=== PATIENT | male | born 1945 | race Caucasian/White ===

== ENCOUNTER 2016-11-03 07:03 | Emergency (ER) | payer MEDICARE ==
--- NOTE | 2016-11-03 08:00 | RAD ---
Indication: Shortness of breath, pneumonia. 2 views of the chest including dual energy PA views are reviewed. Comparison is made with previous exam dated September 06, 2015. Prominent right adriano is again identified. Hyperinflated lung jules with chronic interstitial disease is noted. IMPRESSION: CHRONIC INTERSTITIAL DISEASE WITHOUT DEFINITE EVIDENCE OF PNEUMONIA.
[2016-11-03 08:34] VITALS: BP 178/80
--- NOTE | 2016-11-03 14:33 | UC ---
hardik Mckeon Timothy, scribed for Phoebe Posada MD on 11/03/16 at 0737 . Shortness of Breath HPI - HPI Summary HPI Summary: Omid Vargas is a 70 yo male presenting to [facility] with SOB since and a Hx of COPD. He states 10/31/16 he began having SOB and non-productive cough, which has been increasing. He finished a 7 day course of augmentin and prednisone 20 mg BID, last dose was yesterday. He states this time he felt his SOB was not resolved by ABx, and he feels out of breath with any movement. He states his Sx feel similar to pneumonia. he denies any fever. He states he did have a flu shot in June of 2016. His Hx also includes emphysema, asthma, prostatectomy, and former tobacco use. his PCP is Dr. Eagle, who treats him for COPD flare ups. - History of Current Complaint Stated Complaint: SOB COPD Time Seen by Provider: 11/03/16 07:33 Hx Obtained From: Patient Onset/Duration: Gradual Onset, Lasting Days, Still Present, Worse Since - now Timing: Constant Current Severity: Moderate Dyspnea At: Exertion Aggrevating Factors: Movement Alleviating Factors: Nothing Associated Signs & Symptoms: Positive: Cough (Nonproductive) - Risk Factors Pulmonary Embolism: Negative Cardiac: Elevated lipids Pseudomonas: Chronic Lung Disease Tuberculosis: Corticosteriod Use - Allergy/Home Medications Allergies/Adverse Reactions: Allergies Allergy/AdvReac Type Severity Reaction Status Date / Time Simvastatin Allergy See Comment Verified 11/03/16 07:13 Atorvastatin [From Lipitor] AdvReac Unknown Verified 11/03/16 07:13 Reaction Details Home Medications: Home Medications predniSONE TAB* [Deltasone TAB*] 1 tab 11/03/16 [History] PMH/Surg Hx/FS Hx/Imm Hx Endocrine History Of: Denies: Diabetes, Thyroid Disease Cardiovascular History Of: Reports: Hypertension Denies: Cardiac Disorders, Pacemaker/ICD Respiratory History Of: Reports: COPD, Asthma GI/ History Of: Denies: Ulcer - Surgical History Surgical History: Yes Surgery Procedure, Year, and Place: PROSTATECTOMY,Tonsilectomy - Family History Known Family History: Positive: Hypertension - Social History Lives: With Family Alcohol Use: None Substance Use Type: None Smoking Status (MU): Former Smoker Type: Cigarettes Amount Used/How Often: 30 +years When Did the Patient Quit Smoking/Using Tobacco: 2004 - Immunization History Most Recent Influenza Vaccination: Jun 2016 Most Recent Tetanus Shot: unable to determine Most Recent Pneumonia Vaccination: 2013 Review of Systems Constitutional: Negative Skin: Negative Eyes: Negative ENT: Negative Respiratory: Shortness Of Breath, Cough Cardiovascular: Negative Gastrointestinal: Negative Genitourinary: Negative Motor: Negative Neurovascular: Negative Musculoskeletal: Negative Neurological: Negative Psychological: Negative All Other Systems Reviewed And Are Negative: Yes Physical Exam Triage Information Reviewed: Yes Appearance: No Pain Distress, Well-Nourished, Ill-Appearing Vital Signs: Initial Vital Signs Temp 98.1 F 11/03/16 07:16 Pulse 90 11/03/16 07:16 Resp 20 11/03/16 07:16 Pulse Ox 91 11/03/16 07:16 Vital Signs Reviewed: Yes Eyes: Positive: Conjunctiva Clear ENT: Positive: Hearing grossly normal, TMs normal. Negative: Muffled/hoarse voice Neck: Positive: Supple, Nontender Respiratory: Positive: Chest non-tender, Lungs clear, No respiratory distress, Decreased breath sounds. Negative: Wheezing Cardiovascular: Positive: RRR, No Murmur, Pulses Normal, Brisk Capillary Refill Musculoskeletal: Positive: Strength Intact, ROM Intact Neurological: Positive: Alert, Muscle Tone Normal Psychological Exam: Normal Skin Exam: Normal Diagnostics - Radiology CXR Xray Interpretation: No Acute Changes - IMPRESSION: CHRONIC INTERSTITIAL DISEASE WITHOUT DEFINITE EVIDENCE OF PNEUMONIA. Radiology Interpretation Completed By: Radiologist Re-Evaluation - Re-Evaluation First Eval Re-Evaluation Time: 08:13 Change: Unchanged Comment: Pt is informed of CXR results. Shortness of Breath Dx - Course Course Of Treatment: Omid Vargas is a 70 yo male presenting to [facility] with SOB and worsening cough since 10/31/16. After negative CXR and clinical examination, he will be discharged home with COPD exacerbation and bronchitis a change in antibiotics and a 12 day prednisone taper, as well as appropriate instructions. - Differential Dx/Diagnosis Differential Diagnosis/HQI/PQRI: Bronchitis, COPD Exacerbation, Pneumonia Provider Diagnoses: copd exacerbation, bronchitis Discharge - Discharge Plan Condition: Stable Disposition: HOME Prescriptions: DOXYcycline CAP(*) [DOXYcycline 100MG CAP(*)] 100 mg PO BID #20 cap predniSONE TAB* [Deltasone TAB*] 40 mg PO DAILY #30 tab Patient Education Materials: COPD (Chronic Obstructive Pulmonary Disease) (ED) , Acute Bronchitis (ED) Referrals: Jelly Callahan MD [Primary Care Provider] - 2 Days Additional Instructions: Please follow up with your primary care physician regarding your visit to urgent care today. Return to urgent care or the emergency department with any new or recurring symptoms. The documentation as recorded by the hardik davis Timothy accurately reflects the service I personally performed and the decisions made by me, Phoebe Posada MD.
== END 2016-11-03 08:39 | disposition home or self-care (01) ==
LOC: UCEAST 07:03
DX: J44.1 Chronic obstructive pulmonary disease with (acute) exacerbation (principal); J20.9 Acute bronchitis, unspecified; J44.0 Chronic obstructive pulmonary disease with (acute) lower respiratory infection; Z88.8 Allergy status to other drugs, medicaments and biological substances; Z87.891 Personal history of nicotine dependence
CPT/HCPCS: 71020; 99212; G0463

== ENCOUNTER 2016-11-04 20:10 | Inpatient (IN) | payer MEDICARE ==
[2016-11-04] MEDS ORDERED: Albuterol 2.5 MG/3 ML NEB.SOL* (0.083%) INH ONE (20:40)
[2016-11-04] MEDS ORDERED: methylPREDNISolone SOD SUCC* 125 MG 2 ML VIAL IV ONE (20:44)
[2016-11-04] MEDS ORDERED: NS 0.9% 1000 ML* 1,000 ML IV SCH ×2 (20:45→23:15)
--- NOTE | 2016-11-04 21:15 | RAD ---
INDICATION: Shortness of breath COMPARISON: Similar chest x-ray dated November 03, 2016 as well as chest x-ray dated September 06, 2015 TECHNIQUE: Single AP portable view of the chest was obtained. FINDINGS: Image quality is compromised due to the relative inferiority of a portable chest x-ray. The heart and mediastinum exhibit normal size and contour. Again seen are faint bibasilar reticulonodular densities unchanged from the previous days chest x-ray. At the right lung base there are more focal linear and patchy densities. There is no evidence of a large pleural effusion. Visualized bones are normal for the patient's age. IMPRESSION: Chest x-ray findings are compatible with chronic interstitial lung disease with potential overlying infiltrate at the right lung base.
[2016-11-04 21:33] LABS: Albumin 3.8 g/dL (3.2-5.2); BUN/Creatinine Ratio 28.6 (8-20); C Reactive Protein 2.56 mg/L (< 5.00); Calcium 9.2 mg/dL (8.6-10.3); EGFR African American 97.5 (>60); EGFR Non-African American 75.8 (>60); Globulin 3.1 g/dL (2-4); Potassium 4.4 mmol/L (3.5-5.0); Total Bilirubin 0.7 mg/dL (0.2-1.0); Total Protein 6.9 g/dL (6.4-8.9)
[2016-11-04 21:39] LABS: Troponin I 0.16 ng/mL (<0.04)
[2016-11-04 21:41] LABS: Add Diff/Slide Review? Slide Review Added; Comments Flag Yes; Hematocrit 47 % (42-52); Hemoglobin 15.4 g/dl (14.0-18.0); Mean Corpuscular HGB Conc 33 g/dl (31-36); Mean Corpuscular Hemoglobin 30 pg (27-31); Mean Corpuscular Volume 93 fL (80-94); Mean Platelet Volume 8 um3 (7.4-10.4); Red Blood Count 5.08 10^6/ul (4.0-5.4); Red Cell Distribution Width 15 % (10.5-15); White Blood Count 17.2 10^3/ul (3.5-10.8)
[2016-11-04] MEDS ORDERED: Aspirin Low Dose CHEW TAB* 81 MG PO ONE (21:46)
[2016-11-04] MEDS ORDERED: Levofloxacin 750 MG IVPREMIX(* 750 MG/150 ML BAG IVPB ONE (21:52)
[2016-11-04] MEDS ORDERED: cefTRIAXone(*) 1 GM in NS 0.9% 50 ML* 50 ML IVPB ONE (21:52)
[2016-11-04] MEDS ORDERED: NS 0.9% 1000 ML* 1,000 ML IV ONE (21:53)
--- NOTE | 2016-11-04 21:54 | ED ---
Bjorn Mckeon Rebecca, scribed for Eran Ibarra MD on 11/04/16 at 2043 . Shortness of Breath - HPI Summary HPI Summary: Pt is a 70 y/o M who presents to ED c/o SOB. SOB began suddenly 3-4 days ago and has been constant and worsening since onset. SOB characterized as severe dyspnea at rest. Sx aggravated and alleviated by nothing. Additionally c/o chest congestion. Denies rhinorrhea and sore throat. PMHx COPD. - History of Current Complaint Chief Complaint: EDShortnessOfBreath Time Seen by Provider: 11/04/16 20:32 Hx Obtained From: Patient Onset/Duration: Sudden Onset, Lasting Days - 3-4 days, Still Present Timing: Constant Current Severity: Severe Dyspnea At: Rest Aggrevating Factors: Nothing Alleviating Factors: Nothing Associated Signs & Symptoms: Negative - Allergy/Home Medications Allergies/Adverse Reactions: Allergies Allergy/AdvReac Type Severity Reaction Status Date / Time Simvastatin Allergy See Comment Verified 11/03/16 07:13 Atorvastatin [From Lipitor] AdvReac Unknown Verified 11/03/16 07:13 Reaction Details PMH/Surg Hx/FS Hx/Imm Hx Endocrine/Hematology History: Denies: Hx Diabetes, Hx Thyroid Disease Cardiovascular History: Reports: Hx Hypertension Denies: Hx Pacemaker/ICD Respiratory History: Reports: Hx Asthma, Hx Chronic Obstructive Pulmonary Disease (COPD), Other Respiratory Problems/Disorders - COPD GI History: Denies: Hx Ulcer Sensory History: Reports: Hx Contacts or Glasses Denies: Hx Hearing Aid, Hx Hearing Problem Opthamlomology History: Reports: Hx Contacts or Glasses Psychiatric History: Denies: Hx Panic Disorder - Cancer History Cancer Type, 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 - Surgical History Surgery Procedure, Year, and Place: PROSTATECTOMY,Tonsilectomy Infectious Disease History: No Infectious Disease History: Denies: Hx Clostridium Difficile, Hx Hepatitis, Hx Human Immunodeficiency Virus (HIV), Hx of Known/Suspected MRSA, Hx Shingles, Hx Tuberculosis, Hx Known/ Suspected VRE, Hx Known/Suspected VRSA, History Other Infectious Disease, Traveled Outside the [place] in Last 30 Days - Family History Known Family History: Positive: Hypertension - Social History Alcohol Use: None Substance Use Type: Reports: None Hx Tobacco Use: No Smoking Status (MU): Former Smoker Type: Cigarettes Amount Used/How Often: 30 +years Review of Systems Negative: Sore Throat, Nasal Discharge Positive: Shortness Of Breath - dyspnea at rest, Other - Chest congestion All Other Systems Reviewed And Are Negative: Yes Physical Exam Triage Information Reviewed: Yes Vital Signs On Initial Exam: Initial Vitals Temp Pulse Resp BP Pulse Ox 98.6 F 111 18 130/77 92 11/04/16 20:23 11/04/16 20:23 11/04/16 20:23 11/04/16 20:23 11/04/16 20:23 Vital Signs Reviewed: Yes Appearance: Positive: No Pain Distress, Ill-Appearing - Severe respiratory distress Skin: Positive: Warm, Skin Color Reflects Adequate Perfusion, Dry Head/Face: Positive: Normal Head/Face Inspection Eyes: Positive: EOMI, KEVEN ENT: Positive: Normal ENT inspection Neck: Positive: Supple, Nontender Respiratory/Lung Sounds: Positive: Wheezes - Bilateral wheezes, Other - Poor air movement Cardiovascular: Positive: Tachycardia Abdomen Description: Positive: Nontender, Soft Bowel Sounds: Positive: Present Musculoskeletal: Positive: Normal, Strength/ROM Intact Neurological: Positive: Normal, Sensory/Motor Intact, Alert, Oriented to Person Place, Time Psychiatric: Positive: Affect/Mood Appropriate Diagnostics - Vital Signs Vital Signs Temp Pulse Resp BP Pulse Ox 11/04/16 20:23 98.6 F 111 18 130/77 92 - Laboratory Lab Results: Lab Results 11/04/16 11/04/16 11/04/16 Range/Units 21:00 21:00 21:00 WBC 17.2 H (3.5-10.8) 10^3/ul RBC 5.08 (4.0-5.4) 10^6/ul Hgb 15.4 (14.0-18.0) g/dl Hct 47 (42-52) % MCV 93 (80-94) fL MCH 30 (27-31) pg MCHC 33 (31-36) g/dl RDW 15 (10.5-15) % Plt Count 241 (150-450) 10^3/ul MPV 8 (7.4-10.4) um3 Neut % (Auto) 89.0 H (38-83) % Lymph % (Auto) 2.2 L (25-47) % [place] % (Auto) 8.7 (1-9) % Eos % (Auto) 0 (0-6) % Baso % (Auto) 0.1 (0-2) % Absolute Neuts (auto) 15.3 H (1.5-7.7) 10^3/ul Absolute Lymphs (auto) 0.4 L (1.0-4.8) 10^3/ul Absolute Monos (auto) 1.5 H (0-0.8) 10^3/ul Absolute Eos (auto) 0 (0-0.6) 10^3/ul Absolute Basos (auto) 0 (0-0.2) 10^3/ul Absolute Nucleated RBC 0 10^3/ul Nucleated RBC % 0 INR (Anticoag Therapy) 0.88 L (0.89-1.11) APTT 20.1 L (26.0-36.3) seconds Sodium 132 L (133-145) mmol/L Potassium 4.4 (3.5-5.0) mmol/L Chloride 97 L (101-111) mmol/L Carbon Dioxide 24 (22-32) mmol/L Anion Gap 11 (2-11) mmol/L BUN 28 H (6-24) mg/dL Creatinine 0.98 (0.67-1.17) mg/dL Est GFR ( Amer) 97.5 (>60) Est GFR (Non-Af Amer) 75.8 (>60) BUN/Creatinine Ratio 28.6 H (8-20) Glucose 186 H (70-100) mg/dL Lactic Acid (0.5-2.0) mmol/L Calcium 9.2 (8.6-10.3) mg/dL Total Bilirubin 0.70 (0.2-1.0) mg/dL AST 19 (13-39) U/L ALT 18 (7-52) U/L Alkaline Phosphatase 45 (34-104) U/L Total Creatine Kinase 80 (10-223) U/L CK-MB (CK-2) 9.2 H (0.6-6.3) ng/mL Troponin I 0.16 H* (<0.04) ng/mL C-Reactive Protein 2.56 (< 5.00) mg/L B-Natriuretic Peptide ( - 100) pg/mL Total Protein 6.9 (6.4-8.9) g/dL Albumin 3.8 (3.2-5.2) g/dL Globulin 3.1 (2-4) g/dL Albumin/Globulin Ratio 1.2 (1-3) Lipase 12 (11.0-82.0) U/L TSH Pending 11/04/16 11/04/16 Range/Units 21:00 21:00 WBC (3.5-10.8) 10^3/ul RBC (4.0-5.4) 10^6/ul Hgb (14.0-18.0) g/dl Hct (42-52) % MCV (80-94) fL MCH (27-31) pg MCHC (31-36) g/dl RDW (10.5-15) % Plt Count (150-450) 10^3/ul MPV (7.4-10.4) um3 Neut % (Auto) (38-83) % Lymph % (Auto) (25-47) % [place] % (Auto) (1-9) % Eos % (Auto) (0-6) % Baso % (Auto) (0-2) % Absolute Neuts (auto) (1.5-7.7) 10^3/ul Absolute Lymphs (auto) (1.0-4.8) 10^3/ul Absolute Monos (auto) (0-0.8) 10^3/ul Absolute Eos (auto) (0-0.6) 10^3/ul Absolute Basos (auto) (0-0.2) 10^3/ul Absolute Nucleated RBC 10^3/ul Nucleated RBC % INR (Anticoag Therapy) (0.89-1.11) APTT (26.0-36.3) seconds Sodium (133-145) mmol/L Potassium (3.5-5.0) mmol/L Chloride (101-111) mmol/L Carbon Dioxide (22-32) mmol/L Anion Gap (2-11) mmol/L BUN (6-24) mg/dL Creatinine (0.67-1.17) mg/dL Est GFR ( Amer) (>60) Est GFR (Non-Af Amer) (>60) BUN/Creatinine Ratio (8-20) Glucose (70-100) mg/dL Lactic Acid 4.4 H* (0.5-2.0) mmol/L Calcium (8.6-10.3) mg/dL Total Bilirubin (0.2-1.0) mg/dL AST (13-39) U/L ALT (7-52) U/L Alkaline Phosphatase (34-104) U/L Total Creatine Kinase (10-223) U/L CK-MB (CK-2) (0.6-6.3) ng/mL Troponin I (<0.04) ng/mL C-Reactive Protein (< 5.00) mg/L B-Natriuretic Peptide 99 ( - 100) pg/mL Total Protein (6.4-8.9) g/dL Albumin (3.2-5.2) g/dL Globulin (2-4) g/dL Albumin/Globulin Ratio (1-3) Lipase (11.0-82.0) U/L TSH Result Diagrams: 11/04/16 21:00 11/04/16 21:00 Lab Statement: Any lab studies that have been ordered have been reviewed, and results considered in the medical decision making process. - Radiology CXR Radiology Interpretation Completed By: Radiologist - Chest x-ray findings are compatible with chronic interstitial lung disease with potential overlying infiltrate at the right lung base. - EKG 2041 Cardiac Rate: Tachycardia - 128 bpm EKG Rhythm: Atrial Fibrillation - rapid ST Segment: Non-Specific - ST depression in V2-V6 Ectopy: None Re-Evaluation - Re-Evaluation First Eval Re-Evaluation Time: 20:53 Change: Improved Comment: Left pt's room to receive help, help went in and pt brought up a significant amount of phlegm. He is now more relaxed and decreased from severe to moderate respiratory distress. Second Eval Re-Evaluation Time: 21:53 Change: Improved Comment: Pt is feeling better. Course/Dx - Course Assessment/Plan: IMPROVED IN ED. ADMIT HOSPITALIST STABLE. - Diagnoses Provider Diagnoses: Pneumonia, COPD (chronic obstructive pulmonary disease), Troponin level elevated - Physician Notifications Discussed Care of Patient With: Dr. Smith, hospitalist, who accepts pt for admission. Time Discussed With Above Provider: 21:51 Discharge - Discharge Plan Condition: Stable Disposition: ADMITTED TO [facility] Referrals: Jelly Callahan MD [Primary Care Provider] - The documentation as recorded by the scribe, DiFabio,Lulú accurately reflects the service I personally performed and the decisions made by me, Eran Ibarra MD.
[2016-11-04 21:57] LABS: TSH (Thyroid Stimulating Horm) 0.77 mcIU/mL (0.34-5.60)
--- NOTE | 2016-11-04 22:20 | HP ---
H&P (Free Text) History and Physical: PCP: Isabell Garcia MD Pulmonology: Parker Villatoro/Michelle Date/Time of Evaluation: 11/04/20162214 CC: SOB, productive cough HPI: Mr Celis is a 70YO male HX COPD who reports having recurrent respiratory issues throughout the winter. 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 He presented to urgent care yesterday and was placed on doxycyline BID and his prednisone changed to 40mg daily which he said initially made him feel much better. However over the course of the day, his cough, SOB, & fatigue worsened prompting him to present for further evaluation. He denies F/C, N/V/D, chest pain, palpitations, abdominal pain, or other issues. His influenza & pneumonia vaccines are up to date. Evaluation reveals AFIB rate up to 130s with minimal ST depression V2-6, PMedHx COPD HTN HLD HX prostate CA s/p prostatectomy Allergies Simvastatin Allergy (Verified 11/03/16 07:13) See Comment "blood test came back, it wasn't compatible with me." Atorvastatin [From Lipitor] Adverse Reaction (Verified 11/03/16 07:13) Unknown Reaction Details states it elevates his LFT dramatically Ambulatory Orders Patient w/o medication list, will need reconciling in AM via Rx. PSurgHx tonsillectomy prostatectomy SocHx: former smoker, no alcohol or recreational drugs; lives with his ; full code status FamHx: Father passed in his 70s of a CVA. Mother passed in her sleep in her 60s. ROS: as above, otherwise reviewed and all were negative Constitutional: NAD, normally developed, well-nourished white male appearing older than his stated age vitals: Vital Signs Temp 37.0 C 11/04/16 20:23 Pulse 108 11/04/16 22:00 Resp 16 11/04/16 20:56 BP 126/80 11/04/16 22:00 Pulse Ox 95 11/04/16 22:00 Intake & Output 11/03/16 11/04/16 11/04/16 23:59 11:59 23:59 Weight 74.843 kg HEENM: atraumatic; sclera/conjunctiva: non-icteric/clear; hearing: clinically intact; oropharynx: clear, mucosa tacky Neck: soft tissue: non-tender; thyroid: normal Pulmonary: diminished B w/ tubular breath sounds in R base, poor aeration, mild accessory muscle use CV: TIR/IR, normal S1S2, no carotid bruit, no jugular venous distention, 2+ B DP /PT, no edema Abdominal: soft, non-distended, non-tender, no rebound/guarding/rigidity, normoactive bowel sounds, no hepatosplenomegaly or masses, no costovertebral angle tenderness Musculoskeletal: general: grossly intact; gait: calvin Integumental: normal appearance and texture of exposed skin Psychiatric orientation: AA&O to PPS affect: calm mood: cooperative eye contact: good content: reliable responses: timely insight: good Testing: Lab Results 11/04/16 11/04/16 11/04/16 Range/Units 21:00 21:00 21:00 WBC 17.2 H (3.5-10.8) 10^3/ul RBC 5.08 (4.0-5.4) 10^6/ul Hgb 15.4 (14.0-18.0) g/dl Hct 47 (42-52) % MCV 93 (80-94) fL MCH 30 (27-31) pg MCHC 33 (31-36) g/dl RDW 15 (10.5-15) % Plt Count 241 (150-450) 10^3/ul MPV 8 (7.4-10.4) um3 Neut % (Auto) 89.0 H (38-83) % Lymph % (Auto) 2.2 L (25-47) % [place] % (Auto) 8.7 (1-9) % Eos % (Auto) 0 (0-6) % Baso % (Auto) 0.1 (0-2) % Absolute Neuts (auto) 15.3 H (1.5-7.7) 10^3/ul Absolute Lymphs (auto) 0.4 L (1.0-4.8) 10^3/ul Absolute Monos (auto) 1.5 H (0-0.8) 10^3/ul Absolute Eos (auto) 0 (0-0.6) 10^3/ul Absolute Basos (auto) 0 (0-0.2) 10^3/ul Absolute Nucleated RBC 0 10^3/ul Nucleated RBC % 0 INR (Anticoag Therapy) 0.88 L (0.89-1.11) APTT 20.1 L (26.0-36.3) seconds Sodium 132 L (133-145) mmol/L Potassium 4.4 (3.5-5.0) mmol/L Chloride 97 L (101-111) mmol/L Carbon Dioxide 24 (22-32) mmol/L Anion Gap 11 (2-11) mmol/L BUN 28 H (6-24) mg/dL Creatinine 0.98 (0.67-1.17) mg/dL Est GFR ( Amer) 97.5 (>60) Est GFR (Non-Af Amer) 75.8 (>60) BUN/Creatinine Ratio 28.6 H (8-20) Glucose 186 H (70-100) mg/dL Lactic Acid (0.5-2.0) mmol/L Calcium 9.2 (8.6-10.3) mg/dL Total Bilirubin 0.70 (0.2-1.0) mg/dL AST 19 (13-39) U/L ALT 18 (7-52) U/L Alkaline Phosphatase 45 (34-104) U/L Total Creatine Kinase 80 (10-223) U/L CK-MB (CK-2) 9.2 H (0.6-6.3) ng/mL Troponin I 0.16 H* (<0.04) ng/mL C-Reactive Protein 2.56 (< 5.00) mg/L B-Natriuretic Peptide ( - 100) pg/mL Total Protein 6.9 (6.4-8.9) g/dL Albumin 3.8 (3.2-5.2) g/dL Globulin 3.1 (2-4) g/dL Albumin/Globulin Ratio 1.2 (1-3) Lipase 12 (11.0-82.0) U/L TSH 0.77 (0.34-5.60) mcIU/mL 11/04/16 11/04/16 Range/Units 21:00 21:00 WBC (3.5-10.8) 10^3/ul RBC (4.0-5.4) 10^6/ul Hgb (14.0-18.0) g/dl Hct (42-52) % MCV (80-94) fL MCH (27-31) pg MCHC (31-36) g/dl RDW (10.5-15) % Plt Count (150-450) 10^3/ul MPV (7.4-10.4) um3 Neut % (Auto) (38-83) % Lymph % (Auto) (25-47) % [place] % (Auto) (1-9) % Eos % (Auto) (0-6) % Baso % (Auto) (0-2) % Absolute Neuts (auto) (1.5-7.7) 10^3/ul Absolute Lymphs (auto) (1.0-4.8) 10^3/ul Absolute Monos (auto) (0-0.8) 10^3/ul Absolute Eos (auto) (0-0.6) 10^3/ul Absolute Basos (auto) (0-0.2) 10^3/ul Absolute Nucleated RBC 10^3/ul Nucleated RBC % INR (Anticoag Therapy) (0.89-1.11) APTT (26.0-36.3) seconds Sodium (133-145) mmol/L Potassium (3.5-5.0) mmol/L Chloride (101-111) mmol/L Carbon Dioxide (22-32) mmol/L Anion Gap (2-11) mmol/L BUN (6-24) mg/dL Creatinine (0.67-1.17) mg/dL Est GFR ( Amer) (>60) Est GFR (Non-Af Amer) (>60) BUN/Creatinine Ratio (8-20) Glucose (70-100) mg/dL Lactic Acid 4.4 H* (0.5-2.0) mmol/L Calcium (8.6-10.3) mg/dL Total Bilirubin (0.2-1.0) mg/dL AST (13-39) U/L ALT (7-52) U/L Alkaline Phosphatase (34-104) U/L Total Creatine Kinase (10-223) U/L CK-MB (CK-2) (0.6-6.3) ng/mL Troponin I (<0.04) ng/mL C-Reactive Protein (< 5.00) mg/L B-Natriuretic Peptide 99 ( - 100) pg/mL Total Protein (6.4-8.9) g/dL Albumin (3.2-5.2) g/dL Globulin (2-4) g/dL Albumin/Globulin Ratio (1-3) Lipase (11.0-82.0) U/L TSH (0.34-5.60) mcIU/mL ECG, personally reviewed: AFIB rate 128, minimal ST depression V2-6 CXR, personally reviewed: IMPRESSION: Chest x-ray findings are compatible with chronic interstitial lung disease with potential overlying infiltrate at the right lung base. Impression: 70M presenting with COPD exacerbation 2nd RLL CAP failed outpatient amoxicillin clavulanate DIAGNOSIS & PLAN Primary sepsis (tachycardia, tachypnea, leukocytosis) 2nd RLL CAP : IVFs : IV levofloxacin : supplemental oxygen : blood & sputum CXs : check rapid influenza : check S pneumo & Legionella urine antigens COPD exacerbation : albuterol nebs : mometasone/salmeterol : tiotropium : IV methylprednisolone : supplemental oxygen elevated troponin : suspect demand ischemia : telemetry : aspirin : metoprolol : trend : check ECHO in AM : consider cardiology consult in AM pending clinical course AFIB/RVR, new diagnosis : [id number] score 1 : at least partially compensatory for sepsis : plan on rate control to <120s : heparin GTT Secondary HTN : controlled : consider outpatient meds once reconciled HLD : continue medication once reconciled Admission Rational: inpatient for management of sepsis 2nd RLL CAP complicated by new onset AFIB/RVR DVTp: heparin GTT Code Status: full HCP:
[2016-11-04] MEDS ORDERED: Acetaminophen TAB* 325 MG PO PRN (23:11)
[2016-11-04] MEDS ORDERED: Albuterol 2.5 MG/3 ML NEB.SOL* (0.083%) INH PRN (23:11)
[2016-11-04] MEDS ORDERED: Melatonin (NF) 3 MG TAB PO PRN (23:12)
[2016-11-04] MEDS ORDERED: Ondansetron INJ* 2 MG/ML VIAL IV PRN (23:13)
[2016-11-04] MEDS ORDERED: Heparin DRIP 25,000 UNITS(*) 25,000 UNITS/500 ML BAG IVPB SCH (23:15)
[2016-11-05] MEDS: Albuterol 2.5 MG/3 ML NEB.SOL* (0.083%) INH SCH ×4 (01:20→19:49)
[2016-11-05] MEDS: Heparin VIAL(*) 5000 UNITS/ML VIAL (FIVE THOUSAND) IV SCH ×2 (01:39→06:09)
[2016-11-05] MEDS: Metoprolol Succinate XL TAB* 25 MG PO SCH ×2 (01:40→09:59)
--- NOTE | 2016-11-05 02:17 | PN ---
Progress Note - Progress Note Note: Troponin up to 1.4 from 0.16. Repeat ECG done, no change. Nursing reports no chest pain. Continue current management; aspirin, metoprolol, & heparin GTT. Will consult cardiology in AM & check ECHO.
[2016-11-05] MEDS: Omeprazole CAP* 20 MG PO SCH (05:23)
[2016-11-05 05:45] LABS: Hematocrit 42 % (42-52); Hemoglobin 13.8 g/dl (14.0-18.0); Mean Corpuscular HGB Conc 33 g/dl (31-36); Mean Corpuscular Hemoglobin 30 pg (27-31); Mean Corpuscular Volume 93 fL (80-94); Mean Platelet Volume 8 um3 (7.4-10.4); Red Blood Count 4.55 10^6/ul (4.0-5.4); Red Cell Distribution Width 14 % (10.5-15); White Blood Count 12.7 10^3/ul (3.5-10.8)
[2016-11-05 05:57] LABS: Add Diff/Slide Review? Slide Review Added; Comments Flag Yes
[2016-11-05 06:02] LABS: BUN/Creatinine Ratio 34.6 (8-20); Calcium 8.5 mg/dL (8.6-10.3); EGFR African American 121.5 (>60); EGFR Non-African American 94.5 (>60); Potassium 4.4 mmol/L (3.5-5.0)
[2016-11-05 06:20] LABS: Urine Bacteria Absent (Absent); Urine Bilirubin Negative (Negative); Urine Glucose Negative (Negative); Urine Nitrite Negative (Negative)
[2016-11-05] MEDS: Mometasone/Formoter 200/5 MDI INH SCH ×2 (07:47→19:49)
[2016-11-05] MEDS: Tiotropium CAP.INH* CAP.INH/18 MCG INH SCH (07:47)
[2016-11-05] MEDS ORDERED: Aspirin TAB* 325 MG PO SCH (09:00)
[2016-11-05] MEDS ORDERED: Spiriva Inhaler DEVICE* 1 EACH DEVICE INH ONE (09:00)
[2016-11-05] MEDS: methylPREDNISolone SOD SUCC* 40 MG/ML VIAL IV SCH ×2 (09:54→17:33)
[2016-11-05] MEDS: Docusate CAP* 100 MG PO SCH ×2 (09:58→21:51)
[2016-11-05] MEDS: guaiFENesin ER TAB 600 MG PO SCH ×2 (09:59→21:51)
--- NOTE | 2016-11-05 10:18 | PN ---
Subjective Date of Service: 11/05/16 Interval History: Patient seen this morning. Says he is feeling much better today. Breathing easier, less phlegm and cough. No fever or chills. No chest pain. Family History: Unchanged from Admission Social History: Unchanged from Admission Past Medical History: Unchanged from Admission Objective Active Medications: Acetaminophen (Tylenol Tab*) 650 mg PO Q6H PRN Albuterol (Ventolin 2.5 Mg/3 Ml Neb.Mariella*) 2.5 mg INH Q2H PRN Albuterol (Ventolin 2.5 Mg/3 Ml Neb.Mariella*) 2.5 mg INH [id number] AWAKE [facility] Aspirin (Aspirin Tab*) 325 mg PO DAILY SHAUNA Docusate Sodium (Colace Cap*) 200 mg PO BID SHAUNA Guaifenesin (Mucinex*) 1,200 mg PO BID SHAUNA Heparin Sodium (Porcine) (Heparin Vial(*)) 0 units IV .PER PROTOCOL SHAUNA Heparin Sodium/Dextrose (Heparin Drip 25,000 Units(*)) 25,000 units in 500 mls @ 0 mls/hr IVPB .(INITIAL RATE) SHAUNA; Per Protocol Levofloxacin/Dextrose (Levaquin 750 Mg Ivpremix(*)) 750 mg in 150 mls @ 100 mls /hr IVPB Q24H SHAUNA Sodium Chloride (Ns 0.9% 1000 Ml*) 1,000 mls @ 100 mls/hr IV PER RATE SHAUNA Melatonin (Melatonin (Nf)) 3 mg PO BEDTIME PRN; Protocol Methylprednisolone Sodium Succinate (Solu-Medrol*) 40 mg IV Q8H [facility] Metoprolol Succinate (Toprol Xl Tab*) 12.5 mg PO DAILY [facility] Mometasone Furoate/Formoterol Fumar (Dulera 200/5 Mdi*) 2 puff INH BID SHAUNA Omeprazole (Prilosec Cap*) 20 mg PO DAILY@0600 SHAUNA Ondansetron HCl (Zofran Inj*) 4 mg IV Q6H PRN Tiotropium [place] (Spiriva Cap.Inh*) 1 cap INH DAILY [facility] Vital Signs 11/04/16 11/04/16 11/05/16 23:08 23:30 00:00 Temperature Pulse Rate 110 112 111 Respiratory Rate Blood Pressure 119/68 134/76 (mmHg) O2 Sat by Pulse 94 97 97 Oximetry 11/05/16 11/05/1611/05/17 07:40 07:51 08:40 Temperature 98.2 F Pulse Rate 97 86 Respiratory 20 18 Rate Blood Pressure 138/81 132/78 (mmHg) O2 Sat by Pulse 100 97 99 Oximetry Oxygen Devices in Use Now: Nasal Cannula - 3L Appearance: Elderly, M, laying in bed in NAD Eyes: No Scleral Icterus Ears/Nose/Mouth/Throat: Mucous Membranes Moist Neck: NL Appearance and Movements; NL JVP Respiratory: Symmetrical Chest Expansion and Respiratory Effort, - - Bronchial BS, prolonged expiratory phase, no wheezing, fair air movement Cardiovascular: - - IRIR, no m/g/r, normal rate Abdominal: NL Sounds; No Tenderness; No Distention Lymphatic: No Cervical Adenopathy Extremities: No Edema Skin: No Rash or Ulcers Neurological: Alert and Oriented x 3 Result Diagrams: 11/05/16 05:01 11/05/16 05:01 Additional Lab and Data: Microbiology and Other Data: Microbiology 11/05/16 00:38 Influenza Types A,B Antigen (KALEB) - Final Nasal Specimen received for Influenza A/B Molecular testing Assess/Plan/Problems-Billing Assessment: COPD exacerbation, new AFib, NSTEMI in a 70 yo M with hx of HTN, HLD, COPD not on home O2 - Patient Problems (1) COPD exacerbation Current Visit: Yes Comment: Improving. Continue solumderol for today. Continue Spiriva, Dulera, nebs. Wean O2. Continue CTX/Azithro for possible CAP component. (2) Troponin level elevated Current Visit: Yes Comment: Seems likely demand-mediated. Trop at 2 this AM, continue to trend. Continue metoprolol, heparin gtt. Continue ASA. Cardiology consult placed. Echo done, pending read. (3) Atrial fibrillation Current Visit: Yes Comment: Continue heparin gtt, metoprolol. [id number] is 1- 2 (unclear if HTN history, currently reconciling medications). (4) HLD (hyperlipidemia) Current Visit: No Comment: Med rec pending (5) HTN (hypertension) Current Visit: No Status: Chronic Code(s): I10 - ESSENTIAL (PRIMARY) HYPERTENSION SNOMED Code(s): 97394691 Comment: Med rec pending. (6) DVT prophylaxis Current Visit: Yes Comment: Heparin
--- NOTE | 2016-11-05 14:05 | ECHO ---
Patient: MARY WARNER [facility] Rec#: [id number] : 1945 Date: 11/05/2016 Age: 70y Height: 170 cm / 66.9 in Weight: 74 kg / 163.1 lbs Sex: M BSA: 1.85 Room#: [facility] Admit Date#: 11/04/2016 Type: Inpatient Referring: Caio Smith MD Reading: Natalia Gonzalez MD Legal Secretary: Arturo Luis RDCS CC: Jelly Callahan MD Transthoracic Echocardiogram Indication: Elevated troponin BP: 125/74 HR: 101 Rhythm: A-Fib Findings History: COPD,HTN,HLD,former smoker Technical Comments: The study quality is fair. The study is technically limited due to patient body habitus. Left Ventricle: The left ventricular chamber size is normal. Global left ventricular wall motion and contractility are within normal limits. There is normal left ventricular systolic function. The estimated ejection fraction is 50-55%. The assessment of diastolic function is non-diagnostic. Left Atrium: The left atrium is slightly dilated. Right Ventricle: The right ventricular cavity size is normal. The right ventricular global systolic function is normal. Right Atrium: The right atrial cavity size is normal. Aortic Valve: The aortic valve is trileaflet. There is a trace of aortic regurgitation. There is no evidence of aortic stenosis. Mitral Valve: The mitral valve leaflets appear normal. There is a trace of mitral regurgitation. There is no evidence of mitral stenosis. Tricuspid Valve: The tricuspid valve appears normal in structure and function. There is no evidence of tricuspid valve regurgitation. Pulmonic Valve: The pulmonic valve structure is not well visualized. There is no evidence of pulmonic regurgitation. There is no pulmonic stenosis. Pericardium: There is no pericardial effusion. Aorta: There is no dilatation of the ascending aorta. The aortic arch is not well visualized. There is no dilation of the aortic root. Pulmonary Artery: The main pulmonary artery is not well visualized. Venous: The inferior vena cava is not visualized. Conclusions Global left ventricular wall motion and contractility are within normal limits. The estimated ejection fraction is 50-55%. The right ventricular global systolic function is normal. All valves show good function. There is trace aortic and mitral regurgitation. No prior echo to compare. Measurements Name Value Normal Range RVIDd (AP) 2D 2.5 cm (0.9 - 2.6) RVDdMajor (2D) 3 cm (2.2 - 4.4) RAd ISD 4CH 4.5 cm (3.4 - 4.9) RA (A4C)W 3.6 cm (2.9 - 4.6) IVSd (2D) 0.9 cm (0.6 - 1) LVPWd (2D) 0.9 cm (0.6 - 1) LVIDd (2D) 4.7 cm (3.6 - 5.4) LVIDs (2D) 3.5 cm - LV FS (2D) 26 % (25 - 45) Aortic Annulus 1.9 cm (1.4 - 2.6) Ao root diameter (2D) 3.3 cm (2.1 - 3.5) Ascending Ao 3.1 cm (2.1 - 3.4) LA dimension (AP) 2D 3 cm (2.3 - 3.8) LAd ISD 4CH 4.5 cm (2.9 - 5.3) LA ISD 4CH W 3.7 cm (2.5 - 4.5) Name Value Normal Range LA ESV SP 4CH (A/L) 60 ml - LA ESV SP 2CH (A/L) 62 ml - LA ESV BP (A/L) 65 ml - LA ESV BP (A/L) index 35.34 ml/m2 - LA ESV SP 4CH (MOD) 54 ml - LA ESV SP 2CH (MOD) 55 ml - Name Value Normal Range MV E-wave Vmax 0.94 m/sec - MV deceleration time 171 msec - MV A-wave Vmax 0.02 m/sec - MV E:A ratio 99.67 ratio - LV septal e' Vmax 11.75 m/sec - LV lateral e' Vmax 8.5 m/sec - LV E:e' septal ratio 0.08 ratio - LV E:e' lateral ratio 0.11 ratio - Name Value Normal Range LVOT diameter 2.3 cm - LVOT Vmax 0.6 m/sec - Name Value Normal Range PV Vmax 0.9 m/sec -
[2016-11-05] MEDS: Apixaban* 5 MG TAB PO SCH ×2 (17:33→21:51)
[2016-11-05] MEDS ORDERED: Apixaban* 5 MG TAB PO SCH (21:00)
[2016-11-05] MEDS: Azithromycin TAB* 250 MG PO SCH (21:51)
[2016-11-05] MEDS ORDERED: Levofloxacin 750 MG IVPREMIX(* 750 MG/150 ML BAG IVPB SCH (22:00)
[2016-11-05] MEDS ORDERED: cefTRIAXone VIAL(*) 1,000 MG in NS 0.9% 50 ML* 50 ML IVPB SCH (22:00)
--- NOTE | 2016-11-05 22:32 | CONS ---
CC: Hospitalist Service; Dr. Garcia; Dr. Eagle CARDIOLOGY CONSULTATION: DATE OF CONSULT: 11/05/16 PRIMARY CARE DOCTOR: Dr. Garcia. RIGHT OF WAY APPRAISER: Dr. Eagle. REASON FOR CONSULTATION: Elevated troponins. The patient's chief complaint is shortness of breath. HISTORY OF PRESENT ILLNESS: Mr. Celis is a 70-year-old gentleman who is a former smoker with a history of significant COPD, followed by Pulmonology. The patient and his who is present during the exam state that he has had cold- like symptoms for a month. He has been on and off high-dose steroids several times in the last month (prednisone 40 mg) and Augmentin. He was seen several days ago at [facility] because of resistance to the above measures and was started on a different antibiotic, they are unaware of the name. He presented to the emergency room because his breathing was just getting worse. In the emergency room, he was found to be in atrial fibrillation of uncertain duration with a rapid ventricular rate and was also felt to have a COPD exacerbation and admitted. He has been placed overnight on Zithromax inhalers and Solu-Medrol with significant interval improvement in how he is feeling. His concurs. The patient is unaware of any palpitations or racing of the heart. He denies any history of chest pain, pressure, or heaviness. He admitted that last night , he had some transient nausea, but he attributed that to spaghetti he had eaten. PAST MEDICAL HISTORY: The patient has a past medical history of COPD, frequent steroid use, hypertension, dyslipidemia, history of prostate cancer, status post prostatectomy. PAST SURGICAL HISTORY: Includes his prostatectomy and tonsillectomy. FAMILY HISTORY: His father in his 70s of a stroke. His mother in her sleep in the 60s. The patient denies any known history of underlying atherosclerotic disease or other heart issues. 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 He smoked in the past. He denies alcohol or recreational drug use. REVIEW OF SYSTEMS: As above. No recent travel. His appetite has been good. The patient denies any change in weight, any increase in abdominal girth, or lower extremity edema. He admits to orthopnea during this process and in fact several weeks ago bought a hospital bed that he could raise the back up. PHYSICAL EXAM: The patient is 5 feet 6 inches, weighs 166 pounds with a BMI of 27. Blood pressure 140/73. He is in AFib with rates of around 100 beats a minute. Temperature 98.1, oxygen saturations on 3 L nasal cannula at 98% to 99% . General Appearance: Somewhat overweight older gentleman, seated at 70 degrees, oxygen on, mildly tachypneic, but able to talk comfortably. Skin: Without appreciable cyanosis. He has multiple areas of ecchymosis in the exposed areas, particularly the arms consistent with his chronic prednisone use. HEENT: Pupils are equal and round. Mucous membranes moist. Neck without appreciable thyromegaly or lymphadenopathy. Palpable carotid pulses, free of bruits. Breath sounds very distant, but no wheezing. Some rare crackles in the bases. Coronary: S1, S2. Irregularly irregular and tachycardic. Abdomen: Overweight and suboptimal exam as I did not lay him flat , but no obvious hepatomegaly or pulsatile liver. Lower extremities showed trace edema and were warm. DIAGNOSTIC STUDIES/LAB DATA: The patient's 12-lead ECG on admission last night confirmed atrial fibrillation with a ventricular rate of 128 beats a minute, QRS axis of +15, normal interventricular conduction times, mild ST depression in the lateral leads, V5 and V6, and some motion artifact. EKG this morning confirms persistent atrial fibrillation, rate is now 84 beats a minute, and interval resolution of his lateral ST depression. When this EKG is compared with his most recent EKG in the [facility] system of 06/19/15, the atrial fibrillation replaces normal sinus rhythm. Echocardiogram done today shows normal left ventricular wall motion and systolic function with an ejection fraction of 50% to 55%, normal right ventricular function, and normal valvular function. Labs: White count 17.2 on admission, today 12.7; hemoglobin 13.8; hematocrit 42 ; platelets 210. Increased neutrophils. INR 0.88. PTT now 98.1. Sodium 133, potassium 4.4, chloride 102, bicarb 25, glucose 159, BUN 28, creatinine 0.81. Troponin #1 0.16, troponin #2 1.42, troponin #3 2.0, troponin #4 1.59. BNP of 99. Lactic acid 4.4 on admission and this morning 1.8. Urinalysis positive for red blood cells, no evidence of infection. Influenza A and B serologies are negative. Chest x-ray on admission shows chronic interstitial lung disease. Lipids, 12/13/15, showed total cholesterol 209, triglycerides 94, LDL cholesterol 106, and HDL cholesterol 84. SUMMARY: Mr. Celis is a 70-year-old gentleman with a month-long history of COPD exacerbation that progressed despite intermittent [id number] dose oral steroids and antibiotics. He was found to be in atrial fibrillation of unknown duration with a rapid ventricular rate, lateral ST depression and mild bump in troponins in addition to exam consistent with COPD exacerbation. The patient has responded well to a combination of inhalers, intravenous steroids, and rate control with metoprolol and does not appear to be wheezing with the addition of the beta-joya. He has mild elevation in troponins, mild ST depression that reversed with rate control and beta joya and normal ventricular function. In terms of the patient's atrial fibrillation, it is not surprising in the setting of decompensated respiratory status and longstanding COPD, I would recommend anticoagulation. He would likely do better on a NOAC with his chronic intermittent steroid use than Coumadin and I would continue the rate control with beta-joya as long as his lungs tolerate it. If they do not, Cardizem would be a good alternative. The elevated troponins could represent elevation from the atrial fibrillation itself which is commonly seen, but could also represent underlying atherosclerotic heart disease. I would recommend non-urgently getting an either exercise or chemical stress test, but his respiratory status will need to be stabilized first and we will need to medically manage him. I would not add an aspirin as I am worried about bleeding risk with his chronic steroid use. We could try to cardiovert the patient non-urgently using HUGO guidance, but I do not believe he would maintain sinus rhythm with his respiratory status as it is now and this should be deferred for a few days or until his respiratory status is at or close to his baseline. I guess atherosclerotic risks include possible family history with his mother dying in the sleep, recent hyperglycemia maybe prednisone related is concerning for early diabetes, his history of hypertension. His cholesterol panel looks good and past smoking history. Further recommendations will be made pending his response to the above management and clinical course. [id number]/[facility] #: [id number] [facility] MEDICAL CENTERMainor
[2016-11-06] MEDS: Albuterol 2.5 MG/3 ML NEB.SOL* (0.083%) INH SCH ×2 (01:00→07:34)
[2016-11-06] MEDS: methylPREDNISolone SOD SUCC* 40 MG/ML VIAL IV SCH ×2 (01:29→09:43)
[2016-11-06] MEDS: Omeprazole CAP* 20 MG PO SCH (05:20)
[2016-11-06 06:29] LABS: Hematocrit 42 % (42-52); Hemoglobin 14.1 g/dl (14.0-18.0); Mean Corpuscular HGB Conc 33 g/dl (31-36); Mean Corpuscular Hemoglobin 31 pg (27-31); Mean Corpuscular Volume 92 fL (80-94); Mean Platelet Volume 8 um3 (7.4-10.4); Red Blood Count 4.58 10^6/ul (4.0-5.4); Red Cell Distribution Width 14 % (10.5-15); White Blood Count 14.4 10^3/ul (3.5-10.8)
[2016-11-06 06:35] LABS: Add Diff/Slide Review? Slide Review Added; Comments Flag Yes
[2016-11-06] MEDS: Tiotropium CAP.INH* CAP.INH/18 MCG INH SCH (07:34)
[2016-11-06] MEDS: Mometasone/Formoter 200/5 MDI INH SCH (07:35)
[2016-11-06] MEDS ORDERED: Aspirin Low Dose CHEW TAB* 81 MG PO SCH (09:00)
[2016-11-06] MEDS ORDERED: amLODIPine TAB* 5 MG PO SCH (09:00)
[2016-11-06] MEDS: Metoprolol Succinate XL TAB* 25 MG PO SCH (09:44)
[2016-11-06] MEDS: Docusate CAP* 100 MG PO SCH (09:44)
[2016-11-06] MEDS: Azithromycin TAB* 250 MG PO SCH (09:44)
[2016-11-06] MEDS: Apixaban* 5 MG TAB PO SCH (09:44)
[2016-11-06] MEDS: guaiFENesin ER TAB 600 MG PO SCH (09:44)
[2016-11-06 10:11] VITALS: BP 142/63
--- NOTE | 2016-11-06 10:57 | DCNOTE ---
Patient seen this morning. Feeling well, denies SOB, wheezing, chest pain. Has been ambulating with no issues. On exam, IRIR, normal rate, no m/g/r, lungs CTA B/L, no LE edema Plan to discharge home with oral ABx and steroids. Will continue on beta- joya and Eliquis. Will need outpatient follow-up for cardiac stress test.
--- NOTE | 2016-11-07 03:11 | DS ---
DISCHARGE SUMMARY: DATE OF ADMISSION: 11/04/16 DATE OF DISCHARGE: 11/06/16 PRIMARY CARE PROVIDER: Jelly Garcia MD. PRINCIPAL DISCHARGE DIAGNOSES: 1. Chronic obstructive pulmonary disease exacerbation. 2. Community acquired pneumonia. 3. Non-ST segment elevation myocardial infarction. 4. Atrial fibrillation. SECONDARY DIAGNOSES: 1. Chronic obstructive pulmonary disease. 2. Hypertension. 3. Hyperlipidemia. STUDIES DONE DURING HOSPITALIZATION: Chest x-ray, impression: Chest x-ray findings compatible with chronic interstitial lung disease with potential overlying infiltrate at the right lung base. Transthoracic echocardiogram, conclusion: Left ventricular wall motion contractility within normal limits. The estimated ejection fraction is 50% to 55%. The right ventricular global systolic function is normal. All valves show good function. There is trace aortic and mitral regurgitation. No prior echo to compare. DISCHARGE MEDICATION REGIMEN: 1. Eliquis 5 mg by mouth 2 times daily. 2. Azithromycin 500 mg by mouth daily. 3. Cefpodoxime 200 mg by mouth every 12 hours. 4. Metoprolol succinate 12.5 mg by mouth daily. 5. Prednisone 60 mg daily, taper as instructed. 6. Amlodipine 10 mg by mouth daily. 7. Singulair 10 mg by mouth daily. 8. Spiriva 1 capsule inhaled daily. 9. Ibuprofen 2 tablets by mouth every 6 hours as needed for pain. 10. Symbicort 2 puffs inhaled 2 times daily. 11. Albuterol sulfate 2 puffs inhaled every 4 hours as needed for any shortness of breath or wheezing. HISTORY OF PRESENT ILLNESS AND HOSPITAL SUMMARY: Please see the full history and physical by Dr. Caio Smith for full details. Briefly, Mr. Celis is a 70- year-old male with a past medical history as above who has presented with increasing shortness of breath and respiratory symptoms over the past week or so. Despite outpatient antibiotics and prednisone, his symptoms persisted. In the hospital, he was found to be in atrial fibrillation, which is new for him with tachycardia and some mild ST depression in the lateral leads. The patient was started on rate controlling agent, anticoagulation, was also treated with IV antibiotics and IV steroids. Over the following day, he had significant improvement in his symptoms. The patient did have an elevated troponin of 0.16 on admission; however, this jumped significantly and peaked at 2. He had an echocardiogram done as above, which was relatively unremarkable. He was seen by Dr. Gonzalez of Cardiology who recommended to continue beta- blockade as he seemed to be tolerating this well. She also recommended oral anticoagulation due to his Afib. He was started on Eliquis. He should also have a stress test done as an outpatient once his respiratory symptoms have resolved. The patient was able to be weaned off oxygen and felt well on day of discharge. He will be sent home to complete antibiotic therapy and prolonged steroid taper. Follow up with his PCP as an outpatient and should be referred for cardiac stress test. TIME SPENT: Total time spent on this discharge, 45 minutes. This is a summary of the hospitalization. Please see the full medical record for further details. CC: Jelly Garcia MD* [id number]/[facility] #: [id number]
== END 2016-11-06 11:50 | disposition home or self-care (01) | DRG 190 ==
LOC: ED 20:10 → MEDTELE 23:07
PROVIDERS: ADMIT Hospitalist; ATTEND Hospitalist
DX: J44.0 Chronic obstructive pulmonary disease with (acute) lower respiratory infection (principal); J18.1 Lobar pneumonia, unspecified organism; I21.4 Non-ST elevation (NSTEMI) myocardial infarction; I48.91 Unspecified atrial fibrillation; I10 Essential (primary) hypertension; J45.909 Unspecified asthma, uncomplicated; I25.10 Atherosclerotic heart disease of native coronary artery without angina pectoris; E78.5 Hyperlipidemia, unspecified; J44.1 Chronic obstructive pulmonary disease with (acute) exacerbation; R79.89 Other specified abnormal findings of blood chemistry; I08.0 Rheumatic disorders of both mitral and aortic valves; Z88.8 Allergy status to other drugs, medicaments and biological substances; Z90.79 Acquired absence of other genital organ(s); Z82.49 Family history of ischemic heart disease and other diseases of the circulatory system; Z87.891 Personal history of nicotine dependence; Z85.46 Personal history of malignant neoplasm of prostate; Z82.3 Family history of stroke; Z79.01 Long term (current) use of anticoagulants
CPT/HCPCS: 36415; 71010; 80048; 80053; 81003; 81015; 82550; 82553; 83605; 83690; 83880; 84443; 84484; 85025; 85610; 85730; 86140; 87040; 87070; 87077; 87107; 87186; 87205; 87502; 87899; 93005; 93306; 94640; 94760; 96374; 96375; 99284; A9270-GY; J0696; J1644; J2920; J2930

== ENCOUNTER 2016-11-19 11:49 | Emergency (ER) | payer MEDICARE ==
--- NOTE | 2016-11-19 12:10 | ED ---
Shortness of Breath - HPI Summary HPI Summary: Patient is a 71 y/o male here c/o SOB and productive cough with yellow phlegm. She reports that at the end of October he was admitted to the hospital with the diagnosis of Pneumonia. He was discharge in Azithromycin and Cephalexin. He was feeling better until last Thursday when he started to have the above symptoms. He was started on Prednisone and Augmenting by his centerless grinder. He has been taking the medications for the last 7 days and his symptoms did not improving therefore he decide to come to to the ED for further w/u and management. He reports that he SOB only by walking short distances. Denies any CP, palpitations, nausea vomiting diarrhea or constipation. Denies any fever positive chills. - History of Current Complaint Time Seen by Provider: 11/19/16 11:59 Hx Obtained From: Patient Onset/Duration: Gradual Onset, Lasting Days Current Severity: Moderate Dyspnea At: Exertion Aggrevating Factors: Movement Alleviating Factors: Bronchodilators Associated Signs & Symptoms: Cough (Productive), Chills, Nasal Congestion - Risk Factors Pulmonary Embolism: Negative Cardiac: Negative Pseudomonas: Negative Tuberculosis: Negative - Allergy/Home Medications Allergies/Adverse Reactions: Allergies Allergy/AdvReac Type Severity Reaction Status Date / Time Simvastatin Allergy See Comment Verified 11/03/16 07:13 Atorvastatin [From Lipitor] AdvReac Unknown Verified 11/03/16 07:13 Reaction Details Home Medications: Home Medications Amoxicillin/Clavulanate TAB* [Augmentin TAB 875*] 1 tab PO BID 11/19/16 [ History Confirmed 11/19/16] predniSONE TAB* [Deltasone TAB*] 20 mg BID 11/19/16 [History Confirmed 11/19/16] PMH/Surg Hx/FS Hx/Imm Hx Endocrine/Hematology History: Denies: Hx Diabetes, Hx Thyroid Disease Cardiovascular History: Reports: Hx Hypertension Denies: Hx Pacemaker/ICD Respiratory History: Reports: Hx Asthma, Hx Chronic Obstructive Pulmonary Disease (COPD), Other Respiratory Problems/Disorders - COPD GI History: Denies: Hx Ulcer Sensory History: Reports: Hx Contacts or Glasses Denies: Hx Hearing Aid, Hx Hearing Problem Opthamlomology History: Reports: Hx Contacts or Glasses Psychiatric History: Denies: Hx Panic Disorder - Cancer History Cancer Type, 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 - Surgical History Surgery Procedure, Year, and Place: PROSTATECTOMY,Tonsilectomy Infectious Disease History: Denies: Hx Clostridium Difficile, Hx Hepatitis, Hx Human Immunodeficiency Virus (HIV), Hx of Known/Suspected MRSA, Hx Shingles, Hx Tuberculosis, Hx Known/ Suspected VRE, Hx Known/Suspected VRSA, History Other Infectious Disease - Family History Known Family History: Positive: Hypertension - Social History Alcohol Use: None Substance Use Type: Reports: None Hx Tobacco Use: No Smoking Status (MU): Former Smoker Type: Cigarettes Amount Used/How Often: 30 +years Review of Systems Positive: Chills, Fatigue Eyes: Negative ENT: Negative Cardiovascular: Negative Positive: Shortness Of Breath, Cough Gastrointestinal: Negative Genitourinary: Negative Musculoskeletal: Negative Skin: Negative Neurological: Negative Psychological: Normal All Other Systems Reviewed And Are Negative: Yes Physical Exam - Summary Physical Exam Summary: VITAL SIGNS: Reviewed. GENERAL: Patient is a well developed and nourished male with no acute distress. . He is able to speak in full sentences. HEAD AND FACE: Normocephalic and atraumatic. EYES: PERRLA, EOMI x 2, No injected conjunctiva. EARS: Hearing grossly intact. Ear canals and tympanic membranes WNL MOUTH: Dry oral mucosa. NECK: Supple, trachea is midline, no adenopathy, no JVD, no carotid bruit. CHEST: Symmetric, No intercostal or abdominal retraction, LUNGS: Decrease breath sounds, Coarse breath sounds bilateral. CVS: RRR,, S1 and S2 present, no murmurs or gallops appreciated. ABDOMEN: Soft, non-tender. No signs of distention. Positive BS. No rebound, no guarding, and no masses palpated. EXTREMITIES: FROM in all major joints, no edema, no cyanosis or clubbing. NEURO: Alert and oriented x 3. No acute neurological deficits. Speech is normal and follows commands. SKIN: Dry and warm Triage Information Reviewed: Yes Vital Signs Reviewed: Yes Diagnostics - Laboratory Lab Statement: Any lab studies that have been ordered have been reviewed, and results considered in the medical decision making process. - Radiology CXR Xray Interpretation: Positive (See Comments) - IMPRESSION: MILD CHRONIC LUNG FINDINGS WITH HYPERINFLATION. Radiology Interpretation Completed By: Radiologist Course/Dx - Course Assessment/Plan: Patient is a 71 y/o male here c/o SOB and productive cough with yellow phlegm. She reports that at the end of October he was admitted to the hospital with the diagnosis of Pneumonia. He was discharge in Azithromycin and Cephalexin. He was feeling better until last Thursday when he started to have the above symptoms. He was started on Prednisone and Augmenting by his centerless grinder. He has been taking the medications for the last 7 days and his symptoms did not improving therefore he decide to come to to the ED for further w/u and management. He reports that he SOB only by walking short distances. Denies any CP, palpitations, nausea vomiting diarrhea or constipation. Denies any fever positive chills. CXR IMPRESSION: MILD CHRONIC LUNG FINDINGS WITH HYPERINFLATION. There is no signs of Pneumonia. It seems that patient is having a COPD exacerbation. With minimal movement he becomes more tachypneic, hypoxic, and tachycardic. I believe PE should also be also ruled out. Patient reports that his will be taking patient to the hospital. He refuses ambulance transport. He signed AMA fo the ambulance transport. - Diagnoses Differential Diagnosis/HQI/PQRI: Positive: Asthma, Bronchitis, COPD Exacerbation , Pneumonia, Pulmonary Embolism, Pulmonary Edema Provider Diagnoses: COPD exacerbation Discharge - Discharge Plan Condition: Guarded Disposition: [facility] Patient Education Materials: COPD (Chronic Obstructive Pulmonary Disease) (ED) Referrals: Jelly Callahan MD [Primary Care Provider] -
--- NOTE | 2016-11-19 12:22 | RAD ---
INDICATION: Productive cough. Short of breath COMPARISON: August 26, 2017 TECHNIQUE: PA and lateral dual-energy views were obtained. FINDINGS: Bones/Soft Tissues: There are no acute bony findings. Cardiomediastinal: The cardiomediastinal silhouette is normal. Lungs: There are no infiltrates. There is mild chronic interstitial change right greater than left. The findings are stable. There is hyperinflation. Pleura: There are no pleural effusions. Other: None IMPRESSION: MILD CHRONIC LUNG FINDINGS WITH HYPERINFLATION.
[2016-11-19 12:29] VITALS: BP 158/82
== END 2016-11-19 12:45 | disposition short-term general hospital (02) ==
LOC: UCEAST 11:49
DX: J44.1 Chronic obstructive pulmonary disease with (acute) exacerbation (principal); Z88.8 Allergy status to other drugs, medicaments and biological substances; Z87.891 Personal history of nicotine dependence
CPT/HCPCS: 71020; 99212; G0463

== ENCOUNTER 2016-11-19 13:35 | Inpatient (IN) | payer MEDICARE ==
[2016-11-19] MEDS ORDERED: NS 0.9% 1000 ML* 1,000 ML IV ONE (14:04)
[2016-11-19] MEDS ORDERED: methylPREDNISolone SOD SUCC* 125 MG 2 ML VIAL IV ONE (14:07)
[2016-11-19] MEDS ORDERED: Albuterol/Ipratropium NEB.SOL* Albuterol 2.5 MG/Ipratropium 0.5 MG 3 ML INH ONE ×2 (14:07→16:20)
[2016-11-19 15:15] LABS: Add Diff/Slide Review? Slide Review Added; Comments Flag Yes; Hematocrit 44 % (42-52); Hemoglobin 14.9 g/dl (14.0-18.0); Mean Corpuscular HGB Conc 34 g/dl (31-36); Mean Corpuscular Hemoglobin 31 pg (27-31); Mean Corpuscular Volume 92 fL (80-94); Mean Platelet Volume 8 um3 (7.4-10.4); Red Cell Distribution Width 15 % (10.5-15); White Blood Count 22.2 10^3/ul (3.5-10.8)
[2016-11-19 15:28] LABS: Albumin 3.6 g/dL (3.2-5.2); BUN/Creatinine Ratio 27.6 (8-20); C Reactive Protein 81.59 mg/L (< 5.00); Calcium 9.1 mg/dL (8.6-10.3); EGFR African American 178.1 (>60); EGFR Non-African American 138.5 (>60); Potassium 3.6 mmol/L (3.5-5.0); Total Bilirubin 0.9 mg/dL (0.2-1.0); Total Protein 6.6 g/dL (6.4-8.9)
[2016-11-19 15:34] LABS: Troponin I 0.04 ng/mL (<0.04)
[2016-11-19] MEDS ORDERED: Levofloxacin 750 MG IVPREMIX(* 750 MG/150 ML BAG IVPB ONE (16:20)
[2016-11-19] MEDS ORDERED: Albuterol 2.5 MG/3 ML NEB.SOL* (0.083%) INH PRN (16:54)
[2016-11-19] MEDS ORDERED: Ondansetron INJ* 2 MG/ML VIAL IV PRN (16:54)
[2016-11-19] MEDS ORDERED: Acetaminophen TAB* 325 MG PO PRN (16:54)
[2016-11-19] MEDS ORDERED: Azithromycin IV(*) 500 MG in NS 0.9% 250 ML* 250 ML IVPB SCH (17:00)
[2016-11-19] MEDS ORDERED: Cefepime(*) 2 GM in NS 0.9% 50 ML* 50 ML IVPB SCH (17:00)
[2016-11-19] MEDS ORDERED: Iohexol 300* (CONTRAST) 10 ML SDV IV ONE (17:04)
[2016-11-19 17:33] LABS: Urine Bilirubin Negative (Negative); Urine Glucose Negative (Negative); Urine Nitrite Negative (Negative)
[2016-11-19] MEDS ORDERED: Vancomycin per Pharmacy* NOTE FOLLOW UP PRN (17:34)
[2016-11-19] MEDS: Albuterol/Ipratropium NEB.SOL* Albuterol 2.5 MG/Ipratropium 0.5 MG 3 ML INH SCH ×2 (17:49→20:24)
--- NOTE | 2016-11-19 17:54 | RAD ---
INDICATION: Recurrent pulmonary infections, history of COPD. COMPARISON: Comparison is made with a prior chest x-ray study from November 19, 2016. Correlation is also made with a prior CT of the chest from June 19, 2015. TECHNIQUE: A CT scan of the chest was performed with intravenous contrast following intravenous injection of 80 ml of Omnipaque 300 nonionic contrast. Contiguous axial sections were obtained from the lung apices through the lung bases. Images were reconstructed in the coronal and sagittal planes. FINDINGS: The lungs are hyperinflated with moderate emphysematous change which is most prominent in the upper lobes. There are patchy infiltrates present within the right middle lobe and both lower lobes most consistent with pneumonia. No pleural effusion is seen. No significant enlarged mediastinal or hilar lymph nodes are seen. The heart is within normal limits in size. No pericardial effusion is present. The thoracic aorta is normal in caliber and demonstrates homogeneous contrast opacification. There is mild to moderate calcific plaque present. The upper abdomen is visualized on this study. No acute findings are seen. There are [id number] chronic compression fractures of mid and lower dorsal vertebral bodies. IMPRESSION: 1. THERE ARE PATCHY INFILTRATES PRESENT WITHIN THE RIGHT MIDDLE AND BOTH LOWER LOBES MOST CONSISTENT WITH PNEUMONIA. 2. COPD. 3. CHRONIC COMPRESSION FRACTURES OF DORSAL VERTEBRAL BODIES.
[2016-11-19] MEDS ORDERED: Piperac/Tazob 3.375 gm in NS* 3.375 GM/100 ML BAG IVPB ONE (18:00)
[2016-11-19] MEDS ORDERED: Vancomycin(*) 1,250 MG in NS 0.9% 250 ML* 250 ML IVPB ONE (18:30)
[2016-11-19] MEDS: methylPREDNISolone SOD SUCC* 125 MG 2 ML VIAL IV SCH (18:42)
[2016-11-19] MEDS: Diltiazem TAB* 30 MG PO SCH (18:42)
[2016-11-19] MEDS: Mometasone/Formoter 200/5 MDI INH SCH (20:15)
[2016-11-19] MEDS: Apixaban* 5 MG TAB PO SCH (20:20)
--- NOTE | 2016-11-19 20:41 | ED ---
Silvia Mckeon Erika, scribed for Peewee Garenr MD on 11/19/16 at 1441 . Shortness of Breath - HPI Summary HPI Summary: Patient is a 71-year-old male presenting to the ED with a CC of SOB. Patient was admitted to [facility] for pneumonia on 11/04/2016, and was discharged on 11/06. Patient was given zithromax and cefpodoxime which he stopped taking a few days after discharge. Patient started to develop SOB on 11/15. Patient was prescribed augmentin and prednisone by his doctor, and improved temporarily. Yesterday, patient developed worse SOB again. Today, SOB has worsened - pt notes SOB with any movement. Pt states breathing is okay when still. He last took augmentin and prednisone at 03:00 today. He does note chills this morning, but no fever. Patient was sent to the ED from [facility] where he had a CXR, but was not given any medication. Pt was afebrile but tachycardic at [facility]. - History of Current Complaint Chief Complaint: EDShortnessOfBreath Hx Obtained From: Patient, Medical Records Onset/Duration: Gradual Onset, Lasting Days, Worse Since - today Timing: Constant Current Severity: Moderate Dyspnea At: Exertion Aggrevating Factors: Movement Associated Signs & Symptoms: Chills - Allergy/Home Medications Allergies/Adverse Reactions: Allergies Allergy/AdvReac Type Severity Reaction Status Date / Time Simvastatin Allergy See Comment Verified 11/03/16 07:13 Atorvastatin [From Lipitor] AdvReac Unknown Verified 11/03/16 07:13 Reaction Details PMH/Surg Hx/FS Hx/Imm Hx Endocrine/Hematology History: Denies: Hx Diabetes, Hx Thyroid Disease Cardiovascular History: Reports: Hx Hypertension Denies: Hx Pacemaker/ICD Respiratory History: Reports: Hx Asthma, Hx Chronic Obstructive Pulmonary Disease (COPD), Other Respiratory Problems/Disorders - COPD GI History: Denies: Hx Ulcer Sensory History: Reports: Hx Contacts or Glasses Denies: Hx Hearing Aid, Hx Hearing Problem Opthamlomology History: Reports: Hx Contacts or Glasses Psychiatric History: Denies: Hx Panic Disorder - Cancer History Cancer Type, 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 - Surgical History Surgery Procedure, Year, and Place: PROSTATECTOMY,Tonsilectomy Infectious Disease History: No Infectious Disease History: Denies: Hx Clostridium Difficile, Hx Hepatitis, Hx Human Immunodeficiency Virus (HIV), Hx of Known/Suspected MRSA, Hx Shingles, Hx Tuberculosis, Hx Known/ Suspected VRE, Hx Known/Suspected VRSA, History Other Infectious Disease, Traveled Outside the [place] in Last 30 Days - Family History Known Family History: Positive: Hypertension - Social History Alcohol Use: None Substance Use Type: Reports: None Hx Tobacco Use: No Smoking Status (MU): Former Smoker Type: Cigarettes Amount Used/How Often: 30 +years Review of Systems Positive: Chills. Negative: Fever Positive: Shortness Of Breath All Other Systems Reviewed And Are Negative: Yes Physical Exam Triage Information Reviewed: Yes Vital Signs On Initial Exam: Initial Vitals Temp Pulse Resp BP Pulse Ox 98.0 F 105 28 164/83 92 11/19/16 13:37 11/19/16 13:37 11/19/16 13:37 11/19/16 13:37 11/19/16 13:37 Vital Signs Reviewed: Yes Appearance: Positive: Well-Appearing, No Pain Distress, Well-Nourished Skin: Positive: Warm, Skin Color Reflects Adequate Perfusion, Dry Head/Face: Positive: Normal Head/Face Inspection Eyes: Positive: Normal ENT: Positive: Normal ENT inspection Neck: Positive: Supple, Nontender Respiratory/Lung Sounds: Positive: Clear to Auscultation, Decreased Breath Sounds - very decreased breath sounds in all lung jules Cardiovascular: Positive: Tachycardia Abdomen Description: Positive: Nontender, Soft Bowel Sounds: Positive: Present Musculoskeletal: Positive: Normal Neurological: Positive: Normal Psychiatric: Positive: Affect/Mood Appropriate Diagnostics - Vital Signs Vital Signs Temp Pulse Resp BP Pulse Ox 11/19/16 13:37 98.0 F 105 28 164/83 92 - Laboratory Lab Results: Lab Results 11/19/16 11/19/16 11/19/16 Range/Units 15:00 15:00 15:00 WBC 22.2 H (3.5-10.8) 10^3/ul RBC 4.80 (4.0-5.4) 10^6/ul Hgb 14.9 (14.0-18.0) g/dl Hct 44 (42-52) % MCV 92 (80-94) fL MCH 31 (27-31) pg MCHC 34 (31-36) g/dl RDW 15 (10.5-15) % Plt Count 201 (150-450) 10^3/ul MPV 8 (7.4-10.4) um3 Neut % (Auto) 88.9 H (38-83) % Lymph % (Auto) 3.6 L (25-47) % Warren % (Auto) 6.4 (1-9) % Eos % (Auto) 0 (0-6) % Baso % (Auto) 1.1 (0-2) % Absolute Neuts (auto) 19.7 H (1.5-7.7) 10^3/ul Absolute Lymphs (auto) 0.8 L (1.0-4.8) 10^3/ul Absolute Monos (auto) 1.4 H (0-0.8) 10^3/ul Absolute Eos (auto) 0 (0-0.6) 10^3/ul Absolute Basos (auto) 0.3 H (0-0.2) 10^3/ul Absolute Nucleated RBC 0 10^3/ul Nucleated RBC % 0 Sodium 135 (133-145) mmol/L Potassium 3.6 (3.5-5.0) mmol/L Chloride 100 L (101-111) mmol/L Carbon Dioxide 31 (22-32) mmol/L Anion Gap 4 (2-11) mmol/L BUN 16 (6-24) mg/dL Creatinine 0.58 L (0.67-1.17) mg/dL Est GFR ( Amer) 178.1 (>60) Est GFR (Non-Af Amer) 138.5 (>60) BUN/Creatinine Ratio 27.6 H (8-20) Glucose 144 H (70-100) mg/dL Lactic Acid 1.9 (0.5-2.0) mmol/L Calcium 9.1 (8.6-10.3) mg/dL Total Bilirubin 0.90 (0.2-1.0) mg/dL AST 13 (13-39) U/L ALT 27 (7-52) U/L Alkaline Phosphatase 41 (34-104) U/L Troponin I 0.04 H* (<0.04) ng/mL C-Reactive Protein 81.59 H (< 5.00) mg/L Total Protein 6.6 (6.4-8.9) g/dL Albumin 3.6 (3.2-5.2) g/dL Globulin 3.0 (2-4) g/dL Albumin/Globulin Ratio 1.2 (1-3) Result Diagrams: 11/19/16 15:00 11/19/16 15:00 Lab Statement: Any lab studies that have been ordered have been reviewed, and results considered in the medical decision making process. - EKG 14:06 Cardiac Rate: Tachycardia - at 105 bpm EKG Rhythm: Sinus Tachycardia Ectopy: PVCs, PACs Re-Evaluation - Re-Evaluation First Eval Re-Evaluation Time: 15:59 Comment: Will ambulate to the rest room and see if pt has increased SOB - pt was not able to walk to the rest room. He walked 3 steps and could not go further, O2 sat dropped to 85. Course/Dx - Course Course Of Treatment: Mr. Vargas presented after a recent bout of pneumonia with a COPD exacerbation. He was treated here in the ED but got very little improvement. - Diagnoses Provider Diagnoses: Pneumonia, COPD exacerbation - Physician Notifications Discussed Care of Patient With: Dr. Acosta (hospitalist) at 16:22 - agrees to admit - Critical Care Time Critical Care Time: 30-74 min Discharge - Discharge Plan Condition: Stable Disposition: ADMITTED TO [facility] The documentation as recorded by the Silvia davis Erika accurately reflects the service I personally performed and the decisions made by me, Peewee Garner MD.
--- NOTE | 2016-11-19 21:13 | HP ---
HISTORY AND PHYSICAL: DATE OF ADMISSION: 11/19/16 ADDENDUM: Mr. Omid Celis is a 71-year-old male with history of COPD who presents with COPD exacerbation. The patient is going to be admitted to the hospital. For further details of the patient's presentation and plan, please see history and physical dictated by Derek Garnica NP, on 11/19/16, with which I agree. [id number]/[facility] #: [id number] MTDD
--- NOTE | 2016-11-19 21:55 | HP ---
ATTENDING PHYSICIAN ADDENDUM NOW INCLUDED ON THIS REPORT HISTORY AND PHYSICAL: DATE OF ADMISSION: 11/19/16 PRIMARY CARE PROVIDER: Dr. Jelly Garcia. ATTENDING PHYSICIAN WHILE IN THE HOSPITAL: Dr. Kathy Acosta *(report dictated by Derek Garnica NP) CHIEF COMPLAINT: 1. Cough. 2. Shortness of breath. HISTORY OF PRESENT ILLNESS: Mr. Celis is a 71-year-old male patient who comes into the ER today with complaints of cough, shortness of breath that is getting progressively worse over the last couple of days. He said over the weekend, he noticed that he was coughing up stuff and he was feeling congested. He was not feeling well. He is feeling short of breath. He called his primary, started on Augmentin, also started on some prednisone. He said initially it worked for the first couple of days; however, on Thursday and Thursday , he got progressively more short of breath. He is having chills. He is not feeling well. He could barely get up and walk anywhere, minimal exertion made him short of breath, so he decided to come back again to the hospital today. He denied any chest pain, no nausea, no vomiting, no dysuria, no frequency. He says he has been having no diarrhea. He has been trying his nebulizers, they help for a little while but just things were not going the right way, so he decided to come into the ER. PAST MEDICAL HISTORY: Significant for: 1. COPD. 2. Hypertension. 3. Hyperlipidemia. 4. AFib. 5. Prostate cancer. PAST SURGICAL HISTORY: He has had: 1. Prostatectomy. 2. Tonsillectomy. MEDICATIONS: Home meds according to the patient they have not changed from discharge. They are: 1. Eliquis 5 mg p.o. twice a day. 2. He has stopped azithromycin 500 mg daily. 3. Metoprolol 12.5 mg daily. 4. Prednisone 60 mg taper. He is currently on 40 mg. 5. Amlodipine 10 mg daily. He did stop this medication. 6. Singulair 10 mg p.o. daily. 7. Spiriva 1 capsule inhaled daily. 8. Ibuprofen 2 tablets by mouth every 6 hours as needed for pain. 9. Symbicort 2 puffs inhaled twice a day. 10. Albuterol 2 puffs inhaled every 4 hours as needed for shortness of breath. ALLERGIES TO MEDICATIONS: Include SIMVASTATIN, LIPITOR. FAMILY HISTORY: Mother had a history of dying in her sleep. Father had a history of CVA. SOCIAL HISTORY: He is a former smoker. He does not drink alcohol. He lives with his . Surrogate decision maker is his . REVIEW OF SYSTEMS: There is no documented fever. He does admit to having chills. No significant weight change. There was no double vision. There is no ear discharge. No rhinorrhea. No sore throat. No thyroid enlargement. He denies having any chest pain. There is dyspnea on exertion. There is no shortness of breath at rest. No orthopnea, no nocturnal dyspnea. There is no abdominal pain. No nausea, no vomiting. No dysuria, no frequency. No loss of consciousness. No pruritus and no skin ulcerations. Review of 14 systems completed, all others were negative. PHYSICAL EXAMINATION VITAL SIGNS: Reveal blood pressure 161/82 with a pulse of 87, respirations 28, O2 sat 94%, temperature 99.1. His respiration now sitting after treatment in the ED is around 20. HEENT: Head: Atraumatic, normocephalic. Eyes: Sclerae are anicteric and not pale. Throat: Oral mucosa appears to be moist. No oropharyngeal erythema. NECK: Supple. LUNGS: Diminished in the bases. Crackles in the right base. No wheezes were heard, they were diminished. HEART: Sounds S1, S2. Regular rate and rhythm. No murmurs, rubs, or gallops. ABDOMEN: Soft, flat, nontender. Bowel sounds present. EXTREMITIES: Pulses were 2+ throughout. He is able to move all 4 extremities with 5/5 strength. NEUROLOGIC: The patient is awake, he is alert, and he is oriented x3. Tongue midline. Anodic Operator were equal. He had no gross focal deficits. SKIN: Intact. DIAGNOSTIC STUDIES/LAB DATA: Labs today revealed WBC of 22.2, RBC of 4.80, hemoglobin 14.9, hematocrit of 44, platelet count 201. Sodium is 135, potassium is 3.6, chloride 100, bicarb 21, BUN 16, creatinine 0.58, glucose 144 , lactate 1.9, calcium 9.1. Total bili 0.9, AST 13, ALT 27, alk phos 41. Troponin 0.04 which is down from 2 when he first came in. Albumin of 3.6. He had a chest x-ray obtained today which showed mild chronic lung findings with hyperinflation. I do see a slight infiltrate on the right base, but this appears to be improved from previous x-rays. He had an EKG obtained today as well which showed a sinus tachycardia with PVCs and PACs, flat T wave in V1, no ST elevations, T-wave inversions noted. Compared to the previous EKG appears to be similar. He had an echo when he was here just 2 weeks ago. It shows an EF of 55% to 50% . Old medical records were reviewed. ASSESSMENT AND PLAN: Mr. Vargas is a 71-year-old male patient coming into the ER today with complaints of cough, shortness of breath that has been getting worse over the last couple of days despite Augmentin and prednisone. He was evaluated in the ER. Hospitalist service was asked to admit. He will be admitted under inpatient status for: 1. Chronic obstructive pulmonary disease exacerbation secondary to probable pneumonia. At this point, he says that over the last 6 weeks, he has had recurrent infections despite antibiotic therapy. His last microbiology, he did grew out achromobacter, which is a fairly resistant bacteria, it is susceptible to Zosyn. So, I am going to go ahead and start him on Zosyn and vanco because he was just in the hospital and make sure we cover him for HAP. In addition to this, azithromycin. We will get a CT of the chest and I am also going to go ahead and get blood cultures, we will do a sputum culture, legionella and Strep pneumo antigens, and we will swab him for flu again. In addition to this, we will put him on nebs around the clock, steroids, and Dulera, and we will encourage aggressive pulmonary toileting and I again did consult Dr. Israel. 2. Hypertension. Continue meds as prescribed. 3. Hyperlipidemia. Continue meds as prescribed. 4. History of prostate cancer. Follow with primary. 5. Atrial fibrillation. Continue with Eliquis for the time being. 6. DVT prophylaxis. He will be on Eliquis. 7. Code status. Full code. 8. Fluids, electrolytes, nutrition. He can have a regular diet. TIME SPENT: On the admission was 60 minutes, greater than half the time was spent [id number] with the patient obtaining my history and physical, and the other half of the time was spent going over the plan of care with patient and implementing plan of care. I did discuss the plan of care with my attending, Dr. Acosta, she is in agreement. DEREK GARNICA NP DATE OF ADMISSION: 11/19/16 ADDENDUM: Mr. Omid Celis is a 71-year-old male with history of COPD who presents with COPD exacerbation. The patient is going to be admitted to the hospital. For further details of the patient's presentation and plan, please see history and physical dictated by Derek Garnica NP, on 11/19/16, with which I agree. KATHY ACOSTA MD CC: Dr. Jelly Garcai; Dr. Israel* [id number] #: [id number] #: [id number] MTDMainor
[2016-11-19] MEDS ORDERED: Heparin VIAL(*) 5000 UNITS/ML VIAL (FIVE THOUSAND) SUBCUT SCH (22:00)
[2016-11-19] MEDS: Azithromycin IV(*) 500 MG in NS 0.9% 250 ML* 250 ML IVPB SCH (22:11)
[2016-11-19] MEDS: Piperac/Tazob 3.375 gm in NS* 3.375 GM/100 ML BAG IVPB SCH (23:54)
[2016-11-20] MEDS: Diltiazem TAB* 30 MG PO SCH ×4 (00:05→17:43)
[2016-11-20] MEDS: Albuterol/Ipratropium NEB.SOL* Albuterol 2.5 MG/Ipratropium 0.5 MG 3 ML INH SCH ×6 (01:08→20:20)
[2016-11-20] MEDS: Vancomycin(*) 1,000 MG in NS 0.9% 250 ML* 250 ML IVPB SCH ×3 (02:17→18:32)
[2016-11-20] MEDS: methylPREDNISolone SOD SUCC* 125 MG 2 ML VIAL IV SCH (05:47)
[2016-11-20] MEDS: Piperac/Tazob 3.375 gm in NS* 3.375 GM/100 ML BAG IVPB SCH ×4 (05:53→21:53)
[2016-11-20 05:57] LABS: Add Diff/Slide Review? Slide Review Added; Comments Flag Yes; Hematocrit 42 % (42-52); Hemoglobin 13.9 g/dl (14.0-18.0); Mean Corpuscular HGB Conc 33 g/dl (31-36); Mean Corpuscular Hemoglobin 31 pg (27-31); Mean Corpuscular Volume 92 fL (80-94); Mean Platelet Volume 8 um3 (7.4-10.4); Red Blood Count 4.54 10^6/ul (4.0-5.4); Red Cell Distribution Width 14 % (10.5-15); White Blood Count 19.7 10^3/ul (3.5-10.8)
[2016-11-20 06:17] LABS: BUN/Creatinine Ratio 22.1 (8-20); Calcium 8.7 mg/dL (8.6-10.3); EGFR African American 148.3 (>60); EGFR Non-African American 115.3 (>60); Potassium 4.4 mmol/L (3.5-5.0)
[2016-11-20] MEDS: Mometasone/Formoter 200/5 MDI INH SCH ×2 (08:32→20:19)
[2016-11-20] MEDS: Montelukast Sodium TAB* 10 MG PO SCH (09:20)
[2016-11-20] MEDS: Metoprolol Succinate XL TAB* 25 MG PO SCH (09:20)
[2016-11-20] MEDS: Apixaban* 5 MG TAB PO SCH ×2 (09:21→21:52)
--- NOTE | 2016-11-20 13:58 | CONS ---
PULMONARY CONSULTATION REPORT: DATE OF CONSULTATION: 11/20/16 CONSULTATION REQUESTED BY: Derek Garnica NP. REASON FOR CONSULTATION: Evaluation of shortness of breath, recurrent pneumonia. HISTORY OF PRESENT ILLNESS: The patient is a 71-year-old pleasant male with history of COPD and history of recurrent bronchitis every winter. The patient started having recurrent episodes of cough and shortness of breath since July. He was treated with outpatient Augmentin. Symptoms would improve with antibiotic and prednisone and would trigger again after he is done with the course. Symptoms were progressively worsening over the past few days with significant shortness of breath, chills, low-grade fevers. The patient decided to come into the ED for further evaluation. The patient had sputum cultures recently, which grew Achromobacter resistant to multiple antibiotics. The patient was also noted to have elevated white counts. The patient was also noted to have mildly elevated troponins. Influenza A and B are negative. The patient had CT scan of the chest, which was personally reviewed by me. The patient noted to have patchy airspace opacities in the right middle lobe and lingular area. The patient also noted to have dense opacities in lower lobe. The patient also noted to have emphysematous changes more prominent in the upper lobes. No significant mediastinal or hilar adenopathy noted. The patient is currently being treated with vancomycin, Zosyn and with Zithromax for community-acquired pneumonia. The patient reports improvement in shortness of breath and cough. The patient is also receiving steroids and bronchodilators. PAST MEDICAL HISTORY: 1. COPD. 2. Hypertension. 3. Hyperlipidemia. 4. AFib. 5. Prostate cancer. PAST SURGICAL HISTORY: 1. Prostatectomy. 2. Tonsillectomy. MEDICATIONS: 1. Eliquis. 2. Azithromycin. 3. Metoprolol. 4. Prednisone. 5. Amlodipine. 6. Singulair. 7. Spiriva. 8. Ibuprofen. 9. Symbicort. 10. Albuterol. ALLERGIES: SIMVASTATIN, LIPITOR. FAMILY HISTORY: History of CVA in father. SOCIAL HISTORY: Former smoker, no alcohol or drug abuse. REVIEW OF SYSTEMS: All 14 systems reviewed and as per HPI. PHYSICAL EXAMINATION: The patient sitting up in chair, in no apparent distress. Vital Signs: Temperature 98.8, pulse 75, respiratory rate 18, O2 sat 96% to 93% on room air. HEENT: Pupils equal and reactive to light, mucous membranes moist. Lungs: Good air entry bilaterally. No wheeze. Cardiovascular : S1, S2 present. Regular. Abdomen: Soft, nontender, nondistended. Bowel sounds present. Extremities: Normal range of motion. Neurologic: Alert, awake , and oriented x3. No focal deficits. DIAGNOSTIC STUDIES/LAB DATA: CT of chest as described above in HPI. Laboratory workup: WBC count 19.7, hemoglobin 13.9, hematocrit 42, platelet count 180. INR 1.16. Sodium is 134, potassium 4.4, chloride 103, bicarb 25, BUN 15, creatinine 0.68, glucose 161. Troponins 0.04, no change. CRP 81. IMPRESSION AND RECOMMENDATIONS: 71-year-old male with history of chronic obstructive pulmonary disease, a history of recurrent bronchitis with recurrent cough and sputum production, failed outpatient antibiotics, was recently admitted with similar symptoms, was found to have Achromobacter on sputum culture resistant to multiple antibiotics, sensitive to Augmentin, which he has been receiving, also sensitive to Zosyn and Bactrim. The patient currently receiving Zosyn and vancomycin. Sputum cultures were repeated. Will discontinue vancomycin and azithromycin after 3-day overlap. The patient can be discharged home on Bactrim once symptoms improve. Continue with Solu-Medrol and bronchodilators. We can start Solu-Medrol taper as he has no significant wheeze today. The patient not needing oxygen currently. Will need repeat imaging study in about 3 months to evaluate for persistence of opacities. Bronchiolitis obliterans with organizing pneumonia/cryptogenic organizing pneumonia is also in differential given recurrent pneumonias. If he continues to have persistent opacities, might need bronchoscopy. [id number]/[facility] #: [id number] [facility]
--- NOTE | 2016-11-20 14:54 | PN ---
Subjective Date of Service: 11/20/16 Interval History: Feels better. Mod amount "clear" sputum. No new c/o. Objective Active Medications: Acetaminophen (Tylenol Tab*) 650 mg PO Q4H PRN PRN Reason: FEVER/PAIN Albuterol (Ventolin 2.5 Mg/3 Ml Neb.Mariella*) 2.5 mg INH Q2H PRN PRN Reason: SOB/WHEEZING Albuterol/Ipratropium (Duoneb (Albuterol 2.5 Mg/Ipratropium 0.5 Mg)) 1 neb INH Q4H [facility] Last Admin: 11/20/16 14:17 Dose: 1 neb Apixaban (Eliquis*) 5 mg PO BID [facility] Last Admin: 11/20/16 09:21 Dose: 5 mg Diltiazem HCl (Cardizem Tab*) 30 mg PO Q6HR [facility] Last Admin: 11/20/16 13:16 Dose: 30 mg Guaifenesin (Mucinex*) 600 mg PO BID [facility] Piperacillin Sod/Tazobactam Sod (Zosyn 3.375 Gm In Ns Premix*) 3.375 gm in 100 mls @ 200 mls/hr IVPB Q6H [facility] Last Admin: 11/20/16 09:20 Dose: 200 mls/hr Azithromycin 500 mg/ Sodium (Chloride) 250 mls @ 250 mls/hr IVPB 2030 [facility] Last Admin: 11/19/16 22:11 Dose: 250 mls/hr Vancomycin HCl 1,000 mg/ (Sodium Chloride) 250 mls @ 166.667 mls/hr IVPB Q8H [facility] Last Admin: 11/20/16 10:13 Dose: 166.667 mls/hr Methylprednisolone Sodium Succinate (Solu-Medrol*) 60 mg IV Q12H [facility] Last Admin: 11/20/16 05:47 Dose: 60 mg Metoprolol Succinate (Toprol Xl Tab*) 12.5 mg PO DAILY [facility] Last Admin: 11/20/16 09:20 Dose: 12.5 mg Mometasone Furoate/Formoterol Fumar (Dulera 200/5 Mdi*) 2 puff INH BID [facility] Last Admin: 11/20/16 08:32 Dose: 2 puff Montelukast Sodium (Singulair Tab*) 10 mg PO DAILY [facility] Last Admin: 11/20/16 09:20 Dose: 10 mg Ondansetron HCl (Zofran Inj*) 4 mg IV Q6H PRN PRN Reason: NAUSEA Pharmacy Consult (Vancomycin Per Pharmacy*) 1 note FOLLOW UP . PRN PRN Reason: PER PROTOCOL Pharmacy Profile Note (Vancomycin Trough Check) 1 note FOLLOW UP 1800 ONE Stop: 11/20/16 18:01 Vital Signs 11/19/16 11/19/16 11/19/16 17:00 17:05 17:09 Temperature Pulse Rate 113 99 Respiratory Rate Blood Pressure 163/79 (mmHg) O2 Sat by Pulse 88 93 Oximetry 11/19/16 11/19/16 11/19/16 17:25 17:41 18:33 Temperature 98.8 F 98.2 F 97.8 F Pulse Rate 97 97 106 Respiratory 24 22 24 Rate Blood Pressure 172/76 172/76 156/76 (mmHg) O2 Sat by Pulse 96 95 Oximetry 11/19/16 11/19/16 11/19/16 19:44 19:45 20:24 Temperature 97.7 F Pulse Rate 48 96 92 Respiratory 17 Rate Blood Pressure 155/66 (mmHg) O2 Sat by Pulse 95 96 Oximetry 11/19/16 11/19/16 11/19/16 20:30 20:43 22:28 Temperature Pulse Rate Respiratory 20 Rate Blood Pressure 129/102 (mmHg) O2 Sat by Pulse 96 Oximetry 11/19/16 11/19/16 11/19/16 22:45 23:00 23:04 Temperature Pulse Rate 74 Respiratory Rate Blood Pressure 141/100 134/92 (mmHg) O2 Sat by Pulse 95 Oximetry 11/19/16 11/19/16 11/20/16 23:30 23:58 00:02 Temperature 97.9 F Pulse Rate 67 Respiratory 18 Rate Blood Pressure 65/51 143/61 73/58 (mmHg) O2 Sat by Pulse 94 Oximetry 11/20/16 11/20/16 11/20/16 00:30 01:59 02:00 Temperature Pulse Rate 84 Respiratory Rate Blood Pressure 143/102 170/66 (mmHg) O2 Sat by Pulse 99 Oximetry 11/20/16 11/20/16 11/20/16 02:11 03:11 03:30 Temperature Pulse Rate Respiratory Rate Blood Pressure 174/84 143/71 145/74 (mmHg) O2 Sat by Pulse Oximetry 11/20/16 11/20/16 11/20/16 03:55 05:18 07:16 Temperature 97.7 F 98.8 F Pulse Rate 67 51 Respiratory 16 16 Rate Blood Pressure 148/66 119/71 147/64 (mmHg) O2 Sat by Pulse 95 96 Oximetry 11/20/16 11/20/16 11/20/16 07:18 08:38 11:49 Temperature 99.2 F Pulse Rate 71 69 Respiratory 18 16 16 Rate Blood Pressure 145/70 (mmHg) O2 Sat by Pulse 96 92 Oximetry 11/20/16 14:21 Temperature Pulse Rate 80 Respiratory 16 Rate Blood Pressure (mmHg) O2 Sat by Pulse Oximetry Oxygen Devices in Use Now: None Appearance: Alert, sititng on the edge of his bed. In good spirits. Looks comfortable. Eyes: No Scleral Icterus Ears/Nose/Mouth/Throat: Clear Oropharnyx, Mucous Membranes Moist Neck: NL Appearance and Movements; NL JVP, No Thyroid Enlargement, Masses Respiratory: Symmetrical Chest Expansion and Respiratory Effort, Clear to Auscultation, Clear to Percussion Cardiovascular: NL Sounds; No Murmurs; No JVD, RRR, No Edema, - Extremities: No Edema, No Clubbing, Cyanosis, - Skin: No Rash or Ulcers, No Nodules or Sclerosis, - Neurological: Alert and Oriented x 3, NL Sensation Result Diagrams: 11/20/16 05:32 11/20/16 05:32 Additional Lab and Data: Lab Results 11/19/16 11/19/16 11/19/16 Range/Units 15:00 15:00 15:00 WBC 22.2 H (3.5-10.8) 10^3/ul RBC 4.80 (4.0-5.4) 10^6/ul Hgb 14.9 (14.0-18.0) g/dl Hct 44 (42-52) % MCV 92 (80-94) fL MCH 31 (27-31) pg MCHC 34 (31-36) g/dl RDW 15 (10.5-15) % Plt Count 201 (150-450) 10^3/ul MPV 8 (7.4-10.4) um3 Neut % (Auto) 88.9 H (38-83) % Lymph % (Auto) 3.6 L (25-47) % [place] % (Auto) 6.4 (1-9) % Eos % (Auto) 0 (0-6) % Baso % (Auto) 1.1 (0-2) % Absolute Neuts (auto) 19.7 H (1.5-7.7) 10^3/ul Absolute Lymphs (auto) 0.8 L (1.0-4.8) 10^3/ul Absolute Monos (auto) 1.4 H (0-0.8) 10^3/ul Absolute Eos (auto) 0 (0-0.6) 10^3/ul Absolute Basos (auto) 0.3 H (0-0.2) 10^3/ul Absolute Nucleated RBC 0 10^3/ul Nucleated RBC % 0 Sodium 135 (133-145) mmol/L Potassium 3.6 (3.5-5.0) mmol/L Chloride 100 L (101-111) mmol/L Carbon Dioxide 31 (22-32) mmol/L Anion Gap 4 (2-11) mmol/L BUN 16 (6-24) mg/dL Creatinine 0.58 L (0.67-1.17) mg/dL Est GFR ( Amer) 178.1 (>60) Est GFR (Non-Af Amer) 138.5 (>60) BUN/Creatinine Ratio 27.6 H (8-20) Glucose 144 H (70-100) mg/dL Lactic Acid 1.9 (0.5-2.0) mmol/L Calcium 9.1 (8.6-10.3) mg/dL Total Bilirubin 0.90 (0.2-1.0) mg/dL AST 13 (13-39) U/L ALT 27 (7-52) U/L Alkaline Phosphatase 41 (34-104) U/L Troponin I 0.04 H* (<0.04) ng/mL C-Reactive Protein 81.59 H (< 5.00) mg/L Total Protein 6.6 (6.4-8.9) g/dL Albumin 3.6 (3.2-5.2) g/dL Globulin 3.0 (2-4) g/dL Albumin/Globulin Ratio 1.2 (1-3) Microbiology and Other Data: Microbiology 11/19/16 20:15 Gram Stain - Final Sputum Expectorated 11/19/16 17:09 Legionella Urinary Antigen - Final Urine Negative Legionella Streptococcus pneumoniae Ag Screen - Final Negative S. pneumo Antigen 11/19/16 17:23 Influenza Types A,B Antigen (KALEB) - Final Nasopharyngeal Specimen received for Influenza A/B Molecular testing Assess/Plan/Problems-Billing Assessment: - Patient Problems (1) Pneumonia Current Visit: Yes Status: Acute Code(s): J18.9 - PNEUMONIA, UNSPECIFIED ORGANISM SNOMED Code(s): 376135722 Comment: Will cover the achromobacter that grew on 11/04. Clinically much improved. Plan discharge 11/21 on TMP-SMX. (2) Atrial fibrillation Current Visit: No Status: Acute Code(s): I48.91 - UNSPECIFIED ATRIAL FIBRILLATION SNOMED Code(s): 71917680 Comment: Continue metoprolol, apixaban. (3) COPD exacerbation Current Visit: No Status: Acute Code(s): J44.1 - CHRONIC OBSTRUCTIVE PULMONARY DISEASE W (ACUTE) EXACERBATION SNOMED Code(s): 065895205 Comment: Prednisone taper. Continue CTX/Azithro for possible CAP component.
[2016-11-20] MEDS: guaiFENesin ER TAB 600 MG PO SCH ×2 (16:35→21:52)
[2016-11-20] MEDS ORDERED: Vancomycin Trough Check NOTE FOLLOW UP ONE (18:00)
[2016-11-20] MEDS: Azithromycin IV(*) 500 MG in NS 0.9% 250 ML* 250 ML IVPB SCH (20:23)
[2016-11-21] MEDS: Diltiazem TAB* 30 MG PO SCH ×2 (00:37→05:30)
[2016-11-21] MEDS: Vancomycin(*) 1,250 MG in NS 0.9% 250 ML* 250 ML IVPB SCH ×2 (00:37→10:19)
[2016-11-21] MEDS: Albuterol/Ipratropium NEB.SOL* Albuterol 2.5 MG/Ipratropium 0.5 MG 3 ML INH SCH ×4 (02:59→08:05)
[2016-11-21] MEDS: Piperac/Tazob 3.375 gm in NS* 3.375 GM/100 ML BAG IVPB SCH (03:42)
[2016-11-21] MEDS: Mometasone/Formoter 200/5 MDI INH SCH (08:01)
[2016-11-21] MEDS ORDERED: predniSONE TAB* 50 MG PO SCH (09:00)
[2016-11-21 09:02] VITALS: BP 138/64
[2016-11-21] MEDS ORDERED: predniSONE TAB* 20 MG PO SCH (10:09)
--- NOTE | 2016-11-21 10:11 | PN ---
Progress Note - Progress Note Note: Pulm consult f/u note 11/21/16. Pt seen and examined at bedside. Pt reports feeling better. Denies any issues. Flutter valve is helping Active Medications Generic Name Dose Route Start Last Admin Trade Name Freq PRN Reason Stop Dose Admin Acetaminophen 650 mg 11/19/16 16:54 Tylenol Tab* PO Q4H PRN FEVER/PAIN Albuterol 2.5 mg 11/19/16 16:54 Ventolin 2.5 Mg/3 Ml Neb.Mariella* INH Q2H PRN SOB/WHEEZING Albuterol/Ipratropium 1 neb 11/19/16 18:00 11/21/16 08:05 Duoneb (Albuterol 2.5 Mg/Ipratropium 0.5 Mg) INH 1 neb Q4H [facility] Administration Apixaban 5 mg 11/19/16 21:00 11/20/16 21:52 Eliquis* PO 5 mg BID [facility] Administration Diltiazem HCl 30 mg 11/19/16 18:00 11/21/16 05:30 Cardizem Tab* PO Not Given Q6HR [facility] Guaifenesin 600 mg 11/20/16 15:00 11/20/16 21:52 Mucinex* PO 600 mg BID [facility] Administration Piperacillin Sod/Tazobactam Sod 3.375 gm in 100 mls @ 200 mls/hr 11/19/16 22: 00 11/21/16 03:42 Zosyn 3.375 Gm In Ns Premix* IVPB 200 mls/hr Q6H [facility] Administration Azithromycin 500 mg/ Sodium 250 mls @ 250 mls/hr 11/19/16 20:30 11/20/16 20: 23 Chloride IVPB 250 mls/hr 2030 [facility] Administration Vancomycin HCl 1,250 mg/ 250 mls @ 166.667 mls/hr 11/21/16 00:00 11/21/16 00: 37 Sodium Chloride IVPB 166.667 mls/hr Q8H [facility] Administration Metoprolol Succinate 12.5 mg 11/20/16 09:00 11/20/16 09:20 Toprol Xl Tab* PO 12.5 mg DAILY [facility] Administration Mometasone Furoate/Formoterol Fumar 2 puff 11/19/16 21:00 11/21/16 08:01 Dulera 200/5 Mdi* INH 2 puff BID [facility] Administration Montelukast Sodium 10 mg 11/20/16 09:00 11/20/16 09:20 Singulair Tab* PO 10 mg DAILY [facility] Administration Ondansetron HCl 4 mg 11/19/16 16:54 Zofran Inj* IV Q6H PRN NAUSEA Pharmacy Consult 1 note 11/19/16 17:34 Vancomycin Per Pharmacy* FOLLOW UP . PRN PER PROTOCOL Pharmacy Profile Note 1 note 11/21/16 23:30 Vancomycin Trough Check FOLLOW UP 11/21/16 23:59 2330 SHAUNA Prednisone 50 mg 11/21/16 09:00 Deltasone Tab* PO DAILY [facility] Vital Signs Temp Pulse Resp BP Pulse Ox 98.1 F 79 15 138/64 97 11/21/16 07:36 11/21/16 08:50 11/21/16 08:50 11/21/16 07:36 11/21/16 08:50 Gen: Alert, sititng on the edge of his bed. In good spirits HEENT: No Scleral Icterus, Clear Oropharnyx, Mucous Membranes Moist Neck: NL Appearance and Movements; NL JVP, No Thyroid Enlargement, Masses Respiratory: Symmetrical Chest Expansion and Respiratory Effort, Clear to Auscultation, Clear to Percussion Cardiovascular: NL Sounds; No Murmurs; No JVD, RRR, No Edema Extremities: No Edema, No Clubbing, Cyanosis Skin: No Rash or Ulcers, No Nodules or Sclerosis Neurological: Alert and Oriented x 3, NL Sensation Laboratory Results - last 24 hr 11/20/16 17:39 Vancomycin Trough 11.5 I/R: Pt is 71 y o m with h/o COPD, bronchitis with recent PNA, failed out pt abx. Pt noted to have bibasilar PNA with resistant organism. Clinically improved For d/c today Recommend 2 weeks of Bactrim Will need rpt CT chest in 2 months If infiltrates persist will need bronch and biopsy Will f/u as out pt in clinic COPD stable with no exacerbation D/w Dr Asencio
[2016-11-21] MEDS: Apixaban* 5 MG TAB PO SCH (10:18)
[2016-11-21] MEDS: Metoprolol Succinate XL TAB* 25 MG PO SCH (10:18)
[2016-11-21] MEDS: guaiFENesin ER TAB 600 MG PO SCH (10:18)
[2016-11-21] MEDS: Montelukast Sodium TAB* 10 MG PO SCH (10:18)
--- NOTE | 2016-11-21 10:19 | DCNOTE ---
Subjective Date of Service: 11/21/16 Interval History: Feeling better. Still a small amt of sputum. No new c/o, anxious to go home. Objective Active Medications: Acetaminophen (Tylenol Tab*) 650 mg PO Q4H PRN PRN Reason: FEVER/PAIN Albuterol (Ventolin 2.5 Mg/3 Ml Neb.Mariella*) 2.5 mg INH Q2H PRN PRN Reason: SOB/WHEEZING Albuterol/Ipratropium (Duoneb (Albuterol 2.5 Mg/Ipratropium 0.5 Mg)) 1 neb INH Q4H [facility] Last Admin: 11/21/16 08:05 Dose: 1 neb Apixaban (Eliquis*) 5 mg PO BID [facility] Last Admin: 11/20/16 21:52 Dose: 5 mg Diltiazem HCl (Cardizem Tab*) 30 mg PO Q6HR [facility] Last Admin: 11/21/16 05:30 Dose: Not Given Guaifenesin (Mucinex*) 600 mg PO BID [facility] Last Admin: 11/20/16 21:52 Dose: 600 mg Piperacillin Sod/Tazobactam Sod (Zosyn 3.375 Gm In Ns Premix*) 3.375 gm in 100 mls @ 200 mls/hr IVPB Q6H [facility] Last Admin: 11/21/16 03:42 Dose: 200 mls/hr Azithromycin 500 mg/ Sodium (Chloride) 250 mls @ 250 mls/hr IVPB 2030 [facility] Last Admin: 11/20/16 20:23 Dose: 250 mls/hr Vancomycin HCl 1,250 mg/ (Sodium Chloride) 250 mls @ 166.667 mls/hr IVPB Q8H [facility] Last Admin: 11/21/16 00:37 Dose: 166.667 mls/hr Metoprolol Succinate (Toprol Xl Tab*) 12.5 mg PO DAILY [facility] Last Admin: 11/20/16 09:20 Dose: 12.5 mg Mometasone Furoate/Formoterol Fumar (Dulera 200/5 Mdi*) 2 puff INH BID [facility] Last Admin: 11/21/16 08:01 Dose: 2 puff Montelukast Sodium (Singulair Tab*) 10 mg PO DAILY [facility] Last Admin: 11/20/16 09:20 Dose: 10 mg Ondansetron HCl (Zofran Inj*) 4 mg IV Q6H PRN PRN Reason: NAUSEA Pharmacy Consult (Vancomycin Per Pharmacy*) 1 note FOLLOW UP . PRN PRN Reason: PER PROTOCOL Pharmacy Profile Note (Vancomycin Trough Check) 1 note FOLLOW UP 233 [facility] Stop: 11/21/16 23:59 Prednisone (Deltasone Tab*) 40 mg PO DAILY [facility] Trimethoprim/Sulfamethoxazole (Bactrim Ds 800/160 Tab*) 1 tab PO BID [facility] Vital Signs 11/20/16 11/20/16 11/20/16 11:49 14:21 15:31 Temperature 99.2 F 97.6 F Pulse Rate 69 80 90 Respiratory 16 16 Rate Blood Pressure 145/70 155/76 (mmHg) O2 Sat by Pulse 92 89 Oximetry 11/20/16 11/20/16 11/20/16 17:25 18:11 18:15 Temperature 99.0 F Pulse Rate 50 81 84 Respiratory 16 16 16 Rate Blood Pressure 150/56 (mmHg) O2 Sat by Pulse 93 94 94 Oximetry 11/20/16 11/20/16 11/20/16 20:00 20:16 20:22 Temperature 97.7 F Pulse Rate 87 19 Respiratory 19 18 92 Rate Blood Pressure 146/61 (mmHg) O2 Sat by Pulse 92 87 Oximetry 11/20/16 11/20/16 11/21/16 21:35 23:13 00:35 Temperature 99.7 F Pulse Rate 87 71 64 Respiratory 19 16 Rate Blood Pressure 116/39 148/60 (mmHg) O2 Sat by Pulse 92 93 92 Oximetry 11/21/16 11/21/16 11/21/16 02:59 03:16 03:32 Temperature 98.1 F Pulse Rate 63 39 Respiratory 20 18 Rate Blood Pressure 150/82 (mmHg) O2 Sat by Pulse 93 96 93 Oximetry 11/21/16 11/21/16 11/21/16 03:41 05:30 07:36 Temperature 98.1 F Pulse Rate 54 60 59 Respiratory 16 Rate Blood Pressure 138/64 (mmHg) O2 Sat by Pulse 96 Oximetry 11/21/16 11/21/16 08:07 08:50 Temperature Pulse Rate 79 79 Respiratory 15 15 Rate Blood Pressure (mmHg) O2 Sat by Pulse 97 97 Oximetry Oxygen Devices in Use Now: None Appearance: Alert, in a chair. In good spirits. Looks comfortable. Eyes: No Scleral Icterus Ears/Nose/Mouth/Throat: Clear Oropharnyx, Mucous Membranes Moist Neck: NL Appearance and Movements; NL JVP, No Thyroid Enlargement, Masses Respiratory: Symmetrical Chest Expansion and Respiratory Effort, Clear to Auscultation, Clear to Percussion Extremities: No Edema, No Clubbing, Cyanosis, - Skin: No Rash or Ulcers, No Nodules or Sclerosis, - Neurological: Alert and Oriented x 3, NL Sensation Result Diagrams: 11/20/16 05:32 11/20/16 05:32 Additional Lab and Data: Lab Results 11/19/16 11/19/16 11/19/16 Range/Units 15:00 15:00 15:00 WBC 22.2 H (3.5-10.8) 10^3/ul RBC 4.80 (4.0-5.4) 10^6/ul Hgb 14.9 (14.0-18.0) g/dl Hct 44 (42-52) % MCV 92 (80-94) fL MCH 31 (27-31) pg MCHC 34 (31-36) g/dl RDW 15 (10.5-15) % Plt Count 201 (150-450) 10^3/ul MPV 8 (7.4-10.4) um3 Neut % (Auto) 88.9 H (38-83) % Lymph % (Auto) 3.6 L (25-47) % [place] % (Auto) 6.4 (1-9) % Eos % (Auto) 0 (0-6) % Baso % (Auto) 1.1 (0-2) % Absolute Neuts (auto) 19.7 H (1.5-7.7) 10^3/ul Absolute Lymphs (auto) 0.8 L (1.0-4.8) 10^3/ul Absolute Monos (auto) 1.4 H (0-0.8) 10^3/ul Absolute Eos (auto) 0 (0-0.6) 10^3/ul Absolute Basos (auto) 0.3 H (0-0.2) 10^3/ul Absolute Nucleated RBC 0 10^3/ul Nucleated RBC % 0 Sodium 135 (133-145) mmol/L Potassium 3.6 (3.5-5.0) mmol/L Chloride 100 L (101-111) mmol/L Carbon Dioxide 31 (22-32) mmol/L Anion Gap 4 (2-11) mmol/L BUN 16 (6-24) mg/dL Creatinine 0.58 L (0.67-1.17) mg/dL Est GFR ( Amer) 178.1 (>60) Est GFR (Non-Af Amer) 138.5 (>60) BUN/Creatinine Ratio 27.6 H (8-20) Glucose 144 H (70-100) mg/dL Lactic Acid 1.9 (0.5-2.0) mmol/L Calcium 9.1 (8.6-10.3) mg/dL Total Bilirubin 0.90 (0.2-1.0) mg/dL AST 13 (13-39) U/L ALT 27 (7-52) U/L Alkaline Phosphatase 41 (34-104) U/L Troponin I 0.04 H* (<0.04) ng/mL C-Reactive Protein 81.59 H (< 5.00) mg/L Total Protein 6.6 (6.4-8.9) g/dL Albumin 3.6 (3.2-5.2) g/dL Globulin 3.0 (2-4) g/dL Albumin/Globulin Ratio 1.2 (1-3) Microbiology and Other Data: Microbiology 11/19/16 20:15 Gram Stain - Final Sputum Expectorated 11/19/16 17:09 Legionella Urinary Antigen - Final Urine Negative Legionella Streptococcus pneumoniae Ag Screen - Final Negative S. pneumo Antigen 11/19/16 17:23 Influenza Types A,B Antigen ([facility]) - Final Nasopharyngeal Specimen received for Influenza A/B Molecular testing Assess/Plan/Problems-Billing Assessment: - Patient Problems (1) Pneumonia Current Visit: Yes Status: Acute Code(s): J18.9 - PNEUMONIA, UNSPECIFIED ORGANISM SNOMED Code(s): 117588825 Comment: Will cover the achromobacter that grew on 11/04. Clinically much improved. Plan discharge 11/21 with 14 day courseTMP-SMX. Discussed with Dr. Israel. Fup Dr. Carrasco (2) Atrial fibrillation Current Visit: No Status: Acute Code(s): I48.91 - UNSPECIFIED ATRIAL FIBRILLATION SNOMED Code(s): 40989814 Comment: Continue metoprolol, apixaban. (3) COPD exacerbation Current Visit: No Status: Acute Code(s): J44.1 - CHRONIC OBSTRUCTIVE PULMONARY DISEASE W (ACUTE) EXACERBATION SNOMED Code(s): 438108113 Comment: Prednisone taper. Status and Disposition: Discharge now. Fup Jhonatan Mccarthy.
[2016-11-21] MEDS ORDERED: Sulfamethox/Trimethoprim DS 800/160* TAB PO SCH (11:00)
[2016-11-21] MEDS ORDERED: Vancomycin Trough Check NOTE FOLLOW UP SCH (23:30)
--- NOTE | 2016-11-22 00:27 | DS ---
CC: Dr. Garcia; Dr. Israel DISCHARGE SUMMARY: DATE OF ADMISSION: DATE OF DISCHARGE: 11/21/16 HOSPITAL COURSE: This 71-year-old man presented with cough and shortness of breath. He had been ta toi amoxicillin clavulanate at home for respiratory infection, but was not getting any better. He was started on some prednisone as an outpatient. After initial improvements, continue to decline. He was using nebulizers at home but without much help and came to the emergency room. The rest of t he history and physical detailed in the dictated admission note. CT scan of the chest showed pulmonary infiltrates. Sputum culture from 11/04/[address] species. The patient was treated with vancomycin, azithromycin and piperacillin, tazobactam. He did very well in the hospital. His prednisone was slowly tapered after getting some methylprednisolone in the em ergency room. FINAL DIAGNOSES: 1. Achromobacter pneumonia. 2. Atrial fibrillation. 3. Chronic obstructive pulmonary disease exacerbation. DISCHARGE MEDICATIONS: 1. Guaifenesin ER 600 mg b.i.d. 2. Sulfamethoxazole/trimethoprim double strength one b.i.d. for 14 days. 3. Budesonide formoterol 160-4.5 two puffs b.i.d. 4. Tiotropium capsule 1 daily. 5. Montelukast 10 mg daily. 6. Albuterol sulfate 2 puffs every 4 hours p.r.n. 7. Albuterol 2.5 mg by inhalation every 4 hours p.r.n. 8. Ibuprofen two tablets every 6 hours p.r.n. 9. Apixaban 5 mg b.i.d. 10. Metoprolol succinate 12.5 mg daily. 11. Prednisone 10 mg to taper from 4 to 0 over 4 days. [id number]/[facility] #: [id number]
== END 2016-11-21 12:00 | disposition home or self-care (01) | DRG 190 ==
LOC: ED 13:35 → MEDTELE 16:28
PROVIDERS: ADMIT Internal Medicine; ATTEND Internal Medicine
DX: J44.0 Chronic obstructive pulmonary disease with (acute) lower respiratory infection (principal); J18.9 Pneumonia, unspecified organism; J44.1 Chronic obstructive pulmonary disease with (acute) exacerbation; I48.91 Unspecified atrial fibrillation; I10 Essential (primary) hypertension; E78.5 Hyperlipidemia, unspecified; Z85.46 Personal history of malignant neoplasm of prostate; Z90.79 Acquired absence of other genital organ(s); Z79.01 Long term (current) use of anticoagulants; Z79.52 Long term (current) use of systemic steroids; Z87.891 Personal history of nicotine dependence
CPT/HCPCS: 36415; 71020; 71260; 80048; 80053; 80202; 81003; 83605; 84484; 85025; 85610; 86140; 87040; 87070; 87077; 87086; 87205; 87502; 87899; 93005; 94640; 94760; 99212; A9270-GY; G0463; J0456; J2543; J2930; J3370; J7512; Q9967

== ENCOUNTER 2016-11-28 12:05 | Inpatient (IN) | payer MEDICARE ==
[2016-11-28] MEDS ORDERED: NS 0.9% 1000 ML* 1,000 ML IV ONE (12:19)
--- NOTE | 2016-11-28 12:58 | RAD ---
Indication: Shortness of breath. 2 views of the chest including dual energy PA views demonstrate no mediastinal shift. Heart is of normal size and configuration. Lung jules are clear. IMPRESSION: No active cardiopulmonary disease is noted.
[2016-11-28 13:24] LABS: Add Diff/Slide Review? Slide Review Added; Comments Flag Yes; Hematocrit 45 % (42-52); Hemoglobin 14.9 g/dl (14.0-18.0); Mean Corpuscular HGB Conc 33 g/dl (31-36); Mean Corpuscular Hemoglobin 30 pg (27-31); Mean Corpuscular Volume 92 fL (80-94); Mean Platelet Volume 7 um3 (7.4-10.4); Red Blood Count 4.92 10^6/ul (4.0-5.4); Red Cell Distribution Width 15 % (10.5-15); White Blood Count 11.8 10^3/ul (3.5-10.8)
[2016-11-28 13:37] LABS: Albumin 3.6 g/dL (3.2-5.2); BUN/Creatinine Ratio 32.9 (8-20); Calcium 8.8 mg/dL (8.6-10.3); EGFR African American 119.5 (>60); EGFR Non-African American 92.9 (>60); Potassium 5.1 mmol/L (3.5-5.0); Total Bilirubin 0.6 mg/dL (0.2-1.0); Total Protein 6.6 g/dL (6.4-8.9)
[2016-11-28 13:38] LABS: Troponin I 0.03 ng/mL (<0.04)
[2016-11-28 13:58] LABS: C Reactive Protein 1.39 mg/L (< 5.00)
[2016-11-28] MEDS ORDERED: Albuterol/Ipratropium NEB.SOL* Albuterol 2.5 MG/Ipratropium 0.5 MG 3 ML INH ONE (14:09)
[2016-11-28] MEDS ORDERED: methylPREDNISolone 125 MG* 2 ML VIAL IV ONE (14:09)
[2016-11-28] MEDS ORDERED: Oseltamivir CAP* 75 MG PO ONE (14:11)
--- NOTE | 2016-11-28 14:11 | ED ---
Artemio Mckeon Anna, scribed for Marcelle Pearce MD on 11/28/16 at 1227 . Respiratory - HPI Summary HPI Summary: Patient is a y/o male coming to [facility] presenting with SOB that began three days ago. He was seen at the hospital at the end of October with PNA and went home with medication. He came back in 6 days after discharge with double PNA. He was treated here and discharged home one week ago. At home, he was doing very well until yesterday. Today, at his PCP, his O2 Sat was 88. He just started taking Eliquis, and since then he has had bilateral leg edema. His stomach is also bloated. Denies fever. He was on a course of Prednisone and decreasing his dosage. He resumed taking 40 mg Prednisone beginning three days ago. He is not on O2 at home. Hx A Fib, COPD. Denies Hx DM, PE, ME. - History of Current Complaint Chief Complaint: EDShortnessOfBreath Stated Complaint: LOW OXYGEN LEVEL-SENT BY [facility] Time Seen by Provider: 11/28/16 12:18 Hx Obtained From: Patient, Family/Cost Engineer - Accompanied by - Allergy/Home Medications Allergies/Adverse Reactions: Allergies Allergy/AdvReac Type Severity Reaction Status Date / Time Simvastatin Allergy See Comment Verified 11/28/16 12:07 Atorvastatin [From Lipitor] AdvReac Unknown Verified 11/28/16 12:07 Reaction Details Home Medications: Home Medications Albuterol 2.5MG/3ML (0.083%)* [Ventolin 2.5 MG/3 ML NEB.MILAGRO*] 2.5 mg INH Q4H PRN 11/28/16 [History Confirmed 11/28/16] Atorvastatin* [Lipitor*] 20 mg PO DAILY 11/28/16 [History Confirmed 11/28/16] amLODIPine TAB* [Norvasc TAB*] 10 mg PO DAILY 11/28/16 [History Confirmed ] PMH/Surg Hx/FS Hx/Imm Hx Endocrine/Hematology History: Denies: Hx Diabetes, Hx Thyroid Disease Cardiovascular History: Reports: Hx Hypertension, Other Cardiovascular Problems/ Disorders - Afib Denies: Hx Pacemaker/ICD Respiratory History: Reports: Hx Asthma, Hx Chronic Obstructive Pulmonary Disease (COPD), Hx Pneumonia, Other Respiratory Problems/Disorders - COPD GI History: Denies: Hx Ulcer Musculoskeletal History: Reports: Hx Orthopedic Injury - Right shoulder, & broken left foot (many years ago) Sensory History: Reports: Hx Contacts or Glasses Denies: Hx Hearing Aid, Hx Hearing Problem Opthamlomology History: Reports: Hx Contacts or Glasses Psychiatric History: Denies: Hx Panic Disorder - Cancer History Cancer Type, 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 - Surgical History Surgery Procedure, Year, and Place: PROSTATECTOMY,Tonsilectomy Infectious Disease History: No Infectious Disease History: Denies: Hx Clostridium Difficile, Hx Hepatitis, Hx Human Immunodeficiency Virus (HIV), Hx of Known/Suspected MRSA, Hx Shingles, Hx Tuberculosis, Hx Known/ Suspected VRE, Hx Known/Suspected VRSA, History Other Infectious Disease, Traveled Outside the [place] in Last 30 Days - Family History Known Family History: Positive: Hypertension - Social History Occupation: Retired Lives: With Family Alcohol Use: None Substance Use Type: Reports: None Hx Tobacco Use: No Smoking Status (MU): Former Smoker Type: Cigarettes Amount Used/How Often: 30 +years Review of Systems Negative: Fever Positive: Shortness Of Breath Positive: Other - abdominal bloating Positive: Edema - bilateral All Other Systems Reviewed And Are Negative: Yes Physical Exam Triage Information Reviewed: Yes Vital Signs On Initial Exam: Initial Vitals Temp Pulse Resp BP Pulse Ox 98.2 F 94 18 150/69 92 11/28/16 12:08 11/28/16 12:08 11/28/16 12:08 11/28/16 12:08 11/28/16 12:08 Vital Signs Reviewed: Yes Appearance: Positive: Well-Appearing, No Pain Distress Skin: Positive: Warm, Skin Color Reflects Adequate Perfusion, Dry Eyes: Positive: EOMI, KEVEN ENT: Positive: Pharynx normal, TMs normal Neck: Positive: Supple, Nontender Respiratory/Lung Sounds: Positive: Breath Sounds Present, Wheezes - Expiratory. Negative: Rales, Rhonchi Cardiovascular: Positive: RRR. Negative: Murmur, Rub, Other - gallop Abdomen Description: Positive: Nontender, Soft. Negative: Distended, Guarding, Other: - rebound Bowel Sounds: Positive: Present Musculoskeletal: Positive: Strength/ROM Intact, Edema Left, Edema Right Neurological: Positive: Normal, Sensory/Motor Intact, Alert, Oriented to Person Place, Time, CN Intact II-III Psychiatric: Positive: Affect/Mood Appropriate Diagnostics - Vital Signs Vital Signs Temp Pulse Resp BP Pulse Ox 11/28/16 12:08 98.2 F 94 18 150/69 92 - Laboratory Lab Results: Lab Results 11/28/16 11/28/16 11/28/16 Range/Units 12:25 12:34 12:34 WBC 11.8 H (3.5-10.8) 10^3/ul RBC 4.92 (4.0-5.4) 10^6/ul Hgb 14.9 (14.0-18.0) g/dl Hct 45 (42-52) % MCV 92 (80-94) fL MCH 30 (27-31) pg MCHC 33 (31-36) g/dl RDW 15 (10.5-15) % Plt Count 199 (150-450) 10^3/ul MPV 7 L (7.4-10.4) um3 Neut % (Auto) 91.3 H (38-83) % Lymph % (Auto) 1.7 L (25-47) % Rhea % (Auto) 6.6 (1-9) % Eos % (Auto) 0 (0-6) % Baso % (Auto) 0.4 (0-2) % Absolute Neuts (auto) 10.7 H (1.5-7.7) 10^3/ul Absolute Lymphs (auto) 0.2 L (1.0-4.8) 10^3/ul Absolute Monos (auto) 0.8 (0-0.8) 10^3/ul Absolute Eos (auto) 0 (0-0.6) 10^3/ul Absolute Basos (auto) 0 (0-0.2) 10^3/ul Absolute Nucleated RBC 0.01 10^3/ul Nucleated RBC % 0.1 D-Dimer, Quantitative (Less Than 230) ng/mL Sodium 128 L (133-145) mmol/L Potassium 5.1 H (3.5-5.0) mmol/L Chloride 96 L (101-111) mmol/L Carbon Dioxide 24 (22-32) mmol/L Anion Gap 8 (2-11) mmol/L BUN 27 H (6-24) mg/dL Creatinine 0.82 (0.67-1.17) mg/dL Est GFR ( Amer) 119.5 (>60) Est GFR (Non-Af Amer) 92.9 (>60) BUN/Creatinine Ratio 32.9 H (8-20) Glucose 108 H (70-100) mg/dL Lactic Acid (0.5-2.0) mmol/L Calcium 8.8 (8.6-10.3) mg/dL Total Bilirubin 0.60 (0.2-1.0) mg/dL AST 26 (13-39) U/L ALT 32 (7-52) U/L Alkaline Phosphatase 46 (34-104) U/L Troponin I 0.03 (<0.04) ng/mL C-Reactive Protein 1.39 (< 5.00) mg/L B-Natriuretic Peptide ( - 100) pg/mL Total Protein 6.6 (6.4-8.9) g/dL Albumin 3.6 (3.2-5.2) g/dL Globulin 3.0 (2-4) g/dL Albumin/Globulin Ratio 1.2 (1-3) Influenza A (Rapid) Positive H (Negative) Influenza B (Rapid) Negative (Negative) 11/28/16 11/28/16 11/28/16 Range/Units 12:34 12:34 12:34 WBC (3.5-10.8) 10^3/ul RBC (4.0-5.4) 10^6/ul Hgb (14.0-18.0) g/dl Hct (42-52) % MCV (80-94) fL MCH (27-31) pg MCHC (31-36) g/dl RDW (10.5-15) % Plt Count (150-450) 10^3/ul MPV (7.4-10.4) um3 Neut % (Auto) (38-83) % Lymph % (Auto) (25-47) % Rhea % (Auto) (1-9) % Eos % (Auto) (0-6) % Baso % (Auto) (0-2) % Absolute Neuts (auto) (1.5-7.7) 10^3/ul Absolute Lymphs (auto) (1.0-4.8) 10^3/ul Absolute Monos (auto) (0-0.8) 10^3/ul Absolute Eos (auto) (0-0.6) 10^3/ul Absolute Basos (auto) (0-0.2) 10^3/ul Absolute Nucleated RBC 10^3/ul Nucleated RBC % D-Dimer, Quantitative 254 H (Less Than 230) ng/mL Sodium (133-145) mmol/L Potassium (3.5-5.0) mmol/L Chloride (101-111) mmol/L Carbon Dioxide (22-32) mmol/L Anion Gap (2-11) mmol/L BUN (6-24) mg/dL Creatinine (0.67-1.17) mg/dL Est GFR ( Amer) (>60) Est GFR (Non-Af Amer) (>60) BUN/Creatinine Ratio (8-20) Glucose (70-100) mg/dL Lactic Acid 1.3 (0.5-2.0) mmol/L Calcium (8.6-10.3) mg/dL Total Bilirubin (0.2-1.0) mg/dL AST (13-39) U/L ALT (7-52) U/L Alkaline Phosphatase (34-104) U/L Troponin I (<0.04) ng/mL C-Reactive Protein (< 5.00) mg/L B-Natriuretic Peptide 81 ( - 100) pg/mL Total Protein (6.4-8.9) g/dL Albumin (3.2-5.2) g/dL Globulin (2-4) g/dL Albumin/Globulin Ratio (1-3) Influenza A (Rapid) (Negative) Influenza B (Rapid) (Negative) Result Diagrams: 11/28/16 12:34 11/28/16 12:34 Lab Statement: Any lab studies that have been ordered have been reviewed, and results considered in the medical decision making process. - Radiology CXR Xray Interpretation: No Acute Changes Radiology Interpretation Completed By: Radiologist - IMPRESSION: No active cardiopulmonary disease is noted. - EKG 1219 Cardiac Rate: NL - 96 bpm EKG Rhythm: Sinus Rhythm ST Segment: Normal Ectopy: None EKG Interpretation: Some PVCs Disposition - Course Course Of Treatment: 71 yo male with copd hx with admissions for pna 2x in the last month back with worsened sob starting on Thu. flu is positive giving tamiflu, duo neb, solumedrol and case run by Dr. Alvares for admission - Diagnoses Provider Diagnoses: Influenza A, COPD exacerbation - Physician Notifications Discussed Care Of Patient With: Dr. Alvares (hospitalist) at 1408. Agrees to accept patient for admission. Discharge - Discharge Plan Condition: Stable Disposition: ADMITTED TO [facility] Referrals: Jelly Callahan MD [Primary Care Provider] - The documentation as recorded by the Artemio davis Anna accurately reflects the service I personally performed and the decisions made by me, Marcelle Pearce MD.
[2016-11-28] MEDS ORDERED: Albuterol 2.5 MG/3 ML NEB.SOL* (0.083%) INH PRN (15:39)
[2016-11-28] MEDS ORDERED: Acetaminophen TAB* 325 MG PO PRN (15:39)
[2016-11-28] MEDS ORDERED: Ondansetron INJ* 2 MG/ML VIAL IV PRN (15:39)
[2016-11-28] MEDS ORDERED: NS 0.9% 1000 ML* 1,000 ML IV SCH (15:45)
[2016-11-28] MEDS: Albuterol/Ipratropium NEB.SOL* Albuterol 2.5 MG/Ipratropium 0.5 MG 3 ML INH SCH ×2 (16:18→19:45)
[2016-11-28] MEDS: Mometasone/Formoter 200/5 MDI INH SCH (19:59)
[2016-11-28] MEDS ORDERED: Sulfamethox/Trimethoprim DS 800/160* TAB PO SCH (21:00)
[2016-11-28] MEDS: Apixaban* 5 MG TAB PO SCH (21:10)
[2016-11-28] MEDS: Oseltamivir CAP* 75 MG PO SCH (21:10)
[2016-11-28] MEDS: guaiFENesin ER TAB 600 MG PO SCH (21:11)
[2016-11-28] MEDS ORDERED: Heparin VIAL(*) 5000 UNITS/ML VIAL (FIVE THOUSAND) SUBCUT SCH (22:00)
--- NOTE | 2016-11-28 22:07 | HP ---
HISTORY AND PHYSICAL: DATE OF ADMISSION: 11/28/16 PRIMARY CARE PROVIDER: Dr. Jelly Garcia. ATTENDING PHYSICIAN WHILE IN THE HOSPITAL: Dr. Lima Russell *(report dictated by Derek Garnica NP) CHIEF COMPLAINT: 1. Shortness of breath. 2. Cough. 3. Weakness. HISTORY OF PRESENT ILLNESS: Mr. Celis is a 71-year-old male patient, who has had recurrent episodes of COPD exacerbation. This is his third time in the hospital, most recent was in October. He comes in today. He recently was just here about 7 days ago, discharged. He was doing well initially, then over the last 2 to 3 days, he has got progressive worsening shortness of breath and cough, having chills over the last 24 hours and feeling much more weak. He went to his primary's office. It was noted that his O2 saturations on room air were 88%. He appeared to be short of breath and there was concern and he was told that he was not moving a lot of air. He says that he certainly felt short of breath and he had more and more cough and he was feeling really weak, so she referred him back to the ER. The patient was evaluated and ultimately found to be positive for flu. He denies having any recent change in medications since discharge. He says that he has not had any chest pain or any abdominal pain and he has not had any nausea, vomiting, or diarrhea. He was evaluated there and the hospitalist service was asked to evaluate for admission. PAST MEDICAL HISTORY: Significant for: 1. COPD. 2. Hypertension. 3. Hyperlipidemia. 4. Atrial fibrillation. 5. Prostate cancer. PAST SURGICAL HISTORY: He has had: 1. Prostatectomy. 2. Tonsillectomy. MEDICATIONS: Home meds according to the patient include: 1. Mucinex 600 mg p.o. b.i.d. 2. Norvasc 10 mg daily. 3. Spiriva 1 capsule inhaled daily. 4. Bactrim 1 tablet p.o. b.i.d. for 7 more days. 5. Singulair 10 mg daily. 6. Metoprolol XL 12.5 mg daily. 7. Ibuprofen 400 mg every 6 hours as needed. 8. Symbicort 2 puffs inhaled b.i.d. 9. Lipitor 20 mg a day. 10. Apixaban 5 mg p.o. b.i.d. 11. Ventolin 2 puffs inhaled every 4 hours as needed. 12. Ventolin neb 2.5 mg inhaled every 4 hours needed. ALLERGIES TO MEDICATIONS: Include SIMVASTATIN and ATORVASTATIN. FAMILY HISTORY: His mother had a history of passing away in her sleep. Father had a history of CVA. SOCIAL HISTORY: He is a former smoker, does not drink alcohol. Lives with his . Surrogate decision maker is his . REVIEW OF SYSTEMS: There are no documented fevers. He did admit to having chills. There is no significant weight change. He denied having any double vision. There is no ear discharge. There is no rhinorrhea. No sore throat. No thyroid enlargement. Denies having any chest pain. There is no orthopnea, no nocturnal dyspnea. There is dyspnea on exertion. There was a cough. There is no abdominal pain. No nausea, no vomiting. No dysuria, no frequency. No loss of consciousness. No pruritus and no skin ulcerations. Review of 14 systems completed, all others negative. PHYSICAL EXAMINATION GENERAL: At this time, Mr. Celis is a 71-year-old male patient. He is sitting in the hospital bed. He does not appear to be in any acute distress. VITAL SIGNS: Reveal blood pressure 164/80, pulse 98, respirations 18, O2 sat 93 %. HEENT: Head is atraumatic, normocephalic. Eyes: EOMs are intact. Sclerae anicteric and not pale. Throat: Oral mucosa appears to be dry. No oropharyngeal erythema. NECK: Supple. LUNGS: Clear to auscultation bilaterally. He had no wheezes, rales, or rhonchi heard today. He is moving better air. HEART: Heart sounds S1 and S2. Irregularly irregular rate. No murmurs, rubs, or gallops. EXTREMITIES: Pulses were 2+ throughout. He is able to move all 4 extremities with 5/5 strength. No peripheral edema. NEUROLOGIC: He is awake, alert, and oriented x3. Tongue midline. Graduating Machine Operator equal. No gross focal deficits. SKIN: Grossly intact. DIAGNOSTIC STUDIES/LAB DATA: Revealed WBC of 11.8, RBC of 4.92, hemoglobin 14.9, hematocrit of 45, platelet count 199. The D-dimer was 254. Sodium 128, potassium 5.1, bicarb 24, BUN 27, creatinine 0.82, glucose of 108, lactate 1.3, calcium 8.8. Total bili 0.6, AST 26, . Troponin 0.03. Albumin 3.6. Serology was positive for flu A. He had a chest x-ray obtained today, which when I read I did not appreciate any acute infiltrates. Radiology read it as no acute cardiopulmonary disease noted. EKG showed atrial fibrillation with a rate of 97. No ST elevations or T-wave inversions. Old medical records were reviewed. ASSESSMENT AND PLAN: Mr. Celis is a 71-year-old male patient, coming into the ER today with complaints of worsening cough, chills, and weakness. On evaluation, he was noted to be flu positive, he will be admitted under observation status for: 1. Chronic obstructive pulmonary disease exacerbation with positive flu at this point. He is not really wheezing that much, but I will continue his prednisone 40 mg a day that he is taking currently. I will continue Dulera and nebs around the clock for the time being. We will start him on Tamiflu, he is due to finish his Bactrim from his last hospitalization. He is on this for another 7 days. We will continue this and continue to follow and continue with pulmonary toileting. 2. History of hypertension. Continue meds as prescribed. 3. Hyponatremia. This is probably related to a component of dehydration. I noticed BUN is also hydrated and repeat his labs later today. He did receive fluids in the ED. 4. Hyperlipidemia. Continue current medical regimen. 5. Atrial fibrillation. Continue apixaban. He is rate controlled. 6. Prostate cancer. Follow with his primary. 7. DVT prophylaxis. He is on Eliquis. 8. Code status. Full code. 9. Fluids, electrolytes, and nutrition. He can have a regular diet. TIME SPENT: On the admission 60 minutes, greater than half the time was spent face- to-face with the patient obtaining my history and physical, other half the time was spent going over the plan of care with the patient and implementing the plan of care. I did discuss the plan of care with my attending, Dr. Russell, who is in agreement. DEREK GARNICA NP CC: Dr. Jlely Garcia* [id number]/[facility] #: [id number] NIKKY
[2016-11-29] MEDS: Albuterol/Ipratropium NEB.SOL* Albuterol 2.5 MG/Ipratropium 0.5 MG 3 ML INH SCH ×4 (00:06→11:10)
[2016-11-29 06:42] LABS: Hematocrit 42 % (42-52); Hemoglobin 13.9 g/dl (14.0-18.0); Mean Corpuscular HGB Conc 33 g/dl (31-36); Mean Corpuscular Hemoglobin 31 pg (27-31); Mean Corpuscular Volume 92 fL (80-94); Mean Platelet Volume 8 um3 (7.4-10.4); Red Blood Count 4.55 10^6/ul (4.0-5.4); Red Cell Distribution Width 15 % (10.5-15); White Blood Count 10.9 10^3/ul (3.5-10.8)
[2016-11-29 07:01] LABS: Add Diff/Slide Review? Slide Review Added; Comments Flag Yes
[2016-11-29 07:03] LABS: BUN/Creatinine Ratio 33.3 (8-20); Calcium 8.4 mg/dL (8.6-10.3); EGFR African American 161.9 (>60); EGFR Non-African American 125.9 (>60); Potassium 4.6 mmol/L (3.5-5.0)
[2016-11-29] MEDS: Mometasone/Formoter 200/5 MDI INH SCH (07:17)
[2016-11-29 07:57] VITALS: BP 110/95
[2016-11-29] MEDS: Apixaban* 5 MG TAB PO SCH (08:24)
[2016-11-29] MEDS: guaiFENesin ER TAB 600 MG PO SCH (08:25)
[2016-11-29] MEDS: Oseltamivir CAP* 75 MG PO SCH (08:25)
[2016-11-29] MEDS ORDERED: predniSONE TAB* 20 MG PO SCH (09:00)
[2016-11-29] MEDS ORDERED: amLODIPine TAB* 5 MG PO SCH (09:00)
[2016-11-29] MEDS ORDERED: Metoprolol Succinate XL TAB* 25 MG PO SCH (09:00)
[2016-11-29] MEDS ORDERED: Montelukast Sodium TAB* 10 MG PO SCH (09:00)
[2016-11-29] MEDS ORDERED: Atorvastatin* 20 MG TAB PO SCH (09:00)
--- NOTE | 2016-11-29 23:10 | DS ---
DISCHARGE SUMMARY: DATE OF ADMISSION: 11/28/16 DATE OF DISCHARGE: 11/29/16 PRIMARY CARE PROVIDER: Jelly Garcia MD HARPSICHORD MAKER: Raquel Israel MD PRIMARY DIAGNOSIS: Hypoxic respiratory failure. SECONDARY DIAGNOSES: 1. Influenza A. 2. Chronic obstructive pulmonary disease. 3. Recent diagnosis of bacterial pneumonia with positive sputum culture for rothia and achromobacter. 4. Hypertension. 5. Hyperlipidemia. 6. Atrial fibrillation. 7. Oral thrush. MEDICATIONS ON DISCHARGE: Include: 1. Amlodipine 10 mg daily. 2. Lipitor 20 mg daily. 3. Metoprolol XL 12.5 mg daily. 4. Eliquis 5 mg twice daily. 5. Advil 400 mg every 6 hours as needed for pain. 6. Albuterol 2 puffs inhaled every 4 hours as needed for shortness of breath. 7. Albuterol nebulizer every 4 hours as needed for shortness of breath. 8. Spiriva 1 cap inhaled daily. 9. Bactrim DS 1 tab twice daily for 7 additional days. 10. Singulair 10 mg daily. 11. Symbicort 160/4.5 mcg 2 puffs twice daily. 12. Guaifenesin 600 mg twice daily. 13. Prednisone 50 mg daily for 5 additional days. 14. Nystatin 1000 [employer] Unit swish and spit 1 bottle. HISTORY OF PRESENT ILLNESS AND HOSPITAL COURSE: A 71-year-old man who has several months of atypical lung disease including pneumonia with sputum culture for achromobacter, on 11/04/16, was treated with broad-spectrum and the patient discharged on prolonged course of Bactrim, returned in November with recurrent pneumonia, and discharged and returned again with shortness of breath, found positive influenza A and hypoxic respiratory failure, admitted to the hospitalist service. Of note, the patient did not have any fevers preceding hospital stay or during the hospital stay nor did he have any myalgias or cough. When seen by this author, he continued to be free of fever, cough, and myalgias. The patient did test positive for influenza and will not be discharged with Tamiflu as he is outside the window for treatment as well as asymptomatic at this point. He will be continued on the Bactrim, which he was previously discharged on when he was diagnosed with Achromobacter pneumonia. Of note, the same sputum culture that was diagnosed with achromobacter also had mold in it. The patient failed to improve or has recurrent symptoms. Can consider CAT scan again and/or therapy for mold. The patient should be seen by Dr. Israel in clinic as well as primary care provider. This was discussed at length with the patient and his . He was able to ambulate around the unit. He was on room air on the day of discharge. He felt well enough to return home. He will be discharged with 5-day course of steroids. If he fails outpatient again, additional consideration to chronic suppressive steroids can be made. AT FOLLOWUP: Please: 1. Evaluate respiratory status. Please consider aforementioned recommendations as above. 2. No other specific labs or vitals that need followup. Reasons to return to the hospital including but not limited to recurrent or worsening symptoms, shortness of breath, chest pain, lightheadedness, loss of consciousness, cough, fevers, chills, night sweats, or inability to obtain or tolerate his medications discussed with the patient and his . They acknowledged understanding. TIME SPENT: Greater than 40 minutes was spent on discharge of this patient with greater than half the time spent [id number] with the patient. CC: Dr. Garcia; Dr. Israel * [id number]/[facility] #: [id number] [facility]
== END 2016-11-29 15:00 | disposition home or self-care (01) | DRG 193 ==
LOC: ED 12:05 → MED 14:09
PROVIDERS: ADMIT Internal Medicine; ATTEND Internal Medicine
DX: J10.1 Influenza due to other identified influenza virus with other respiratory manifestations (principal); J96.91 Respiratory failure, unspecified with hypoxia; B37.0 Candidal stomatitis; I48.91 Unspecified atrial fibrillation; E87.1 Hypo-osmolality and hyponatremia; J44.1 Chronic obstructive pulmonary disease with (acute) exacerbation; E86.0 Dehydration; I10 Essential (primary) hypertension; E78.5 Hyperlipidemia, unspecified; Z87.01 Personal history of pneumonia (recurrent); Z88.8 Allergy status to other drugs, medicaments and biological substances; Z90.79 Acquired absence of other genital organ(s); Z82.49 Family history of ischemic heart disease and other diseases of the circulatory system; Z87.891 Personal history of nicotine dependence; Z85.46 Personal history of malignant neoplasm of prostate; Z82.3 Family history of stroke; Z79.01 Long term (current) use of anticoagulants; Z79.51 Long term (current) use of inhaled steroids
CPT/HCPCS: 36415; 71020; 80048; 80053; 83605; 83880; 84484; 85025; 85379; 85610; 86140; 87040; 87502; 87899; 93005; 94640; 94760; A9270-GY; J2930; J7512

== ENCOUNTER 2016-12-04 07:37 | Inpatient (IN) | payer MEDICARE ==
[2016-12-04 08:50] LABS: Hematocrit 45 % (42-52); Mean Corpuscular HGB Conc 33 g/dl (31-36); Mean Corpuscular Hemoglobin 30 pg (27-31); Mean Corpuscular Volume 91 fL (80-94); Mean Platelet Volume 8 um3 (7.4-10.4); Red Blood Count 4.91 10^6/ul (4.0-5.4); Red Cell Distribution Width 14 % (10.5-15); White Blood Count 19.5 10^3/ul (3.5-10.8)
--- NOTE | 2016-12-04 08:51 | RAD ---
Indication: Cough. COPD. Cardiac disease with atrial fibrillation. Comparison: November 28, 2016 chest radiograph and November 19, 2016 CT. Technique: Upright AP 0815 hours. Report: Elevated lung volumes and both mild coarsening and rarefaction of the interstitial markings. New alveolar consolidation at the LEFT lung base compared with the November 28, 2016 exam without volume loss most consistent with pneumonia. Negative for pleural effusions. Negative for pneumothorax. The heart, pulmonary vasculature, and mediastinal contours are unremarkable. IMPRESSION: New LEFT basilar infiltrate most consistent with pneumonia.
[2016-12-04 08:55] LABS: Add Diff/Slide Review? Slide Review Added; Comments Flag Yes
[2016-12-04 09:04] LABS: Albumin 3.4 g/dL (3.2-5.2); BUN/Creatinine Ratio 43.9 (8-20); Calcium 9.2 mg/dL (8.6-10.3); EGFR African American 153.5 (>60); EGFR Non-African American 119.3 (>60); Globulin 2.9 g/dL (2-4); Potassium 4.3 mmol/L (3.5-5.0); Total Bilirubin 0.8 mg/dL (0.2-1.0); Total Protein 6.3 g/dL (6.4-8.9)
[2016-12-04 09:17] LABS: Troponin I 0.04 ng/mL (<0.04)
[2016-12-04] MEDS ORDERED: Ciprofloxacin 400MG IVPREMIX(* 400 MG/200 ML BAG IVPB ONE (09:31)
[2016-12-04] MEDS ORDERED: Azithromycin IV(*) 500 MG in NS 0.9% 250 ML* 250 ML IVPB SCH (10:00)
[2016-12-04] MEDS: Albuterol 2.5 MG/3 ML NEB.SOL* (0.083%) INH PRN (10:24)
[2016-12-04] MEDS ORDERED: Albuterol 2.5 MG/3 ML NEB.SOL* (0.083%) INH PRN (11:28)
[2016-12-04] MEDS ORDERED: Acetaminophen TAB* 325 MG PO PRN (11:31)
[2016-12-04] MEDS ORDERED: NS 0.9% 1000 ML* 1,000 ML IV SCH (11:45)
[2016-12-04] MEDS: Nystatin SUSPENSION* 100000 UNITS/ML 5 ML UDC PO SCH ×3 (12:54→21:45)
[2016-12-04] MEDS: Levofloxacin 750 MG IVPREMIX(* 750 MG/150 ML BAG IVPB SCH (12:55)
--- NOTE | 2016-12-04 16:47 | HP ---
HISTORY AND PHYSICAL: DATE OF ADMISSION: 12/04/16 TIME OF EVALUATION: 11 a.m. CHIEF COMPLAINT: Shortness of breath. HISTORY OF PRESENT ILLNESS: Mr. Celis is a 71-year-old male with a past medical history of COPD, hypertension, hyperlipidemia, atrial fibrillation, prostate CA who presents to the emergency room with complaints of shortness of breath. This is his fourth admission since October with COPD and pneumonia. He was initially admitted on 11/04/16 to 11/06/16, with the impression of COPD exacerbation secondary to community acquired pneumonia. On that same admission he was also diagnosed with non-STEMI and atrial fibrillation. He was discharged home on cefpodoxime and azithromycin and a prednisone taper. He went to [facility] on 11/19/16 and from there he was sent to the emergency room and admitted again under the impression of Achromobacter pneumonia and COPD exacerbation. He was discharged home on Bactrim to complete 14 days of treatment. He was once again admitted on 11/28/16 to 11/29/16, with the impression of hypoxemic respiratory failure secondary to influenza A and COPD exacerbation. He was continued on the Bactrim DS and he was not treated with Tamiflu as it was felt he was outside the window for treatment and had already sustained symptomatic improvement at that point. The patient states that he was feeling a little bit better when he went home, but a couple of days later he started to have the same symptoms of progressive shortness of breath and productive cough that continue to escalate despite him using his inhalers at home and this prompted his visit to the emergency room today. He also complains of bilateral lower extremity edema that started on his prior admission. PAST MEDICAL HISTORY: 1. COPD. 2. Hypertension. 3. Hyperlipidemia. 4. Atrial fibrillation. 5. Prostate cancer status post prostatectomy. 6. Multiple recent admissions for COPD exacerbation, pneumonia and influenza A. MEDICATIONS: 1. Albuterol 2.5 mg nebulized q.4 h. p.r.n. shortness of breath and wheezing. 2. Albuterol HFA 2 puffs inhaled q.4 h. p.r.n. shortness of breath and wheezing. 3. Amlodipine 10 mg p.o. daily. 4. Eliquis 5 mg p.o. b.i.d. 5. Atorvastatin 20 mg p.o. daily. 6. Symbicort 160/4.5 mcg 2 puffs inhaled b.i.d. 7. Guaifenesin ER 600 mg p.o. b.i.d. 8. Ibuprofen 400 mg p.o. q. 6 hours p.r.n. pain. 9. Metoprolol succinate 12.5 mg p.o. daily. 10. Montelukast 10 mg p.o. daily. 11. Nystatin suspension 100,000 units p.o. 4 times a day. 12. Prednisone 50 mg p.o. daily. 13. Bactrim DS 1 tablet p.o. b.i.d. 14. Spiriva 1 capsule inhaled daily. ALLERGIES: With SIMVASTATIN, the patient had changes in the blood test and he had elevation of LFTs with atorvastatin, although he is able to take it. FAMILY HISTORY: Father had history of CVA. SOCIAL HISTORY: He is a former smoker and no history of alcohol use. He lives with his , who is also his surrogate decision maker, Ms. Foley MorganBreana, phone number is [phone]. REVIEW OF SYSTEMS: A 14-point review of systems was performed and all the pertinent negative and positive findings are in the HPI. PHYSICAL EXAMINATION GENERAL: The patient is a pleasant gentleman, sitting up in the ED stretcher, in no acute distress. VITAL SIGNS: Temperature 97.5, heart rate is 104, respiratory rate 16. Oxygen saturation is 95% on 2 L nasal cannula. Blood pressure is 120/79. HEENT: Pupils are equal. Moist mucous membranes. CHEST: Breath sounds bilaterally with scattered rhonchi and wheeze. CVS: Normal S1 and S2. Regular rate and rhythm. ABDOMEN: Soft, nontender, nondistended. Bowel sounds present. EXTREMITIES: There is bilateral moderate pitting edema. NEURO: He is alert and oriented x3. Able to move all 4 extremities. LABORATORY AND IMAGING DATA: The patient had a CBC that showed WBC of 19.5, hemoglobin 15, hematocrit 45, and platelets of 241 with 88% neutrophils. Chemistry showed a sodium of 126, potassium 4.3, chloride 94, bicarb 25, BUN of 29, creatinine of 0.6, glucose of 90, lactic acid of 0.8, calcium 9.2. LFTs are normal. Troponin is 0.04. Chest x-ray showed a new left base infiltrate most consistent with pneumonia. EKG done on 12/04/16 at 11:35 a.m. showed sinus tachycardia at 104 beats per minute with no new ST-T changes when compared to his prior EKG from 11/28/16. ASSESSMENT AND PLAN: Mr. Celis is a 71-year-old male with a past medical history of chronic obstructive pulmonary disease, hypertension, hyperlipidemia, atrial fibrillation, prostate cancer, multiple recent admissions for chronic obstructive pulmonary disease exacerbation pneumonia, influenza A who presented to the emergency room with complaints of shortness of breath, cough, found to have a new left lower lobe infiltrate compatible with pneumonia. 1. Sepsis is present on admission. The patient meets sepsis criteria with tachycardia, tachypnea and leukocytosis. The source is pneumonia. 2. Chronic obstructive pulmonary disease exacerbation secondary to pneumonia. The patient will be continued on steroids, bronchodilators and I am going to start him on levofloxacin at this time as he was treated with cephalosporin, azithromycin and Bactrim with temporary improvement, but recurrence of symptoms. Blood cultures were already sent. Sputum culture is ordered. Legionella and pneumococcal antigens as well as influenza rapid tests were also ordered. The patient is showing signs of fluid overload at this point with lower extremity edema and he has a normal lactic acid, so I am not going to start IV fluids at this time. 3. Left lower lobe pneumonia. We will continue levofloxacin as described above. I am going to request an ID and pulmonology evaluation as this is his fourth admission since the end of October. On prior admissions, his sputum had grown Achromobacter and Rothia mucilaginosa. I am going to ask ID if they recommend any other different antibiotics and Pulmonology if they think a bronchoscopy is indicated at this time. 4. Hyponatremia. The patient seems to be fluid overloaded. I suspect that he probably has diastolic congestive heart failure. Transthoracic echocardiogram done on 11/05/16 showed an ejection fraction of 50% to 55% with normal wall motion. I am going to monitor him for now, but by tomorrow we may be able to start diuretics. 5. Atrial fibrillation. The patient is in sinus rhythm at this time. I am going to continue metoprolol and Eliquis. 6. DVT prophylaxis. The patient has a score of 3 on the DVT Prophylaxis Risk Assessment Guide. He is already anticoagulated with Eliquis. 7. Code status is full. TIME SPENT: Approximately 50 minutes were spent with the patient interview, medical records review, physical examination to complete this admission, more than half of this time was spent [id number] with the patient in coordination of care. CC: Jelly Garcia MD; Dr. Israel; Dr. Means * [id number]/[facility] #: [id number] MTDD
[2016-12-04] MEDS ORDERED: methylPREDNISolone SOD SUCC* 125 MG 2 ML VIAL IV ONE (18:08)
[2016-12-04] MEDS ORDERED: Oseltamivir CAP* 75 MG PO SCH (18:15)
[2016-12-04] MEDS: Oseltamivir CAP* 75 MG PO SCH (18:32)
[2016-12-04] MEDS: Albuterol HFA INHALER* 8 gm MDI INH PRN (20:09)
[2016-12-04] MEDS: Mometasone/Formoter 200/5 MDI INH SCH (20:10)
--- NOTE | 2016-12-04 21:30 | CONS ---
PULMONARY CONSULTATION: DATE OF CONSULT: 12/04/16 CONSULTATION REQUESTED BY: Dr. Lima Russell. REASON FOR CONSULT: Evaluation of recurrent pneumonia. HISTORY OF PRESENT ILLNESS: The patient is a 71-year-old male with history of COPD, hypertension, hyperlipidemia, atrial fibrillation, prostate CA who presented to the emergency room for evaluation of worsening shortness of breath. The patient was recently hospitalized and was treated for COPD exacerbation and pneumonia. The patient was feeling better until for the past couple of days when he started having worsening shortness of breath and productive cough despite using inhalers at home. The patient denies fevers or chills. The patient was recently treated with broad- spectrum antibiotics. He has been admitted 3 times since November 04. The patient has a history of COPD with recurrent bronchitis every winter. The patient usually requires antibiotics in the winter time. The patient was treated with Augmentin as an outpatient prior to his initial admission in October 2016. The patient was noted to have Achromobacter in the sputum. The patient's susceptibility shows resistant to multiple antibiotics other than Bactrim, Augmentin and Zosyn. The patient denies weight loss or loss of appetite. He had chest x-ray performed on the admission which shows new airspace opacity in left base. The patient also noted to have elevated white count and was admitted for management of pneumonia and COPD exacerbation. PAST MEDICAL HISTORY: 1. COPD. 2. Hypertension. 3. Hyperlipidemia. 4. Atrial fibrillation. 5. Prostate cancer, status post prostatectomy. 6. Recent pneumonia and influenza A. MEDICATIONS: 1. Albuterol. 2. Amlodipine. 3. Eliquis. 4. Atorvastatin. 5. Symbicort. 6. Guaifenesin. 7. Ibuprofen. 8. Metoprolol. 9. Montelukast. 10. Nystatin. 11. Prednisone. 12. Bactrim. 13. Spiriva. ALLERGIES: SIMVASTATIN. FAMILY HISTORY: CVA. SOCIAL HISTORY: Former smoker with significant smoking history. No alcohol or drug abuse. REVIEW OF SYSTEMS: A 14-point review of systems as per HPI. PHYSICAL EXAM: The patient in bed, in no apparent distress. Vital Signs: Temperature 97.2, pulse 107 beats per minute, respiratory rate 20 per minute, O2 sat 95% on 2 L, blood pressure 142/70. HEENT: Pupils equal, reactive to light. Mucous membranes moist. Chest: Good air entry bilaterally, scattered rhonchi and wheeze. Cardiovascular: S1, S2 present. Regular. Abdomen: Soft , nontender, nondistended. Bowel sounds present. Extremities: Edema present. Neuro: Alert, awake, oriented x3. No focal deficits. DIAGNOSTIC STUDIES/LAB DATA: WBC count of 19.5, hemoglobin of 15, hematocrit 45 with left shift. Sodium 126, potassium 4.3, chloride 94, bicarb 25, BUN 29, creatinine 0.66, troponins elevated at 0.05, lactic acid 0.8. Influenza A positive, 11/28/16 and 12/04/16. Sputum cultures from 11/19/16 showed Rothia mucilaginosa normal lisa. Sputum cultures from 11/04/16 showed Achromobacter species resistant to all antibiotics except for amoxicillin clavulanic acid, piperacillin tazobactam, meropenem and Bactrim. Chest x-ray on admission was personally reviewed by me. The patient with evidence of left basilar infiltrate and evidence of patchy air space opacity with air bronchogram on right consistent with resolving pneumonia. CT scan of the chest from 11/19/16 was reviewed again, which showed evidence of bibasilar airspace opacities and patchy airspace opacities in the middle lobe, evidence of hyperinflation, emphysema, no significant mediastinal or hilar adenopathy. IMPRESSION AND RECOMMENDATIONS: 71-year-old male with history of chronic obstructive pulmonary disease, history of recurrent bronchitis, atrial fibrillation, history of prostate cancer with multiple recent admissions for chronic obstructive pulmonary disease exacerbation, pneumonia, influenza with positive influenza swab again and worsening shortness of breath. Unclear etiology of recurrent pneumonia - viral PNA versus secondary bacterial pneumonia from recent flu. Fungal PNA also possibility given h/o steroid usage on multiple occasions No obvious endobronchial defect on CT chest. Bronchiolitis obliterans organizing pneumonia or cryptogenic organizing pneumonia is possibility. Possibility of immune deficiency state to be considered. The patient currently started on Levaquin. Would recommend ID consultation. Patient does have wheeze on auscultation , will initiate on steroids Will check for immunoglobulin deficiency state once off steroids. Will plan for bronchoscopy and bronchoalveolar lavage and transbronchial biopsy from left lower lobe given recurrent pneumonia once patient is stable clinically. Continue with bronchodilators. Continue with O2 supplementation. The patient with elevated troponins without any EKG changes. Thank you for allowing me to participate in the care of your patient. Will follow up with you. [id number]/[facility] #: [id number] NIKKY
[2016-12-04] MEDS: guaiFENesin ER TAB 600 MG PO SCH (21:44)
[2016-12-04] MEDS: Apixaban* 5 MG TAB PO SCH (21:44)
[2016-12-05 05:35] LABS: Hematocrit 40 % (42-52); Hemoglobin 13.4 g/dl (14.0-18.0); Mean Corpuscular HGB Conc 34 g/dl (31-36); Mean Corpuscular Hemoglobin 31 pg (27-31); Mean Corpuscular Volume 91 fL (80-94); Mean Platelet Volume 8 um3 (7.4-10.4); Red Blood Count 4.39 10^6/ul (4.0-5.4); Red Cell Distribution Width 15 % (10.5-15); White Blood Count 18.8 10^3/ul (3.5-10.8)
[2016-12-05 05:38] LABS: Add Diff/Slide Review? Slide Review Added; Comments Flag Yes
[2016-12-05 05:46] LABS: BUN/Creatinine Ratio 35.2 (8-20); Calcium 8.8 mg/dL (8.6-10.3); EGFR African American 193.4 (>60); EGFR Non-African American 150.4 (>60); Potassium 4.2 mmol/L (3.5-5.0)
--- NOTE | 2016-12-05 07:34 | ED ---
Nithin Mckeon Salem, scribed for Nithin Slater MD on 12/04/16 at 0855 . Influenza-Like Illness - HPI Summary HPI Summary: Patient is a 71 y/o male who presents to the ED with influenza-like sx. He reports a productive cough, as well as weakness and edema in the lower extremities, but denies fever or CP. Pt was discharged from the hospital 5 days ago and was in the ED 6 days ago. He is not on oxygen at home and he sleeps straight up in his bed. PMHx significant for COPD. - History of Current Complaint Chief Complaint: EDFluSymptoms Time Seen by Provider: 12/04/16 08:17 Hx Obtained From: Patient Onset/Duration: Gradual Onset, Lasting Days, Still Present Severity: Moderate Associated Signs & Symptoms: Cough - Productive. Weakness and edema in the lower extremities. - Allergy/Home Medications Allergies/Adverse Reactions: Allergies Allergy/AdvReac Type Severity Reaction Status Date / Time Simvastatin Allergy See Comment Verified 12/04/16 07:48 Atorvastatin [From Lipitor] AdvReac Unknown Verified 12/04/16 07:48 Reaction Details PMH/Surg Hx/FS Hx/Imm Hx Endocrine/Hematology History: Denies: Hx Diabetes, Hx Thyroid Disease Cardiovascular History: Reports: Hx Hypertension, Other Cardiovascular Problems/ Disorders - Afib Denies: Hx Pacemaker/ICD Respiratory History: Reports: Hx Asthma, Hx Chronic Obstructive Pulmonary Disease (COPD), Hx Pneumonia, Other Respiratory Problems/Disorders - COPD GI History: Denies: Hx Ulcer Musculoskeletal History: Reports: Hx Orthopedic Injury - Right shoulder, & broken left foot (many years ago) Sensory History: Reports: Hx Contacts or Glasses Denies: Hx Hearing Aid, Hx Hearing Problem Opthamlomology History: Reports: Hx Contacts or Glasses Psychiatric History: Denies: Hx Panic Disorder - Cancer History Cancer Type, 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 - Surgical History Surgery Procedure, Year, and Place: PROSTATECTOMY,Tonsilectomy Infectious Disease History: No Infectious Disease History: Denies: Hx Clostridium Difficile, Hx Hepatitis, Hx Human Immunodeficiency Virus (HIV), Hx of Known/Suspected MRSA, Hx Shingles, Hx Tuberculosis, Hx Known/ Suspected VRE, Hx Known/Suspected VRSA, History Other Infectious Disease, Traveled Outside the [place] in Last 30 Days - Family History Known Family History: Positive: Hypertension - Social History Alcohol Use: None Hx Substance Use: No Substance Use Type: Reports: None Hx Tobacco Use: No Smoking Status (MU): Former Smoker Type: Cigarettes Amount Used/How Often: 30 +years Review of Systems Negative: Fever, Chills Negative: Erythema Negative: Sore Throat Negative: Chest Pain Positive: Cough. Negative: Shortness Of Breath Negative: Abdominal Pain, Vomiting, Nausea Negative: dysuria, hematuria Positive: Edema - in lower extremities. , Other - Weakness in lower extremities. . Negative: Myalgia Negative: Rash Neurological: Other - No dizziness. All Other Systems Reviewed And Are Negative: Yes Physical Exam - Summary Physical Exam Summary: Constitutional: Well-developed, Well-nourished, Alert. (-) Distressed Skin: Warm, Dry HENT: Normocephalic; Atraumatic Eyes: Conjunctiva normal Neck: Musculoskeletal ROM normal neck. (-) JVD, (-) Stridor, (-) Tracheal deviation Cardio: Rhythm regular, rate normal, Heart sounds normal; Intact distal pulses; The pedal pulses are 2+ and symmetric. Radial pulses are 2+ and symmetric. (-) Murmur Pulmonary/Chest wall: Rhonchi in right lower field. Abd: Soft, (-) Tenderness, (-) Distension, (-) Guarding, (-) Rebound Musculoskeletal: (-) Edema Lymph: (-) Cervical adenopathy Neuro: Alert, Oriented x3 Psych: Mood and affect Normal Triage Information Reviewed: Yes Vital Signs On Initial Exam: Initial Vitals Temp Pulse Resp BP Pulse Ox 98.8 F 106 24 158/90 94 12/04/16 07:43 12/04/16 07:43 12/04/16 07:43 12/04/16 07:43 12/04/16 07:43 Vital Signs Reviewed: Yes - [place] Coma Scale Coma Scale Total: 15 Diagnostics - Vital Signs Vital Signs Temp Pulse Resp BP Pulse Ox 12/04/16 07:43 98.8 F 106 24 158/90 94 - Laboratory Result Diagrams: 12/04/16 08:25 12/04/16 08:25 Lab Statement: Any lab studies that have been ordered have been reviewed, and results considered in the medical decision making process. - Radiology CXR Radiology Interpretation Completed By: Radiologist - IMPRESSION: New LEFT basilar infiltrate most consistent with pneumonia. Flu Symptom Course/Dx - Course Course Of Treatment: Pt c/o flu-like sx. CXR most consistent with PNA. he was given Ciprofloxacin, Ceftriaxone, Albuterol, and Azithromycin in the ED. - Diagnoses Provider Diagnoses: Hypoxemia, Healthcare-associated pneumonia, Influenza pneumonia Critical Care Time: 30-74 min - 35 minutes. Discharge - Discharge Plan Condition: Stable Disposition: ADMITTED TO [facility] documentation as recorded by the Nithin davis Salem accurately reflects the service I personally performed and the decisions made by Bryon orellana Jerry, MD.
[2016-12-05] MEDS: Oseltamivir CAP* 75 MG PO SCH ×2 (07:40→20:35)
[2016-12-05] MEDS: Apixaban* 5 MG TAB PO SCH ×2 (07:40→20:35)
[2016-12-05] MEDS: Montelukast Sodium TAB* 10 MG PO SCH (07:41)
[2016-12-05] MEDS: Atorvastatin* 20 MG TAB PO SCH (07:41)
[2016-12-05] MEDS: amLODIPine TAB* 5 MG PO SCH (07:41)
[2016-12-05] MEDS: Metoprolol Succinate XL TAB* 25 MG PO SCH (07:42)
[2016-12-05] MEDS: guaiFENesin ER TAB 600 MG PO SCH ×2 (07:42→20:35)
[2016-12-05] MEDS: Nystatin SUSPENSION* 100000 UNITS/ML 5 ML UDC PO SCH ×4 (07:42→20:35)
[2016-12-05] MEDS ORDERED: methylPREDNISolone SOD SUCC* 40 MG/ML VIAL IV SCH (09:00)
[2016-12-05] MEDS ORDERED: Spiriva Inhaler DEVICE* 1 EACH DEVICE INH ONE (09:00)
--- NOTE | 2016-12-05 10:13 | PN ---
Subjective Date of Service: 12/05/16 Interval History: Mod amount light sputum, no change. Less SOB today. Feels better since IV methylprednisolone yesterday. Walked in the [place] yesterday with O2 tank. Objective Active Medications: Acetaminophen (Tylenol Tab*) 650 mg PO Q6H PRN PRN Reason: pain/fever Albuterol (Ventolin 2.5 Mg/3 Ml Neb.Mariella*) 2.5 mg INH Q4H PRN PRN Reason: SOB/WHEEZING Last Admin: 12/04/16 10:24 Dose: 2.5 mg Albuterol (Ventolin 2.5 Mg/3 Ml Neb.Mariella*) 2.5 mg INH Q4H PRN PRN Reason: WHEEZING Albuterol (Ventolin Hfa Inhaler*) 2 puff INH Q4H PRN PRN Reason: SHORTNESS OF BREATH Last Admin: 12/04/16 20:09 Dose: 2 puff Amlodipine Besylate (Norvasc Tab*) 10 mg PO DAILY [facility] Last Admin: 12/05/16 07:41 Dose: 10 mg Apixaban (Eliquis*) 5 mg PO BID [facility] Last Admin: 12/05/16 07:40 Dose: 5 mg Atorvastatin Calcium (Lipitor*) 20 mg PO DAILY [facility] Last Admin: 12/05/16 07:41 Dose: 20 mg Guaifenesin (Mucinex*) 600 mg PO BID [facility] Last Admin: 12/05/16 07:42 Dose: 600 mg Levofloxacin/Dextrose (Levaquin 750 Mg Ivpremix(*)) 750 mg in 150 mls @ 100 mls /hr IVPB Q24H [facility] Last Admin: 12/04/16 12:55 Dose: 100 mls/hr Metoprolol Succinate (Toprol Xl Tab*) 12.5 mg PO DAILY [facility] Last Admin: 12/05/16 07:42 Dose: 12.5 mg Mometasone Furoate/Formoterol Fumar (Dulera 200/5 Mdi*) 2 puff INH BID [facility] PRN Reason: Protocol Last Admin: 12/04/16 20:10 Dose: 2 puff Montelukast Sodium (Singulair Tab*) 10 mg PO DAILY [facility] Last Admin: 12/05/16 07:41 Dose: 10 mg Nystatin (Nystatin Suspension*) 100,000 units PO QID [facility] Last Admin: 12/05/16 07:42 Dose: 100,000 units Oseltamivir Phosphate (Tamiflu Cap*) 75 mg PO BID [facility] Stop: 12/09/16 09:01 Last Admin: 12/05/16 07:40 Dose: 75 mg Prednisone (Deltasone Tab*) 20 mg PO BID [facility] Tiotropium [place] (Spiriva Cap.Inh*) 1 cap INH DAILY [facility] Vital Signs 12/04/16 12/04/16 12/04/16 10:27 10:29 10:30 Temperature 99.0 F Pulse Rate 103 103 103 Respiratory 18 18 17 Rate Blood Pressure 131/85 146/93 (mmHg) O2 Sat by Pulse 92 95 Oximetry 12/04/16 12/04/16 12/04/16 10:32 11:00 11:30 Temperature 97.5 F Pulse Rate 104 104 104 Respiratory 20 16 20 Rate Blood Pressure 141/78 120/79 137/80 (mmHg) O2 Sat by Pulse 92 95 93 Oximetry 12/04/16 12/04/16 12/04/16 15:59 19:10 20:00 Temperature 97.2 F 98.0 F Pulse Rate 107 106 96 Respiratory 20 19 20 Rate Blood Pressure 142/70 151/77 (mmHg) O2 Sat by Pulse 95 94 98 Oximetry 12/05/16 12/05/16 12/05/16 00:19 04:13 06:57 Temperature 98.2 F 97.3 F Pulse Rate 90 83 Respiratory 16 20 20 Rate Blood Pressure 142/74 135/78 (mmHg) O2 Sat by Pulse 96 97 Oximetry 12/05/16 07:48 Temperature 97.8 F Pulse Rate 93 Respiratory 16 Rate Blood Pressure 146/79 (mmHg) O2 Sat by Pulse 97 Oximetry Oxygen Devices in Use Now: None Appearance: Alert, in a chair. In good spirits. Looks comfortable. Eyes: No Scleral Icterus Ears/Nose/Mouth/Throat: Clear Oropharnyx, Mucous Membranes Moist Neck: NL Appearance and Movements; NL JVP, No Thyroid Enlargement, Masses Respiratory: Symmetrical Chest Expansion and Respiratory Effort, Clear to Auscultation, Clear to Percussion Cardiovascular: NL Sounds; No Murmurs; No JVD, RRR, No Edema, - Extremities: No Edema, No Clubbing, Cyanosis, - Skin: No Rash or Ulcers, No Nodules or Sclerosis, - Neurological: Alert and Oriented x 3, NL Sensation Result Diagrams: 12/05/16 05:14 12/05/16 05:14 Microbiology and Other Data: Microbiology 12/04/16 16:15 Legionella Urinary Antigen - Final Urine Negative Legionella Streptococcus pneumoniae Ag Screen - Final Negative S. pneumo Antigen 12/04/16 14:33 Influenza Types A,B Antigen (KALEB) - Final Nasal Specimen received for Influenza A/B Molecular testing Assess/Plan/Problems-Billing Assessment: - Patient Problems (1) COPD exacerbation Current Visit: No Status: Acute Code(s): J44.1 - CHRONIC OBSTRUCTIVE PULMONARY DISEASE W (ACUTE) EXACERBATION SNOMED Code(s): 988162141 Comment: Prednisone taper. (2) Pneumonia Current Visit: No Status: Acute Code(s): J18.9 - PNEUMONIA, UNSPECIFIED ORGANISM SNOMED Code(s): 369621847 Comment: Completed the planned 14 day course of TMP-SMX. Continue IV levofloxacin. (3) Atrial fibrillation Current Visit: No Status: Acute Code(s): I48.91 - UNSPECIFIED ATRIAL FIBRILLATION SNOMED Code(s): 47157215 Comment: Continue metoprolol, apixaban. (4) COPD (chronic obstructive pulmonary disease) Current Visit: No Status: Chronic Code(s): J44.9 - CHRONIC OBSTRUCTIVE PULMONARY DISEASE, UNSPECIFIED SNOMED Code(s): 53805070 Comment: Continue montelukast, albuterol. Seems to repsonds to steroids well. Start prennisone 20 mg bid 12/05/16, plan budesonide in home neb on discharge. (5) HLD (hyperlipidemia) Current Visit: No Status: Chronic Code(s): E78.5 - HYPERLIPIDEMIA, UNSPECIFIED SNOMED Code(s): 61664952 Comment: Med rec pending (6) HTN (hypertension) Current Visit: No Status: Chronic Code(s): I10 - ESSENTIAL (PRIMARY) HYPERTENSION SNOMED Code(s): 02300488 Comment: Conitnue atorvastatin.
[2016-12-05] MEDS: Tiotropium CAP.INH* CAP.INH/18 MCG INH SCH (10:26)
[2016-12-05] MEDS: Albuterol HFA INHALER* 8 gm MDI INH PRN (10:28)
[2016-12-05] MEDS: Mometasone/Formoter 200/5 MDI INH SCH ×2 (10:28→19:43)
[2016-12-05] MEDS: Levofloxacin 750 MG IVPREMIX(* 750 MG/150 ML BAG IVPB SCH (11:18)
[2016-12-05] MEDS: Albuterol 2.5 MG/3 ML NEB.SOL* (0.083%) INH PRN ×2 (15:41→19:43)
--- NOTE | 2016-12-05 16:17 | PN ---
Progress Note - Progress Note Note: Pt seen and examined at bedside. Pt sitting up in chair. [place] lot better after steroids. Had ambulated this am and became SOB. Active Medications Generic Name Dose Route Start Last Admin Trade Name Freq PRN Reason Stop Dose Admin Acetaminophen 650 mg 12/04/16 11:31 Tylenol Tab* PO Q6H PRN pain/fever Albuterol 2.5 mg 12/04/16 09:45 12/05/16 15:41 Ventolin 2.5 Mg/3 Ml Neb.Mariella* INH 2.5 mg Q4H PRN Administration SOB/WHEEZING Albuterol 2.5 mg 12/04/16 11:28 Ventolin 2.5 Mg/3 Ml Neb.Mariella* INH Q4H PRN WHEEZING Albuterol 2 puff 12/04/16 11:28 12/05/16 10:28 Ventolin Hfa Inhaler* INH 2 puff Q4H PRN Administration SHORTNESS OF BREATH Amlodipine Besylate 10 mg 12/05/16 09:00 12/05/16 07:41 Norvasc Tab* PO 10 mg DAILY SHAUNA Administration Apixaban 5 mg 12/04/16 21:00 12/05/16 07:40 Eliquis* PO 5 mg BID SHAUNA Administration Atorvastatin Calcium 20 mg 12/05/16 09:00 12/05/16 07:41 Lipitor* PO 20 mg DAILY SHAUNA Administration Guaifenesin 600 mg 12/04/16 21:00 12/05/16 07:42 Mucinex* PO 600 mg BID SHAUNA Administration Levofloxacin/Dextrose 750 mg in 150 mls @ 100 mls/hr 12/04/16 12:00 12/05/16 11:18 Levaquin 750 Mg Ivpremix(*) IVPB 100 mls/hr Q24H SHAUNA Administration Metoprolol Succinate 12.5 mg 12/05/16 09:00 12/05/16 07:42 Toprol Xl Tab* PO 12.5 mg DAILY SHAUNA Administration Mometasone Furoate/Formoterol Fumar 2 puff 12/04/16 21:00 12/05/16 10:28 Dulera 200/5 Mdi* INH 2 puff BID SHAUNA Administration Protocol Montelukast Sodium 10 mg 12/05/16 09:00 12/05/16 07:41 Singulair Tab* PO 10 mg DAILY SHAUNA Administration Nystatin 100,000 units 12/04/16 13:00 12/05/16 11:56 Nystatin Suspension* PO 100,000 units QID SHAUNA Administration Oseltamivir Phosphate 75 mg 12/04/16 18:15 12/05/16 07:40 Tamiflu Cap* PO 12/09/16 09:01 75 mg BID SHAUNA Administration Prednisone 20 mg 12/05/16 21:00 Deltasone Tab* PO BID SHAUNA Tiotropium [place] 1 cap 12/05/16 09:00 12/05/16 10:26 Spiriva Cap.Inh* INH Not Given DAILY SHAUNA Vital Signs Temp Pulse Resp BP Pulse Ox 98.5 F 90 22 133/70 97 12/05/16 15:20 12/05/16 15:42 12/05/16 15:20 12/05/16 15:20 12/05/16 15:42 Gen: Pt in NAD HEENT: No Scleral Icterus, Clear Oropharnyx, Mucous Membranes Moist Neck: NL Appearance and Movements; NL JVP, No Thyroid Enlargement, Masses Respiratory: Symmetrical Chest Expansion and Respiratory Effort, Clear to Auscultation, Clear to Percussion Cardiovascular: NL Sounds; No Murmurs; No JVD, RRR, No Edema Extremities: No Edema, No Clubbing, Cyanosis Skin: No Rash or Ulcers, No Nodules or Sclerosis Neurological: Alert and Oriented x 3, NL Sensation Laboratory Results - last 24 hr 12/04/16 12/05/16 12/05/16 13:56 05:14 05:14 WBC 18.8 H RBC 4.39 Hgb 13.4 L Hct 40 L MCV 91 MCH 31 MCHC 34 RDW 15 Plt Count 216 MPV 8 Neut % (Auto) 93.5 H Lymph % (Auto) 1.3 L [place] % (Auto) 5.0 Eos % (Auto) 0.1 Baso % (Auto) 0.1 Absolute Neuts (auto) 17.6 H Absolute Lymphs (auto) 0.2 L Absolute Monos (auto) 0.9 H Absolute Eos (auto) 0 Absolute Basos (auto) 0 Absolute Nucleated RBC 0.01 Nucleated RBC % 0 Sodium 126 L Potassium 4.2 Chloride 96 L Carbon Dioxide 26 Anion Gap 4 BUN 19 Creatinine 0.54 L Est GFR ( Amer) 193.4 Est GFR (Non-Af Amer) 150.4 BUN/Creatinine Ratio 35.2 H Glucose 161 H Calcium 8.8 Influenza A (Rapid) Positive H Influenza B (Rapid) Negative 12/05/16 05:14 Microbiology and Other Data: Microbiology 12/04/16 16:15 Legionella Urinary Antigen - Final Urine Negative Legionella Streptococcus pneumoniae Ag Screen - Final Negative S. pneumo Antigen 12/04/16 14:33 Influenza Types A,B Antigen (KALEB) - Final Nasal Specimen received for Influenza A/B Molecular testing I/R: 71 y o m with h/o emphysema, recurrent bronchitis, recent admission for PNA , Influenza with worsening SOB and new opacity in LLL Sputum cx only grew mold Improved with steroids and Levaquin SOB improved until he ambulated today c/w bronchodilators, O2 Reassess O2 needs prior to d/c Will schedule for bronch next week as he is still wheezing c/w steroids D/w Dr Asencio
[2016-12-05] MEDS: predniSONE TAB* 20 MG PO SCH (20:35)
[2016-12-06] MEDS: Albuterol 2.5 MG/3 ML NEB.SOL* (0.083%) INH PRN ×4 (06:06→20:29)
[2016-12-06] MEDS: predniSONE TAB* 20 MG PO SCH ×2 (07:48→20:48)
[2016-12-06] MEDS: Metoprolol Succinate XL TAB* 25 MG PO SCH (07:48)
[2016-12-06] MEDS: amLODIPine TAB* 5 MG PO SCH (07:48)
[2016-12-06] MEDS: Atorvastatin* 20 MG TAB PO SCH (07:48)
[2016-12-06] MEDS: Montelukast Sodium TAB* 10 MG PO SCH (07:49)
[2016-12-06] MEDS: guaiFENesin ER TAB 600 MG PO SCH ×2 (07:49→20:46)
[2016-12-06] MEDS: Nystatin SUSPENSION* 100000 UNITS/ML 5 ML UDC PO SCH ×4 (07:49→20:48)
[2016-12-06] MEDS: Oseltamivir CAP* 75 MG PO SCH ×2 (07:49→20:47)
[2016-12-06] MEDS: Apixaban* 5 MG TAB PO SCH ×2 (07:52→20:46)
[2016-12-06] MEDS: Mometasone/Formoter 200/5 MDI INH SCH ×2 (09:32→20:29)
[2016-12-06] MEDS: Tiotropium CAP.INH* CAP.INH/18 MCG INH SCH (09:33)
--- NOTE | 2016-12-06 09:43 | DCNOTE ---
Subjective Date of Service: 12/06/16 Interval History: Still has mod amt light yellow sputum, no change. No change GALVEZ, walks short distances in the [place] No new c/o. Objective Active Medications: Acetaminophen (Tylenol Tab*) 650 mg PO Q6H PRN PRN Reason: pain/fever Albuterol (Ventolin 2.5 Mg/3 Ml Neb.Mariella*) 2.5 mg INH Q4H PRN PRN Reason: SOB/WHEEZING Last Admin: 12/06/16 09:32 Dose: 2.5 mg Albuterol (Ventolin 2.5 Mg/3 Ml Neb.Mariella*) 2.5 mg INH Q4H PRN PRN Reason: WHEEZING Albuterol (Ventolin Hfa Inhaler*) 2 puff INH Q4H PRN PRN Reason: SHORTNESS OF BREATH Last Admin: 12/05/16 10:28 Dose: 2 puff Amlodipine Besylate (Norvasc Tab*) 10 mg PO DAILY [facility] Last Admin: 12/06/16 07:48 Dose: 10 mg Apixaban (Eliquis*) 5 mg PO BID [facility] Last Admin: 12/06/16 07:52 Dose: 5 mg Atorvastatin Calcium (Lipitor*) 20 mg PO DAILY [facility] Last Admin: 12/06/16 07:48 Dose: 20 mg Guaifenesin (Mucinex*) 600 mg PO BID [facility] Last Admin: 12/06/16 07:49 Dose: 600 mg Levofloxacin/Dextrose (Levaquin 750 Mg Ivpremix(*)) 750 mg in 150 mls @ 100 mls /hr IVPB Q24H [facility] Last Admin: 12/05/16 11:18 Dose: 100 mls/hr Metoprolol Succinate (Toprol Xl Tab*) 12.5 mg PO DAILY [facility] Last Admin: 12/06/16 07:48 Dose: 12.5 mg Mometasone Furoate/Formoterol Fumar (Dulera 200/5 Mdi*) 2 puff INH BID [facility] PRN Reason: Protocol Last Admin: 12/06/16 09:32 Dose: 2 puff Montelukast Sodium (Singulair Tab*) 10 mg PO DAILY [facility] Last Admin: 12/06/16 07:49 Dose: 10 mg Nystatin (Nystatin Suspension*) 100,000 units PO QID [facility] Last Admin: 12/06/16 07:49 Dose: 100,000 units Oseltamivir Phosphate (Tamiflu Cap*) 75 mg PO BID [facility] Stop: 12/09/16 09:01 Last Admin: 12/06/16 07:49 Dose: 75 mg Prednisone (Deltasone Tab*) 20 mg PO BID [facility] Last Admin: 12/06/16 07:48 Dose: 20 mg Tiotropium [place] (Spiriva Cap.Inh*) 1 cap INH DAILY [facility] Last Admin: 12/06/16 09:33 Dose: 1 cap Vital Signs 12/05/16 12/05/16 12/05/16 10:29 10:31 10:32 Temperature Pulse Rate 93 95 99 Respiratory 16 18 20 Rate Blood Pressure (mmHg) O2 Sat by Pulse 97 96 96 Oximetry 12/05/16 12/05/16 12/05/16 11:43 12:01 15:20 Temperature 97.6 F 98.5 F Pulse Rate 95 95 Respiratory 18 18 22 Rate Blood Pressure 128/59 133/70 (mmHg) O2 Sat by Pulse 89 98 Oximetry 12/05/16 12/05/16 12/05/16 15:42 19:43 20:00 Temperature Pulse Rate 90 94 Respiratory 19 Rate Blood Pressure (mmHg) O2 Sat by Pulse 97 96 Oximetry 12/05/16 12/06/16 12/06/16 23:56 06:06 06:34 Temperature 98.6 F Pulse Rate 83 78 Respiratory 16 18 Rate Blood Pressure 143/69 (mmHg) O2 Sat by Pulse 86 96 Oximetry 12/06/16 09:35 Temperature Pulse Rate 82 Respiratory 16 Rate Blood Pressure (mmHg) O2 Sat by Pulse 94 Oximetry Oxygen Devices in Use Now: None Appearance: Alert, in a chair. In good spirits. Looks comfortable. No cough during my visit. Eyes: No Scleral Icterus Neck: NL Appearance and Movements; NL JVP, No Thyroid Enlargement, Masses Respiratory: Symmetrical Chest Expansion and Respiratory Effort, Clear to Auscultation, Clear to Percussion Extremities: No Edema, No Clubbing, Cyanosis, - Skin: No Rash or Ulcers, No Nodules or Sclerosis, - Neurological: Alert and Oriented x 3, NL Sensation, - - Sl hesitant gait. Result Diagrams: 12/05/16 05:14 12/05/16 05:14 Microbiology and Other Data: Microbiology 12/04/16 16:15 Legionella Urinary Antigen - Final Urine Negative Legionella Streptococcus pneumoniae Ag Screen - Final Negative S. pneumo Antigen 12/04/16 14:33 Influenza Types A,B Antigen (KALEB) - Final Nasal Specimen received for Influenza A/B Molecular testing Assess/Plan/Problems-Billing Assessment: - Patient Problems (1) COPD exacerbation Current Visit: No Status: Acute Code(s): J44.1 - CHRONIC OBSTRUCTIVE PULMONARY DISEASE W (ACUTE) EXACERBATION SNOMED Code(s): 067736531 Comment: Continue prednisone at 20 mg bid at least until bronchoscopy. (2) Pneumonia Current Visit: No Status: Acute Code(s): J18.9 - PNEUMONIA, UNSPECIFIED ORGANISM SNOMED Code(s): 269467616 Comment: Completed the planned 14 day course of TMP-SMX. Continue IV levofloxacin through 12/07, then 500 mg po daily x 4 days. (3) Atrial fibrillation Current Visit: No Status: Acute Code(s): I48.91 - UNSPECIFIED ATRIAL FIBRILLATION SNOMED Code(s): 81380294 Comment: Continue metoprolol, apixaban. (4) COPD (chronic obstructive pulmonary disease) Current Visit: No Status: Chronic Code(s): J44.9 - CHRONIC OBSTRUCTIVE PULMONARY DISEASE, UNSPECIFIED SNOMED Code(s): 01803604 Comment: Continue montelukast, albuterol. Seems to repsonds to steroids well. Start prennisone 20 mg bid 12/05/16, plan budesonide in home neb on discharge. (5) HLD (hyperlipidemia) Current Visit: No Status: Chronic Code(s): E78.5 - HYPERLIPIDEMIA, UNSPECIFIED SNOMED Code(s): 20183026 Comment: Continue atorvastatin. (6) HTN (hypertension) Current Visit: No Status: Chronic Code(s): I10 - ESSENTIAL (PRIMARY) HYPERTENSION SNOMED Code(s): 96450061 Comment: Conitnue atorvastatin. (7) Hyponatremia Current Visit: No Status: Acute Code(s): E87.1 - HYPO-OSMOLALITY AND HYPONATREMIA SNOMED Code(s): 66307667 Comment: Stable. Recorded oral intake is low. Fup with Dr. Garcia. (8) Hypoxia Current Visit: Yes Status: Acute Code(s): R09.02 - HYPOXEMIA SNOMED Code(s ): 916693742 Comment: O2 sat by me with walking 88%. O2 sat by staff during night 88%. Home O2 arranged. Status and Disposition: Plan discharge 12/07/16. Fup Jhonatan Mccarthy
--- NOTE | 2016-12-06 09:48 | PN ---
Progress Note - Progress Note Note: Time spent on discharge 50 minutes.
[2016-12-06] MEDS: Levofloxacin 750 MG IVPREMIX(* 750 MG/150 ML BAG IVPB SCH (10:59)
--- NOTE | 2016-12-07 03:06 | DS ---
CC: Dr. Garcia; Dr. Israel DISCHARGE SUMMARY: DATE OF ADMISSION: DATE OF DISCHARGE: 12/07/16 HOSPITAL COURSE: This 71-year-old man presented with shortness of breath, has a history of COPD and pneumonia. He was treated for Achromobacter pneumonia with 14 days of trimethoprim and sulfamethoxazole, which he completed. He was diagnosed with influenza A and initially was not treated as he was felt that to be outside of the window. Later, he had persistent positive influenza A testing likely due to presence of inert virus; but in any event because of his complicated pulmonary situation, he was given a course of oseltamivir which he will finish on the evening of 12/06/16. The patient was treated on this admission with levofloxacin. Dr. Israel saw him in consultation and is planning on outpatient bronchoscopy. He had little wheezing when his prednisone was tapered. He seemed to respond quite well to a moderate dose of prednisone in terms of resolution of his wheezing. He is clinically stable. On 12/06/16 with walking in the [place], his O2 sat on room air fell to 88%. It was noted during the night, his O2 sat was 88% without oxygen. Also, he will have home oxygen arranged as well. FINAL DIAGNOSES: 1. Chronic obstructive pulmonary disease exacerbation. 2. Pneumonia. 3. Atrial fibrillation. 4. Hyperlipidemia. 5. Hypertension. 6. Hyponatremia. DISCHARGE MEDICATIONS: 1. Prednisone 20 mg b.i.d. 2. Levofloxacin 500 mg daily for 4 days. 3. Budesonide formoterol 2 puffs b.i.d. 4. Tiotropium 1 daily. 5. Montelukast 10 mg daily. 6. Albuterol inhaler 2 puffs every 4 hours p.r.n. 7. Apixaban 5 mg b.i.d. 8. Metoprolol succinate 12.5 mg daily. 9. Guaifenesin ER 600 mg b.i.d. 10. Albuterol 2.5 mg by inhalation every 4 hours p.r.n. 11. Amlodipine 10 daily. 12. Atorvastatin 20 mg daily. 13. Ibuprofen 400 mg every 6 hours p.r.n. [id number]/[facility] #: [id number] [facility]
--- NOTE | 2016-12-07 03:06 | DS ---
DISCHARGE SUMMARY: DATE OF ADMISSION: DATE OF DISCHARGE: ADDENDUM: DISCHARGE MEDICATIONS: Nystatin oral suspension 100,000 units q.i.d. [id number]/[facility] #: [id number] [facility]
[2016-12-07 07:40] VITALS: BP 140/75
[2016-12-07] MEDS: Metoprolol Succinate XL TAB* 25 MG PO SCH (07:40)
[2016-12-07] MEDS: Montelukast Sodium TAB* 10 MG PO SCH (07:40)
[2016-12-07] MEDS: amLODIPine TAB* 5 MG PO SCH (07:40)
[2016-12-07] MEDS: predniSONE TAB* 20 MG PO SCH (07:40)
[2016-12-07] MEDS: guaiFENesin ER TAB 600 MG PO SCH (07:40)
[2016-12-07] MEDS: Apixaban* 5 MG TAB PO SCH (07:40)
[2016-12-07] MEDS: Atorvastatin* 20 MG TAB PO SCH (07:40)
[2016-12-07] MEDS: Oseltamivir CAP* 75 MG PO SCH (07:40)
[2016-12-07] MEDS: Nystatin SUSPENSION* 100000 UNITS/ML 5 ML UDC PO SCH (07:41)
[2016-12-07] MEDS: Levofloxacin 750 MG IVPREMIX(* 750 MG/150 ML BAG IVPB SCH (07:43)
== END 2016-12-07 09:40 | disposition home or self-care (01) | DRG 871 ==
LOC: ED 07:37 → MEDTELE 09:43 → OBSVTOIN 12-05 10:05
PROVIDERS: ADMIT Internal Medicine; ATTEND Internal Medicine
DX: A41.9 Sepsis, unspecified organism (principal); J15.6 Pneumonia due to other Gram-negative bacteria; I50.30 Unspecified diastolic (congestive) heart failure; C61 Malignant neoplasm of prostate; E87.1 Hypo-osmolality and hyponatremia; I48.91 Unspecified atrial fibrillation; J44.1 Chronic obstructive pulmonary disease with (acute) exacerbation; E78.5 Hyperlipidemia, unspecified; I10 Essential (primary) hypertension; Z79.01 Long term (current) use of anticoagulants; Z79.1 Long term (current) use of non-steroidal anti-inflammatories (NSAID); Z79.52 Long term (current) use of systemic steroids; Z79.899 Other long term (current) drug therapy; Z88.8 Allergy status to other drugs, medicaments and biological substances; Z82.3 Family history of stroke; Z87.891 Personal history of nicotine dependence
CPT/HCPCS: 36415; 71010; 80048; 80053; 83605; 84484; 85025; 87040; 87070; 87107; 87205; 87502; 87899; 93005; 94640; 94760; A9270-GY; G0378; J0456; J0696; J0744; J2920; J2930; J7512

== ENCOUNTER 2016-12-09 20:35 | Inpatient (IN) | payer MEDICARE ==
[2016-12-09 21:56] LABS: Hematocrit 25 % (42-52); Hemoglobin 8.3 g/dl (14.0-18.0); Mean Corpuscular HGB Conc 33 g/dl (31-36); Mean Corpuscular Hemoglobin 31 pg (27-31); Mean Corpuscular Volume 92 fL (80-94); Mean Platelet Volume 8 um3 (7.4-10.4); Red Blood Count 2.71 10^6/ul (4.0-5.4); Red Cell Distribution Width 14 % (10.5-15); White Blood Count 26.2 10^3/ul (3.5-10.8)
[2016-12-09 21:57] LABS: Add Diff/Slide Review? Slide Review Added; Comments Flag Yes
[2016-12-09 22:16] LABS: Albumin 2.7 g/dL (3.2-5.2); BUN/Creatinine Ratio 64.8 (8-20); Calcium 8.5 mg/dL (8.6-10.3); EGFR African American 73.4 (>60); EGFR Non-African American 57.1 (>60); Globulin 2.6 g/dL (2-4); Potassium 4.9 mmol/L (3.5-5.0); Total Bilirubin 0.4 mg/dL (0.2-1.0); Total Protein 5.3 g/dL (6.4-8.9); Troponin I 0.06 ng/mL (<0.04)
--- NOTE | 2016-12-09 22:27 | RAD ---
INDICATION: Shortness of breath. COMPARISON: Most recent comparison chest x-rays dated December 04, 2016 TECHNIQUE: PA and lateral views of the chest were obtained. FINDINGS: The heart and mediastinum are normal in size and contour. Similar the previous chest x-ray there is infiltrate at the lateral aspect of the left lung base localized to the left upper lobe on the lateral chest x-ray. This area of infiltrate appears larger when compared to the previous chest x-ray. Elsewhere the lungs are adequately aerated. There is no evidence of large pleural effusion. Visualized bones are normal for the patient's age. There is no radiographic evidence of free air beneath the diaphragm IMPRESSION: THERE IS BEEN APPARENT INTERVAL INCREASE IN THE SIZE OF THE LEFT UPPER LOBE PNEUMONIA RELATIVE TO THE DECEMBER 04, 2016 CHEST X-RAY.
[2016-12-09 22:31] LABS: Immature Granulocytes 8 % (0-9); Metamyelocytes % 3 % (0-2); Myelocytes % 4 % (0-1); Neutrophil % 82 % (38-83)
[2016-12-09 22:32] LABS: Toxic Granulation 2+
[2016-12-10] MEDS ORDERED: Albuterol HFA INHALER* 8 gm MDI INH PRN (00:25)
[2016-12-10] MEDS ORDERED: Albuterol 2.5 MG/3 ML NEB.SOL* (0.083%) INH PRN (00:25)
[2016-12-10] MEDS ORDERED: Furosemide IV* 10 MG/ML VIAL (40 MG) IV SLOW PU ONE ×2 (00:30→00:49)
[2016-12-10] MEDS ORDERED: Vancomycin per Pharmacy* NOTE FOLLOW UP PRN (00:53)
[2016-12-10] MEDS ORDERED: Diltiazem IV VIAL* 125 MG in D5W 100 ML BAG* 100 ML IV SCH (01:00)
[2016-12-10] MEDS ORDERED: Vancomycin(*) 1,000 MG in NS 0.9% 250 ML* 250 ML IVPB ONE (01:00)
--- NOTE | 2016-12-10 05:00 | HP ---
HISTORY AND PHYSICAL: DATE OF ADMISSION: 12/10/16 PRIMARY CARE PHYSICIAN: Dr. Jelly Garcia. CHIEF COMPLAINT: Shortness of breath. HISTORY OF PRESENT ILLNESS: The patient is a 71-year-old gentleman recently discharged from [facility] for pneumonia who presents today with increasing shortness of breath. He said yesterday when he got home, he felt great, had a good day, and no complaints. He denied anything unusual in his diet. He took his medications as directed. However today, he woke up feeling quite exhausted and fatigued. Even the slightest motion would make him short of breath. He had felt he had chest congestion. He had a cough that he thought he wanted to bring something up and nothing would come up. He denies any recent weight gain. His stomach does get bigger on the prednisone, however. He is normally quite active, but not lately. He does not usually use oxygen at home and did not yesterday, but needed it today. He denies any increased wheezing. His legs feel weak the last month or so. In the ER, the patient was evaluated. His chest x-ray showed a possible increase in the size of the pneumonia, but he was also in rapid atrial fibrillation. PAST MEDICAL HISTORY: Noted for recent admission for left upper lobe pneumonia , COPD, hypertension, hyperlipidemia, atrial fibrillation, prostate cancer, status post prostatectomy, multiple admissions for COPD exacerbation, pneumonia , and also recent influenza A. CURRENT MEDICATIONS: 1. Albuterol inhaler 2 puffs every 4 hours as needed. 2. Albuterol nebulizer 2.5 mg every 4 hours as needed. 3. Levaquin 500 mg daily. He is supposed to take that for 4 more days. 4. Ibuprofen 400 mg every 6 hours as needed. 5. Symbicort 160/4.5 two puffs twice daily. 6. Lipitor 20 mg daily. 7. Eliquis 5 mg twice daily. 8. Amlodipine 10 mg daily. 9. Spiriva 1 inhalation daily. 10. Nystatin suspension 100,000 units 4 times a day. 11. Singulair 10 mg daily. 12. Metoprolol succinate 12.5 mg daily. 13. Prednisone 20 mg twice daily. 14. Guaifenesin ER 600 mg twice daily. ALLERGIES: He has allergy/adverse reaction to SIMVASTATIN in which he had elevated LFTs. FAMILY HISTORY: Notable for father, who had a CVA. SOCIAL HISTORY: Ex-tobacco. No history of alcohol use or recreational drug use. He lives with his , Lynnette Celis, who is also his healthcare proxy. Her phone number is [phone]. REVIEW OF SYSTEMS: A 14-point review of systems was completed with the patient. All pertinent positives and negatives are in the history of present illness, otherwise it is negative. PHYSICAL EXAMINATION GENERAL: He is a very pleasant gentleman, lying in bed, not tachypneic, but says he gets so if he sits up. VITAL SIGNS: Temperature 97.9 degrees, heart rate 113 beats per minute, respiratory rate 28 breaths per minute, pulse ox 98%, blood pressure 128/77. HEENT: Normocephalic, atraumatic. Pupils equal, round, and reactive to light. Moist Mucous membranes. NECK: Supple. No JVD, bruits, palpable thyroid, or lymphadenopathy. CHEST: Diminished breath sounds, but clear to auscultation. CARDIOVASCULAR: S1, S2 appreciated. Increased rate, irregularly irregular rhythm. ABDOMEN: Positive bowel sounds in all 4 quadrants. Soft, nontender, nondistended. EXTREMITIES: No cyanosis or clubbing. He has got bilateral edema. NEURO: Alert and oriented x3. Moves all extremities. SKIN: No distinct rashes or abnormalities. DIAGNOSTIC STUDIES/LAB DATA: His INR is 1.55, white count 76.2, which is up from his one when he was discharged, hemoglobin 8.3, hematocrit 25, platelet count 221. Sodium 131, potassium 4.9, chloride 96, CO2 27, BUN 81, creatinine 1.25, lactic acid is 3.6, troponin 0.06, BNP is 104. Chest x-ray was interpreted by Radiology as there has been interval increase in the size of the left upper lobe pneumonia relative to 12/04/16 chest x-ray. EKG shows sinus tachycardia at a rate of 113 beats per minute. ASSESSMENT AND PLAN: 1. Shortness of breath. It is confusing to me exactly what is causing this. It should be noted his anemia is new found and this may be contributing to it. He has no complaints of a GI bleed, but he is on Eliquis and certainly it is on the differential. Only 5 days ago, his hemoglobin was 17.4. I will recheck it , but I will transfuse him with his symptoms. He also looks like he is in sinus tach versus rapid atrial fibrillation. I will place him on a Cardizem drip for now until we can get his rate under control, which also may help. He may also have pneumonia and I will continue his Levaquin. I will add a dose of vancomycin because he was just in the hospital and watch him closely. I will check a sputum for C and S, urine for Legionella and pneumococcal antigen. Dr. Israel was supposed to see him as an outpatient. I think calling her tomorrow and getting a Pulmonary consult would be beneficial. 2. Atrial fibrillation, see above. We will place on Cardizem drip. Continue Eliquis. 3. COPD. Continue prednisone. He is on a taper. I Solu-Medrol, he is not wheezing. 4. Hypertension, adequate control. Continue current regimen. 5. DVT prophylaxis, on Eliquis. 6. FEN. Regular diet. 7. The patient is a full code. TIME SPENT: Over 75 minutes were spent on this H and P; more than 40 minutes of which was spent in direct [id number] contact with the patient in evaluation , physical exam, counseling, and coordination of care. CC: Dr. Jelly Garcia; Dr. Israel, urology nurse* [id number]/[facility] #: [id number] NIKKY
[2016-12-10] MEDS: Mometasone/Formoter 200/5 MDI INH SCH ×2 (08:02→20:01)
[2016-12-10] MEDS: Tiotropium CAP.INH* CAP.INH/18 MCG INH SCH (08:02)
[2016-12-10] MEDS ORDERED: Spiriva Inhaler DEVICE* 1 EACH DEVICE INH ONE (09:00)
[2016-12-10] MEDS ORDERED: Apixaban* 5 MG TAB PO SCH (09:00)
[2016-12-10] MEDS ORDERED: Vancomycin(*) 1,000 MG in NS 0.9% 250 ML* 250 ML IVPB SCH (10:00)
[2016-12-10] MEDS: Levofloxacin TAB* 500 MG PO SCH (10:01)
[2016-12-10] MEDS: predniSONE TAB* 20 MG PO SCH ×2 (10:02→20:44)
[2016-12-10] MEDS: Nystatin SUSPENSION* 100000 UNITS/ML 5 ML UDC PO SCH ×4 (10:02→20:44)
[2016-12-10] MEDS: amLODIPine TAB* 5 MG PO SCH (10:02)
[2016-12-10] MEDS: Atorvastatin* 20 MG TAB PO SCH (10:02)
[2016-12-10] MEDS: guaiFENesin ER TAB 600 MG PO SCH ×2 (10:03→20:44)
[2016-12-10 10:55] LABS: EGFR Non-African American 66.9 (>60)
--- NOTE | 2016-12-10 11:11 | PN ---
Subjective Date of Service: 12/10/16 Interval History: Patient seen this morning, present. Says he is maybe feeling slightly improved from yesterday but minimally. SOB with any movement in bed. Was able to stand to urinate this morning but that was draining. Denies cough, fever, chills. Endorses black stools yesterday, unsure if they were present prior to that. Patient and are very frustrated with his recurrent admissions. Family History: Unchanged from Admission Social History: Unchanged from Admission Past Medical History: Unchanged from Admission Objective Active Medications: Albuterol (Ventolin 2.5 Mg/3 Ml Neb.Mariella*) 2.5 mg INH Q4H PRN Albuterol (Ventolin Hfa Inhaler*) 2 puff INH Q4H PRN Amlodipine Besylate (Norvasc Tab*) 10 mg PO DAILY [facility] Atorvastatin Calcium (Lipitor*) 20 mg PO DAILY [facility] Guaifenesin (Mucinex*) 600 mg PO BID [facility] Vancomycin HCl 1,000 mg/ (Sodium Chloride) 250 mls @ 166.667 mls/hr IVPB Q8H [facility] Levofloxacin (Levaquin Tab*) 500 mg PO DAILY [facility] Mometasone Furoate/Formoterol Fumar (Dulera 200/5 Mdi*) 2 puff INH BID [facility] Nystatin (Nystatin Suspension*) 100,000 units PO QID [facility] Pharmacy Consult (Vancomycin Per Pharmacy*) 1 note FOLLOW UP . PRN Pharmacy Profile Note (Vancomycin Trough Check) 1 note FOLLOW UP 0930 ONE Prednisone (Deltasone Tab*) 20 mg PO BID [facility] Tiotropium [place] (Spiriva Cap.Inh*) 1 cap INH DAILY [facility] Vital Signs 12/10/16 12/10/16 12/10/16 02:00 04:16 04:38 Temperature 98.3 F 98.1 F 97.8 F Pulse Rate 117 110 114 Respiratory 22 24 20 Rate Blood Pressure 128/51 140/70 125/64 (mmHg) O2 Sat by Pulse 100 100 100 Oximetry 12/10/16 12/10/16 12/10/16 05:00 07:27 08:10 Temperature 98.2 F 97.5 F Pulse Rate 110 107 107 Respiratory 20 22 17 Rate Blood Pressure 140/62 149/73 (mmHg) O2 Sat by Pulse 98 95 95 Oximetry 12/10/16 08:14 Temperature Pulse Rate 107 Respiratory 17 Rate Blood Pressure (mmHg) O2 Sat by Pulse 95 Oximetry Oxygen Devices in Use Now: Nasal Cannula Appearance: Elderly, M, laying in bed in mild respiratory distress Eyes: No Scleral Icterus Ears/Nose/Mouth/Throat: - - Dry MM Neck: NL Appearance and Movements; NL JVP Respiratory: Symmetrical Chest Expansion and Respiratory Effort, - - Prolonged expiratory phase, moderate air movement, no wheezing Cardiovascular: - - Mild tachycardia, no m/g/r Abdominal: NL Sounds; No Tenderness; No Distention Lymphatic: No Cervical Adenopathy Extremities: - - B/L LE edema Skin: No Rash or Ulcers Neurological: Alert and Oriented x 3 Result Diagrams: 12/09/16 21:50 12/10/16 09:48 Microbiology and Other Data: Microbiology 12/10/16 03:50 Legionella Urinary Antigen - Final Urine Negative Legionella Streptococcus pneumoniae Ag Screen - Final Negative S. pneumo Antigen Assess/Plan/Problems-Billing Assessment: SOB in a 71 yo M with hx of COPD, recent PNA and influenza, AFib on xarelto, prostate cancer, - Patient Problems (1) SOB (shortness of breath) Current Visit: Yes Comment: Multifactorial although I'm concerned about patient's anemia. He has had a significant drop since last admission and is on Xarelto which we will hold. Will check stool guaiac. Will ask for GI evaluation. Received 1u PRBC, repeat blood work pending. PPI BID. (2) Pneumonia Current Visit: No Comment: For now will continue Vanc/Levaquin. Have asked Pulm and ID to evaluate the patient for further recommendations. Again, unclear how much anemia is contributing to current presentation. Wean oxygen as able. Recheck lactate. (3) COPD (chronic obstructive pulmonary disease) Current Visit: No Comment: Continue dulera, spiriva, montelukast, albuterol, prednisone 20 mg bid. Wean O2 as able. (4) Atrial fibrillation Current Visit: No Comment: Seems to be in sinus tachycardia at present. Continue metoprolol. Holding Xarelto. Trend troponins, may have some mild demand mediated ischemia from anemia. (5) DVT prophylaxis Current Visit: No Comment: SCDs
[2016-12-10] MEDS ORDERED: Pantoprazole IV* 40 MG ONE (12:06)
[2016-12-10] MEDS: PANTOPRAZOLE IVPB SCH (12:16)
[2016-12-10] MEDS: Montelukast Sodium TAB* 10 MG PO SCH (12:16)
[2016-12-10] MEDS: Metoprolol Succinate XL TAB* 25 MG PO SCH (12:16)
[2016-12-10] MEDS: NS 0.9% IVPB SCH (12:16)
[2016-12-10 13:09] LABS: Hematocrit 24 % (42-52); Hemoglobin 8.1 g/dl (14.0-18.0); Mean Corpuscular HGB Conc 33 g/dl (31-36); Mean Corpuscular Hemoglobin 30 pg (27-31); Mean Corpuscular Volume 90 fL (80-94); Mean Platelet Volume 8 um3 (7.4-10.4); Red Blood Count 2.72 10^6/ul (4.0-5.4); Red Cell Distribution Width 15 % (10.5-15); White Blood Count 26.7 10^3/ul (3.5-10.8)
[2016-12-10 13:10] LABS: Comments Flag Yes
[2016-12-10 13:11] LABS: Add Diff/Slide Review? Slide Review Added
[2016-12-10 13:52] LABS: Immature Granulocytes 9 % (0-9); Metamyelocytes % 3 % (0-2); Myelocytes % 1 % (0-1); Neutrophil % 82 % (38-83)
[2016-12-10 13:54] LABS: Hypochromasia 1+
--- NOTE | 2016-12-10 15:29 | RAD ---
Indication: Pneumonia. CT of the chest was performed without IV contrast. Coronal and sagittal reconstructed images were obtained. Inferior thyroid lobes are unremarkable. There is no mediastinal or hilar adenopathy noted. The heart demonstrates no pericardial effusion. The trachea and major bronchi appear patent. Lung jules demonstrate mild emphysematous changes. Airspace disease is noted in the lingula with cavitary lesion. No fluid is noted. Findings are consistent with pneumonia. I cannot totally exclude central necrosis however. Right lung field is clear. IMPRESSION: Airspace disease in the lingula with suggestion of some cavitary process. This is consistent with pneumonia. The possibility of central necrosis should BE considered. Follow-up exam is suggested.
[2016-12-10] MEDS: Vancomycin(*) 1,250 MG in NS 0.9% 250 ML* 250 ML IVPB SCH (19:51)
--- NOTE | 2016-12-10 22:55 | CONS ---
PULMONARY CONSULTATION REPORT: DATE OF CONSULT: 12/10/16 REASON FOR CONSULT: Evaluation of the shortness of breath. CONSULTATION REQUESTED BY: Burak Wilson MD HISTORY OF PRESENT ILLNESS: The patient is a 71-year-old pleasant gentleman, known to me from recent inpatient visit. The patient was recently discharged from [facility] when he was admitted for evaluation of worsening shortness of breath and was treated for recurrent pneumonia, even new left lower lobe opacity. The patient was discharged on prednisone and Levaquin. The patient had 3 other hospitalizations since late October until now. The patient has been doing well until 1 day ago when he started having acute worsening of shortness of breath. The patient had significant dyspnea with minimal exertion. The patient also reported chest tightness. The patient denies significant cough or productive sputum. The patient also reported having dark stools. The patient has history of emphysema and is on oxygen at home. He has not been compliant with his oxygen as prescribed. The patient also reported generalized weakness. The patient was seen and examined at the bedside by me. The patient received 1 unit of transfusion this morning and reports slight improvement in his breathing. He has been noted to be tachycardic and with history of atrial fibrillation, was started on Cardizem drip. The patient was also noted to have elevated white count. The patient had chest x-ray on this admission, which was personally reviewed by me - the patient noted to have increasing right lower lung opacity compared to his prior chest x-ray. The patient also noted to have elevated white count and significant drop in his hemoglobin. The patient also noted to have slightly elevated lactic acid levels and also elevated troponins. GI consultation was obtained and there is a plan for upper endoscopy tomorrow. PAST MEDICAL HISTORY: 1. Left upper lobe pneumonia on recent admission. 2. Chronic obstructive pulmonary disease, on home O2. 3. Hyperlipidemia. 4. Atrial fibrillation, on Eliquis. 5. Prostate cancer history. 6. Multiple admission for COPD exacerbation and pneumonias. 7. History of recurrent bronchitis. 8. History of recent influenza. MEDICATIONS: 1. Albuterol inhaler 2 puffs q.4 hours. 2. Levaquin 500 mg. 3. Ibuprofen 400 mg q.6 hours. 4. Symbicort 160/4.5 mcg. 5. Lipitor 20 mg daily. 6. Eliquis 5 mg twice daily. 7. Amlodipine 10 mg daily. 8. Spiriva 1 inhalation daily. 9. Nystatin suspension. 10. Singulair 10 mg daily. 11. Metoprolol succinate 12.5 mg daily. 12. Prednisone 20 mg twice daily. 13. Guaifenesin extended release 600 mg twice daily. ALLERGIES: ALLERGIC REACTION TO SIMVASTATIN. FAMILY HISTORY: CVA in father. SOCIAL HISTORY: Ex-smoker, no history of alcohol or drug abuse. He lives at home with his . REVIEW OF SYSTEMS: All 14 systems were reviewed and as per HPI. PHYSICAL EXAM: General: The patient is sitting up in bed, in no apparent distress, a little bit tachycardic and mildly tachypneic. Vital Signs: Temperature 98.4, pulse 106 beats per minute, respiratory rate 22 per minute, O2 sat 99% on 2 L, and blood pressure 141/67. HEENT: Pupils equal and reactive to light. Mucous membranes are pale. Neck: Supple. No palpable supraclavicular adenopathy. Chest: Good air entry bilaterally. No wheeze or rhonchi. Cardiovascular: S1, S2 present. Irregular. Abdomen: Soft, nontender , and nondistended. Bowel sounds present. Extremities: No cyanosis or clubbing. Neurologic: Alert, awake, and oriented x3. No focal deficits. Skin : No rash or bruises. DIAGNOSTIC STUDIES/LAB DATA: WBC count is 26.7, hemoglobin of 8.1 after 1 unit of transfusion, hematocrit of 24, and platelet count 195. D-dimer less than 200. INR of 1.5. Sodium 131, potassium 4.9, chloride 96, bicarb 27, BUN of 81 , creatinine 1.25, glucose 251, and lactic acid 3.6. Troponin elevated to 0.06. BNP of 104. Chest x-ray as described above in HPI. IMPRESSION AND RECOMMENDATIONS: The patient is a 71-year-old male with history of emphysema, O2 dependence, history of recurrent bronchitis, multiple admissions recently for chronic obstructive pulmonary disease exacerbation, and pneumonia, admitted with worsening shortness of breath, likely secondary to upper GI bleed. The patient's acute shortness of breath with new anemia, likely acute blood loss anemia given history of black stools and shortness of breath is likely secondary to acute blood loss anemia. The patient is scheduled for upper endoscopy tomorrow. The patient received 1 unit of PRBC transfusion. Close monitoring of hemoglobin. Left lower lobe pneumonia with probable slight progression. Unclear whether it could be aspiration pneumonia or any acute bleeding into the lungs. The patient is currently on Levaquin and vancomycin. I would agree with the coverage. Recommend ID consultation. The patient was supposed to have bronchoscopy as outpatient; however, he has been admitted recurrently. Will obtain CT scan to evaluate the left lower lobe opacity whether it is atelectasis or actually pneumonia. Continue with O2 supplementation. Elevated troponins is likely secondary stress ischemia. The patient not in acute chronic obstructive pulmonary disease exacerbation at this time. Continue with bronchodilator and inhalers as prescribed. Thank you for allowing me to participate in care of your patient. Discussed with Dr. Wilson. [id number]/CPS #: [id number] NIKKY
[2016-12-11] MEDS: PANTOPRAZOLE IVPB SCH ×3 (00:12→11:36)
[2016-12-11] MEDS: NS 0.9% IVPB SCH ×3 (00:12→11:36)
[2016-12-11] MEDS ORDERED: Pantoprazole IV* 40 MG ONE (00:14)
--- NOTE | 2016-12-11 01:15 | CONS ---
CONSULTATION NOTE: DATE OF CONSULT: 12/10/16 REASON FOR THE CONSULTATION: Anemia, black stools. NARRATIVE: Mr. Celis is a 71-year-old gentleman with a history of COPD who was recently discharged from the hospital for pneumonia complicated by atrial fibrillation. He was placed on Eliquis. He did well for about 24 hours after discharge, but on the day after felt very fatigued, he also noticed frequent black stools and more shortness of breath. He re-presented to the emergency room where he was thought to have a new pneumonia, but was also found to be anemic with a hemoglobin of 8.3. This is in comparison to his hemoglobin of 13.4 at the day of discharge. Again, he did report black stools. He has no prior history of GI bleeding. His Eliquis has been held. He has been given a unit of packed red blood cells. PAST MEDICAL HISTORY: Does include: 1. COPD. 2. Recurrent pneumonia. 3. New onset atrial fibrillation. 4. He has a history of prostate cancer, status post prostatectomy. OUTPATIENT MEDICATIONS: 1. Albuterol inhaler. 2. Levaquin. 3. Lipitor. 4. Eliquis. 5. Amlodipine. 6. Singulair. 7. Metoprolol. 8. Prednisone. He denies any use of NSAIDs. REVIEW OF SYSTEMS: He does describe having a colonoscopy that was normal 3 years ago. He denies any bright red blood per rectum, heartburn, nausea, hematemesis, or abdominal pain. PHYSICAL EXAM: He is an elderly gentleman lying in bed, on oxygen, but appearing comfortable and not tachypneic. Temperature is 98.2. Blood pressure is 140/64. Heart rate is 101 and irregular. He does not appear pale. His lungs reveal relatively clear breath sounds. Cardiac exam reveals an irregular rhythm, but no murmur. His abdomen is soft without tenderness. Bowel sounds are hypoactive, but present. DIAGNOSTIC STUDIES/LAB DATA: Data again includes a hemoglobin of 8.1, MCV of 90 , INR of 1.55. BUN is 88. Creatinine of 1.09. IMPRESSION: A 71-year-old gentleman with recent admission for pneumonia and chronic obstructive pulmonary disease exacerbation, on prednisone. Also found to have atrial fibrillation and placed on Eliquis, now presenting with worsening shortness of breath and the findings of black stools and anemia. He is certainly on gastric irritants such as Eliquis and prednisone. Upper GI source for bleeding seems quite likely. This was discussed with the patient. He is now on IV Protonix. He is getting transfused. We will plan on performing an upper endoscopy tomorrow. His Eliquis is being held at this point as well. CC: Dr. Garcia* [id number]/CPS #: [id number] MTDD
[2016-12-11] MEDS: Vancomycin(*) 1,250 MG in NS 0.9% 250 ML* 250 ML IVPB SCH ×2 (03:38→11:21)
[2016-12-11] MEDS: Mometasone/Formoter 200/5 MDI INH SCH ×2 (08:03→21:28)
[2016-12-11] MEDS: Tiotropium CAP.INH* CAP.INH/18 MCG INH SCH (08:03)
[2016-12-11] MEDS ORDERED: Vancomycin Trough Check NOTE FOLLOW UP ONE (09:30)
[2016-12-11] MEDS: predniSONE TAB* 20 MG PO SCH ×2 (09:55→20:10)
[2016-12-11] MEDS: Metoprolol Succinate XL TAB* 25 MG PO SCH (09:56)
[2016-12-11] MEDS: guaiFENesin ER TAB 600 MG PO SCH ×2 (09:56→20:10)
[2016-12-11] MEDS: Levofloxacin TAB* 500 MG PO SCH (09:56)
[2016-12-11] MEDS: Montelukast Sodium TAB* 10 MG PO SCH (09:56)
[2016-12-11] MEDS: Atorvastatin* 20 MG TAB PO SCH (09:56)
[2016-12-11] MEDS: amLODIPine TAB* 5 MG PO SCH (09:57)
[2016-12-11] MEDS: Nystatin SUSPENSION* 100000 UNITS/ML 5 ML UDC PO SCH ×4 (09:57→20:10)
[2016-12-11 09:58] LABS: Hematocrit 26 % (42-52); Hemoglobin 8.3 g/dl (14.0-18.0); Mean Corpuscular HGB Conc 33 g/dl (31-36); Mean Corpuscular Hemoglobin 29 pg (27-31); Mean Corpuscular Volume 89 fL (80-94); Mean Platelet Volume 8 um3 (7.4-10.4); Red Blood Count 2.86 10^6/ul (4.0-5.4); Red Cell Distribution Width 14 % (10.5-15); White Blood Count 26.2 10^3/ul (3.5-10.8)
[2016-12-11 10:01] LABS: Add Diff/Slide Review? Slide Review Added; Comments Flag Yes
[2016-12-11 10:23] LABS: BUN/Creatinine Ratio 69.1 (8-20); Calcium 7.6 mg/dL (8.6-10.3); EGFR African American 189.4 (>60); EGFR Non-African American 147.3 (>60); Potassium 3.9 mmol/L (3.5-5.0); Vancomycin Trough 20.3 mcg/mL
[2016-12-11 11:19] LABS: Immature Granulocytes 1 % (0-9); Neutrophil % 94 % (38-83); RBC Morphology Normal (Normal)
--- NOTE | 2016-12-11 11:28 | PN ---
Subjective Date of Service: 12/11/16 Interval History: Patient seen this morning. Says he is feeling better. Breathing easier, productive cough beginning last night. No fever or chills. Feels his energy has improved. No BM yet. Family History: Unchanged from Admission Social History: Unchanged from Admission Past Medical History: Unchanged from Admission Objective Active Medications: Albuterol (Ventolin 2.5 Mg/3 Ml Neb.Mariella*) 2.5 mg INH Q4H PRN Albuterol (Ventolin Hfa Inhaler*) 2 puff INH Q4H PRN Amlodipine Besylate (Norvasc Tab*) 10 mg PO DAILY [facility] Atorvastatin Calcium (Lipitor*) 20 mg PO DAILY [facility] Guaifenesin (Mucinex*) 600 mg PO BID [facility] Pantoprazole Sodium 40 mg/ (Sodium Chloride) 250 mls @ 25 mls/hr IVPB 0000, 1200 SHAUNA Vancomycin HCl 1,000 mg/ (Sodium Chloride) 250 mls @ 166.667 mls/hr IVPB Q8H [facility] Levofloxacin (Levaquin Tab*) 500 mg PO DAILY [facility] Metoprolol Succinate (Toprol Xl Tab*) 12.5 mg PO DAILY [facility] Mometasone Furoate/Formoterol Fumar (Dulera 200/5 Mdi*) 2 puff INH BID [facility] Montelukast Sodium (Singulair Tab*) 10 mg PO DAILY [facility] Nystatin (Nystatin Suspension*) 100,000 units PO QID [facility] Pharmacy Consult (Vancomycin Per Pharmacy*) 1 note FOLLOW UP . PRN Pharmacy Profile Note (Vancomycin Trough Check) 1 note FOLLOW UP ONCE ONE Prednisone (Deltasone Tab*) 20 mg PO BID [facility] Tiotropium [place] (Spiriva Cap.Inh*) 1 cap INH DAILY [facility] Vital Signs 12/10/16 12/10/16 12/10/16 15:29 16:13 18:50 Temperature 98.2 F 97.9 F Pulse Rate 101 94 Respiratory 24 24 Rate Blood Pressure 140/64 120/71 142/66 (mmHg) O2 Sat by Pulse 100 98 Oximetry 12/10/16 12/10/16 12/11/16 20:15 23:32 00:00 Temperature 98.1 F 98.1 F Pulse Rate 93 81 Respiratory 22 16 Rate Blood Pressure 141/65 110/54 (mmHg) O2 Sat by Pulse 96 96 96 Oximetry 0412/11/16 12/11/16 03:23 07:51 08:00 Temperature 98.3 F 97.9 F Pulse Rate 85 87 Respiratory 20 16 18 Rate Blood Pressure 126/65 140/67 (mmHg) O2 Sat by Pulse 96 94 94 Oximetry Oxygen Devices in Use Now: Nasal Cannula - 1L Appearance: Elderly, M, sitting in bed in NAD Eyes: No Scleral Icterus Ears/Nose/Mouth/Throat: - - Dry MM Neck: NL Appearance and Movements; NL JVP Respiratory: Symmetrical Chest Expansion and Respiratory Effort, - - Slightly diminished but clear, no wheezing appreciated Cardiovascular: NL Sounds; No Murmurs; No JVD, RRR Abdominal: NL Sounds; No Tenderness; No Distention Lymphatic: No Cervical Adenopathy Extremities: - - B/L LE pitting edema to mid-gardiner Skin: No Rash or Ulcers Neurological: Alert and Oriented x 3 Result Diagrams: 12/11/16 09:44 12/11/16 09:44 Assess/Plan/Problems-Billing Assessment: SOB in a 71 yo M with hx of COPD, recent PNA and influenza, AFib on xarelto, prostate cancer, - Patient Problems (1) SOB (shortness of breath) Current Visit: Yes Comment: Multifactorial although may be mostly driven by anemia likely 2/2 GIB. Appreciate GI assistance. Continue PPI BID. EGD today. Holding Eliquis. Received 2 units of PRBC. Hb stable, no clear evidence of further bleeding, tachycardia resolved. Continue to monitor H/H, transfuse as needed. (2) Pneumonia Current Visit: No Comment: Appreciate ID and Pulm consults. CT shows cavitary process, possibly nectoric. Continue Vanc/Levaquin for now. Will speak with Pulm further regarding bronch vs percutaneous biopsy. Wean oxygen as able. Lactic acidosis resolved. (3) COPD (chronic obstructive pulmonary disease) Current Visit: No Comment: Continue dulera, spiriva, montelukast, albuterol, prednisone 20 mg bid. Wean O2 as able. (4) Atrial fibrillation Current Visit: No Comment: Paroxysmal. Continue metoprolol. Holding Eliquis. Troponins stable. (5) DVT prophylaxis Current Visit: No Comment: SCDs
--- NOTE | 2016-12-11 12:11 | CONS ---
DATE OF CONSULT: 12/11/2016. REQUESTING PHYSICIAN: Dr. Wilson. CONSULTING SERVICE: Infectious Disease. REASON FOR CONSULTATION: Cavitary pneumonia. IMPRESSION: 1. Frequent recent admissions with presumed bacterial pneumonia, then with influenza and now with dyspnea, found to be due to an upper GI bleed. The chest CT, however, did also show a cavitary lingular lesion with some surrounding amount of infiltrate. However, the differential diagnosis does include bacterial organisms like nocardia or actinomyces, microbacterial particulate and nontuberculous microbacterial are a little more likely given the location. I think tuberculosis unlikely, fungal infections including aspergillus, which he grew in his sputum in the past, however that can be airway colonization in COPD, other fungal including histoplasma, cryptococcus. Pneumocystis is unlikely. 2. COPD with a recent supplemental oxygen requirement on high dose cortical steroids over the last few weeks which may have predisposed to development of this likely atypical infection. 3. Recent influenza. 4. Atrial fibrillation. RECOMMENDATIONS: 1. Agree with broad spectrum antibiotics. I discussed the case with Dr. Israel who is going to arrange a CT guided biopsy and will include fungal and __ mycobacterial cultures. Will hold on broadening his therapy until we have a specimen and hopefully increase the yield of that procedure. 2. Cryptococcal antigen from the serum and urine histoplasma antigen. HISTORY OF PRESENT ILLNESS: This 71-year-old man with COPD and a number of recent admissions for various pneumonias and influenza, most recently was here on December 04 and discharged on Levaquin and high does of Prednisone and was feeling well. The microbiologic studies at that time were negative except for mold in the sputum which was also isolated from the sputum end of October. That was speciated as aspergillus fumigatus. He was feeling well at home until he started to notice shortness of breath with any movement and occasional cough. He came back to the hospital and found his hemoglobin had decreased from 13 to 8 and he noticed black tarry stools for a day or so. His anticoagulation has stopped. He is on proton pump inhibitor and is going to have an EGD. He has a blood transfusion and his dyspnea is much improved, so that now he can get up to the urinal without getting short of breath. He does have an ongoing cough which is occasionally productive. A sputum sample is sent and is pending. He has been continued on Levaquin and Prednisone and Vancomycin was added as well. CT scan of the chest was done as above and compared to the scan on November 19, that lesion is new. The previous infiltrates in the bilateral lower lobes and right middle lobe are resolved. He does endorse coughing when he eats or drinks, but that is pretty rare and does not remember any recent episodes of that. He has not been involved in any construction projects or had any construction done in his home, and no travel in the last few weeks. PAST MEDICAL HISTORY: 1. COPD. 2. Atrial fibrillation, recently diagnosed. 3. Hyperlipidemia. 4. Prostate cancer, status post prostatectomy. 5. Hypertension. 6. Recent influenza. MEDICATIONS: 1. Albuterol inhaler. 2. Lipitor. 3. Lasix. 4. Levaquin 500 mg by mouth daily. 5. Singulair. 6. Nystatin. 7. Pantoprazole. 8. Spiriva inhaler. 9. Vancomycin 1250 mg every 8 hours. 10. Amlodipine. ALLERGIES: SIMVASTATIN CAUSED TRANSAMINITIS. FAMILY HISTORY: No tuberculosis, no recurrent infections. 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 No travel, no sick contacts, a pet cat at home. He was in the [place], had lived in [place] and [place]. No known TB contacts. REVIEW OF SYSTEMS: A full review of systems was negative except as noted above. PHYSICAL EXAM: General: He is awake and not distressed. Vital Signs: Temperature 36.6, heart rate 80, respiratory rate 14, blood pressure 140/67, O2 sat 95% on one liter. HEENT: There is no conjunctival hemorrhage. Oropharynx without lesions. Neck: Supple without nuchal rigidity. Lymph Nodes: There is no cervical, supraclavicular, inguinal, axillary or epitrochlear lymphadenopathy. Heart: Regular rate and rhythm without murmurs, rubs or gallops. Lungs: Diminished breath sounds throughout without wheezes or rales. Abdomen: Soft, nontender, nondistended. Skin: There is no rash or splinter hemorrhages. Musculoskeletal: There is no spine tenderness to palpation or joint synovitis. Neurologic: Alert and oriented times three, follows all commands and moves all extremities. LABORATORY DATA: White blood cell count 26,000, hemoglobin 8, platelets 152; creatinine 0.5, troponin 0.06. Please see impression and recommendations outlined above, which I have discussed with Dr. Wilson and Dr. Israel. Thank you for asking me to see Lanre MoraBreana in consultation. [id number]/[facility] #: [id number] NIKKY
[2016-12-11] MEDS ORDERED: Meperidine SYRINGE* 50 MG/ML ONE (16:03)
[2016-12-11] MEDS ORDERED: Midazolam* 1 MG/ML 10 ML VIAL (10 MG) ONE (16:03)
[2016-12-11] MEDS: Vancomycin(*) 1,000 MG in NS 0.9% 250 ML* 250 ML IVPB SCH (18:10)
[2016-12-12] MEDS: Vancomycin(*) 1,000 MG in NS 0.9% 250 ML* 250 ML IVPB SCH ×3 (00:15→17:54)
[2016-12-12] MEDS: PANTOPRAZOLE IVPB SCH ×2 (02:31→14:19)
[2016-12-12] MEDS: NS 0.9% IVPB SCH ×3 (02:31→20:11)
[2016-12-12 05:36] LABS: Add Diff/Slide Review? Slide Review Added; Comments Flag Yes; Hematocrit 24 % (42-52); Mean Corpuscular HGB Conc 33 g/dl (31-36); Mean Corpuscular Hemoglobin 30 pg (27-31); Mean Corpuscular Volume 91 fL (80-94); Mean Platelet Volume 7 um3 (7.4-10.4); Red Blood Count 2.65 10^6/ul (4.0-5.4); Red Cell Distribution Width 14 % (10.5-15); White Blood Count 23.4 10^3/ul (3.5-10.8)
[2016-12-12 06:31] LABS: BUN/Creatinine Ratio 63.4 (8-20); Calcium 7.6 mg/dL (8.6-10.3); EGFR African American 265.8 (>60); EGFR Non-African American 206.7 (>60); Potassium 4.2 mmol/L (3.5-5.0)
[2016-12-12] MEDS: Mometasone/Formoter 200/5 MDI INH SCH ×2 (08:11→21:36)
[2016-12-12] MEDS: Tiotropium CAP.INH* CAP.INH/18 MCG INH SCH (08:11)
[2016-12-12] MEDS: predniSONE TAB* 20 MG PO SCH ×2 (09:24→20:14)
[2016-12-12] MEDS: Nystatin SUSPENSION* 100000 UNITS/ML 5 ML UDC PO SCH ×4 (09:24→20:15)
[2016-12-12] MEDS: amLODIPine TAB* 5 MG PO SCH (09:24)
[2016-12-12] MEDS: Montelukast Sodium TAB* 10 MG PO SCH (09:25)
[2016-12-12] MEDS: Metoprolol Succinate XL TAB* 25 MG PO SCH (09:25)
[2016-12-12] MEDS: Levofloxacin TAB* 500 MG PO SCH (09:25)
[2016-12-12] MEDS: Atorvastatin* 20 MG TAB PO SCH (09:25)
[2016-12-12] MEDS: guaiFENesin ER TAB 600 MG PO SCH ×2 (09:25→20:14)
--- NOTE | 2016-12-12 10:29 | PRO ---
DATE: 12/11/16 REFERRING PHYSICIANS: Jelly Garcia; Renato Means; Jasiel Ortega PROCEDURE: Upper gastrointestinal endoscopy and gastric biopsy of CLOtsj. INDICATION: This 71-year-old man with long-standing COPD, taking prednisone courses repeatedly and increasingly, was recently diagnosed with atrial fibrillation. He was placed on anticoagulation. Hemoglobin baseline had been 13, and on admission 36 hours ago was down into the 8s. He had seen some black stool. He has a cavitary lesion in the lungs, scheduled for biopsy tomorrow. 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 Today in the hospital, he has been stable with no dyspepsia or vomiting and no bowel movements in the last 36 hours, and hemoglobin has remained steady in the low 8s on serial determinations. ENDOSCOPIST: Keven Julio MEDICATIONS: Midazolam 5; meperidine 25 in increments with excellent tolerance and no recall EGD: Larynx - symmetric, limited views. Esophagus - easily entered, and the mucosa is normal in the upper, mid, and lower esophagus with the EG junction showing superficial exudate around the margin of the squamocolumnar junction. They do not track up the esophagus in a typical peptic configuration, raising the question of a caustic injury. There is no stricture or chronic Nair's change. Stomach - generally normal mucosa in the cardia and fundus. In the body, there was a little bit of erythema. In the proximal antrum/greater curvature aspect, there is a slightly oval 7 x 9 mm deep punched-out ulcer with some deep purple points in the base. There is no protruding vessel and no clot or blood. The rest of the antrum appears normal. The pylorus appears normal. Duodenum - the proximal bulb appears normal, but in the distal bulb roof portion around 11 o'clock, there is a deep ulcer about 1 x 1.5 cm. It has some reddish hue to the base, but similarly no actual protruding vessel and there is no bleeding or clot. The scope then passed into the second portion and third portion, and there were no abnormalities there. During withdrawal, CLOtest taken from gastric body acknowledging that he has had many days of antibiotic treatment recently. IMPRESSION: 1. Duodenal ulcer - on a PPI drip. Addendum: Clotest negative 2. Gastric ulcer - Helicobacter assessment will need to be gotten a couple more times to fully assess its role. 3. Focal distal esophagitis - probably on the basis of medication hanging up there secondary to recumbency and incomplete swallows. He will need to be scoped again unless multiple competing morbidities make this less of a priority. [id number]/[facility] #: [id number] MTDD
[2016-12-12] MEDS ORDERED: Furosemide IV* 10 MG/ML VIAL (40 MG) IV ONE (10:33)
--- NOTE | 2016-12-12 10:40 | PN ---
Subjective Date of Service: 12/12/16 Interval History: Patient seen this morning. Says he had some sputum production overnight that was blood tinged, seems to be clearing. No fever or chills. Still with LE edema , feels very weak. Understands results of EGD, culture results and delay on procedure. Family History: Unchanged from Admission Social History: Unchanged from Admission Past Medical History: Unchanged from Admission Objective Active Medications: Albuterol (Ventolin 2.5 Mg/3 Ml Neb.Mariella*) 2.5 mg INH Q4H PRN Albuterol (Ventolin Hfa Inhaler*) 2 puff INH Q4H PRN Amlodipine Besylate (Norvasc Tab*) 10 mg PO DAILY [facility] Atorvastatin Calcium (Lipitor*) 20 mg PO DAILY [facility] Guaifenesin (Mucinex*) 600 mg PO BID [facility] Pantoprazole Sodium 40 mg/ (Sodium Chloride) 250 mls @ 25 mls/hr IVPB 0000, 1200 SHAUNA Vancomycin HCl 1,000 mg/ (Sodium Chloride) 250 mls @ 166.667 mls/hr IVPB Q8H [facility] Levofloxacin (Levaquin Tab*) 500 mg PO DAILY [facility] Metoprolol Succinate (Toprol Xl Tab*) 12.5 mg PO DAILY [facility] Mometasone Furoate/Formoterol Fumar (Dulera 200/5 Mdi*) 2 puff INH BID [facility] Montelukast Sodium (Singulair Tab*) 10 mg PO DAILY [facility] Nystatin (Nystatin Suspension*) 500,000 units PO QID [facility] Pharmacy Consult (Vancomycin Per Pharmacy*) 1 note FOLLOW UP . PRN Pharmacy Profile Note (Vancomycin Trough Check) 1 note FOLLOW UP ONCE ONE Prednisone (Deltasone Tab*) 20 mg PO BID [facility] Tiotropium [place] (Spiriva Cap.Inh*) 1 cap INH DAILY [facility] Vital Signs 12/11/16 12/11/16 12/11/16 11:31 14:09 16:00 Temperature 98.0 F 97.5 F Pulse Rate 87 88 Respiratory 18 Rate Blood Pressure 153/67 146/66 (mmHg) O2 Sat by Pulse 97 96 92 Oximetry 12/11/16 12/11/16 12/11/16 17:20 17:40 19:39 Temperature 97.2 F 97.6 F Pulse Rate 85 84 Respiratory 20 20 Rate Blood Pressure 128/64 135/60 (mmHg) O2 Sat by Pulse 92 92 Oximetry 12/11/16 12/11/16 12/11/16 19:40 19:55 21:30 Temperature 98.1 F Pulse Rate 97 Respiratory 20 22 Rate Blood Pressure 136/78 (mmHg) O2 Sat by Pulse 95 92 Oximetry 12/11/16 12/12/16 12/12/16 21:33 00:00 00:29 Temperature 97.7 F Pulse Rate 100 81 Respiratory 18 20 Rate Blood Pressure 137/64 (mmHg) O2 Sat by Pulse 92 92 95 Oximetry 12/12/16 12/12/16 12/12/16 03:45 07:28 07:43 Temperature 97.4 F 97.3 F Pulse Rate 82 80 Respiratory 20 20 16 Rate Blood Pressure 130/53 140/61 (mmHg) O2 Sat by Pulse 91 98 Oximetry 12/12/16 08:13 Temperature Pulse Rate 80 Respiratory 14 Rate Blood Pressure (mmHg) O2 Sat by Pulse 98 Oximetry Oxygen Devices in Use Now: Nasal Cannula - 1L Appearance: Elderly, M, sitting in chair in NAD Eyes: No Scleral Icterus Ears/Nose/Mouth/Throat: Mucous Membranes Moist Neck: NL Appearance and Movements; NL JVP Respiratory: Symmetrical Chest Expansion and Respiratory Effort, Clear to Auscultation Cardiovascular: NL Sounds; No Murmurs; No JVD, RRR Abdominal: NL Sounds; No Tenderness; No Distention Lymphatic: No Cervical Adenopathy Extremities: - - B/L LE pitting edema to below knees Skin: No Rash or Ulcers Neurological: Alert and Oriented x 3 Result Diagrams: 12/12/16 05:26 12/12/16 05:26 Assess/Plan/Problems-Billing Assessment: SOB in a 71 yo M with hx of COPD, recent PNA and influenza, AFib on xarelto, prostate cancer, - Patient Problems (1) SOB (shortness of breath) Current Visit: Yes Comment: Multifactorial although may be mostly driven by anemia likely 2/2 GIB. Appreciate GI assistance. Continue PPI BID. EGD shows duodenal bulb ulcer, CLOtest negative but may have been impacted by ongoing antibiosis. Will need repeat EGD as outpatient. Holding Eliquis. Received 2 units of PRBC total. Hb stable, no clear evidence of further bleeding. Continue to monitor H/H, transfuse as needed. (2) Pneumonia Current Visit: No Comment: Appreciate ID and Pulm consults. Spoke with IR today, will need to wait until 12/15 for percunatenous biopsy as patient has not had enough time for Eliquis to clear out of the system. CT shows cavitary process, possibly necrotic. 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 Continue Vanc/Levaquin for now pending further ID input although may be able to stop. ?Start antifungal therapy vs wait until biopsy is done as patient is stable. Wean oxygen as able. (3) COPD (chronic obstructive pulmonary disease) Current Visit: No Comment: Continue dulera, spiriva, montelukast, albuterol, prednisone 20 mg bid, will consider weaning futher over the next days. Wean O2 as able. (4) Atrial fibrillation Current Visit: No Comment: Paroxysmal. Continue metoprolol. Holding Eliquis. Troponins stable. IV Lasix x 1 for fluid overload. (5) DVT prophylaxis Current Visit: No Comment: SCDs Status and Disposition: Awaiting biopsy. Will need PT.
--- NOTE | 2016-12-12 15:02 | PN ---
Progress Note - Progress Note SOAP: Subjective: DOS: 12/13/15 CC: cough HPI: 71 year old man with multiple recent admission for influenza, pneumonia, COPD exacerbation now with weakness and sob with any movement, found to have GI bleed. EGD showed duodenal ulcer. Cavitary left lung lesion seen on chest CT. Ongoing cough which is productive. Objective: [] Vital Signs Temp 36.2 C 12/12/16 11:51 Pulse 101 12/12/16 13:30 Resp 16 12/12/16 11:51 BP 152/68 12/12/16 11:51 Pulse Ox 96 12/12/16 13:30 Intake & Output 12/11/16 12/12/16 12/12/16 18:59 06:59 18:59 Intake Total 1498 50 831 Output Total 400 400 Balance 1098 50 431 Intake: IV Fluids 128 711 ABX - VANCOMYCIN 270 Protonix 128 441 Oral 1370 50 120 Output: Urine 400 400 Other: # Bowel Movements 0 0 # Voids 0 2 Gen:Awake, no distress Neuro:Ox3 HEENT:PERRL, MMM Neck:Supple Heart:RRR no murmur Lungs:CTA BL Abd:+BS NTND soft Skin: no rash MSK: no spine tenderness Laboratory Results - last 24 hr 12/11/16 12/12/16 12/12/16 09:44 05:26 05:26 WBC 23.4 H RBC 2.65 L Hgb 8.0 L Hct 24 L MCV 91 MCH 30 MCHC 33 RDW 14 Plt Count 147 L MPV 7 L Neut % (Auto) 89.5 H Lymph % (Auto) 2.9 L [place] % (Auto) 6.1 Eos % (Auto) 0 Baso % (Auto) 1.5 Absolute Neuts (auto) 21.0 H Absolute Lymphs (auto) 0.7 L Absolute Monos (auto) 1.4 H Absolute Eos (auto) 0 Absolute Basos (auto) 0.3 H Absolute Nucleated RBC 0.79 Nucleated RBC % 3.4 INR (Anticoag Therapy) APTT Sodium 134 Potassium 4.2 Chloride 105 Carbon Dioxide 25 Anion Gap 4 BUN 26 H Creatinine 0.41 L Est GFR ( Amer) 265.8 Est GFR (Non-Af Amer) 206.7 BUN/Creatinine Ratio 63.4 H Glucose 149 H Calcium 7.6 L Cryptococcus Ag Negative Microbiology 12/10/16 23:03 Gram Stain - Final Sputum Expectorated Sputum Culture - Final MOLD Normal [place] 12/11/16 17:16 CLOtest - Final Gastric Antrum 12/10/16 04:08 Aerobic Blood Culture - Preliminary Blood Venous No Growth Day 2 Anaerobic Blood Culture - Preliminary No Growth Day 2 Blood Culture - Final 12/10/16 03:00 Aerobic Blood Culture - Preliminary Blood Venous No Growth Day 2 Anaerobic Blood Culture - Preliminary No Growth Day 2 Blood Culture - Final Assessment: 1. 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 COPD on increased corticosteroids last few weeks 3. atrial fibrillation Plan: 1. continue vancomycin goal tr 15-20. IR lung biopsy rescheduled for Thursday. Would prefer not to wait that long to start antifungal treatment if it is Aspergillosis which is high on the differential. May decrease culture yield but better to keep this from progressing while awaiting sample. Will start vori 6 mg/kg IV x2 then 4 mg/kg IV. Discussed with Dr Wilson
--- NOTE | 2016-12-12 15:10 | PN ---
Progress Note - Progress Note Note: Pulm consult f/u note 12/12/16. Pt seen and examined at bedside. Pt reports feeling better today. Had streaks of blood this am when he coughed. Denies dark stools. Active Medications Generic Name Dose Route Start Last Admin Trade Name Freq PRN Reason Stop Dose Admin Albuterol 2.5 mg 12/10/16 00:25 Ventolin 2.5 Mg/3 Ml Neb.Mariella* INH Q4H PRN WHEEZING Albuterol 2 puff 12/10/16 00:25 Ventolin Hfa Inhaler* INH Q4H PRN SHORTNESS OF BREATH Amlodipine Besylate 10 mg 12/10/16 09:00 12/12/16 09:24 Norvasc Tab* PO 10 mg DAILY SHAUNA Administration Atorvastatin Calcium 20 mg 12/10/16 09:00 12/12/16 09:25 Lipitor* PO 20 mg DAILY SHAUNA Administration Guaifenesin 600 mg 12/10/16 09:00 12/12/16 09:25 Mucinex* PO 600 mg BID SHAUNA Administration Vancomycin HCl 1,000 mg/ 250 mls @ 166.667 mls/hr 12/11/16 16:00 12/12/16 09: 25 Sodium Chloride IVPB 166.667 mls/hr Q8H SHAUNA Administration Metoprolol Succinate 12.5 mg 12/10/16 12:00 12/12/16 09:25 Toprol Xl Tab* PO 12.5 mg DAILY SHAUNA Administration Mometasone Furoate/Formoterol Fumar 2 puff 12/10/16 09:00 12/12/16 08:11 Dulera 200/5 Mdi* INH 2 puff BID SHAUNA Administration Protocol Montelukast Sodium 10 mg 12/10/16 12:00 12/12/16 09:25 Singulair Tab* PO 10 mg DAILY SHAUNA Administration Nystatin 500,000 units 12/11/16 15:34 12/12/16 12:30 Nystatin Suspension* PO 500,000 units QID SHAUNA Administration Pantoprazole Sodium 40 mg 12/12/16 15:00 Protonix Iv* IV Q12H [facility] Pharmacy Consult 1 note 12/10/16 00:53 Vancomycin Per Pharmacy* FOLLOW UP . PRN PER PROTOCOL Pharmacy Profile Note 1 note 12/12/16 15:30 Vancomycin Trough Check FOLLOW UP 12/12/16 15:31 ONCE ONE Prednisone 20 mg 12/10/16 09:00 12/12/16 09:24 Deltasone Tab* PO 20 mg BID SHAUNA Administration Tiotropium [place] 1 cap 12/10/16 09:00 12/12/16 08:11 Spiriva Cap.Inh* INH 1 cap DAILY SHAUNA Administration Vital Signs Temp Pulse Resp BP Pulse Ox 97.2 F 101 16 152/68 96 12/12/16 11:51 12/12/16 13:30 12/12/16 11:51 12/12/16 11:51 12/12/16 13:30 Gen: Pt in NAD HEENT: No Scleral Icterus, Mucous Membranes Moist Neck: NL Appearance and Movements; NL JVP Respiratory: Symmetrical Chest Expansion and Respiratory Effort, Clear to Auscultation Cardiovascular: NL Sounds; No Murmurs; No JVD, RRR Abdominal: NL Sounds; No Tenderness; No Distention Lymphatic: No Cervical Adenopathy Extremities: B/L LE pitting edema to below knees Skin: No Rash or Ulcers Neurological: Alert and Oriented x 3 Laboratory Results - last 24 hr 12/11/16 12/12/16 12/12/16 09:44 05:26 05:26 WBC 23.4 H RBC 2.65 L Hgb 8.0 L Hct 24 L MCV 91 MCH 30 MCHC 33 RDW 14 Plt Count 147 L MPV 7 L Neut % (Auto) 89.5 H Lymph % (Auto) 2.9 L [place] % (Auto) 6.1 Eos % (Auto) 0 Baso % (Auto) 1.5 Absolute Neuts (auto) 21.0 H Absolute Lymphs (auto) 0.7 L Absolute Monos (auto) 1.4 H Absolute Eos (auto) 0 Absolute Basos (auto) 0.3 H Absolute Nucleated RBC 0.79 Nucleated RBC % 3.4 INR (Anticoag Therapy) APTT Sodium 134 Potassium 4.2 Chloride 105 Carbon Dioxide 25 Anion Gap 4 BUN 26 H Creatinine 0.41 L Est GFR ( Amer) 265.8 Est GFR (Non-Af Amer) 206.7 BUN/Creatinine Ratio 63.4 H Glucose 149 H Calcium 7.6 L Cryptococcus Ag Negative 12/12/16 05:26 WBC RBC Hgb Hct MCV MCH MCHC RDW Plt Count MPV Neut % (Auto) Lymph % (Auto) [place] % (Auto) Eos % (Auto) Baso % (Auto) Absolute Neuts (auto) Absolute Lymphs (auto) Absolute Monos (auto) Absolute Eos (auto) Absolute Basos (auto) Absolute Nucleated RBC Nucleated RBC % INR (Anticoag Therapy) 0.97 APTT 20.4 L Sodium Potassium Chloride Carbon Dioxide Anion Gap BUN Creatinine Est GFR ( Amer) Est GFR (Non-Af Amer) BUN/Creatinine Ratio Glucose Calcium Cryptococcus Ag I/R: Pt is 71 yo M with hx of COPD, recent PNA and influenza, AFib on xarelto, prostate cancer, a/w SOB secondary acute blood loss anemia from duodenal ulcer On PPI BID. EGD showed duodenal bulb ulcer, CLOtest negative but may have been impacted by ongoing antibiosis. Shoshanais on hold Received 2 units of PRBC , H&h stable CT chest suggestive of lung mass with central necrosis, radiologically consistent with aspergilloma, t awaiting IR guided biopsy for fungal cx' Sputum cx from 12/04 showed Aspergillus fumigatus, rpt sputum cx from current admission also growing mold. Was on Vanc/Levaquin, abx d/koki. Antifungal therapy as per ID. Wean oxygen as tolerated Continue dulera, spiriva, montelukast, albuterol, prednisone 20 mg bid, Continue weaning fast as pt with no wheezing
[2016-12-12] MEDS ORDERED: Vancomycin Trough Check NOTE FOLLOW UP ONE (15:30)
[2016-12-12] MEDS: Pantoprazole IV* 40 MG IV SCH (16:40)
[2016-12-12] MEDS ORDERED: Voriconazole(*) 200 MG VIAL IV SCH (19:00)
[2016-12-12] MEDS: VORICONAZOLE IVPB SCH (20:11)
[2016-12-12 21:24] LABS: Magnesium 2.2 mg/dL (1.9-2.7)
--- NOTE | 2016-12-12 23:21 | ED ---
Nithin Mckeon Salem, scribed for Jaguar Lindsay MD on 12/09/16 at 2125 . Shortness of Breath - HPI Summary HPI Summary: Patient is a 71 y/o male who presents to the ED per EMS with SOB since a few days. Per EMS, pt has been in the hospital 5 times in the last month for respiratory related complaints. Pt reports dyspnea and weakness, but EMS reports that pt was not experiencing respiratory sx when they arrived. Per EMS, his pulse was at 104 before they arrived and 88 after. They deny conducting any respiratory tx. He is on O2 at home. PMHx significant for COPD. - History of Current Complaint Time Seen by Provider: 12/09/16 20:53 Hx Obtained From: Patient, Family/Transfer Controller, EMS Onset/Duration: Gradual Onset, Lasting Days Timing: Constant Current Severity: Moderate Aggrevating Factors: Nothing Alleviating Factors: Nothing Associated Signs & Symptoms: Negative - Allergy/Home Medications Allergies/Adverse Reactions: Allergies Allergy/AdvReac Type Severity Reaction Status Date / Time Simvastatin Allergy See Comment Verified 12/04/16 07:48 PMH/Surg Hx/FS Hx/Imm Hx Endocrine/Hematology History: Denies: Hx Diabetes, Hx Thyroid Disease Cardiovascular History: Reports: Hx Hypercholesterolemia, Hx Hypertension, Other Cardiovascular Problems/Disorders - Afib Denies: Hx Pacemaker/ICD Respiratory History: Reports: Hx Asthma, Hx Chronic Obstructive Pulmonary Disease (COPD), Hx Pneumonia, Other Respiratory Problems/Disorders - COPD GI History: Denies: Hx Ulcer Musculoskeletal History: Reports: Hx Orthopedic Injury - Right shoulder, & broken left foot (many years ago) Sensory History: Reports: Hx Contacts or Glasses Denies: Hx Hearing Aid, Hx Hearing Problem Opthamlomology History: Reports: Hx Contacts or Glasses Psychiatric History: Denies: Hx Panic Disorder - Cancer History Cancer Type, 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 - Surgical History Surgery Procedure, Year, and Place: PROSTATECTOMY,Tonsilectomy Infectious Disease History: No Infectious Disease History: Denies: Hx Clostridium Difficile, Hx Hepatitis, Hx Human Immunodeficiency Virus (HIV), Hx of Known/Suspected MRSA, Hx Shingles, Hx Tuberculosis, Hx Known/ Suspected VRE, Hx Known/Suspected VRSA, History Other Infectious Disease, Traveled Outside the [place] in Last 30 Days - Family History Known Family History: Positive: Hypertension, Other - CVA - father. - Social History Alcohol Use: None Hx Substance Use: No Substance Use Type: Reports: None Hx Tobacco Use: No Smoking Status (MU): Former Smoker Type: Cigarettes Amount Used/How Often: 30 +years Review of Systems Negative: Fever Positive: Shortness Of Breath Positive: Weakness All Other Systems Reviewed And Are Negative: Yes Physical Exam Vital Signs On Initial Exam: Initial Vitals Pulse Resp BP Pulse Ox 114 23 128/77 98 12/09/16 21:10 12/09/16 21:10 12/09/16 21:10 12/09/16 21:10 - Alan Coma Scale Coma Scale Total: 15 Diagnostics - Vital Signs Vital Signs Temp Pulse Resp BP Pulse Ox 12/09/16 21:17 97.9 F 113 28 128/77 98 12/09/16 21:10 114 23 128/77 98 - Laboratory Lab Results: Lab Results 12/09/16 12/09/16 12/09/16 Range/Units 21:50 21:50 21:50 WBC 26.2 H (3.5-10.8) 10^3/ul RBC 2.71 L (4.0-5.4) 10^6/ul Hgb 8.3 L (14.0-18.0) g/dl Hct 25 L (42-52) % MCV 92 (80-94) fL MCH 31 (27-31) pg MCHC 33 (31-36) g/dl RDW 14 (10.5-15) % Plt Count 221 (150-450) 10^3/ul MPV 8 (7.4-10.4) um3 Immature Gran % (Auto) 8 (0-9) % Neut % (Auto) 87.2 H (38-83) % Lymph % (Auto) 3.2 L (25-47) % [place] % (Auto) 9.3 H (1-9) % Eos % (Auto) 0 (0-6) % Baso % (Auto) 0.3 (0-2) % Absolute Neuts (auto) 22.8 H (1.5-7.7) 10^3/ul Absolute Lymphs (auto) 0.8 L (1.0-4.8) 10^3/ul Absolute Monos (auto) 2.4 H (0-0.8) 10^3/ul Absolute Eos (auto) 0 (0-0.6) 10^3/ul Absolute Basos (auto) 0.1 (0-0.2) 10^3/ul Absolute Nucleated RBC 0.11 10^3/ul Neutrophils % 82 (38-83) % Band Neutrophils % 1 (0-8) % Lymphocytes % 3 L (25-47) % Monocytes % 7 (0-13) % Metamyelocytes % 3 H (0-2) % Myelocytes % 4 H (0-1) % Nucleated RBC % 0.4 Nucleated RBCs/100 WBC 1 H (0-0) Toxic Granulation 2+ Normal RBC Morphology Not Reportable INR (Anticoag Therapy) 1.55 H (0.89-1.11) D-Dimer, Quantitative < 200 (Less Than 230) ng/mL Sodium 131 L (133-145) mmol/L Potassium 4.9 (3.5-5.0) mmol/L Chloride 96 L (101-111) mmol/L Carbon Dioxide 27 (22-32) mmol/L Anion Gap 8 (2-11) mmol/L BUN 81 H (6-24) mg/dL Creatinine 1.25 H (0.67-1.17) mg/dL Est GFR ( Amer) 73.4 (>60) Est GFR (Non-Af Amer) 57.1 (>60) BUN/Creatinine Ratio 64.8 H (8-20) Glucose 251 H (70-100) mg/dL Lactic Acid (0.5-2.0) mmol/L Calcium 8.5 L (8.6-10.3) mg/dL Total Bilirubin 0.40 (0.2-1.0) mg/dL AST 17 (13-39) U/L ALT 28 (7-52) U/L Alkaline Phosphatase 29 L (34-104) U/L Troponin I 0.06 H* (<0.04) ng/mL B-Natriuretic Peptide ( - 100) pg/mL Total Protein 5.3 L (6.4-8.9) g/dL Albumin 2.7 L (3.2-5.2) g/dL Globulin 2.6 (2-4) g/dL Albumin/Globulin Ratio 1.0 (1-3) Blood Type Antibody Screen Crossmatch 04/04/17 04/04/17 04/04/17 Range/Units 21:50 21:50 21:54 WBC (3.5-10.8) 10^3/ul RBC (4.0-5.4) 10^6/ul Hgb (14.0-18.0) g/dl Hct (42-52) % MCV (80-94) fL MCH (27-31) pg MCHC (31-36) g/dl RDW (10.5-15) % Plt Count (150-450) 10^3/ul MPV (7.4-10.4) um3 Immature Gran % (Auto) (0-9) % Neut % (Auto) (38-83) % Lymph % (Auto) (25-47) % [place] % (Auto) (1-9) % Eos % (Auto) (0-6) % Baso % (Auto) (0-2) % Absolute Neuts (auto) (1.5-7.7) 10^3/ul Absolute Lymphs (auto) (1.0-4.8) 10^3/ul Absolute Monos (auto) (0-0.8) 10^3/ul Absolute Eos (auto) (0-0.6) 10^3/ul Absolute Basos (auto) (0-0.2) 10^3/ul Absolute Nucleated RBC 10^3/ul Neutrophils % (38-83) % Band Neutrophils % (0-8) % Lymphocytes % (25-47) % Monocytes % (0-13) % Metamyelocytes % (0-2) % Myelocytes % (0-1) % Nucleated RBC % Nucleated RBCs/100 WBC (0-0) Toxic Granulation Normal RBC Morphology INR (Anticoag Therapy) (0.89-1.11) D-Dimer, Quantitative (Less Than 230) ng/mL Sodium (133-145) mmol/L Potassium (3.5-5.0) mmol/L Chloride (101-111) mmol/L Carbon Dioxide (22-32) mmol/L Anion Gap (2-11) mmol/L BUN (6-24) mg/dL Creatinine (0.67-1.17) mg/dL Est GFR ( Amer) (>60) Est GFR (Non-Af Amer) (>60) BUN/Creatinine Ratio (8-20) Glucose (70-100) mg/dL Lactic Acid 3.6 H* (0.5-2.0) mmol/L Calcium (8.6-10.3) mg/dL Total Bilirubin (0.2-1.0) mg/dL AST (13-39) U/L ALT (7-52) U/L Alkaline Phosphatase (34-104) U/L Troponin I (<0.04) ng/mL B-Natriuretic Peptide 104 H ( - 100) pg/mL Total Protein (6.4-8.9) g/dL Albumin (3.2-5.2) g/dL Globulin (2-4) g/dL Albumin/Globulin Ratio (1-3) Blood Type A Positive Antibody Screen Negative Crossmatch See Detail 12/10/16 Range/Units 09:48 WBC (3.5-10.8) 10^3/ul RBC (4.0-5.4) 10^6/ul Hgb (14.0-18.0) g/dl Hct (42-52) % MCV (80-94) fL MCH (27-31) pg MCHC (31-36) g/dl RDW (10.5-15) % Plt Count (150-450) 10^3/ul MPV (7.4-10.4) um3 Immature Gran % (Auto) (0-9) % Neut % (Auto) (38-83) % Lymph % (Auto) (25-47) % [place] % (Auto) (1-9) % Eos % (Auto) (0-6) % Baso % (Auto) (0-2) % Absolute Neuts (auto) (1.5-7.7) 10^3/ul Absolute Lymphs (auto) (1.0-4.8) 10^3/ul Absolute Monos (auto) (0-0.8) 10^3/ul Absolute Eos (auto) (0-0.6) 10^3/ul Absolute Basos (auto) (0-0.2) 10^3/ul Absolute Nucleated RBC 10^3/ul Neutrophils % (38-83) % Band Neutrophils % (0-8) % Lymphocytes % (25-47) % Monocytes % (0-13) % Metamyelocytes % (0-2) % Myelocytes % (0-1) % Nucleated RBC % Nucleated RBCs/100 WBC (0-0) Toxic Granulation Normal RBC Morphology INR (Anticoag Therapy) (0.89-1.11) D-Dimer, Quantitative (Less Than 230) ng/mL Sodium (133-145) mmol/L Potassium (3.5-5.0) mmol/L Chloride (101-111) mmol/L Carbon Dioxide (22-32) mmol/L Anion Gap (2-11) mmol/L BUN 88 H (6-24) mg/dL Creatinine 1.09 (0.67-1.17) mg/dL Est GFR ( Amer) 86.0 (>60) Est GFR (Non-Af Amer) 66.9 (>60) BUN/Creatinine Ratio (8-20) Glucose (70-100) mg/dL Lactic Acid (0.5-2.0) mmol/L Calcium (8.6-10.3) mg/dL Total Bilirubin (0.2-1.0) mg/dL AST (13-39) U/L ALT (7-52) U/L Alkaline Phosphatase (34-104) U/L Troponin I (<0.04) ng/mL B-Natriuretic Peptide ( - 100) pg/mL Total Protein (6.4-8.9) g/dL Albumin (3.2-5.2) g/dL Globulin (2-4) g/dL Albumin/Globulin Ratio (1-3) Blood Type Antibody Screen Crossmatch Result Diagrams: 12/12/16 05:26 12/12/16 05:26 Lab Statement: Any lab studies that have been ordered have been reviewed, and results considered in the medical decision making process. - Radiology CXR Radiology Interpretation Completed By: Radiologist - IMPRESSION: THERE IS BEEN APPARENT INTERVAL INCREASE IN THE SIZE OF THE LEFT UPPER LOBE PNEUMONIA RELATIVE TO THE DECEMBER 04, 2016 CHEST X-RAY. - EKG 2125 EKG Rhythm: Sinus Tachycardia - @ 113 bpm. Course/Dx - Course Course Of Treatment: 71 y/o male presents per EMS with SOB for the last few days. He reports weakness. EKG reveals sinus tachycardia @ 113 bpm. CXR reveals , per radiology: There is been apparent interval increase in the size of the left upper lobe pneumonia relative to the december 04, 2016 chest x-ray. Lactic acid 3.6. Discussed pt's case with Dr. Collado. He will admit pt. - Diagnoses Provider Diagnoses: COPD (chronic obstructive pulmonary disease) - Physician Notifications Discussed Care of Patient With: Dr. Collado (hospitalist) @ 2150. Will admit. Discharge - Discharge Plan Condition: Stable Disposition: ADMITTED TO [facility] [place] The documentation as recorded by the Nithin davis Salem accurately reflects the service I personally performed and the decisions made by me, Jaguar Lindsay MD.
[2016-12-13] MEDS: Vancomycin(*) 1,000 MG in NS 0.9% 250 ML* 250 ML IVPB SCH ×4 (00:04→23:39)
[2016-12-13] MEDS: Pantoprazole IV* 40 MG IV SCH (03:08)
[2016-12-13 05:54] LABS: Add Diff/Slide Review? Slide Review Added; Comments Flag Yes; Hematocrit 24 % (42-52); Hemoglobin 8.2 g/dl (14.0-18.0); Mean Corpuscular HGB Conc 34 g/dl (31-36); Mean Corpuscular Hemoglobin 30 pg (27-31); Mean Corpuscular Volume 90 fL (80-94); Mean Platelet Volume 8 um3 (7.4-10.4); Red Cell Distribution Width 14 % (10.5-15); White Blood Count 20.6 10^3/ul (3.5-10.8)
[2016-12-13 06:02] LABS: Albumin 2.5 g/dL (3.2-5.2); BUN/Creatinine Ratio 46.8 (8-20); C Reactive Protein 105.4 mg/L (< 5.00); Calcium 7.7 mg/dL (8.6-10.3); EGFR African American 227.1 (>60); EGFR Non-African American 176.6 (>60); Globulin 2.4 g/dL (2-4); Potassium 4.1 mmol/L (3.5-5.0); Total Bilirubin 0.4 mg/dL (0.2-1.0); Total Protein 4.9 g/dL (6.4-8.9)
[2016-12-13 06:48] LABS: Immature Granulocytes 4 % (0-9); Metamyelocytes % 2 % (0-2); Myelocytes % 2 % (0-1); Neutrophil % 88 % (38-83)
[2016-12-13 06:49] LABS: Hypochromasia 1+; Polychromasia 1+
[2016-12-13] MEDS ORDERED: NS 0.9% 250 ML* 250 ML ONE ×3 (09:17→15:22)
[2016-12-13] MEDS: predniSONE TAB* 20 MG PO SCH (09:27)
[2016-12-13] MEDS: guaiFENesin ER TAB 600 MG PO SCH ×2 (09:27→20:52)
[2016-12-13] MEDS: Montelukast Sodium TAB* 10 MG PO SCH (09:27)
[2016-12-13] MEDS: Nystatin SUSPENSION* 100000 UNITS/ML 5 ML UDC PO SCH ×4 (09:27→20:47)
[2016-12-13] MEDS: amLODIPine TAB* 5 MG PO SCH (09:27)
[2016-12-13] MEDS: Metoprolol Succinate XL TAB* 25 MG PO SCH (09:28)
[2016-12-13] MEDS: Tiotropium CAP.INH* CAP.INH/18 MCG INH SCH (09:28)
[2016-12-13] MEDS: Mometasone/Formoter 200/5 MDI INH SCH ×2 (09:29→19:59)
[2016-12-13] MEDS ORDERED: Furosemide IV* 10 MG/ML 10 ML VIAL (100 MG) IV ONE (09:54)
--- NOTE | 2016-12-13 09:55 | PN ---
Subjective Date of Service: 12/13/16 Interval History: Patient seen this morning. Says he continues to feel better. Still with cough productive of brown sputum, no further blood tinge. Ambulated with PT yesterday , fatigued easily. Says he urinated a bit, still with some LE edema. Hesistant to wean down prednisone, agreeable for tomorrow. Family History: Unchanged from Admission Social History: Unchanged from Admission Past Medical History: Unchanged from Admission Objective Active Medications: Albuterol (Ventolin 2.5 Mg/3 Ml Neb.Mariella*) 2.5 mg INH Q4H PRN Albuterol (Ventolin Hfa Inhaler*) 2 puff INH Q4H PRN Amlodipine Besylate (Norvasc Tab*) 10 mg PO DAILY [facility] Guaifenesin (Mucinex*) 600 mg PO BID [facility] Vancomycin HCl 1,000 mg/ (Sodium Chloride) 250 mls @ 166.667 mls/hr IVPB Q8H [facility] Voriconazole 500 mg/ Sodium (Chloride) 300 mls @ 150 mls/hr IVPB Q12H [facility] Voriconazole 300 mg/ Sodium (Chloride) 130 mls @ 65 mls/hr IVPB Q12H [facility] Metoprolol Succinate (Toprol Xl Tab*) 12.5 mg PO DAILY [facility] Mometasone Furoate/Formoterol Fumar (Dulera 200/5 Mdi*) 2 puff INH BID [facility] Montelukast Sodium (Singulair Tab*) 10 mg PO DAILY [facility] Nystatin (Nystatin Suspension*) 500,000 units PO QID [facility] Omeprazole (Prilosec Cap*) 20 mg PO BID [facility] Pharmacy Consult (Vancomycin Per Pharmacy*) 1 note FOLLOW UP . PRN Pharmacy Profile Note (Vancomycin Trough Check) 1 note FOLLOW UP 0730 ONE Prednisone (Deltasone Tab*) 20 mg PO DAILY [facility] Tiotropium [place] (Spiriva Cap.Inh*) 1 cap INH DAILY [facility] Vital Signs 12/12/16 12/12/16 12/12/16 11:51 11:55 13:30 Temperature 97.2 F Pulse Rate 117 101 Respiratory 16 Rate Blood Pressure 152/68 (mmHg) O2 Sat by Pulse 83 95 96 Oximetry 12/12/16 12/12/16 12/12/16 15:27 16:00 19:25 Temperature 97.7 F 98.0 F Pulse Rate 97 93 Respiratory 17 19 Rate Blood Pressure 151/67 148/61 (mmHg) O2 Sat by Pulse 96 95 97 Oximetry 12/12/16 12/12/16 12/12/16 20:00 21:38 23:46 Temperature 97.6 F Pulse Rate 90 87 Respiratory 20 18 20 Rate Blood Pressure 139/58 (mmHg) O2 Sat by Pulse 95 94 Oximetry 12/13/16 12/13/16 12/13/16 00:00 03:45 07:50 Temperature 97.2 F 97.7 F Pulse Rate 80 85 Respiratory 16 16 Rate Blood Pressure 145/61 139/64 (mmHg) O2 Sat by Pulse 94 97 90 Oximetry Oxygen Devices in Use Now: Nasal Cannula - 2L Appearance: Elderly, M, laying in bed in NAD Eyes: No Scleral Icterus Ears/Nose/Mouth/Throat: Mucous Membranes Moist Neck: NL Appearance and Movements; NL JVP Respiratory: Symmetrical Chest Expansion and Respiratory Effort, Clear to Auscultation Cardiovascular: NL Sounds; No Murmurs; No JVD, RRR Abdominal: NL Sounds; No Tenderness; No Distention Lymphatic: No Cervical Adenopathy Extremities: - - B/L LE pitting edema to below knees Skin: No Rash or Ulcers Neurological: Alert and Oriented x 3 Result Diagrams: 12/13/16 05:36 12/13/16 05:36 Additional Lab and Data: Lab Results 12/09/16 12/09/16 12/09/16 Range/Units 21:50 21:50 21:50 WBC 26.2 H (3.5-10.8) 10^3/ul RBC 2.71 L (4.0-5.4) 10^6/ul Hgb 8.3 L (14.0-18.0) g/dl Hct 25 L (42-52) % MCV 92 (80-94) fL MCH 31 (27-31) pg MCHC 33 (31-36) g/dl RDW 14 (10.5-15) % Plt Count 221 (150-450) 10^3/ul MPV 8 (7.4-10.4) um3 Immature Gran % (Auto) 8 (0-9) % Neut % (Auto) 87.2 H (38-83) % Lymph % (Auto) 3.2 L (25-47) % [place] % (Auto) 9.3 H (1-9) % Eos % (Auto) 0 (0-6) % Baso % (Auto) 0.3 (0-2) % Absolute Neuts (auto) 22.8 H (1.5-7.7) 10^3/ul Absolute Lymphs (auto) 0.8 L (1.0-4.8) 10^3/ul Absolute Monos (auto) 2.4 H (0-0.8) 10^3/ul Absolute Eos (auto) 0 (0-0.6) 10^3/ul Absolute Basos (auto) 0.1 (0-0.2) 10^3/ul Absolute Nucleated RBC 0.11 10^3/ul Neutrophils % 82 (38-83) % Band Neutrophils % 1 (0-8) % Lymphocytes % 3 L (25-47) % Monocytes % 7 (0-13) % Metamyelocytes % 3 H (0-2) % Myelocytes % 4 H (0-1) % Nucleated RBC % 0.4 Nucleated RBCs/100 WBC 1 H (0-0) Toxic Granulation 2+ Normal RBC Morphology Not Reportable INR (Anticoag Therapy) 1.55 H (0.89-1.11) D-Dimer, Quantitative < 200 (Less Than 230) ng/mL Sodium 131 L (133-145) mmol/L Potassium 4.9 (3.5-5.0) mmol/L Chloride 96 L (101-111) mmol/L Carbon Dioxide 27 (22-32) mmol/L Anion Gap 8 (2-11) mmol/L BUN 81 H (6-24) mg/dL Creatinine 1.25 H (0.67-1.17) mg/dL Est GFR ( Amer) 73.4 (>60) Est GFR (Non-Af Amer) 57.1 (>60) BUN/Creatinine Ratio 64.8 H (8-20) Glucose 251 H (70-100) mg/dL Lactic Acid (0.5-2.0) mmol/L Calcium 8.5 L (8.6-10.3) mg/dL Total Bilirubin 0.40 (0.2-1.0) mg/dL AST 17 (13-39) U/L ALT 28 (7-52) U/L Alkaline Phosphatase 29 L (34-104) U/L Troponin I 0.06 H* (<0.04) ng/mL B-Natriuretic Peptide ( - 100) pg/mL Total Protein 5.3 L (6.4-8.9) g/dL Albumin 2.7 L (3.2-5.2) g/dL Globulin 2.6 (2-4) g/dL Albumin/Globulin Ratio 1.0 (1-3) Blood Type Antibody Screen Crossmatch 12/09/16 12/09/16 12/09/16 Range/Units 21:50 21:50 21:54 WBC (3.5-10.8) 10^3/ul RBC (4.0-5.4) 10^6/ul Hgb (14.0-18.0) g/dl Hct (42-52) % MCV (80-94) fL MCH (27-31) pg MCHC (31-36) g/dl RDW (10.5-15) % Plt Count (150-450) 10^3/ul MPV (7.4-10.4) um3 Immature Gran % (Auto) (0-9) % Neut % (Auto) (38-83) % Lymph % (Auto) (25-47) % [place] % (Auto) (1-9) % Eos % (Auto) (0-6) % Baso % (Auto) (0-2) % Absolute Neuts (auto) (1.5-7.7) 10^3/ul Absolute Lymphs (auto) (1.0-4.8) 10^3/ul Absolute Monos (auto) (0-0.8) 10^3/ul Absolute Eos (auto) (0-0.6) 10^3/ul Absolute Basos (auto) (0-0.2) 10^3/ul Absolute Nucleated RBC 10^3/ul Neutrophils % (38-83) % Band Neutrophils % (0-8) % Lymphocytes % (25-47) % Monocytes % (0-13) % Metamyelocytes % (0-2) % Myelocytes % (0-1) % Nucleated RBC % Nucleated RBCs/100 WBC (0-0) Toxic Granulation Normal RBC Morphology INR (Anticoag Therapy) (0.89-1.11) D-Dimer, Quantitative (Less Than 230) ng/mL Sodium (133-145) mmol/L Potassium (3.5-5.0) mmol/L Chloride (101-111) mmol/L Carbon Dioxide (22-32) mmol/L Anion Gap (2-11) mmol/L BUN (6-24) mg/dL Creatinine (0.67-1.17) mg/dL Est GFR ( Amer) (>60) Est GFR (Non-Af Amer) (>60) BUN/Creatinine Ratio (8-20) Glucose (70-100) mg/dL Lactic Acid 3.6 H* (0.5-2.0) mmol/L Calcium (8.6-10.3) mg/dL Total Bilirubin (0.2-1.0) mg/dL AST (13-39) U/L ALT (7-52) U/L Alkaline Phosphatase (34-104) U/L Troponin I (<0.04) ng/mL B-Natriuretic Peptide 104 H ( - 100) pg/mL Total Protein (6.4-8.9) g/dL Albumin (3.2-5.2) g/dL Globulin (2-4) g/dL Albumin/Globulin Ratio (1-3) Blood Type A Positive Antibody Screen Negative Crossmatch See Detail 12/10/16 Range/Units 09:48 WBC (3.5-10.8) 10^3/ul RBC (4.0-5.4) 10^6/ul Hgb (14.0-18.0) g/dl Hct (42-52) % MCV (80-94) fL MCH (27-31) pg MCHC (31-36) g/dl RDW (10.5-15) % Plt Count (150-450) 10^3/ul MPV (7.4-10.4) um3 Immature Gran % (Auto) (0-9) % Neut % (Auto) (38-83) % Lymph % (Auto) (25-47) % [place] % (Auto) (1-9) % Eos % (Auto) (0-6) % Baso % (Auto) (0-2) % Absolute Neuts (auto) (1.5-7.7) 10^3/ul Absolute Lymphs (auto) (1.0-4.8) 10^3/ul Absolute Monos (auto) (0-0.8) 10^3/ul Absolute Eos (auto) (0-0.6) 10^3/ul Absolute Basos (auto) (0-0.2) 10^3/ul Absolute Nucleated RBC 10^3/ul Neutrophils % (38-83) % Band Neutrophils % (0-8) % Lymphocytes % (25-47) % Monocytes % (0-13) % Metamyelocytes % (0-2) % Myelocytes % (0-1) % Nucleated RBC % Nucleated RBCs/100 WBC (0-0) Toxic Granulation Normal RBC Morphology INR (Anticoag Therapy) (0.89-1.11) D-Dimer, Quantitative (Less Than 230) ng/mL Sodium (133-145) mmol/L Potassium (3.5-5.0) mmol/L Chloride (101-111) mmol/L Carbon Dioxide (22-32) mmol/L Anion Gap (2-11) mmol/L BUN 88 H (6-24) mg/dL Creatinine 1.09 (0.67-1.17) mg/dL Est GFR ( Amer) 86.0 (>60) Est GFR (Non-Af Amer) 66.9 (>60) BUN/Creatinine Ratio (8-20) Glucose (70-100) mg/dL Lactic Acid (0.5-2.0) mmol/L Calcium (8.6-10.3) mg/dL Total Bilirubin (0.2-1.0) mg/dL AST (13-39) U/L ALT (7-52) U/L Alkaline Phosphatase (34-104) U/L Troponin I (<0.04) ng/mL B-Natriuretic Peptide ( - 100) pg/mL Total Protein (6.4-8.9) g/dL Albumin (3.2-5.2) g/dL Globulin (2-4) g/dL Albumin/Globulin Ratio (1-3) Blood Type Antibody Screen Crossmatch Microbiology and Other Data: Microbiology 12/10/16 03:50 Legionella Urinary Antigen - Final Urine Negative Legionella Streptococcus pneumoniae Ag Screen - Final Negative S. pneumo Antigen Assess/Plan/Problems-Billing Assessment: SOB in a 71 yo M with hx of COPD, recent PNA and influenza, AFib on xarelto, prostate cancer, - Patient Problems (1) Pneumonia Current Visit: No Comment: Appreciate ID and Pulm consults. 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 Continue Vancomycin. Voriconazole started by ID on 12/12. Awaiting percunatenous biopsy as patient has not had enough time for Eliquis to clear out of the system, to be done on 12/15. CT shows cavitary process, possibly necrotic. Spoke with Micro who states Mold results sent to [place] from came back as Aspergillus fumigatus, also sputum cx from this admission has similar appearance. Wean oxygen as able. (2) SOB (shortness of breath) Current Visit: Yes Comment: Multifactorial although may be mostly driven by anemia likely 2/2 GIB. Appreciate GI assistance. Continue PPI BID, will switch to oral today. EGD shows duodenal bulb ulcer, CLOtest negative but may have been impacted by ongoing antibiosis. Will need repeat EGD as outpatient. Holding Eliquis. Received 2 units of PRBC total. Hb stable, no clear evidence of further bleeding. Continue to monitor H/H, transfuse as needed. (3) COPD (chronic obstructive pulmonary disease) Current Visit: No Comment: Continue dulera, spiriva, montelukast, albuterol, prednisone 20 mg bid, wean to 20 mg daily beginning on 12/14. Wean O2 as able. (4) Atrial fibrillation Current Visit: No Comment: Paroxysmal. Continue metoprolol. Holding Eliquis. Troponins stable. Repeat Lasix 40 mg IV again today for LE edema. (5) DVT prophylaxis Current Visit: No Comment: SCDs Status and Disposition: Awaiting biopsy.
[2016-12-13] MEDS: VORICONAZOLE IVPB SCH ×2 (11:15→20:11)
[2016-12-13] MEDS: NS 0.9% IVPB SCH ×2 (11:15→20:11)
[2016-12-13] MEDS: Omeprazole CAP* 20 MG PO SCH ×2 (12:15→20:46)
[2016-12-13] MEDS ORDERED: Voriconazole(*) 200 MG VIAL IV SCH (19:00)
[2016-12-13] MEDS ORDERED: predniSONE TAB* 20 MG PO ONE (21:00)
[2016-12-14] MEDS ORDERED: Vancomycin Trough Check NOTE FOLLOW UP ONE (07:30)
[2016-12-14] MEDS: Metoprolol Succinate XL TAB* 25 MG PO SCH (08:07)
[2016-12-14] MEDS: guaiFENesin ER TAB 600 MG PO SCH ×2 (08:07→21:30)
[2016-12-14] MEDS: NS 0.9% IVPB SCH ×2 (08:07→21:27)
[2016-12-14] MEDS: predniSONE TAB* 20 MG PO SCH (08:07)
[2016-12-14] MEDS: VORICONAZOLE IVPB SCH ×2 (08:07→21:27)
[2016-12-14] MEDS: amLODIPine TAB* 5 MG PO SCH (08:07)
[2016-12-14] MEDS: Omeprazole CAP* 20 MG PO SCH ×2 (08:07→21:29)
[2016-12-14] MEDS: Nystatin SUSPENSION* 100000 UNITS/ML 5 ML UDC PO SCH ×4 (08:07→21:28)
[2016-12-14] MEDS: Montelukast Sodium TAB* 10 MG PO SCH (08:07)
[2016-12-14 08:26] LABS: EGFR Non-African American 190.5 (>60)
[2016-12-14 08:43] LABS: Vancomycin Trough 16.1 mcg/mL
[2016-12-14] MEDS: Mometasone/Formoter 200/5 MDI INH SCH ×2 (08:50→20:35)
[2016-12-14] MEDS ORDERED: Tiotropium CAP.INH* CAP.INH/18 MCG ONE (08:53)
[2016-12-14] MEDS: Tiotropium CAP.INH* CAP.INH/18 MCG INH SCH (08:53)
[2016-12-14] MEDS: Vancomycin(*) 1,000 MG in NS 0.9% 250 ML* 250 ML IVPB SCH ×2 (09:08→16:26)
[2016-12-14] MEDS ORDERED: Furosemide IV* 10 MG/ML 10 ML VIAL (100 MG) IV ONE (11:57)
--- NOTE | 2016-12-14 15:20 | PN ---
Subjective Date of Service: 12/14/16 Interval History: Feels much better. Less cough. c/o b/l LE's edema and marked edema of hands with "seeping fluid from left arm" Had blurry vision during Voriconasole infusion(transient resolving within minutes) Family History: Unchanged from Admission Social History: Unchanged from Admission Past Medical History: Unchanged from Admission Objective Active Medications: Albuterol (Ventolin 2.5 Mg/3 Ml Neb.Mariella*) 2.5 mg INH Q4H PRN PRN Reason: WHEEZING Albuterol (Ventolin Hfa Inhaler*) 2 puff INH Q4H PRN PRN Reason: SHORTNESS OF BREATH Last Admin: 12/13/16 20:00 Dose: 2 puff Amlodipine Besylate (Norvasc Tab*) 10 mg PO DAILY [facility] Last Admin: 12/14/16 08:07 Dose: 10 mg Guaifenesin (Mucinex*) 600 mg PO BID [facility] Last Admin: 12/14/16 08:07 Dose: 600 mg Vancomycin HCl 1,000 mg/ (Sodium Chloride) 250 mls @ 166.667 mls/hr IVPB Q8H [facility] Last Admin: 12/14/16 09:08 Dose: 166.667 mls/hr Voriconazole 300 mg/ Sodium (Chloride) 130 mls @ 65 mls/hr IVPB Q12H [facility] Last Admin: 12/14/16 08:07 Dose: 65 mls/hr Metoprolol Succinate (Toprol Xl Tab*) 12.5 mg PO DAILY [facility] Last Admin: 12/14/16 08:07 Dose: 12.5 mg Mometasone Furoate/Formoterol Fumar (Dulera 200/5 Mdi*) 2 puff INH BID [facility] PRN Reason: Protocol Last Admin: 12/14/16 08:50 Dose: 2 puff Montelukast Sodium (Singulair Tab*) 10 mg PO DAILY [facility] Last Admin: 12/14/16 08:07 Dose: 10 mg Nystatin (Nystatin Suspension*) 500,000 units PO QID [facility] Last Admin: 12/14/16 12:44 Dose: 500,000 units Omeprazole (Prilosec Cap*) 20 mg PO BID [facility] Last Admin: 12/14/16 08:07 Dose: 20 mg Pharmacy Consult (Vancomycin Per Pharmacy*) 1 note FOLLOW UP . PRN PRN Reason: PER PROTOCOL Pharmacy Profile Note (Vancomycin Trough Check) 1 note FOLLOW UP 0730 ONE Stop: 12/17/16 07:31 Prednisone (Deltasone Tab*) 20 mg PO DAILY [facility] Last Admin: 12/14/16 08:07 Dose: 20 mg Tiotropium [place] (Spiriva Cap.Inh*) 1 cap INH DAILY [facility] Last Admin: 12/14/16 08:53 Dose: 1 cap Vital Signs 12/13/16 12/13/16 12/13/16 15:26 16:00 16:36 Temperature 97.2 F Pulse Rate 88 Respiratory 18 Rate Blood Pressure 145/67 (mmHg) O2 Sat by Pulse 97 97 97 Oximetry 12/13/16 12/13/16 12/13/16 19:24 20:01 20:05 Temperature 98 F Pulse Rate 90 86 Respiratory 18 18 18 Rate Blood Pressure 152/60 (mmHg) O2 Sat by Pulse 95 97 Oximetry 12/14/16 12/14/16 12/14/16 01:10 03:46 07:59 Temperature 97.5 F 97.6 F 98.2 F Pulse Rate 86 78 79 Respiratory 20 20 16 Rate Blood Pressure 147/54 148/56 126/62 (mmHg) O2 Sat by Pulse 91 91 94 Oximetry 12/14/16 12/14/16 12/14/16 08:00 08:45 12:21 Temperature 97.7 F Pulse Rate 88 Respiratory 18 16 Rate Blood Pressure 130/73 (mmHg) O2 Sat by Pulse 94 95 Oximetry 12/14/16 14:29 Temperature Pulse Rate 79 Respiratory 16 Rate Blood Pressure (mmHg) O2 Sat by Pulse 94 Oximetry Oxygen Devices in Use Now: Nasal Cannula - 2L Appearance: 71 yo M in nAd, aAOx3 Eyes: No Scleral Icterus, PERRLA Ears/Nose/Mouth/Throat: NL Teeth, Lips, Gums, Mucous Membranes Moist Neck: NL Appearance and Movements; NL JVP, Trachea Midline Respiratory: Symmetrical Chest Expansion and Respiratory Effort, Clear to Auscultation Cardiovascular: NL Sounds; No Murmurs; No JVD Abdominal: NL Sounds; No Tenderness; No Distention, No Hepatosplenomegaly Extremities: No Clubbing, Cyanosis, - - generalized edema +2 in b/l LE's. anasarca in both arms. Skin: No Rash or Ulcers, No Nodules or Sclerosis Neurological: Alert and Oriented x 3, NL Muscle Strength and Tone Result Diagrams: 12/13/16 05:36 12/14/16 07:44 Additional Lab and Data: Lab Results 12/09/16 12/09/16 12/09/16 Range/Units 21:50 21:50 21:50 WBC 26.2 H (3.5-10.8) 10^3/ul RBC 2.71 L (4.0-5.4) 10^6/ul Hgb 8.3 L (14.0-18.0) g/dl Hct 25 L (42-52) % MCV 92 (80-94) fL MCH 31 (27-31) pg MCHC 33 (31-36) g/dl RDW 14 (10.5-15) % Plt Count 221 (150-450) 10^3/ul MPV 8 (7.4-10.4) um3 Immature Gran % (Auto) 8 (0-9) % Neut % (Auto) 87.2 H (38-83) % Lymph % (Auto) 3.2 L (25-47) % [place] % (Auto) 9.3 H (1-9) % Eos % (Auto) 0 (0-6) % Baso % (Auto) 0.3 (0-2) % Absolute Neuts (auto) 22.8 H (1.5-7.7) 10^3/ul Absolute Lymphs (auto) 0.8 L (1.0-4.8) 10^3/ul Absolute Monos (auto) 2.4 H (0-0.8) 10^3/ul Absolute Eos (auto) 0 (0-0.6) 10^3/ul Absolute Basos (auto) 0.1 (0-0.2) 10^3/ul Absolute Nucleated RBC 0.11 10^3/ul Neutrophils % 82 (38-83) % Band Neutrophils % 1 (0-8) % Lymphocytes % 3 L (25-47) % Monocytes % 7 (0-13) % Metamyelocytes % 3 H (0-2) % Myelocytes % 4 H (0-1) % Nucleated RBC % 0.4 Nucleated RBCs/100 WBC 1 H (0-0) Toxic Granulation 2+ Normal RBC Morphology Not Reportable INR (Anticoag Therapy) 1.55 H (0.89-1.11) D-Dimer, Quantitative < 200 (Less Than 230) ng/mL Sodium 131 L (133-145) mmol/L Potassium 4.9 (3.5-5.0) mmol/L Chloride 96 L (101-111) mmol/L Carbon Dioxide 27 (22-32) mmol/L Anion Gap 8 (2-11) mmol/L BUN 81 H (6-24) mg/dL Creatinine 1.25 H (0.67-1.17) mg/dL Est GFR ( Amer) 73.4 (>60) Est GFR (Non-Af Amer) 57.1 (>60) BUN/Creatinine Ratio 64.8 H (8-20) Glucose 251 H (70-100) mg/dL Lactic Acid (0.5-2.0) mmol/L Calcium 8.5 L (8.6-10.3) mg/dL Total Bilirubin 0.40 (0.2-1.0) mg/dL AST 17 (13-39) U/L ALT 28 (7-52) U/L Alkaline Phosphatase 29 L (34-104) U/L Troponin I 0.06 H* (<0.04) ng/mL B-Natriuretic Peptide ( - 100) pg/mL Total Protein 5.3 L (6.4-8.9) g/dL Albumin 2.7 L (3.2-5.2) g/dL Globulin 2.6 (2-4) g/dL Albumin/Globulin Ratio 1.0 (1-3) Blood Type Antibody Screen Crossmatch 12/09/16 12/09/16 12/09/16 Range/Units 21:50 21:50 21:54 WBC (3.5-10.8) 10^3/ul RBC (4.0-5.4) 10^6/ul Hgb (14.0-18.0) g/dl Hct (42-52) % MCV (80-94) fL MCH (27-31) pg MCHC (31-36) g/dl RDW (10.5-15) % Plt Count (150-450) 10^3/ul MPV (7.4-10.4) um3 Immature Gran % (Auto) (0-9) % Neut % (Auto) (38-83) % Lymph % (Auto) (25-47) % [place] % (Auto) (1-9) % Eos % (Auto) (0-6) % Baso % (Auto) (0-2) % Absolute Neuts (auto) (1.5-7.7) 10^3/ul Absolute Lymphs (auto) (1.0-4.8) 10^3/ul Absolute Monos (auto) (0-0.8) 10^3/ul Absolute Eos (auto) (0-0.6) 10^3/ul Absolute Basos (auto) (0-0.2) 10^3/ul Absolute Nucleated RBC 10^3/ul Neutrophils % (38-83) % Band Neutrophils % (0-8) % Lymphocytes % (25-47) % Monocytes % (0-13) % Metamyelocytes % (0-2) % Myelocytes % (0-1) % Nucleated RBC % Nucleated RBCs/100 WBC (0-0) Toxic Granulation Normal RBC Morphology INR (Anticoag Therapy) (0.89-1.11) D-Dimer, Quantitative (Less Than 230) ng/mL Sodium (133-145) mmol/L Potassium (3.5-5.0) mmol/L Chloride (101-111) mmol/L Carbon Dioxide (22-32) mmol/L Anion Gap (2-11) mmol/L BUN (6-24) mg/dL Creatinine (0.67-1.17) mg/dL Est GFR ( Amer) (>60) Est GFR (Non-Af Amer) (>60) BUN/Creatinine Ratio (8-20) Glucose (70-100) mg/dL Lactic Acid 3.6 H* (0.5-2.0) mmol/L Calcium (8.6-10.3) mg/dL Total Bilirubin (0.2-1.0) mg/dL AST (13-39) U/L ALT (7-52) U/L Alkaline Phosphatase (34-104) U/L Troponin I (<0.04) ng/mL B-Natriuretic Peptide 104 H ( - 100) pg/mL Total Protein (6.4-8.9) g/dL Albumin (3.2-5.2) g/dL Globulin (2-4) g/dL Albumin/Globulin Ratio (1-3) Blood Type A Positive Antibody Screen Negative Crossmatch See Detail 12/10/16 Range/Units 09:48 WBC (3.5-10.8) 10^3/ul RBC (4.0-5.4) 10^6/ul Hgb (14.0-18.0) g/dl Hct (42-52) % MCV (80-94) fL MCH (27-31) pg MCHC (31-36) g/dl RDW (10.5-15) % Plt Count (150-450) 10^3/ul MPV (7.4-10.4) um3 Immature Gran % (Auto) (0-9) % Neut % (Auto) (38-83) % Lymph % (Auto) (25-47) % [place] % (Auto) (1-9) % Eos % (Auto) (0-6) % Baso % (Auto) (0-2) % Absolute Neuts (auto) (1.5-7.7) 10^3/ul Absolute Lymphs (auto) (1.0-4.8) 10^3/ul Absolute Monos (auto) (0-0.8) 10^3/ul Absolute Eos (auto) (0-0.6) 10^3/ul Absolute Basos (auto) (0-0.2) 10^3/ul Absolute Nucleated RBC 10^3/ul Neutrophils % (38-83) % Band Neutrophils % (0-8) % Lymphocytes % (25-47) % Monocytes % (0-13) % Metamyelocytes % (0-2) % Myelocytes % (0-1) % Nucleated RBC % Nucleated RBCs/100 WBC (0-0) Toxic Granulation Normal RBC Morphology INR (Anticoag Therapy) (0.89-1.11) D-Dimer, Quantitative (Less Than 230) ng/mL Sodium (133-145) mmol/L Potassium (3.5-5.0) mmol/L Chloride (101-111) mmol/L Carbon Dioxide (22-32) mmol/L Anion Gap (2-11) mmol/L BUN 88 H (6-24) mg/dL Creatinine 1.09 (0.67-1.17) mg/dL Est GFR ( Amer) 86.0 (>60) Est GFR (Non-Af Amer) 66.9 (>60) BUN/Creatinine Ratio (8-20) Glucose (70-100) mg/dL Lactic Acid (0.5-2.0) mmol/L Calcium (8.6-10.3) mg/dL Total Bilirubin (0.2-1.0) mg/dL AST (13-39) U/L ALT (7-52) U/L Alkaline Phosphatase (34-104) U/L Troponin I (<0.04) ng/mL B-Natriuretic Peptide ( - 100) pg/mL Total Protein (6.4-8.9) g/dL Albumin (3.2-5.2) g/dL Globulin (2-4) g/dL Albumin/Globulin Ratio (1-3) Blood Type Antibody Screen Crossmatch Microbiology and Other Data: Microbiology 12/10/16 03:50 Legionella Urinary Antigen - Final Urine Negative Legionella Streptococcus pneumoniae Ag Screen - Final Negative S. pneumo Antigen Assess/Plan/Problems-Billing Assessment: SOB in a 71 yo M with hx of COPD, recent PNA and influenza, AFib on xarelto, prostate cancer, - Patient Problems (1) Pneumonia Comment: Appreciate ID and Pulm consults. 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 Continue Vancomycin. Voriconazole started by ID on 12/12( pt had cc/ o transient blurry vision which resolved within minutes of initiation of infusion-edeucated that it is a common- up to 19% side effect). Awaiting percunatenous biopsy as patient has not had enough time for Eliquis to clear out of the system, to be done on 12/15. CT shows cavitary process, possibly necrotic. Spoke with Micro who states Mold results sent to [place] from 12/04 came back as Aspergillus fumigatus, also sputum cx from this admission has similar appearance. Wean oxygen as able. (2) SOB (shortness of breath) Comment: Multifactorial although may be mostly driven by anemia likely 2/2 GIB. (3) GI bleed Comment: Appreciate GI assistance. EGD on 12/11/16 showed duodenal uulcer. Continue PPI BID, will switch to oral today. CLOtest negative but may have been impacted by ongoing antibiotics. Will need repeat EGD as outpatient. Holding Eliquis. Received 2 units of PRBC total. Hb stable, no clear evidence of further bleeding. Continue to monitor H/H, transfuse as needed. (4) COPD (chronic obstructive pulmonary disease) Comment: Continue dulera, spiriva, montelukast, albuterol, prednisone 20 mg bid , wean to 20 mg daily beginning on 12/14. Wean O2 as able. (5) Atrial fibrillation Comment: Paroxysmal. Continue metoprolol. Holding Eliquis. Troponins stable. Repeat Lasix 40 mg IV again today for LE edema and anasarca (6) DVT prophylaxis Comment: SCDs-anticoagulation contraindicated in light of GI bleed. Status and Disposition: Awaiting biopsy.
[2016-12-15] MEDS: Vancomycin(*) 1,000 MG in NS 0.9% 250 ML* 250 ML IVPB SCH ×4 (00:15→23:57)
[2016-12-15 06:19] LABS: Hematocrit 24 % (42-52); Hemoglobin 8.1 g/dl (14.0-18.0); Mean Corpuscular HGB Conc 33 g/dl (31-36); Mean Corpuscular Hemoglobin 30 pg (27-31); Mean Corpuscular Volume 91 fL (80-94); Mean Platelet Volume 8 um3 (7.4-10.4); Red Blood Count 2.67 10^6/ul (4.0-5.4); Red Cell Distribution Width 14 % (10.5-15); White Blood Count 16.4 10^3/ul (3.5-10.8)
[2016-12-15 06:25] LABS: Add Diff/Slide Review? Slide Review Added; Comments Flag Yes
[2016-12-15 06:42] LABS: BUN/Creatinine Ratio 31.4 (8-20); Calcium 7.5 mg/dL (8.6-10.3); EGFR African American 206.6 (>60); EGFR Non-African American 160.7 (>60); Potassium 3.1 mmol/L (3.5-5.0)
[2016-12-15 06:45] LABS: Immature Granulocytes 3 % (0-9); Metamyelocytes % 1 % (0-2); Myelocytes % 2 % (0-1); Neutrophil % 78 % (38-83)
[2016-12-15 06:46] LABS: Basophilic Stippling 1+; Macrocytosis 1+; Microcytosis 1+; Polychromasia 1+; Tear Drop Cells 1+; Toxic Granulation 2+
[2016-12-15] MEDS ORDERED: Potassium Chlor TAB* 20 MEQ TAB.ER PO ONE (07:37)
[2016-12-15] MEDS: NS 0.9% IVPB SCH ×2 (08:43→20:26)
[2016-12-15] MEDS: VORICONAZOLE IVPB SCH ×2 (08:43→20:26)
[2016-12-15] MEDS: Metoprolol Succinate XL TAB* 25 MG PO SCH (08:45)
[2016-12-15] MEDS: Omeprazole CAP* 20 MG PO SCH ×2 (08:46→20:53)
[2016-12-15] MEDS: amLODIPine TAB* 5 MG PO SCH (08:46)
[2016-12-15] MEDS: Nystatin SUSPENSION* 100000 UNITS/ML 5 ML UDC PO SCH ×4 (08:47→20:55)
[2016-12-15] MEDS: Montelukast Sodium TAB* 10 MG PO SCH (08:47)
[2016-12-15] MEDS: guaiFENesin ER TAB 600 MG PO SCH ×2 (08:47→20:55)
[2016-12-15] MEDS ORDERED: amLODIPine TAB* 5 MG ONE (08:52)
[2016-12-15] MEDS: Mometasone/Formoter 200/5 MDI INH SCH ×2 (11:09→21:33)
[2016-12-15] MEDS: Tiotropium CAP.INH* CAP.INH/18 MCG INH SCH (11:09)
--- NOTE | 2016-12-15 12:06 | PN ---
Subjective Date of Service: 12/15/16 Interval History: pt feels well. Generalized edema is improving. Pt c/o "COPD" at night and requests his steroids to be ordered at [facility]. Counseled pt that he most likely has fluid overload symptoms and not COPD. Nevertheless, pt insists on continuation of steroids at night. Informed pt on the need to taper down steroids due to recent GI bleed. In fact pt still has black BM's and a stool sample from last night was still reported heme +. Family History: Unchanged from Admission Social History: Unchanged from Admission Past Medical History: Unchanged from Admission Objective Active Medications: Albuterol (Ventolin 2.5 Mg/3 Ml Neb.Mariella*) 2.5 mg INH Q4H PRN PRN Reason: WHEEZING Albuterol (Ventolin Hfa Inhaler*) 2 puff INH Q4H PRN PRN Reason: SHORTNESS OF BREATH Last Admin: 12/13/16 20:00 Dose: 2 puff Amlodipine Besylate (Norvasc Tab*) 10 mg PO DAILY [facility] Last Admin: 12/15/16 08:46 Dose: 10 mg Guaifenesin (Mucinex*) 600 mg PO BID [facility] Last Admin: 12/15/16 08:47 Dose: 600 mg Vancomycin HCl 1,000 mg/ (Sodium Chloride) 250 mls @ 166.667 mls/hr IVPB Q8H [facility] Last Admin: 12/15/16 08:43 Dose: 166.667 mls/hr Voriconazole 300 mg/ Sodium (Chloride) 130 mls @ 65 mls/hr IVPB Q12H [facility] Last Admin: 12/15/16 08:43 Dose: 65 mls/hr Metoprolol Succinate (Toprol Xl Tab*) 12.5 mg PO DAILY [facility] Last Admin: 12/15/16 08:45 Dose: 12.5 mg Mometasone Furoate/Formoterol Fumar (Dulera 200/5 Mdi*) 2 puff INH BID [facility] PRN Reason: Protocol Last Admin: 12/15/16 11:09 Dose: 2 puff Montelukast Sodium (Singulair Tab*) 10 mg PO DAILY [facility] Last Admin: 12/15/16 08:47 Dose: 10 mg Nystatin (Nystatin Suspension*) 500,000 units PO QID [facility] Last Admin: 12/15/16 08:47 Dose: 500,000 units Omeprazole (Prilosec Cap*) 20 mg PO BID [facility] Last Admin: 12/15/16 08:46 Dose: 20 mg Pharmacy Consult (Vancomycin Per Pharmacy*) 1 note FOLLOW UP . PRN PRN Reason: PER PROTOCOL Pharmacy Profile Note (Vancomycin Trough Check) 1 note FOLLOW UP 729 ONE Stop: 12/17/16 07:31 Prednisone (Deltasone Tab*) 20 mg PO 2100 [facility] Tiotropium [place] (Spiriva Cap.Inh*) 1 cap INH DAILY [facility] Last Admin: 12/15/16 11:09 Dose: 1 cap Vital Signs 12/14/16 12/14/16 12/14/16 12:21 14:29 15:36 Temperature 97.7 F 98.1 F Pulse Rate 88 79 95 Respiratory 16 16 16 Rate Blood Pressure 130/73 122/44 (mmHg) O2 Sat by Pulse 95 94 96 Oximetry 12/14/16 12/14/16 12/14/16 15:41 19:38 20:00 Temperature 98.1 F 99.0 F Pulse Rate 95 107 Respiratory 16 20 18 Rate Blood Pressure 122/44 146/55 (mmHg) O2 Sat by Pulse 95 96 Oximetry 12/14/16 12/14/16 12/15/16 20:37 23:17 00:00 Temperature 98.0 F Pulse Rate 90 83 Respiratory 18 16 Rate Blood Pressure 139/60 (mmHg) O2 Sat by Pulse 95 97 96 Oximetry 12/15/16 12/15/16 12/15/16 03:48 08:00 08:14 Temperature 98.0 F 98.5 F Pulse Rate 85 88 Respiratory 20 16 16 Rate Blood Pressure 135/62 129/58 (mmHg) O2 Sat by Pulse 95 94 94 Oximetry 12/15/16 11:34 Temperature 97.6 F Pulse Rate 86 Respiratory 18 Rate Blood Pressure 110/63 (mmHg) O2 Sat by Pulse 98 Oximetry Oxygen Devices in Use Now: Nasal Cannula - 2L Appearance: 71 yo F in nAd, aAOx3 Eyes: No Scleral Icterus, PERRLA Ears/Nose/Mouth/Throat: NL Teeth, Lips, Gums, Mucous Membranes Moist Neck: NL Appearance and Movements; NL JVP, Trachea Midline Respiratory: Symmetrical Chest Expansion and Respiratory Effort Cardiovascular: NL Sounds; No Murmurs; No JVD, RRR Abdominal: NL Sounds; No Tenderness; No Distention Lymphatic: No Cervical Adenopathy Extremities: No Clubbing, Cyanosis, - - +2 pitting pedal edema and anasarca in b /l UE. UE's edema improving Neurological: Alert and Oriented x 3, NL Muscle Strength and Tone Result Diagrams: 12/16/16 05:15 12/16/16 05:15 Additional Lab and Data: Lab Results 12/09/16 12/09/16 12/09/16 Range/Units 21:50 21:50 21:50 WBC 26.2 H (3.5-10.8) 10^3/ul RBC 2.71 L (4.0-5.4) 10^6/ul Hgb 8.3 L (14.0-18.0) g/dl Hct 25 L (42-52) % MCV 92 (80-94) fL MCH 31 (27-31) pg MCHC 33 (31-36) g/dl RDW 14 (10.5-15) % Plt Count 221 (150-450) 10^3/ul MPV 8 (7.4-10.4) um3 Immature Gran % (Auto) 8 (0-9) % Neut % (Auto) 87.2 H (38-83) % Lymph % (Auto) 3.2 L (25-47) % [place] % (Auto) 9.3 H (1-9) % Eos % (Auto) 0 (0-6) % Baso % (Auto) 0.3 (0-2) % Absolute Neuts (auto) 22.8 H (1.5-7.7) 10^3/ul Absolute Lymphs (auto) 0.8 L (1.0-4.8) 10^3/ul Absolute Monos (auto) 2.4 H (0-0.8) 10^3/ul Absolute Eos (auto) 0 (0-0.6) 10^3/ul Absolute Basos (auto) 0.1 (0-0.2) 10^3/ul Absolute Nucleated RBC 0.11 10^3/ul Neutrophils % 82 (38-83) % Band Neutrophils % 1 (0-8) % Lymphocytes % 3 L (25-47) % Monocytes % 7 (0-13) % Metamyelocytes % 3 H (0-2) % Myelocytes % 4 H (0-1) % Nucleated RBC % 0.4 Nucleated RBCs/100 WBC 1 H (0-0) Toxic Granulation 2+ Normal RBC Morphology Not Reportable INR (Anticoag Therapy) 1.55 H (0.89-1.11) D-Dimer, Quantitative < 200 (Less Than 230) ng/mL Sodium 131 L (133-145) mmol/L Potassium 4.9 (3.5-5.0) mmol/L Chloride 96 L (101-111) mmol/L Carbon Dioxide 27 (22-32) mmol/L Anion Gap 8 (2-11) mmol/L BUN 81 H (6-24) mg/dL Creatinine 1.25 H (0.67-1.17) mg/dL Est GFR ( Amer) 73.4 (>60) Est GFR (Non-Af Amer) 57.1 (>60) BUN/Creatinine Ratio 64.8 H (8-20) Glucose 251 H (70-100) mg/dL Lactic Acid (0.5-2.0) mmol/L Calcium 8.5 L (8.6-10.3) mg/dL Total Bilirubin 0.40 (0.2-1.0) mg/dL AST 17 (13-39) U/L ALT 28 (7-52) U/L Alkaline Phosphatase 29 L (34-104) U/L Troponin I 0.06 H* (<0.04) ng/mL B-Natriuretic Peptide ( - 100) pg/mL Total Protein 5.3 L (6.4-8.9) g/dL Albumin 2.7 L (3.2-5.2) g/dL Globulin 2.6 (2-4) g/dL Albumin/Globulin Ratio 1.0 (1-3) Blood Type Antibody Screen Crossmatch 12/09/16 12/09/16 12/09/16 Range/Units 21:50 21:50 21:54 WBC (3.5-10.8) 10^3/ul RBC (4.0-5.4) 10^6/ul Hgb (14.0-18.0) g/dl Hct (42-52) % MCV (80-94) fL MCH (27-31) pg MCHC (31-36) g/dl RDW (10.5-15) % Plt Count (150-450) 10^3/ul MPV (7.4-10.4) um3 Immature Gran % (Auto) (0-9) % Neut % (Auto) (38-83) % Lymph % (Auto) (25-47) % Kinney % (Auto) (1-9) % Eos % (Auto) (0-6) % Baso % (Auto) (0-2) % Absolute Neuts (auto) (1.5-7.7) 10^3/ul Absolute Lymphs (auto) (1.0-4.8) 10^3/ul Absolute Monos (auto) (0-0.8) 10^3/ul Absolute Eos (auto) (0-0.6) 10^3/ul Absolute Basos (auto) (0-0.2) 10^3/ul Absolute Nucleated RBC 10^3/ul Neutrophils % (38-83) % Band Neutrophils % (0-8) % Lymphocytes % (25-47) % Monocytes % (0-13) % Metamyelocytes % (0-2) % Myelocytes % (0-1) % Nucleated RBC % Nucleated RBCs/100 WBC (0-0) Toxic Granulation Normal RBC Morphology INR (Anticoag Therapy) (0.89-1.11) D-Dimer, Quantitative (Less Than 230) ng/mL Sodium (133-145) mmol/L Potassium (3.5-5.0) mmol/L Chloride (101-111) mmol/L Carbon Dioxide (22-32) mmol/L Anion Gap (2-11) mmol/L BUN (6-24) mg/dL Creatinine (0.67-1.17) mg/dL Est GFR ( Amer) (>60) Est GFR (Non-Af Amer) (>60) BUN/Creatinine Ratio (8-20) Glucose (70-100) mg/dL Lactic Acid 3.6 H* (0.5-2.0) mmol/L Calcium (8.6-10.3) mg/dL Total Bilirubin (0.2-1.0) mg/dL AST (13-39) U/L ALT (7-52) U/L Alkaline Phosphatase (34-104) U/L Troponin I (<0.04) ng/mL B-Natriuretic Peptide 104 H ( - 100) pg/mL Total Protein (6.4-8.9) g/dL Albumin (3.2-5.2) g/dL Globulin (2-4) g/dL Albumin/Globulin Ratio (1-3) Blood Type A Positive Antibody Screen Negative Crossmatch See Detail 12/10/16 Range/Units 09:48 WBC (3.5-10.8) 10^3/ul RBC (4.0-5.4) 10^6/ul Hgb (14.0-18.0) g/dl Hct (42-52) % MCV (80-94) fL MCH (27-31) pg MCHC (31-36) g/dl RDW (10.5-15) % Plt Count (150-450) 10^3/ul MPV (7.4-10.4) um3 Immature Gran % (Auto) (0-9) % Neut % (Auto) (38-83) % Lymph % (Auto) (25-47) % [place] % (Auto) (1-9) % Eos % (Auto) (0-6) % Baso % (Auto) (0-2) % Absolute Neuts (auto) (1.5-7.7) 10^3/ul Absolute Lymphs (auto) (1.0-4.8) 10^3/ul Absolute Monos (auto) (0-0.8) 10^3/ul Absolute Eos (auto) (0-0.6) 10^3/ul Absolute Basos (auto) (0-0.2) 10^3/ul Absolute Nucleated RBC 10^3/ul Neutrophils % (38-83) % Band Neutrophils % (0-8) % Lymphocytes % (25-47) % Monocytes % (0-13) % Metamyelocytes % (0-2) % Myelocytes % (0-1) % Nucleated RBC % Nucleated RBCs/100 WBC (0-0) Toxic Granulation Normal RBC Morphology INR (Anticoag Therapy) (0.89-1.11) D-Dimer, Quantitative (Less Than 230) ng/mL Sodium (133-145) mmol/L Potassium (3.5-5.0) mmol/L Chloride (101-111) mmol/L Carbon Dioxide (22-32) mmol/L Anion Gap (2-11) mmol/L BUN 88 H (6-24) mg/dL Creatinine 1.09 (0.67-1.17) mg/dL Est GFR ( Amer) 86.0 (>60) Est GFR (Non-Af Amer) 66.9 (>60) BUN/Creatinine Ratio (8-20) Glucose (70-100) mg/dL Lactic Acid (0.5-2.0) mmol/L Calcium (8.6-10.3) mg/dL Total Bilirubin (0.2-1.0) mg/dL AST (13-39) U/L ALT (7-52) U/L Alkaline Phosphatase (34-104) U/L Troponin I (<0.04) ng/mL B-Natriuretic Peptide ( - 100) pg/mL Total Protein (6.4-8.9) g/dL Albumin (3.2-5.2) g/dL Globulin (2-4) g/dL Albumin/Globulin Ratio (1-3) Blood Type Antibody Screen Crossmatch Microbiology and Other Data: Microbiology 12/10/16 03:50 Legionella Urinary Antigen - Final Urine Negative Legionella Streptococcus pneumoniae Ag Screen - Final Negative S. pneumo Antigen Assess/Plan/Problems-Billing Assessment: SOB in a 71 yo M with hx of COPD, recent PNA and influenza, AFib on xarelto, prostate cancer, - Patient Problems (1) Pneumonia Comment: Appreciate ID and Pulm consults. 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 Continue Vancomycin. Voriconazole started by ID on 12/12( pt had c/ o transient blurry vision which resolved within minutes of initiation of infusion-edeucated that it is a common- up to 19% side effect). Awaiting percunatenous biopsy to be done today. CT shows cavitary process, possibly necrotic. Mold results sent to [place] from came back as Aspergillus fumigatus, also sputum cx from this admission has similar appearance. Wean oxygen as able. (2) SOB (shortness of breath) Comment: Multifactorial although may be mostly driven by anemia likely 2/2 GIB and anasarca (3) GI bleed Comment: Appreciate GI assistance. EGD on 12/11/16 showed duodenal uulcer. Continue PPI BID. CLOtest negative but may have been impacted by ongoing antibiotics. Will need repeat EGD as outpatient. Holding Eliquis. Received 2 units of PRBC total. Continue to monitor H/H, transfuse as needed. (4) COPD (chronic obstructive pulmonary disease) Comment: Continue dulera, spiriva, montelukast, albuterol, prednisone 20 mg bid , weaned to 20 mg daily beginning on 12/14, today wean down to 10 mg daily. (5) Atrial fibrillation Comment: Paroxysmal. Continue metoprolol. Holding Eliquis. Troponins stable. (6) DVT prophylaxis Comment: SCDs-anticoagulation contraindicated in light of GI bleed. (7) Anasarca Comment: Repeat Lasix 60 mg IV again today now and 40 mg in PM for LE edema and anasarca. will check UA,, but suspect low albumin and anasarca is due to poor nutritional status and IVF tx. will check prealbumin Status and Disposition: Awaiting biopsy.
[2016-12-15] MEDS: Furosemide IV* 10 MG/ML 10 ML VIAL (100 MG) IV ONE ×2 (12:27→14:53)
[2016-12-15] MEDS: Potassium Chlor TAB* 20 MEQ TAB.ER PO SCH (14:53)
--- NOTE | 2016-12-15 15:15 | RAD ---
Indication: Cavitary lesion in the lingula. Using usual aseptic technique and lidocaine as a local anesthetic a 22-gauge needle was placed within the infiltrate in the lingula under CT localization. 3 passes were made with 22-gauge biopsy needle. Specimen was sent for cultures and sensitivities. Postbiopsy scan shows no pneumothorax. IMPRESSION: Successful fine-needle aspiration of infiltrate and cavitary mass in the lingula.
[2016-12-15 17:11] LABS: Urine Bilirubin Negative (Negative); Urine Glucose Negative (Negative); Urine Nitrite Negative (Negative)
[2016-12-15] MEDS ORDERED: Furosemide IV* 10 MG/ML VIAL (40 MG) IV ONE (19:00)
[2016-12-15] MEDS ORDERED: predniSONE TAB* 20 MG PO SCH ×2 (21:00)
[2016-12-16 05:53] LABS: Hematocrit 25 % (42-52); Hemoglobin 8.3 g/dl (14.0-18.0); Mean Corpuscular HGB Conc 33 g/dl (31-36); Mean Corpuscular Hemoglobin 30 pg (27-31); Mean Corpuscular Volume 91 fL (80-94); Mean Platelet Volume 8 um3 (7.4-10.4); Red Blood Count 2.76 10^6/ul (4.0-5.4); Red Cell Distribution Width 15 % (10.5-15); White Blood Count 15.3 10^3/ul (3.5-10.8)
[2016-12-16 06:09] LABS: BUN/Creatinine Ratio 26.9 (8-20); Calcium 7.5 mg/dL (8.6-10.3); EGFR African American 202.1 (>60); EGFR Non-African American 157.1 (>60); Potassium 3.9 mmol/L (3.5-5.0)
[2016-12-16] MEDS: Mometasone/Formoter 200/5 MDI INH SCH ×2 (07:41→22:20)
[2016-12-16] MEDS: Tiotropium CAP.INH* CAP.INH/18 MCG INH SCH (07:41)
[2016-12-16] MEDS: Vancomycin(*) 1,000 MG in NS 0.9% 250 ML* 250 ML IVPB SCH ×3 (07:45→23:56)
[2016-12-16] MEDS: Montelukast Sodium TAB* 10 MG PO SCH (08:38)
[2016-12-16] MEDS: Omeprazole CAP* 20 MG PO SCH ×2 (08:38→20:29)
[2016-12-16] MEDS: Potassium Chlor TAB* 20 MEQ TAB.ER PO SCH (08:38)
[2016-12-16] MEDS: guaiFENesin ER TAB 600 MG PO SCH ×2 (08:39→20:29)
[2016-12-16] MEDS: Nystatin SUSPENSION* 100000 UNITS/ML 5 ML UDC PO SCH ×4 (08:40→20:30)
[2016-12-16] MEDS: Metoprolol Succinate XL TAB* 25 MG PO SCH (08:43)
[2016-12-16] MEDS: amLODIPine TAB* 5 MG PO SCH (08:43)
[2016-12-16] MEDS: VORICONAZOLE IVPB SCH ×2 (09:47→20:16)
[2016-12-16] MEDS: NS 0.9% IVPB SCH ×2 (09:47→20:16)
[2016-12-16] MEDS ORDERED: Furosemide IV* 10 MG/ML 10 ML VIAL (100 MG) IV ONE (10:49)
--- NOTE | 2016-12-16 14:43 | PN ---
Progress Note - Progress Note SOAP: Subjective: DOS: 12/17/15 CC: cough HPI: 71 year old man with multiple recent admission for influenza, pneumonia, COPD exacerbation now with weakness and sob with any movement, found to have GI bleed. EGD showed duodenal ulcer. Cavitary left lung lesion seen on chest CT, had biopsy 12/15, tolerated it well. Cough is resolved, no chest pain. Objective: [] Vital Signs Temp 36.7 C 12/16/16 11:11 Pulse 86 12/16/16 11:11 Resp 14 12/16/16 07:43 BP 125/59 12/16/16 11:11 Pulse Ox 96 12/16/16 11:11 Intake & Output 12/15/16 12/16/16 12/16/16 18:59 06:59 18:59 Intake Total 513 078 9207 Output Total 1025 1700 700 Balance -385 -1060 320 Weight 169 lb 9.6 oz Intake: IV Fluids 390 260 ABX - VANCOMYCIN 250 260 Vfend 140 IVPB 250 380 ABX - VANCOMYCIN 250 250 Vfend 130 Oral 0 0 1020 Output: Urine 1025 1700 700 Other: # Bowel Movements 0 Gen:Awake, no distress Neuro:Ox3 HEENT:PERRL, MMM Neck:Supple Heart:RRR no murmur Lungs:CTA BL Abd:+BS NTND soft Skin: no rash MSK: no spine tenderness Assessment: 1. cavitary lung mass due to infection diff dx Fungal ie (Aspergillus which is in his sputum x3), Crytpo, Histo; bacterial ie NTM, Staph are less likely 2. cough due #1, improved since voriconazole added 3. COPD on increased corticosteroids last few weeks 4. atrial fibrillation 5. 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 continue vancomycin goal tr 15-20 and voriconazole until 12/17, given improvement since it was added will plan on voriconazole 200 mg po BID while awaiting biopsy results. Steroid taper per hospitalist.
[2016-12-16] MEDS: Furosemide IV* 10 MG/ML VIAL (40 MG) IV SCH (16:32)
--- NOTE | 2016-12-16 17:37 | PN ---
Progress Note - Progress Note Note: Pulm consult f/u note 12/16/16. Pt seen and examined at bedside. Pt reports feeling better today. SOB is improved, still has LE swelling Active Medications Generic Name Dose Route Start Last Admin Trade Name Freq PRN Reason Stop Dose Admin Albuterol 2.5 mg 12/10/16 00:25 Ventolin 2.5 Mg/3 Ml Neb.Mariella* INH Q4H PRN WHEEZING Albuterol 2 puff 12/10/16 00:25 12/13/16 20:00 Ventolin Hfa Inhaler* INH 2 puff Q4H PRN Administration SHORTNESS OF BREATH Amlodipine Besylate 10 mg 12/10/16 09:00 12/16/16 08:43 Norvasc Tab* PO 10 mg DAILY [facility] Administration Furosemide 40 mg 12/16/16 17:00 12/16/16 16:32 Lasix Iv* IV 40 mg 0800,1700 [facility] Administration Guaifenesin 600 mg 12/10/16 09:00 12/16/16 08:39 Mucinex* PO 600 mg BID [facility] Administration Vancomycin HCl 1,000 mg/ 250 mls @ 166.667 mls/hr 12/11/16 16:00 12/16/16 16: 27 Sodium Chloride IVPB 166.667 mls/hr Q8H [facility] Administration Voriconazole 300 mg/ Sodium 130 mls @ 65 mls/hr 12/13/16 20:00 12/16/16 09:47 Chloride IVPB 65 mls/hr Q12H [facility] Administration Metoprolol Succinate 12.5 mg 12/10/16 12:00 12/16/16 08:43 Toprol Xl Tab* PO 12.5 mg DAILY [facility] Administration Mometasone Furoate/Formoterol Fumar 2 puff 12/10/16 09:00 12/16/16 07:41 Dulera 200/5 Mdi* INH 2 puff BID [facility] Administration Protocol Montelukast Sodium 10 mg 12/10/16 12:00 12/16/16 08:38 Singulair Tab* PO 10 mg DAILY [facility] Administration Nystatin 500,000 units 12/11/16 15:34 12/16/16 16:32 Nystatin Suspension* PO 500,000 units QID [facility] Administration Omeprazole 20 mg 12/13/16 10:00 12/16/16 08:38 Prilosec Cap* PO 20 mg BID [facility] Administration Pharmacy Consult 1 note 12/10/16 00:53 Vancomycin Per Pharmacy* FOLLOW UP . PRN PER PROTOCOL Pharmacy Profile Note 1 note 12/17/16 07:30 Vancomycin Trough Check FOLLOW UP 12/17/16 07:31 0730 ONE Potassium Chloride 20 meq 12/15/16 12:00 12/16/16 08:38 Klor Con Er Tab* PO 20 meq DAILY [facility] Administration Tiotropium [place] 1 cap 12/10/16 09:00 12/16/16 07:41 Spiriva Cap.Inh* INH 1 cap DAILY [facility] Administration Vital Signs Temp Pulse Resp BP Pulse Ox 98.1 F 86 14 125/59 96 12/16/16 11:11 12/16/16 11:11 12/16/16 07:43 12/16/16 11:11 12/16/16 17:16 Gen: Pt in NAD HEENT: No Scleral Icterus, Mucous Membranes Moist Neck: NL Appearance and Movements; NL JVP Respiratory: Symmetrical Chest Expansion and Respiratory Effort, Clear to Auscultation Cardiovascular: NL Sounds; No Murmurs; No JVD, RRR Abdominal: NL Sounds; No Tenderness; No Distention Lymphatic: No Cervical Adenopathy Extremities: B/L LE pitting edema to below knees Skin: No Rash or Ulcers Neurological: Alert and Oriented x 3 Laboratory Results - last 24 hr 12/16/16 12/16/16 05:15 05:15 WBC 15.3 H RBC 2.76 L Hgb 8.3 L Hct 25 L MCV 91 MCH 30 MCHC 33 RDW 15 Plt Count 177 MPV 8 Sodium 135 Potassium 3.9 Chloride 95 L Carbon Dioxide 34 H Anion Gap 6 BUN 14 Creatinine 0.52 L Est GFR ( Amer) 202.1 Est GFR (Non-Af Amer) 157.1 BUN/Creatinine Ratio 26.9 H Glucose 108 H Calcium 7.5 L Prealbumin 9 L I/R: Pt is 71 yo M with hx of COPD, recent PNA and influenza, AFib on xarelto, prostate cancer, a/w SOB secondary acute blood loss anemia from duodenal ulcer On PPI BID. EGD showed duodenal bulb ulcer, CLOtest negative but may have been impacted by ongoing antibiosis. 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 Is on Vanc, Antifungal therapy as per ID. Wean oxygen as tolerated Continue dulera, spiriva, montelukast, albuterol, taper prednisone and may be d /c in 2-3 days On diuretics for LE swelling
[2016-12-17 06:09] LABS: EGFR African American 206.6 (>60); EGFR Non-African American 160.7 (>60); Vancomycin Trough 22.7 mcg/mL
[2016-12-17] MEDS ORDERED: Vancomycin Trough Check NOTE FOLLOW UP ONE (07:30)
[2016-12-17] MEDS: Mometasone/Formoter 200/5 MDI INH SCH ×2 (08:21→20:49)
[2016-12-17] MEDS: Tiotropium CAP.INH* CAP.INH/18 MCG INH SCH (08:21)
[2016-12-17] MEDS: VORICONAZOLE IVPB SCH (08:32)
[2016-12-17] MEDS: NS 0.9% IVPB SCH (08:32)
[2016-12-17] MEDS: Furosemide IV* 10 MG/ML VIAL (40 MG) IV SCH ×2 (08:40→17:44)
[2016-12-17] MEDS: Potassium Chlor TAB* 20 MEQ TAB.ER PO SCH (08:40)
[2016-12-17] MEDS: Montelukast Sodium TAB* 10 MG PO SCH (08:40)
[2016-12-17] MEDS: guaiFENesin ER TAB 600 MG PO SCH ×2 (08:40→20:07)
[2016-12-17] MEDS: Nystatin SUSPENSION* 100000 UNITS/ML 5 ML UDC PO SCH ×4 (08:41→20:07)
[2016-12-17] MEDS: amLODIPine TAB* 5 MG PO SCH (08:41)
[2016-12-17] MEDS: Metoprolol Succinate XL TAB* 25 MG PO SCH (08:41)
[2016-12-17] MEDS: Vancomycin(*) 1,000 MG in NS 0.9% 250 ML* 250 ML IVPB SCH (08:54)
[2016-12-17] MEDS: Omeprazole CAP* 20 MG PO SCH ×2 (08:55→20:07)
[2016-12-17] MEDS ORDERED: Vancomycin(*) 1,000 MG in NS 0.9% 250 ML* 250 ML IVPB SCH (11:00)
--- NOTE | 2016-12-17 11:32 | PN ---
Progress Note - Progress Note SOAP: Subjective: DOS: 12/18/15 CC: cough HPI: 71 year old man with multiple recent admission for influenza, pneumonia, COPD exacerbation now with weakness and sob with any movement, found to have GI bleed. EGD showed duodenal ulcer. Cavitary left lung lesion seen on chest CT, had biopsy 12/15, tolerated it well. Feels well. Objective: [] Vital Signs Temp 36.3 C 12/17/16 07:29 Pulse 86 12/17/16 08:22 Resp 14 12/17/16 08:22 BP 118/45 12/17/16 07:29 Pulse Ox 98 12/17/16 08:22 Intake & Output 12/16/16 12/17/16 12/17/16 18:59 06:59 18:59 Intake Total 1575 120 230 Output Total 700 1675 250 Balance 875 -1555 -20 Weight 169 lb 9.6 oz Intake: IVPB 555 ABX - VANCOMYCIN 420 Voriconazole 135 Oral 1020 120 230 Output: Urine 700 1675 250 Other: Estimated Void Large # Bowel Movements 0 # Voids 3 Gen:Awake, no distress Neuro:Ox3 HEENT:PERRL, MMM Neck:Supple Heart:RRR no murmur Lungs:CTA BL Abd:+BS NTND soft Skin: no rash MSK: no spine tenderness Laboratory Results - last 24 hr 12/17/16 05:20 BUN 12 Creatinine 0.51 L Est GFR ( Amer) 206.6 Est GFR (Non-Af Amer) 160.7 Vancomycin Trough 22.7 Assessment: 1. cavitary lung mass due to infection diff dx Fungal ie (Aspergillus which is in his sputum x3), Crytpo, Histo; bacterial ie NTM, Staph are less likely 2. cough due #1, improved since voriconazole added 3. COPD on increased corticosteroids last few weeks 4. atrial fibrillation 5. 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 DC vancomycin, change voriconazole to 200 mg po Q12hrs. Steroid taper per hospitalist. Discussed with Dr Raya
--- NOTE | 2016-12-17 12:08 | PN ---
Subjective Date of Service: 12/17/16 Interval History: . feels ok in room - he is interested in going home, but feels he needs one more day Family History: Unchanged from Admission Social History: Unchanged from Admission Past Medical History: Unchanged from Admission Objective Active Medications: Albuterol (Ventolin 2.5 Mg/3 Ml Neb.Mariella*) 2.5 mg INH Q4H PRN PRN Reason: WHEEZING Albuterol (Ventolin Hfa Inhaler*) 2 puff INH Q4H PRN PRN Reason: SHORTNESS OF BREATH Last Admin: 12/13/16 20:00 Dose: 2 puff Amlodipine Besylate (Norvasc Tab*) 10 mg PO DAILY [facility] Last Admin: 12/17/16 08:41 Dose: 10 mg Furosemide (Lasix Iv*) 40 mg IV 0800,1700 [facility] Last Admin: 12/17/16 08:40 Dose: 40 mg Guaifenesin (Mucinex*) 600 mg PO BID [facility] Last Admin: 12/17/16 08:40 Dose: 600 mg Heparin Sodium (Porcine) (Heparin Flush Picc/Ml/Cvc(*)) 1 - 3 ml FLUSH 0600, 1800 [facility] PRN Reason: Protocol Last Admin: 12/17/16 05:20 Dose: 2 ml Vancomycin HCl 1,000 mg/ (Sodium Chloride) 250 mls @ 166.667 mls/hr IVPB 1100, 2300 [facility] Metoprolol Succinate (Toprol Xl Tab*) 12.5 mg PO DAILY [facility] Last Admin: 12/17/16 08:41 Dose: 12.5 mg Mometasone Furoate/Formoterol Fumar (Dulera 200/5 Mdi*) 2 puff INH BID [facility] PRN Reason: Protocol Last Admin: 12/17/16 08:21 Dose: 2 puff Montelukast Sodium (Singulair Tab*) 10 mg PO DAILY [facility] Last Admin: 12/17/16 08:40 Dose: 10 mg Nystatin (Nystatin Suspension*) 500,000 units PO QID [facility] Last Admin: 12/17/16 08:41 Dose: 500,000 units Omeprazole (Prilosec Cap*) 20 mg PO BID [facility] Last Admin: 12/17/16 08:55 Dose: 20 mg Pharmacy Consult (Vancomycin Per Pharmacy*) 1 note FOLLOW UP . PRN PRN Reason: PER PROTOCOL Potassium Chloride (Klor Con Er Tab*) 20 meq PO DAILY [facility] Last Admin: 12/17/16 08:40 Dose: 20 meq Tiotropium [place] (Spiriva Cap.Inh*) 1 cap INH DAILY [facility] Last Admin: 12/17/16 08:21 Dose: 1 cap Voriconazole (Vfend (Nf)) 200 mg PO Q12HR [facility] PRN Reason: Protocol Vital Signs 12/16/16 12/16/16 12/16/16 15:42 16:00 17:16 Temperature 97.6 F Pulse Rate 95 Respiratory Rate Blood Pressure 113/54 (mmHg) O2 Sat by Pulse 99 96 96 Oximetry 12/16/16 12/16/16 12/17/16 20:00 23:45 07:29 Temperature 98.4 F 97.3 F Pulse Rate 83 88 Respiratory 15 17 18 Rate Blood Pressure 122/48 118/45 (mmHg) O2 Sat by Pulse 95 99 Oximetry 12/17/16 08:22 Temperature Pulse Rate 86 Respiratory 14 Rate Blood Pressure (mmHg) O2 Sat by Pulse 98 Oximetry Oxygen Devices in Use Now: Nasal Cannula - 2L Result Diagrams: 12/16/16 05:15 12/17/16 05:20 Additional Lab and Data: Lab Results 12/09/16 12/09/16 12/09/16 Range/Units 21:50 21:50 21:50 WBC 26.2 H (3.5-10.8) 10^3/ul RBC 2.71 L (4.0-5.4) 10^6/ul Hgb 8.3 L (14.0-18.0) g/dl Hct 25 L (42-52) % MCV 92 (80-94) fL MCH 31 (27-31) pg MCHC 33 (31-36) g/dl RDW 14 (10.5-15) % Plt Count 221 (150-450) 10^3/ul MPV 8 (7.4-10.4) um3 Immature Gran % (Auto) 8 (0-9) % Neut % (Auto) 87.2 H (38-83) % Lymph % (Auto) 3.2 L (25-47) % [place] % (Auto) 9.3 H (1-9) % Eos % (Auto) 0 (0-6) % Baso % (Auto) 0.3 (0-2) % Absolute Neuts (auto) 22.8 H (1.5-7.7) 10^3/ul Absolute Lymphs (auto) 0.8 L (1.0-4.8) 10^3/ul Absolute Monos (auto) 2.4 H (0-0.8) 10^3/ul Absolute Eos (auto) 0 (0-0.6) 10^3/ul Absolute Basos (auto) 0.1 (0-0.2) 10^3/ul Absolute Nucleated RBC 0.11 10^3/ul Neutrophils % 82 (38-83) % Band Neutrophils % 1 (0-8) % Lymphocytes % 3 L (25-47) % Monocytes % 7 (0-13) % Metamyelocytes % 3 H (0-2) % Myelocytes % 4 H (0-1) % Nucleated RBC % 0.4 Nucleated RBCs/100 WBC 1 H (0-0) Toxic Granulation 2+ Normal RBC Morphology Not Reportable INR (Anticoag Therapy) 1.55 H (0.89-1.11) D-Dimer, Quantitative < 200 (Less Than 230) ng/mL Sodium 131 L (133-145) mmol/L Potassium 4.9 (3.5-5.0) mmol/L Chloride 96 L (101-111) mmol/L Carbon Dioxide 27 (22-32) mmol/L Anion Gap 8 (2-11) mmol/L BUN 81 H (6-24) mg/dL Creatinine 1.25 H (0.67-1.17) mg/dL Est GFR ( Amer) 73.4 (>60) Est GFR (Non-Af Amer) 57.1 (>60) BUN/Creatinine Ratio 64.8 H (8-20) Glucose 251 H (70-100) mg/dL Lactic Acid (0.5-2.0) mmol/L Calcium 8.5 L (8.6-10.3) mg/dL Total Bilirubin 0.40 (0.2-1.0) mg/dL AST 17 (13-39) U/L ALT 28 (7-52) U/L Alkaline Phosphatase 29 L (34-104) U/L Troponin I 0.06 H* (<0.04) ng/mL B-Natriuretic Peptide ( - 100) pg/mL Total Protein 5.3 L (6.4-8.9) g/dL Albumin 2.7 L (3.2-5.2) g/dL Globulin 2.6 (2-4) g/dL Albumin/Globulin Ratio 1.0 (1-3) Blood Type Antibody Screen Crossmatch 12/09/16 12/09/16 12/09/16 Range/Units 21:50 21:50 21:54 WBC (3.5-10.8) 10^3/ul RBC (4.0-5.4) 10^6/ul Hgb (14.0-18.0) g/dl Hct (42-52) % MCV (80-94) fL MCH (27-31) pg MCHC (31-36) g/dl RDW (10.5-15) % Plt Count (150-450) 10^3/ul MPV (7.4-10.4) um3 Immature Gran % (Auto) (0-9) % Neut % (Auto) (38-83) % Lymph % (Auto) (25-47) % [place] % (Auto) (1-9) % Eos % (Auto) (0-6) % Baso % (Auto) (0-2) % Absolute Neuts (auto) (1.5-7.7) 10^3/ul Absolute Lymphs (auto) (1.0-4.8) 10^3/ul Absolute Monos (auto) (0-0.8) 10^3/ul Absolute Eos (auto) (0-0.6) 10^3/ul Absolute Basos (auto) (0-0.2) 10^3/ul Absolute Nucleated RBC 10^3/ul Neutrophils % (38-83) % Band Neutrophils % (0-8) % Lymphocytes % (25-47) % Monocytes % (0-13) % Metamyelocytes % (0-2) % Myelocytes % (0-1) % Nucleated RBC % Nucleated RBCs/100 WBC (0-0) Toxic Granulation Normal RBC Morphology INR (Anticoag Therapy) (0.89-1.11) D-Dimer, Quantitative (Less Than 230) ng/mL Sodium (133-145) mmol/L Potassium (3.5-5.0) mmol/L Chloride (101-111) mmol/L Carbon Dioxide (22-32) mmol/L Anion Gap (2-11) mmol/L BUN (6-24) mg/dL Creatinine (0.67-1.17) mg/dL Est GFR ( Amer) (>60) Est GFR (Non-Af Amer) (>60) BUN/Creatinine Ratio (8-20) Glucose (70-100) mg/dL Lactic Acid 3.6 H* (0.5-2.0) mmol/L Calcium (8.6-10.3) mg/dL Total Bilirubin (0.2-1.0) mg/dL AST (13-39) U/L ALT (7-52) U/L Alkaline Phosphatase (34-104) U/L Troponin I (<0.04) ng/mL B-Natriuretic Peptide 104 H ( - 100) pg/mL Total Protein (6.4-8.9) g/dL Albumin (3.2-5.2) g/dL Globulin (2-4) g/dL Albumin/Globulin Ratio (1-3) Blood Type A Positive Antibody Screen Negative Crossmatch See Detail 12/10/16 Range/Units 09:48 WBC (3.5-10.8) 10^3/ul RBC (4.0-5.4) 10^6/ul Hgb (14.0-18.0) g/dl Hct (42-52) % MCV (80-94) fL MCH (27-31) pg MCHC (31-36) g/dl RDW (10.5-15) % Plt Count (150-450) 10^3/ul MPV (7.4-10.4) um3 Immature Gran % (Auto) (0-9) % Neut % (Auto) (38-83) % Lymph % (Auto) (25-47) % [place] % (Auto) (1-9) % Eos % (Auto) (0-6) % Baso % (Auto) (0-2) % Absolute Neuts (auto) (1.5-7.7) 10^3/ul Absolute Lymphs (auto) (1.0-4.8) 10^3/ul Absolute Monos (auto) (0-0.8) 10^3/ul Absolute Eos (auto) (0-0.6) 10^3/ul Absolute Basos (auto) (0-0.2) 10^3/ul Absolute Nucleated RBC 10^3/ul Neutrophils % (38-83) % Band Neutrophils % (0-8) % Lymphocytes % (25-47) % Monocytes % (0-13) % Metamyelocytes % (0-2) % Myelocytes % (0-1) % Nucleated RBC % Nucleated RBCs/100 WBC (0-0) Toxic Granulation Normal RBC Morphology INR (Anticoag Therapy) (0.89-1.11) D-Dimer, Quantitative (Less Than 230) ng/mL Sodium (133-145) mmol/L Potassium (3.5-5.0) mmol/L Chloride (101-111) mmol/L Carbon Dioxide (22-32) mmol/L Anion Gap (2-11) mmol/L BUN 88 H (6-24) mg/dL Creatinine 1.09 (0.67-1.17) mg/dL Est GFR ( Amer) 86.0 (>60) Est GFR (Non-Af Amer) 66.9 (>60) BUN/Creatinine Ratio (8-20) Glucose (70-100) mg/dL Lactic Acid (0.5-2.0) mmol/L Calcium (8.6-10.3) mg/dL Total Bilirubin (0.2-1.0) mg/dL AST (13-39) U/L ALT (7-52) U/L Alkaline Phosphatase (34-104) U/L Troponin I (<0.04) ng/mL B-Natriuretic Peptide ( - 100) pg/mL Total Protein (6.4-8.9) g/dL Albumin (3.2-5.2) g/dL Globulin (2-4) g/dL Albumin/Globulin Ratio (1-3) Blood Type Antibody Screen Crossmatch Microbiology and Other Data: Microbiology 12/10/16 03:50 Legionella Urinary Antigen - Final Urine Negative Legionella Streptococcus pneumoniae Ag Screen - Final Negative S. pneumo Antigen Assess/Plan/Problems-Billing Assessment: SOB in a 71 yo M with hx of COPD, recent PNA and influenza, AFib on xarelto, prostate cancer, 71 year old man with multiple recent admission for influenza, pneumonia, COPD exacerbation now with weakness and sob with any movement, found to have GI bleed. EGD showed duodenal ulcer. Cavitary left lung lesion seen on chest CT, had biopsy 12/15, tolerated it well. Feels well. - Patient Problems (1) Pneumonia Current Visit: No Status: Acute Priority: High Code(s): J18.9 - PNEUMONIA , UNSPECIFIED ORGANISM Comment: Appreciate ID and Pulm consults. 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 Continue Vancomycin. Voriconazole started by ID on 12/12 (pt had c/o transient blurry vision which resolved within minutes of initiation of infusion-edeucated that it is a common - up to 19% side effect). CT guided left lung biopsy done on 12/15/16-cx pending CT shows cavitary process, possibly necrotic. 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 Wean oxygen as able. (2) SOB (shortness of breath) Current Visit: Yes Status: Acute Priority: High Code(s): R06.02 - SHORTNESS OF BREATH Comment: Multifactorial although may be mostly driven by anemia likely 2/2 GIB and anasarca (3) GI bleed Current Visit: Yes Status: Acute Priority: High Code(s): K92.2 - GASTROINTESTINAL HEMORRHAGE, UNSPECIFIED Comment: Appreciate GI assistance. EGD on 12/11/16 showed duodenal uulcer. Continue PPI BID. CLOtest negative but may have been impacted by ongoing antibiotics. Will need repeat EGD as outpatient. Holding Eliquis. Received 2 units of PRBC total. Continue to monitor H/H, transfuse as needed. (4) COPD exacerbation Current Visit: No Status: Acute Priority: High Code(s): J44.1 - CHRONIC OBSTRUCTIVE PULMONARY DISEASE W (ACUTE) EXACERBATION Comment: prednisone weaned off (5) Atrial fibrillation Current Visit: No Status: Acute Code(s): I48.91 - UNSPECIFIED ATRIAL FIBRILLATION SNOMED Code(s): 94298868 Comment: Paroxysmal. Continue metoprolol. Holding Eliquis. Troponins stable. (6) DVT prophylaxis Current Visit: No Status: Acute Priority: Medium Code(s): LMB4059 - Comment: - SCDs - Anticoagulation contraindicated in light of GI bleed. (7) Anasarca Current Visit: No Status: Acute Priority: High Code(s): R60.1 - GENERALIZED EDEMA Comment: Due to IVF tx and malnutrition. No evidence of proteinuria Will cont IV Lasix BID. Suspect pt requires more diuretic tx. Status and Disposition: Awaiting biopsy results.
--- NOTE | 2016-12-17 17:52 | PN ---
Progress Note - Progress Note Note: Pulm consult f/u note 12/17/16. Pt seen and examined at bedside. Pt reports feeling better today. SOB is improved Active Medications Generic Name Dose Route Start Last Admin Trade Name Freq PRN Reason Stop Dose Admin Albuterol 2.5 mg 12/10/16 00:25 Ventolin 2.5 Mg/3 Ml Neb.Mariella* INH Q4H PRN WHEEZING Albuterol 2 puff 12/10/16 00:25 12/13/16 20:00 Ventolin Hfa Inhaler* INH 2 puff Q4H PRN Administration SHORTNESS OF BREATH Amlodipine Besylate 10 mg 12/10/16 09:00 12/17/16 08:41 Norvasc Tab* PO 10 mg DAILY [facility] Administration Furosemide 40 mg 12/16/16 17:00 12/17/16 17:44 Lasix Iv* IV 40 mg 0800,1700 [facility] Administration Guaifenesin 600 mg 12/10/16 09:00 12/17/16 08:40 Mucinex* PO 600 mg BID [facility] Administration Heparin Sodium (Porcine) 1 - 3 ml 12/16/16 20:00 12/17/16 17:45 Heparin Flush Picc/Ml/Cvc(*) FLUSH 2 ml 0600,1800 [facility] Administration Protocol Metoprolol Succinate 12.5 mg 12/10/16 12:00 12/17/16 08:41 Toprol Xl Tab* PO 12.5 mg DAILY [facility] Administration Mometasone Furoate/Formoterol Fumar 2 puff 12/10/16 09:00 12/17/16 08:21 Dulera 200/5 Mdi* INH 2 puff BID [facility] Administration Protocol Montelukast Sodium 10 mg 12/10/16 12:00 12/17/16 08:40 Singulair Tab* PO 10 mg DAILY [facility] Administration Nystatin 500,000 units 12/11/16 15:34 12/17/16 17:45 Nystatin Suspension* PO 500,000 units QID [facility] Administration Omeprazole 20 mg 12/13/16 10:00 12/17/16 08:55 Prilosec Cap* PO 20 mg BID [facility] Administration Potassium Chloride 20 meq 12/15/16 12:00 12/17/16 08:40 Klor Con Er Tab* PO 20 meq DAILY [facility] Administration Tiotropium [place] 1 cap 12/10/16 09:00 12/17/16 08:21 Spiriva Cap.Inh* INH 1 cap DAILY [facility] Administration Voriconazole 200 mg 12/17/16 21:00 Vfend (Nf) PO Q12HR [facility] Protocol Vital Signs Temp Pulse Resp BP Pulse Ox 97.9 F 88 14 109/53 95 12/17/16 15:49 12/17/16 15:49 12/17/16 08:22 12/17/16 15:49 12/17/16 16:00 Gen: Pt in NAD HEENT: No Scleral Icterus, Mucous Membranes Moist Neck: NL Appearance and Movements; NL JVP Respiratory: Symmetrical Chest Expansion and Respiratory Effort, Clear to Auscultation Cardiovascular: NL Sounds; No Murmurs; No JVD, RRR Abdominal: NL Sounds; No Tenderness; No Distention Lymphatic: No Cervical Adenopathy Extremities: B/L LE pitting edema to below knees Skin: No Rash or Ulcers Neurological: Alert and Oriented x 3 Laboratory Results - last 24 hr 12/17/16 05:20 BUN 12 Creatinine 0.51 L Est GFR ( Amer) 206.6 Est GFR (Non-Af Amer) 160.7 Vancomycin Trough 22.7 I/R: Pt is 71 yo M with hx of COPD, recent PNA and influenza, AFib on xarelto, prostate cancer, a/w SOB secondary acute blood loss anemia from duodenal ulcer On PPI BID. EGD showed duodenal bulb ulcer, CLOtest negative but may have been impacted by ongoing antibiosis. 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 Is on Antifungal therapy as per ID. Wean oxygen as tolerated Continue dulera, spiriva, montelukast, albuterol, taper prednisone and may be d /c in 2-3 days On diuretics for LE swelling
[2016-12-17] MEDS: VORICONAZOLE 50 MG PO SCH (20:07)
[2016-12-18 08:00] VITALS: BP 105/52
[2016-12-18] MEDS: Furosemide IV* 10 MG/ML VIAL (40 MG) IV SCH (08:22)
[2016-12-18] MEDS: Metoprolol Succinate XL TAB* 25 MG PO SCH ×2 (08:22→08:30)
[2016-12-18] MEDS: Nystatin SUSPENSION* 100000 UNITS/ML 5 ML UDC PO SCH (08:22)
[2016-12-18] MEDS: Potassium Chlor TAB* 20 MEQ TAB.ER PO SCH (08:23)
[2016-12-18] MEDS: VORICONAZOLE 50 MG PO SCH (08:23)
[2016-12-18] MEDS: guaiFENesin ER TAB 600 MG PO SCH (08:23)
[2016-12-18] MEDS: Omeprazole CAP* 20 MG PO SCH (08:23)
[2016-12-18] MEDS: amLODIPine TAB* 5 MG PO SCH (08:23)
[2016-12-18] MEDS: Montelukast Sodium TAB* 10 MG PO SCH (08:23)
[2016-12-18] MEDS: Mometasone/Formoter 200/5 MDI INH SCH (09:07)
[2016-12-18] MEDS: Tiotropium CAP.INH* CAP.INH/18 MCG INH SCH (09:07)
[2016-12-18 09:32] LABS: Hematocrit 25 % (42-52); Hemoglobin 8.3 g/dl (14.0-18.0); Mean Corpuscular HGB Conc 34 g/dl (31-36); Mean Corpuscular Hemoglobin 31 pg (27-31); Mean Corpuscular Volume 92 fL (80-94); Mean Platelet Volume 8 um3 (7.4-10.4); Red Blood Count 2.68 10^6/ul (4.0-5.4); Red Cell Distribution Width 15 % (10.5-15); White Blood Count 9.9 10^3/ul (3.5-10.8)
[2016-12-18 09:33] LABS: Add Diff/Slide Review? Slide Review Added; Comments Flag Yes
[2016-12-18 09:47] LABS: Albumin 2.6 g/dL (3.2-5.2); BUN/Creatinine Ratio 25.5 (8-20); Calcium 7.8 mg/dL (8.6-10.3); EGFR African American 206.6 (>60); EGFR Non-African American 160.7 (>60); Globulin 2.8 g/dL (2-4); Potassium 3.7 mmol/L (3.5-5.0); Total Bilirubin 0.6 mg/dL (0.2-1.0); Total Protein 5.4 g/dL (6.4-8.9)
[2016-12-18 10:04] LABS: Eosinophils % 1 % (0-6); Hypochromasia 1+; Immature Granulocytes 2 % (0-9); Neutrophil % 83 % (38-83); Polychromasia 1+
--- NOTE | 2016-12-18 14:18 | PN ---
Hospitalist Progress Note . HOSPITALIST DISCHARGE NOTE: See dc instructions and summary by me. Patient stable for dc dc instructions reviewed with the patient at the bedside. DC patient home today.
== END 2016-12-18 14:50 | disposition home health service (06) | DRG 377 ==
LOC: ED 20:35 → MEDTELE 12-10 01:34 → OBSVTOIN 12-10 11:15 → MED 12-15 20:30
PROVIDERS: ADMIT Internal Medicine; ATTEND Internal Medicine
PROC: 30233N1 Transfusion of Nonautologous Red Blood Cells into Peripheral Vein, Percutaneous Approach (ICD-10-PCS; principal; 2016-12-10)
PROC: 0DB68ZX Excision of Stomach, Via Natural or Artificial Opening Endoscopic, Diagnostic (ICD-10-PCS; 2016-12-11)
PROC: 02HV33Z Insertion of Infusion Device into Superior Vena Cava, Percutaneous Approach (ICD-10-PCS; 2016-12-15)
PROC: 0B9L3ZX Drainage of Left Lung, Percutaneous Approach, Diagnostic (ICD-10-PCS; 2016-12-15)
DX: K25.4 Chronic or unspecified gastric ulcer with hemorrhage (principal); J18.9 Pneumonia, unspecified organism; B44.9 Aspergillosis, unspecified; E46 Unspecified protein-calorie malnutrition; I48.91 Unspecified atrial fibrillation; J44.0 Chronic obstructive pulmonary disease with (acute) lower respiratory infection; D62 Acute posthemorrhagic anemia; J44.1 Chronic obstructive pulmonary disease with (acute) exacerbation; K26.4 Chronic or unspecified duodenal ulcer with hemorrhage; Z88.8 Allergy status to other drugs, medicaments and biological substances; E78.00 Pure hypercholesterolemia, unspecified; I10 Essential (primary) hypertension; Z85.46 Personal history of malignant neoplasm of prostate; Z82.49 Family history of ischemic heart disease and other diseases of the circulatory system; Z82.3 Family history of stroke; Z87.891 Personal history of nicotine dependence; K25.9 Gastric ulcer, unspecified as acute or chronic, without hemorrhage or perforation; R91.1 Solitary pulmonary nodule; R60.1 Generalized edema; T50.995A Adverse effect of other drugs, medicaments and biological substances, initial encounter; Z68.25 Body mass index [BMI] 25.0-25.9, adult
CPT/HCPCS: 36415; 71020; 71250; 77012; 80048; 80053; 80202; 81003; 82270; 82565; 82607; 83605; 83735; 83880; 84134; 84484; 84520; 85025; 85027; 85379; 85610; 85730; 86140; 86850; 86900; 86901; 86922; 87040; 87070; 87077; 87102; 87116; 87205; 87206; 87385; 87899; 88172; 88173; 93005; 94640; 94760; A9270-GY; J1940; J2250; J3370; J3465; J7512; P9040

== ENCOUNTER 2017-03-01 08:19 | Inpatient (IN) | payer MEDICARE ==
[2017-03-01] MEDS ORDERED: Aspirin Low Dose CHEW TAB* 81 MG PO ONE (08:48)
[2017-03-01 09:03] LABS: Hematocrit 34 % (42-52); Mean Corpuscular HGB Conc 33 g/dl (31-36); Mean Corpuscular Hemoglobin 29 pg (27-31); Mean Corpuscular Volume 87 fL (80-94); Mean Platelet Volume 8 um3 (7.4-10.4); Red Blood Count 3.87 10^6/ul (4.0-5.4); Red Cell Distribution Width 17 % (10.5-15); White Blood Count 9.8 10^3/ul (3.5-10.8)
[2017-03-01 09:08] LABS: Add Diff/Slide Review? Slide Review Added; Comments Flag Yes
--- NOTE | 2017-03-01 09:26 | RAD ---
INDICATION: Chest pain. COMPARISON: Comparison is made with a prior study from December 09, 2016. Correlation is also made with a prior chest CT from February 17, 2017. TECHNIQUE: A portable view of the chest was obtained. FINDINGS: Cardiac and mediastinal contours appear to be within normal limits. The lungs are hyperinflated. There are patchy infiltrates at both lung bases with slight improvement on the left side. The right basilar infiltrate appears new. No pleural effusion is seen. IMPRESSION: 1. NEW SMALL RIGHT BASILAR INFILTRATE. 2. LEFT BASILAR INFILTRATE IMPROVED.
[2017-03-01 09:57] LABS: BUN/Creatinine Ratio 31.2 (8-20); Calcium 9.2 mg/dL (8.6-10.3); EGFR African American 128.4 (>60); EGFR Non-African American 99.9 (>60); Magnesium 1.8 mg/dL (1.9-2.7); Potassium 4.2 mmol/L (3.5-5.0); Total Bilirubin 0.3 mg/dL (0.2-1.0); Total Protein 6.8 g/dL (6.4-8.9)
[2017-03-01 10:00] LABS: Troponin I 0.02 ng/mL (<0.04)
[2017-03-01] MEDS ORDERED: Iohexol 350* (CONTRAST) 500 ML MDV IV ONE (10:47)
[2017-03-01 11:15] LABS: Albumin 3.6 g/dL (3.2-5.2); Globulin 3.2 g/dL (2-4)
--- NOTE | 2017-03-01 11:25 | RAD ---
INDICATION: Shortness of breath. COMPARISON: Comparison is made with prior chest x-ray study from December 10, 2016 and February 17, 2017. TECHNIQUE: A CT angiogram of the chest was performed with intravenous following intravenous injection of 67 ml of Omnipaque 350 nonionic contrast. Contiguous axial sections were obtained from the lung apices through the lung bases. Images were reconstructed in the coronal and sagittal planes. FINDINGS: There is relatively homogeneous opacification of the pulmonary arteries. No intraluminal filling defect or pulmonary embolism is seen. The heart is within normal limits in size. No pericardial effusion is present. The aorta is normal in caliber and demonstrates homogeneous contrast opacification without evidence for dissection. There is mild to moderate calcific plaque present. No significant enlarged mediastinal or hilar lymph nodes are seen. There is a new right lower lobe infiltrate with air bronchograms and a trace right pleural effusion. There is no change in the previously noted left upper lobe infiltrate. Again note is made of 2 small pulmonary nodules in the left upper lobe measuring 4 and 6 mm each which are unchanged. There are compression fractures of upper and lower dorsal vertebral bodies which are unchanged. IMPRESSION: 1. NO EVIDENCE FOR PULMONARY EMBOLISM. 2. NEW RIGHT LOWER LOBE INFILTRATE MOST CONSISTENT WITH PNEUMONIA. 3. LEFT UPPER LOBE INFILTRATE, UNCHANGED. 4. SMALL PULMONARY NODULES IN THE LEFT UPPER LOBE NOTED ON THE PRIOR STUDY RECOMMEND A FOLLOW-UP NONCONTRAST CT OF THE CHEST IN 4 MONTHS TIME. 5. MULTIPLE DORSAL VERTEBRAL BODY COMPRESSION FRACTURES, UNCHANGED.
[2017-03-01] MEDS ORDERED: methylPREDNISolone 125 MG* 2 ML VIAL IV ONE (12:14)
[2017-03-01] MEDS ORDERED: Albuterol/Ipratropium NEB.SOL* Albuterol 2.5 MG/Ipratropium 0.5 MG 3 ML INH ONE (12:14)
--- NOTE | 2017-03-01 12:15 | ED ---
Joe Mckeon Alok, scribed for Peewee Garner MD on 03/01/17 at 0837 . Shortness of Breath - HPI Summary HPI Summary: 71M presents to the ED with SOB and dyspnea for the last week. Pt states his SOB worsens with exertion. Pt also notes back pain for the last week, initially a frontal pain which has transitioned to the upper back. Pt describes the pain as sharp and states it worsens with movement. Pt has been taking Tylenol to manage pain which has been successful until yesterday. Pt also notes productive cough. Pt has been taking Metoprolol since 3 months ago, recently increasing his dosage 1.5 weeks ago and then reducing it again 5 days ago. Pt states he has taken his Metroprolol today. Pt had a cardiac catheterization 5 days ago. PMHx includes COPD. - History of Current Complaint Chief Complaint: EDShortnessOfBreath Time Seen by Provider: 03/01/17 08:31 Hx Obtained From: Patient Onset/Duration: Gradual Onset, Lasting Days, Still Present Timing: Constant Current Severity: Moderate Dyspnea At: Exertion Aggrevating Factors: Movement, Deep Breaths Alleviating Factors: OTC Meds - Tylenol Associated Signs & Symptoms: Cough (Productive) - Allergy/Home Medications Allergies/Adverse Reactions: Allergies Allergy/AdvReac Type Severity Reaction Status Date / Time Adhesive Tape [Plastic Tape] Allergy Intermediate Bleeding Verified 02/24/17 12: 23 Simvastatin Allergy See Comment Verified 02/20/17 15:49 Atorvastatin [From Lipitor] AdvReac Intermediate See Comment Verified 02/20/17 15:49 PMH/Surg Hx/FS Hx/Imm Hx Endocrine/Hematology History: Denies: Hx Diabetes, Hx Thyroid Disease Cardiovascular History: Reports: Hx Hypercholesterolemia, Hx Hypertension, Other Cardiovascular Problems/Disorders - Afib Denies: Hx Pacemaker/ICD Respiratory History: Reports: Hx Asthma, Hx Chronic Obstructive Pulmonary Disease (COPD), Hx Pneumonia, Other Respiratory Problems/Disorders - COPD GI History: Denies: Hx Ulcer History: Denies: Hx Dialysis Musculoskeletal History: Reports: Hx Orthopedic Injury - Right shoulder, & broken left foot (many years ago) Denies: Hx Back Problems Sensory History: Reports: Hx Contacts or Glasses Denies: Hx Hearing Aid, Hx Hearing Problem Opthamlomology History: Reports: Hx Contacts or Glasses Neurological History: Denies: Hx Dementia, Hx Seizures Psychiatric History: Denies: Hx Panic Disorder - Cancer History Cancer Type, 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 - Surgical History Surgery Procedure, Year, and Place: PROSTATECTOMY,Tonsilectomy Infectious Disease History: Denies: Hx Clostridium Difficile, Hx Hepatitis, Hx Human Immunodeficiency Virus (HIV), Hx of Known/Suspected MRSA, Hx Shingles, Hx Tuberculosis, Hx Known/ Suspected VRE, Hx Known/Suspected VRSA, History Other Infectious Disease, Traveled Outside the [place] in Last 30 Days - Family History Known Family History: Positive: Hypertension - Social History Occupation: Retired Lives: With Family Alcohol Use: None Hx Substance Use: No Substance Use Type: Reports: None Hx Tobacco Use: No Smoking Status (MU): Former Smoker Type: Cigarettes Amount Used/How Often: 30 +years Review of Systems Negative: Fever Positive: Shortness Of Breath, Other - dyspnea Positive: Other - Back Pain All Other Systems Reviewed And Are Negative: Yes Physical Exam Triage Information Reviewed: Yes Vital Signs On Initial Exam: Initial Vitals Temp Pulse Resp BP Pulse Ox 98.3 F 73 17 130/100 88 03/01/17 08:21 03/01/17 08:21 03/01/17 08:21 03/01/17 08:21 03/01/17 08:21 Vital Signs Reviewed: Yes Appearance: Positive: Well-Appearing, No Pain Distress Skin: Positive: Warm, Skin Color Reflects Adequate Perfusion, Dry Head/Face: Positive: Normal Head/Face Inspection Eyes: Positive: Normal ENT: Positive: Normal ENT inspection Neck: Positive: Supple, Nontender Respiratory/Lung Sounds: Positive: Other - Diminished breath sounds Cardiovascular: Positive: RRR Abdomen Description: Positive: Nontender, Soft Bowel Sounds: Positive: Present Musculoskeletal: Positive: Normal Neurological: Positive: Normal Psychiatric: Positive: Normal, Affect/Mood Appropriate Diagnostics - Vital Signs Vital Signs Temp Pulse Resp BP Pulse Ox 03/01/17 08:21 98.3 F 73 17 130/100 88 - Laboratory Lab Results: Lab Results 03/01/17 03/01/17 03/01/17 Range/Units 08:48 08:48 08:48 WBC 9.8 (3.5-10.8) 10^3/ul RBC 3.87 L (4.0-5.4) 10^6/ul Hgb 11.0 L (14.0-18.0) g/dl Hct 34 L (42-52) % MCV 87 (80-94) fL MCH 29 (27-31) pg MCHC 33 (31-36) g/dl RDW 17 H (10.5-15) % Plt Count 425 (150-450) 10^3/ul MPV 8 (7.4-10.4) um3 Neut % (Auto) 70.3 (38-83) % Lymph % (Auto) 12.9 L (25-47) % [place] % (Auto) 12.7 H (1-9) % Eos % (Auto) 2.9 (0-6) % Baso % (Auto) 1.2 (0-2) % Absolute Neuts (auto) 6.9 (1.5-7.7) 10^3/ul Absolute Lymphs (auto) 1.3 (1.0-4.8) 10^3/ul Absolute Monos (auto) 1.2 H (0-0.8) 10^3/ul Absolute Eos (auto) 0.3 (0-0.6) 10^3/ul Absolute Basos (auto) 0.1 (0-0.2) 10^3/ul Absolute Nucleated RBC 0 10^3/ul Nucleated RBC % 0 INR (Anticoag Therapy) 0.89 (0.89-1.11) Sodium 133 (133-145) mmol/L Potassium 4.2 (3.5-5.0) mmol/L Chloride 103 (101-111) mmol/L Carbon Dioxide 26 (22-32) mmol/L Anion Gap 4 (2-11) mmol/L BUN 24 (6-24) mg/dL Creatinine 0.77 (0.67-1.17) mg/dL Est GFR ( Amer) 128.4 (>60) Est GFR (Non-Af Amer) 99.9 (>60) BUN/Creatinine Ratio 31.2 H (8-20) Glucose 101 H (70-100) mg/dL Lactic Acid (0.5-2.0) mmol/L Calcium 9.2 (8.6-10.3) mg/dL Magnesium 1.8 L (1.9-2.7) mg/dL Total Bilirubin 0.30 (0.2-1.0) mg/dL AST 22 (13-39) U/L ALT 19 (7-52) U/L Alkaline Phosphatase 99 (34-104) U/L Troponin I 0.02 (<0.04) ng/mL Total Protein 6.8 (6.4-8.9) g/dL Albumin 3.6 (3.2-5.2) g/dL Globulin 3.2 (2-4) g/dL Albumin/Globulin Ratio 1.1 (1-3) 03/01/17 Range/Units 08:48 WBC (3.5-10.8) 10^3/ul RBC (4.0-5.4) 10^6/ul Hgb (14.0-18.0) g/dl Hct (42-52) % MCV (80-94) fL MCH (27-31) pg MCHC (31-36) g/dl RDW (10.5-15) % Plt Count (150-450) 10^3/ul MPV (7.4-10.4) um3 Neut % (Auto) (38-83) % Lymph % (Auto) (25-47) % [place] % (Auto) (1-9) % Eos % (Auto) (0-6) % Baso % (Auto) (0-2) % Absolute Neuts (auto) (1.5-7.7) 10^3/ul Absolute Lymphs (auto) (1.0-4.8) 10^3/ul Absolute Monos (auto) (0-0.8) 10^3/ul Absolute Eos (auto) (0-0.6) 10^3/ul Absolute Basos (auto) (0-0.2) 10^3/ul Absolute Nucleated RBC 10^3/ul Nucleated RBC % INR (Anticoag Therapy) (0.89-1.11) Sodium (133-145) mmol/L Potassium (3.5-5.0) mmol/L Chloride (101-111) mmol/L Carbon Dioxide (22-32) mmol/L Anion Gap (2-11) mmol/L BUN (6-24) mg/dL Creatinine (0.67-1.17) mg/dL Est GFR ( Amer) (>60) Est GFR (Non-Af Amer) (>60) BUN/Creatinine Ratio (8-20) Glucose (70-100) mg/dL Lactic Acid 0.7 (0.5-2.0) mmol/L Calcium (8.6-10.3) mg/dL Magnesium (1.9-2.7) mg/dL Total Bilirubin (0.2-1.0) mg/dL AST (13-39) U/L ALT (7-52) U/L Alkaline Phosphatase (34-104) U/L Troponin I (<0.04) ng/mL Total Protein (6.4-8.9) g/dL Albumin (3.2-5.2) g/dL Globulin (2-4) g/dL Albumin/Globulin Ratio (1-3) Result Diagrams: 03/01/17 08:48 03/01/17 08:48 Lab Statement: Any lab studies that have been ordered have been reviewed, and results considered in the medical decision making process. - Radiology CXR Xray Interpretation: Positive (See Comments) - IMPRESSION: 1. NEW SMALL RIGHT BASILAR INFILTRATE. 2. LEFT BASILAR INFILTRATE IMPROVED. Radiology Interpretation Completed By: Radiologist - CT Chest/Thorax CTA CT Interpretation: Positive (See Comments) - IMPRESSION: 1. NO EVIDENCE FOR PULMONARY EMBOLISM. 2. NEW RIGHT LOWER LOBE INFILTRATE MOST CONSISTENT WITH PNEUMONIA. 3. LEFT UPPER LOBE INFILTRATE, UNCHANGED. 4. SMALL PULMONARY NODULES IN THE LEFT UPPER LOBE NOTED ON THE PRIOR STUDY RECOMMEND A FOLLOW-UP NONCONTRAST CT OF THE CHEST IN 4 MONTHS TIME. 5. MULTIPLE DORSAL VERTEBRAL BODY COMPRESSION FRACTURES, UNCHANGED. CT Interpretation Completed By: Radiologist - EKG 0908 Cardiac Rate: NL - 68 bpm EKG Rhythm: Sinus Rhythm Ectopy: PVCs Course/Dx - Course Course Of Treatment: Mr. Vargas presented with a C/O back pain for a few days which started in his chest. It was exacerbated with breathing and exertion. He minimized SOB but was clearly SOB on arrival. He saw last and is supposed to start home O2 but has not yet. I didn't hear anywheezes but his lung sounds were reduced. He uses nebs at home. - Diagnoses Provider Diagnoses: COPD exacerbation - Physician Notifications Discussed Care of Patient With: Lima Alvares - Will admit pt pending chest CTA Time Discussed With Above Provider: 10:44 Discharge - Discharge Plan Condition: Stable Disposition: ADMITTED TO [facility] Referrals: Jelly Callahan MD [Primary Care Provider] - The documentation as recorded by the Joe davis Alok accurately reflects the service I personally performed and the decisions made by , Peewee Garner MD.
[2017-03-01] MEDS ORDERED: Magnesium Sulfate 2 GM IV* 2 GM/50 ML BAG IVPB ONE (12:54)
[2017-03-01] MEDS ORDERED: Albuterol HFA INHALER* 8 gm MDI INH PRN (13:06)
[2017-03-01] MEDS: Heparin VIAL(*) 5000 UNITS/ML VIAL (FIVE THOUSAND) SUBCUT SCH ×2 (13:42→21:22)
[2017-03-01] MEDS ORDERED: Spiriva Inhaler DEVICE* 1 EACH DEVICE INH ONE (14:00)
[2017-03-01] MEDS ORDERED: Zosyn per Pharmacy* NOTE FOLLOW UP SCH (14:00)
[2017-03-01] MEDS ORDERED: Acetaminophen TAB* 325 MG PO PRN (14:23)
[2017-03-01] MEDS: Azithromycin IV(*) 500 MG in NS 0.9% 250 ML* 250 ML IVPB SCH (15:50)
--- NOTE | 2017-03-01 16:50 | HP ---
CC: Jelly Garcia MD * HISTORY AND PHYSICAL: DATE OF ADMISSION: 03/01/17 PRIMARY CARE PROVIDER: Jelly Garcia MD ATTENDING PHYSICIAN: Lima Russell MD* (dictated by Carol Brennan NP). CHIEF COMPLAINT: Shortness of breath. HISTORY OF PRESENT ILLNESS: Mr. Celis is a 71-year-old male with past medical history significant for COPD, paroxysmal atrial fibrillation, coronary artery disease, ischemic cardiomyopathy and right lung fungal infection who is followed by Dr. Israel and Dr. Means for treatment as an outpatient. The patient states that he has some shortness of breath at baseline with dyspnea, but over the last week this has gotten worse, especially with exertion. The patient also developed some back discomfort approximately a week ago that he describes as a sharpness. It is worse with movement. He had been taking Tylenol which was helping with the discomfort. The patient found that the pain is better with lying and worse with standing. The patient has also noticed an increase in his chronic cough and he has been producing a clear sputum over the last few days. The patient was just seen by Dr. Israel on , 02/26/17, for a followup and it was felt at that time he was soon going to need home oxygen, but he had not been set up with oxygen yet. The patient denies any fever , chills, nausea, vomiting, diarrhea, abdominal pain, diaphoresis or urinary symptoms. The patient underwent a cardiac catheterization with Dr. Steel 5 days ago on 02/24/17 to evaluate his LV dysfunction and due to an abnormal stress test. The cardiac catheterization showed an occluded right coronary artery with extensive collateral circulation, normal LV size and systolic function. Mild hypokinesis at the base of the inferior wall. The patient did not require any stent placement. Due to the patient's continued symptoms, he decided to present to the emergency room for further evaluation of his symptoms. While in the emergency room, the patient had chest x-ray showing a new small right basilar infiltrate and a left basilar infiltrate that was improved. He then underwent a chest thoracic CTA showing no evidence for pulmonary embolus. A new right lower lobe infiltrate most consistent with pneumonia, a left upper lobe infiltrate that is unchanged. Small pulmonary nodules in the left upper lobe were noted on the prior study. The patient has multiple dorsal vertebral body compression fractures that are unchanged. The patient received IV Solu- Medrol and aspirin while in the emergency room and the hospitalists were asked to evaluate the patient for admission. PAST MEDICAL HISTORY: 1. Chronic obstructive pulmonary disease. 2. Hyperlipidemia. 3. Hypertension. 4. Paroxysmal atrial fibrillation. 5. Coronary artery disease. 6. Ischemic cardiomyopathy. 7. Prostate cancer. 8. History of GI bleed in December 2016 caused by a duodenal ulcer. 9. Invasive pulmonary aspergillosis. PAST SURGICAL HISTORY: 1. Status post prostatectomy in 2002. 2. Status post tonsillectomy. ALLERGIES: 1. SIMVASTATIN. 2. LIPITOR (the patient is able to take atorvastatin). 3. ADHESIVE TAPE. FAMILY HISTORY: The patient's mother passed from a myocardial infarction. His father passed from a cerebrovascular accident. The patient denies any family history of diabetes mellitus. The patient's brother had a history of prostate cancer. SOCIAL HISTORY: The patient is a former smoker, he smoked 1ppd, quitting in approximately 1997. The patient denies alcohol or recreational drug use. 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 He lives with his , Nicole Celis, who will be his surrogate decision maker in the event he is unable to make decisions for himself. REVIEW OF SYSTEMS: I performed a 14-point review of systems. All the pertinent positives and negatives are mentioned in the history of present illness. The remaining review of systems are negative. PHYSICAL EXAMINATION GENERAL APPEARANCE: The patient is alert, pleasant, appears to be in no acute distress. VITAL SIGNS: Temperature 98.2, heart rate 68, respiratory rate 18, O2 sat 96%, blood pressure 114/58. HEENT: Normocephalic, atraumatic. Pupils are equal and reactive to light. Extraocular movements are intact. RESPIRATORY: There is no accessory muscle use. The lungs are clear to auscultation, but diminished and there are fine crackles heard in the right lower lobe posteriorly. CARDIOVASCULAR: Regular rate and rhythm. S1 and S2 present. There is no murmurs, rubs, or gallops heard. ABDOMEN: Soft, nontender, and nondistended. There are bowel sounds present x4. EXTREMITIES: There is no lower extremity edema. DP and PT pulses are 2+ and symmetric. MUSCULOSKELETAL: There is no clubbing or cyanosis noted. The patient exhibits good strength in all extremities. NEUROLOGIC: The patient is alert and oriented x4. Cranial nerves II through XII are grossly intact. PSYCHOLOGICAL: The patient is calm and cooperative. SKIN: There is no rashes or abnormalities seen. DIAGNOSTIC STUDIES/LABORATORY DATA: Sodium 133, potassium 4.2, chloride 103, CO2 of 26, BUN 24, creatinine 0.77, and glucose 101. Magnesium 1.8. Troponin 0.02. White blood cell count 9.8, hemoglobin 11.0, hematocrit 34, and platelet count 425,000. EKG shows sinus rhythm with a rate of 68 and PVC. This EKG is similar to previous EKG from 12/09/16, at which time though the patient was in a sinus tachycardia. 1. Chest x-ray from today. Radiologist impression: New small right basilar infiltrate. Left basilar infiltrate improved. 2. Chest CTA from today. Radiologist impression: No evidence of pulmonary embolus. New right lower lobe infiltrate most consistent with pneumonia. Left upper lobe infiltrate, unchanged. Small pulmonary nodules in the left upper lobe as noted on the prior study. Recommend a followup noncontrast CT of the chest in 4 months' time. Multiple dorsal vertebral body compression fractures, unchanged. IMPRESSION: Mr. Celis is a 71-year-old male with past medical history significant for chronic obstructive pulmonary disease, hypertension, hyperlipidemia, paroxysmal atrial fibrillation, coronary artery disease, ischemic cardiomyopathy, and aspergillus lung infection who presents to the emergency room with complaints of shortness of breath. He will be admitted on observation for chronic obstructive pulmonary disease exacerbation and pneumonia. ASSESSMENT/PLAN: 1. Shortness of breath. I suspect this is secondary to chronic obstructive pulmonary disease exacerbation and a right lower lobe pneumonia. The patient has been hospitalized in the last 90 days and had also completed a course of Levaquin in the last month. There is some concern for possible atypical pneumonia, so we will place the patient on Zosyn and azithromycin to cover for the atypical bacteria. We will ask Dr. Israel and Dr. Means to consult on the patient while he is here as they have both been following with him outpatient for his aspergillus infection of the left lung. The patient will receive supplemental oxygen as needed. He will likely need to be discharged to home with oxygen. The patient is currently afebrile and has no leukocytosis. The patient will have Mucinex twice daily in addition to standing albuterol inhalers. We will continue him on his home Symbicort and Spiriva. 2. Chest pain. The patient's initial troponin is 0.02. Followup troponin is 0.01. We will monitor the patient on telemetry. I suspect his chest pain is musculoskeletal due to his coughing. He recently had a cardiac catheterization without significant findings. 3. Thrush. The patient has thrush in his mouth. He is started on nystatin swish and swallow twice daily yesterday. We will continue that to complete his course for 9 more days. 4. Invasive pulmonary aspergillus. The patient will be continued on voriconazole that he has been on as an outpatient. 5. Hypertension. The patient will be continued on his home lisinopril and amlodipine. 6. Coronary artery disease. The patient will be continued on his home metoprolol, statin and aspirin. 7. Paroxysmal atrial fibrillation. The patient will be continued on his beta joya. He is not currently anticoagulated. I suspect this is related to a recent GI bleed. 8. Ischemic cardiomyopathy. Continue home Lisinopril. 9. Fluids, electrolytes, and nutrition. The patient will be on a heart healthy diet. 10. Code status. Full code. 11. DVT prophylaxis. The patient will be on subcu heparin. 12. Disposition. Observation. TIME SPENT: The time for this admission was 60 minutes, 35 minutes was spent with the patient and discussing medications, past medical history and the events leading up to their arrival today and performing physical examination. The case has been reviewed with the attending, Dr. Russell, who agrees with the plan of care. Reviewed by MANAN NICHOLAS 03/04/17 1352 [id number]/[facility] #: [id number] NIKKY
[2017-03-01] MEDS: Atorvastatin* 20 MG TAB PO SCH (17:27)
[2017-03-01] MEDS: Omeprazole CAP* 20 MG PO SCH (17:27)
[2017-03-01] MEDS: Albuterol 2.5 MG/3 ML NEB.SOL* (0.083%) INH SCH (20:02)
[2017-03-01] MEDS: Mometasone/Formoter 200/5 MDI INH SCH (20:05)
[2017-03-01] MEDS: ZOSYN 3.375 GM Q8H per EXTENDED INFUSION IVPB SCH ×2 (20:22)
[2017-03-01] MEDS ORDERED: VORICONAZOLE 200 MG PO SCH (21:00)
[2017-03-01] MEDS: Furosemide TAB* 20 MG PO SCH (21:21)
[2017-03-01] MEDS: Metoprolol Succinate XL TAB* 25 MG PO SCH (21:21)
[2017-03-01] MEDS: Nystatin SUSPENSION* 100000 UNITS/ML 5 ML UDC SWISH SWAL SCH (21:21)
[2017-03-01] MEDS: guaiFENesin ER TAB 600 MG PO SCH (21:21)
[2017-03-02] MEDS: Albuterol 2.5 MG/3 ML NEB.SOL* (0.083%) INH SCH ×4 (01:13→20:24)
[2017-03-02] MEDS: ZOSYN 3.375 GM Q8H per EXTENDED INFUSION IVPB SCH ×6 (03:23→18:22)
[2017-03-02] MEDS: Heparin VIAL(*) 5000 UNITS/ML VIAL (FIVE THOUSAND) SUBCUT SCH ×3 (06:01→20:47)
[2017-03-02 06:02] LABS: Hematocrit 35 % (42-52); Hemoglobin 11.5 g/dl (14.0-18.0); Mean Corpuscular HGB Conc 33 g/dl (31-36); Mean Corpuscular Hemoglobin 30 pg (27-31); Mean Corpuscular Volume 89 fL (80-94); Mean Platelet Volume 8 um3 (7.4-10.4); Red Blood Count 3.91 10^6/ul (4.0-5.4); Red Cell Distribution Width 16 % (10.5-15); White Blood Count 5.1 10^3/ul (3.5-10.8)
[2017-03-02 06:03] LABS: Add Diff/Slide Review? Slide Review Added; Comments Flag Yes
[2017-03-02 06:28] LABS: Potassium 4.2 mmol/L (3.5-5.0)
[2017-03-02] MEDS: Mometasone/Formoter 200/5 MDI INH SCH ×2 (07:35→20:25)
[2017-03-02] MEDS: Tiotropium CAP.INH* CAP.INH/18 MCG INH SCH (07:35)
[2017-03-02] MEDS: Omeprazole CAP* 20 MG PO SCH ×2 (07:48→15:17)
[2017-03-02 08:50] LABS: BUN/Creatinine Ratio 26.8 (8-20); EGFR African American 119.5 (>60); EGFR Non-African American 92.9 (>60)
--- NOTE | 2017-03-02 08:52 | PN ---
Subjective Date of Service: 03/02/17 Interval History: Mr. Evans states that he is feeling much better than on arrival yesterday. His SOB is much improved. He denies chest pain, nausea, or abdominal pain. Objective Active Medications: Acetaminophen (Tylenol Tab*) 650 mg PO Q4H PRN Albuterol (Ventolin 2.5 Mg/3 Ml Neb.Mariella*) 2.5 mg INH [id number] AWAKE [facility] Albuterol (Ventolin Hfa Inhaler*) 2 puff INH QID PRN Amlodipine Besylate (Norvasc Tab*) 10 mg PO DAILY SHAUNA Aspirin (Aspirin Ec Low Dose*) 81 mg PO DAILY SHAUNA Atorvastatin Calcium (Lipitor*) 20 mg PO QPM SHAUNA Furosemide (Lasix Tab*) 20 mg PO BID SHAUNA Guaifenesin (Mucinex*) 600 mg PO BID SHAUNA Heparin Sodium (Porcine) (Heparin Vial(*)) 5,000 units SUBCUT Q8HR SHAUNA Azithromycin 500 mg/ Sodium (Chloride) 250 mls @ 250 mls/hr IVPB Q24H [facility]AU[facility] Piperacillin Sod/Tazobactam (Sod 3.375 gm/ Sodium Chloride) 100 mls @ 25 mls/ hr IVPB Q8H SHAUNA Lisinopril (Prinivil Tab*) 10 mg PO DAILY SHAUNA Metoprolol Succinate (Toprol Xl Tab*) 25 mg PO BID SHAUNA Mometasone Furoate/Formoterol Fumar (Dulera 200/5 Mdi*) 2 puff INH BID SHAUNA Montelukast Sodium (Singulair Tab*) 10 mg PO DAILY [facility] Pto Voriconazole 200 Mg. Tablet* Non Formulary Med* 1 dose PO Q12HR SHAUNA Nystatin (Nystatin Suspension*) 500,000 units SWISH SWAL BID SHAUNA Omeprazole (Prilosec Cap*) 20 mg PO 0730,1630 [facility] Pharmacy Consult (Zosyn Per Pharmacy*) 1 note FOLLOW UP .ZOSYN PER PHARMACY [facility] Potassium Chloride (Klor Con Er Tab*) 20 meq PO DAILY SHAUNA Prednisone (Deltasone Tab*) 50 mg PO DAILY SHAUNA Tiotropium [place] (Spiriva Cap.Inh*) 1 cap INH DAILY [facility] Vital Signs 03/01/17 03/01/17 03/01/17 12:00 12:13 15:22 Temperature 97.2 F 97.6 F Pulse Rate 67 70 64 Respiratory 18 20 20 Rate Blood Pressure 128/58 111/57 (mmHg) O2 Sat by Pulse 96 93 97 Oximetry 03/01/17 03/01/17 03/01/17 17:27 19:15 20:00 Temperature Pulse Rate 67 Respiratory 20 16 Rate Blood Pressure 113/51 (mmHg) O2 Sat by Pulse 97 99 Oximetry 03/01/17 03/01/17 03/02/17 20:05 23:23 00:00 Temperature 97.8 F Pulse Rate 76 74 Respiratory 16 16 Rate Blood Pressure 127/58 (mmHg) O2 Sat by Pulse 99 94 99 Oximetry 03/02/17 03/02/17 03/02/17 03:24 04:05 07:22 Temperature 98.3 F 97.4 F Pulse Rate 70 67 69 Respiratory 16 16 16 Rate Blood Pressure 137/57 121/57 (mmHg) O2 Sat by Pulse 97 92 98 Oximetry 03/02/17 03/02/17 07:37 07:51 Temperature Pulse Rate 74 Respiratory 18 Rate Blood Pressure (mmHg) O2 Sat by Pulse 98 98 Oximetry Oxygen Devices in Use Now: None Appearance: Male sitting up in chair in NAD Eyes: No Scleral Icterus Ears/Nose/Mouth/Throat: Mucous Membranes Moist Neck: Trachea Midline Respiratory: Symmetrical Chest Expansion and Respiratory Effort, Clear to Auscultation Cardiovascular: NL Sounds; No Murmurs; No JVD, No Edema Abdominal: NL Sounds; No Tenderness; No Distention Lymphatic: No Cervical Adenopathy Extremities: No Edema Skin: No Rash or Ulcers Neurological: Alert and Oriented x 3, NL Muscle Strength and Tone Nutrition: Taking PO's Result Diagrams: 03/02/17 05:27 03/02/17 05:27 Additional Lab and Data: Lab Results 03/01/17 03/01/17 03/01/17 Range/Units 08:48 08:48 08:48 WBC 9.8 (3.5-10.8) 10^3/ul RBC 3.87 L (4.0-5.4) 10^6/ul Hgb 11.0 L (14.0-18.0) g/dl Hct 34 L (42-52) % MCV 87 (80-94) fL MCH 29 (27-31) pg MCHC 33 (31-36) g/dl RDW 17 H (10.5-15) % Plt Count 425 (150-450) 10^3/ul MPV 8 (7.4-10.4) um3 Neut % (Auto) 70.3 (38-83) % Lymph % (Auto) 12.9 L (25-47) % [place] % (Auto) 12.7 H (1-9) % Eos % (Auto) 2.9 (0-6) % Baso % (Auto) 1.2 (0-2) % Absolute Neuts (auto) 6.9 (1.5-7.7) 10^3/ul Absolute Lymphs (auto) 1.3 (1.0-4.8) 10^3/ul Absolute Monos (auto) 1.2 H (0-0.8) 10^3/ul Absolute Eos (auto) 0.3 (0-0.6) 10^3/ul Absolute Basos (auto) 0.1 (0-0.2) 10^3/ul Absolute Nucleated RBC 0 10^3/ul Nucleated RBC % 0 INR (Anticoag Therapy) 0.89 (0.89-1.11) Sodium 133 (133-145) mmol/L Potassium 4.2 (3.5-5.0) mmol/L Chloride 103 (101-111) mmol/L Carbon Dioxide 26 (22-32) mmol/L Anion Gap 4 (2-11) mmol/L BUN 24 (6-24) mg/dL Creatinine 0.77 (0.67-1.17) mg/dL Est GFR ( Amer) 128.4 (>60) Est GFR (Non-Af Amer) 99.9 (>60) BUN/Creatinine Ratio 31.2 H (8-20) Glucose 101 H (70-100) mg/dL Lactic Acid (0.5-2.0) mmol/L Calcium 9.2 (8.6-10.3) mg/dL Magnesium 1.8 L (1.9-2.7) mg/dL Total Bilirubin 0.30 (0.2-1.0) mg/dL AST 22 (13-39) U/L ALT 19 (7-52) U/L Alkaline Phosphatase 99 (34-104) U/L Troponin I 0.02 (<0.04) ng/mL Total Protein 6.8 (6.4-8.9) g/dL Albumin 3.6 (3.2-5.2) g/dL Globulin 3.2 (2-4) g/dL Albumin/Globulin Ratio 1.1 (1-3) 03/01/17 Range/Units 08:48 WBC (3.5-10.8) 10^3/ul RBC (4.0-5.4) 10^6/ul Hgb (14.0-18.0) g/dl Hct (42-52) % MCV (80-94) fL MCH (27-31) pg MCHC (31-36) g/dl RDW (10.5-15) % Plt Count (150-450) 10^3/ul MPV (7.4-10.4) um3 Neut % (Auto) (38-83) % Lymph % (Auto) (25-47) % [place] % (Auto) (1-9) % Eos % (Auto) (0-6) % Baso % (Auto) (0-2) % Absolute Neuts (auto) (1.5-7.7) 10^3/ul Absolute Lymphs (auto) (1.0-4.8) 10^3/ul Absolute Monos (auto) (0-0.8) 10^3/ul Absolute Eos (auto) (0-0.6) 10^3/ul Absolute Basos (auto) (0-0.2) 10^3/ul Absolute Nucleated RBC 10^3/ul Nucleated RBC % INR (Anticoag Therapy) (0.89-1.11) Sodium (133-145) mmol/L Potassium (3.5-5.0) mmol/L Chloride (101-111) mmol/L Carbon Dioxide (22-32) mmol/L Anion Gap (2-11) mmol/L BUN (6-24) mg/dL Creatinine (0.67-1.17) mg/dL Est GFR ( Amer) (>60) Est GFR (Non-Af Amer) (>60) BUN/Creatinine Ratio (8-20) Glucose (70-100) mg/dL Lactic Acid 0.7 (0.5-2.0) mmol/L Calcium (8.6-10.3) mg/dL Magnesium (1.9-2.7) mg/dL Total Bilirubin (0.2-1.0) mg/dL AST (13-39) U/L ALT (7-52) U/L Alkaline Phosphatase (34-104) U/L Troponin I (<0.04) ng/mL Total Protein (6.4-8.9) g/dL Albumin (3.2-5.2) g/dL Globulin (2-4) g/dL Albumin/Globulin Ratio (1-3) Diagnostic Imaging: CTA chest: New right lower lobe infiltrate. Unchanged left upper lobe infiltrate. Several small pulmonary nodules, recommend follow up in 4 months. Assess/Plan/Problems-Billing Assessment: Mr. Evans is a 71 yo male with a PMH of COPD, fungal pneumonia followed by Dr. Means and Dr. Israel, CAD, ischemic cardiomyopathy, GI bleed from duodenal ulcer 12/2016, and afib who was admitted on 03/01/17 with SOB with suspected new RLL pneumonia and COPD. - Patient Problems (1) Pneumonia Comment: - Much improved since admission. Currently requires 2L NC which he is planned to use at home, but he has not started yet. Pt afebrile without leukocytosis. - CTA chest shows right lower lobe pneumonia. - Appreciate ID consult. Continue zosyn and azithromycin for now. - Voriconazole started by ID on 12/12 for aspergillus pneumonia. (2) COPD exacerbation Comment: - Much improved since admission. Currently requires 2L NC. - Continue dulera, prednisone, duonebs, O2. (3) Atrial fibrillation Comment: - Paroxysmal. - Continue metoprolol. Not anticoagulated outpatient with history of GI bleed from duodenal ulcer. (4) HLD (hyperlipidemia) Comment: - Total cholesterol 209. - Continue atorvastatin. (5) HTN (hypertension) Comment: - BP well controlled. - Continue furosemide, lisinopril, metoprolol, and amlodipine. (6) DVT prophylaxis Comment: - Hep Sq. Status and Disposition: Inpatient with expected LOS > 2 days. Anticipate discharge to home when medically stable.
[2017-03-02] MEDS ORDERED: VORICONAZOLE 200 MG PO SCH (09:00)
[2017-03-02] MEDS: Furosemide TAB* 20 MG PO SCH ×2 (09:25→19:50)
[2017-03-02] MEDS: Montelukast Sodium TAB* 10 MG PO SCH (09:25)
[2017-03-02] MEDS: Metoprolol Succinate XL TAB* 25 MG PO SCH ×2 (09:26→19:50)
[2017-03-02] MEDS: Aspirin EC Low Dose* 81 MG TAB.EC PO SCH (09:26)
[2017-03-02] MEDS: amLODIPine TAB* 5 MG PO SCH (09:26)
[2017-03-02] MEDS: Lisinopril TAB* 10 MG PO SCH (09:27)
[2017-03-02] MEDS: guaiFENesin ER TAB 600 MG PO SCH ×2 (09:28→19:50)
[2017-03-02] MEDS: Nystatin SUSPENSION* 100000 UNITS/ML 5 ML UDC SWISH SWAL SCH ×2 (09:28→19:51)
[2017-03-02] MEDS: predniSONE TAB* 50 MG PO SCH (09:28)
[2017-03-02] MEDS: Potassium Chlor TAB* 20 MEQ TAB.ER PO SCH (09:28)
[2017-03-02] MEDS: VORICONAZOLE 200 MG PO SCH ×2 (09:38→19:51)
--- NOTE | 2017-03-02 12:40 | CONS ---
CONSULTATION REPORT: DATE OF CONSULT: 03/02/17 REQUESTING PROVIDER: Jaja Dawkins NP CONSULTING SERVICE: Infectious Disease. REASON FOR CONSULTATION: Pneumonia. IMPRESSION: 1. Progressive cough, dyspnea, chest pain, and new right lower lobe infiltrate consistent with pneumonia, community acquired including the usual organisms, bacterial, atypical, viral; improving on current therapy. 2. Chronic obstructive pulmonary disease exacerbation. 3. 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 4. Recurrent pneumonia due to chronic obstructive pulmonary disease and corticosteroid use, question other immunodeficiency. 5. Acute hypoxemic respiratory failure present on admission. RECOMMENDATION: 1. Continue Zosyn and azithromycin, we will recheck him tomorrow. If he continues to improve, may be I will change him to oral antibiotics, corticosteroids per the primary service. 2. We will add an SPEP and immunoglobulin levels. 3. Continue voriconazole, local [employer]. HISTORY OF PRESENT ILLNESS: This is a 71-year-old man with COPD, on voriconazole for invasive pulmonary aspergillosis, admitted with 2 to 3 days of worsening anterior and right-sided chest pain, was not worse with exertion, was worse with a deep breath. He also noticed worsening dyspnea on exertion which is new and worsening sputum production, no blood coming up. He had recently had a cardiac catheterization. His groin site has been bothering him. Because of worsening symptoms, he came to the ER yesterday, his white count was 9, he has been afebrile. His oxygen saturation was 88% on room air. He was started on supplemental oxygen. His oxygen saturation today is 98% on 2 L. His chest pain is resolved. He is eating okay. His breathing is better when he is up and walked around. He has not coughed anything up today. He has continued to take voriconazole, tolerating it well. PAST MEDICAL HISTORY: 1. COPD. 2. Invasive pulmonary aspergillosis. 3. Hyperlipidemia. 4. Hypertension. 5. Atrial fibrillation. 6. Coronary artery disease. 7. Prostate cancer. 8. Ischemic cardiomyopathy. 9. GI bleed, 2006 due to duodenal ulcer. 10. Status post prostatectomy. 11. Status post tonsillectomy. MEDICATIONS: 1. Tylenol. 2. Aspirin. 3. Lipitor. 4. Lasix. 5. Heparin subcutaneous injection. 6. Lisinopril. 7. Metoprolol. 8. Singulair. 9. Inhaled mometasone. 10. Omeprazole. 11. Zosyn 3.375 g IV every 8 hours by extended infusion. 12. Spiriva. 13. Voriconazole 200 mg by mouth twice daily. 14. Azithromycin 500 mg IV daily. 15. Amlodipine. 16. Prednisone 50 mg daily. ALLERGIES: SIMVASTATIN, LIPITOR, and ADHESIVE TAPE. FAMILY HISTORY: No tuberculosis or infections. SOCIAL HISTORY: Lives in [place]. 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 Past smoker. PHYSICAL EXAM: Vital Signs: Temperature 36, heart rate 70, respiratory rate 18 , blood pressure 120/57, and O2 sat 98% on 2 L. General: He is awake, not in distress. Neurologic: He is oriented x3, follows all commands. HEENT: There is no conjunctival hemorrhage. Oropharynx without lesions. Neck: Neck is supple without nuchal rigidity. Lymph Nodes: There is no cervical, supraclavicular, axillary, or epitrochlear lymphadenopathy. Heart: Regular rate and rhythm without murmurs, rubs, or gallops. Lungs: There are distant breath sounds throughout with no wheezes, rales, or rhonchi. Abdomen: Soft, nontender, and nondistended. Skin: There is no rash or splinter hemorrhages. Musculoskeletal: No spinal tenderness to palpation. No joint synovitis. DIAGNOSTIC STUDIES/LAB DATA: White blood cell count 5, hemoglobin 11, platelets 443. Creatinine is 0.2. Troponin 0.01. Please see impression and recommendations outlined above. Thank you for asking me to see Mr. Celis in consultation. [id number]/[facility] #: [id number] [facility]ENTERMainor
[2017-03-02] MEDS: Azithromycin IV(*) 500 MG in NS 0.9% 250 ML* 250 ML IVPB SCH (15:52)
[2017-03-02] MEDS: Atorvastatin* 20 MG TAB PO SCH (18:21)
[2017-03-03] MEDS: Albuterol 2.5 MG/3 ML NEB.SOL* (0.083%) INH SCH ×3 (01:05→14:05)
[2017-03-03] MEDS: ZOSYN 3.375 GM Q8H per EXTENDED INFUSION IVPB SCH ×4 (02:51→11:08)
[2017-03-03] MEDS: Heparin VIAL(*) 5000 UNITS/ML VIAL (FIVE THOUSAND) SUBCUT SCH ×2 (04:53→13:08)
[2017-03-03] MEDS: Omeprazole CAP* 20 MG PO SCH ×2 (07:14→16:57)
[2017-03-03] MEDS: Tiotropium CAP.INH* CAP.INH/18 MCG INH SCH (07:50)
[2017-03-03] MEDS: Mometasone/Formoter 200/5 MDI INH SCH (07:50)
[2017-03-03] MEDS: guaiFENesin ER TAB 600 MG PO SCH (08:29)
[2017-03-03] MEDS: Montelukast Sodium TAB* 10 MG PO SCH (08:29)
[2017-03-03] MEDS: predniSONE TAB* 50 MG PO SCH (08:29)
[2017-03-03] MEDS: Furosemide TAB* 20 MG PO SCH (08:29)
[2017-03-03] MEDS: amLODIPine TAB* 5 MG PO SCH (08:29)
[2017-03-03] MEDS: Aspirin EC Low Dose* 81 MG TAB.EC PO SCH (08:29)
[2017-03-03] MEDS: Metoprolol Succinate XL TAB* 25 MG PO SCH (08:29)
[2017-03-03] MEDS: Potassium Chlor TAB* 20 MEQ TAB.ER PO SCH (08:30)
[2017-03-03] MEDS: Nystatin SUSPENSION* 100000 UNITS/ML 5 ML UDC SWISH SWAL SCH (08:30)
[2017-03-03] MEDS: Lisinopril TAB* 10 MG PO SCH (08:30)
[2017-03-03] MEDS: VORICONAZOLE 200 MG PO SCH (08:31)
[2017-03-03 16:02] VITALS: BP 112/49
[2017-03-03] MEDS: Azithromycin IV(*) 500 MG in NS 0.9% 250 ML* 250 ML IVPB SCH (16:14)
[2017-03-03] MEDS: Atorvastatin* 20 MG TAB PO SCH (16:57)
[2017-03-03 17:38] LABS: Albumin 2.7 g/dL (3.4-4.7); Gamma Globulin 0.7 g/dL (0.6-1.6); Total Protein(PEP) 6.3 g/dL (6.3 - 7.9)
--- NOTE | 2017-03-04 15:29 | DS ---
CC: Dr. Garcia * [facility] MEDICINE DISCHARGE SUMMARY: DATE OF ADMISSION: 03/01/17 DATE OF DISCHARGE: 03/03/17 PRIMARY CARE PHYSICIAN: Dr. Garcia. ATTENDING PHYSICIAN: Luis Asencio MD *(dictation provided by Jaja Dawkins NP ). PRIMARY DIAGNOSES: 1. Chronic obstructive pulmonary disease exacerbation. 2. Community-acquired pneumonia. SECONDARY DIAGNOSES: 1. Chronic obstructive pulmonary disease. 2. Invasive pulmonary aspergillosis. 3. Hyperlipidemia. 4. Hypertension. 5. Paroxysmal atrial fibrillation. 6. Coronary artery disease. 7. Ischemic cardiomyopathy. 8. Prostate cancer. 9. History of GI bleed in December 2006 caused by duodenal ulcer. PAST SURGICAL HISTORY: 1. Status post prostatectomy in 2002. 2. Status post tonsillectomy. MEDICATIONS: At the time of discharge are: 1. Augmentin 875 mg p.o. b.i.d. x10 days. 2. Prednisone 10 mg via short taper. There are no other medication changes. 3. He will continue on his Combivent inhaler p.r.n. 4. Albuterol nebulizer p.r.n. 5. Albuterol metered dose inhaler p.r.n. 6. Aspirin 81 mg p.o. daily. 7. Atorvastatin 20 mg p.o. q.p.m. 8. Symbicort 160/4.5 two puffs inhaled p.o. b.i.d. 9. Furosemide 20 mg p.o. b.i.d. 10. Lisinopril 10 mg p.o. daily. 11. Metoprolol succinate 25 mg p.o. b.i.d. 12. Montelukast 10 mg p.o. daily. 13. Nystatin swish and swallow b.i.d. 14. Omeprazole 20 mg p.o. b.i.d. 15. Potassium chloride 20 mEq p.o. daily. 16. Tiotropium 1 cap inhaled daily. 17. Voriconazole 200 mg p.o. q.12 hours. 18. Amlodipine 10 mg p.o. daily. 19. Guaifenesin ER 600 mg p.o. b.i.d. HOSPITAL COURSE: Mr. Celis is a 71-year-old male with past medical history of invasive aspergillosis pneumonia currently on treatment under the direction of Dr. Means as well as chronic COPD who presented to the hospital on with concern for shortness of breath. Please see the dictated H and P from Carol Domingo NP, for complete details. In brief, the patient reported worsening dyspnea over the past week, especially with exertion as well as cough. In the emergency room, he had a chest x-ray which showed concern for a new small left basilar infiltrate that was improved. He also had a CTA of the chest, which was read as follows; "no evidence for pulmonary embolism. New right lower lobe infiltrate most consistent with pneumonia. Left upper lobe infiltrate unchanged. Small pulmonary nodules in the left upper lobe as noted on the prior study. Recommend a followup noncontrast CT of the chest in 4 months ' time. Multiple dorsal vertebral body compression fractures, unchanged." The patient had a normal white blood cell count. He was afebrile. Mr. Celis was admitted to the hospital. He was treated with Zosyn and azithromycin for the pneumonia and was also started on prednisone. By the following day, the patient was feeling much better. He was seen in consultation by Dr. Means from Infectious Diseases who suspected that the patient's primary issue was likely a COPD exacerbation since he responded so well and was back to baseline so quickly. He did recommend that the patient be discharged to home on Augmentin to complete a 10-day course and that he follow up closely with his primary care physician, Dr. Garcia and with himself. Mr. Celis is doing well. He is on room air and sometimes is on 2 L nasal cannula and he will be having that delivered to his home as well. This predates the hospitalization and had been arranged by Dr. Israel immediately prior to his admission on 03/01/17. DISPOSITION: Home. DIET: Regular. ACTIVITY: As tolerated. FOLLOW-UP PLANS: 1. Please follow up with Dr. Garcia per routine after this hospitalization. 2. Please follow up with Dr. Means in the next 1 to 2 weeks to ensure good resolution of dyspnea and for continued treatment of aspergillus. TIME SPENT: Approximately 60 minutes were spent in the discharge of this patient, more than half that time was spent with him at the bedside reviewing the events leading up this hospitalization, performing the physical examination and reviewing the plan of care. JAJA DAWKINS, ENGINE BUILDER [id number]/[facility] #: [id number] [facility]ERYMainor
== END 2017-03-03 17:40 | disposition home or self-care (01) | DRG 190 ==
LOC: ED 08:19 → MEDTELE 11:54 → OBSVTOIN 03-02 09:30
PROVIDERS: ADMIT Internal Medicine; ATTEND Internal Medicine
DX: J44.1 Chronic obstructive pulmonary disease with (acute) exacerbation (principal); J18.8 Other pneumonia, unspecified organism; B44.0 Invasive pulmonary aspergillosis; I48.0 Paroxysmal atrial fibrillation; B37.0 Candidal stomatitis; I11.9 Hypertensive heart disease without heart failure; I25.5 Ischemic cardiomyopathy; I25.10 Atherosclerotic heart disease of native coronary artery without angina pectoris; E78.5 Hyperlipidemia, unspecified; Z85.46 Personal history of malignant neoplasm of prostate; Z88.8 Allergy status to other drugs, medicaments and biological substances; Z91.048 Other nonmedicinal substance allergy status; Z82.49 Family history of ischemic heart disease and other diseases of the circulatory system; Z82.3 Family history of stroke; Z80.42 Family history of malignant neoplasm of prostate; Z87.891 Personal history of nicotine dependence; Z79.82 Long term (current) use of aspirin; Z79.1 Long term (current) use of non-steroidal anti-inflammatories (NSAID); Z79.52 Long term (current) use of systemic steroids; Z79.899 Other long term (current) drug therapy
CPT/HCPCS: 36415; 71010; 71275; 80048; 80053; 83605; 83735; 84155; 84165; 84484; 85025; 85610; 93005; 94640; 94760; A9270-GY; G0378; J0456; J1644; J2543; J2930; J7512; Q9967

== ENCOUNTER 2017-03-31 15:23 | Inpatient (IN) | payer MEDICARE ==
[2017-03-31] MEDS ORDERED: Albuterol/Ipratropium NEB.SOL* Albuterol 2.5 MG/Ipratropium 0.5 MG 3 ML INH ONE (15:57)
[2017-03-31] MEDS: NS 0.9% 1000 ML* 1,000 ML IV SCH ×2 (16:20→22:04)
[2017-03-31 16:29] LABS: Hematocrit 38 % (42-52); Hemoglobin 12.2 g/dl (14.0-18.0); Mean Corpuscular HGB Conc 32 g/dl (31-36); Mean Corpuscular Hemoglobin 29 pg (27-31); Mean Corpuscular Volume 89 fL (80-94); Mean Platelet Volume 7 um3 (7.4-10.4); Red Blood Count 4.24 10^6/ul (4.0-5.4); Red Cell Distribution Width 19 % (10.5-15); White Blood Count 10.2 10^3/ul (3.5-10.8)
[2017-03-31 16:42] LABS: Troponin I 0.02 ng/mL (<0.04)
[2017-03-31 16:50] LABS: ALT 17 U/L (7-52); AST 15 U/L (13-39); Albumin 3.7 g/dL (3.2-5.2); Alkaline Phosphatase 111 U/L (34-104); Anion Gap 7 mmol/L (2-11); BUN/Creatinine Ratio 39.4 (8-20); Blood Urea Nitrogen 39 mg/dL (6-24); C Reactive Protein 46.36 mg/L (< 5.00); CO2 Carbon Dioxide 27 mmol/L (22-32); Chloride 99 mmol/L (101-111); Creatine Kinase 30 U/L (10-223); EGFR African American 96.1 (>60); EGFR Non-African American 74.7 (>60); Globulin 3.3 g/dL (2-4); Glucose 133 mg/dL (70-100); Lipase < 10 U/L (11.0-82.0); Magnesium 2.4 mg/dL (1.9-2.7); Potassium 5.3 mmol/L (3.5-5.0); Sodium 133 mmol/L (133-145)
[2017-03-31] MEDS ORDERED: Iohexol 350* (CONTRAST) 500 ML MDV IV ONE (17:03)
--- NOTE | 2017-03-31 17:03 | ED ---
Idris Mckeon Benjamin, scribed for Eran Ibarra MD on 03/31/17 at 1606 . Lower Extremity - HPI Summary HPI Summary: 71yo male c/o SOB and leg weakness. Pt was dxed with fungal infection 3 months ago which pt was put on antifungal meds. Pt then started having SOB, back pain, and back spasms for 2 weeks and reports bilateral leg weakness with foot drop and SOB for a few days now. Pt was also put on pain meds and muscle relaxer for his back pain but didnt help. Pt also reports tightness in chest and has hx of chronic cough, COPD, and afib. Pt fell on Thursday due to this leg weakness. Pt was recently put on 2L oxygen at home. Denies any trauma. 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 Of Injury: Unknown Onset of Pain: Days Severity Initially: Moderate Severity Currently: Moderate Pain Intensity: 9 Pain Scale Used: 0-10 Numeric Timing: Constant Character Of Pain: Spasmodic Associated Signs And Symptoms: Positive: Weakness - leg Aggravating Factor(s): Ambulation - Allergies/Home Medications Allergies/Adverse Reactions: Allergies Allergy/AdvReac Type Severity Reaction Status Date / Time Adhesive Tape [Plastic Tape] Allergy Intermediate Bleeding Verified 03/31/17 16: 39 Simvastatin Allergy See Comment Verified 03/31/17 16:39 Home Medications: Home Medications Budesonide/Formote 160/4.5(NF) [Symbicort 160/4.5 (NF)] 2 puff INH BID 03/31/17 [History Confirmed 03/31/17] Cyclobenzaprine TAB* [Flexeril 10 MG TAB*] 10 mg PO TID PRN 03/31/17 [History Confirmed 03/31/17] Furosemide TAB* [Lasix TAB*] 20 mg PO BID 03/31/17 [History Confirmed 03/31/17] Levalbuterol 1.25MG/0.5ML NEB* [Xopenex 1.25 MG/0.5 ML NEB.MILAGRO*] 1.25 mg INH QID PRN 03/31/17 [History Confirmed 03/31/17] Lisinopril TAB* [Prinivil TAB*] 10 mg PO DAILY 03/31/17 [History Confirmed 03/31] Montelukast Sodium TAB* [Singulair TAB*] 10 mg PO DAILY 03/31/17 [History Confirmed 03/31/17] Voriconazole (NF) [Vfend (NF)] 200 mg PO BID 03/31/17 [History Confirmed ] PMH/Surg Hx/FS Hx/Imm Hx Endocrine/Hematology History: Denies: Hx Diabetes, Hx Thyroid Disease Cardiovascular History: Reports: Hx Hypercholesterolemia, Hx Hypertension, Other Cardiovascular Problems/Disorders - Afib Denies: Hx Pacemaker/ICD Respiratory History: Reports: Hx Asthma, Hx Chronic Obstructive Pulmonary Disease (COPD), Hx Pneumonia, Other Respiratory Problems/Disorders - COPD GI History: Denies: Hx Ulcer History: Denies: Hx Dialysis Musculoskeletal History: Reports: Hx Orthopedic Injury - Right shoulder, & broken left foot (many years ago) Denies: Hx Back Problems Sensory History: Reports: Hx Contacts or Glasses Denies: Hx Hearing Aid, Hx Hearing Problem Opthamlomology History: Reports: Hx Contacts or Glasses Neurological History: Denies: Hx Dementia, Hx Seizures Psychiatric History: Denies: Hx Panic Disorder - Cancer History Cancer Type, 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 - Surgical History Surgery Procedure, Year, and Place: PROSTATECTOMY,Tonsilectomy Infectious Disease History: No Infectious Disease History: Denies: Hx Clostridium Difficile, Hx Hepatitis, Hx Human Immunodeficiency Virus (HIV), Hx of Known/Suspected MRSA, Hx Shingles, Hx Tuberculosis, Hx Known/ Suspected VRE, Hx Known/Suspected VRSA, History Other Infectious Disease, Traveled Outside the [place] in Last 30 Days - Family History Known Family History: Positive: Cardiac Disease, Hypertension, Respiratory Disease - COPD - Social History Lives: With Family Alcohol Use: None Hx Substance Use: No Substance Use Type: Reports: None Hx Tobacco Use: No Smoking Status (MU): Former Smoker Type: Cigarettes Amount Used/How Often: 30 +years Review of Systems Constitutional: Negative Eyes: Negative ENT: Negative Cardiovascular: Negative Positive: Shortness Of Breath, Cough - chronic Gastrointestinal: Negative Genitourinary: Negative Positive: Myalgia - back pain Skin: Negative Positive: Weakness - legs Psychological: Normal All Other Systems Reviewed And Are Negative: Yes Physical Exam Triage Information Reviewed: Yes Vital Signs On Initial Exam: Initial Vitals Temp Pulse Resp BP Pulse Ox 98.7 F 94 24 139/66 88 03/31/17 15:24 03/31/17 15:24 03/31/17 15:24 03/31/17 15:24 03/31/17 15:24 Vital Signs Reviewed: Yes Appearance: Positive: Well-Appearing, No Pain Distress, Well-Nourished Skin: Positive: Warm, Skin Color Reflects Adequate Perfusion, Dry Head/Face: Positive: Normal Head/Face Inspection Eyes: Positive: EOMI, KEVEN ENT: Positive: Normal ENT inspection Neck: Positive: Supple, Nontender Respiratory/Lung Sounds: Positive: Clear to Auscultation, Breath Sounds Present , Other - loose cough Cardiovascular: Positive: RRR Abdomen Description: Positive: Nontender, Soft Bowel Sounds: Positive: Present Musculoskeletal: Negative: Strength/ROM Intact - Decreased strength in bilateral dorsiflexions and have foot drops. Right weaker than Left., Edema Left , Edema Right Neurological: Positive: Normal, Sensory/Motor Intact, Alert, Oriented to Person Place, Time Psychiatric: Positive: Affect/Mood Appropriate - Alan Coma Scale Coma Scale Total: 15 Diagnostics - Vital Signs Vital Signs Temp Pulse Resp BP Pulse Ox 03/31/17 15:54 98.7 F 84 22 153/67 96 03/31/17 15:24 98.7 F 94 24 139/66 88 - Laboratory Lab Results: Lab Results 03/31/17 03/31/17 03/31/17 Range/Units 16:15 16:15 16:15 WBC 10.2 (3.5-10.8) 10^3/ul RBC 4.24 (4.0-5.4) 10^6/ul Hgb 12.2 L (14.0-18.0) g/dl Hct 38 L (42-52) % MCV 89 (80-94) fL MCH 29 (27-31) pg MCHC 32 (31-36) g/dl RDW 19 H (10.5-15) % Plt Count 446 (150-450) 10^3/ul MPV 7 L (7.4-10.4) um3 Neut % (Auto) 90.6 H (38-83) % Lymph % (Auto) 2.3 L (25-47) % [place] % (Auto) 7.1 (1-9) % Eos % (Auto) 0 (0-6) % Baso % (Auto) 0 (0-2) % Absolute Neuts (auto) 9.2 H (1.5-7.7) 10^3/ul Absolute Lymphs (auto) 0.2 L (1.0-4.8) 10^3/ul Absolute Monos (auto) 0.7 (0-0.8) 10^3/ul Absolute Eos (auto) 0 (0-0.6) 10^3/ul Absolute Basos (auto) 0 (0-0.2) 10^3/ul Absolute Nucleated RBC 0.01 10^3/ul Nucleated RBC % 0.1 INR (Anticoag Therapy) 0.82 L (0.89-1.11) APTT 26.1 (26.0-36.3) seconds D-Dimer, Quantitative 690 H (Less Than 230) ng/mL Sodium 133 (133-145) mmol/L Potassium 5.3 H (3.5-5.0) mmol/L Chloride 99 L (101-111) mmol/L Carbon Dioxide 27 (22-32) mmol/L Anion Gap 7 (2-11) mmol/L BUN 39 H (6-24) mg/dL Creatinine 0.99 (0.67-1.17) mg/dL Est GFR ( Amer) 96.1 (>60) Est GFR (Non-Af Amer) 74.7 (>60) BUN/Creatinine Ratio 39.4 H (8-20) Glucose 133 H (70-100) mg/dL Lactic Acid (0.5-2.0) mmol/L Calcium 9.0 (8.6-10.3) mg/dL Magnesium 2.4 (1.9-2.7) mg/dL Total Bilirubin 0.30 (0.2-1.0) mg/dL AST 15 (13-39) U/L ALT 17 (7-52) U/L Alkaline Phosphatase 111 H (34-104) U/L Total Creatine Kinase 30 (10-223) U/L CK-MB (CK-2) 3.6 (0.6-6.3) ng/mL Troponin I 0.02 (<0.04) ng/mL C-Reactive Protein 46.36 H (< 5.00) mg/L B-Natriuretic Peptide ( - 100) pg/mL Total Protein 7.0 (6.4-8.9) g/dL Albumin 3.7 (3.2-5.2) g/dL Globulin 3.3 (2-4) g/dL Albumin/Globulin Ratio 1.1 (1-3) Lipase < 10 L (11.0-82.0) U/L TSH Pending 03/31/17 03/31/17 Range/Units 16:15 16:15 WBC (3.5-10.8) 10^3/ul RBC (4.0-5.4) 10^6/ul Hgb (14.0-18.0) g/dl Hct (42-52) % MCV (80-94) fL MCH (27-31) pg MCHC (31-36) g/dl RDW (10.5-15) % Plt Count (150-450) 10^3/ul MPV (7.4-10.4) um3 Neut % (Auto) (38-83) % Lymph % (Auto) (25-47) % [place] % (Auto) (1-9) % Eos % (Auto) (0-6) % Baso % (Auto) (0-2) % Absolute Neuts (auto) (1.5-7.7) 10^3/ul Absolute Lymphs (auto) (1.0-4.8) 10^3/ul Absolute Monos (auto) (0-0.8) 10^3/ul Absolute Eos (auto) (0-0.6) 10^3/ul Absolute Basos (auto) (0-0.2) 10^3/ul Absolute Nucleated RBC 10^3/ul Nucleated RBC % INR (Anticoag Therapy) (0.89-1.11) APTT (26.0-36.3) seconds D-Dimer, Quantitative (Less Than 230) ng/mL Sodium (133-145) mmol/L Potassium (3.5-5.0) mmol/L Chloride (101-111) mmol/L Carbon Dioxide (22-32) mmol/L Anion Gap (2-11) mmol/L BUN (6-24) mg/dL Creatinine (0.67-1.17) mg/dL Est GFR ( Amer) (>60) Est GFR (Non-Af Amer) (>60) BUN/Creatinine Ratio (8-20) Glucose (70-100) mg/dL Lactic Acid 1.4 (0.5-2.0) mmol/L Calcium (8.6-10.3) mg/dL Magnesium (1.9-2.7) mg/dL Total Bilirubin (0.2-1.0) mg/dL AST (13-39) U/L ALT (7-52) U/L Alkaline Phosphatase (34-104) U/L Total Creatine Kinase (10-223) U/L CK-MB (CK-2) (0.6-6.3) ng/mL Troponin I (<0.04) ng/mL C-Reactive Protein (< 5.00) mg/L B-Natriuretic Peptide 77 ( - 100) pg/mL Total Protein (6.4-8.9) g/dL Albumin (3.2-5.2) g/dL Globulin (2-4) g/dL Albumin/Globulin Ratio (1-3) Lipase (11.0-82.0) U/L TSH Result Diagrams: 03/31/17 16:15 03/31/17 16:15 Lab Statement: Any lab studies that have been ordered have been reviewed, and results considered in the medical decision making process. - EKG 1635. Cardiac Rate: NL - bpm EKG Rhythm: Sinus Rhythm ST Segment: Normal Ectopy: None Lower Extremity Course/Dx - Course Course Of Treatment: Discussed with Dr. Wilson (Hospitalist) @5672. NO CRITICAL CARE TIME. ADMIT HOSPITALIST STABLE. - Diagnoses Provider Diagnoses: Dyspnea, Weakness, Foot drop Discharge - Discharge Plan Condition: Stable Disposition: ADMITTED TO [facility] Referrals: Jelly Callahan MD [Primary Care Provider] - The documentation as recorded by the Idris davis Benjamin accurately reflects the service I personally performed and the decisions made by me, Eran Ibarra MD.
[2017-03-31 17:42] LABS: TSH (Thyroid Stimulating Horm) 0.37 mcIU/mL (0.34-5.60)
--- NOTE | 2017-03-31 18:00 | RAD ---
INDICATION: Shortness of breath. Positive d-dimer. On oxygen at home. COMPARISON: March 01, 2017 CT pulmonary angiogram. TECHNIQUE: Multidetector CT images were obtained from the lung apices to the upper abdomen with 67 mL Omnipaque 350 IV contrast. Pulmonary angiogram protocol. Multiplanar reformation including with maximum intensity projection. REPORT: Rarefaction of interstitial markings throughout consistent with emphysema. Subsegmental airspace consolidation at the inferior lingula improved compared with the March 01, 2017 exam. No new pulmonary consolidation or suspicious pulmonary lesions evident. Mild RIGHT basilar dependent atelectasis. Negative for pleural effusions or pneumothorax. Negative for thoracic lymphadenopathy, cardiomegaly, pericardial effusion. Normal diameter thoracic aorta. Negative for aortic dissection. Motion artifact mildly degrades the CT pulmonary angiogram. Filling defect noted within the apical posterior segmental and subsegmental pulmonary artery branches branches of the LEFT upper lobe new compared with the prior exam. Reference images 72-77 of 248. No additional pulmonary emboli visualized. Unremarkable Limited images through the upper abdomen. Multiple compression fractures of the thoracic and visualized proximal lumbar spine with progression at T4 and new anterior column superior endplate compression fractures at L1 and L2 moderate and mild in severity respectively. Up to 4 mm dorsal bulging of the middle column at L1 without significant resulting central canal stenosis. No paravertebral hematoma evident. RIGHT posterior sixth, seventh, and eighth grossly nondisplaced rib fractures appear acute. LEFT fifth and sixth nondisplaced rib fractures appear acute. No suspicious focal osseous lesions evident. IMPRESSION: 1. Small burden of acute pulmonary embolism at the LEFT upper lobe. 2. Advanced emphysema. 3. Negative for thoracic lymphadenopathy. 4. Multiple compression fractures of the thoracic and visualized proximal lumbar spine with progression at T4 and new anterior column superior endplate compression fractures at L1 and L2 moderate and mild in severity respectively. Up to 4 mm dorsal bulging of the middle column at L1 without significant resulting central canal stenosis. No paravertebral hematoma evident. 5. Multiple bilateral rib fractures without significant displacement or pneumothorax. Results discussed with Dr. Llanos 03/31/2017 5:51 PM EDT
[2017-03-31] MEDS ORDERED: Acetaminophen TAB* 325 MG PO PRN (18:18)
[2017-03-31] MEDS ORDERED: Ondansetron INJ* 2 MG/ML VIAL IV PRN (18:18)
[2017-03-31] MEDS ORDERED: Albuterol/Ipratropium NEB.SOL* Albuterol 2.5 MG/Ipratropium 0.5 MG 3 ML INH PRN (18:24)
[2017-03-31] MEDS ORDERED: Heparin DRIP 25,000 UNITS(*) 25,000 UNITS/500 ML BAG IVPB SCH (18:30)
[2017-03-31] MEDS ORDERED: traMADol TAB* 50 MG PO ONE (18:34)
[2017-03-31] MEDS ORDERED: Cyclobenzaprine TAB* 10 MG PO ONE (18:34)
[2017-03-31] MEDS ORDERED: Heparin VIAL(*) 5000 UNITS/ML VIAL (FIVE THOUSAND) IV SCH (19:00)
--- NOTE | 2017-03-31 19:42 | RAD ---
Indication: New bilateral foot drop with RIGHT greater than LEFT weakness. Low back pain. Compression fractures on chest CT of the same date. Comparison: Chest CT of the same date and October 05, 2009 lumbar sacral spine radiographs. Technique: [employer] 1.5 Maria Isabel [id number] with GEM suite. Noncontrast MRI lumbar sacral spine. Report: Unremarkable conus medullaris and cauda equina. There is bone marrow edema at L1 flanking the superior endplate corresponding with acute or subacute compression fracture. More subtle acute or subacute compression fracture at the superior endplate of L2. Mild dorsal bulging of the middle column at L1 without significant resulting central canal stenosis. Mild chronic T12 compression fracture with minimal dorsal bulging of the middle column at the superior endplate without resulting significant central canal stenosis. No paravertebral hematoma evident. Negative for spondylolysis at any level. Negative for significant spondylolisthesis. T12-L1: Negative for significant central canal or foraminal stenosis. L1-L2: Mild degenerative spondylosis. Negative for acquired spinal stenosis. L2-L3: Mild dorsal disc bulge and facet joint osteoarthritis without significant resulting spinal stenosis. L3-L4: Mild dorsal disc bulge and facet joint osteoarthritis without significant resulting spinal stenosis. L4-L5: Advanced disc space narrowing. Mild dorsal disc bulge and facet joint osteoarthritis results in mild acquired central canal stenosis and mild RIGHT lateral recess stenosis. Mild resulting RIGHT foraminal stenosis. L5-S1: Moderately severe disc space narrowing. Mild dorsal disc bulge and facet joint osteoarthritis. Negative for significant central canal or lateral recess stenosis. Resulting mild to moderate RIGHT and mild LEFT foraminal stenosis. IMPRESSION: 1. Acute or subacute L1 and L2 vertebral body fractures involving the superior endplate. At L1 there is mild associated dorsal bulging of the middle column without significant resulting central canal stenosis. 2. Multilevel degenerative spondylosis and facet joint osteoarthritis with resulting predominant mild acquired central canal, lateral recess, and foraminal stenosis as described level by level in the body of the report.
[2017-03-31 20:01] LABS: Urine Bilirubin Negative (Negative); Urine Glucose Negative (Negative); Urine Nitrite Negative (Negative)
[2017-03-31] MEDS: Mometasone/Formoter 200/5 MDI INH SCH (20:59)
[2017-03-31] MEDS ORDERED: Budesonide/Formote 160/4.5(NF) MDI INH SCH (21:00)
[2017-03-31] MEDS ORDERED: VORICONAZOLE 50 MG PO SCH (21:00)
--- NOTE | 2017-03-31 21:04 | ED ---
Linda, Jas Steinberg, scribed for Eran Ibarra MD on 03/31/17 at 2048 . Progress - Progress Note Progress Note: Addendum for Dr. Ibarra's charts CTA Chest IMPRESSION: 1. Small burden of acute pulmonary embolism at the LEFT upper lobe. 2. Advanced emphysema. 3. Negative for thoracic lymphadenopathy. 4. Multiple compression fractures of the thoracic and visualized proximal lumbar spine with progression at T4 and new anterior column superior endplate compression fractures at L1 and L2 moderate and mild in severity respectively. Up to 4 mm dorsal bulging of the middle column at L1 without significant resulting central canal stenosis. No paravertebral hematoma evident. 5. Multiple bilateral rib fractures without significant displacement or pneumothorax. L spine MRI IMPRESSION: 1. Acute or subacute L1 and L2 vertebral body fractures involving the superior endplate. At L1 there is mild associated dorsal bulging of the middle column without significant resulting central canal stenosis. 2. Multilevel degenerative spondylosis and facet joint osteoarthritis with resulting predominant mild acquired central canal, lateral recess, and foraminal stenosis as described level by level in the body of the report. Course/Dx - Course Course Of Treatment: Discussed with Dr. Wilson (Hospitalist) @0122. NO CRITICAL CARE TIME. ADMIT HOSPITALIST STABLE. - Diagnoses Provider Diagnoses: Dyspnea, Weakness, Foot drop The documentation as recorded by the Idris davis Benjamin accurately reflects the service I personally performed and the decisions made by me, Eran Ibarra MD.
[2017-03-31] MEDS: guaiFENesin ER TAB 600 MG PO SCH (21:06)
[2017-03-31 21:47] LABS: BUN/Creatinine Ratio 43.2 (8-20); Calcium 8.3 mg/dL (8.6-10.3); EGFR African American 134.5 (>60); EGFR Non-African American 104.6 (>60); Potassium 4.6 mmol/L (3.5-5.0)
[2017-03-31] MEDS: VORICONAZOLE 200 MG PO SCH (22:06)
--- NOTE | 2017-03-31 23:21 | HP ---
CC: Dr. Garcia; Dr. Gonzalez; Dr. Israel; Dr. Means * ADMISSION HISTORY AND PHYSICAL: DATE OF ADMISSION: 03/31/17 PRIMARY CARE PROVIDER: Dr. Garcia. INFECTIOUS DISEASE SPECIALIST: Dr. Means. FOREIGN BROADCAST SPECIALIST: Dr. Israel. FEATHER SAWYER: Dr. Gonzalez. ADMITTING PROVIDER: [facility]. SUPERVISING PHYSICIAN: Luis Asencio MD * (dictated by SANTHOSH [facility].) CHIEF COMPLAINT: Shortness of breath, back pain and lower extremity weakness. 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 The patient was last hospitalized approximately 4weeks ago with complaints of shortness of breath and treated for COPD exacerbation. The patient states that surrounding that admission and for several days afterwards, he was having a significant amount of coughing and has had migratory chest pain and back pain. One day one area of his chest will provide discomfort, the next day it will be somewhere different. The pain is generally constant and worse with ambulation and deep inspiration. He was seen by his primary care provider with these complaints who prescribed Flexeril and tramadol for him. The patient states that this was mostly effective, but then last night his back pain became significantly worse and he was unable to get much sleep as a result of this. He had scheduled an appointment with his primary care provider for this afternoon to address his back pain, but then when he got up to go to the appointment he felt as if his legs were not working appropriately and came to the emergency department instead. Starting this afternoon, the patient complains of bilateral leg weakness, manifesting itself as what he is calling "foot drop." He states that he feels like his feet are just kind of floppy. He has not fallen or tripped, but had to be quite careful with how he is walking to avoid doing so. He feels that these symptoms are slightly worse on the right side rather than the left and has a numbness sensation in the first and second toes of both feet. He has had no history of similar symptoms. The patient reports that the majority of his back pain at this time is kind of lower thoracic and mostly concentrated on the right side. He denies any bowel or bladder incontinence or acute urinary retention. The patient states that he has not had any other acute illness since his last hospitalization and denies fever, chills or night sweats. He denies any abdominal pain, nausea, vomiting or diarrhea, but states that he has been quite fatigued. In regards to his dyspnea, he states that he was feeling better following his last discharge, but over the last several days, his dyspnea has become worse. He is relatively asymptomatic at rest, but with any exertion he feels extremely winded. He has been using 2 L of supplemental oxygen since his last admission 4 weeks ago. PAST MEDICAL HISTORY: 1. COPD with chronic respiratory failure, currently on 2 L via nasal cannula continuously. 2. Invasive pulmonary aspergillosis, on long-term voriconazole treatment, followed by Dr. Israel and Dr. Means. 3. Coronary artery disease. 4. Hypertension. 5. Hyperlipidemia. 6. Paroxysmal atrial fibrillation whose anticoagulation was discontinued for history of GI bleed in December. 7. Remote history of prostate cancer, status post prostatectomy. PAST SURGICAL HISTORY: 1. Tonsillectomy. 2. Prostatectomy. HOME MEDICATIONS: 1. Nebulized albuterol inhaled 4 times daily as needed for shortness of breath. 2. Albuterol inhaler 2 puffs inhaled 4 times daily as needed for shortness of breath. 3. Combivent inhaler 2 puffs inhaled 4 times daily as needed for shortness of breath. 4. Aspirin 81 mg p.o. daily. 5. Atorvastatin 20 mg p.o. daily. 6. Symbicort 2 puffs inhaled twice daily. 7. Flexeril 10 mg p.o. t.i.d. as needed for pain. 8. Tramadol 50 mg p.o. t.i.d. as needed for pain. 9. Lasix 20 mg p.o. b.i.d. 10. Xopenex 1.25 mg inhaled 4 times daily as needed for shortness of breath. 11. Lisinopril 10 mg p.o. daily. 12. Singulair 10 mg p.o. daily. 13. Omeprazole 20 mg p.o. twice daily. 14. Potassium chloride 20 mEq p.o. daily. 15. Spiriva 1 capsule inhaled daily. 16. Voriconazole 200 mg p.o. twice daily. 17. Amlodipine 10 mg p.o. daily. 18. Mucinex 600 mg p.o. twice daily. SOCIAL HISTORY: The patient has a [id number] smoking history, but quit nearly 20 years ago. Denies any regular alcohol consumption and lives at home with his . REVIEW OF SYSTEMS: As noted above in the HPI. All other systems reviewed and considered negative. PHYSICAL EXAMINATION GENERAL: This is a very pleasant 71-year-old gentleman who is accompanied by his who does not appear to be in any acute distress. VITAL SIGNS: Initial vitals, temperature 98.7 degrees Fahrenheit, pulse 94 beats per minute, respiratory rate 24, oxygen saturation 88% on room air, blood pressure 139/66 mmHg. HEENT: Head is normocephalic, atraumatic. Mucous membranes are mildly dry. NECK: Supple and free of lymphadenopathy. RESPIRATORY: Lungs are clear to auscultation. Slightly reduced breath sounds appreciated diffusely with no rhonchi or wheezing, but a few crackles present in the left lung base. CARDIOVASCULAR: Heart has a regular rate and rhythm without murmurs, rubs, or gallops. ABDOMEN: Soft and nontender to palpation. BACK: No obvious deformity and some tenderness to palpation in the lower thoracic and upper lumbar spine along the right paraspinal musculature. EXTREMITIES: The patient has trace to 1+ lower extremity edema at the ankles bilaterally, which he states is usual for him. NEURO: The patient has limited dorsiflexion bilaterally and specifically unable to dorsiflex the first toe on either foot against resistance, but is able to do so against gravity. Sensation is intact. DTRs are intact as well. Gait was not specifically assessed. LABORATORY EVALUATION: CBC shows white blood cell count of 10,200, hemoglobin of 12.2 g/dL, platelet count of 446,000. INR of 0.8, PTT of 26, D-dimer significantly elevated at 690. Comprehensive metabolic panel shows a sodium of 133 mmol/L, potassium of 5.3 mmol/L. Serum bicarb of 27, BUN 39, creatinine 0.99, random glucose of 133 mg/dL. Lactic acid normal at 1.4. Transaminases and total bilirubin within normal limits. Troponin negative at 0.02. CRP elevated at 46. TSH normal at 0.37. BNP normal at 77. IMAGING: EKG shows a normal sinus rhythm. CTA of the chest shows a small burden of acute pulmonary embolism in the left upper lobe as well as advanced emphysema. He has multiple compression fractures of the thoracic and proximal lumbar spine with progression at T4, new anterior column superior endplate compression fractures at L1 and L2 moderate and mild in severity respectively and up to 4 mm of dorsal bulging of the middle column at L1 without significant resulting central canal stenosis and no paravertebral hematoma present. He has multiple bilateral rib fractures without significant displacement or evidence of pneumothorax. ASSESSMENT AND PLAN: This is a pleasant 71-year-old gentleman with complicated medical history including invasive pulmonary aspergillosis, on long-term voriconazole treatment as well as chronic obstructive pulmonary disease, hypertension, hyperlipidemia, paroxysmal atrial fibrillation with recent GI bleed as well as coronary artery disease and past prostate malignancy who presents with complaints of shortness of breath, back pain and lower extremity weakness. 1. Pulmonary embolus - the patient has a small clot appreciated in the left upper lung field. The patient is likely more symptomatic than what would be expected by the clot burden due to the severity of his underlying chronic obstructive pulmonary disease. He does require anticoagulation for treatment, but this is of course of concern given his recent GI bleed. He did undergo repeat endoscopy with Dr. Wahl just a month ago, which showed that his prior ulcerations were well healed and it is not specifically reported that if needed , anticoagulation could be resumed. Because of his higher than usual risk of bleeding we will start him on a heparin drip that can easily be stopped to reverse, then monitor for sites of bleeding before initiating an alternate oral anticoagulant. 2. Multiple compression and rib fractures - this would certainly explain his back and chest pain that he has been experiencing likely secondary to his cough with suspected osteoporosis. The patient will need further followup with his primary care provider and may benefit from a bone scan to evaluate severity of osteoporosis. 3. Lower extremity weakness. The patient appears to have rather focal weakness manifesting itself as dorsiflexion along the level of L4-5. Symptoms are symmetric and bilateral without additional symptoms of cauda equina. An MRI of the lumbar spine has been ordered and is currently pending at this time. 4. Hyperkalemia - the patient received a liter fluids in the emergency department. We will plan to repeat a basic metabolic panel in a couple of hours. In the meantime, we will hold his potassium supplement and lisinopril. 5. Chronic obstructive pulmonary disease - with chronic respiratory failure - we will continue his usual 2 L of supplemental oxygen. No evidence of associated exacerbation. We will continue with usual inhaled medications. 6. Invasive pulmonary aspergillosis - this does not appear to be complicating his acute presentation. We will plan to continue his voriconazole. 7. Paroxysmal atrial fibrillation - the patient's anticoagulation had been interrupted for GI bleed, but he will be re-anticoagulated given his new pulmonary embolus. We will obtain Doppler of the lower extremities to evaluate for deep venous thrombosis. May have a primary pulmonary embolus due to the associated trauma that he has had in his chest from the excessive coughing, but this seems to be less likely. 8. Hypertension. 9. Hyperlipidemia. 10. Coronary artery disease. 11. DVT prophylaxis. The patient will be started on a heparin drip. 12. Code status: The patient is a full code. 13. Healthcare proxy is his . DISPOSITION: The patient is being admitted under inpatient status whose anticipated length of stay to be greater than 2 midnights. SANTHOSH [facility]TH [id number]/[facility] #: [id number] NIKKY
[2017-04-01] MEDS: oxyCODONE/Acetamin 5/325 MG* TAB PO PRN ×3 (01:25→19:20)
[2017-04-01 04:39] LABS: BUN/Creatinine Ratio 37.7 (8-20); Calcium 8.2 mg/dL (8.6-10.3); EGFR African American 128.4 (>60); EGFR Non-African American 99.9 (>60); Potassium 4.3 mmol/L (3.5-5.0)
[2017-04-01] MEDS: NS 0.9% 1000 ML* 1,000 ML IV SCH (05:36)
[2017-04-01] MEDS: traMADol TAB* 50 MG PO PRN (05:40)
[2017-04-01] MEDS: Cyclobenzaprine TAB* 10 MG PO PRN (05:40)
[2017-04-01 06:38] LABS: Hematocrit 33 % (42-52); Hemoglobin 10.4 g/dl (14.0-18.0); Mean Corpuscular HGB Conc 32 g/dl (31-36); Mean Corpuscular Hemoglobin 29 pg (27-31); Mean Corpuscular Volume 90 fL (80-94); Mean Platelet Volume 7 um3 (7.4-10.4); Red Blood Count 3.62 10^6/ul (4.0-5.4); Red Cell Distribution Width 19 % (10.5-15); White Blood Count 9.7 10^3/ul (3.5-10.8)
[2017-04-01] MEDS: guaiFENesin ER TAB 600 MG PO SCH ×2 (08:01→20:47)
[2017-04-01] MEDS: Omeprazole CAP* 20 MG PO SCH ×2 (08:01→16:23)
[2017-04-01] MEDS: amLODIPine TAB* 5 MG PO SCH (08:01)
[2017-04-01] MEDS: Furosemide TAB* 20 MG PO SCH ×2 (08:01→20:47)
[2017-04-01] MEDS: Aspirin EC Low Dose* 81 MG TAB.EC PO SCH (08:01)
[2017-04-01] MEDS: VORICONAZOLE 200 MG PO SCH ×2 (08:02→20:46)
[2017-04-01] MEDS: Montelukast Sodium TAB* 10 MG PO SCH (08:02)
[2017-04-01] MEDS ORDERED: Spiriva Inhaler DEVICE* 1 EACH DEVICE ONE (09:00)
[2017-04-01] MEDS: Mometasone/Formoter 200/5 MDI INH SCH ×2 (09:11→20:22)
[2017-04-01] MEDS: Tiotropium CAP.INH* CAP.INH/18 MCG INH SCH (09:11)
[2017-04-01] MEDS ORDERED: guaiFENesin ER TAB 600 MG PO ONE (10:12)
--- NOTE | 2017-04-01 10:26 | PN ---
Subjective Date of Service: 04/01/17 Interval History: No subj change since admission. More SOB than 1 week ago. Non-productive harsh cough. No BM. Objective Active Medications: Acetaminophen (Tylenol Tab*) 650 mg PO Q4H PRN PRN Reason: FEVER/PAIN Albuterol/Ipratropium (Duoneb (Albuterol 2.5 Mg/Ipratropium 0.5 Mg)) 1 neb INH Q4H PRN PRN Reason: SOB/WHEEZING Amlodipine Besylate (Norvasc Tab*) 10 mg PO DAILY [facility] Last Admin: 04/01/17 08:01 Dose: 10 mg Aspirin (Aspirin Ec Low Dose*) 81 mg PO DAILY [facility] Last Admin: 04/01/17 08:01 Dose: 81 mg Atorvastatin Calcium (Lipitor*) 20 mg PO QPM [facility] Cyclobenzaprine HCl (Flexeril Tab*) 10 mg PO TID PRN PRN Reason: PAIN Last Admin: 04/01/17 05:40 Dose: 10 mg Furosemide (Lasix Tab*) 20 mg PO BID [facility] Last Admin: 04/01/17 08:01 Dose: 20 mg Guaifenesin (Mucinex*) 1,200 mg PO BID [facility] Heparin Sodium (Porcine) (Heparin Vial(*)) 0 units IV .PER PROTOCOL [facility] PRN Reason: Protocol Last Admin: 03/31/17 20:16 Dose: 5,550 units Mometasone Furoate/Formoterol Fumar (Dulera 200/5 Mdi*) 2 puff INH BID [facility] PRN Reason: Protocol Last Admin: 04/01/17 09:11 Dose: 2 puff Montelukast Sodium (Singulair Tab*) 10 mg PO DAILY [facility] Last Admin: 04/01/17 08:02 Dose: 10 mg Omeprazole (Prilosec Cap*) 20 mg PO BID@0730,1630 [facility] Last Admin: 04/01/17 08:01 Dose: 20 mg Ondansetron HCl (Zofran Inj*) 4 mg IV Q4H PRN PRN Reason: NAUSEA/VOMITING Oxycodone/Acetaminophen (Percocet 5/325 Tab*) 1 tab PO Q4H PRN PRN Reason: Pain Last Admin: 04/01/17 01:25 Dose: 1 tab Rivaroxaban (Xarelto(*)) 15 mg PO BID [facility] Tiotropium [place] (Spiriva Cap.Inh*) 1 cap INH DAILY [facility] Last Admin: 04/01/17 09:11 Dose: 1 cap Tramadol HCl (Ultram*) 50 mg PO Q8H PRN PRN Reason: PAIN Last Admin: 04/01/17 05:40 Dose: 50 mg Voriconazole (Voriconazole Tab (Nf)) 200 mg PO BID [facility] PRN Reason: Protocol Last Admin: 04/01/17 08:02 Dose: 200 mg Vital Signs 03/31/17 03/31/17 03/31/17 18:30 19:28 19:30 Temperature 99.5 F Pulse Rate 89 95 91 Respiratory 16 16 Rate Blood Pressure 149/71 145/70 (mmHg) O2 Sat by Pulse 95 94 95 Oximetry 03/31/17 03/31/17 03/31/17 19:32 20:00 20:01 Temperature Pulse Rate 94 Respiratory 18 16 Rate Blood Pressure 145/70 151/78 (mmHg) O2 Sat by Pulse 95 Oximetry 03/31/17 03/31/17 03/31/17 20:02 20:30 20:50 Temperature 98.3 F Pulse Rate 91 96 Respiratory 16 16 22 Rate Blood Pressure 141/72 151/70 (mmHg) O2 Sat by Pulse 95 93 Oximetry 03/31/17 03/31/17 03/31/17 21:01 21:04 22:01 Temperature 98.3 F 99.1 F Pulse Rate 96 91 Respiratory 22 16 20 Rate Blood Pressure 151/70 141/72 (mmHg) O2 Sat by Pulse 93 Oximetry 03/31/17 04/01/17 04/01/17 22:02 01:25 02:26 Temperature Pulse Rate 82 Respiratory 20 19 20 Rate Blood Pressure (mmHg) O2 Sat by Pulse 92 Oximetry 04/01/17 04/01/17 04/01/17 03:25 03:33 05:40 Temperature 98.0 F Pulse Rate 78 Respiratory 15 20 19 Rate Blood Pressure 136/57 (mmHg) O2 Sat by Pulse 92 Oximetry 04/01/17 04/01/17 04/01/17 07:25 07:40 08:00 Temperature 97.6 F Pulse Rate 78 Respiratory 18 20 18 Rate Blood Pressure 134/59 (mmHg) O2 Sat by Pulse 91 Oximetry 04/01/17 09:15 Temperature Pulse Rate 71 Respiratory 14 Rate Blood Pressure (mmHg) O2 Sat by Pulse 93 Oximetry Oxygen Devices in Use Now: Nasal Cannula Appearance: Alert, in a chair. In fair spirits. Looks comfortable but occ harsh cough. Eyes: No Scleral Icterus Ears/Nose/Mouth/Throat: Clear Oropharnyx, Mucous Membranes Moist Neck: NL Appearance and Movements; NL JVP, No Thyroid Enlargement, Masses Respiratory: Symmetrical Chest Expansion and Respiratory Effort, Clear to Auscultation, Clear to Percussion Cardiovascular: NL Sounds; No Murmurs; No JVD, RRR, No Edema, - Extremities: No Edema, No Clubbing, Cyanosis, - Skin: No Rash or Ulcers, No Nodules or Sclerosis, - Neurological: Alert and Oriented x 3, NL Sensation Result Diagrams: 04/02/17 05:32 04/01/17 04:12 Additional Lab and Data: Lab Results 03/31/17 03/31/17 03/31/17 Range/Units 16:15 16:15 16:15 WBC 10.2 (3.5-10.8) 10^3/ul RBC 4.24 (4.0-5.4) 10^6/ul Hgb 12.2 L (14.0-18.0) g/dl Hct 38 L (42-52) % MCV 89 (80-94) fL MCH 29 (27-31) pg MCHC 32 (31-36) g/dl RDW 19 H (10.5-15) % Plt Count 446 (150-450) 10^3/ul MPV 7 L (7.4-10.4) um3 Neut % (Auto) 90.6 H (38-83) % Lymph % (Auto) 2.3 L (25-47) % [place] % (Auto) 7.1 (1-9) % Eos % (Auto) 0 (0-6) % Baso % (Auto) 0 (0-2) % Absolute Neuts (auto) 9.2 H (1.5-7.7) 10^3/ul Absolute Lymphs (auto) 0.2 L (1.0-4.8) 10^3/ul Absolute Monos (auto) 0.7 (0-0.8) 10^3/ul Absolute Eos (auto) 0 (0-0.6) 10^3/ul Absolute Basos (auto) 0 (0-0.2) 10^3/ul Absolute Nucleated RBC 0.01 10^3/ul Nucleated RBC % 0.1 INR (Anticoag Therapy) 0.82 L (0.89-1.11) APTT 26.1 (26.0-36.3) seconds D-Dimer, Quantitative 690 H (Less Than 230) ng/mL Sodium 133 (133-145) mmol/L Potassium 5.3 H (3.5-5.0) mmol/L Chloride 99 L (101-111) mmol/L Carbon Dioxide 27 (22-32) mmol/L Anion Gap 7 (2-11) mmol/L BUN 39 H (6-24) mg/dL Creatinine 0.99 (0.67-1.17) mg/dL Est GFR ( Amer) 96.1 (>60) Est GFR (Non-Af Amer) 74.7 (>60) BUN/Creatinine Ratio 39.4 H (8-20) Glucose 133 H (70-100) mg/dL Lactic Acid (0.5-2.0) mmol/L Calcium 9.0 (8.6-10.3) mg/dL Magnesium 2.4 (1.9-2.7) mg/dL Total Bilirubin 0.30 (0.2-1.0) mg/dL AST 15 (13-39) U/L ALT 17 (7-52) U/L Alkaline Phosphatase 111 H (34-104) U/L Total Creatine Kinase 30 (10-223) U/L CK-MB (CK-2) 3.6 (0.6-6.3) ng/mL Troponin I 0.02 (<0.04) ng/mL C-Reactive Protein 46.36 H (< 5.00) mg/L B-Natriuretic Peptide ( - 100) pg/mL Total Protein 7.0 (6.4-8.9) g/dL Albumin 3.7 (3.2-5.2) g/dL Globulin 3.3 (2-4) g/dL Albumin/Globulin Ratio 1.1 (1-3) Lipase < 10 L (11.0-82.0) U/L TSH Pending 03/31/17 03/31/17 Range/Units 16:15 16:15 WBC (3.5-10.8) 10^3/ul RBC (4.0-5.4) 10^6/ul Hgb (14.0-18.0) g/dl Hct (42-52) % MCV (80-94) fL MCH (27-31) pg MCHC (31-36) g/dl RDW (10.5-15) % Plt Count (150-450) 10^3/ul MPV (7.4-10.4) um3 Neut % (Auto) (38-83) % Lymph % (Auto) (25-47) % [place] % (Auto) (1-9) % Eos % (Auto) (0-6) % Baso % (Auto) (0-2) % Absolute Neuts (auto) (1.5-7.7) 10^3/ul Absolute Lymphs (auto) (1.0-4.8) 10^3/ul Absolute Monos (auto) (0-0.8) 10^3/ul Absolute Eos (auto) (0-0.6) 10^3/ul Absolute Basos (auto) (0-0.2) 10^3/ul Absolute Nucleated RBC 10^3/ul Nucleated RBC % INR (Anticoag Therapy) (0.89-1.11) APTT (26.0-36.3) seconds D-Dimer, Quantitative (Less Than 230) ng/mL Sodium (133-145) mmol/L Potassium (3.5-5.0) mmol/L Chloride (101-111) mmol/L Carbon Dioxide (22-32) mmol/L Anion Gap (2-11) mmol/L BUN (6-24) mg/dL Creatinine (0.67-1.17) mg/dL Est GFR ( Amer) (>60) Est GFR (Non-Af Amer) (>60) BUN/Creatinine Ratio (8-20) Glucose (70-100) mg/dL Lactic Acid 1.4 (0.5-2.0) mmol/L Calcium (8.6-10.3) mg/dL Magnesium (1.9-2.7) mg/dL Total Bilirubin (0.2-1.0) mg/dL AST (13-39) U/L ALT (7-52) U/L Alkaline Phosphatase (34-104) U/L Total Creatine Kinase (10-223) U/L CK-MB (CK-2) (0.6-6.3) ng/mL Troponin I (<0.04) ng/mL C-Reactive Protein (< 5.00) mg/L B-Natriuretic Peptide 77 ( - 100) pg/mL Total Protein (6.4-8.9) g/dL Albumin (3.2-5.2) g/dL Globulin (2-4) g/dL Albumin/Globulin Ratio (1-3) Lipase (11.0-82.0) U/L TSH Assess/Plan/Problems-Billing Assessment: - Patient Problems (1) Pulmonary embolism Current Visit: Yes Status: Acute Code(s): I26.99 - OTHER PULMONARY EMBOLISM WITHOUT ACUTE COR PULMONALE SNOMED Code(s): 04740142 Comment: Change to rivaoxaban. Anticoagulation discussed with Dr. Gonzalez. Consider d/c 04/02 if H&H stable. (2) Atrial fibrillation Current Visit: No Status: Acute Code(s): I48.91 - UNSPECIFIED ATRIAL FIBRILLATION SNOMED Code(s): 55610502 Comment: Discussed with Dr. Gonzalez. Could stay on rivaroxaban indefinitely as his anticoagulant for AF. (3) Aspergillosis Current Visit: Yes Status: Acute Code(s): B44.9 - ASPERGILLOSIS, UNSPECIFIED SNOMED Code(s): 62515144 Comment: Continue voriconazole. Fup Dr. Means. (4) Peptic ulcer disease Current Visit: Yes Status: Acute Code(s): K27.9 - PEPTIC ULC, SITE UNSP, UNSP AC OR CHR, W/O HEMOR OR PERF SNOMED Code(s): 91687204 Comment: Healed gastric ulcers. Continue omeprazole. CBC 5 PM 04/01, 6 AM . (5) COPD (chronic obstructive pulmonary disease) Current Visit: No Status: Chronic Code(s): J44.9 - CHRONIC OBSTRUCTIVE PULMONARY DISEASE, UNSPECIFIED SNOMED Code(s): 95823518 Comment: Continue bronchodilators, spiriva, montelukast. Increase guifenesin [place] to 1200 mg bid. (6) Foot drop, bilateral Current Visit: Yes Status: Acute Code(s): M21.371 - FOOT DROP, RIGHT FOOT; M21.372 - FOOT DROP, LEFT FOOT SNOMED Code(s): 3612444 Comment: Pt c/o BL foot drop, hard to walk. PT laura. Consult to Dr. Lam.
[2017-04-01] MEDS: Rivaroxaban TAB(*) 15 MG PO SCH ×2 (11:13→20:47)
[2017-04-01] MEDS ORDERED: Ergocalciferol CAP* 50000 UNIT PO ONE (16:58)
[2017-04-01 17:38] LABS: Hematocrit 38 % (42-52); Mean Corpuscular HGB Conc 32 g/dl (31-36); Mean Corpuscular Hemoglobin 29 pg (27-31); Mean Corpuscular Volume 90 fL (80-94); Mean Platelet Volume 7 um3 (7.4-10.4); Red Blood Count 4.18 10^6/ul (4.0-5.4); Red Cell Distribution Width 19 % (10.5-15); White Blood Count 9.8 10^3/ul (3.5-10.8)
[2017-04-01 17:39] LABS: Add Diff/Slide Review? Slide Review Added; Comments Flag Yes
[2017-04-01] MEDS ORDERED: Atorvastatin* 20 MG TAB PO SCH (18:00)
--- NOTE | 2017-04-01 20:40 | CONS ---
CC: Dr. Means; Dr. Israel; Dr. Garcia* CONSULTATION REPORT: DATE OF CONSULT: 04/01/17 REFERRING PROVIDER: Dr. Asencio. LOCATION: He is an inpatient in room 419. CHIEF COMPLAINT: Foot drops. HISTORY OF PRESENT ILLNESS: Omid Celis is a 71-year-old gentleman who was admitted yesterday with back pain, chest pain, and bilateral foot drops. He has been in and out of the hospital for months for recurrences of COPD, pulmonary aspergillosis, and GI bleeding which was in December 2016. He was going to physical therapy and a couple of weeks was doing pretty well, able to go up stairs by himself. However, he developed worsening back and chest pain and increased coughing and shortness of breath over last week or so and stopped physical therapy. The back pain got bad enough yesterday that he presented to the emergency room. He had a number of evaluations including a CT of the chest , which showed evidence of pulmonary emboli in the left upper lobe and multiple compression fractures of thoracic and lumbar vertebrae. There were also multiple bilateral rib fractures. He had one fall earlier this week. He does not feel that he injured himself and feels that the rib fractures are from repetitive coughing. He had an MRI of the lumbar spine today, which reveals the fractures as well as some lateral recess stenosis at several levels, but no significant central canal stenosis of any particular level. Two days ago, he noted in the afternoon that his feet were slapping. His who accompanies him this evening says it was audible. He felt it was worse in the right, but present in the left as well, and noticed at the same time. He does not think it was present first thing in the morning, but he is not entirely sure. He has been very inactive, particularly in the last week, and spends most of his time seated. He does not have any pain in his legs. He does have some numbness in his toes, which is new and is better today than it was yesterday. He also feels that his ankle dorsiflexor weakness has improved since yesterday. He does not feel there is any new weakness or numbness in his arms or hands. He has thoracic back pain, but no neck pain. He says his bladder works fine. PAST MEDICAL HISTORY: Notable for prostate cancer, treated years ago with prostatectomy. My understanding is that there is no evidence of recurrent disease. He has coronary artery disease, COPD, hypertension, hyperlipidemia, atrial fibrillation for which was he anticoagulated until the GI bleed, pulmonary aspergillosis. MEDICATIONS: At the time of admission consist of: 1. Multiple inhalers. 2. Aspirin 81 mg p.o. q. day. 3. Atorvastatin 20 mg p.o. q. day. 4. Singulair 10 mg p.o. q. day. 5. Lasix 20 mg p.o. b.i.d. 6. Tramadol 50 mg p.o. t.i.d. 7. Flexeril 10 mg p.o. t.i.d. 8. Lisinopril 10 mg p.o. q. day. 9. Voriconazole 200 mg p.o. b.i.d. 10. Amlodipine 10 mg p.o. q. day. REVIEW OF SYSTEMS: Negative for change in vision, headaches, difficulty with speech or swallowing. He does not have any pain in his legs other than a little bit of aching in his thighs. He does not have any pain in his arms, but he does in the shoulder and ribs. He has been coughing a lot. He has been very inactive. He sleeps well. He sleeps in the bed, not a chair. He does not take calcium or vitamin D at home. There is no family history of neuromuscular disorders. PHYSICAL EXAM: He is well hydrated and reasonably well nourished. His chronic oxygen therapy is running by nasal cannula. Most recent temperature 97.2 orally , blood pressure 122/50, heart rate in the 80s and regular, respiratory rate is 19, oxygen saturation is 95% on 2 L nasal cannula. Lungs reveal diffuse wheezes. Heart has distant heart tones with irregular rhythm and no murmurs. Carotid pulses are hard to feel, but I do not hear any bruits either. Oral mucosa is moist without exudates. There is no pain to palpation around the knees. There are no retro popliteal masses. There is 2+ pitting ankle edema bilaterally. Neurologically, pupils, fundi, and eye movements are unremarkable. There is no ptosis. Visual jules are full to confrontation. Facial musculature is strong. Palate and tongue appear normal and there is no dysarthria. He has a little bit of head tremor. He is a little hard of hearing. Facial sensation to light touch is intact. Motor exam reveals pain and restriction of motion about the right shoulder and some rib pain with upper extremity strength testing. He has, however, pretty good strength at biceps, triceps, wrist extensors and flexors, and finger extensors. In the lower extremities, he has barely grade 4 to 4- hip flexor weakness symmetrically. He has good quadriceps and hamstring strength. He has good plantar flexion strength. He has trace ankle dorsiflexion weakness bilaterally. He has intact inversion bilaterally and weak eversion bilaterally. Reflexes are intact and symmetric at biceps, brachioradialis, and knees. Ankle reflexes are absent. Plantar responses are mute bilaterally. Sensory exam is notable for diminished pin discrimination on the medial aspect of the feet bilaterally. There is vibratory loss in the feet, but is not completely absent. Sensation in the hands is normal. He has a fine sustention tremor in the hands. There is no myoclonus. He is alert and oriented and a good historian with intact memory and fluent language. He has good attention, concentration, and adequate fund of knowledge. LABORATORY DATA: Notable for chemistries today with a BUN of 29, glucose 114. Calcium is a little bit low at 8.2, but albumin is normal at 3.7. Vitamin D level is quite low at 12.6. Protein electrophoresis from last month did not reveal a monoclonal protein. CRP is elevated yesterday at 46. TSH little normal yesterday at 0.37. 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 He does not have evidence of lumbar stenosis in spite of his compression fractures, but he could have bilateral lateral recess stenosis. He has been sitting a lot at home in a chair and when I went over the differential diagnosis he thinks it is probably because he has been sitting so much. We will arrange for nerve conduction studies tomorrow. If he has bilateral peroneal neuropathies across the knees, then I think it will probably get better with time and care to avoid compression. If it looks to be a radiculopathy, he may need a lumbar spine MRI with contrast to make sure he does not have any evidence of carcinomatosis or other meningeal compressive disease. 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 Certainly, he needs vitamin D repleted with his multiple fractures and low vitamin D level. I would also add some other lab studies for other causes of neuropathy including a Lyme screen and a repeat protein electrophoresis and vitamin B12 level. [id number]/[facility] #: [id number] [facility] SYSTEMMainor
[2017-04-02] MEDS: oxyCODONE/Acetamin 5/325 MG* TAB PO PRN ×2 (03:52→09:50)
[2017-04-02 05:40] LABS: Hematocrit 37 % (42-52); Hemoglobin 11.6 g/dl (14.0-18.0); Mean Corpuscular HGB Conc 32 g/dl (31-36); Mean Corpuscular Hemoglobin 29 pg (27-31); Mean Corpuscular Volume 90 fL (80-94); Mean Platelet Volume 7 um3 (7.4-10.4); Red Blood Count 4.05 10^6/ul (4.0-5.4); Red Cell Distribution Width 19 % (10.5-15); White Blood Count 9.7 10^3/ul (3.5-10.8)
[2017-04-02 05:46] LABS: Add Diff/Slide Review? Slide Review Added; Comments Flag Yes
[2017-04-02] MEDS: traMADol TAB* 50 MG PO PRN (06:02)
[2017-04-02] MEDS: Mometasone/Formoter 200/5 MDI INH SCH (07:40)
[2017-04-02] MEDS: Tiotropium CAP.INH* CAP.INH/18 MCG INH SCH (07:41)
[2017-04-02] MEDS: VORICONAZOLE 200 MG PO SCH (09:39)
[2017-04-02] MEDS: Aspirin EC Low Dose* 81 MG TAB.EC PO SCH (09:40)
[2017-04-02] MEDS: Omeprazole CAP* 20 MG PO SCH (09:40)
[2017-04-02] MEDS: amLODIPine TAB* 5 MG PO SCH (09:41)
[2017-04-02] MEDS: Rivaroxaban TAB(*) 15 MG PO SCH (09:41)
[2017-04-02] MEDS: Montelukast Sodium TAB* 10 MG PO SCH (09:41)
[2017-04-02] MEDS: Furosemide TAB* 20 MG PO SCH (09:41)
[2017-04-02] MEDS: guaiFENesin ER TAB 600 MG PO SCH (09:42)
[2017-04-02] MEDS: Cyclobenzaprine TAB* 10 MG PO PRN (09:51)
--- NOTE | 2017-04-02 10:26 | PN ---
Progress Note - Progress Note Date of Service: 04/02/17 Note: Time spent on discharge 50 minutes.
[2017-04-02 11:37] VITALS: BP 102/46
--- NOTE | 2017-04-02 15:39 | CONS ---
NEUROLOGY FOLLOWUP NOTE: DATE OF FOLLOWUP: 04/02/17 HOSPITALIST: Dr. Asencio. LOCATION: He is an inpatient in room 419. CHIEF COMPLAINT: Foot drops. INTERVAL HISTORY: Since yesterday, Mr. Celis notes a significant improvement in the ability to dorsiflex both feet. He does not have any numbness in his feet at this time. Plan is for him to be discharged today. He had nerve conduction studies earlier today notable for bilateral peroneal neuropathies. Amplitudes were diminished and conduction velocities were markedly slowed from popliteal fossa to below the fibular neck. Tibial amplitudes were a little bit decreased but conduction velocities were normal and sural sensory responses were a bit small, but otherwise normal in spite of his edema. MEDICATIONS: Reviewed and he remains on: 1. Omeprazole 20 mg p.o. b.i.d. 2. Percocet 5/325 one q.4 hours as needed for pain. 3. Xarelto. 4. Tramadol 50 mg p.o. q.8 hours as needed for pain. 5. Voriconazole 200 mg p.o. b.i.d. 6. Atorvastatin 20 mg p.o. q. day. 7. Furosemide 20 mg p.o. b.i.d. 8. Norvasc 10 mg p.o. q. day. PHYSICAL EXAM: He is afebrile, blood pressure most recently 102/46, heart rate 78 and regular. He has mild bilateral hip flexor weakness. He now has antigravity ankle dorsiflexor weakness bilaterally. He is in good spirits and alert and oriented. Memory is intact and language is fluent. LABORATORY DATA: New laboratory data includes a hemoglobin A1c elevated at 6.5% . Vitamin B12 level was normal at 277. IMPRESSION AND PLAN: Impression is that of bilateral peroneal neuropathies at the knee probably from compression. He is improving by the day. He also has proximal weakness probably from either steroid myopathy or osteomalacic myopathy. He got a dose of vitamin D 50,000 units yesterday. I explained the results of his nerve conduction studies and advised him as to how to avoid compression of the peroneal nerves at the knees. As long as it continues to improve, I do not think he needs further neurological workup. [id number]/[facility] #: [id number] [facility]
--- NOTE | 2017-04-03 02:16 | DS ---
CC: Dr. Garcia; Dr. Gonzalez; Dr. Means * DISCHARGE SUMMARY: DATE OF ADMISSION: 03/31/17 DATE OF DISCHARGE: 04/02/17 HISTORY OF PRESENT ILLNESS: This 71-year-old man presented with shortness of breath, back pain, and lower extremity weakness. He specifically complained of foot-drop. CTA of the chest showed low volume pulmonary embolus in the left upper lobe and advanced emphysema. There are multiple compression fractures of the thoracic and lumbar spine with progression at T4 and new endplate compression fractures at L1 and L2. There were multiple bilateral rib fractures without significant displacement or pneumothorax. The patient was started initially on heparin. We wanted to make sure his hemoglobin and hematocrit were stable with his history of prior GI bleeding. They were stable and there was no evidence of bleeding. He was changed to rivaroxaban and should go on rivaroxaban indefinitely as he would need it for his atrial fibrillation. Dr. Lam saw him in consultation because of his foot-drop. He had an MRI of the lumbar spine. Dr. Lam's impression was he had bilateral L5 radiculopathies or bilateral perineal neuropathies at the knees. Nerve conduction studies were done on the day of discharge, the results are pending at this time. His vitamin D level was 12.6, I am starting him on vitamin D 1000 units daily. B12 level was 277. Serum electrophoresis and Lyme serology are both pending at this time as are the nerve conduction studies. The patient did complain of back pain. I am giving him 20 oxycodone, acetaminophen for pain control. FINAL DIAGNOSES: 1. Pulmonary embolism. 2. Atrial fibrillation. 3. Aspergillosis. 4. Peptic ulcer disease. 5. Chronic obstructive pulmonary disease. 6. Bilateral foot-drops. 7. Vitamin D deficiency. DISCHARGE MEDICATIONS: 1. Rivaroxaban 15 mg b.i.d. for 20 days, then start rivaroxaban 20 mg daily. 2. Oxycodone/acetaminophen 5/325 one every 4 hours p.r.n. 3. Tiotropium 1 capsule daily. 4. Albuterol inhaler 2 puffs q.i.d. p.r.n. 5. Guaifenesin ER 1200 mg b.i.d. 6. Albuterol 2.5/3 ml by neb q.i.d. p.r.n. 7. Amlodipine 10 mg daily. 8. Omeprazole 20 mg b.i.d. 9. Atorvastatin 20 mg h.s. 10. Potassium chloride 20 mEq daily. 11. Albuterol ipratropium inhaler 2 puffs q.i.d. p.r.n. 12. Aspirin 81 mg daily. 13. Furosemide 20 mg b.i.d. 14. Montelukast 10 mg daily. 15. Budesonide/formoterol 160/4.5 two puffs b.i.d. 16. Levalbuterol 1.25/0.5 mL q.i.d. p.r.n. 17. Cyclobenzaprine 10 mg t.i.d. p.r.n. 18. Voriconazole 200 mg b.i.d. [id number]/[facility] #: [id number] [facility]
[2017-04-03 14:00] LABS: Albumin 2.7 g/dL (3.4-4.7); Gamma Globulin 0.5 g/dL (0.6-1.6); Total Protein(PEP) 6.1 g/dL (6.3 - 7.9)
== END 2017-04-02 14:05 | disposition home health service (06) | DRG 176 ==
LOC: ED 15:23 → MED 18:18
PROVIDERS: ADMIT Internal Medicine; ATTEND Internal Medicine
DX: I26.99 Other pulmonary embolism without acute cor pulmonale (principal); B44.1 Other pulmonary aspergillosis; J96.10 Chronic respiratory failure, unspecified whether with hypoxia or hypercapnia; G62.9 Polyneuropathy, unspecified; E87.5 Hyperkalemia; I48.0 Paroxysmal atrial fibrillation; M48.55XA Collapsed vertebra, not elsewhere classified, thoracolumbar region, initial encounter for fracture; I10 Essential (primary) hypertension; K27.9 Peptic ulcer, site unspecified, unspecified as acute or chronic, without hemorrhage or perforation; E55.9 Vitamin D deficiency, unspecified; J44.9 Chronic obstructive pulmonary disease, unspecified; E78.5 Hyperlipidemia, unspecified; E78.00 Pure hypercholesterolemia, unspecified; R40.2412 Glasgow coma scale score 13-15, at arrival to emergency department; M21.372 Foot drop, left foot; M21.371 Foot drop, right foot; I25.10 Atherosclerotic heart disease of native coronary artery without angina pectoris; R25.1 Tremor, unspecified; M54.16 Radiculopathy, lumbar region; Z79.01 Long term (current) use of anticoagulants; Z88.8 Allergy status to other drugs, medicaments and biological substances; Z90.79 Acquired absence of other genital organ(s); Z82.5 Family history of asthma and other chronic lower respiratory diseases; Z82.49 Family history of ischemic heart disease and other diseases of the circulatory system; Z87.891 Personal history of nicotine dependence; Z85.46 Personal history of malignant neoplasm of prostate; Z79.82 Long term (current) use of aspirin
CPT/HCPCS: 36415; 71275; 72148; 80048; 80053; 81003; 82306; 82550; 82553; 82607; 83036; 83605; 83690; 83735; 83880; 84155; 84165; 84443; 84484; 85025; 85379; 85610; 85730; 86140; 86618; 87040; 93005; 94640; 94760; 95909; A9270-GY; J1644; Q9967

== ENCOUNTER 2017-04-07 06:43 | Inpatient (IN) | payer MEDICARE ==
[2017-04-07] MEDS ORDERED: Albuterol/Ipratropium NEB.SOL* Albuterol 2.5 MG/Ipratropium 0.5 MG 3 ML INH ONE (06:53)
[2017-04-07] MEDS ORDERED: methylPREDNISolone 125 MG* 2 ML VIAL IV ONE (06:53)
[2017-04-07] MEDS ORDERED: Furosemide IV* 10 MG/ML 10 ML VIAL (100 MG) IV ONE (06:53)
[2017-04-07 07:19] LABS: Hematocrit 33 % (42-52); Hemoglobin 10.6 g/dl (14.0-18.0); Mean Corpuscular HGB Conc 32 g/dl (31-36); Mean Corpuscular Hemoglobin 28 pg (27-31); Mean Corpuscular Volume 88 fL (80-94); Mean Platelet Volume 8 um3 (7.4-10.4); Red Blood Count 3.78 10^6/ul (4.0-5.4); Red Cell Distribution Width 19 % (10.5-15); White Blood Count 13.6 10^3/ul (3.5-10.8)
[2017-04-07 07:24] LABS: Comments Flag Yes
[2017-04-07 07:25] LABS: Add Diff/Slide Review? Slide Review Added
[2017-04-07 07:32] LABS: Albumin 3.2 g/dL (3.2-5.2); BUN/Creatinine Ratio 32.4 (8-20); Calcium 9.4 mg/dL (8.6-10.3); EGFR African American 134.5 (>60); EGFR Non-African American 104.6 (>60); Globulin 3.6 g/dL (2-4); Total Bilirubin 0.4 mg/dL (0.2-1.0); Total Protein 6.8 g/dL (6.4-8.9)
[2017-04-07 07:35] LABS: EPAP 6; FIO2 50; IPAP 12; Resp Rate 12
[2017-04-07] MEDS ORDERED: cefTRIAXone(*) 1 GM in NS 0.9% 50 ML* 50 ML IVPB ONE (07:40)
[2017-04-07] MEDS ORDERED: Azithromycin IV(*) 500 MG in NS 0.9% 250 ML* 250 ML IVPB ONE (07:41)
[2017-04-07 07:42] LABS: PCO2 Arterial 43 mmHg (35-45)
[2017-04-07 07:45] LABS: Troponin I 0.04 ng/mL (<0.04)
[2017-04-07 07:46] LABS: Potassium 6.1 mmol/L (3.5-5.0)
--- NOTE | 2017-04-07 08:06 | RAD ---
INDICATION: Shortness of breath and cough COMPARISON: Most recent comparison chest x-rays dated March 01, 2017 TECHNIQUE: Single AP portable view of the chest was obtained. FINDINGS: Image quality is compromised due to the relative inferiority of a portable chest x-ray. The heart and mediastinum exhibit normal size and contour. There is interval appearance of patchy infiltrate overlying the bilateral lower lungs, worse when compared to the previous chest x-ray. Visualized bones are normal for the patient's age. IMPRESSION: Interval worsening of patchy density at the bilateral lower lungs which could represent pneumonia in the correct clinical setting.
[2017-04-07] MEDS ORDERED: Vancomycin per Pharmacy* NOTE FOLLOW UP PRN (08:58)
[2017-04-07] MEDS ORDERED: Cyclobenzaprine TAB* 10 MG PO PRN (08:59)
[2017-04-07] MEDS ORDERED: Rivaroxaban TAB(*) 15 MG PO SCH (09:00)
[2017-04-07] MEDS ORDERED: Vancomycin(*) 1,000 MG in NS 0.9% 250 ML* 250 ML IVPB ONE (09:30)
[2017-04-07] MEDS: Tiotropium CAP.INH* CAP.INH/18 MCG INH SCH (11:41)
[2017-04-07] MEDS: Mometasone/Formoter 200/5 MDI INH SCH ×2 (11:41→22:24)
[2017-04-07] MEDS: Cefepime(*) 1 GM in NS 0.9% 50 ML* 50 ML IVPB SCH ×2 (11:53→21:10)
[2017-04-07] MEDS: Montelukast Sodium TAB* 10 MG PO SCH (11:54)
[2017-04-07] MEDS: Aspirin EC Low Dose* 81 MG TAB.EC PO SCH (11:54)
[2017-04-07] MEDS: Cholecalciferol TAB* 1000 UNITS PO SCH (11:54)
[2017-04-07] MEDS: amLODIPine TAB* 5 MG PO SCH (11:54)
[2017-04-07] MEDS: Omeprazole CAP* 20 MG PO SCH ×2 (11:54→20:49)
[2017-04-07] MEDS: guaiFENesin ER TAB 600 MG PO SCH ×2 (11:55→20:49)
--- NOTE | 2017-04-07 12:01 | ED ---
Christine Mckeon Thomas, scribed for Austin Lockhart MD on 04/07/17 at 0724 . Shortness of Breath - HPI Summary HPI Summary: 71M presents to the ED BIB with SOB since 530 this morning. Pt states that his SOB began while getting up this morning and is aggravated by upright position and alleviated by supine position. Pt notes wheezing. Pt denies CP, fever, chills, or cough. Pt denies direct trauma. 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 Pt is a former smoker. Pt is on 4L home O2. Pt takes Lasix BID and Eliquis. - History of Current Complaint Hx Obtained From: Patient Onset/Duration: Sudden Onset - 05:30, Still Present Dyspnea At: Rest Associated Signs & Symptoms: Wheezing - Allergy/Home Medications Allergies/Adverse Reactions: Allergies Allergy/AdvReac Type Severity Reaction Status Date / Time Adhesive Tape [Plastic Tape] Allergy Intermediate Bleeding Verified 03/31/17 16: 39 Simvastatin Allergy See Comment Verified 03/31/17 16:39 PMH/Surg Hx/FS Hx/Imm Hx Previously Healthy: No Endocrine/Hematology History: Reports: Hx Anemia Denies: Hx Diabetes, Hx Thyroid Disease Cardiovascular History: Reports: Hx Cardiomegaly, Hx Hypercholesterolemia, Hx Hypertension, Other Cardiovascular Problems/Disorders - Afib Denies: Hx Pacemaker/ICD Respiratory History: Reports: Hx Asthma, Hx Chronic Obstructive Pulmonary Disease (COPD), Hx Pneumonia, Other Respiratory Problems/Disorders - COPD GI History: Reports: Hx Gastrointestinal Bleed - December 2016 Denies: Hx Ulcer History: Denies: Hx Dialysis Musculoskeletal History: Reports: Hx Orthopedic Injury - broken left ankle ( many years ago), Other Musculoskeletal History - rotator cuff surgery Denies: Hx Back Problems Sensory History: Reports: Hx Cataracts, Hx Contacts or Glasses Denies: Hx Hearing Aid, Hx Hearing Problem Opthamlomology History: Reports: Hx Cataracts, Hx Contacts or Glasses Neurological History: Denies: Hx Dementia, Hx Seizures Psychiatric History: Denies: Hx Panic Disorder - Cancer History Cancer Type, 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 - Surgical History Surgery Procedure, Year, and Place: PROSTATECTOMY,Tonsilectomy; CARDIAC CATH- 2016- NO STENTS PLACED Infectious Disease History: Denies: Hx Clostridium Difficile, Hx Hepatitis, Hx Human Immunodeficiency Virus (HIV), Hx of Known/Suspected MRSA, Hx Shingles, Hx Tuberculosis, Hx Known/ Suspected VRE, Hx Known/Suspected VRSA, History Other Infectious Disease, Traveled Outside the [place] in Last 30 Days - Family History Known Family History: Positive: Cardiac Disease, Hypertension, Respiratory Disease - COPD - Social History Alcohol Use: None Hx Substance Use: No Substance Use Type: Reports: None Hx Tobacco Use: No Smoking Status (MU): Former Smoker Type: Cigarettes Amount Used/How Often: 30 +years Review of Systems Constitutional: Negative Negative: Fever, Chills Eyes: Negative ENT: Negative Cardiovascular: Negative Negative: Chest Pain Positive: Shortness Of Breath - onest 05:30 this AM, aggravated by upright position and alleviated by supine position. . Negative: Cough Gastrointestinal: Negative Genitourinary: Negative Musculoskeletal: Negative Skin: Negative Neurological: Negative Psychological: Normal All Other Systems Reviewed And Are Negative: Yes Physical Exam - Summary Physical Exam Summary: The patient is well-nourished in moderate respiratory distress. The skin is warm and diaphoretic with pallor. HEENT: The head is normocephalic and atraumatic. The pupils are equal and reactive. The conjunctivae are clear and without drainage. Nares are patent and without drainage. Mouth reveals moist mucous membranes and the throat is without erythema and exudate. The external ears are intact. The tympanic membranes are intact. Neck is supple with full range of motion and non-tender. There are no carotid bruits. There is no neck vein distension. Respiratory: Chest is non-tender. Lungs are clear to auscultation and breath sounds are symmetrical and equal. There are rhonchi and wheezing in the lung bases bilaterally. There are rales bilaterally throughout the lung jules. Cardiovascular: Heart is irregular with distant heart sounds. There is no murmur or rub auscultated. There is no peripheral edema and pulses are symmetrical and equal. Abdomen: The abdomen is soft and non-tender. There are normal bowel sounds heard in all four quadrants and there is no organomegaly palpated. Musculoskeletal: There is no back pain noted. Extremities are non-tender with full range of motion. There is a 3 second capillary refill. There is a pitting edema of the lower extremities with no calf tenderness elicited. Neurological: Patient is alert and oriented to person, place and time. The patient has symmetrical motor strength in all four extremities. Cranial nerves are grossly intact. Deep tendon reflexes are symmetrical and equal in all four extremities. Psychiatric: The patient has an appropriate affect and does not exhibit any anxiety or depression. Triage Information Reviewed: Yes Vital Signs On Initial Exam: Initial Vitals Temp Pulse Resp BP Pulse Ox 99.3 F 94 22 121/64 95 04/07/17 06:58 04/07/17 06:58 04/07/17 06:58 04/07/17 06:58 04/07/17 06:58 Vital Signs Reviewed: Yes Diagnostics - Vital Signs Temp 99.3; Pulse 94; Resp 22; BP 121/64; Pulse Ox 95 - Laboratory Lab Results: Lab Results 04/07/17 04/07/17 04/07/17 Range/Units 07:07 07:07 07:07 WBC 13.6 H (3.5-10.8) 10^3/ul RBC 3.78 L (4.0-5.4) 10^6/ul Hgb 10.6 L (14.0-18.0) g/dl Hct 33 L (42-52) % MCV 88 (80-94) fL MCH 28 (27-31) pg MCHC 32 (31-36) g/dl RDW 19 H (10.5-15) % Plt Count 530 H D (150-450) 10^3/ul MPV 8 (7.4-10.4) um3 Neut % (Auto) 76.8 (38-83) % Lymph % (Auto) 6.8 L (25-47) % [place] % (Auto) 15.3 H (1-9) % Eos % (Auto) 1.0 (0-6) % Baso % (Auto) 0.1 (0-2) % Absolute Neuts (auto) 10.5 H (1.5-7.7) 10^3/ul Absolute Lymphs (auto) 0.9 L (1.0-4.8) 10^3/ul Absolute Monos (auto) 2.1 H (0-0.8) 10^3/ul Absolute Eos (auto) 0.1 (0-0.6) 10^3/ul Absolute Basos (auto) 0 (0-0.2) 10^3/ul Absolute Nucleated RBC 0.01 10^3/ul Nucleated RBC % 0 INR (Anticoag Therapy) (0.89-1.11) APTT (26.0-36.3) seconds Patient Temperature ABG pH (7.35-7.45) ABG pCO2 (35-45) mmHg ABG pO2 (80-100) mmHg ABG HCO3 (19-31) mmol/L ABG O2 Saturation (95-98) % ABG Base Excess (-2.0-2.0) Respiration Rate O2 Delivery Device Ventilator Type Vent Mode FiO2 Inspiratory Time PEEP Pressure Support Pressure Control EPAP IPAP BiPAP Sodium 124 L (133-145) mmol/L Potassium 6.1 H* (3.5-5.0) mmol/L Chloride 89 L (101-111) mmol/L Carbon Dioxide 26 (22-32) mmol/L Anion Gap 9 (2-11) mmol/L BUN 24 (6-24) mg/dL Creatinine 0.74 (0.67-1.17) mg/dL Est GFR ( Amer) 134.5 (>60) Est GFR (Non-Af Amer) 104.6 (>60) BUN/Creatinine Ratio 32.4 H (8-20) Glucose 92 (70-100) mg/dL Lactic Acid 1.2 (0.5-2.0) mmol/L Calcium 9.4 (8.6-10.3) mg/dL Total Bilirubin 0.40 (0.2-1.0) mg/dL AST 33 (13-39) U/L ALT 24 (7-52) U/L Alkaline Phosphatase 118 H (34-104) U/L Troponin I 0.04 H* (<0.04) ng/mL B-Natriuretic Peptide ( - 100) pg/mL Total Protein 6.8 (6.4-8.9) g/dL Albumin 3.2 (3.2-5.2) g/dL Globulin 3.6 (2-4) g/dL Albumin/Globulin Ratio 0.9 L (1-3) 04/07/17 04/07/17 04/07/17 Range/Units 07:07 07:07 07:30 WBC (3.5-10.8) 10^3/ul RBC (4.0-5.4) 10^6/ul Hgb (14.0-18.0) g/dl Hct (42-52) % MCV (80-94) fL MCH (27-31) pg MCHC (31-36) g/dl RDW (10.5-15) % Plt Count (150-450) 10^3/ul MPV (7.4-10.4) um3 Neut % (Auto) (38-83) % Lymph % (Auto) (25-47) % [place] % (Auto) (1-9) % Eos % (Auto) (0-6) % Baso % (Auto) (0-2) % Absolute Neuts (auto) (1.5-7.7) 10^3/ul Absolute Lymphs (auto) (1.0-4.8) 10^3/ul Absolute Monos (auto) (0-0.8) 10^3/ul Absolute Eos (auto) (0-0.6) 10^3/ul Absolute Basos (auto) (0-0.2) 10^3/ul Absolute Nucleated RBC 10^3/ul Nucleated RBC % INR (Anticoag Therapy) 1.44 H (0.89-1.11) APTT 33.5 (26.0-36.3) seconds Patient Temperature Not Reportable ABG pH 7.41 (7.35-7.45) ABG pCO2 43 (35-45) mmHg ABG pO2 79 L (80-100) mmHg ABG HCO3 26.6 (19-31) mmol/L ABG O2 Saturation 94.2 L (95-98) % ABG Base Excess 2.3 H (-2.0-2.0) Respiration Rate 12 O2 Delivery Device bipap Ventilator Type Not Reportable Vent Mode s/t FiO2 50 Inspiratory Time 1.0 PEEP Not Reportable Pressure Support Not Reportable Pressure Control Not Reportable EPAP 6 IPAP 12 BiPAP Not Reportable Sodium (133-145) mmol/L Potassium (3.5-5.0) mmol/L Chloride (101-111) mmol/L Carbon Dioxide (22-32) mmol/L Anion Gap (2-11) mmol/L BUN (6-24) mg/dL Creatinine (0.67-1.17) mg/dL Est GFR ( Amer) (>60) Est GFR (Non-Af Amer) (>60) BUN/Creatinine Ratio (8-20) Glucose (70-100) mg/dL Lactic Acid (0.5-2.0) mmol/L Calcium (8.6-10.3) mg/dL Total Bilirubin (0.2-1.0) mg/dL AST (13-39) U/L ALT (7-52) U/L Alkaline Phosphatase (34-104) U/L Troponin I (<0.04) ng/mL B-Natriuretic Peptide 128 H ( - 100) pg/mL Total Protein (6.4-8.9) g/dL Albumin (3.2-5.2) g/dL Globulin (2-4) g/dL Albumin/Globulin Ratio (1-3) Result Diagrams: 04/07/17 07:07 04/07/17 07:07 Lab Statement: Any lab studies that have been ordered have been reviewed, and results considered in the medical decision making process. - Radiology CXR Xray Interpretation: Positive (See Comments) - Interval worsening of patchy density at the bilateral lower lungs which could represent pneumonia in the correct clinical setting. Radiology Interpretation Completed By: Radiologist Course/Dx - Course Assessment/Plan: 71M presents to the ED BIB with SOB since 530 this morning. Pt states that his SOB began while getting up this morning and is aggravated by upright position and alleviated by supine position. Pt notes wheezing. Pt denies CP, fever, chills, or cough. Pt denies direct trauma. PMHx includes Afib , CHF, COPD, h/o [place], chronic lower extremity edema, and fungal infection in his lung on the L side. Pt is a former smoker. Pt is on 4L home O2. Pt takes Lasix BID and Eliquis. CXR reveals Interval worsening of patchy density at the bilateral lower lungs which could represent pneumonia in the correct clinical setting. Bloodwork reveals WBC 13.6, RBC 3.78, Hgb 10.6, Hct 33, RDW 19, Plt count 530, Lymph % 6.8, [place] % 15.3, Absolute neuts 10.5, absolute lymphs 0.9, absolute monos 2.1, INR 1.44, ABG pO2 79, ABG O2 Sat 94.2, ABG base excess 2.3, Sodium 124, Potassium 6.1, Chloride 89, BUN/Creatinine 32.4, AlkPhos 118, Troponin 0.04, BNP 128, Albumin/Globulin 0.9. In the ED course the patient was given albuterol, Lasiz, rocephin, solu-medrol, and Zithromax. Dr. Webb, hospitalist, was consulted to discuss patient care. [place] [facility] Pt is agreeable with this plan. pt was not administered IV fluid because the patient presented with increased edema. - Diagnoses Differential Diagnosis/HQI/PQRI: Positive: CHF, COPD Exacerbation, [place], Pneumonia Provider Diagnoses: acute dyspnea, Pneumonia, CHF (congestive heart failure) - Physician Notifications Discussed Care of Patient With: Briana Webb Time Discussed With Above Provider: 08:18 Instructed by Provider To: Other - Discussed patient care. Came to see the patient. - Critical Care Time Critical Care Time: 30-74 min - 30 minutes Discharge - Discharge Plan Condition: Fair Disposition: ADMITTED TO [facility] The documentation as recorded by the Christine davis Thomas accurately reflects the service I personally performed and the decisions made by , Austin Lockhart MD.
[2017-04-07] MEDS: Enoxaparin(*) 80 MG/0.8 ML SYR SUBCUT SCH (15:30)
[2017-04-07] MEDS: oxyCODONE/Acetamin 5/325 MG* TAB PO PRN (16:34)
[2017-04-07] MEDS: Warfarin TAB(*) 5 MG PO SCH ×2 (17:29→18:12)
[2017-04-07] MEDS: Atorvastatin* 20 MG TAB PO SCH ×2 (17:29→17:47)
[2017-04-07 17:46] LABS: Potassium 5.2 mmol/L (3.5-5.0)
[2017-04-07 17:49] LABS: Troponin I 0.03 ng/mL (<0.04)
[2017-04-07 20:50] LABS: Urine Bilirubin Negative (Negative); Urine Glucose Negative (Negative); Urine Nitrite Negative (Negative)
[2017-04-07] MEDS: VORICONAZOLE 50 MG PO SCH (20:50)
[2017-04-07] MEDS: Vancomycin(*) 1,000 MG in NS 0.9% 250 ML* 250 ML IVPB SCH (22:31)
--- NOTE | 2017-04-07 23:24 | CONS ---
CONSULTATION REPORT: DATE OF CONSULTATION: 04/07/17 REQUESTING PHYSICIAN: Dr. Webb. CONSULTING SERVICE: Infectious Disease. REASON FOR CONSULTATION: Pneumonia. IMPRESSION: 1. Acute on chronic respiratory failure, hypoxemia, present on admission. 2. Right lower lung field pneumonia, suspect bacterial in the setting of recent rib fractures and splinting. He denies aspiration symptoms, but that is also a possibility. 3. 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 4. Recent diagnosis of pulmonary embolus, on Xarelto. 5. Chronic obstructive pulmonary disease, requiring supplemental oxygen at home. RECOMMENDATIONS: 1. Continue broad-spectrum antibiotics as you have done. 2. We will get a sputum and blood cultures to find the organism. He is improving, so we will not plan to alter his regimen at this point. 3. Given the interaction between voriconazole and his oral anticoagulant, I would recommend changing to Coumadin, so that his therapy could be monitored and understand actual anticoagulation while on voriconazole. HISTORY OF PRESENT ILLNESS: This is a 71-year-old male with severe COPD, admitted with progressive cough and dyspnea at rest. He was feeling well until end of last week. He developed severe cough, right-sided chest pain. CT was done on that showed acute pulmonary embolism in the left upper lobe, advanced emphysema, compression fractures, bilateral rib fractures. He was started on oral anticoagulant. He returns now with progressive cough and dyspnea. He has had no fevers, chills, or sweats. His appetite has been nonexistent. His energy has been very low. He has been sleeping 20 hours of the day. He is dyspneic at rest. He was on BiPAP overnight. After arriving here, a chest x-ray was done this morning that showed bilateral lower lung patchy density. He has been afebrile. He is tachypneic. He is off BiPAP now, on high-flow nasal cannula. His white count was 13,000 this morning. PAST MEDICAL HISTORY: 1. Severe COPD, requiring supplemental oxygen at home. 2. Invasive pulmonary aspergillosis. 3. Coronary artery disease. 4. Hypertension. 5. Hyperlipidemia. 6. Paroxysmal atrial fibrillation. 7. History of prostate cancer, status post prostatectomy. 8. GI bleed, December 2016. 9. Status post tonsillectomy. MEDICATIONS: 1. Aspirin. 2. Lipitor. 3. Cholecalciferol. 4. Flexeril. 5. Enoxaparin. 6. Cefepime 1 g every 12 hours. 7. Omeprazole. 8. Spiriva. 9. Vancomycin 1 g every 8 hours. 10. Voriconazole 200 mg by mouth twice daily. 11. Warfarin 5 mg a day. 12. Amlodipine. 13. Vicodin. ALLERGIES: No known drug allergies. FAMILY HISTORY: No recurrent infections or tuberculosis. SOCIAL HISTORY: Lives in [place]. 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 Lives with his . No sick contacts. REVIEW OF SYSTEMS: All negative except as noted above. PHYSICAL EXAM: Vital Signs: Temperature 37, heart rate 90, respiratory rate 20 , blood pressure 122/84. General: He is awake, not in distress. He does appear dyspneic. Neurologic: He is oriented x3, follows all commands. HEENT: There is no conjunctival hemorrhage. Oropharynx without lesions. Neck: Neck is supple without nuchal rigidity. Lymph Nodes: There is no inguinal, axillary, or epitrochlear lymphadenopathy. Heart: Regular and tachycardic without murmurs. Lungs: There are right greater than left lower lung field rhonchi and at the right base. There is prolonged expiratory phase. There is no wheeze or rales. Abdomen: Soft, nontender, and nondistended. Skin: There is no rash or splinter hemorrhages. Musculoskeletal: There is no spine tenderness to palpation. No joint synovitis. DIAGNOSTIC STUDIES/LAB DATA: Creatinine is 0.7. Troponin 0.04. White blood cell count 13, hemoglobin 10, platelets 530,000. Please see impression and recommendations outlined above, which I have discussed with Dr. Webb. Thank you for asking me to see Mr. Celis in consultation. [id number]/[facility] #: [id number] [facility] CENTERMainor
--- NOTE | 2017-04-08 01:47 | HP ---
CC: Dr. Garcia; Dr. Means; Dr. Israel; Dr. Salgado; Dr. Gonzalez * HISTORY AND PHYSICAL: DATE OF ADMISSION: 04/07/17 PRIMARY CARE PROVIDER: Dr. Garcia. INFECTIOUS DISEASE SPECIALIST: Dr. Means. PULMONOLOGISTS: Dr. Israel and Dr. Salgado. FILLER SIFTER HELPER: Dr. Gonzalez. CHIEF COMPLAINT: Shortness of breath. HISTORY OF PRESENT ILLNESS: Mr. Celis is a 71-year-old male who was recently hospitalized from 03/31/17 through 04/02/17 where he was diagnosed with a small burden of acute pulmonary emboli at the left upper lobe. Advanced emphysema was also noted at that time. The patient also has a history of invasive aspergillosis and has been treated under Dr. Means's care for this with voriconazole. The patient states that following his hospitalization, his breathing never really improved. He continued to have gurgling respirations. The patient's states that in general, he uses 3.5 L of oxygen continuously ; however, over the couple of days, she increased this to 4 L and had a difficult time maintaining his saturations at even 88%. The patient denies any significant cough or sputum production. He denies any fevers or chills. Because of the persistent shortness of breath, hypoxia, and gurgling respirations, the patient presented to the emergency room for evaluation. PAST MEDICAL HISTORY: 1. COPD with chronic respiratory failure, on 3.5 L of O2 continuously. 2. Invasive pulmonary aspergillosis. 3. Coronary artery disease. 4. Hypertension. 5. Hyperlipidemia. 6. Paroxysmal atrial fibrillation. 7. Remote history of prostate cancer, status post prostatectomy. PAST SURGICAL HISTORY: 1. Tonsillectomy. 2. Prostatectomy. ALLERGIES: SIMVASTATIN and ADHESIVE TAPE. MEDICATIONS: 1. Xarelto 15 mg p.o. b.i.d. 2. Potassium chloride 20 mEq p.o. daily. 3. Omeprazole 20 mg p.o. b.i.d. 4. Singulair 10 mg p.o. daily. 5. Xopenex 1 neb inhaled 4 times a day p.r.n. shortness of breath. 6. Lasix 20 mg p.o. b.i.d. 7. Flexeril 10 mg p.o. t.i.d. p.r.n. pain. 8. Vitamin D 1000 units p.o. daily. 9. Symbicort 160/4.5 two puffs inhaled twice daily. 10. Lipitor 20 mg p.o. q.h.s. 11. Aspirin 81 mg p.o. daily. 12. Combivent 2 puffs inhaled 4 times a day p.r.n. shortness of breath. 13. Albuterol 2 puffs inhaled 4 times a day p.r.n. shortness of breath. 14. Albuterol 1 neb inhaled 4 times a day p.r.n. shortness of breath. 15. Percocet 5/325 one tab p.o. q.4 hours p.r.n. pain. 16. Guaifenesin ER 1200 mg p.o. b.i.d. 17. Amlodipine 10 mg p.o. daily. 18. Voriconazole 200 mg p.o. b.i.d. 19. Spiriva 1 puff inhaled daily. FAMILY HISTORY: The patient's mother from [place]. The patient's father from a CVA. There is no family history of diabetes. SOCIAL HISTORY: The patient is a former smoker. He smoked 1 pack per day, quitting in 1997. The patient denies any alcohol use. 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 He lives with his , Brenda Celis , who is his healthcare proxy. REVIEW OF SYSTEMS: A full 11-system review of systems is obtained. Pertinent positives and negatives are as per HPI and otherwise negative. PHYSICAL EXAMINATION VITAL SIGNS: Blood pressure 114/85, pulse 85, respirations 17, temperature 99.3 , O2 sat 95% on 50% via BiPAP. HEENT: Pupils are equal. They are round. Extraocular muscles are intact. Oropharynx is clear. It is difficult to inspect through the BiPAP mass. There is no submandibular, cervical, or supraclavicular adenopathy. Thyroid is not enlarged. No thyroid nodules are noted. PULMONARY: Breath sounds are diminished in all lung jules. There are few bibasilar crackles. CARDIAC: Normal S1, S2. Regular rate and rhythm. I do not appreciate any murmurs. There is trace 1+ pitting edema in the bilateral ankles. ABDOMEN: Bowel sounds are present. Abdomen is soft, nontender, nondistended. MUSCULOSKELETAL: There is no cyanosis or clubbing of the digits. There is full active range of motion of all 4 extremities. SKIN: Warm and dry. There are no rashes. NEURO: Cranial nerves II through XII are grossly intact. Sensation is intact to light touch throughout. Strength is 5/5 and symmetric in both upper and lower extremities bilaterally. PSYCH: The patient is alert. He is oriented x3. Affect appears appropriate. DIAGNOSTIC STUDIES/LAB DATA: WBC 13.6, hemoglobin 10.6, hematocrit 33, platelets 530. INR 1.44. ABG, 7.41, pCO2 43, pO2 79 on FiO2 of 50%. Sodium 124, potassium 6.1, chloride 89, CO2 26, BUN 24, creatinine 0.74, glucose 92, lactic acid 1.2, calcium 9.4, bilirubin 0.4, AST 33, ALT 24, alk phos 118, troponin 0.04, BNP 128, albumin 3.2. EKG reveals normal sinus rhythm with no acute ST-T wave abnormalities. Chest x-ray, interval worsening of patchy density at the bibasilar lower lungs, which could represent pneumonia in the current clinical setting. ASSESSMENT AND PLAN: Mr. Celis is a 71-year-old male with complicated pulmonary history including chronic obstructive pulmonary disease with chronic hypoxic respiratory failure requiring 3.5 L of O2 continuously at home, invasive aspergillosis, and recent diagnosis of left-sided pulmonary embolism, who presents to the emergency room with complaints of progressive shortness of breath, hypoxia, and gurgling respirations. 1. Acute hypoxic respiratory failure. The patient is much improved after being started on BiPAP. The work of breathing is much better as is his oxygen saturation. The etiology of the patient's respiratory failure is not completely clear, though we will go ahead and treat him for both possible congestive heart failure exacerbation as well as possible bibasilar pneumonia. At this point, the patient will be started on vancomycin and cefepime for healthcare-associated pneumonia. ID consultation will be requested given his history of invasive pulmonary aspergillosis and possible pneumonia. The patient will be admitted to the intensive care unit and continued on BiPAP. 2. Multiple compression fractures and rib fractures. This is felt to be related to cough with suspected osteoporosis from long-term prednisone use. 3. Hyperkalemia. The patient will have a repeat BMP this afternoon. His potassium supplementation will be held. He received Lasix in the emergency room. 4. Chronic obstructive pulmonary disease. There are no signs of exacerbation at this time as there is no wheezing and his breath sounds do not sound tight. He will be continued on his usual home inhaled medications. 5. Invasive pulmonary aspergillosis. The patient will be continued on his usual dose of voriconazole. 6. Left-sided pulmonary embolism. The patient was started on Xarelto for treatment of his pulmonary embolism; however, this interacts with voriconazole and is not recommended that these 2 medications be given together. The patient will be started on Lovenox and bridged to Coumadin. 7. Hypertension. The patient's blood pressure is under good control. He will be maintained on his usual home medication regimen. 8. Hyperlipidemia. Continue Lipitor. 9. DVT prophylaxis. According to the Adult Thrombosis Prophylaxis Risk Factor Assessment Guide, the patient has a total risk factor score of 6 making him the highest risk. Lovenox will be utilized as a DVT prophylaxis. 10. Code status is full. Again, the patient indicates that his would be his healthcare proxy. TIME SPENT: 65 minutes were spent admitting this patient. [id number]/[facility] #: [id number] NIKKY
[2017-04-08] MEDS: Enoxaparin(*) 80 MG/0.8 ML SYR SUBCUT SCH ×2 (03:49→15:24)
[2017-04-08] MEDS: Vancomycin(*) 1,000 MG in NS 0.9% 250 ML* 250 ML IVPB SCH ×3 (06:24→23:02)
[2017-04-08] MEDS: oxyCODONE/Acetamin 5/325 MG* TAB PO PRN ×2 (07:26→15:23)
[2017-04-08] MEDS: Cefepime(*) 1 GM in NS 0.9% 50 ML* 50 ML IVPB SCH ×2 (07:58→20:59)
[2017-04-08] MEDS: Montelukast Sodium TAB* 10 MG PO SCH (08:24)
[2017-04-08] MEDS: VORICONAZOLE 50 MG PO SCH ×2 (08:24→20:55)
[2017-04-08] MEDS: Aspirin EC Low Dose* 81 MG TAB.EC PO SCH (08:24)
[2017-04-08] MEDS: Omeprazole CAP* 20 MG PO SCH ×2 (08:24→20:58)
[2017-04-08] MEDS: Cholecalciferol TAB* 1000 UNITS PO SCH (08:25)
[2017-04-08] MEDS: guaiFENesin ER TAB 600 MG PO SCH ×2 (08:25→20:59)
[2017-04-08] MEDS: amLODIPine TAB* 5 MG PO SCH (08:25)
[2017-04-08] MEDS: Tiotropium CAP.INH* CAP.INH/18 MCG INH SCH (09:09)
[2017-04-08] MEDS: Mometasone/Formoter 200/5 MDI INH SCH ×2 (09:09→19:49)
--- NOTE | 2017-04-08 09:56 | ECHO ---
Patient: MARY WARNER [facility] Rec#: [id number] : 1945 Date: 04/08/2017 Age: 71y Height: 167.64 cm / 66.0 in Weight: 69.85 kg / 153.9 lbs Sex: M BSA: 1.79 Room#: [facility] Admit Date#: 04/07/2017 Type: Inpatient Referring: Briana Webb DO Reading: Natalia Gonzalez MD Second Rigger: Carol NiceRC CC: Jelly Callahan MD Transthoracic Echocardiogram Indication: Shortness of breath BP: 127/54 HR: 98 Rhythm: NSR with PVCs Findings History: A-fib, CHF, HTN, HLD, COPD, former smoker, invasive pulmonary aspergillosis, 3.5 L home O2, cardiac cath 02/21 without intervention, recent pulmonary emboli. Technical Comments: The study quality is fair. The study is technically limited due to poor parasternal windows. The study is technically limited due to the patient's history of COPD. Completed at 0840. Left Ventricle: The left ventricular chamber size is normal. Mild concentric left ventricular hypertrophy is observed. The left ventricle appears hyperdynamic. The estimated ejection fraction is 60-65%. There is septal flattening of the interventricular septum consistent with right ventricular volume or pressure overload. Abnormal left ventricular diastolic function is observed. There is an E to A reversal in the mitral valve flow pattern suggestive of diastolic dysfunction. Left Atrium: The left atrial chamber size is normal. Right Ventricle: The right ventricle wall thickness is mildly increased. The right ventricle is moderately dilated. The right ventricular global systolic function is low normal. Right Atrium: The right atrium is mildly dilated. Aortic Valve: The aortic valve is trileaflet. The aortic valve leaflets are mildly thickened. There is evidence of aortic sclerosis without stenosis. There is a trace of aortic regurgitation. There is no evidence of aortic stenosis. Mitral Valve: The mitral valve leaflets are mildly thickened. There is a trace of mitral regurgitation. There is no evidence of mitral stenosis. Tricuspid Valve: The tricuspid valve leaflets are normal. There is trace tricuspid regurgitation. The right ventricular systolic pressure is estimated at 13 mmHg. There is evidence that pulmonary hypertension may be underestimated. There is no tricuspid stenosis. Pulmonic Valve: The pulmonic valve structure is not well visualized. There is a trace pulmonic regurgitation. There is no pulmonic stenosis. Pericardium: There is no significant pericardial effusion. A pericardial fat pad is visualized. Aorta: There is no dilatation of the ascending aorta. The aortic arch is not well visualized. There is mild dilatation of the aortic root. Pulmonary Artery: The main pulmonary artery is not well visualized. Venous: The inferior vena cava appears normal in size. There is a greater than 50% respiratory change in the inferior vena cava dimension. Conclusions The study quality is fair, images c/w COPD. Mild concentric left ventricular hypertrophy is observed. The left ventricle appears hyperdynamic. LV chamber diameter appears small, but measurement is normal. The visually estimated ejection fraction is 60-65%. There is septal flattening of the interventricular septum consistent with right ventricular volume or pressure overload. Abnormal left ventricular diastolic function is observed. The right ventricle wall thickness is mildly increased. The right ventricle is moderately dilated and systolic function is low normal. There is evidence of aortic sclerosis. There is a trace of aortic regurgitation. There is a trace of mitral regurgitation. There is trace tricuspid regurgitation. PA pressure may be underestimated. Compared with prior echo of 11/05/16, LV function not significantly changed, RV findings new, valve function is stable. Measurements Name Value Normal Range RVIDd (AP) 2D 4.2 cm (0.9 - 2.6) RVDdMajor (2D) 5.5 cm (2.2 - 4.4) RVAW (2D) 0.8 cm (0.2 - 0.5) RAd ISD 4CH 5 cm (3.4 - 4.9) RA (A4C)W 5.2 cm (2.9 - 4.6) IVSd (2D) 1.1 cm (0.6 - 1) LVPWd (2D) 1.1 cm (0.6 - 1) LVIDd (2D) 4.2 cm (3.6 - 5.4) LVIDs (2D) 3.4 cm - LV FS (2D) 19 % (25 - 45) Aortic Annulus 2.4 cm (1.4 - 2.6) Ao root diameter (2D) 3.7 cm (2.1 - 3.5) Ascending Ao 3.1 cm (2.1 - 3.4) LA dimension (AP) 2D 3.6 cm (2.3 - 3.8) LAd ISD 4CH 4.7 cm (2.9 - 5.3) LA ISD 4CH W 4.3 cm (2.5 - 4.5) Name Value Normal Range LA ESV SP 4CH (A/L) 51 ml - LA ESV SP 2CH (A/L) 54 ml - LA ESV BP (A/L) 57 ml - LA ESV BP (A/L) index 31.57 ml/m2 - LA ESV SP 4CH (MOD) 49 ml - LA ESV SP 2CH (MOD) 52 ml - Name Value Normal Range MV E-wave Vmax 0.74 m/sec - MV deceleration time 148.8 msec - MV A-wave Vmax 1 m/sec - MV E:A ratio 0.74 ratio - LV septal e' Vmax 0.1 m/sec - LV lateral e' Vmax 0.17 m/sec - LV E:e' septal ratio 7.4 ratio - LV E:e' lateral ratio 4.35 ratio - Name Value Normal Range AV Vmax 1.8 m/sec - AV VTI 28.4 cm - AV peak gradient 12.96 mmHg - AV mean gradient 7.17 mmHg - LVOT diameter 2 cm - LVOT Vmax 1.3 m/sec - LVOT VTI 23.68 cm - LVOT peak gradient 6.46 mmHg - LVOT mean gradient 2.86 mmHg - SOURAV (continuity Vmax) 2.2 cm2 - SOURAV (continuity VTI) 2.6 cm2 - Name Value Normal Range TR Vmax 1.6 m/sec - TR peak gradient 10 mmHg - RAP 3 mmHg - RVSP 13 mmHg - IVC diameter 1.4 cm - Name Value Normal Range PV Vmax 0.96 m/sec - PV peak gradient 3.69 mmHg -
[2017-04-08] MEDS ORDERED: Spiriva Inhaler DEVICE* 1 EACH DEVICE INH ONE (10:00)
[2017-04-08 10:49] LABS: Hematocrit 31 % (42-52); Hemoglobin 10.1 g/dl (14.0-18.0); Mean Corpuscular HGB Conc 33 g/dl (31-36); Mean Corpuscular Hemoglobin 29 pg (27-31); Mean Corpuscular Volume 87 fL (80-94); Mean Platelet Volume 7 um3 (7.4-10.4); Red Blood Count 3.53 10^6/ul (4.0-5.4); Red Cell Distribution Width 19 % (10.5-15); White Blood Count 10.6 10^3/ul (3.5-10.8)
[2017-04-08 10:50] LABS: Add Diff/Slide Review? Slide Review Added; Comments Flag Yes
[2017-04-08 11:25] LABS: BUN/Creatinine Ratio 39.3 (8-20); Calcium 8.4 mg/dL (8.6-10.3); EGFR African American 116.2 (>60); EGFR Non-African American 90.3 (>60); Potassium 5.5 mmol/L (3.5-5.0)
[2017-04-08] MEDS ORDERED: Sodium Polystyrene ORAL.SOL* 15 GM/60 ML BTL PO ONE (13:35)
[2017-04-08] MEDS ORDERED: Vancomycin Trough Check NOTE FOLLOW UP ONE (14:00)
--- NOTE | 2017-04-08 15:08 | PN ---
Subjective Date of Service: 04/08/17 Interval History: Pt is feeling better today. He started to cough up some brownish sputum. He is using the flutter valve with good response. His SOB is improved. He wants to get up and walk today. Objective Active Medications: Amlodipine Besylate (Norvasc Tab*) 10 mg PO DAILY COUNTS INCLUDE 234 BEDS AT THE [facility] Last Admin: 04/08/17 08:25 Dose: 10 mg Aspirin (Aspirin Ec Low Dose*) 81 mg PO DAILY COUNTS INCLUDE 234 BEDS AT THE [facility] Last Admin: 04/08/17 08:24 Dose: 81 mg Atorvastatin Calcium (Lipitor*) 20 mg PO QPM COUNTS INCLUDE 234 BEDS AT THE [facility] Last Admin: 04/07/17 17:47 Dose: 20 mg Cholecalciferol (Vitamin D Tab*) 1,000 units PO DAILY COUNTS INCLUDE 234 BEDS AT THE [facility] Last Admin: 04/08/17 08:25 Dose: 1,000 units Cyclobenzaprine HCl (Flexeril Tab*) 10 mg PO TID PRN PRN Reason: PAIN Enoxaparin Sodium (Lovenox(*)) 70 mg SUBCUT Q12H COUNTS INCLUDE 234 BEDS AT THE [facility] Last Admin: 04/08/17 03:49 Dose: 70 mg Guaifenesin (Mucinex*) 1,200 mg PO BID COUNTS INCLUDE 234 BEDS AT THE [facility] Last Admin: 04/08/17 08:25 Dose: 1,200 mg Cefepime HCl 1 gm/ Sodium (Chloride) 50 mls @ 100 mls/hr IVPB Q12H COUNTS INCLUDE 234 BEDS AT THE [facility] Last Admin: 04/08/17 07:58 Dose: 100 mls/hr Vancomycin HCl 1,000 mg/ (Sodium Chloride) 250 mls @ 166.667 mls/hr IVPB Q8H COUNTS INCLUDE 234 BEDS AT THE [facility] Last Admin: 04/08/17 13:18 Dose: 166.667 mls/hr Mometasone Furoate/Formoterol Fumar (Dulera 200/5 Mdi*) 2 puff INH BID COUNTS INCLUDE 234 BEDS AT THE [facility] PRN Reason: Protocol Last Admin: 04/08/17 09:09 Dose: 2 puff Montelukast Sodium (Singulair Tab*) 10 mg PO DAILY COUNTS INCLUDE 234 BEDS AT THE [facility] Last Admin: 04/08/17 08:24 Dose: 10 mg Omeprazole (Prilosec Cap*) 20 mg PO BID COUNTS INCLUDE 234 BEDS AT THE [facility] Last Admin: 04/08/17 08:24 Dose: 20 mg Oxycodone/Acetaminophen (Percocet 5/325 Tab*) 1 tab PO Q4H PRN PRN Reason: Pain Last Admin: 04/08/17 07:26 Dose: 1 tab Pharmacy Consult (Vancomycin Per Pharmacy*) 1 note FOLLOW UP . PRN PRN Reason: PER PROTOCOL Pharmacy Profile Note (Coumadin Daily Reminder*) 0 note FOLLOW UP 1700 COUNTS INCLUDE 234 BEDS AT THE [facility] Last Admin: 04/07/17 17:32 Dose: 1 note Pharmacy Profile Note (Vancomycin Trough Check) 1 note FOLLOW UP ONCE ONE Stop: 04/10/17 05:31 Tiotropium [place] (Spiriva Cap.Inh*) 1 cap INH DAILY COUNTS INCLUDE 234 BEDS AT THE [facility] Last Admin: 04/08/17 09:09 Dose: 1 cap Voriconazole (Vfend (Nf)) 200 mg PO BID COUNTS INCLUDE 234 BEDS AT THE [facility] PRN Reason: Protocol Last Admin: 04/08/17 08:24 Dose: 200 mg Warfarin Sodium (Coumadin Tab(*)) 5 mg PO DAILY@1700 COUNTS INCLUDE 234 BEDS AT THE [facility] PRN Reason: Protocol Last Admin: 04/07/17 18:12 Dose: 5 mg Vital Signs 04/07/17 04/07/17 04/07/17 16:00 16:34 17:00 Temperature Pulse Rate 97 95 Respiratory 19 18 19 Rate Blood Pressure 140/58 (mmHg) O2 Sat by Pulse 94 96 Oximetry 04/07/17 04/07/17 04/07/17 17:10 17:27 17:51 Temperature 99.9 F Pulse Rate 92 Respiratory 19 18 Rate Blood Pressure 131/59 (mmHg) O2 Sat by Pulse 95 Oximetry 04/07/17 04/07/17 04/07/17 18:00 19:00 20:00 Temperature 100.0 F Pulse Rate 98 90 94 Respiratory 21 17 17 Rate Blood Pressure 147/88 148/131 129/75 (mmHg) O2 Sat by Pulse 92 95 94 Oximetry 04/07/17 04/07/17 04/07/17 21:00 22:00 23:00 Temperature 100.3 F 100 F 99.9 F Pulse Rate 86 86 96 Respiratory 15 16 20 Rate Blood Pressure 136/62 133/91 128/51 (mmHg) O2 Sat by Pulse 94 92 91 Oximetry 04/08/17 04/08/17 04/08/17 00:00 00:01 00:09 Temperature 100.2 F Pulse Rate 78 80 79 Respiratory 13 13 12 Rate Blood Pressure 129/63 (mmHg) O2 Sat by Pulse 97 98 92 Oximetry 04/08/17 04/08/17 04/08/17 01:00 02:00 02:01 Temperature 99.9 F 99.5 F Pulse Rate 74 90 82 Respiratory 10 16 15 Rate Blood Pressure 100/51 132/55 (mmHg) O2 Sat by Pulse 90 93 93 Oximetry 04/08/17 04/08/17 04/08/17 03:00 03:52 03:56 Temperature 99.8 F 98.6 F Pulse Rate 80 Respiratory 11 19 Rate Blood Pressure 120/50 (mmHg) O2 Sat by Pulse 96 Oximetry 04/08/17 04/08/17 04/08/17 04:00 05:00 06:00 Temperature 98.8 F 99.2 F Pulse Rate 82 77 Respiratory 14 9 17 Rate Blood Pressure 131/71 108/58 127/54 (mmHg) O2 Sat by Pulse 95 95 Oximetry 04/08/17 04/08/17 04/08/17 07:00 07:26 07:58 Temperature 99.1 F Pulse Rate 92 Respiratory 20 21 Rate Blood Pressure 106/60 (mmHg) O2 Sat by Pulse 95 Oximetry 04/08/17 04/08/17 04/08/17 08:00 08:55 09:00 Temperature Pulse Rate 93 102 Respiratory 18 20 20 Rate Blood Pressure 130/63 (mmHg) O2 Sat by Pulse 94 88 Oximetry 04/08/17 04/08/17 04/08/17 09:01 09:08 09:10 Temperature Pulse Rate 104 108 Respiratory 21 21 18 Rate Blood Pressure 113/59 (mmHg) O2 Sat by Pulse 91 92 Oximetry 04/08/17 04/08/17 04/08/17 10:00 10:01 11:00 Temperature Pulse Rate 87 97 Respiratory 16 16 17 Rate Blood Pressure 109/60 (mmHg) O2 Sat by Pulse 92 90 Oximetry 04/08/17 04/08/17 04/08/17 11:44 11:52 12:00 Temperature Pulse Rate 92 95 Respiratory 17 17 19 Rate Blood Pressure 90/71 (mmHg) O2 Sat by Pulse 91 89 Oximetry 04/08/17 04/08/17 04/08/17 12:04 13:00 13:20 Temperature 98.7 F Pulse Rate 99 Respiratory 19 20 Rate Blood Pressure 112/90 (mmHg) O2 Sat by Pulse 87 Oximetry 04/08/17 04/08/17 14:00 14:12 Temperature Pulse Rate Respiratory 23 20 Rate Blood Pressure 117/68 (mmHg) O2 Sat by Pulse Oximetry Oxygen Devices in Use Now: Nasal Cannula - 4L-92% Appearance: Elderly male sitting up in a chair, NAD Eyes: No Scleral Icterus Ears/Nose/Mouth/Throat: Mucous Membranes Moist Respiratory: Symmetrical Chest Expansion and Respiratory Effort, Clear to Auscultation - crackles L lower lobe Cardiovascular: NL Sounds; No Murmurs; No JVD, RRR, No Edema Abdominal: NL Sounds; No Tenderness; No Distention Extremities: No Clubbing, Cyanosis Skin: No Rash or Ulcers, No Nodules or Sclerosis Neurological: Alert and Oriented x 3 Result Diagrams: 04/08/17 10:35 04/08/17 10:35 Additional Lab and Data: Lab Results 04/07/17 04/07/17 04/07/17 Range/Units 07:07 07:07 07:07 WBC 13.6 H (3.5-10.8) 10^3/ul RBC 3.78 L (4.0-5.4) 10^6/ul Hgb 10.6 L (14.0-18.0) g/dl Hct 33 L (42-52) % MCV 88 (80-94) fL MCH 28 (27-31) pg MCHC 32 (31-36) g/dl RDW 19 H (10.5-15) % Plt Count 530 H D (150-450) 10^3/ul MPV 8 (7.4-10.4) um3 Neut % (Auto) 76.8 (38-83) % Lymph % (Auto) 6.8 L (25-47) % Campbell % (Auto) 15.3 H (1-9) % Eos % (Auto) 1.0 (0-6) % Baso % (Auto) 0.1 (0-2) % Absolute Neuts (auto) 10.5 H (1.5-7.7) 10^3/ul Absolute Lymphs (auto) 0.9 L (1.0-4.8) 10^3/ul Absolute Monos (auto) 2.1 H (0-0.8) 10^3/ul Absolute Eos (auto) 0.1 (0-0.6) 10^3/ul Absolute Basos (auto) 0 (0-0.2) 10^3/ul Absolute Nucleated RBC 0.01 10^3/ul Nucleated RBC % 0 INR (Anticoag Therapy) (0.89-1.11) APTT (26.0-36.3) seconds Patient Temperature ABG pH (7.35-7.45) ABG pCO2 (35-45) mmHg ABG pO2 (80-100) mmHg ABG HCO3 (19-31) mmol/L ABG O2 Saturation (95-98) % ABG Base Excess (-2.0-2.0) Respiration Rate O2 Delivery Device Ventilator Type Vent Mode FiO2 Inspiratory Time PEEP Pressure Support Pressure Control EPAP IPAP BiPAP Sodium 124 L (133-145) mmol/L Potassium 6.1 H* (3.5-5.0) mmol/L Chloride 89 L (101-111) mmol/L Carbon Dioxide 26 (22-32) mmol/L Anion Gap 9 (2-11) mmol/L BUN 24 (6-24) mg/dL Creatinine 0.74 (0.67-1.17) mg/dL Est GFR ( Amer) 134.5 (>60) Est GFR (Non-Af Amer) 104.6 (>60) BUN/Creatinine Ratio 32.4 H (8-20) Glucose 92 (70-100) mg/dL Lactic Acid 1.2 (0.5-2.0) mmol/L Calcium 9.4 (8.6-10.3) mg/dL Total Bilirubin 0.40 (0.2-1.0) mg/dL AST 33 (13-39) U/L ALT 24 (7-52) U/L Alkaline Phosphatase 118 H (34-104) U/L Troponin I 0.04 H* (<0.04) ng/mL B-Natriuretic Peptide ( - 100) pg/mL Total Protein 6.8 (6.4-8.9) g/dL Albumin 3.2 (3.2-5.2) g/dL Globulin 3.6 (2-4) g/dL Albumin/Globulin Ratio 0.9 L (1-3) 04/07/17 04/07/17 04/07/17 Range/Units 07:07 07:07 07:30 WBC (3.5-10.8) 10^3/ul RBC (4.0-5.4) 10^6/ul Hgb (14.0-18.0) g/dl Hct (42-52) % MCV (80-94) fL MCH (27-31) pg MCHC (31-36) g/dl RDW (10.5-15) % Plt Count (150-450) 10^3/ul MPV (7.4-10.4) um3 Neut % (Auto) (38-83) % Lymph % (Auto) (25-47) % Campbell % (Auto) (1-9) % Eos % (Auto) (0-6) % Baso % (Auto) (0-2) % Absolute Neuts (auto) (1.5-7.7) 10^3/ul Absolute Lymphs (auto) (1.0-4.8) 10^3/ul Absolute Monos (auto) (0-0.8) 10^3/ul Absolute Eos (auto) (0-0.6) 10^3/ul Absolute Basos (auto) (0-0.2) 10^3/ul Absolute Nucleated RBC 10^3/ul Nucleated RBC % INR (Anticoag Therapy) 1.44 H (0.89-1.11) APTT 33.5 (26.0-36.3) seconds Patient Temperature Not Reportable ABG pH 7.41 (7.35-7.45) ABG pCO2 43 (35-45) mmHg ABG pO2 79 L (80-100) mmHg ABG HCO3 26.6 (19-31) mmol/L ABG O2 Saturation 94.2 L (95-98) % ABG Base Excess 2.3 H (-2.0-2.0) Respiration Rate 12 O2 Delivery Device bipap Ventilator Type Not Reportable Vent Mode s/t FiO2 50 Inspiratory Time 1.0 PEEP Not Reportable Pressure Support Not Reportable Pressure Control Not Reportable EPAP 6 IPAP 12 BiPAP Not Reportable Sodium (133-145) mmol/L Potassium (3.5-5.0) mmol/L Chloride (101-111) mmol/L Carbon Dioxide (22-32) mmol/L Anion Gap (2-11) mmol/L BUN (6-24) mg/dL Creatinine (0.67-1.17) mg/dL Est GFR ( Amer) (>60) Est GFR (Non-Af Amer) (>60) BUN/Creatinine Ratio (8-20) Glucose (70-100) mg/dL Lactic Acid (0.5-2.0) mmol/L Calcium (8.6-10.3) mg/dL Total Bilirubin (0.2-1.0) mg/dL AST (13-39) U/L ALT (7-52) U/L Alkaline Phosphatase (34-104) U/L Troponin I (<0.04) ng/mL B-Natriuretic Peptide 128 H ( - 100) pg/mL Total Protein (6.4-8.9) g/dL Albumin (3.2-5.2) g/dL Globulin (2-4) g/dL Albumin/Globulin Ratio (1-3) Microbiology and Other Data: Microbiology 04/07/17 15:34 Gram Stain - Final Sputum Expectorated Sputum Culture - Preliminary Staphylococcus Aureus Assess/Plan/Problems-Billing Mr Celis is a 71 yo M with a h/o chronic hypoxic respiratory failure secondary to COPD on O2, 3.5L continuously, invasive pulmonary aspergillosis, recent dx for PE and CAD who presented to the ER with c/o progressive SOB, gurgling respirations and hypoxia. - Patient Problems (1) SOB (shortness of breath) Current Visit: Yes Status: Acute Code(s): R06.02 - SHORTNESS OF BREATH SNOMED Code(s): 594791047 Comment: Likely multifactorial secondary to baseline COPD, invasive pulmonary aspergillosis, newly diagnosed PE and now pna. SOB improved today after utilizing BiPAP yesterday. Will continue to follow his level of SOB. (2) Pneumonia Current Visit: Yes Status: Acute Code(s): J18.9 - PNEUMONIA, UNSPECIFIED ORGANISM SNOMED Code(s): 351628759 Comment: Continue vanco and cefepime for now. WBC improved today. He is coughing up brown sputum. His sputum grew S aureus-? colonization. (3) Hypoxia Current Visit: Yes Status: Acute Code(s): R09.02 - HYPOXEMIA SNOMED Code(s ): 205021446 Comment: Continue supplemental O2-the patient had acute on chronic hypoxic respiratory failure on admission-now resolved. (4) Hyponatremia Current Visit: Yes Status: Acute Code(s): E87.1 - HYPO-OSMOLALITY AND HYPONATREMIA SNOMED Code(s): 98863270 Comment: Na improved today. Will continue to follow. (5) Pulmonary embolism Current Visit: Yes Status: Acute Code(s): I26.99 - OTHER PULMONARY EMBOLISM WITHOUT ACUTE COR PULMONALE SNOMED Code(s): 52440151 Comment: Change to coumadin as xarelto and voriconazole interact and it is not recommended that they be administered together. Follow INR. (6) Troponin level elevated Current Visit: Yes Status: Acute Code(s): R74.8 - ABNORMAL LEVELS OF OTHER SERUM ENZYMES SNOMED Code(s): 123156160 Comment: Likely demand ischemia. Troponin has normalized after improvment in his respiratory distress. (7) Aspergillosis Current Visit: Yes Status: Acute Code(s): B44.9 - ASPERGILLOSIS, UNSPECIFIED SNOMED Code(s): 38022600 Comment: Continue voriconazole. Follow up with Dr. Means. (8) COPD (chronic obstructive pulmonary disease) Current Visit: Yes Status: Chronic Code(s): J44.9 - CHRONIC OBSTRUCTIVE PULMONARY DISEASE, UNSPECIFIED SNOMED Code(s): 93597977 Comment: No signs of exacerbation. Continue home inhaler regimen. (9) HTN (hypertension) Current Visit: Yes Status: Chronic Code(s): I10 - ESSENTIAL (PRIMARY) HYPERTENSION SNOMED Code(s): 17371913 Comment: BP is well controlled on amlodipine. Continue to monitor. (10) Atrial fibrillation Current Visit: Yes Status: Acute Code(s): I48.91 - UNSPECIFIED ATRIAL FIBRILLATION SNOMED Code(s): 28573271 Comment: In sinus at this time. Continue to monitor. (11) HLD (hyperlipidemia) Current Visit: Yes Status: Chronic Code(s): E78.5 - HYPERLIPIDEMIA, UNSPECIFIED SNOMED Code(s): 12582103 Comment: Continue lipitor. (12) DVT prophylaxis Current Visit: Yes Status: Acute Code(s): HZC9295 - SNOMED Code(s): 250337254 Comment: Lovenox bridging to coumadin (13) Full code status Current Visit: Yes Status: Acute Code(s): Z78.9 - OTHER SPECIFIED HEALTH STATUS SNOMED Code(s): 507225445
[2017-04-08] MEDS: Warfarin TAB(*) 5 MG PO SCH (17:56)
[2017-04-08] MEDS: Atorvastatin* 20 MG TAB PO SCH (17:56)
[2017-04-09] MEDS: oxyCODONE/Acetamin 5/325 MG* TAB PO PRN ×4 (00:02→21:35)
[2017-04-09] MEDS: Enoxaparin(*) 80 MG/0.8 ML SYR SUBCUT SCH ×2 (03:51→16:45)
[2017-04-09] MEDS: Vancomycin(*) 1,000 MG in NS 0.9% 250 ML* 250 ML IVPB SCH ×3 (06:08→21:34)
[2017-04-09 06:45] LABS: BUN/Creatinine Ratio 55.9 (8-20); Calcium 8.4 mg/dL (8.6-10.3); EGFR African American 148.3 (>60); EGFR Non-African American 115.3 (>60)
[2017-04-09 07:09] LABS: Hematocrit 32 % (42-52); Hemoglobin 10.3 g/dl (14.0-18.0); Mean Corpuscular HGB Conc 32 g/dl (31-36); Mean Corpuscular Hemoglobin 28 pg (27-31); Mean Corpuscular Volume 88 fL (80-94); Red Blood Count 3.65 10^6/ul (4.0-5.4); Red Cell Distribution Width 20 % (10.5-15)
[2017-04-09 07:14] LABS: Add Diff/Slide Review? Manual Diff Added; Comments Flag Yes
[2017-04-09 07:33] LABS: Immature Granulocytes 4 % (0-9); Metamyelocytes % 1 % (0-2); Myelocytes % 2 % (0-1); Neutrophil % 77 % (38-83)
[2017-04-09 07:35] LABS: Burr Cells 1+
[2017-04-09 07:39] LABS: White Blood Count 14.3 10^3/ul (3.5-10.8)
[2017-04-09 07:44] LABS: Mean Platelet Volume 8 um3 (7.4-10.4)
[2017-04-09] MEDS: Mometasone/Formoter 200/5 MDI INH SCH ×2 (07:49→19:43)
[2017-04-09] MEDS: Tiotropium CAP.INH* CAP.INH/18 MCG INH SCH (07:50)
--- NOTE | 2017-04-09 08:06 | PN ---
Subjective Date of Service: 04/09/17 Interval History: Pt is feeling about the same today as yesterday. He states it hurts to take a deep breath and cough but he has not had percocet since 2100 last evening. He states he is bringing up "a lot" of sputum. He has not had a BM since being admitted. He says he feels very weak and had a difficult time going from bed to chair. Objective Active Medications: Amlodipine Besylate (Norvasc Tab*) 10 mg PO DAILY [facility] Last Admin: 04/08/17 08:25 Dose: 10 mg Aspirin (Aspirin Ec Low Dose*) 81 mg PO DAILY [facility] Last Admin: 04/08/17 08:24 Dose: 81 mg Atorvastatin Calcium (Lipitor*) 20 mg PO QPM [facility] Last Admin: 04/08/17 17:56 Dose: 20 mg Cholecalciferol (Vitamin D Tab*) 1,000 units PO DAILY [facility] Last Admin: 04/08/17 08:25 Dose: 1,000 units Cyclobenzaprine HCl (Flexeril Tab*) 10 mg PO TID PRN PRN Reason: PAIN Enoxaparin Sodium (Lovenox(*)) 70 mg SUBCUT Q12H [facility] Last Admin: 04/09/17 03:51 Dose: 70 mg Furosemide (Lasix Tab*) 20 mg PO BID [facility] Guaifenesin (Mucinex*) 1,200 mg PO BID [facility] Last Admin: 04/08/17 20:59 Dose: 1,200 mg Cefepime HCl 1 gm/ Sodium (Chloride) 50 mls @ 100 mls/hr IVPB Q12H [facility] Last Admin: 04/08/17 20:59 Dose: 100 mls/hr Vancomycin HCl 1,000 mg/ (Sodium Chloride) 250 mls @ 166.667 mls/hr IVPB Q8H [facility] Last Admin: 04/09/17 06:08 Dose: 166.667 mls/hr Mometasone Furoate/Formoterol Fumar (Dulera 200/5 Mdi*) 2 puff INH BID [facility] PRN Reason: Protocol Last Admin: 04/09/17 07:49 Dose: 2 puff Montelukast Sodium (Singulair Tab*) 10 mg PO DAILY [facility] Last Admin: 04/08/17 08:24 Dose: 10 mg Omeprazole (Prilosec Cap*) 20 mg PO BID [facility] Last Admin: 04/08/17 20:58 Dose: 20 mg Oxycodone/Acetaminophen (Percocet 5/325 Tab*) 1 tab PO Q4H PRN PRN Reason: Pain Last Admin: 04/09/17 00:02 Dose: 1 tab Pharmacy Consult (Vancomycin Per Pharmacy*) 1 note FOLLOW UP . PRN PRN Reason: PER PROTOCOL Pharmacy Profile Note (Coumadin Daily Reminder*) 0 note FOLLOW UP 1700 [facility] Last Admin: 04/08/17 17:56 Dose: 5 note Pharmacy Profile Note (Vancomycin Trough Check) 1 note FOLLOW UP ONCE ONE Stop: 04/10/17 05:31 Tiotropium [place] (Spiriva Cap.Inh*) 1 cap INH DAILY [facility] Last Admin: 04/09/17 07:50 Dose: 1 cap Voriconazole (Vfend (Nf)) 200 mg PO BID [facility] PRN Reason: Protocol Last Admin: 04/08/17 20:55 Dose: 200 mg Warfarin Sodium (Coumadin Tab(*)) 5 mg PO DAILY@1700 [facility] PRN Reason: Protocol Last Admin: 04/08/17 17:56 Dose: 5 mg Vital Signs 04/08/17 04/08/17 04/08/17 08:55 09:00 09:01 Temperature Pulse Rate 102 104 Respiratory 20 20 21 Rate Blood Pressure 113/59 (mmHg) O2 Sat by Pulse 88 91 Oximetry 04/08/17 04/08/17 04/08/17 09:08 09:10 10:00 Temperature Pulse Rate 108 87 Respiratory 21 18 16 Rate Blood Pressure 109/60 (mmHg) O2 Sat by Pulse 92 92 Oximetry 04/08/17 04/08/17 04/08/17 10:01 11:00 11:44 Temperature Pulse Rate 97 92 Respiratory 16 17 17 Rate Blood Pressure 90/71 (mmHg) O2 Sat by Pulse 90 91 Oximetry 04/08/17 04/08/17 04/08/17 11:52 12:00 12:04 Temperature 98.7 F Pulse Rate 95 Respiratory 17 19 Rate Blood Pressure (mmHg) O2 Sat by Pulse 89 Oximetry 04/08/17 04/08/17 04/08/17 13:00 13:20 14:00 Temperature Pulse Rate 99 Respiratory 19 20 23 Rate Blood Pressure 112/90 117/68 (mmHg) O2 Sat by Pulse 87 Oximetry 04/08/17 04/08/17 04/08/17 14:12 15:00 15:23 Temperature Pulse Rate 91 Respiratory 20 18 22 Rate Blood Pressure 115/58 (mmHg) O2 Sat by Pulse 92 Oximetry 04/08/17 04/08/17 04/08/17 15:28 16:00 17:00 Temperature Pulse Rate 91 87 Respiratory 22 17 19 Rate Blood Pressure 112/47 108/55 (mmHg) O2 Sat by Pulse 92 91 Oximetry 04/08/17 04/08/17 04/08/17 18:00 18:11 19:00 Temperature Pulse Rate 94 91 Respiratory 19 19 21 Rate Blood Pressure 127/67 138/67 (mmHg) O2 Sat by Pulse 88 86 Oximetry 04/08/17 04/08/17 04/08/17 19:48 19:50 20:00 Temperature 99.4 F 99.4 F Pulse Rate 87 95 Respiratory 16 18 Rate Blood Pressure 117/58 117/58 (mmHg) O2 Sat by Pulse 93 90 Oximetry 04/08/17 04/08/17 04/08/17 21:00 22:00 23:00 Temperature Pulse Rate 89 79 74 Respiratory 24 19 11 Rate Blood Pressure 127/57 118/55 108/51 (mmHg) O2 Sat by Pulse 89 97 95 Oximetry 04/08/17 04/09/17 04/09/17 23:59 00:00 00:02 Temperature 97.9 F Pulse Rate 90 91 Respiratory 18 22 19 Rate Blood Pressure 140/54 (mmHg) O2 Sat by Pulse 89 88 Oximetry 04/09/17 04/09/17 04/09/17 00:50 00:55 01:00 Temperature Pulse Rate 74 75 Respiratory 15 19 12 Rate Blood Pressure 140/54 117/55 (mmHg) O2 Sat by Pulse 92 90 Oximetry 04/09/17 04/09/17 04/09/17 02:00 03:00 04:00 Temperature Pulse Rate 69 74 83 Respiratory 16 14 17 Rate Blood Pressure 117/57 127/57 130/60 (mmHg) O2 Sat by Pulse 93 93 84 Oximetry 04/09/17 04/09/17 04/09/17 04:22 05:00 06:00 Temperature 97.4 F Pulse Rate 78 90 Respiratory 14 15 Rate Blood Pressure 126/69 132/68 (mmHg) O2 Sat by Pulse 86 91 Oximetry 04/09/17 04/09/17 07:00 07:52 Temperature Pulse Rate 89 94 Respiratory 18 18 Rate Blood Pressure 129/72 (mmHg) O2 Sat by Pulse 91 90 Oximetry Oxygen Devices in Use Now: Nasal Cannula - 4L-88-91% Appearance: Elderly male sitting in a chair, NAD Eyes: No Scleral Icterus Ears/Nose/Mouth/Throat: Mucous Membranes Moist Respiratory: Symmetrical Chest Expansion and Respiratory Effort, - - B/L basilar crackles Cardiovascular: NL Sounds; No Murmurs; No JVD, RRR, No Edema Abdominal: NL Sounds; No Tenderness; No Distention Extremities: No Clubbing, Cyanosis Skin: No Rash or Ulcers, No Nodules or Sclerosis Neurological: Alert and Oriented x 3 Result Diagrams: 04/09/17 06:20 04/09/17 06:20 Additional Lab and Data: Lab Results 04/07/17 04/07/17 04/07/17 Range/Units 07:07 07:07 07:07 WBC 13.6 H (3.5-10.8) 10^3/ul RBC 3.78 L (4.0-5.4) 10^6/ul Hgb 10.6 L (14.0-18.0) g/dl Hct 33 L (42-52) % MCV 88 (80-94) fL MCH 28 (27-31) pg MCHC 32 (31-36) g/dl RDW 19 H (10.5-15) % Plt Count 530 H D (150-450) 10^3/ul MPV 8 (7.4-10.4) um3 Neut % (Auto) 76.8 (38-83) % Lymph % (Auto) 6.8 L (25-47) % [place] % (Auto) 15.3 H (1-9) % Eos % (Auto) 1.0 (0-6) % Baso % (Auto) 0.1 (0-2) % Absolute Neuts (auto) 10.5 H (1.5-7.7) 10^3/ul Absolute Lymphs (auto) 0.9 L (1.0-4.8) 10^3/ul Absolute Monos (auto) 2.1 H (0-0.8) 10^3/ul Absolute Eos (auto) 0.1 (0-0.6) 10^3/ul Absolute Basos (auto) 0 (0-0.2) 10^3/ul Absolute Nucleated RBC 0.01 10^3/ul Nucleated RBC % 0 INR (Anticoag Therapy) (0.89-1.11) APTT (26.0-36.3) seconds Patient Temperature ABG pH (7.35-7.45) ABG pCO2 (35-45) mmHg ABG pO2 (80-100) mmHg ABG HCO3 (19-31) mmol/L ABG O2 Saturation (95-98) % ABG Base Excess (-2.0-2.0) Respiration Rate O2 Delivery Device Ventilator Type Vent Mode FiO2 Inspiratory Time PEEP Pressure Support Pressure Control EPAP IPAP BiPAP Sodium 124 L (133-145) mmol/L Potassium 6.1 H* (3.5-5.0) mmol/L Chloride 89 L (101-111) mmol/L Carbon Dioxide 26 (22-32) mmol/L Anion Gap 9 (2-11) mmol/L BUN 24 (6-24) mg/dL Creatinine 0.74 (0.67-1.17) mg/dL Est GFR ( Amer) 134.5 (>60) Est GFR (Non-Af Amer) 104.6 (>60) BUN/Creatinine Ratio 32.4 H (8-20) Glucose 92 (70-100) mg/dL Lactic Acid 1.2 (0.5-2.0) mmol/L Calcium 9.4 (8.6-10.3) mg/dL Total Bilirubin 0.40 (0.2-1.0) mg/dL AST 33 (13-39) U/L ALT 24 (7-52) U/L Alkaline Phosphatase 118 H (34-104) U/L Troponin I 0.04 H* (<0.04) ng/mL B-Natriuretic Peptide ( - 100) pg/mL Total Protein 6.8 (6.4-8.9) g/dL Albumin 3.2 (3.2-5.2) g/dL Globulin 3.6 (2-4) g/dL Albumin/Globulin Ratio 0.9 L (1-3) 04/07/17 04/07/17 04/07/17 Range/Units 07:07 07:07 07:30 WBC (3.5-10.8) 10^3/ul RBC (4.0-5.4) 10^6/ul Hgb (14.0-18.0) g/dl Hct (42-52) % MCV (80-94) fL MCH (27-31) pg MCHC (31-36) g/dl RDW (10.5-15) % Plt Count (150-450) 10^3/ul MPV (7.4-10.4) um3 Neut % (Auto) (38-83) % Lymph % (Auto) (25-47) % [place] % (Auto) (1-9) % Eos % (Auto) (0-6) % Baso % (Auto) (0-2) % Absolute Neuts (auto) (1.5-7.7) 10^3/ul Absolute Lymphs (auto) (1.0-4.8) 10^3/ul Absolute Monos (auto) (0-0.8) 10^3/ul Absolute Eos (auto) (0-0.6) 10^3/ul Absolute Basos (auto) (0-0.2) 10^3/ul Absolute Nucleated RBC 10^3/ul Nucleated RBC % INR (Anticoag Therapy) 1.44 H (0.89-1.11) APTT 33.5 (26.0-36.3) seconds Patient Temperature Not Reportable ABG pH 7.41 (7.35-7.45) ABG pCO2 43 (35-45) mmHg ABG pO2 79 L (80-100) mmHg ABG HCO3 26.6 (19-31) mmol/L ABG O2 Saturation 94.2 L (95-98) % ABG Base Excess 2.3 H (-2.0-2.0) Respiration Rate 12 O2 Delivery Device bipap Ventilator Type Not Reportable Vent Mode s/t FiO2 50 Inspiratory Time 1.0 PEEP Not Reportable Pressure Support Not Reportable Pressure Control Not Reportable EPAP 6 IPAP 12 BiPAP Not Reportable Sodium (133-145) mmol/L Potassium (3.5-5.0) mmol/L Chloride (101-111) mmol/L Carbon Dioxide (22-32) mmol/L Anion Gap (2-11) mmol/L BUN (6-24) mg/dL Creatinine (0.67-1.17) mg/dL Est GFR ( Amer) (>60) Est GFR (Non-Af Amer) (>60) BUN/Creatinine Ratio (8-20) Glucose (70-100) mg/dL Lactic Acid (0.5-2.0) mmol/L Calcium (8.6-10.3) mg/dL Total Bilirubin (0.2-1.0) mg/dL AST (13-39) U/L ALT (7-52) U/L Alkaline Phosphatase (34-104) U/L Troponin I (<0.04) ng/mL B-Natriuretic Peptide 128 H ( - 100) pg/mL Total Protein (6.4-8.9) g/dL Albumin (3.2-5.2) g/dL Globulin (2-4) g/dL Albumin/Globulin Ratio (1-3) Microbiology and Other Data: Microbiology 04/07/17 15:34 Gram Stain - Final Sputum Expectorated Sputum Culture - Preliminary Staphylococcus Aureus Assess/Plan/Problems-Billing Mr Celis is a 71 yo M with a h/o chronic hypoxic respiratory failure secondary to COPD on O2, 3.5L continuously, invasive pulmonary aspergillosis, recent dx for PE and CAD who presented to the ER with c/o progressive SOB, gurgling respirations and hypoxia. - Patient Problems (1) SOB (shortness of breath) Current Visit: Yes Status: Acute Code(s): R06.02 - SHORTNESS OF BREATH SNOMED Code(s): 914705635 Comment: Likely multifactorial secondary to baseline COPD, invasive pulmonary aspergillosis, newly diagnosed PE and now pna. SOB about the same today. Continue flutter valve/pulmonary toilet, treating pna and treating pain. (2) Pneumonia Current Visit: Yes Status: Acute Code(s): J18.9 - PNEUMONIA, UNSPECIFIED ORGANISM SNOMED Code(s): 303923607 Comment: Sputum culture grew S aureus. WIll discuss with Dr. Means. For now will conitnue on vanco and cefepime. The patient is stable to transfer to the floor this AM. (3) Hypoxia Current Visit: Yes Status: Acute Code(s): R09.02 - HYPOXEMIA SNOMED Code(s ): 381830844 Comment: Continue supplemental O2-he is appearing to need 4L O2 to maintain saturations in the upper 80's to low 90's. (4) Hyponatremia Current Visit: Yes Status: Acute Code(s): E87.1 - HYPO-OSMOLALITY AND HYPONATREMIA SNOMED Code(s): 84378507 Comment: Na continues to improve. Will continue to follow. (5) Pulmonary embolism Current Visit: Yes Status: Acute Code(s): I26.99 - OTHER PULMONARY EMBOLISM WITHOUT ACUTE COR PULMONALE SNOMED Code(s): 00095202 Comment: Continue coumadin. INR pending. (6) Troponin level elevated Current Visit: Yes Status: Acute Code(s): R74.8 - ABNORMAL LEVELS OF OTHER SERUM ENZYMES SNOMED Code(s): 923366640 Comment: Likely demand ischemia. Troponin has normalized after improvment in his respiratory distress. (7) Aspergillosis Current Visit: Yes Status: Acute Code(s): B44.9 - ASPERGILLOSIS, UNSPECIFIED SNOMED Code(s): 97425316 Comment: Continue voriconazole. Follow up with Dr. Means. (8) COPD (chronic obstructive pulmonary disease) Current Visit: Yes Status: Chronic Code(s): J44.9 - CHRONIC OBSTRUCTIVE PULMONARY DISEASE, UNSPECIFIED SNOMED Code(s): 48295101 Comment: No signs of exacerbation. Continue home inhaler regimen. (9) HTN (hypertension) Current Visit: Yes Status: Chronic Code(s): I10 - ESSENTIAL (PRIMARY) HYPERTENSION SNOMED Code(s): 19295241 Comment: BP is well controlled on amlodipine. Continue to monitor. (10) Atrial fibrillation Current Visit: Yes Status: Acute Code(s): I48.91 - UNSPECIFIED ATRIAL FIBRILLATION SNOMED Code(s): 76214531 Comment: In sinus at this time. Continue to monitor. (11) HLD (hyperlipidemia) Current Visit: Yes Status: Chronic Code(s): E78.5 - HYPERLIPIDEMIA, UNSPECIFIED SNOMED Code(s): 46993875 Comment: Continue lipitor. (12) DVT prophylaxis Current Visit: Yes Status: Acute Code(s): DIJ0844 - SNOMED Code(s): 233614820 Comment: Lovenox bridging to coumadin (13) Full code status Current Visit: Yes Status: Acute Code(s): Z78.9 - OTHER SPECIFIED HEALTH STATUS SNOMED Code(s): 193016354
[2017-04-09] MEDS: Furosemide TAB* 20 MG PO SCH ×2 (08:39→21:36)
[2017-04-09] MEDS: Cholecalciferol TAB* 1000 UNITS PO SCH (08:39)
[2017-04-09] MEDS: Omeprazole CAP* 20 MG PO SCH ×2 (08:39→21:35)
[2017-04-09] MEDS: amLODIPine TAB* 5 MG PO SCH (08:39)
[2017-04-09] MEDS: Aspirin EC Low Dose* 81 MG TAB.EC PO SCH (08:39)
[2017-04-09] MEDS: Montelukast Sodium TAB* 10 MG PO SCH (08:40)
[2017-04-09] MEDS: guaiFENesin ER TAB 600 MG PO SCH ×2 (08:40→21:35)
[2017-04-09] MEDS: VORICONAZOLE 50 MG PO SCH ×2 (08:41→21:47)
[2017-04-09] MEDS: Cefepime(*) 1 GM in NS 0.9% 50 ML* 50 ML IVPB SCH (09:35)
--- NOTE | 2017-04-09 11:33 | PN ---
Progress Note - Progress Note Date of Service: 04/09/17 SOAP: Subjective: CC: pneumonia HPI: 71 year old man with severe COPD now with cough and hypoxia. Improving dyspnea, cough, and O2 Sats. On NC now. No fever, rash, or diarrhea. Objective: [] Vital Signs Temp 37.5 C 04/09/17 11:26 Pulse 100 04/09/17 10:00 Resp 18 04/09/17 10:00 BP 119/53 04/09/17 10:00 Pulse Ox 87 04/09/17 10:00 Intake & Output 04/08/17 04/09/17 04/09/17 18:59 06:59 18:59 Intake Total 1527 957 250 Output Total 600 1075 Balance 927 -118 250 Weight 155 lb 13.869 oz Intake: IV Fluids 527 857 NS (0.9%) 527 857 Oral 1000 100 250 Output: Urine 600 1075 Gen:awake, no distress HEENT:PERRL MMM Neck:Supple Heart:RRR no murmur Lungs: decr BS BL, expir rhonchi throughout Abd:+BS NTND soft Skin: No rash Laboratory Results - last 24 hr 04/08/17 04/08/17 04/09/17 10:35 10:35 06:20 WBC RBC Hgb Hct MCV MCH MCHC RDW Plt Count MPV Immature Gran % (Auto) Absolute Neuts (auto) Absolute Lymphs (auto) Absolute Monos (auto) Absolute Eos (auto) Absolute Basos (auto) Absolute Nucleated RBC Neutrophils % Band Neutrophils % Lymphocytes % Monocytes % Metamyelocytes % Myelocytes % Normal RBC Morphology Clifford Cells Elliptocytes INR (Anticoag Therapy) Sodium 130 L Potassium 5.0 Chloride 98 L Carbon Dioxide 24 Anion Gap 8 BUN 38 H Creatinine 0.68 Est GFR ( Amer) 148.3 Est GFR (Non-Af Amer) 115.3 BUN/Creatinine Ratio 55.9 H Glucose 111 H Calcium 8.4 L Vancomycin Trough Cancelled 22.7 04/09/17 04/09/17 06:20 08:36 WBC 14.3 H RBC 3.65 L Hgb 10.3 L Hct 32 L MCV 88 MCH 28 MCHC 32 RDW 20 H Plt Count 423 MPV 8 Immature Gran % (Auto) 4 Absolute Neuts (auto) 11.6 H Absolute Lymphs (auto) 1.1 Absolute Monos (auto) 1.6 H Absolute Eos (auto) Not Reportable Absolute Basos (auto) Not Reportable Absolute Nucleated RBC Not Reportable Neutrophils % 77 Band Neutrophils % 1 Lymphocytes % 8 L Monocytes % 11 Metamyelocytes % 1 Myelocytes % 2 H Normal RBC Morphology Not Reportable Clifford Cells 1+ Elliptocytes 1+ INR (Anticoag Therapy) 1.44 H Sodium Potassium Chloride Carbon Dioxide Anion Gap BUN Creatinine Est GFR ( Amer) Est GFR (Non-Af Amer) BUN/Creatinine Ratio Glucose Calcium Vancomycin Trough Microbiology 04/07/17 15:34 Gram Stain - Final Sputum Expectorated Sputum Culture - Preliminary Staphylococcus Aureus 04/07/17 07:35 Aerobic Blood Culture - Preliminary Blood Venous No Growth Day 2 Anaerobic Blood Culture - Preliminary No Growth Day 2 Blood Culture - Final 04/07/17 07:30 Aerobic Blood Culture - Preliminary Blood Venous No Growth Day 2 Anaerobic Blood Culture - Preliminary No Growth Day 2 Blood Culture - Final Assessment: 1. Staph aureus pneumonia 2. acute on chronic hypoxemic respiratory failure 3. severe COPD 4. pulmonary embolus 5. Invasive pulmonary aspergillosis Plan: 1. change cefepime to ceftriaxone and vanco while awaiting susceptibilities 2. 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
[2017-04-09] MEDS: Docusate CAP* 100 MG PO PRN (16:44)
[2017-04-09] MEDS: Atorvastatin* 20 MG TAB PO SCH (16:44)
[2017-04-09] MEDS: Warfarin TAB(*) 5 MG PO SCH (16:44)
[2017-04-09] MEDS: cefTRIAXone VIAL(*) 1,000 MG in NS 0.9% 50 ML* 50 ML IVPB SCH (16:45)
[2017-04-09] MEDS ORDERED: NS 0.9% 250 ML* 250 ML ONE (21:21)
[2017-04-10] MEDS: oxyCODONE/Acetamin 5/325 MG* TAB PO PRN ×3 (03:01→20:57)
[2017-04-10] MEDS ORDERED: Vancomycin Trough Check NOTE FOLLOW UP ONE (05:30)
[2017-04-10] MEDS: Tiotropium CAP.INH* CAP.INH/18 MCG INH SCH (08:01)
[2017-04-10] MEDS: Mometasone/Formoter 200/5 MDI INH SCH ×2 (08:02→19:15)
[2017-04-10] MEDS: amLODIPine TAB* 5 MG PO SCH (08:32)
[2017-04-10] MEDS: Montelukast Sodium TAB* 10 MG PO SCH (08:33)
[2017-04-10] MEDS: VORICONAZOLE 50 MG PO SCH ×2 (08:33→20:57)
[2017-04-10] MEDS: guaiFENesin ER TAB 600 MG PO SCH (08:33)
[2017-04-10] MEDS: Cholecalciferol TAB* 1000 UNITS PO SCH (08:33)
[2017-04-10] MEDS: Furosemide TAB* 20 MG PO SCH ×2 (08:33→20:57)
[2017-04-10] MEDS: Aspirin EC Low Dose* 81 MG TAB.EC PO SCH (08:33)
[2017-04-10] MEDS: Omeprazole CAP* 20 MG PO SCH ×2 (08:33→20:57)
[2017-04-10 08:36] LABS: Hematocrit 31 % (42-52); Hemoglobin 10.1 g/dl (14.0-18.0); Mean Corpuscular HGB Conc 32 g/dl (31-36); Mean Corpuscular Hemoglobin 28 pg (27-31); Mean Corpuscular Volume 87 fL (80-94); Mean Platelet Volume 7 um3 (7.4-10.4); Red Blood Count 3.58 10^6/ul (4.0-5.4); Red Cell Distribution Width 19 % (10.5-15); White Blood Count 13.2 10^3/ul (3.5-10.8)
[2017-04-10 08:46] LABS: BUN/Creatinine Ratio 41.8 (8-20); Calcium 8.7 mg/dL (8.6-10.3); EGFR African American 150.8 (>60); EGFR Non-African American 117.3 (>60); Potassium 4.4 mmol/L (3.5-5.0)
[2017-04-10 08:52] LABS: Comments Flag Yes
[2017-04-10 08:53] LABS: Add Diff/Slide Review? Slide Review Added
[2017-04-10] MEDS ORDERED: Enoxaparin(*) 80 MG/0.8 ML SYR SUBCUT SCH (09:00)
[2017-04-10] MEDS: Vancomycin(*) 1,000 MG in NS 0.9% 250 ML* 250 ML IVPB SCH (09:28)
[2017-04-10 09:42] LABS: Eosinophils % 1 % (0-6); Immature Granulocytes 10 % (0-9); Metamyelocytes % 4 % (0-2); Myelocytes % 5 % (0-1); Neutrophil % 68 % (38-83)
[2017-04-10 09:44] LABS: Add Path Review? YES
--- NOTE | 2017-04-10 12:32 | PN ---
Subjective Date of Service: 04/10/17 Interval History: Pt is feeling well today. He states however he did not sleep well last night. He states he was up all night coughing. Objective Active Medications: Amlodipine Besylate (Norvasc Tab*) 10 mg PO DAILY [facility] Last Admin: 04/10/17 08:32 Dose: 10 mg Aspirin (Aspirin Ec Low Dose*) 81 mg PO DAILY [facility] Last Admin: 04/10/17 08:33 Dose: 81 mg Atorvastatin Calcium (Lipitor*) 20 mg PO QPM [facility] Last Admin: 04/09/17 16:44 Dose: 20 mg Cholecalciferol (Vitamin D Tab*) 1,000 units PO DAILY [facility] Last Admin: 04/10/17 08:33 Dose: 1,000 units Cyclobenzaprine HCl (Flexeril Tab*) 10 mg PO TID PRN PRN Reason: PAIN Docusate Sodium (Colace Cap*) 100 mg PO BID PRN PRN Reason: CONSTIPATION Last Admin: 04/09/17 16:44 Dose: 100 mg Furosemide (Lasix Tab*) 20 mg PO BID [facility] Last Admin: 04/10/17 08:33 Dose: 20 mg Guaifenesin (Mucinex*) 1,200 mg PO BID [facility] Last Admin: 04/10/17 08:33 Dose: 1,200 mg Ceftriaxone Sodium 1,000 mg/ (Sodium Chloride) 50 mls @ 200 mls/hr IVPB Q24H [facility] Last Admin: 04/09/17 16:45 Dose: 200 mls/hr Magnesium Hydroxide (Milk Of Magnesia Liq*) 30 ml PO Q6H PRN PRN Reason: CONSTIPATION Mometasone Furoate/Formoterol Fumar (Dulera 200/5 Mdi*) 2 puff INH BID [facility] PRN Reason: Protocol Last Admin: 04/10/17 08:02 Dose: 2 puff Montelukast Sodium (Singulair Tab*) 10 mg PO DAILY [facility] Last Admin: 04/10/17 08:33 Dose: 10 mg Omeprazole (Prilosec Cap*) 20 mg PO BID [facility] Last Admin: 04/10/17 08:33 Dose: 20 mg Oxycodone/Acetaminophen (Percocet 5/325 Tab*) 1 tab PO Q4H PRN PRN Reason: Pain Last Admin: 04/10/17 12:14 Dose: 1 tab Pharmacy Profile Note (Coumadin Daily Reminder*) 0 note FOLLOW UP 1700 [facility] Last Admin: 04/09/17 16:52 Dose: 5 note Polyethylene Glycol/Electrolytes (Miralax*) 17 gm PO DAILY PRN PRN Reason: CONSTIPATION Senna (Senokot Tab*) 1 tab PO BEDTIME PRN PRN Reason: CONSTIPATION Tiotropium [place] (Spiriva Cap.Inh*) 1 cap INH DAILY [facility] Last Admin: 04/10/17 08:01 Dose: 1 cap Voriconazole (Vfend (Nf)) 200 mg PO BID [facility] PRN Reason: Protocol Last Admin: 04/10/17 08:33 Dose: 200 mg Vital Signs 04/09/17 04/09/17 04/09/17 14:00 14:30 14:50 Temperature Pulse Rate Respiratory 20 20 Rate Blood Pressure (mmHg) O2 Sat by Pulse 89 Oximetry 04/09/17 04/09/17 04/09/17 15:44 16:48 19:30 Temperature 97.1 F Pulse Rate 76 Respiratory 20 16 21 Rate Blood Pressure 112/49 (mmHg) O2 Sat by Pulse 91 Oximetry 04/09/17 04/09/17 04/09/17 19:45 19:47 21:35 Temperature 98.2 F Pulse Rate 88 89 Respiratory 24 18 22 Rate Blood Pressure 123/76 (mmHg) O2 Sat by Pulse 91 91 Oximetry 04/09/17 04/09/17 04/09/17 21:40 23:14 23:35 Temperature 97.4 F Pulse Rate 93 Respiratory 21 15 20 Rate Blood Pressure 131/50 (mmHg) O2 Sat by Pulse 89 Oximetry 04/10/17 04/10/17 04/10/17 01:35 03:01 03:35 Temperature 98.1 F Pulse Rate 85 Respiratory 21 18 17 Rate Blood Pressure 129/51 (mmHg) O2 Sat by Pulse 93 Oximetry 04/10/17 04/10/17 04/10/17 05:01 07:36 08:03 Temperature 97.5 F Pulse Rate 82 75 Respiratory 22 23 16 Rate Blood Pressure 122/49 (mmHg) O2 Sat by Pulse 93 92 Oximetry 04/10/17 04/10/17 04/10/17 08:48 11:15 12:14 Temperature 97.4 F Pulse Rate 92 Respiratory 18 21 22 Rate Blood Pressure 118/45 (mmHg) O2 Sat by Pulse 93 Oximetry Oxygen Devices in Use Now: Nasal Cannula - 8L-92% Appearance: Elderly male sleeping sitting up in bed, NAD Eyes: No Scleral Icterus Ears/Nose/Mouth/Throat: Mucous Membranes Moist Respiratory: Symmetrical Chest Expansion and Respiratory Effort, - - diminished breath sounds in both lungs and bibasilar crackles Abdominal: NL Sounds; No Tenderness; No Distention Extremities: No Clubbing, Cyanosis Skin: No Rash or Ulcers, No Nodules or Sclerosis, - - + bruising noted on pts arms Neurological: Alert and Oriented x 3 Result Diagrams: 04/10/17 08:18 04/10/17 08:18 Additional Lab and Data: Lab Results 04/07/17 04/07/17 04/07/17 Range/Units 07:07 07:07 07:07 WBC 13.6 H (3.5-10.8) 10^3/ul RBC 3.78 L (4.0-5.4) 10^6/ul Hgb 10.6 L (14.0-18.0) g/dl Hct 33 L (42-52) % MCV 88 (80-94) fL MCH 28 (27-31) pg MCHC 32 (31-36) g/dl RDW 19 H (10.5-15) % Plt Count 530 H D (150-450) 10^3/ul MPV 8 (7.4-10.4) um3 Neut % (Auto) 76.8 (38-83) % Lymph % (Auto) 6.8 L (25-47) % [place] % (Auto) 15.3 H (1-9) % Eos % (Auto) 1.0 (0-6) % Baso % (Auto) 0.1 (0-2) % Absolute Neuts (auto) 10.5 H (1.5-7.7) 10^3/ul Absolute Lymphs (auto) 0.9 L (1.0-4.8) 10^3/ul Absolute Monos (auto) 2.1 H (0-0.8) 10^3/ul Absolute Eos (auto) 0.1 (0-0.6) 10^3/ul Absolute Basos (auto) 0 (0-0.2) 10^3/ul Absolute Nucleated RBC 0.01 10^3/ul Nucleated RBC % 0 INR (Anticoag Therapy) (0.89-1.11) APTT (26.0-36.3) seconds Patient Temperature ABG pH (7.35-7.45) ABG pCO2 (35-45) mmHg ABG pO2 (80-100) mmHg ABG HCO3 (19-31) mmol/L ABG O2 Saturation (95-98) % ABG Base Excess (-2.0-2.0) Respiration Rate O2 Delivery Device Ventilator Type Vent Mode FiO2 Inspiratory Time PEEP Pressure Support Pressure Control EPAP IPAP BiPAP Sodium 124 L (133-145) mmol/L Potassium 6.1 H* (3.5-5.0) mmol/L Chloride 89 L (101-111) mmol/L Carbon Dioxide 26 (22-32) mmol/L Anion Gap 9 (2-11) mmol/L BUN 24 (6-24) mg/dL Creatinine 0.74 (0.67-1.17) mg/dL Est GFR ( Amer) 134.5 (>60) Est GFR (Non-Af Amer) 104.6 (>60) BUN/Creatinine Ratio 32.4 H (8-20) Glucose 92 (70-100) mg/dL Lactic Acid 1.2 (0.5-2.0) mmol/L Calcium 9.4 (8.6-10.3) mg/dL Total Bilirubin 0.40 (0.2-1.0) mg/dL AST 33 (13-39) U/L ALT 24 (7-52) U/L Alkaline Phosphatase 118 H (34-104) U/L Troponin I 0.04 H* (<0.04) ng/mL B-Natriuretic Peptide ( - 100) pg/mL Total Protein 6.8 (6.4-8.9) g/dL Albumin 3.2 (3.2-5.2) g/dL Globulin 3.6 (2-4) g/dL Albumin/Globulin Ratio 0.9 L (1-3) 04/07/17 04/07/17 04/07/17 Range/Units 07:07 07:07 07:30 WBC (3.5-10.8) 10^3/ul RBC (4.0-5.4) 10^6/ul Hgb (14.0-18.0) g/dl Hct (42-52) % MCV (80-94) fL MCH (27-31) pg MCHC (31-36) g/dl RDW (10.5-15) % Plt Count (150-450) 10^3/ul MPV (7.4-10.4) um3 Neut % (Auto) (38-83) % Lymph % (Auto) (25-47) % [place] % (Auto) (1-9) % Eos % (Auto) (0-6) % Baso % (Auto) (0-2) % Absolute Neuts (auto) (1.5-7.7) 10^3/ul Absolute Lymphs (auto) (1.0-4.8) 10^3/ul Absolute Monos (auto) (0-0.8) 10^3/ul Absolute Eos (auto) (0-0.6) 10^3/ul Absolute Basos (auto) (0-0.2) 10^3/ul Absolute Nucleated RBC 10^3/ul Nucleated RBC % INR (Anticoag Therapy) 1.44 H (0.89-1.11) APTT 33.5 (26.0-36.3) seconds Patient Temperature Not Reportable ABG pH 7.41 (7.35-7.45) ABG pCO2 43 (35-45) mmHg ABG pO2 79 L (80-100) mmHg ABG HCO3 26.6 (19-31) mmol/L ABG O2 Saturation 94.2 L (95-98) % ABG Base Excess 2.3 H (-2.0-2.0) Respiration Rate 12 O2 Delivery Device bipap Ventilator Type Not Reportable Vent Mode s/t FiO2 50 Inspiratory Time 1.0 PEEP Not Reportable Pressure Support Not Reportable Pressure Control Not Reportable EPAP 6 IPAP 12 BiPAP Not Reportable Sodium (133-145) mmol/L Potassium (3.5-5.0) mmol/L Chloride (101-111) mmol/L Carbon Dioxide (22-32) mmol/L Anion Gap (2-11) mmol/L BUN (6-24) mg/dL Creatinine (0.67-1.17) mg/dL Est GFR ( Amer) (>60) Est GFR (Non-Af Amer) (>60) BUN/Creatinine Ratio (8-20) Glucose (70-100) mg/dL Lactic Acid (0.5-2.0) mmol/L Calcium (8.6-10.3) mg/dL Total Bilirubin (0.2-1.0) mg/dL AST (13-39) U/L ALT (7-52) U/L Alkaline Phosphatase (34-104) U/L Troponin I (<0.04) ng/mL B-Natriuretic Peptide 128 H ( - 100) pg/mL Total Protein (6.4-8.9) g/dL Albumin (3.2-5.2) g/dL Globulin (2-4) g/dL Albumin/Globulin Ratio (1-3) Microbiology and Other Data: Microbiology 04/07/17 15:34 Gram Stain - Final Sputum Expectorated Sputum Culture - Preliminary Staphylococcus Aureus Assess/Plan/Problems-Billing Mr Celis is a 71 yo M with a h/o chronic hypoxic respiratory failure secondary to COPD on O2, 3.5L continuously, invasive pulmonary aspergillosis, recent dx for PE and CAD who presented to the ER with c/o progressive SOB, gurgling respirations and hypoxia. - Patient Problems (1) SOB (shortness of breath) Current Visit: Yes Status: Acute Code(s): R06.02 - SHORTNESS OF BREATH SNOMED Code(s): 969373658 Comment: Likely multifactorial secondary to baseline COPD, invasive pulmonary aspergillosis, newly diagnosed PE and now pna. SOB improved some. He is coughing up a significant amount of sputum. Dr. Israel will see the patient today. (2) Pneumonia Current Visit: Yes Status: Acute Code(s): J18.9 - PNEUMONIA, UNSPECIFIED ORGANISM SNOMED Code(s): 865787874 Comment: Sputum has now grown s aureus and stenotrophomonas multophilia. Continue ceftriaxone per Dr. Aparicio recommendations. (3) Hypoxia Current Visit: Yes Status: Acute Code(s): R09.02 - HYPOXEMIA SNOMED Code(s ): 692851099 Comment: The patient has had acute on chronic hypoxic respiratory failure. The patient's O2 requirements have varied quite a bit. He is currently on 8L. Will conitnue to try to wean down. (4) Hyponatremia Current Visit: Yes Status: Acute Code(s): E87.1 - HYPO-OSMOLALITY AND HYPONATREMIA SNOMED Code(s): 32149278 Comment: Resolved. Follow intermittently. (5) Pulmonary embolism Current Visit: Yes Status: Acute Code(s): I26.99 - OTHER PULMONARY EMBOLISM WITHOUT ACUTE COR PULMONALE SNOMED Code(s): 30624261 Comment: INR is therapeutic today but took a very large jump. Hold coumadin tonight and recheck tomorrow. (6) Troponin level elevated Current Visit: Yes Status: Acute Code(s): R74.8 - ABNORMAL LEVELS OF OTHER SERUM ENZYMES SNOMED Code(s): 937362625 Comment: Likely demand ischemia. No further work up at this time. (7) Aspergillosis Current Visit: Yes Status: Acute Code(s): B44.9 - ASPERGILLOSIS, UNSPECIFIED SNOMED Code(s): 59204795 Comment: Continue voriconazole. Follow up with Dr. Means as outpatient. (8) COPD (chronic obstructive pulmonary disease) Current Visit: Yes Status: Chronic Code(s): J44.9 - CHRONIC OBSTRUCTIVE PULMONARY DISEASE, UNSPECIFIED SNOMED Code(s): 57111318 Comment: No signs of exacerbation. Continue home inhaler regimen. (9) HTN (hypertension) Current Visit: Yes Status: Chronic Code(s): I10 - ESSENTIAL (PRIMARY) HYPERTENSION SNOMED Code(s): 34113800 Comment: BP is well controlled on amlodipine. Continue to monitor. (10) Atrial fibrillation Current Visit: Yes Status: Acute Code(s): I48.91 - UNSPECIFIED ATRIAL FIBRILLATION SNOMED Code(s): 94307708 Comment: In sinus at this time. Continue to monitor. (11) HLD (hyperlipidemia) Current Visit: Yes Status: Chronic Code(s): E78.5 - HYPERLIPIDEMIA, UNSPECIFIED SNOMED Code(s): 72211497 Comment: Continue lipitor. (12) DVT prophylaxis Current Visit: Yes Status: Acute Code(s): UJG4436 - SNOMED Code(s): 744189894 Comment: Therapeutic INR. (13) Full code status Current Visit: Yes Status: Acute Code(s): Z78.9 - OTHER SPECIFIED HEALTH STATUS SNOMED Code(s): 865664879
--- NOTE | 2017-04-10 13:21 | CONSULT ---
Consult Consult: Pulm consult note 04/10/17 Consultation requested by: Dr Webb Reason for consultation: SOB, Hypoxia CC: Worsening SOB HPI:71-year-old male with history of COPD, chronic bronchitis, GERD, hypertension, CAD, recently admitted to [facility] [place] for recurrent bronchitis, pneumonia and was treated with multiple courses of prednisone and antibiotics, hospital stay was complicated with acute GI bleed , underwent upper endoscopy which revealed peptic ulcer disease. Pt was also noted to have cavitary nodule on CT chest, positive sputum cx for mold, bx suggestive of inflammation and was started on antifungal for pulmonary aspergillosis. He was readmitted end of last month for SOB, CTA showed BUFFY PE, started on anticoagulation. Pt wa readmitted yesterday for evaluation of worsening SOB. Pt reported that he never felt better with his breathing upon d/c. He was not candidate for inpt rehab and out pt PT and home care was arranged. He is being admitted and treated for acute CHF exacerbation and Staph PNA. He was monitored in [facility] yesterday given significant SOB and hypoxia and was treated with BiPAP S/T. He is currently needing O2 at 8L/min. Pt was seen and examined at bedside. Pt reports feeling slightly better this am. He was able to do PT. Denies fevers or chills. Has signficant LE swelling that improved with Lasix. Patient denies headaches, neck stiffness, night sweats, chills, abdominal pain , diarrhea. CT scan of the chest during recent hospitalization showed resolution of cavitary nodule and air space opacities. Active Medications Generic Name Dose Route Start Last Admin Trade Name Freq PRN Reason Stop Dose Admin Amlodipine Besylate 10 mg 04/07/17 09:00 04/10/17 08:32 Norvasc Tab* PO 10 mg DAILY [facility] Administration Aspirin 81 mg 04/07/17 09:00 04/10/17 08:33 Aspirin Ec Low Dose* PO 81 mg DAILY [facility] Administration Atorvastatin Calcium 20 mg 04/07/17 18:00 04/09/17 16:44 Lipitor* PO 20 mg QPM [facility] Administration Cholecalciferol 1,000 units 04/07/17 09:00 04/10/17 08:33 Vitamin D Tab* PO 1,000 units DAILY [facility] Administration Cyclobenzaprine HCl 10 mg 04/07/17 08:59 Flexeril Tab* PO TID PRN PAIN Docusate Sodium 100 mg 08/03/17 15:35 04/09/17 16:44 Colace Cap* PO 100 mg BID PRN Administration CONSTIPATION Furosemide 20 mg 04/09/17 09:00 04/10/17 08:33 Lasix Tab* PO 20 mg BID [facility] Administration Guaifenesin 10 ml 04/10/17 12:32 Robitussin* PO Q4H PRN COUGH Ceftriaxone Sodium 1,000 mg/ 50 mls @ 200 mls/hr 04/09/17 15:00 04/09/17 16: 45 Sodium Chloride IVPB 200 mls/hr Q24H [facility] Administration Magnesium Hydroxide 30 ml 04/09/17 15:35 Milk Of Magnesia Liq* PO Q6H PRN CONSTIPATION Mometasone Furoate/Formoterol Fumar 2 puff 04/07/17 09:00 04/10/17 08:02 Dulera 200/5 Mdi* INH 2 puff BID [facility] Administration Protocol Montelukast Sodium 10 mg 04/07/17 09:00 04/10/17 08:33 Singulair Tab* PO 10 mg DAILY [facility] Administration Omeprazole 20 mg 04/07/17 09:00 04/10/17 08:33 Prilosec Cap* PO 20 mg BID [facility] Administration Oxycodone/Acetaminophen 1 tab 04/07/17 08:59 04/10/17 12:14 Percocet 5/325 Tab* PO 1 tab Q4H PRN Administration Pain Polyethylene Glycol/Electrolytes 17 gm 04/09/17 15:35 Miralax* PO DAILY PRN CONSTIPATION Senna 1 tab 04/09/17 15:35 Senokot Tab* PO BEDTIME PRN CONSTIPATION Tiotropium [place] 1 cap 04/07/17 09:00 04/10/17 08:01 Spiriva Cap.Inh* INH 1 cap DAILY [facility] Administration Voriconazole 200 mg 04/07/17 21:00 04/10/17 08:33 Vfend (Nf) PO 200 mg BID [facility] Administration Protocol All: Lipitor ROS: All 14 systems reviewed and as per HPI PMH: Chronic Obstructive Pulmonary on home O2 Hypertension Hypercholesterolemia Atrial Fibrillation - paroxysmal. Coronary Artery Disease (CAD) - (2016) Based on stress test 2017 Cardiomyopathy - (2016) GI Bleed - (12/12/2016) , duodenal ulcer Multiple recent admissions for COPD exacerbation Aspergillus PNA Surgical Hx: Prostatectomy - (2002) FHx: Father- Stroke. due to Stroke. Mother: due to MD. Social Hx: , lives at home with , Patient is a former smoker - Quit ~ 1997 Smoked a pack or more a day. No ETOH or drug abuse Vital Signs Temp Pulse Resp BP Pulse Ox 97.4 F 92 22 118/45 93 04/10/17 11:15 04/10/17 11:15 04/10/17 12:14 04/10/17 11:15 04/10/17 11:15 Gen: Pt sitting in chair in NAD HEENT: PERRLA, No accessory muscle usage Lungs: Diminished a/e, No wheeze CVS; S1, S2+, tachycardia Abd: Soft, BS+ Skin: Multiple bruises present Neuro: No focal defecits Ext: Normal ROM, no fractures, no cyanosis Laboratory Results - last 24 hr 04/10/17 04/10/17 04/10/17 08:18 08:18 08:18 WBC 13.2 H RBC 3.58 L Hgb 10.1 L Hct 31 L MCV 87 MCH 28 MCHC 32 RDW 19 H Plt Count 510 H D MPV 7 L Immature Gran % (Auto) 10 H Neut % (Auto) 76.6 Lymph % (Auto) 7.3 L [place] % (Auto) 14.6 H Eos % (Auto) 1.2 Baso % (Auto) 0.3 Absolute Neuts (auto) 10.1 H Absolute Lymphs (auto) 1.0 Absolute Monos (auto) 1.9 H Absolute Eos (auto) 0.2 Absolute Basos (auto) 0 Absolute Nucleated RBC 0 Neutrophils % 68 Band Neutrophils % 1 Lymphocytes % 7 L Monocytes % 14 H Eosinophils % 1 Metamyelocytes % 4 H Myelocytes % 5 H Nucleated RBC % 0 Normal RBC Morphology Not Reportable INR (Anticoag Therapy) Sodium 134 Potassium 4.4 Chloride 98 L Carbon Dioxide 31 Anion Gap 5 BUN 28 H Creatinine 0.67 Est GFR ( Amer) 150.8 Est GFR (Non-Af Amer) 117.3 BUN/Creatinine Ratio 41.8 H Glucose 88 Calcium 8.7 Vancomycin Trough 25.4 04/10/17 08:18 WBC RBC Hgb Hct MCV MCH MCHC RDW Plt Count MPV Immature Gran % (Auto) Neut % (Auto) Lymph % (Auto) [place] % (Auto) Eos % (Auto) Baso % (Auto) Absolute Neuts (auto) Absolute Lymphs (auto) Absolute Monos (auto) Absolute Eos (auto) Absolute Basos (auto) Absolute Nucleated RBC Neutrophils % Band Neutrophils % Lymphocytes % Monocytes % Eosinophils % Metamyelocytes % Myelocytes % Nucleated RBC % Normal RBC Morphology INR (Anticoag Therapy) 2.74 H Sodium Potassium Chloride Carbon Dioxide Anion Gap BUN Creatinine Est GFR ( Amer) Est GFR (Non-Af Amer) BUN/Creatinine Ratio Glucose Calcium Vancomycin Trough CXR: Patchy air space opacities at bases b/l with interval worsening- atlectasis or PNA ECHO: Interval worsening of RV function with increased wall thickness and pressure overload, diastolic dysfunction and normal EF I/R: 71 y o m with severe emphysema, Apergillus PNA, hypoxia, anemia, GI bleed with worsening SOB, hypoxia, clinical picture consistent with cor pulmonale secondary to chronic hypoxia and rt heart strain. Pt with low reserve to begin with with acute worsening secondary to PNA and recent PE Pt likely with Staph PNA Abx as per ID Pt reponded well to Voriconazole for fungal PNA with resolution of cavitary lesion C/w O2 supplemetation He doesnot qualify per current medicare criteria inspite of severe COPD and recurrent hospitalizations as he doesnot have signficant hypercapnia C/w diuretics c/w bronchodilators and nebs D/w Dr Webb
[2017-04-10] MEDS: cefTRIAXone VIAL(*) 1,000 MG in NS 0.9% 50 ML* 50 ML IVPB SCH (15:35)
[2017-04-10] MEDS: Atorvastatin* 20 MG TAB PO SCH (17:20)
[2017-04-10] MEDS: Albuterol/Ipratropium NEB.SOL* Albuterol 2.5 MG/Ipratropium 0.5 MG 3 ML INH SCH (19:15)
[2017-04-10] MEDS: guaiFENesin LIQ* 100 MG/5 ML UDC PO PRN (21:12)
[2017-04-10] MEDS: Docusate CAP* 100 MG PO PRN (21:12)
[2017-04-11] MEDS: Albuterol/Ipratropium NEB.SOL* Albuterol 2.5 MG/Ipratropium 0.5 MG 3 ML INH SCH ×4 (00:52→19:45)
[2017-04-11] MEDS: guaiFENesin LIQ* 100 MG/5 ML UDC PO PRN ×2 (03:54→08:06)
[2017-04-11] MEDS: Mometasone/Formoter 200/5 MDI INH SCH ×2 (07:23→19:48)
[2017-04-11] MEDS: Tiotropium CAP.INH* CAP.INH/18 MCG INH SCH (07:23)
[2017-04-11 07:56] LABS: Hematocrit 31 % (42-52); Mean Corpuscular HGB Conc 32 g/dl (31-36); Mean Corpuscular Hemoglobin 28 pg (27-31); Mean Corpuscular Volume 87 fL (80-94); Mean Platelet Volume 7 um3 (7.4-10.4); Red Blood Count 3.59 10^6/ul (4.0-5.4); Red Cell Distribution Width 20 % (10.5-15); White Blood Count 13.9 10^3/ul (3.5-10.8)
[2017-04-11] MEDS: amLODIPine TAB* 5 MG PO SCH (08:04)
[2017-04-11] MEDS: Cholecalciferol TAB* 1000 UNITS PO SCH (08:04)
[2017-04-11] MEDS: Furosemide TAB* 20 MG PO SCH ×2 (08:04→19:50)
[2017-04-11] MEDS: VORICONAZOLE 50 MG PO SCH ×2 (08:05→19:53)
[2017-04-11] MEDS: Omeprazole CAP* 20 MG PO SCH ×2 (08:05→19:50)
[2017-04-11] MEDS: Docusate CAP* 100 MG PO PRN (08:05)
[2017-04-11] MEDS: Aspirin EC Low Dose* 81 MG TAB.EC PO SCH (08:05)
[2017-04-11] MEDS: Montelukast Sodium TAB* 10 MG PO SCH (08:05)
[2017-04-11 08:10] LABS: BUN/Creatinine Ratio 41.1 (8-20); Calcium 8.8 mg/dL (8.6-10.3); EGFR African American 185.5 (>60); EGFR Non-African American 144.2 (>60); Potassium 4.3 mmol/L (3.5-5.0)
--- NOTE | 2017-04-11 12:22 | PN ---
Subjective Date of Service: 04/11/17 Interval History: Mr. Vargas states that he was feeling reasonably well until about an hour ago when his O2 saturation suddenly dropped. It responded well to brief increase in O2 to 10L but is now back down to 8L NC. He reports continued productive cough. He denies chest pain. He is tolerating oral intake well and denies nausea or abdominal pain. Objective Active Medications: Albuterol/Ipratropium (Duoneb (Albuterol 2.5 Mg/Ipratropium 0.5 Mg)) 1 neb INH [id number] AWAKE SHAUNA Amlodipine Besylate (Norvasc Tab*) 10 mg PO DAILY SHAUNA Aspirin (Aspirin Ec Low Dose*) 81 mg PO DAILY SHAUNA Atorvastatin Calcium (Lipitor*) 20 mg PO QPM SHAUNA Cholecalciferol (Vitamin D Tab*) 1,000 units PO DAILY SHAUNA Cyclobenzaprine HCl (Flexeril Tab*) 10 mg PO TID PRN Docusate Sodium (Colace Cap*) 100 mg PO BID PRN Furosemide (Lasix Tab*) 20 mg PO BID SHAUNA Guaifenesin (Robitussin*) 10 ml PO Q4H PRN Ceftriaxone Sodium 1,000 mg/ (Sodium Chloride) 50 mls @ 200 mls/hr IVPB Q24H SHAUNA Magnesium Hydroxide (Milk Of Magnesia Liq*) 30 ml PO Q6H PRN Mometasone Furoate/Formoterol Fumar (Dulera 200/5 Mdi*) 2 puff INH BID SHAUNA Montelukast Sodium (Singulair Tab*) 10 mg PO DAILY SHAUNA Omeprazole (Prilosec Cap*) 20 mg PO BID SHAUNA Oxycodone/Acetaminophen (Percocet 5/325 Tab*) 1 tab PO Q4H PRN Polyethylene Glycol/Electrolytes (Miralax*) 17 gm PO DAILY PRN Senna (Senokot Tab*) 1 tab PO BEDTIME PRN Sodium Chloride (Sodium Chloride 0.65% Nasal Drops*) 1 drop BOTH NARES Q4H PRN Tiotropium [place] (Spiriva Cap.Inh*) 1 cap INH DAILY SHAUNA Voriconazole (Vfend (Nf)) 200 mg PO BID [facility] Vital Signs 04/10/17 04/10/17 04/10/17 14:14 15:30 19:21 Temperature 97.7 F Pulse Rate 80 90 Respiratory 20 20 18 Rate Blood Pressure 112/42 (mmHg) O2 Sat by Pulse 90 88 Oximetry 04/10/17 04/10/17 04/10/17 19:41 20:00 20:57 Temperature 97.9 F Pulse Rate 95 Respiratory 20 18 22 Rate Blood Pressure 112/60 (mmHg) O2 Sat by Pulse 91 Oximetry 04/10/17 04/10/17 04/11/17 22:57 23:21 01:45 Temperature 98.0 F Pulse Rate 97 Respiratory 18 20 Rate Blood Pressure 139/57 (mmHg) O2 Sat by Pulse 90 88 Oximetry 04/11/17 04/11/17 04/11/17 03:29 07:23 07:31 Temperature 98.1 F 98.0 F Pulse Rate 86 94 92 Respiratory 20 89 18 Rate Blood Pressure 117/53 130/55 (mmHg) O2 Sat by Pulse 92 16 92 Oximetry 04/11/17 04/11/17 04/11/17 08:00 08:05 10:00 Temperature Pulse Rate Respiratory 22 18 18 Rate Blood Pressure (mmHg) O2 Sat by Pulse Oximetry Oxygen Devices in Use Now: Nasal Cannula - 8L-92% Appearance: Male sitting up in chair in NAD Eyes: No Scleral Icterus Ears/Nose/Mouth/Throat: Mucous Membranes Moist Neck: Trachea Midline Respiratory: Symmetrical Chest Expansion and Respiratory Effort, - - Diminished in bases Cardiovascular: NL Sounds; No Murmurs; No JVD, No Edema Abdominal: NL Sounds; No Tenderness; No Distention Lymphatic: No Cervical Adenopathy Extremities: No Edema Skin: No Rash or Ulcers Neurological: Alert and Oriented x 3, NL Muscle Strength and Tone Nutrition: Taking PO's Result Diagrams: 04/11/17 07:46 04/11/17 07:46 Additional Lab and Data: Lab Results 04/07/17 04/07/17 04/07/17 Range/Units 07:07 07:07 07:07 WBC 13.6 H (3.5-10.8) 10^3/ul RBC 3.78 L (4.0-5.4) 10^6/ul Hgb 10.6 L (14.0-18.0) g/dl Hct 33 L (42-52) % MCV 88 (80-94) fL MCH 28 (27-31) pg MCHC 32 (31-36) g/dl RDW 19 H (10.5-15) % Plt Count 530 H D (150-450) 10^3/ul MPV 8 (7.4-10.4) um3 Neut % (Auto) 76.8 (38-83) % Lymph % (Auto) 6.8 L (25-47) % [place] % (Auto) 15.3 H (1-9) % Eos % (Auto) 1.0 (0-6) % Baso % (Auto) 0.1 (0-2) % Absolute Neuts (auto) 10.5 H (1.5-7.7) 10^3/ul Absolute Lymphs (auto) 0.9 L (1.0-4.8) 10^3/ul Absolute Monos (auto) 2.1 H (0-0.8) 10^3/ul Absolute Eos (auto) 0.1 (0-0.6) 10^3/ul Absolute Basos (auto) 0 (0-0.2) 10^3/ul Absolute Nucleated RBC 0.01 10^3/ul Nucleated RBC % 0 INR (Anticoag Therapy) (0.89-1.11) APTT (26.0-36.3) seconds Patient Temperature ABG pH (7.35-7.45) ABG pCO2 (35-45) mmHg ABG pO2 (80-100) mmHg ABG HCO3 (19-31) mmol/L ABG O2 Saturation (95-98) % ABG Base Excess (-2.0-2.0) Respiration Rate O2 Delivery Device Ventilator Type Vent Mode FiO2 Inspiratory Time PEEP Pressure Support Pressure Control EPAP IPAP BiPAP Sodium 124 L (133-145) mmol/L Potassium 6.1 H* (3.5-5.0) mmol/L Chloride 89 L (101-111) mmol/L Carbon Dioxide 26 (22-32) mmol/L Anion Gap 9 (2-11) mmol/L BUN 24 (6-24) mg/dL Creatinine 0.74 (0.67-1.17) mg/dL Est GFR ( Amer) 134.5 (>60) Est GFR (Non-Af Amer) 104.6 (>60) BUN/Creatinine Ratio 32.4 H (8-20) Glucose 92 (70-100) mg/dL Lactic Acid 1.2 (0.5-2.0) mmol/L Calcium 9.4 (8.6-10.3) mg/dL Total Bilirubin 0.40 (0.2-1.0) mg/dL AST 33 (13-39) U/L ALT 24 (7-52) U/L Alkaline Phosphatase 118 H (34-104) U/L Troponin I 0.04 H* (<0.04) ng/mL B-Natriuretic Peptide ( - 100) pg/mL Total Protein 6.8 (6.4-8.9) g/dL Albumin 3.2 (3.2-5.2) g/dL Globulin 3.6 (2-4) g/dL Albumin/Globulin Ratio 0.9 L (1-3) 04/07/17 04/07/17 04/07/17 Range/Units 07:07 07:07 07:30 WBC (3.5-10.8) 10^3/ul RBC (4.0-5.4) 10^6/ul Hgb (14.0-18.0) g/dl Hct (42-52) % MCV (80-94) fL MCH (27-31) pg MCHC (31-36) g/dl RDW (10.5-15) % Plt Count (150-450) 10^3/ul MPV (7.4-10.4) um3 Neut % (Auto) (38-83) % Lymph % (Auto) (25-47) % [place] % (Auto) (1-9) % Eos % (Auto) (0-6) % Baso % (Auto) (0-2) % Absolute Neuts (auto) (1.5-7.7) 10^3/ul Absolute Lymphs (auto) (1.0-4.8) 10^3/ul Absolute Monos (auto) (0-0.8) 10^3/ul Absolute Eos (auto) (0-0.6) 10^3/ul Absolute Basos (auto) (0-0.2) 10^3/ul Absolute Nucleated RBC 10^3/ul Nucleated RBC % INR (Anticoag Therapy) 1.44 H (0.89-1.11) APTT 33.5 (26.0-36.3) seconds Patient Temperature Not Reportable ABG pH 7.41 (7.35-7.45) ABG pCO2 43 (35-45) mmHg ABG pO2 79 L (80-100) mmHg ABG HCO3 26.6 (19-31) mmol/L ABG O2 Saturation 94.2 L (95-98) % ABG Base Excess 2.3 H (-2.0-2.0) Respiration Rate 12 O2 Delivery Device bipap Ventilator Type Not Reportable Vent Mode s/t FiO2 50 Inspiratory Time 1.0 PEEP Not Reportable Pressure Support Not Reportable Pressure Control Not Reportable EPAP 6 IPAP 12 BiPAP Not Reportable Sodium (133-145) mmol/L Potassium (3.5-5.0) mmol/L Chloride (101-111) mmol/L Carbon Dioxide (22-32) mmol/L Anion Gap (2-11) mmol/L BUN (6-24) mg/dL Creatinine (0.67-1.17) mg/dL Est GFR ( Amer) (>60) Est GFR (Non-Af Amer) (>60) BUN/Creatinine Ratio (8-20) Glucose (70-100) mg/dL Lactic Acid (0.5-2.0) mmol/L Calcium (8.6-10.3) mg/dL Total Bilirubin (0.2-1.0) mg/dL AST (13-39) U/L ALT (7-52) U/L Alkaline Phosphatase (34-104) U/L Troponin I (<0.04) ng/mL B-Natriuretic Peptide 128 H ( - 100) pg/mL Total Protein (6.4-8.9) g/dL Albumin (3.2-5.2) g/dL Globulin (2-4) g/dL Albumin/Globulin Ratio (1-3) Microbiology and Other Data: Microbiology 04/07/17 15:34 Gram Stain - Final Sputum Expectorated Sputum Culture - Preliminary Staphylococcus Aureus Assess/Plan/Problems-Billing Mr Celis is a 71 yo M with a h/o chronic hypoxic respiratory failure secondary to COPD on O2, 3.5L continuously, invasive pulmonary aspergillosis, recent dx for PE and CAD who presented to the ER with c/o progressive SOB, gurgling respirations and hypoxia. - Patient Problems (1) SOB (shortness of breath) Comment: - Improved SOB but remains hypoxic. - Appreciate consultations from Dr. Means and Dr. Israel. Likely multifactorial secondary to baseline COPD, invasive pulmonary aspergillosis, newly diagnosed PE and now pna. - Switch to bactrim based on susceptibilities for staph and stenotrophomas. Continue voraconazale for aspergillus. (2) Hypoxia Comment: - Remains on 8L NC, unable to wean. But does feel somewhat better. - The patient has had acute on chronic hypoxic respiratory failure secondary to pneumonia in setting of COPD. (3) Pneumonia Comment: - Sputum has now grown s aureus and stenotrophomonas multophilia. Continue ceftriaxone per Dr. Aparicio recommendations. (4) Aspergillosis Comment: - Continue voriconazole. Follow up with Dr. Means as outpatient. (5) Atrial fibrillation Comment: - In sinus at this time. (6) Pulmonary embolism Comment: - INR 2.51. - Continue coumadin. (7) COPD (chronic obstructive pulmonary disease) Comment: - No signs of exacerbation. - Continue home inhaler regimen. (8) HLD (hyperlipidemia) Comment: - Continue atorvastatin. (9) HTN (hypertension) Comment: - BP is well controlled. - Contnue amlodipine and furosemide. (10) Full code status (11) DVT prophylaxis Current Visit: Yes Status: Acute Code(s): JGQ2902 - SNOMED Code(s): 448749666 Comment: Therapeutic INR. Status and Disposition: Inpatient with expected LOS > 2 days. Anticipate discharge to home when medically stable.
[2017-04-11] MEDS: traMADol TAB* 50 MG PO SCH ×2 (13:11→19:50)
[2017-04-11] MEDS: Warfarin TAB(*) 4 MG PO SCH (15:38)
[2017-04-11] MEDS: cefTRIAXone VIAL(*) 1,000 MG in NS 0.9% 50 ML* 50 ML IVPB SCH (15:38)
[2017-04-11] MEDS: oxyCODONE/Acetamin 5/325 MG* TAB PO PRN (17:12)
[2017-04-11] MEDS: Atorvastatin* 20 MG TAB PO SCH (17:12)
[2017-04-11] MEDS: Sulfamethox/Trimethoprim DS 800/160* TAB PO SCH (19:54)
[2017-04-12] MEDS: Albuterol/Ipratropium NEB.SOL* Albuterol 2.5 MG/Ipratropium 0.5 MG 3 ML INH SCH ×4 (00:15→19:52)
[2017-04-12] MEDS: oxyCODONE/Acetamin 5/325 MG* TAB PO PRN ×4 (00:15→21:14)
[2017-04-12] MEDS: Benzonatate CAP* 100 MG PO SCH ×3 (01:26→17:11)
[2017-04-12] MEDS: guaiFENesin LIQ* 100 MG/5 ML UDC PO PRN ×2 (06:55→21:15)
[2017-04-12] MEDS: Codeine TAB* 15 MG PO PRN (06:56)
[2017-04-12] MEDS: Mometasone/Formoter 200/5 MDI INH SCH ×2 (07:21→19:52)
[2017-04-12] MEDS: Tiotropium CAP.INH* CAP.INH/18 MCG INH SCH (07:22)
[2017-04-12 07:40] LABS: Hematocrit 30 % (42-52); Hemoglobin 9.7 g/dl (14.0-18.0); Mean Corpuscular HGB Conc 32 g/dl (31-36); Mean Corpuscular Hemoglobin 28 pg (27-31); Mean Corpuscular Volume 87 fL (80-94); Mean Platelet Volume 7 um3 (7.4-10.4); Red Blood Count 3.48 10^6/ul (4.0-5.4); Red Cell Distribution Width 19 % (10.5-15); White Blood Count 13.5 10^3/ul (3.5-10.8)
[2017-04-12 07:41] LABS: Add Diff/Slide Review? Slide Review Added; Comments Flag Yes
[2017-04-12 08:10] LABS: Hypochromasia 1+; Immature Granulocytes 4 % (0-9); Myelocytes % 2 % (0-1); Neutrophil % 76 % (38-83)
--- NOTE | 2017-04-12 09:18 | PN ---
Subjective Date of Service: 04/12/17 Interval History: Patient seen and examined at bedside. Pt states that he is feeling much better since starting the vapotherm. Pt states that prior to the vapotherm, he had no appetite and was feeling more shortness of breath. Denies fever, chills, chest discomfort, N/V/D. He reports a productive cough. [employer]: Sinus rhythm, rate 80-90s. Family History: Unchanged from Admission Social History: Unchanged from Admission Past Medical History: Unchanged from Admission Objective Active Medications: Albuterol/Ipratropium (Duoneb (Albuterol 2.5 Mg/Ipratropium 0.5 Mg)) 1 neb INH [id number] AWAKE SHAUNA Amlodipine Besylate (Norvasc Tab*) 10 mg PO DAILY SHAUNA Aspirin (Aspirin Ec Low Dose*) 81 mg PO DAILY SHAUNA Atorvastatin Calcium (Lipitor*) 20 mg PO QPM SHAUNA Benzonatate (Tessalon Cap*) 200 mg PO Q8H SHAUNA Cholecalciferol (Vitamin D Tab*) 1,000 units PO DAILY SHAUNA Codeine Sulfate (Codeine Tab*) 15 mg PO Q4H PRN Reason: COUGH Cyclobenzaprine HCl (Flexeril Tab*) 10 mg PO TID PRN Reason: PAIN Docusate Sodium (Colace Cap*) 100 mg PO BID PRN Reason: CONSTIPATION Furosemide (Lasix Tab*) 20 mg PO BID SHAUNA Guaifenesin (Robitussin*) 10 ml PO Q4H PRN Reason: COUGH Magnesium Hydroxide (Milk Of Magnesia Liq*) 30 ml PO Q6H PRN Reason: CONSTIPATION Mometasone Furoate/Formoterol Fumar (Dulera 200/5 Mdi*) 2 puff INH BID [facility] Reason: Protocol Montelukast Sodium (Singulair Tab*) 10 mg PO DAILY SHAUNA Omeprazole (Prilosec Cap*) 20 mg PO BID SHAUNA Oxycodone/Acetaminophen (Percocet 5/325 Tab*) 1 tab PO Q4H PRN Reason: Pain Pharmacy Profile Note (Coumadin Daily Reminder*) 0 note FOLLOW UP 1700 SHAUNA Polyethylene Glycol/Electrolytes (Miralax*) 17 gm PO DAILY PRN Reason: CONSTIPATION Senna (Senokot Tab*) 1 tab PO BEDTIME PRN Reason: CONSTIPATION Sodium Chloride (Sodium Chloride 0.65% Nasal Drops*) 1 drop BOTH NARES Q4H PRN Reason: nasal congestion Tiotropium [place] (Spiriva Cap.Inh*) 1 cap INH DAILY [facility] Tramadol HCl (Ultram*) 50 mg PO TID [facility] Trimethoprim/Sulfamethoxazole (Bactrim Ds 800/160 Tab*) 1 tab PO BID [facility] Voriconazole (Vfend (Nf)) 200 mg PO BID [facility] Reason: Protocol Warfarin Sodium (Coumadin Tab(*)) 4 mg PO DAILY@1700 [facility] Reason: Protocol Vital Signs 04/11/17 04/11/17 04/11/17 10:00 11:16 13:11 Temperature 97.8 F Pulse Rate 98 Respiratory 18 16 18 Rate Blood Pressure 118/53 (mmHg) O2 Sat by Pulse 92 Oximetry 04/11/17 04/11/17 04/11/17 13:15 15:11 15:27 Temperature 98.0 F Pulse Rate 94 98 Respiratory 18 18 18 Rate Blood Pressure 110/58 (mmHg) O2 Sat by Pulse 98 91 Oximetry 04/11/17 04/11/17 04/11/17 17:12 19:54 20:00 Temperature Pulse Rate 96 Respiratory 18 20 20 Rate Blood Pressure (mmHg) O2 Sat by Pulse 96 Oximetry 04/11/17 04/11/17 04/11/17 20:08 21:54 23:34 Temperature 98.1 F 97.9 F Pulse Rate 96 96 88 Respiratory 18 20 18 Rate Blood Pressure 130/47 126/53 (mmHg) O2 Sat by Pulse 92 93 92 Oximetry 04/12/17 04/12/17 04/12/17 00:15 00:16 02:15 Temperature Pulse Rate 89 Respiratory 22 20 18 Rate Blood Pressure (mmHg) O2 Sat by Pulse 90 Oximetry 04/12/17 04/12/17 04/12/17 03:14 06:27 06:56 Temperature 97.7 F Pulse Rate 89 86 Respiratory 18 12 24 Rate Blood Pressure 128/67 (mmHg) O2 Sat by Pulse 93 92 Oximetry 04/12/17 04/12/17 07:27 08:26 Temperature 97.2 F 99.2 F Pulse Rate 94 Respiratory 18 Rate Blood Pressure 134/61 (mmHg) O2 Sat by Pulse 90 Oximetry Oxygen Devices in Use Now: High Flow Nasal Cannula Appearance: NAD, sitting up in a chair Ears/Nose/Mouth/Throat: Mucous Membranes Moist Respiratory: Symmetrical Chest Expansion and Respiratory Effort, - - Lung sounds diminished with some rhonchi Cardiovascular: NL Sounds; No Murmurs; No JVD, RRR Abdominal: NL Sounds; No Tenderness; No Distention Extremities: No Edema Skin: No Rash or Ulcers Neurological: Alert and Oriented x 3, NL Muscle Strength and Tone Lines/Tubes/Other Access: Clean, Dry and Intact Peripheral IV - site benign Nutrition: Taking PO's Result Diagrams: 04/12/17 07:20 04/11/17 07:46 Additional Lab and Data: Microbiology and Other Data: Microbiology 04/07/17 15:34 Gram Stain - Final Sputum Expectorated Sputum Culture - Preliminary Staphylococcus Aureus Assess/Plan/Problems-Billing Mr Celis is a 71 yo M with a h/o chronic hypoxic respiratory failure secondary to COPD on O2, 3.5L continuously, invasive pulmonary aspergillosis, recent dx for PE and CAD who presented to the ER with c/o progressive SOB, gurgling respirations and hypoxia. - Patient Problems (1) SOB (shortness of breath) Code(s): R06.02 - SHORTNESS OF BREATH SNOMED Code(s): 908815706 Comment: - Improved SOB but remains hypoxic, now on vapotherm. - Appreciate consultations from Dr. Means and Dr. Israel. Likely multifactorial secondary to baseline COPD, invasive pulmonary aspergillosis, newly diagnosed PE and now pna. - Switch to bactrim based on susceptibilities for staph and stenotrophomas. Continue voraconazale for aspergillus. (2) Hypoxia Code(s): R09.02 - HYPOXEMIA SNOMED Code(s): 098302875 Comment: - O2 increased to 12L NC this morning, unable to wean. Stated on vapotherm and feels somewhat better. - The patient has had acute on chronic hypoxic respiratory failure secondary to pneumonia in setting of COPD. - Plan to wean O2 as able. (3) Pneumonia Code(s): J18.9 - PNEUMONIA, UNSPECIFIED ORGANISM SNOMED Code(s): 845725429 Comment: - Sputum has now grown s aureus and stenotrophomonas multophilia. - Continue ceftriaxone per Dr. Aparicio recommendations. (4) Aspergillosis Code(s): B44.9 - ASPERGILLOSIS, UNSPECIFIED SNOMED Code(s): 40277371 Comment: - Continue voriconazole. - Follow up with Dr. Means as outpatient. (5) Atrial fibrillation Code(s): I48.91 - UNSPECIFIED ATRIAL FIBRILLATION SNOMED Code(s): 30017396 Comment: - In sinus at this time. (6) Pulmonary embolism Code(s): I26.99 - OTHER PULMONARY EMBOLISM WITHOUT ACUTE COR PULMONALE SNOMED Code(s): 88855407 Comment: - INR is therapeutic at 2.51. - Continue coumadin. (7) COPD (chronic obstructive pulmonary disease) Code(s): J44.9 - CHRONIC OBSTRUCTIVE PULMONARY DISEASE, UNSPECIFIED SNOMED Code(s): 82740002 Comment: - No signs of exacerbation. - Continue home inhaler regimen. (8) HLD (hyperlipidemia) Code(s): E78.5 - HYPERLIPIDEMIA, UNSPECIFIED SNOMED Code(s): 53690856 Comment: - Continue atorvastatin. (9) HTN (hypertension) Code(s): I10 - ESSENTIAL (PRIMARY) HYPERTENSION SNOMED Code(s): 38032638 Comment: - BP is well controlled. - Contnue amlodipine and furosemide. (10) DVT prophylaxis Code(s): TWV5110 - SNOMED Code(s): 687413203 Comment: - Warfarin, therapeutic INR. (11) Full code status Code(s): Z78.9 - OTHER SPECIFIED HEALTH STATUS SNOMED Code(s): 548264159 Status and Disposition: Inpatient with expected LOS > 2 days. Anticipate discharge to home when medically stable.
[2017-04-12] MEDS: amLODIPine TAB* 5 MG PO SCH (09:30)
[2017-04-12] MEDS: Cholecalciferol TAB* 1000 UNITS PO SCH (09:30)
[2017-04-12] MEDS: Omeprazole CAP* 20 MG PO SCH ×2 (09:30→21:11)
[2017-04-12] MEDS: Aspirin EC Low Dose* 81 MG TAB.EC PO SCH (09:31)
[2017-04-12] MEDS: Montelukast Sodium TAB* 10 MG PO SCH (09:31)
[2017-04-12] MEDS: Sulfamethox/Trimethoprim DS 800/160* TAB PO SCH ×2 (09:31→21:09)
[2017-04-12] MEDS: traMADol TAB* 50 MG PO SCH ×3 (09:31→21:11)
[2017-04-12] MEDS: Furosemide TAB* 20 MG PO SCH ×2 (09:31→21:09)
--- NOTE | 2017-04-12 09:48 | RAD ---
Indication: Acute hypoxic respiratory failure. Chronic obstructive pulmonary disease. Comparison: April 07, 2017 chest radiograph and March 31, 2017 CT. Technique: Upright AP 0039 hours Report: Persistent patchy consolidation at the bilateral lung bases most consistent with inflammatory infiltrate superimposed on stigmata of chronic obstructive pulmonary disease and emphysema. Negative for cardiomegaly. Prominent central pulmonary vasculature with peripheral attenuation likely reflecting pulmonary arterial hypertension. IMPRESSION: No significant change in bibasilar alveolar opacities likely reflecting pneumonia.
[2017-04-12] MEDS: VORICONAZOLE 50 MG PO SCH ×2 (09:59→21:09)
[2017-04-12] MEDS: Docusate CAP* 100 MG PO PRN (11:49)
[2017-04-12] MEDS: Warfarin TAB(*) 4 MG PO SCH (17:11)
[2017-04-12] MEDS: Atorvastatin* 20 MG TAB PO SCH (17:11)
[2017-04-13] MEDS: Benzonatate CAP* 100 MG PO SCH ×3 (00:41→16:17)
[2017-04-13] MEDS: Albuterol/Ipratropium NEB.SOL* Albuterol 2.5 MG/Ipratropium 0.5 MG 3 ML INH SCH ×5 (01:30→19:41)
[2017-04-13] MEDS: oxyCODONE/Acetamin 5/325 MG* TAB PO PRN ×2 (05:25→16:17)
[2017-04-13] MEDS: Mometasone/Formoter 200/5 MDI INH SCH ×2 (07:42→19:42)
[2017-04-13] MEDS: Tiotropium CAP.INH* CAP.INH/18 MCG INH SCH (07:42)
--- NOTE | 2017-04-13 07:57 | PN ---
Subjective Date of Service: 04/13/17 Interval History: Patient seen and examined at bedside. Mr. Celis states that his breathing has been better with Vapotherm. He denies CP, SOB, fever/chills, n/v, leg pain. He does endorse not sleeping well and "feeling tired all the time." He is currently out of bed to chair. Lynnette, pt's , is in room with him; she feels he is at his baseline. Telemetry: Sinus rhythm 80s Family History: Unchanged from Admission Social History: Unchanged from Admission Past Medical History: Unchanged from Admission Objective Active Medications: Albuterol/Ipratropium (Duoneb (Albuterol 2.5 Mg/Ipratropium 0.5 Mg)) 1 neb INH [id number] AWAKE [facility] Last Admin: 04/13/17 07:42 Dose: 1 neb Albuterol/Ipratropium (Duoneb (Albuterol 2.5 Mg/Ipratropium 0.5 Mg)) 1 neb INH Q4H PRN PRN Reason: SOB/WHEEZING Amlodipine Besylate (Norvasc Tab*) 10 mg PO DAILY [facility] Last Admin: 04/12/17 09:30 Dose: 10 mg Aspirin (Aspirin Ec Low Dose*) 81 mg PO DAILY [facility] Last Admin: 04/12/17 09:31 Dose: 81 mg Atorvastatin Calcium (Lipitor*) 20 mg PO QPM [facility] Last Admin: 04/12/17 17:11 Dose: 20 mg Benzonatate (Tessalon Cap*) 200 mg PO Q8H [facility] Last Admin: 04/13/17 00:41 Dose: 200 mg Cholecalciferol (Vitamin D Tab*) 1,000 units PO DAILY [facility] Last Admin: 04/12/17 09:30 Dose: 1,000 units Codeine Sulfate (Codeine Tab*) 15 mg PO Q4H PRN PRN Reason: COUGH Last Admin: 04/12/17 06:56 Dose: 15 mg Cyclobenzaprine HCl (Flexeril Tab*) 10 mg PO TID PRN PRN Reason: PAIN Last Admin: 04/11/17 08:05 Dose: 10 mg Docusate Sodium (Colace Cap*) 100 mg PO BID PRN PRN Reason: CONSTIPATION Last Admin: 04/12/17 11:49 Dose: 100 mg Furosemide (Lasix Tab*) 20 mg PO BID [facility] Last Admin: 04/12/17 21:09 Dose: 20 mg Guaifenesin (Robitussin*) 10 ml PO Q4H PRN PRN Reason: COUGH Last Admin: 04/12/17 21:15 Dose: 10 ml Magnesium Hydroxide (Milk Of Magnesia Liq*) 30 ml PO Q6H PRN PRN Reason: CONSTIPATION Mometasone Furoate/Formoterol Fumar (Dulera 200/5 Mdi*) 2 puff INH BID [facility] PRN Reason: Protocol Last Admin: 04/13/17 07:42 Dose: 2 puff Montelukast Sodium (Singulair Tab*) 10 mg PO DAILY [facility] Last Admin: 04/12/17 09:31 Dose: 10 mg Omeprazole (Prilosec Cap*) 20 mg PO BID [facility] Last Admin: 04/12/17 21:11 Dose: 20 mg Oxycodone/Acetaminophen (Percocet 5/325 Tab*) 1 tab PO Q4H PRN PRN Reason: Pain Last Admin: 04/13/17 05:25 Dose: 1 tab Pharmacy Profile Note (Coumadin Daily Reminder*) 0 note FOLLOW UP 1700 [facility] Last Admin: 04/12/17 17:12 Dose: 1 note Polyethylene Glycol/Electrolytes (Miralax*) 17 gm PO DAILY PRN PRN Reason: CONSTIPATION Senna (Senokot Tab*) 1 tab PO BEDTIME PRN PRN Reason: CONSTIPATION Sodium Chloride (Sodium Chloride 0.65% Nasal Drops*) 1 drop BOTH NARES Q4H PRN PRN Reason: nasal congestion Tiotropium [place] (Spiriva Cap.Inh*) 1 cap INH DAILY [facility] Last Admin: 04/13/17 07:42 Dose: 1 cap Tramadol HCl (Ultram*) 50 mg PO TID [facility] Last Admin: 04/12/17 21:11 Dose: 50 mg Trimethoprim/Sulfamethoxazole (Bactrim Ds 800/160 Tab*) 1 tab PO BID [facility] Last Admin: 04/12/17 21:09 Dose: 1 tab Voriconazole (Vfend (Nf)) 200 mg PO BID [facility] PRN Reason: Protocol Last Admin: 04/12/17 21:09 Dose: 200 mg Warfarin Sodium (Coumadin Tab(*)) 4 mg PO DAILY@1700 [facility] PRN Reason: Protocol Last Admin: 04/12/17 17:11 Dose: 4 mg Vital Signs 04/12/17 04/12/17 04/12/17 08:00 08:03 08:26 Temperature 99.2 F 99.2 F Pulse Rate 90 91 Respiratory 18 18 Rate Blood Pressure 130/68 (mmHg) O2 Sat by Pulse 91 91 Oximetry 04/12/17 04/12/17 04/12/17 08:30 09:00 09:30 Temperature Pulse Rate 92 93 84 Respiratory 16 18 13 Rate Blood Pressure 131/62 123/72 117/64 (mmHg) O2 Sat by Pulse 92 94 98 Oximetry 04/12/17 04/12/17 04/12/17 10:00 10:30 11:00 Temperature Pulse Rate 84 93 80 Respiratory 12 15 19 Rate Blood Pressure 115/59 128/65 115/54 (mmHg) O2 Sat by Pulse 97 92 89 Oximetry 04/12/17 04/12/17 04/12/17 11:49 12:00 13:00 Temperature 98.7 F Pulse Rate 80 78 Respiratory 16 13 Rate Blood Pressure 117/67 121/67 (mmHg) O2 Sat by Pulse 95 96 Oximetry 04/12/17 04/12/17 04/12/17 13:35 14:00 14:27 Temperature Pulse Rate 80 80 Respiratory 14 16 16 Rate Blood Pressure 97/61 (mmHg) O2 Sat by Pulse 95 95 Oximetry 04/12/17 04/12/17 04/12/17 15:00 15:25 15:49 Temperature 99 F Pulse Rate 72 Respiratory 14 17 Rate Blood Pressure 109/57 (mmHg) O2 Sat by Pulse 97 Oximetry 04/12/17 04/12/17 04/12/17 16:00 17:00 17:52 Temperature Pulse Rate 76 74 Respiratory 19 18 14 Rate Blood Pressure 104/57 102/57 (mmHg) O2 Sat by Pulse 95 96 Oximetry 04/12/17 04/12/17 04/12/17 18:00 19:00 19:53 Temperature Pulse Rate 79 88 75 Respiratory 21 16 20 Rate Blood Pressure 129/59 147/77 (mmHg) O2 Sat by Pulse 96 81 96 Oximetry 04/12/17 04/12/17 04/12/17 20:00 21:00 21:14 Temperature 98.3 F Pulse Rate 75 72 Respiratory 15 17 17 Rate Blood Pressure 128/65 124/59 (mmHg) O2 Sat by Pulse 94 100 Oximetry 04/12/17 04/12/17 04/12/17 21:45 22:00 23:00 Temperature Pulse Rate 76 76 Respiratory 11 13 14 Rate Blood Pressure 133/61 122/63 (mmHg) O2 Sat by Pulse 97 97 Oximetry 04/12/17 04/13/17 04/13/17 23:10 00:00 00:02 Temperature 98.2 F Pulse Rate 76 74 75 Respiratory 17 13 16 Rate Blood Pressure 120/73 (mmHg) O2 Sat by Pulse 97 98 92 Oximetry 04/13/17 04/13/17 04/13/17 01:00 02:00 03:00 Temperature Pulse Rate 73 72 74 Respiratory 14 13 12 Rate Blood Pressure 116/60 129/53 123/60 (mmHg) O2 Sat by Pulse 95 97 98 Oximetry 04/13/17 04/13/17 04/13/17 03:31 04:00 04:01 Temperature 97.7 F Pulse Rate 84 91 87 Respiratory 17 22 16 Rate Blood Pressure 113/86 (mmHg) O2 Sat by Pulse 93 86 85 Oximetry 04/13/17 04/13/17 04/13/17 05:00 05:25 06:00 Temperature Pulse Rate 78 76 Respiratory 17 23 11 Rate Blood Pressure 116/64 125/62 (mmHg) O2 Sat by Pulse 94 99 Oximetry 04/13/17 04/13/17 04/13/17 07:00 07:30 07:48 Temperature Pulse Rate 76 84 Respiratory 13 16 15 Rate Blood Pressure 121/63 (mmHg) O2 Sat by Pulse 92 94 Oximetry 04/13/17 07:49 Temperature 98.2 F Pulse Rate Respiratory Rate Blood Pressure (mmHg) O2 Sat by Pulse Oximetry Oxygen Devices in Use Now: High Flow Nasal Cannula Appearance: Older male patient, OOB to chair, in NAD Eyes: No Scleral Icterus Ears/Nose/Mouth/Throat: Clear Oropharnyx, Mucous Membranes Moist Neck: NL Appearance and Movements; NL JVP Respiratory: Symmetrical Chest Expansion and Respiratory Effort, - - Diminished lung sounds, fair aeration throughout all lung jules, rhonchi heard throughout Cardiovascular: NL Sounds; No Murmurs; No JVD, RRR, - - 2+ pitting edema to BLE Abdominal: NL Sounds; No Tenderness; No Distention Extremities: No Clubbing, Cyanosis Skin: No Rash or Ulcers Neurological: Alert and Oriented x 3, NL Muscle Strength and Tone Lines/Tubes/Other Access: Clean, Dry and Intact Peripheral IV Nutrition: Taking PO's Result Diagrams: 04/12/17 07:20 04/13/17 08:15 Additional Lab and Data: Microbiology and Other Data: Microbiology 04/07/17 15:34 Gram Stain - Final Sputum Expectorated Sputum Culture - Preliminary Staphylococcus Aureus Assess/Plan/Problems-Billing Mr Celis is a 71 yo M with a h/o chronic hypoxic respiratory failure secondary to COPD on O2, 3.5L continuously, invasive pulmonary aspergillosis, recent dx for PE and CAD who presented to the ER with c/o progressive SOB, gurgling respirations and hypoxia. - Patient Problems (1) Acute and chronic respiratory failure with hypoxia Code(s): J96.21 - ACUTE AND CHRONIC RESPIRATORY FAILURE WITH HYPOXIA Comment: Secondary to pneumonia, invasive aspergillosis, and PE in the setting of COPD Patient more comfortable with improved respiratory status following initiation of Vapotherm. Will give IV furosemide in addition to PO doses today for suspected pulm congestion. Wean from Vapotherm and wean down O2 as able. Appreciate pulmonology and ID consults. (2) SOB (shortness of breath) Code(s): R06.02 - SHORTNESS OF BREATH Comment: Improved SOB but remains hypoxic, now on vapotherm. Appreciate consultations from Dr. Means and Dr. Israel. Likely multifactorial secondary to baseline COPD, invasive pulmonary aspergillosis, newly diagnosed PE, and now pna. Continue Bactrim, based on susceptibilities for staph and stenotrophomas. Continue voriconazole for aspergillus. (3) Pneumonia Code(s): J18.9 - PNEUMONIA, UNSPECIFIED ORGANISM Comment: Sputum has now grown S. aureus and stenotrophomonas multophilia. Continue ceftriaxone, per Dr. Means's recommendations. (4) Pulmonary embolism Code(s): I26.99 - OTHER PULMONARY EMBOLISM WITHOUT ACUTE COR PULMONALE Comment : INR pending Continue warfarin. (5) Aspergillosis Code(s): B44.9 - ASPERGILLOSIS, UNSPECIFIED Comment: Continue voriconazole. Follow up with Dr. Means as outpatient. (6) Atrial fibrillation Code(s): I48.91 - UNSPECIFIED ATRIAL FIBRILLATION Comment: Hx of paroxysmal afib Currently in sinus rhythm Continue to monitor Anticoagulated with warfarin (7) COPD (chronic obstructive pulmonary disease) Code(s): J44.9 - CHRONIC OBSTRUCTIVE PULMONARY DISEASE, UNSPECIFIED Comment: No signs of exacerbation. Continue home inhaler regimen. (8) HTN (hypertension) Code(s): I10 - ESSENTIAL (PRIMARY) HYPERTENSION Comment: Normotensive Continue amlodipine and furosemide. (9) HLD (hyperlipidemia) Code(s): E78.5 - HYPERLIPIDEMIA, UNSPECIFIED Comment: Continue atorvastatin. (10) DVT prophylaxis SNOMED Code(s): 686614994 Comment: Warfarin (11) Full code status Code(s): Z78.9 - OTHER SPECIFIED HEALTH STATUS Status and Disposition: Inpatient with expected LOS > 2 days. Anticipate discharge to home when medically stable.
[2017-04-13] MEDS: Sulfamethox/Trimethoprim DS 800/160* TAB PO SCH (08:39)
[2017-04-13] MEDS: Montelukast Sodium TAB* 10 MG PO SCH (08:39)
[2017-04-13] MEDS: amLODIPine TAB* 5 MG PO SCH (08:39)
[2017-04-13] MEDS: Cholecalciferol TAB* 1000 UNITS PO SCH (08:39)
[2017-04-13] MEDS: Omeprazole CAP* 20 MG PO SCH ×2 (08:39→20:58)
[2017-04-13] MEDS: traMADol TAB* 50 MG PO SCH ×3 (08:39→20:57)
[2017-04-13] MEDS: Furosemide TAB* 20 MG PO SCH ×2 (08:39→20:57)
[2017-04-13] MEDS: Aspirin EC Low Dose* 81 MG TAB.EC PO SCH (08:39)
[2017-04-13] MEDS: VORICONAZOLE 50 MG PO SCH ×2 (08:40→20:58)
[2017-04-13 08:47] LABS: BUN/Creatinine Ratio 30.5 (8-20); Calcium 8.7 mg/dL (8.6-10.3); EGFR African American 174.7 (>60); EGFR Non-African American 135.8 (>60); Potassium 4.8 mmol/L (3.5-5.0)
[2017-04-13] MEDS ORDERED: Furosemide IV* 10 MG/ML 2 ML VIAL (20 MG) IV SLOW PU ONE (10:30)
[2017-04-13] MEDS: guaiFENesin LIQ* 100 MG/5 ML UDC PO PRN ×2 (11:36→20:58)
--- NOTE | 2017-04-13 12:15 | PN ---
Progress Note - Progress Note Date of Service: 04/13/17 SOAP: Subjective: CC: pneumonia HPI: 71 year old man with severe COPD now with cough and hypoxia. Was improving but worsening dyspnea and hypoxemia yesterday, on high flow O2, more comfortable now. Cough continues, non productive. No fever, rash, or diarrhea. Objective: [] Vital Signs Temp 36.8 C 04/13/17 07:49 Pulse 89 04/13/17 11:00 Resp 19 04/13/17 11:52 BP 120/64 04/13/17 11:00 Pulse Ox 89 04/13/17 11:00 Intake & Output 04/12/17 04/13/17 04/13/17 18:59 06:59 18:59 Intake Total 1190 480 200 Output Total 650 850 250 Balance 540 -370 -50 Weight 154 lb 15.759 oz Intake: Oral 1190 480 200 Output: Urine 650 850 250 Gen:awake, no distress HEENT:PERRL MMM Neck:Supple Heart:RRR no murmur Lungs: decr BS BL, expir rhonchi throughout Abd:+BS NTND soft Skin: No rash Laboratory Results - last 24 hr 04/13/17 04/13/17 08:15 08:15 INR (Anticoag Therapy) 3.43 H Sodium 130 L Potassium 4.8 Chloride 89 L Carbon Dioxide 35 H Anion Gap 6 BUN 18 Creatinine 0.59 L Est GFR ( Amer) 174.7 Est GFR (Non-Af Amer) 135.8 BUN/Creatinine Ratio 30.5 H Glucose 73 Calcium 8.7 Assessment: 1. Staph aureus pneumonia (MSSA). 2. acute on chronic hypoxemic respiratory failure, worsening 3. severe COPD 4. pulmonary embolus 5. Invasive pulmonary aspergillosis; improving on imaging Plan: 1. change bactrim to ancef 1 gm IV Q8hrs. Diuresis already planned. Recheck CT chest if not improving 2. 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 anticoagulation Discussed with Juliet Mooney NP
[2017-04-13] MEDS: ceFAZolin 1 GM VIAL(*) 1 GM in NS 0.9% 50 ML* 50 ML IVPB SCH ×2 (12:37→20:57)
[2017-04-13] MEDS: Magnesium Hydroxide LIQ* 30 ML UDC PO PRN (17:20)
[2017-04-13] MEDS ORDERED: Calcium Carbonate CHEW TAB* 500 MG (TUMS) PO PRN (17:25)
[2017-04-13] MEDS: Atorvastatin* 20 MG TAB PO SCH (17:41)
[2017-04-14] MEDS: Albuterol/Ipratropium NEB.SOL* Albuterol 2.5 MG/Ipratropium 0.5 MG 3 ML INH SCH ×6 (00:58→19:38)
[2017-04-14] MEDS: Benzonatate CAP* 100 MG PO SCH ×3 (01:03→17:07)
[2017-04-14] MEDS: Codeine TAB* 15 MG PO PRN ×2 (03:33→09:00)
[2017-04-14] MEDS: ceFAZolin 1 GM VIAL(*) 1 GM in NS 0.9% 50 ML* 50 ML IVPB SCH ×3 (04:38→20:56)
[2017-04-14 05:31] LABS: Add Diff/Slide Review? Slide Review Added; Comments Flag Yes; Hematocrit 30 % (42-52); Hemoglobin 9.6 g/dl (14.0-18.0); Mean Corpuscular HGB Conc 33 g/dl (31-36); Mean Corpuscular Hemoglobin 29 pg (27-31); Mean Corpuscular Volume 87 fL (80-94); Mean Platelet Volume 7 um3 (7.4-10.4); Red Blood Count 3.38 10^6/ul (4.0-5.4); Red Cell Distribution Width 18 % (10.5-15); White Blood Count 12.5 10^3/ul (3.5-10.8)
[2017-04-14 05:40] LABS: BUN/Creatinine Ratio 25.8 (8-20); C Reactive Protein 110.34 mg/L (< 5.00); Calcium 8.7 mg/dL (8.6-10.3); EGFR African American 164.9 (>60); EGFR Non-African American 128.3 (>60); Potassium 4.8 mmol/L (3.5-5.0)
[2017-04-14] MEDS ORDERED: Morphine INJ* 2 MG/ML 1 ML SYRINGE ONE (05:45)
[2017-04-14] MEDS ORDERED: Morphine INJ* 2 MG/ML 1 ML SYRINGE IV ONE (06:00)
--- NOTE | 2017-04-14 07:48 | PN ---
Subjective Date of Service: 04/14/17 Interval History: Patient seen and examined at bedside. He reports feeling less tired than yesterday and slept better overnight. He reports having "a breathing spell" this morning, requiring him to go up on his Vapotherm settings. Denies fever/chills, CP. Still with dyspnea, non-productive cough. Feels swelling has improved since yesterday, following IV furosemide. Telemetry: Sinus rhythm 70s Family History: Unchanged from Admission Social History: Unchanged from Admission Past Medical History: Unchanged from Admission Objective Active Medications: Albuterol/Ipratropium (Duoneb (Albuterol 2.5 Mg/Ipratropium 0.5 Mg)) 1 neb INH [id number] [facility]WAKE [facility] Last Admin: 04/14/17 02:04 Dose: 1 neb Albuterol/Ipratropium (Duoneb (Albuterol 2.5 Mg/Ipratropium 0.5 Mg)) 1 neb INH Q4H PRN PRN Reason: SOB/WHEEZING Amlodipine Besylate (Norvasc Tab*) 10 mg PO DAILY [facility] Last Admin: 04/13/17 08:39 Dose: 10 mg Aspirin (Aspirin Ec Low Dose*) 81 mg PO DAILY [facility] Last Admin: 04/13/17 08:39 Dose: 81 mg Atorvastatin Calcium (Lipitor*) 20 mg PO QPM [facility] Last Admin: 04/13/17 17:41 Dose: 20 mg Benzonatate (Tessalon Cap*) 200 mg PO Q8H [facility] Last Admin: 04/14/17 01:03 Dose: 200 mg Calcium Carbonate (Tums*) 500 mg PO TID PRN PRN Reason: DYSPEPSIA Cholecalciferol (Vitamin D Tab*) 1,000 units PO DAILY [facility] Last Admin: 04/13/17 08:39 Dose: 1,000 units Codeine Sulfate (Codeine Tab*) 15 mg PO Q4H PRN PRN Reason: COUGH Last Admin: 04/14/17 03:33 Dose: 15 mg Cyclobenzaprine HCl (Flexeril Tab*) 10 mg PO TID PRN PRN Reason: PAIN Last Admin: 04/11/17 08:05 Dose: 10 mg Docusate Sodium (Colace Cap*) 100 mg PO BID PRN PRN Reason: CONSTIPATION Last Admin: 04/12/17 11:49 Dose: 100 mg Furosemide (Lasix Tab*) 20 mg PO BID [facility] Last Admin: 04/13/17 20:57 Dose: 20 mg Guaifenesin (Robitussin*) 10 ml PO Q4H PRN PRN Reason: COUGH Last Admin: 04/13/17 20:58 Dose: 10 ml Cefazolin Sodium 1 gm/ Sodium (Chloride) 50 mls @ 200 mls/hr IVPB Q8H [facility] Last Admin: 04/14/17 04:38 Dose: 200 mls/hr Magnesium Hydroxide (Milk Of Magnesia Liq*) 30 ml PO Q6H PRN PRN Reason: CONSTIPATION Last Admin: 04/13/17 17:20 Dose: 30 ml Mometasone Furoate/Formoterol Fumar (Dulera 200/5 Mdi*) 2 puff INH BID [facility] PRN Reason: Protocol Last Admin: 04/13/17 19:42 Dose: 2 puff Montelukast Sodium (Singulair Tab*) 10 mg PO DAILY [facility] Last Admin: 04/13/17 08:39 Dose: 10 mg Omeprazole (Prilosec Cap*) 20 mg PO BID [facility] Last Admin: 04/13/17 20:58 Dose: 20 mg Oxycodone/Acetaminophen (Percocet 5/325 Tab*) 1 tab PO Q4H PRN PRN Reason: Pain Last Admin: 04/13/17 16:17 Dose: 1 tab Pharmacy Profile Note (Coumadin Daily Reminder*) 0 note FOLLOW UP 1700 [facility] Last Admin: 04/13/17 16:48 Dose: Not Given Polyethylene Glycol/Electrolytes (Miralax*) 17 gm PO DAILY PRN PRN Reason: CONSTIPATION Senna (Senokot Tab*) 1 tab PO BEDTIME PRN PRN Reason: CONSTIPATION Sodium Chloride (Sodium Chloride 0.65% Nasal Drops*) 1 drop BOTH NARES Q4H PRN PRN Reason: nasal congestion Tiotropium [place] (Spiriva Cap.Inh*) 1 cap INH DAILY [facility] Last Admin: 04/13/17 07:42 Dose: 1 cap Tramadol HCl (Ultram*) 50 mg PO TID [facility] Last Admin: 04/13/17 20:57 Dose: 50 mg Voriconazole (Vfend (Nf)) 200 mg PO BID [facility] PRN Reason: Protocol Last Admin: 04/13/17 20:58 Dose: 200 mg Vital Signs 04/13/17 04/13/17 04/13/17 07:48 07:49 08:00 Temperature 98.2 F Pulse Rate 84 85 Respiratory 15 16 Rate Blood Pressure 126/50 (mmHg) O2 Sat by Pulse 94 86 Oximetry 04/13/17 04/13/17 04/13/17 09:00 09:42 10:00 Temperature Pulse Rate 85 77 83 Respiratory 20 16 16 Rate Blood Pressure 111/61 116/55 127/63 (mmHg) O2 Sat by Pulse 89 93 90 Oximetry 04/13/17 04/13/17 04/13/17 11:00 11:52 12:00 Temperature 98.0 F Pulse Rate 89 83 Respiratory 23 19 18 Rate Blood Pressure 120/64 112/57 (mmHg) O2 Sat by Pulse 89 90 Oximetry 04/13/17 04/13/17 04/13/17 13:00 13:10 14:00 Temperature Pulse Rate 83 82 73 Respiratory 15 17 17 Rate Blood Pressure 107/66 109/57 (mmHg) O2 Sat by Pulse 94 89 96 Oximetry 04/13/17 04/13/17 04/13/17 15:00 16:00 16:17 Temperature 98.6 F Pulse Rate 76 73 Respiratory 17 14 17 Rate Blood Pressure 118/72 109/71 (mmHg) O2 Sat by Pulse 94 95 Oximetry 04/13/17 04/13/17 04/13/17 17:00 17:45 18:00 Temperature Pulse Rate 79 78 Respiratory 18 16 17 Rate Blood Pressure 130/62 109/49 (mmHg) O2 Sat by Pulse 93 91 Oximetry 04/13/17 04/13/17 04/13/17 19:00 19:42 19:48 Temperature 99.6 F Pulse Rate 69 82 Respiratory 14 16 Rate Blood Pressure 123/69 (mmHg) O2 Sat by Pulse 97 94 Oximetry 04/13/17 04/13/17 04/13/17 20:00 21:00 21:01 Temperature Pulse Rate 77 93 92 Respiratory 13 23 18 Rate Blood Pressure 122/55 149/66 (mmHg) O2 Sat by Pulse 91 83 82 Oximetry 04/13/17 04/13/17 04/13/17 22:00 23:00 23:07 Temperature Pulse Rate 77 71 76 Respiratory 14 15 14 Rate Blood Pressure 123/59 123/60 (mmHg) O2 Sat by Pulse 99 98 97 Oximetry 04/13/17 04/13/17 04/14/17 23:26 23:50 00:00 Temperature 99.3 F Pulse Rate 69 Respiratory 17 13 Rate Blood Pressure (mmHg) O2 Sat by Pulse 96 Oximetry 04/14/17 04/14/17 04/14/17 00:01 01:00 02:00 Temperature Pulse Rate 69 73 76 Respiratory 13 18 15 Rate Blood Pressure 128/65 133/59 128/58 (mmHg) O2 Sat by Pulse 96 97 92 Oximetry 04/14/17 04/14/17 04/14/17 02:04 03:00 03:55 Temperature 98.8 F Pulse Rate 79 69 Respiratory 16 13 Rate Blood Pressure 119/58 (mmHg) O2 Sat by Pulse 93 99 Oximetry 04/14/17 04/14/17 04/14/17 04:00 05:00 05:48 Temperature Pulse Rate 69 Respiratory 12 14 37 Rate Blood Pressure 128/62 117/57 (mmHg) O2 Sat by Pulse 97 Oximetry 04/14/17 04/14/17 04/14/17 06:00 06:59 07:00 Temperature Pulse Rate 82 77 Respiratory 22 20 15 Rate Blood Pressure 132/59 116/76 (mmHg) O2 Sat by Pulse 90 95 Oximetry 04/14/17 07:29 Temperature 98.4 F Pulse Rate Respiratory Rate Blood Pressure (mmHg) O2 Sat by Pulse Oximetry Oxygen Devices in Use Now: High Flow Nasal Cannula Appearance: Older male, OOB to chair, mildly tachypneic but otherwise in no apparent distress Eyes: No Scleral Icterus Ears/Nose/Mouth/Throat: Clear Oropharnyx, Mucous Membranes Moist Neck: NL Appearance and Movements; NL JVP Respiratory: Symmetrical Chest Expansion and Respiratory Effort, - - Decreased, fair aeration throughout, exp rhonchi heard throughout all lung jules Cardiovascular: NL Sounds; No Murmurs; No JVD, RRR Abdominal: NL Sounds; No Tenderness; No Distention Extremities: - - +1 pitting edema to BLE Skin: - - Ecchymosis to BUE Neurological: Alert and Oriented x 3, NL Muscle Strength and Tone Lines/Tubes/Other Access: Clean, Dry and Intact Peripheral IV Nutrition: Taking PO's Result Diagrams: 04/14/17 05:16 04/14/17 05:16 Additional Lab and Data: Microbiology and Other Data: Microbiology 04/07/17 15:34 Gram Stain - Final Sputum Expectorated Sputum Culture - Preliminary Staphylococcus Aureus Assess/Plan/Problems-Billing Mr Celis is a 71 yo M with a h/o chronic hypoxic respiratory failure secondary to COPD on O2, 3.5L continuously, invasive pulmonary aspergillosis, recent dx for PE and CAD who presented to the ER with c/o progressive SOB, gurgling respirations and hypoxia. - Patient Problems (1) Acute and chronic respiratory failure with hypoxia Code(s): J96.21 - ACUTE AND CHRONIC RESPIRATORY FAILURE WITH HYPOXIA Comment: Does not appear to be improving, difficult to wean from Vapotherm Secondary to pneumonia, invasive aspergillosis, and PE in the setting of COPD Will check CT of chest, discuss with pulmonology Continue attempts to wean from Vapotherm and wean down O2 as able. At baseline, patient wears 2L O2 at home. Appreciate pulmonology and ID consults. (2) SOB (shortness of breath) Code(s): R06.02 - SHORTNESS OF BREATH Comment: Improved SOB but remains hypoxic, now on vapotherm. Appreciate consultations from Dr. Means and Dr. Israel. Likely multifactorial secondary to baseline COPD, invasive pulmonary aspergillosis, newly diagnosed PE, and now pna. Per ID, Bactrim switched to Ancef, based on susceptibilities for staph and stenotrophomas. Continue voriconazole for aspergillus. (3) Pneumonia Code(s): J18.9 - PNEUMONIA, UNSPECIFIED ORGANISM Comment: Sputum has now grown S. aureus and stenotrophomonas multophilia. Continue ceftriaxone, per Dr. Means's recommendations. (4) Pulmonary embolism Code(s): I26.99 - OTHER PULMONARY EMBOLISM WITHOUT ACUTE COR PULMONALE Comment : INR supratherapeutic, likely secondary to interactions with voriconazole. Hold warfarin, resume when INR trends down. (5) Aspergillosis Code(s): B44.9 - ASPERGILLOSIS, UNSPECIFIED Comment: Continue voriconazole. Follow up with Dr. Means as outpatient. (6) Atrial fibrillation Code(s): I48.91 - UNSPECIFIED ATRIAL FIBRILLATION Comment: Hx of paroxysmal afib Currently in sinus rhythm Continue to monitor Anticoagulated with warfarin (7) COPD (chronic obstructive pulmonary disease) Code(s): J44.9 - CHRONIC OBSTRUCTIVE PULMONARY DISEASE, UNSPECIFIED Comment: No signs of exacerbation. Continue home inhaler regimen. (8) HTN (hypertension) Code(s): I10 - ESSENTIAL (PRIMARY) HYPERTENSION Comment: Normotensive Continue amlodipine and furosemide. (9) HLD (hyperlipidemia) Code(s): E78.5 - HYPERLIPIDEMIA, UNSPECIFIED Comment: Continue atorvastatin. (10) DVT prophylaxis SNOMED Code(s): 285693694 Comment: INR 4.43, hold warfarin as patient is supratherapeutic Recheck INR tomorrow (11) Full code status Code(s): Z78.9 - OTHER SPECIFIED HEALTH STATUS Status and Disposition: Inpatient with expected LOS > 2 days. Anticipate discharge to home when medically stable.
[2017-04-14] MEDS: Tiotropium CAP.INH* CAP.INH/18 MCG INH SCH (08:14)
[2017-04-14] MEDS: Mometasone/Formoter 200/5 MDI INH SCH ×2 (08:14→19:38)
[2017-04-14] MEDS: oxyCODONE/Acetamin 5/325 MG* TAB PO PRN ×2 (08:25→13:12)
[2017-04-14] MEDS: VORICONAZOLE 50 MG PO SCH ×2 (09:00→21:49)
[2017-04-14] MEDS: Omeprazole CAP* 20 MG PO SCH ×2 (09:00→20:56)
[2017-04-14] MEDS: Furosemide TAB* 20 MG PO SCH ×2 (09:00→20:56)
[2017-04-14] MEDS: traMADol TAB* 50 MG PO SCH ×3 (09:00→19:59)
[2017-04-14] MEDS: Aspirin EC Low Dose* 81 MG TAB.EC PO SCH (09:00)
[2017-04-14] MEDS: Montelukast Sodium TAB* 10 MG PO SCH (09:00)
[2017-04-14] MEDS: amLODIPine TAB* 5 MG PO SCH (09:00)
[2017-04-14] MEDS: Cholecalciferol TAB* 1000 UNITS PO SCH (09:00)
[2017-04-14] MEDS: guaiFENesin LIQ* 100 MG/5 ML UDC PO PRN ×2 (10:26→20:56)
[2017-04-14] MEDS: Senna TAB PO PRN (10:27)
[2017-04-14] MEDS: Docusate CAP* 100 MG PO PRN (10:27)
--- NOTE | 2017-04-14 12:25 | RAD ---
INDICATION: Worsening hypoxia. Acute and chronic respiratory failure. COMPARISON: Chest x-ray 2016; CTA chest March 31, 2017 TECHNIQUE: Axial source images were obtained from the thoracic inlet to the hemidiaphragms. Coronal and sagittal reconstructed images were acquired. The visualized neck to include the thyroid appear normal. Chest wall: There are no acute abnormalities of the bony thorax or chest wall. There are stable compression deformities as described previously. There is no supraclavicular, infraclavicular, or axillary lymphadenopathy. Lungs : There are moderate bibasilar consolidative changes with air bronchograms. There is additional interstitial infiltrative change in the left lower lobe. There is lingular airspace disease. The lingular changes are stable. The bibasilar abnormalities are new. There are emphysematous changes. There are no endobronchial lesions. Cardiomediastinal structures: The heart is normal in size. There is no pericardial effusion. There is no evidence of aortic aneurysm or dissection. The pulmonary vessels appear normal. There is no mediastinal or hilar adenopathy. The esophagus appears normal. Pleura : There are no pleural-based masses or effusions. Other: There are no acute or significant CT findings of the visualized upper abdomen. IMPRESSION: NEW BIBASILAR CONSOLIDATIVE CHANGES. EMPHYSEMATOUS CHANGES.
[2017-04-14] MEDS ORDERED: Warfarin TAB(*) 4 MG PO SCH (17:00)
[2017-04-14] MEDS: Atorvastatin* 20 MG TAB PO SCH (18:16)
--- NOTE | 2017-04-14 18:26 | PN ---
Progress Note - Progress Note Date of Service: 04/14/17 - Pulm consult f/u note Note: Pt seen and examined at bedside in ICU today. Interim events noted. Pt reports improvement in breathing. he is off high flow O2. He able to expectorate brown phleghm. Participated in PT. Active Medications Generic Name Dose Route Start Last Admin Trade Name Freq PRN Reason Stop Dose Admin Albuterol/Ipratropium 1 neb 04/10/17 19:00 04/14/17 14:56 Duoneb (Albuterol 2.5 Mg/Ipratropium 0.5 Mg) INH 1 neb [id number] AWAKE SHAUNA Administration Albuterol/Ipratropium 1 neb 04/13/17 03:33 Duoneb (Albuterol 2.5 Mg/Ipratropium 0.5 Mg) INH Q4H PRN SOB/WHEEZING Amlodipine Besylate 10 mg 04/07/17 09:00 04/14/17 09:00 Norvasc Tab* PO 10 mg DAILY SHAUNA Administration Aspirin 81 mg 04/07/17 09:00 04/14/17 09:00 Aspirin Ec Low Dose* PO 81 mg DAILY SHAUNA Administration Atorvastatin Calcium 20 mg 04/07/17 18:00 04/14/17 18:16 Lipitor* PO 20 mg QPM SHAUNA Administration Benzonatate 200 mg 04/12/17 01:00 04/14/17 17:07 Tessalon Cap* PO 200 mg Q8H SHAUNA Administration Calcium Carbonate 500 mg 04/13/17 17:25 Tums* PO TID PRN DYSPEPSIA Cholecalciferol 1,000 units 04/07/17 09:00 04/14/17 09:00 Vitamin D Tab* PO 1,000 units DAILY SHAUNA Administration Codeine Sulfate 15 mg 04/12/17 00:54 04/14/17 09:00 Codeine Tab* PO 15 mg Q4H PRN Administration COUGH Cyclobenzaprine HCl 10 mg 04/07/17 08:59 04/11/17 08:05 Flexeril Tab* PO 10 mg TID PRN Administration PAIN Docusate Sodium 100 mg 04/09/17 15:35 04/14/17 10:27 Colace Cap* PO 100 mg BID PRN Administration CONSTIPATION Furosemide 20 mg 04/09/17 09:00 04/14/17 09:00 Lasix Tab* PO 20 mg BID SHAUNA Administration Guaifenesin 10 ml 04/10/17 12:32 04/14/17 10:26 Robitussin* PO 10 ml Q4H PRN Administration COUGH Cefazolin Sodium 1 gm/ Sodium 50 mls @ 200 mls/hr 04/13/17 13:00 04/14/17 12: 58 Chloride IVPB 200 mls/hr Q8H SHAUNA Administration Magnesium Hydroxide 30 ml 04/09/17 15:35 04/13/17 17:20 Milk Of Magnesia Liq* PO 30 ml Q6H PRN Administration CONSTIPATION Mometasone Furoate/Formoterol Fumar 2 puff 04/07/17 09:00 04/14/17 08:14 Dulera 200/5 Mdi* INH 2 puff BID SHAUNA Administration Protocol Montelukast Sodium 10 mg 04/07/17 09:00 04/14/17 09:00 Singulair Tab* PO 10 mg DAILY SHAUNA Administration Omeprazole 20 mg 04/07/17 09:00 04/14/17 09:00 Prilosec Cap* PO 20 mg BID SHAUNA Administration Oxycodone/Acetaminophen 1 tab 04/07/17 08:59 04/14/17 13:12 Percocet 5/325 Tab* PO 1 tab Q4H PRN Administration Pain Pharmacy Profile Note 0 note 04/07/17 17:00 04/14/17 17:48 Coumadin Daily Reminder* FOLLOW UP Not Given 1700 SHAUNA Polyethylene Glycol/Electrolytes 17 gm 04/09/17 15:35 Miralax* PO DAILY PRN CONSTIPATION Senna 1 tab 04/09/17 15:35 04/14/17 10:27 Senokot Tab* PO 1 tab BEDTIME PRN Administration CONSTIPATION Sodium Chloride 1 drop 04/11/17 11:33 Sodium Chloride 0.65% Nasal Drops* BOTH NARES Q4H PRN nasal congestion Tiotropium [place] 1 cap 04/07/17 09:00 04/14/17 08:14 Spiriva Cap.Inh* INH 1 cap DAILY SHAUNA Administration Tramadol HCl 50 mg 04/11/17 14:00 04/14/17 14:23 Ultram* PO Not Given TID SHAUNA Voriconazole 200 mg 04/07/17 21:00 04/14/17 09:00 Vfend (Nf) PO 200 mg BID SHAUNA Administration Protocol Vital Signs Temp Pulse Resp BP Pulse Ox 98.3 F 78 19 93/78 91 04/14/17 15:34 04/14/17 18:01 04/14/17 18:01 04/14/17 18:01 04/14/17 18:01 Gen: Pt sitting in chair in NAD HEENT: PERRLA, No accessory muscle usage Lungs: Diminished a/e, No wheeze CVS; S1, S2+, no new murmers Abd: Soft, BS+ Skin: Multiple bruises present Neuro: No focal defecits Ext: Normal ROM, no fractures, no cyanosis Laboratory Results - last 24 hr 04/14/17 04/14/17 04/14/17 05:16 05:16 05:16 WBC 12.5 H RBC 3.38 L Hgb 9.6 L Hct 30 L MCV 87 MCH 29 MCHC 33 RDW 18 H Plt Count 575 H MPV 7 L Neut % (Auto) 82.0 Lymph % (Auto) 5.9 L [place] % (Auto) 10.6 H Eos % (Auto) 1.0 Baso % (Auto) 0.5 Absolute Neuts (auto) 10.2 H Absolute Lymphs (auto) 0.7 L Absolute Monos (auto) 1.3 H Absolute Eos (auto) 0.1 Absolute Basos (auto) 0.1 Absolute Nucleated RBC 0 Nucleated RBC % 0 INR (Anticoag Therapy) 4.43 H Sodium 127 L Potassium 4.8 Chloride 88 L Carbon Dioxide 35 H Anion Gap 4 BUN 16 Creatinine 0.62 L Est GFR ( Amer) 164.9 Est GFR (Non-Af Amer) 128.3 BUN/Creatinine Ratio 25.8 H Glucose 82 Calcium 8.7 C-Reactive Protein 110.34 H CXR: Patchy air space opacities at bases b/l with interval worsening- atlectasis or PNA ECHO: Interval worsening of RV function with increased wall thickness and pressure overload, diastolic dysfunction and normal EF CT chest was personally reviewed by me and with pt today- dense consolidations b /l, signifciant emphysema, resolution of previously noted cavitary opacity I/R: 71 y o m with severe emphysema, Apergillus PNA, hypoxia, anemia, GI bleed with worsening SOB, hypoxia, clinical picture consistent with cor pulmonale secondary to chronic hypoxia and rt heart strain with worsening hypoxia requiring high flow O2, likely secondary to Staph PNA. Pt with low reserve to begin with with acute worsening secondary to PNA and recent PE Pt likely with Staph PNA CT chest shows dense consolidations b/l that were not present on earlier CTA chest Abx as per ID Pt reponded well to Voriconazole for fungal PNA with resolution of cavitary lesion C/w O2 supplemetation, titrate as tolerated to maintain 90-92% He doesnot qualify per current medicare criteria for Trilogy inspite of severe COPD and recurrent hospitalizations as he doesnot have signficant hypercapnia C/w diuretics c/w bronchodilators and nebs Pt with significant deterioration recently due to PNA, PE, severe emphysema Will monitor progress over next few days, will discuss advance directives D/w Juliet Mooney
[2017-04-15] MEDS: Albuterol/Ipratropium NEB.SOL* Albuterol 2.5 MG/Ipratropium 0.5 MG 3 ML INH SCH ×5 (01:08→20:38)
[2017-04-15] MEDS: Benzonatate CAP* 100 MG PO SCH ×3 (01:30→17:18)
[2017-04-15] MEDS: guaiFENesin LIQ* 100 MG/5 ML UDC PO PRN (01:31)
[2017-04-15] MEDS: ceFAZolin 1 GM VIAL(*) 1 GM in NS 0.9% 50 ML* 50 ML IVPB SCH ×3 (04:00→19:54)
[2017-04-15] MEDS: Codeine TAB* 15 MG PO PRN (04:12)
[2017-04-15 06:13] LABS: BUN/Creatinine Ratio 26.5 (8-20); Calcium 8.5 mg/dL (8.6-10.3); EGFR African American 216.4 (>60); EGFR Non-African American 168.3 (>60); Potassium 4.9 mmol/L (3.5-5.0)
[2017-04-15] MEDS: Mometasone/Formoter 200/5 MDI INH SCH ×2 (07:19→20:42)
[2017-04-15] MEDS: Tiotropium CAP.INH* CAP.INH/18 MCG INH SCH (07:19)
--- NOTE | 2017-04-15 07:36 | PN ---
Subjective Date of Service: 04/15/17 Interval History: Mr. Celis reports that he felt mostly well overnight but woke up early this AM with a WATT and feeling SOB. Currently still on [place], now at 12L. Denies CP but reports productive cough, though some phlegm feels stuck in his throat and chest. He cannot cough it up. Denies fever/chills. Feels LE edema is improved. No other acute concerns. Family History: Unchanged from Admission Social History: Unchanged from Admission Past Medical History: Unchanged from Admission Objective Active Medications: Albuterol/Ipratropium (Duoneb (Albuterol 2.5 Mg/Ipratropium 0.5 Mg)) 1 neb INH [id number] AWAKE [facility] Last Admin: 04/15/17 07:19 Dose: 1 neb Albuterol/Ipratropium (Duoneb (Albuterol 2.5 Mg/Ipratropium 0.5 Mg)) 1 neb INH Q4H PRN PRN Reason: SOB/WHEEZING Amlodipine Besylate (Norvasc Tab*) 10 mg PO DAILY [facility] Last Admin: 04/14/17 09:00 Dose: 10 mg Aspirin (Aspirin Ec Low Dose*) 81 mg PO DAILY [facility] Last Admin: 04/14/17 09:00 Dose: 81 mg Atorvastatin Calcium (Lipitor*) 20 mg PO QPM [facility] Last Admin: 04/14/17 18:16 Dose: 20 mg Benzonatate (Tessalon Cap*) 200 mg PO Q8H [facility] Last Admin: 04/15/17 01:30 Dose: Not Given Calcium Carbonate (Tums*) 500 mg PO TID PRN PRN Reason: DYSPEPSIA Cholecalciferol (Vitamin D Tab*) 1,000 units PO DAILY [facility] Last Admin: 04/14/17 09:00 Dose: 1,000 units Codeine Sulfate (Codeine Tab*) 15 mg PO Q4H PRN PRN Reason: COUGH Last Admin: 04/15/17 04:12 Dose: 15 mg Cyclobenzaprine HCl (Flexeril Tab*) 10 mg PO TID PRN PRN Reason: PAIN Last Admin: 04/11/17 08:05 Dose: 10 mg Docusate Sodium (Colace Cap*) 100 mg PO BID PRN PRN Reason: CONSTIPATION Last Admin: 04/14/17 10:27 Dose: 100 mg Furosemide (Lasix Tab*) 20 mg PO BID [facility] Last Admin: 04/14/17 20:56 Dose: 20 mg Guaifenesin (Robitussin*) 10 ml PO Q4H PRN PRN Reason: COUGH Last Admin: 04/15/17 01:31 Dose: 10 ml Cefazolin Sodium 1 gm/ Sodium (Chloride) 50 mls @ 200 mls/hr IVPB Q8H [facility] Last Admin: 04/15/17 04:00 Dose: 200 mls/hr Magnesium Hydroxide (Milk Of Magnesia Liq*) 30 ml PO Q6H PRN PRN Reason: CONSTIPATION Last Admin: 04/13/17 17:20 Dose: 30 ml Mometasone Furoate/Formoterol Fumar (Dulera 200/5 Mdi*) 2 puff INH BID [facility] PRN Reason: Protocol Last Admin: 04/15/17 07:19 Dose: 2 puff Montelukast Sodium (Singulair Tab*) 10 mg PO DAILY [facility] Last Admin: 04/14/17 09:00 Dose: 10 mg Omeprazole (Prilosec Cap*) 20 mg PO BID [facility] Last Admin: 04/14/17 20:56 Dose: 20 mg Oxycodone/Acetaminophen (Percocet 5/325 Tab*) 1 tab PO Q4H PRN PRN Reason: Pain Last Admin: 04/14/17 13:12 Dose: 1 tab Pharmacy Profile Note (Coumadin Daily Reminder*) 0 note FOLLOW UP 1700 [facility] Last Admin: 04/14/17 17:48 Dose: Not Given Polyethylene Glycol/Electrolytes (Miralax*) 17 gm PO DAILY PRN PRN Reason: CONSTIPATION Senna (Senokot Tab*) 1 tab PO BEDTIME PRN PRN Reason: CONSTIPATION Last Admin: 04/14/17 10:27 Dose: 1 tab Sodium Chloride (Sodium Chloride 0.65% Nasal Drops*) 1 drop BOTH NARES Q4H PRN PRN Reason: nasal congestion Tiotropium [place] (Spiriva Cap.Inh*) 1 cap INH DAILY [facility] Last Admin: 04/15/17 07:19 Dose: 1 cap Tramadol HCl (Ultram*) 50 mg PO TID [facility] Last Admin: 04/14/17 19:59 Dose: Not Given Voriconazole (Vfend (Nf)) 200 mg PO BID [facility] PRN Reason: Protocol Last Admin: 04/14/17 21:49 Dose: 200 mg Vital Signs 04/14/17 04/14/17 04/14/17 08:00 08:01 08:03 Temperature Pulse Rate 82 83 81 Respiratory 18 17 17 Rate Blood Pressure 127/63 (mmHg) O2 Sat by Pulse 93 91 88 Oximetry 04/14/17 04/14/17 04/14/17 08:16 08:25 09:00 Temperature Pulse Rate 75 86 Respiratory 12 19 17 Rate Blood Pressure 123/62 (mmHg) O2 Sat by Pulse 92 90 Oximetry 04/14/17 04/14/17 04/14/17 10:00 11:00 11:13 Temperature Pulse Rate 78 Respiratory 17 17 16 Rate Blood Pressure 119/56 (mmHg) O2 Sat by Pulse 92 Oximetry 04/14/17 04/14/17 04/14/17 11:21 12:00 12:54 Temperature 98.0 F Pulse Rate 70 81 Respiratory 14 16 Rate Blood Pressure 116/68 (mmHg) O2 Sat by Pulse 96 87 Oximetry 04/14/17 04/14/17 04/14/17 13:00 13:12 14:00 Temperature Pulse Rate 78 70 Respiratory 15 15 12 Rate Blood Pressure 142/61 125/77 (mmHg) O2 Sat by Pulse 88 98 Oximetry 04/14/17 04/14/17 04/14/17 15:00 15:18 15:34 Temperature 98.3 F Pulse Rate 77 78 Respiratory 19 26 Rate Blood Pressure (mmHg) O2 Sat by Pulse 94 95 Oximetry 04/14/17 04/14/17 04/14/17 15:42 16:00 17:00 Temperature Pulse Rate 81 82 78 Respiratory 21 19 17 Rate Blood Pressure 125/63 (mmHg) O2 Sat by Pulse 94 92 98 Oximetry 04/14/17 04/14/17 04/14/17 17:01 18:00 18:01 Temperature Pulse Rate 81 77 78 Respiratory 22 22 19 Rate Blood Pressure 115/61 93/78 (mmHg) O2 Sat by Pulse 94 93 91 Oximetry 04/14/17 04/14/17 04/14/17 19:00 19:01 19:02 Temperature Pulse Rate 81 82 75 Respiratory 20 16 19 Rate Blood Pressure 138/69 (mmHg) O2 Sat by Pulse 92 91 93 Oximetry 04/14/17 04/14/1717 19:39 20:00 20:59 Temperature 98.3 F Pulse Rate 76 79 81 Respiratory 16 20 18 Rate Blood Pressure 127/69 (mmHg) O2 Sat by Pulse 97 95 90 Oximetry 04/14/17 04/14/17 04/14/17 21:00 21:01 21:51 Temperature Pulse Rate 75 76 Respiratory 17 19 17 Rate Blood Pressure 138/67 (mmHg) O2 Sat by Pulse 93 95 Oximetry 04/14/17 04/14/17 04/14/17 22:00 22:23 23:00 Temperature Pulse Rate 73 73 74 Respiratory 16 18 17 Rate Blood Pressure 129/55 125/70 (mmHg) O2 Sat by Pulse 95 96 96 Oximetry 04/14/17 04/14/17 04/15/17 23:20 23:59 00:00 Temperature 97.0 F Pulse Rate 73 73 Respiratory 24 15 Rate Blood Pressure 120/76 (mmHg) O2 Sat by Pulse 96 94 Oximetry 04/15/17 04/15/17 04/15/17 00:01 01:00 01:01 Temperature Pulse Rate 74 74 73 Respiratory 15 14 15 Rate Blood Pressure 122/68 (mmHg) O2 Sat by Pulse 95 99 98 Oximetry 04/15/17 04/15/17 04/15/17 01:19 02:00 02:59 Temperature Pulse Rate 86 70 74 Respiratory 21 13 15 Rate Blood Pressure 108/88 (mmHg) O2 Sat by Pulse 96 97 95 Oximetry 04/15/17 04/15/17 04/15/17 03:00 03:01 03:19 Temperature 98.0 F Pulse Rate 73 74 Respiratory 18 16 Rate Blood Pressure 124/80 (mmHg) O2 Sat by Pulse 95 95 Oximetry 04/15/17 04/15/17 04/15/17 03:59 04:00 04:01 Temperature Pulse Rate 75 75 74 Respiratory 17 31 16 Rate Blood Pressure 139/72 (mmHg) O2 Sat by Pulse 95 95 94 Oximetry 04/15/17 04/15/17 04/15/17 05:00 06:00 06:59 Temperature Pulse Rate 82 79 78 Respiratory 17 13 15 Rate Blood Pressure 135/67 126/80 (mmHg) O2 Sat by Pulse 92 94 96 Oximetry 04/15/17 04/15/17 04/15/17 07:00 07:01 07:23 Temperature Pulse Rate 76 77 77 Respiratory 16 14 17 Rate Blood Pressure 121/68 (mmHg) O2 Sat by Pulse 95 96 92 Oximetry Oxygen Devices in Use Now: Nasal Cannula - [place] 12L Appearance: Older male patient, OOB to chair, mildly tachypneic Eyes: No Scleral Icterus Ears/Nose/Mouth/Throat: Mucous Membranes Moist Neck: NL Appearance and Movements; NL JVP Respiratory: Symmetrical Chest Expansion and Respiratory Effort, - - rhonchi heard throughout all lung jules Cardiovascular: NL Sounds; No Murmurs; No JVD, RRR Abdominal: NL Sounds; No Tenderness; No Distention Extremities: - - +1 pitting edema to BLE Neurological: Alert and Oriented x 3, NL Muscle Strength and Tone Lines/Tubes/Other Access: Clean, Dry and Intact Peripheral IV Nutrition: Taking PO's Result Diagrams: 04/14/17 05:16 04/15/17 05:20 Additional Lab and Data: Microbiology and Other Data: Microbiology 04/07/17 15:34 Gram Stain - Final Sputum Expectorated Sputum Culture - Preliminary Staphylococcus Aureus Assess/Plan/Problems-Billing Mr Celis is a 71 yo M with a h/o chronic hypoxic respiratory failure secondary to COPD on O2, 3.5L continuously, invasive pulmonary aspergillosis, recent dx for PE and CAD who presented to the ER with c/o progressive SOB, gurgling respirations and hypoxia. - Patient Problems (1) Acute and chronic respiratory failure with hypoxia Code(s): J96.21 - ACUTE AND CHRONIC RESPIRATORY FAILURE WITH HYPOXIA Comment: Does not appear to be improving, difficult to wean from Vapotherm Secondary to pneumonia, invasive aspergillosis, and PE in the setting of COPD Will check CT of chest, discuss with pulmonology Continue attempts to wean from Vapotherm and wean down O2 as able. At baseline, patient wears 2L O2 at home. Appreciate pulmonology and ID consults. (2) SOB (shortness of breath) Code(s): R06.02 - SHORTNESS OF BREATH Comment: Improving Appreciate consultations from Dr. Means and Dr. Israel. Likely multifactorial secondary to baseline COPD, invasive pulmonary aspergillosis, newly diagnosed PE, and now pna. Continue Ancef, based on susceptibilities for staph and stenotrophomas. Continue voriconazole for aspergillus. (3) Hyponatremia Code(s): E87.1 - HYPO-OSMOLALITY AND HYPONATREMIA Comment: Check urine sodium, osmolality Start fluid restriction Continue to follow. (4) Pneumonia Code(s): J18.9 - PNEUMONIA, UNSPECIFIED ORGANISM Comment: Sputum has now grown S. aureus and stenotrophomonas multophilia. Continue cefazolin, per Dr. Means's recommendations. (5) Pulmonary embolism Code(s): I26.99 - OTHER PULMONARY EMBOLISM WITHOUT ACUTE COR PULMONALE Comment : INR supratherapeutic, likely secondary to interactions with voriconazole. Hold warfarin, resume when INR trends down. (6) Aspergillosis Code(s): B44.9 - ASPERGILLOSIS, UNSPECIFIED Comment: Continue voriconazole. Follow up with Dr. Means as outpatient. (7) Atrial fibrillation Code(s): I48.91 - UNSPECIFIED ATRIAL FIBRILLATION Comment: Hx of paroxysmal afib Currently in sinus rhythm Continue to monitor Anticoagulated with warfarin (8) COPD (chronic obstructive pulmonary disease) Code(s): J44.9 - CHRONIC OBSTRUCTIVE PULMONARY DISEASE, UNSPECIFIED Comment: No signs of exacerbation. Continue home inhaler regimen. (9) HTN (hypertension) Code(s): I10 - ESSENTIAL (PRIMARY) HYPERTENSION Comment: Normotensive Continue amlodipine and furosemide. (10) HLD (hyperlipidemia) Code(s): E78.5 - HYPERLIPIDEMIA, UNSPECIFIED Comment: Continue atorvastatin. (11) DVT prophylaxis SNOMED Code(s): 150089039 Comment: INR 4.02, hold warfarin as patient is supratherapeutic Recheck INR tomorrow (12) Full code status Code(s): Z78.9 - OTHER SPECIFIED HEALTH STATUS Status and Disposition: Inpatient with expected LOS > 2 days. Anticipate discharge to home when medically stable.
[2017-04-15] MEDS: amLODIPine TAB* 5 MG PO SCH (08:22)
[2017-04-15] MEDS: Omeprazole CAP* 20 MG PO SCH ×2 (08:23→19:55)
[2017-04-15] MEDS: Cholecalciferol TAB* 1000 UNITS PO SCH (08:23)
[2017-04-15] MEDS: VORICONAZOLE 50 MG PO SCH ×2 (08:24→19:55)
[2017-04-15] MEDS: Montelukast Sodium TAB* 10 MG PO SCH (08:24)
[2017-04-15] MEDS: Furosemide TAB* 20 MG PO SCH ×2 (08:24→19:55)
[2017-04-15] MEDS: Aspirin EC Low Dose* 81 MG TAB.EC PO SCH (08:26)
[2017-04-15] MEDS: guaiFENesin ER TAB 600 MG PO SCH ×2 (08:26→19:55)
[2017-04-15] MEDS: traMADol TAB* 50 MG PO SCH ×3 (08:26→19:55)
[2017-04-15] MEDS: oxyCODONE/Acetamin 5/325 MG* TAB PO PRN ×2 (09:20→17:18)
--- NOTE | 2017-04-15 16:21 | PN ---
Progress Note - Progress Note Date of Service: 04/15/17 - Pulm f/u note Note: Pt seen and examined at bedside in ICU today. Pt reports that his breathing has worsened again today. he is off high flow O2, is on 12L O2. He c/o being unable to expectorate phleghm. Active Medications Generic Name Dose Route Start Last Admin Trade Name Freq PRN Reason Stop Dose Admin Albuterol/Ipratropium 1 neb 04/10/17 19:00 04/15/17 13:17 Duoneb (Albuterol 2.5 Mg/Ipratropium 0.5 Mg) INH 1 neb [id number] AWAKE SHAUNA Administration Albuterol/Ipratropium 1 neb 04/13/17 03:33 Duoneb (Albuterol 2.5 Mg/Ipratropium 0.5 Mg) INH Q4H PRN SOB/WHEEZING Amlodipine Besylate 10 mg 04/07/17 09:00 04/15/17 08:22 Norvasc Tab* PO 10 mg DAILY SHAUNA Administration Aspirin 81 mg 04/07/17 09:00 04/15/17 08:26 Aspirin Ec Low Dose* PO 81 mg DAILY SHAUNA Administration Atorvastatin Calcium 20 mg 04/07/17 18:00 04/14/17 18:16 Lipitor* PO 20 mg QPM SHAUNA Administration Benzonatate 200 mg 04/12/17 01:00 04/15/17 08:25 Tessalon Cap* PO 200 mg Q8H SHAUNA Administration Calcium Carbonate 500 mg 04/13/17 17:25 Tums* PO TID PRN DYSPEPSIA Cholecalciferol 1,000 units 04/07/17 09:00 04/15/17 08:23 Vitamin D Tab* PO 1,000 units DAILY SHAUNA Administration Codeine Sulfate 15 mg 04/12/17 00:54 04/15/17 04:12 Codeine Tab* PO 15 mg Q4H PRN Administration COUGH Cyclobenzaprine HCl 10 mg 04/07/17 08:59 04/11/17 08:05 Flexeril Tab* PO 10 mg TID PRN Administration PAIN Docusate Sodium 100 mg 04/09/17 15:35 04/14/17 10:27 Colace Cap* PO 100 mg BID PRN Administration CONSTIPATION Furosemide 20 mg 04/09/17 09:00 04/15/17 08:24 Lasix Tab* PO 20 mg BID SHAUNA Administration Guaifenesin 10 ml 04/10/17 12:32 04/15/17 01:31 Robitussin* PO 10 ml Q4H PRN Administration COUGH Guaifenesin 1,200 mg 04/15/17 09:00 04/15/17 08:26 Mucinex* PO 1,200 mg BID SHAUNA Administration Cefazolin Sodium 1 gm/ Sodium 50 mls @ 200 mls/hr 04/13/17 13:00 04/15/17 12: 26 Chloride IVPB 200 mls/hr Q8H SHAUNA Administration Magnesium Hydroxide 30 ml 04/09/17 15:35 04/13/17 17:20 Milk Of Magnesia Liq* PO 30 ml Q6H PRN Administration CONSTIPATION Mometasone Furoate/Formoterol Fumar 2 puff 04/07/17 09:00 04/15/17 07:19 Dulera 200/5 Mdi* INH 2 puff BID SHAUNA Administration Protocol Montelukast Sodium 10 mg 04/07/17 09:00 04/15/17 08:24 Singulair Tab* PO 10 mg DAILY SHAUNA Administration Omeprazole 20 mg 04/07/17 09:00 04/15/17 08:23 Prilosec Cap* PO 20 mg BID SHAUNA Administration Oxycodone/Acetaminophen 1 tab 04/07/17 08:59 04/15/17 09:20 Percocet 5/325 Tab* PO 1 tab Q4H PRN Administration Pain Pharmacy Profile Note 0 note 04/07/17 17:00 04/14/17 17:48 Coumadin Daily Reminder* FOLLOW UP Not Given 1700 SHAUNA Polyethylene Glycol/Electrolytes 17 gm 04/09/17 15:35 Miralax* PO DAILY PRN CONSTIPATION Senna 1 tab 04/09/17 15:35 04/14/17 10:27 Senokot Tab* PO 1 tab BEDTIME PRN Administration CONSTIPATION Sodium Chloride 1 drop 04/11/17 11:33 Sodium Chloride 0.65% Nasal Drops* BOTH NARES Q4H PRN nasal congestion Tiotropium [place] 1 cap 04/07/17 09:00 04/15/17 07:19 Spiriva Cap.Inh* INH 1 cap DAILY SHAUNA Administration Tramadol HCl 50 mg 04/11/17 14:00 04/15/17 14:49 Ultram* PO 50 mg TID SHAUNA Administration Voriconazole 200 mg 04/07/17 21:00 04/15/17 08:24 Vfend (Nf) PO 200 mg BID SHAUNA Administration Protocol Vital Signs Temp Pulse Resp BP Pulse Ox 98.5 F 81 18 139/85 87 04/15/17 15:35 04/15/17 16:02 04/15/17 16:02 04/15/17 16:02 04/15/17 16:02 Gen: Pt sitting in chair in NAD HEENT: PERRLA, No accessory muscle usage Lungs: Diminished a/e, No wheeze CVS; S1, S2+, no new murmers Abd: Soft, BS+ Skin: Multiple bruises present Neuro: No focal defecits Ext: Normal ROM, no fractures, no cyanosis Laboratory Results - last 24 hr 04/15/17 04/15/17 04/15/17 05:20 05:20 08:03 INR (Anticoag Therapy) 4.02 H Sodium 126 L Potassium 4.9 Chloride 88 L Carbon Dioxide 31 Anion Gap 7 BUN 13 Creatinine 0.49 L Est GFR ( Amer) 216.4 Est GFR (Non-Af Amer) 168.3 BUN/Creatinine Ratio 26.5 H Glucose 67 L Calcium 8.5 L Ur Random Sodium 120 CXR: Patchy air space opacities at bases b/l with interval worsening- atlectasis or PNA ECHO: Interval worsening of RV function with increased wall thickness and pressure overload, diastolic dysfunction and normal EF CT chest was personally reviewed by me and with pt today- dense consolidations b /l, signifciant emphysema, resolution of previously noted cavitary opacity I/R: 71 y o m with severe emphysema, Apergillus PNA, hypoxia, anemia, GI bleed with worsening SOB, hypoxia, clinical picture consistent with cor pulmonale secondary to chronic hypoxia and rt heart strain with worsening hypoxia requiring high flow O2, likely secondary to Staph PNA. Pt with low reserve to begin with with acute worsening secondary to PNA and recent PE Pt likely with Staph PNA, slight improvement clinically CT chest shows dense consolidations b/l that were not present on earlier CTA chest Abx as per ID Pt reponded well to Voriconazole for fungal PNA with resolution of cavitary lesion C/w O2 supplemetation, titrate as tolerated to maintain 90-92%, still needing 12L today He doesnot qualify per current medicare criteria for Trilogy inspite of severe COPD and recurrent hospitalizations as he doesnot have signficant hypercapnia C/w diuretics, he is on fluid restriction c/w bronchodilators and nebs He is being started on mucomyst nebs Pt with significant deterioration recently due to PNA, PE, severe emphysema Will monitor progress over next few days, will discuss advance directives D/w Juliet Mooney
[2017-04-15] MEDS: Atorvastatin* 20 MG TAB PO SCH (17:18)
[2017-04-16] MEDS: Benzonatate CAP* 100 MG PO SCH ×3 (01:05→17:40)
[2017-04-16] MEDS: Albuterol/Ipratropium NEB.SOL* Albuterol 2.5 MG/Ipratropium 0.5 MG 3 ML INH SCH ×4 (01:12→20:22)
[2017-04-16] MEDS: ceFAZolin 1 GM VIAL(*) 1 GM in NS 0.9% 50 ML* 50 ML IVPB SCH ×3 (05:28→21:17)
[2017-04-16 05:39] LABS: BUN/Creatinine Ratio 22.6 (8-20); Calcium 8.9 mg/dL (8.6-10.3); EGFR African American 197.7 (>60); EGFR Non-African American 153.7 (>60)
[2017-04-16] MEDS: Albuterol/Ipratropium NEB.SOL* Albuterol 2.5 MG/Ipratropium 0.5 MG 3 ML INH PRN (05:39)
[2017-04-16] MEDS: oxyCODONE/Acetamin 5/325 MG* TAB PO PRN ×2 (06:27→17:42)
[2017-04-16] MEDS: Mometasone/Formoter 200/5 MDI INH SCH ×2 (07:34→20:22)
[2017-04-16] MEDS: Tiotropium CAP.INH* CAP.INH/18 MCG INH SCH (07:34)
[2017-04-16] MEDS: VORICONAZOLE 50 MG PO SCH ×2 (08:08→21:18)
[2017-04-16] MEDS: traMADol TAB* 50 MG PO SCH ×3 (08:09→21:18)
[2017-04-16] MEDS: Cholecalciferol TAB* 1000 UNITS PO SCH (08:09)
[2017-04-16] MEDS: amLODIPine TAB* 5 MG PO SCH (08:09)
[2017-04-16] MEDS: Montelukast Sodium TAB* 10 MG PO SCH (08:09)
[2017-04-16] MEDS: Aspirin EC Low Dose* 81 MG TAB.EC PO SCH (08:09)
[2017-04-16] MEDS: guaiFENesin ER TAB 600 MG PO SCH ×2 (08:09→21:18)
[2017-04-16] MEDS: Omeprazole CAP* 20 MG PO SCH ×2 (08:09→21:18)
[2017-04-16] MEDS: Furosemide TAB* 20 MG PO SCH ×2 (08:09→21:17)
--- NOTE | 2017-04-16 08:13 | PN ---
Subjective Date of Service: 04/16/17 Interval History: Patient seen and examined at bedside. Reports one coughing spell and "episode" overnight that brought his O2 down but otherwise states he's been fine. Denies fever/chills, CP, abd pain, n/v. Concerned about finger twitching that occurs when texting. Has been able to mobilize some sputum with metaneb usage. Telemetry: SR 80s Family History: Unchanged from Admission Social History: Unchanged from Admission Past Medical History: Unchanged from Admission Objective Active Medications: Albuterol/Ipratropium (Duoneb (Albuterol 2.5 Mg/Ipratropium 0.5 Mg)) 1 neb INH [id number] AWAKE [facility] Last Admin: 04/16/17 07:34 Dose: 1 neb Albuterol/Ipratropium (Duoneb (Albuterol 2.5 Mg/Ipratropium 0.5 Mg)) 1 neb INH Q4H PRN PRN Reason: SOB/WHEEZING Last Admin: 04/16/17 05:39 Dose: 1 neb Amlodipine Besylate (Norvasc Tab*) 10 mg PO DAILY [facility] Last Admin: 04/15/17 08:22 Dose: 10 mg Aspirin (Aspirin Ec Low Dose*) 81 mg PO DAILY [facility] Last Admin: 04/15/17 08:26 Dose: 81 mg Atorvastatin Calcium (Lipitor*) 20 mg PO QPM [facility] Last Admin: 04/15/17 17:18 Dose: 20 mg Benzonatate (Tessalon Cap*) 200 mg PO Q8H [facility] Last Admin: 04/16/17 01:05 Dose: Not Given Calcium Carbonate (Tums*) 500 mg PO TID PRN PRN Reason: DYSPEPSIA Cholecalciferol (Vitamin D Tab*) 1,000 units PO DAILY [facility] Last Admin: 04/15/17 08:23 Dose: 1,000 units Codeine Sulfate (Codeine Tab*) 15 mg PO Q4H PRN PRN Reason: COUGH Last Admin: 04/15/17 04:12 Dose: 15 mg Cyclobenzaprine HCl (Flexeril Tab*) 10 mg PO TID PRN PRN Reason: PAIN Last Admin: 04/11/17 08:05 Dose: 10 mg Docusate Sodium (Colace Cap*) 100 mg PO BID PRN PRN Reason: CONSTIPATION Last Admin: 04/14/17 10:27 Dose: 100 mg Furosemide (Lasix Tab*) 20 mg PO BID [facility] Last Admin: 04/15/17 19:55 Dose: 20 mg Guaifenesin (Robitussin*) 10 ml PO Q4H PRN PRN Reason: COUGH Last Admin: 04/15/17 01:31 Dose: 10 ml Guaifenesin (Mucinex*) 1,200 mg PO BID [facility] Last Admin: 04/15/17 19:55 Dose: 1,200 mg Cefazolin Sodium 1 gm/ Sodium (Chloride) 50 mls @ 200 mls/hr IVPB Q8H [facility] Last Admin: 04/16/17 05:28 Dose: 200 mls/hr Magnesium Hydroxide (Milk Of Magnyenni Liq*) 30 ml PO Q6H PRN PRN Reason: CONSTIPATION Last Admin: 04/13/17 17:20 Dose: 30 ml Mometasone Furoate/Formoterol Fumar (Dulera 200/5 Mdi*) 2 puff INH BID [facility] PRN Reason: Protocol Last Admin: 04/16/17 07:34 Dose: 2 puff Montelukast Sodium (Singulair Tab*) 10 mg PO DAILY [facility] Last Admin: 04/15/17 08:24 Dose: 10 mg Omeprazole (Prilosec Cap*) 20 mg PO BID [facility] Last Admin: 04/15/17 19:55 Dose: 20 mg Oxycodone/Acetaminophen (Percocet 5/325 Tab*) 1 tab PO Q4H PRN PRN Reason: Pain Last Admin: 04/16/17 06:27 Dose: 1 tab Pharmacy Profile Note (Coumadin Daily Reminder*) 0 note FOLLOW UP 1700 [facility] Last Admin: 04/15/17 18:49 Dose: 1 note Polyethylene Glycol/Electrolytes (Miralax*) 17 gm PO DAILY PRN PRN Reason: CONSTIPATION Senna (Senokot Tab*) 1 tab PO BEDTIME PRN PRN Reason: CONSTIPATION Last Admin: 04/14/17 10:27 Dose: 1 tab Sodium Chloride (Sodium Chloride 0.65% Nasal Drops*) 1 drop BOTH NARES Q4H PRN PRN Reason: nasal congestion Tiotropium Carrie (Spiriva Cap.Inh*) 1 cap INH DAILY [facility] Last Admin: 04/16/17 07:34 Dose: 1 cap Tramadol HCl (Ultram*) 50 mg PO TID [facility] Last Admin: 04/15/17 19:55 Dose: 50 mg Voriconazole (Vfend (Nf)) 200 mg PO BID [facility] PRN Reason: Protocol Last Admin: 04/15/17 19:55 Dose: 200 mg Vital Signs 04/15/17 04/15/17 04/15/17 08:24 08:59 09:00 Temperature Pulse Rate 88 82 80 Respiratory 17 29 16 Rate Blood Pressure 129/74 128/65 (mmHg) O2 Sat by Pulse 90 92 92 Oximetry 04/15/17 04/15/17 04/15/17 09:01 09:20 10:00 Temperature Pulse Rate 84 82 Respiratory 16 24 18 Rate Blood Pressure 120/61 (mmHg) O2 Sat by Pulse 94 91 Oximetry 04/15/17 04/15/17 04/15/17 11:00 11:01 12:00 Temperature 99.0 F Pulse Rate 74 73 79 Respiratory 15 14 27 Rate Blood Pressure 131/63 (mmHg) O2 Sat by Pulse 95 97 97 Oximetry 04/15/17 04/15/17 04/15/17 12:14 12:15 12:30 Temperature Pulse Rate 82 81 80 Respiratory 21 25 15 Rate Blood Pressure 151/90 125/67 (mmHg) O2 Sat by Pulse 95 92 91 Oximetry 04/15/17 04/15/17 04/15/17 12:45 13:00 13:15 Temperature Pulse Rate 86 83 76 Respiratory 16 19 22 Rate Blood Pressure 134/68 113/63 134/80 (mmHg) O2 Sat by Pulse 86 90 93 Oximetry 04/15/17 04/15/17 04/15/17 13:19 13:30 13:46 Temperature Pulse Rate 79 81 83 Respiratory 17 20 17 Rate Blood Pressure 129/68 125/60 (mmHg) O2 Sat by Pulse 95 86 92 Oximetry 04/15/17 04/15/17 04/15/17 14:00 14:01 14:16 Temperature Pulse Rate 80 82 81 Respiratory 20 16 27 Rate Blood Pressure 116/71 131/64 (mmHg) O2 Sat by Pulse 92 92 87 Oximetry 04/15/17 04/15/17 04/15/17 14:30 14:45 15:00 Temperature Pulse Rate 80 80 79 Respiratory 21 15 16 Rate Blood Pressure 105/63 100/81 113/64 (mmHg) O2 Sat by Pulse 91 90 91 Oximetry 04/15/17 04/15/17 04/15/17 15:01 15:30 15:35 Temperature 98.5 F Pulse Rate 80 75 Respiratory 16 15 24 Rate Blood Pressure 129/70 (mmHg) O2 Sat by Pulse 90 95 Oximetry 04/15/17 04/15/17 04/15/17 15:45 16:00 16:02 Temperature Pulse Rate 80 89 81 Respiratory 18 21 18 Rate Blood Pressure 109/69 139/85 (mmHg) O2 Sat by Pulse 92 85 87 Oximetry 04/15/17 04/15/17 04/15/17 16:15 16:30 16:45 Temperature Pulse Rate 79 73 71 Respiratory 14 13 13 Rate Blood Pressure 128/66 128/60 119/58 (mmHg) O2 Sat by Pulse 90 91 94 Oximetry 04/15/17 04/15/17 04/15/17 17:00 17:16 17:18 Temperature Pulse Rate 74 81 Respiratory 19 16 20 Rate Blood Pressure 116/58 139/62 (mmHg) O2 Sat by Pulse 95 86 Oximetry 04/15/17 04/15/17 04/15/17 17:31 17:46 18:00 Temperature Pulse Rate 78 80 84 Respiratory 14 22 16 Rate Blood Pressure 101/60 139/102 148/75 (mmHg) O2 Sat by Pulse 94 93 84 Oximetry 04/15/17 04/15/17 04/15/17 18:16 18:31 19:00 Temperature Pulse Rate 77 87 76 Respiratory 18 19 16 Rate Blood Pressure 130/75 162/68 139/89 (mmHg) O2 Sat by Pulse 84 79 91 Oximetry 04/15/17 04/15/17 04/15/17 19:01 19:15 19:22 Temperature Pulse Rate 79 72 Respiratory 20 19 22 Rate Blood Pressure 122/63 (mmHg) O2 Sat by Pulse 91 91 Oximetry 04/15/17 04/15/17 04/15/17 19:23 19:30 19:45 Temperature 98.8 F Pulse Rate 77 69 Respiratory 19 14 Rate Blood Pressure 128/62 132/78 (mmHg) O2 Sat by Pulse 92 95 Oximetry 04/15/17 04/15/17 04/15/17 20:00 20:02 20:15 Temperature 97.9 F Pulse Rate 91 69 Respiratory 21 23 Rate Blood Pressure 122/93 149/81 (mmHg) O2 Sat by Pulse 82 93 Oximetry 04/15/17 04/15/17 04/15/17 20:30 20:39 20:45 Temperature Pulse Rate 71 74 73 Respiratory 14 16 24 Rate Blood Pressure 123/82 127/67 (mmHg) O2 Sat by Pulse 91 92 97 Oximetry 04/15/17 04/15/17 04/15/17 21:00 21:01 21:15 Temperature Pulse Rate 69 70 73 Respiratory 20 15 19 Rate Blood Pressure 139/61 138/71 (mmHg) O2 Sat by Pulse 96 96 98 Oximetry 04/15/17 04/15/17 04/15/17 21:30 21:45 22:00 Temperature Pulse Rate 73 71 70 Respiratory 16 22 18 Rate Blood Pressure 124/67 135/70 120/63 (mmHg) O2 Sat by Pulse 92 94 96 Oximetry 04/15/17 04/15/17 04/15/17 22:15 22:30 22:45 Temperature Pulse Rate 72 72 72 Respiratory 23 20 18 Rate Blood Pressure 126/65 128/69 131/69 (mmHg) O2 Sat by Pulse 94 93 89 Oximetry 04/15/17 04/15/17 04/15/17 23:00 23:03 23:05 Temperature Pulse Rate 79 72 72 Respiratory 14 16 22 Rate Blood Pressure 160/75 143/74 (mmHg) O2 Sat by Pulse 89 88 90 Oximetry 04/15/17 04/16/17 04/16/17 23:26 00:00 01:00 Temperature 97.5 F Pulse Rate 69 68 Respiratory 20 15 Rate Blood Pressure 102/66 (mmHg) O2 Sat by Pulse 89 96 Oximetry 04/16/17 04/16/17 04/16/17 01:14 01:16 02:00 Temperature Pulse Rate 73 63 Respiratory 16 15 Rate Blood Pressure (mmHg) O2 Sat by Pulse 93 95 98 Oximetry 04/16/17 04/16/17 04/16/17 03:00 03:24 04:00 Temperature 98.0 F Pulse Rate 81 73 Respiratory 15 14 Rate Blood Pressure 107/70 (mmHg) O2 Sat by Pulse 96 96 Oximetry 04/16/17 04/16/17 04/16/17 04:01 05:00 05:41 Temperature Pulse Rate 73 78 85 Respiratory 15 24 14 Rate Blood Pressure (mmHg) O2 Sat by Pulse 96 99 88 Oximetry 04/16/17 04/16/1717 06:00 06:27 07:00 Temperature Pulse Rate 88 87 Respiratory 21 22 20 Rate Blood Pressure (mmHg) O2 Sat by Pulse 91 92 Oximetry 04/16/17 07:49 Temperature 98.1 F Pulse Rate Respiratory 20 Rate Blood Pressure (mmHg) O2 Sat by Pulse Oximetry Oxygen Devices in Use Now: Nasal Cannula - [place] 12L Appearance: Older male patient, OOB to chair, in NAD Eyes: No Scleral Icterus Ears/Nose/Mouth/Throat: Clear Oropharnyx, Mucous Membranes Moist Neck: NL Appearance and Movements; NL JVP Respiratory: Symmetrical Chest Expansion and Respiratory Effort, - - exp rhonchi , decreased breath sounds Cardiovascular: NL Sounds; No Murmurs; No JVD, RRR Abdominal: NL Sounds; No Tenderness; No Distention Extremities: - - +1 pitting edema, pretibial and prominent in ankles and feet Neurological: Alert and Oriented x 3, NL Muscle Strength and Tone, - - resting tremor/twitching to hands and fingers Lines/Tubes/Other Access: Clean, Dry and Intact Peripheral IV Nutrition: Taking PO's Result Diagrams: 04/14/17 05:16 04/16/17 05:11 Additional Lab and Data: Microbiology and Other Data: Microbiology 04/07/17 15:34 Gram Stain - Final Sputum Expectorated Sputum Culture - Preliminary Staphylococcus Aureus Assess/Plan/Problems-Billing Mr Celis is a 71 yo M with a h/o chronic hypoxic respiratory failure secondary to COPD on O2, 3.5L continuously, invasive pulmonary aspergillosis, recent dx for PE and CAD who presented to the ER with c/o progressive SOB, gurgling respirations and hypoxia. - Patient Problems (1) Acute and chronic respiratory failure with hypoxia Code(s): J96.21 - ACUTE AND CHRONIC RESPIRATORY FAILURE WITH HYPOXIA Comment: Improved, patient has been weaned from vapotherm and is on 12-15L with [place] Secondary to pneumonia, invasive aspergillosis, and PE in the setting of COPD CT chest showed worsening bibabasilar consolidation. At baseline, patient wears 2L O2 at home. Appreciate pulmonology and ID consults. (2) SOB (shortness of breath) Code(s): R06.02 - SHORTNESS OF BREATH Comment: Improving Appreciate consultations from Dr. Means and Dr. Israel. Likely multifactorial secondary to baseline COPD, invasive pulmonary aspergillosis, newly diagnosed PE, and now pna. Continue Ancef, based on susceptibilities for staph and stenotrophomas. Continue voriconazole for aspergillus. (3) Hyponatremia Code(s): E87.1 - HYPO-OSMOLALITY AND HYPONATREMIA Comment: Improved Continue fluid restriction Awaiting urine studies Continue to follow. (4) Pneumonia Code(s): J18.9 - PNEUMONIA, UNSPECIFIED ORGANISM Comment: Sputum has now grown S. aureus and stenotrophomonas multophilia. Continue cefazolin, per Dr. Means's recommendations. (5) Pulmonary embolism with acute cor pulmonale Current Visit: Yes Status: Acute Code(s): I26.09 - OTHER PULMONARY EMBOLISM WITH ACUTE COR PULMONALE SNOMED Code(s): 48381110 Comment: Clinical picture consistent with cor pulmonale secondary to chronic hypoxia and rt heart strain with worsening hypoxia Echocardiogram shows interval worsening of RV function with increased wall thickness and pressure overload, diastolic dysfunction, and normal EF Continue warfarin, monitor INR (6) Aspergillosis Code(s): B44.9 - ASPERGILLOSIS, UNSPECIFIED Comment: Continue voriconazole. Follow up with Dr. Means as outpatient. (7) Atrial fibrillation Code(s): I48.91 - UNSPECIFIED ATRIAL FIBRILLATION Comment: Hx of paroxysmal afib Currently in sinus rhythm Continue to monitor Anticoagulated with warfarin (8) COPD (chronic obstructive pulmonary disease) Code(s): J44.9 - CHRONIC OBSTRUCTIVE PULMONARY DISEASE, UNSPECIFIED Comment: No signs of exacerbation. Continue home inhaler regimen. (9) HTN (hypertension) Code(s): I10 - ESSENTIAL (PRIMARY) HYPERTENSION Comment: Normotensive Continue amlodipine and furosemide. (10) HLD (hyperlipidemia) Code(s): E78.5 - HYPERLIPIDEMIA, UNSPECIFIED Comment: Continue atorvastatin. (11) DVT prophylaxis SNOMED Code(s): 182916243 Comment: INR 3.26 Daily INR Give warfarin 1 mg today. (12) Full code status Code(s): Z78.9 - OTHER SPECIFIED HEALTH STATUS Status and Disposition: Inpatient with expected LOS > 2 days. Anticipate discharge to home when medically stable.
[2017-04-16] MEDS: Docusate CAP* 100 MG PO PRN (13:09)
[2017-04-16] MEDS: Warfarin TAB(*) 1 MG PO SCH (17:40)
[2017-04-16] MEDS: Atorvastatin* 20 MG TAB PO SCH (17:40)
[2017-04-17] MEDS: Benzonatate CAP* 100 MG PO SCH ×3 (00:29→17:44)
[2017-04-17] MEDS: Albuterol/Ipratropium NEB.SOL* Albuterol 2.5 MG/Ipratropium 0.5 MG 3 ML INH SCH ×4 (00:32→19:08)
[2017-04-17] MEDS: Saline NASAL DROPS 0.65%* 1 DROP BTL BOTH NARES PRN (04:45)
[2017-04-17] MEDS: ceFAZolin 1 GM VIAL(*) 1 GM in NS 0.9% 50 ML* 50 ML IVPB SCH ×3 (04:46→20:02)
[2017-04-17 06:25] LABS: BUN/Creatinine Ratio 25.8 (8-20); Calcium 8.6 mg/dL (8.6-10.3); EGFR African American 153.5 (>60); EGFR Non-African American 119.3 (>60); Potassium 4.4 mmol/L (3.5-5.0)
[2017-04-17] MEDS: Mometasone/Formoter 200/5 MDI INH SCH ×2 (07:11→19:08)
[2017-04-17] MEDS: Tiotropium CAP.INH* CAP.INH/18 MCG INH SCH (07:12)
[2017-04-17] MEDS: Cholecalciferol TAB* 1000 UNITS PO SCH (08:19)
[2017-04-17] MEDS: traMADol TAB* 50 MG PO SCH ×3 (08:19→20:03)
[2017-04-17] MEDS: Furosemide TAB* 20 MG PO SCH ×2 (08:19→08:56)
[2017-04-17] MEDS: Docusate CAP* 100 MG PO PRN (08:19)
[2017-04-17] MEDS: Aspirin EC Low Dose* 81 MG TAB.EC PO SCH (08:20)
[2017-04-17] MEDS: Omeprazole CAP* 20 MG PO SCH ×2 (08:20→20:03)
[2017-04-17] MEDS: guaiFENesin ER TAB 600 MG PO SCH ×2 (08:20→20:03)
[2017-04-17] MEDS: amLODIPine TAB* 5 MG PO SCH (08:20)
[2017-04-17] MEDS: Montelukast Sodium TAB* 10 MG PO SCH (08:20)
[2017-04-17] MEDS: VORICONAZOLE 50 MG PO SCH ×2 (08:23→20:03)
--- NOTE | 2017-04-17 08:35 | PN ---
Progress Note - Progress Note Date of Service: 04/17/17 - Pulm consult f/u note Note: Pt seen and examined at bedside this am. No acute events o/n. Pt reports feeling better. Is able to expectorate phleghm. Still needing 12 L O2 supplementation. Active Medications Generic Name Dose Route Start Last Admin Trade Name Freq PRN Reason Stop Dose Admin Albuterol/Ipratropium 1 neb 04/10/17 19:00 04/17/17 07:11 Duoneb (Albuterol 2.5 Mg/Ipratropium 0.5 Mg) INH 1 neb [id number] AWAKE SHAUNA Administration Albuterol/Ipratropium 1 neb 04/13/17 03:33 04/16/17 05:39 Duoneb (Albuterol 2.5 Mg/Ipratropium 0.5 Mg) INH 1 neb Q4H PRN Administration SOB/WHEEZING Amlodipine Besylate 10 mg 04/07/17 09:00 04/17/17 08:20 Norvasc Tab* PO 10 mg DAILY SHAUNA Administration Aspirin 81 mg 04/07/17 09:00 04/17/17 08:20 Aspirin Ec Low Dose* PO 81 mg DAILY [facility]AUNA Administration Atorvastatin Calcium 20 mg 04/07/17 18:00 04/16/17 17:40 Lipitor* PO 20 mg QPM SHAUNA Administration Benzonatate 200 mg 04/12/17 01:00 04/17/17 08:19 Tessalon Cap* PO 200 mg Q8H [facility]AUNA Administration Calcium Carbonate 500 mg 04/13/17 17:25 Tums* PO TID PRN DYSPEPSIA Cholecalciferol 1,000 units 04/07/17 09:00 04/17/17 08:19 Vitamin D Tab* PO 1,000 units DAILY [facility]AUNA Administration Codeine Sulfate 15 mg 04/12/17 00:54 04/15/17 04:12 Codeine Tab* PO 15 mg Q4H PRN Administration COUGH Cyclobenzaprine HCl 10 mg 04/07/17 08:59 04/11/17 08:05 Flexeril Tab* PO 10 mg TID PRN Administration PAIN Docusate Sodium 100 mg 04/09/17 15:35 04/17/17 08:19 Colace Cap* PO 100 mg BID PRN Administration CONSTIPATION Furosemide 20 mg 04/17/17 09:00 Lasix Tab* PO DAILY [facility]AUNA Guaifenesin 10 ml 04/10/17 12:32 04/15/17 01:31 Robitussin* PO 10 ml Q4H PRN Administration COUGH Guaifenesin 1,200 mg 04/15/17 09:00 04/17/17 08:20 Mucinex* PO 1,200 mg BID [facility]AUNA Administration Cefazolin Sodium 1 gm/ Sodium 50 mls @ 200 mls/hr 04/13/17 13:00 04/17/17 04: 46 Chloride IVPB 200 mls/hr Q8H [facility]AUNA Administration Magnesium Hydroxide 30 ml 04/09/17 15:35 04/13/17 17:20 Milk Of Magnesia Liq* PO 30 ml Q6H PRN Administration CONSTIPATION Mometasone Furoate/Formoterol Fumar 2 puff 04/07/17 09:00 04/17/17 07:11 Dulera 200/5 Mdi* INH 2 puff BID [facility]AUNA Administration Protocol Montelukast Sodium 10 mg 04/07/17 09:00 04/17/17 08:20 Singulair Tab* PO 10 mg DAILY [facility] Administration Omeprazole 20 mg 04/07/17 09:00 04/17/17 08:20 Prilosec Cap* PO 20 mg BID [facility]AUNA Administration Oxycodone/Acetaminophen 1 tab 04/07/17 08:59 04/16/17 17:42 Percocet 5/325 Tab* PO 1 tab Q4H PRN Administration Pain Pharmacy Profile Note 0 note 04/07/17 17:00 04/16/17 17:40 Coumadin Daily Reminder* FOLLOW UP 1 note 1700 [facility] Administration Polyethylene Glycol/Electrolytes 17 gm 04/09/17 15:35 Miralax* PO DAILY PRN CONSTIPATION Senna 1 tab 04/09/17 15:35 04/14/17 10:27 Senokot Tab* PO 1 tab BEDTIME PRN Administration CONSTIPATION Sodium Chloride 1 drop 04/11/17 11:33 04/17/17 04:45 Sodium Chloride 0.65% Nasal Drops* BOTH NARES 1 drop Q4H PRN Administration nasal congestion Tiotropium [place] 1 cap 04/07/17 09:00 04/17/17 07:12 Spiriva Cap.Inh* INH 1 cap DAILY [facility] Administration Tramadol HCl 50 mg 04/11/17 14:00 04/17/17 08:19 Ultram* PO 50 mg TID [facility]AUNA Administration Voriconazole 200 mg 04/07/17 21:00 04/17/17 08:23 Vfend (Nf) PO 200 mg BID [facility] Administration Protocol Warfarin Sodium 1 mg 04/16/17 17:00 04/16/17 17:40 Coumadin Tab(*) PO 1 mg DAILY@1700 [facility] Administration Protocol Vital Signs Temp Pulse Resp BP Pulse Ox 97.9 F 90 15 114/58 90 04/17/17 07:25 04/17/17 07:17 04/17/17 07:43 04/17/17 04:00 04/17/17 07:17 Pt seen and examined at bedside in ICU today. Pt reports that his breathing has worsened again today. he is off high flow O2, is on 12L O2. He c/o being unable to expectorate phleghm. Active Medications Generic Name Dose Route Start Last Admin Trade Name Freq PRN Reason Stop Dose Admin Albuterol/Ipratropium 1 neb 04/10/17 19:00 04/15/17 13:17 Duoneb (Albuterol 2.5 Mg/Ipratropium 0.5 Mg) INH 1 neb [id number] AWAKE SHAUNA Administration Albuterol/Ipratropium 1 neb 04/13/17 03:33 Duoneb (Albuterol 2.5 Mg/Ipratropium 0.5 Mg) INH Q4H PRN SOB/WHEEZING Amlodipine Besylate 10 mg 04/07/17 09:00 04/15/17 08:22 Norvasc Tab* PO 10 mg DAILY [facility] Administration Aspirin 81 mg 04/07/17 09:00 04/15/17 08:26 Aspirin Ec Low Dose* PO 81 mg DAILY [facility]NA Administration Atorvastatin Calcium 20 mg 04/07/17 18:00 04/14/17 18:16 Lipitor* PO 20 mg QPM [facility]AUNA Administration Benzonatate 200 mg 04/12/17 01:00 04/15/17 08:25 Tessalon Cap* PO 200 mg Q8H [facility]AUNA Administration Calcium Carbonate 500 mg 04/13/17 17:25 Tums* PO TID PRN DYSPEPSIA Cholecalciferol 1,000 units 04/07/17 09:00 04/15/17 08:23 Vitamin D Tab* PO 1,000 units DAILY [facility] Administration Codeine Sulfate 15 mg 04/12/17 00:54 04/15/17 04:12 Codeine Tab* PO 15 mg Q4H PRN Administration COUGH Cyclobenzaprine HCl 10 mg 04/07/17 08:59 04/11/17 08:05 Flexeril Tab* PO 10 mg TID PRN Administration PAIN Docusate Sodium 100 mg 04/09/17 15:35 04/14/17 10:27 Colace Cap* PO 100 mg BID PRN Administration CONSTIPATION Furosemide 20 mg 04/09/17 09:00 04/15/17 08:24 Lasix Tab* PO 20 mg BID SHAUNA Administration Guaifenesin 10 ml 04/10/17 12:32 04/15/17 01:31 Robitussin* PO 10 ml Q4H PRN Administration COUGH Guaifenesin 1,200 mg 04/15/17 09:00 04/15/17 08:26 Mucinex* PO 1,200 mg BID [facility]AUNA Administration Cefazolin Sodium 1 gm/ Sodium 50 mls @ 200 mls/hr 04/13/17 13:00 04/15/17 12: 26 Chloride IVPB 200 mls/hr Q8H [facility]AUNA Administration Magnesium Hydroxide 30 ml 04/09/17 15:35 04/13/17 17:20 Milk Of Magnesia Liq* PO 30 ml Q6H PRN Administration CONSTIPATION Mometasone Furoate/Formoterol Fumar 2 puff 04/07/17 09:00 04/15/17 07:19 Dulera 200/5 Mdi* INH 2 puff BID SHAUNA Administration Protocol Montelukast Sodium 10 mg 04/07/17 09:00 04/15/17 08:24 Singulair Tab* PO 10 mg DAILY [facility]AUNA Administration Omeprazole 20 mg 04/07/17 09:00 04/15/17 08:23 Prilosec Cap* PO 20 mg BID [facility]AUNA Administration Oxycodone/Acetaminophen 1 tab 04/07/17 08:59 04/15/17 09:20 Percocet 5/325 Tab* PO 1 tab Q4H PRN Administration Pain Pharmacy Profile Note 0 note 04/07/17 17:00 04/14/17 17:48 Coumadin Daily Reminder* FOLLOW UP Not Given 1700 [facility]AUNA Polyethylene Glycol/Electrolytes 17 gm 04/09/17 15:35 Miralax* PO DAILY PRN CONSTIPATION Senna 1 tab 08/03/17 15:35 04/14/17 10:27 Senokot Tab* PO 1 tab BEDTIME PRN Administration CONSTIPATION Sodium Chloride 1 drop 04/11/17 11:33 Sodium Chloride 0.65% Nasal Drops* BOTH NARES Q4H PRN nasal congestion Tiotropium [place] 1 cap 04/07/17 09:00 04/15/17 07:19 Spiriva Cap.Inh* INH 1 cap DAILY [facility]NA Administration Tramadol HCl 50 mg 04/11/17 14:00 04/15/17 14:49 Ultram* PO 50 mg TID [facility]AUNA Administration Voriconazole 200 mg 04/07/17 21:00 04/15/17 08:24 Vfend (Nf) PO 200 mg BID [facility]AUNA Administration Protocol Vital Signs Temp Pulse Resp BP Pulse Ox 98.5 F 81 18 139/85 87 04/15/17 15:35 04/15/17 16:02 04/15/17 16:02 04/15/17 16:02 04/15/17 16:02 Gen: Pt sitting in chair in NAD, alert, awake, no distress, able to talk full sentences HEENT: PERRLA, No accessory muscle usage Lungs: Diminished a/e at bases, No wheeze CVS; S1, S2+, no new murmers Abd: Soft, BS+ Skin: Multiple bruises present Neuro: No focal defecits Ext: Normal ROM, no fractures, no cyanosis Laboratory Results - last 24 hr 04/15/17 04/15/17 04/17/17 08:03 09:49 06:00 INR (Anticoag Therapy) Sodium 129 L Potassium 4.4 Chloride 91 L Carbon Dioxide 31 Anion Gap 7 BUN 17 Creatinine 0.66 L Est GFR ( Amer) 153.5 Est GFR (Non-Af Amer) 119.3 BUN/Creatinine Ratio 25.8 H Glucose 117 H Osmolality 265 L Calcium 8.6 Urine Osmolality 437 04/17/17 06:00 INR (Anticoag Therapy) 2.73 H Sodium Potassium Chloride Carbon Dioxide Anion Gap BUN Creatinine Est GFR ( Amer) Est GFR (Non-Af Amer) BUN/Creatinine Ratio Glucose Osmolality Calcium Urine Osmolality CXR: Patchy air space opacities at bases b/l with interval worsening- atlectasis or PNA, will rpt today/tomorrow ECHO: Interval worsening of RV function with increased wall thickness and pressure overload, diastolic dysfunction and normal EF CT chest- dense consolidations b/l, signifciant emphysema, resolution of previously noted cavitary opacity I/R: 71 y o m with severe emphysema, Apergillus PNA, hypoxia, anemia, GI bleed with worsening SOB, hypoxia, clinical picture consistent with cor pulmonale secondary to chronic hypoxia and rt heart strain with worsening hypoxia requiring high FiO2 still 1. Staph PNA. 2. Emphysema 3. Aspergillus PNA 4. Acute on chronic hypoxic resp failure 5. Anemia 6. Hyponatremia- SIADH versus sec to diuretics Pt with low reserve to begin with with acute worsening secondary to PNA and recent PE, off high flow, slight improvement Was able to expectorate secretions after meta nebs Might need bronch for air way clearance and BAL for cultures Will discuss with pt CT chest shows dense consolidations b/l that were not present on earlier CTA chest Abx as per ID Pt reponded well to Voriconazole for fungal PNA with resolution of cavitary lesion C/w O2 supplemetation, titrate as tolerated to maintain 90-92%, still needing 12L still He doesnot qualify per current medicare criteria for Trilogy inspite of severe COPD and recurrent hospitalizations as he doesnot have signficant hypercapnia C/w diuretics, he is on fluid restriction, will lower Lasix to 20 mg daily given hyponatremia c/w bronchodilators and nebs
--- NOTE | 2017-04-17 13:11 | PN ---
Subjective Date of Service: 04/17/17 Interval History: Patient seen this morning. Reports breathing is stable, he has been expectorating more sputum after metanebs began yesterday. Reports much of it he has been swallowing, although what he has been able to produce appears brown, non-bloody. Denies fever or chills. Reports LE edema has improved. Family History: Unchanged from Admission Social History: Unchanged from Admission Past Medical History: Unchanged from Admission Objective Active Medications: Albuterol/Ipratropium (Duoneb (Albuterol 2.5 Mg/Ipratropium 0.5 Mg)) 1 neb INH [id number] AWAKE SHAUNA Albuterol/Ipratropium (Duoneb (Albuterol 2.5 Mg/Ipratropium 0.5 Mg)) 1 neb INH Q4H PRN Amlodipine Besylate (Norvasc Tab*) 10 mg PO DAILY SHAUNA Aspirin (Aspirin Ec Low Dose*) 81 mg PO DAILY SHAUNA Atorvastatin Calcium (Lipitor*) 20 mg PO QPM SHAUNA Benzonatate (Tessalon Cap*) 200 mg PO Q8H SHAUNA Calcium Carbonate (Tums*) 500 mg PO TID PRN Cholecalciferol (Vitamin D Tab*) 1,000 units PO DAILY SHAUNA Codeine Sulfate (Codeine Tab*) 15 mg PO Q4H PRN Cyclobenzaprine HCl (Flexeril Tab*) 10 mg PO TID PRN Docusate Sodium (Colace Cap*) 100 mg PO BID PRN Furosemide (Lasix Tab*) 20 mg PO DAILY SHAUNA Guaifenesin (Robitussin*) 10 ml PO Q4H PRN Guaifenesin (Mucinex*) 1,200 mg PO BID SHAUNA Cefazolin Sodium 1 gm/ Sodium (Chloride) 50 mls @ 200 mls/hr IVPB Q8H SHAUNA Magnesium Hydroxide (Milk Of Magnesia Liq*) 30 ml PO Q6H PRN Mometasone Furoate/Formoterol Fumar (Dulera 200/5 Mdi*) 2 puff INH BID SHAUNA Montelukast Sodium (Singulair Tab*) 10 mg PO DAILY SHAUNA Omeprazole (Prilosec Cap*) 20 mg PO BID SHAUNA Oxycodone/Acetaminophen (Percocet 5/325 Tab*) 1 tab PO Q4H PRN Pharmacy Profile Note (Coumadin Daily Reminder*) 0 note FOLLOW UP [facility] Polyethylene Glycol/Electrolytes (Miralax*) 17 gm PO DAILY PRN Senna (Senokot Tab*) 1 tab PO BEDTIME PRN Sodium Chloride (Sodium Chloride 0.65% Nasal Drops*) 1 drop BOTH NARES Q4H PRN Tiotropium [place] (Spiriva Cap.Inh*) 1 cap INH DAILY [facility] Tramadol HCl (Ultram*) 50 mg PO TID [facility] Voriconazole (Vfend (Nf)) 200 mg PO BID [facility] Warfarin Sodium (Coumadin Tab(*)) 1 mg PO DAILY@[facility] Vital Signs 04/16/17 04/16/17 04/16/17 14:00 15:00 15:26 Temperature Pulse Rate 83 87 89 Respiratory 17 22 19 Rate Blood Pressure 105/66 (mmHg) O2 Sat by Pulse 91 90 88 Oximetry 04/16/17 04/16/17 04/16/17 15:42 16:00 16:01 Temperature 98.5 F Pulse Rate 91 91 Respiratory 25 28 Rate Blood Pressure 123/61 (mmHg) O2 Sat by Pulse 89 90 Oximetry 04/17/17 04/17/17 04/17/17 08: 09:00 10:00 Temperature Pulse Rate 87 95 87 Respiratory 17 20 Rate Blood Pressure 111/68 (mmHg) O2 Sat by Pulse 92 86 81 Oximetry Oxygen Devices in Use Now: Nasal Cannula - [place] 12L Appearance: Elderly, M, laying in bed in NAD Eyes: No Scleral Icterus Ears/Nose/Mouth/Throat: Mucous Membranes Moist Neck: NL Appearance and Movements; NL JVP Respiratory: Symmetrical Chest Expansion and Respiratory Effort, - - Prolonged expiratory phase, no wheezing, diminished BS and rales in lower lung jules B/L Cardiovascular: NL Sounds; No Murmurs; No JVD, RRR Abdominal: NL Sounds; No Tenderness; No Distention Lymphatic: No Cervical Adenopathy Extremities: - - B/L ankle edema Skin: No Rash or Ulcers Neurological: Alert and Oriented x 3 Result Diagrams: 04/14/17 05:16 04/17/17 06:00 Additional Lab and Data: Assess/Plan/Problems-Billing Mr Celis is a 71 yo M with a h/o chronic hypoxic respiratory failure secondary to COPD on O2, 3.5L continuously, invasive pulmonary aspergillosis, recent dx for PE and CAD who presented to the ER with c/o progressive SOB, gurgling respirations and hypoxia found to have staph aureus PNA - Patient Problems (1) Acute and chronic respiratory failure with hypoxia Current Visit: Yes Comment: Improved, patient has been weaned from vapotherm and is on 12L with [place] Secondary to pneumonia, invasive aspergillosis, and PE in the setting of COPD CT from 04/14 showed worsening bibabasilar consolidation. Appreciate pulmonology and ID consults. Diuretics (2) Hyponatremia Current Visit: Yes Comment: Improved Continue fluid restriction Urine studies unreliable with Lasix dosing Continue to follow. (3) Pneumonia Current Visit: Yes Comment: Sputum has now grown S. aureus and stenotrophomonas multophilia. Continue cefazolin, per Dr. Means's recommendations. (4) Pulmonary embolism Current Visit: Yes Comment: Continue coumadin, dosed by pharmacy (5) Cor pulmonale Current Visit: Yes Comment: Likely due to combination of PNA, PE, COPD, hypoxia (6) Aspergillosis Current Visit: Yes Comment: Continue voriconazole. Follow up with Dr. Means as outpatient. (7) Atrial fibrillation Current Visit: No Comment: Hx of paroxysmal afib Currently in sinus rhythm Continue to monitor Anticoagulated with warfarin (8) HTN (hypertension) Current Visit: No Comment: Normotensive Continue amlodipine and furosemide. (9) DVT prophylaxis Current Visit: Yes Comment: Coumadin, dose per pharmacy Status and Disposition: Inpatient with expected LOS > 2 days. Anticipate discharge to home when medically stable.
[2017-04-17] MEDS: Atorvastatin* 20 MG TAB PO SCH (17:44)
[2017-04-17] MEDS: Warfarin TAB(*) 1 MG PO SCH (17:46)
[2017-04-17] MEDS ORDERED: Warfarin TAB(*) 2 MG PO ONE (18:00)
[2017-04-18] MEDS: Albuterol/Ipratropium NEB.SOL* Albuterol 2.5 MG/Ipratropium 0.5 MG 3 ML INH SCH ×4 (00:28→19:29)
[2017-04-18] MEDS: Saline NASAL DROPS 0.65%* 1 DROP BTL BOTH NARES PRN ×2 (00:44→07:02)
[2017-04-18] MEDS: Benzonatate CAP* 100 MG PO SCH ×3 (00:46→16:44)
[2017-04-18] MEDS: ceFAZolin 1 GM VIAL(*) 1 GM in NS 0.9% 50 ML* 50 ML IVPB SCH ×3 (04:44→20:32)
[2017-04-18 05:49] LABS: Hematocrit 28 % (42-52); Hemoglobin 8.7 g/dl (14.0-18.0)
[2017-04-18 06:45] LABS: BUN/Creatinine Ratio 36.4 (8-20); Calcium 8.5 mg/dL (8.6-10.3); EGFR African American 189.4 (>60); EGFR Non-African American 147.3 (>60); Potassium 4.4 mmol/L (3.5-5.0)
[2017-04-18] MEDS: Mometasone/Formoter 200/5 MDI INH SCH ×2 (07:45→19:30)
[2017-04-18] MEDS: Tiotropium CAP.INH* CAP.INH/18 MCG INH SCH (07:45)
[2017-04-18] MEDS ORDERED: fentaNYL* 50 MCG/ML 2 ML VIAL (100 MCG VIAL) ONE (08:20)
[2017-04-18] MEDS ORDERED: Lidocaine 2% PF * 5 ML VIAL ONE ×2 (08:20→08:54)
[2017-04-18] MEDS ORDERED: Flumazenil* 0.1 MG/ML 5 ML MDV ONE (08:20)
[2017-04-18] MEDS ORDERED: Lidocaine 2% VISCOUS* 15 ML UDC ONE ×2 (08:21→08:54)
[2017-04-18] MEDS ORDERED: Midazolam* 1 MG/ML 10 ML VIAL (10 MG) ONE (08:21)
[2017-04-18] MEDS ORDERED: Naloxone* 0.4 MG/ML 1 ML VIAL ONE (08:21)
--- NOTE | 2017-04-18 08:45 | PN ---
Progress Note - Progress Note Date of Service: 04/18/17 - Pulmonary f/u note Note: Pt seen and examined at bedside this am. No acute events o/n. Pt reports inability to expectorate phleghm. Reports feeling more congested. Still needing 12 L O2 supplementation. Active Medications Generic Name Dose Route Start Last Admin Trade Name Freq PRN Reason Stop Dose Admin Albuterol/Ipratropium 1 neb 04/10/17 19:00 04/18/17 07:45 Duoneb (Albuterol 2.5 Mg/Ipratropium 0.5 Mg) INH 1 neb [id number] AWAKE SHAUNA Administration Albuterol/Ipratropium 1 neb 04/13/17 03:33 04/16/17 05:39 Duoneb (Albuterol 2.5 Mg/Ipratropium 0.5 Mg) INH 1 neb Q4H PRN Administration SOB/WHEEZING Amlodipine Besylate 10 mg 04/07/17 09:00 04/17/17 08:20 Norvasc Tab* PO 10 mg DAILY SHAUNA Administration Aspirin 81 mg 04/07/17 09:00 04/17/17 08:20 Aspirin Ec Low Dose* PO 81 mg DAILY SHAUNA Administration Atorvastatin Calcium 20 mg 04/07/17 18:00 04/17/17 17:44 Lipitor* PO 20 mg QPM SHAUNA Administration Benzonatate 200 mg 04/12/17 01:00 04/18/17 00:46 Tessalon Cap* PO 200 mg Q8H SHAUNA Administration Calcium Carbonate 500 mg 04/13/17 17:25 Tums* PO TID PRN DYSPEPSIA Cholecalciferol 1,000 units 04/07/17 09:00 04/17/17 08:19 Vitamin D Tab* PO 1,000 units DAILY SHAUNA Administration Codeine Sulfate 15 mg 04/12/17 00:54 04/15/17 04:12 Codeine Tab* PO 15 mg Q4H PRN Administration COUGH Cyclobenzaprine HCl 10 mg 04/07/17 08:59 04/11/17 08:05 Flexeril Tab* PO 10 mg TID PRN Administration PAIN Docusate Sodium 100 mg 04/09/17 15:35 04/17/17 08:19 Colace Cap* PO 100 mg BID PRN Administration CONSTIPATION Furosemide 20 mg 04/17/17 09:00 04/17/17 08:56 Lasix Tab* PO Not Given DAILY SHAUNA Guaifenesin 10 ml 04/10/17 12:32 04/15/17 01:31 Robitussin* PO 10 ml Q4H PRN Administration COUGH Guaifenesin 1,200 mg 04/15/17 09:00 04/17/17 20:03 Mucinex* PO 1,200 mg BID SHAUNA Administration Cefazolin Sodium 1 gm/ Sodium 50 mls @ 200 mls/hr 04/13/17 13:00 04/18/17 04: 44 Chloride IVPB 200 mls/hr Q8H SHAUNA Administration Magnesium Hydroxide 30 ml 04/09/17 15:35 04/13/17 17:20 Milk Of Magnesia Liq* PO 30 ml Q6H PRN Administration CONSTIPATION Mometasone Furoate/Formoterol Fumar 2 puff 04/07/17 09:00 04/18/17 07:45 Dulera 200/5 Mdi* INH 2 puff BID SHAUNA Administration Protocol Montelukast Sodium 10 mg 04/07/17 09:00 04/17/17 08:20 Singulair Tab* PO 10 mg DAILY SHAUNA Administration Omeprazole 20 mg 04/07/17 09:00 04/17/17 20:03 Prilosec Cap* PO 20 mg BID SHAUNA Administration Oxycodone/Acetaminophen 1 tab 04/07/17 08:59 04/16/17 17:42 Percocet 5/325 Tab* PO 1 tab Q4H PRN Administration Pain Pharmacy Profile Note 0 note 04/07/17 17:00 04/17/17 17:44 Coumadin Daily Reminder* FOLLOW UP 1 note 1700 [facility] Administration Pharmacy Profile Note 1 note 04/17/17 18:00 Coumadin Per Pharmacy* FOLLOW UP .PER PHARMACY PROTOC [facility] Protocol Polyethylene Glycol/Electrolytes 17 gm 04/09/17 15:35 Miralax* PO DAILY PRN CONSTIPATION Senna 1 tab 04/09/17 15:35 04/14/17 10:27 Senokot Tab* PO 1 tab BEDTIME PRN Administration CONSTIPATION Sodium Chloride 1 drop 04/11/17 11:33 04/18/17 07:02 Sodium Chloride 0.65% Nasal Drops* BOTH NARES 1 drop Q4H PRN Administration nasal congestion Tiotropium [place] 1 cap 04/07/17 09:00 04/18/17 07:45 Spiriva Cap.Inh* INH 1 cap DAILY SHAUNA Administration Tramadol HCl 50 mg 04/11/17 14:00 04/17/17 20:03 Ultram* PO 50 mg TID SHAUNA Administration Voriconazole 200 mg 04/07/17 21:00 04/17/17 20:03 Vfend (Nf) PO 200 mg BID SHAUNA Administration Protocol Vital Signs Temp Pulse Resp BP Pulse Ox 97.3 F 88 20 99/69 96 04/18/17 04:00 04/18/17 07:51 04/18/17 07:51 04/18/17 04:00 04/18/17 07:51 Gen: Pt sitting in chair in NAD, alert, awake, no distress, able to talk full sentences, coughing with moist cough noted HEENT: PERRLA, No accessory muscle usage Lungs: Diminished a/e at bases, No wheeze, crackles at bases CVS; S1, S2+, no new murmers, has faint systolic murmer Abd: Soft, BS+ Skin: Multiple bruises present from blood draws and IVs Neuro: No focal defecits Ext: Normal ROM, no fractures, no cyanosis Laboratory Results - last 24 hr 04/18/17 04/18/17 04/18/17 04:51 05:22 05:22 Hgb 8.7 L Hct 28 L INR (Anticoag Therapy) 2.32 H Sodium 132 L Potassium 4.4 Chloride 94 L Carbon Dioxide 31 Anion Gap 7 BUN 20 Creatinine 0.55 L Est GFR ( Amer) 189.4 Est GFR (Non-Af Amer) 147.3 BUN/Creatinine Ratio 36.4 H Glucose 114 H Calcium 8.5 L CXR 04/18/17: Patchy air space opacities at bases b/l, slightly improved aeration ECHO: Interval worsening of RV function with increased wall thickness and pressure overload, diastolic dysfunction and normal EF CT chest- dense consolidations b/l, signifciant emphysema, resolution of previously noted cavitary opacity I/R: 71 y o m with severe emphysema, Apergillus PNA, hypoxia, anemia, GI bleed with worsening SOB, hypoxia, clinical picture consistent with cor pulmonale secondary to chronic hypoxia and rt heart strain with worsening hypoxia requiring high FiO2 still. CT chest shows dense consolidations b/l that were not present on earlier CTA chest. Rpr CXR shows b/l consolidation at bases with no signficant change/worsening 1. Staph PNA. 2. Emphysema 3. Aspergillus PNA 4. Acute on chronic hypoxic resp failure 5. Anemia 6. Hyponatremia- SIADH versus sec to diuretics Pt with low reserve to begin with with acute worsening secondary to PNA and recent PE, off high flow, slight improvement Was not able to expectorate secretions since last night which also appear to thick Pt rpeorts being tired from having to work hard Plan for bronchoscopy for air way clearance and BAL for cultures Procedure was discussed in detail with pt Associated risks and benefits were thoroughly explained Risk of hypoxia and possible intubation was discussed Pt agreeable for procedure Pt consents for intubation if resp status worsens during procedure Abx as per ID Pt reponded well to Voriconazole for fungal PNA with resolution of cavitary lesion C/w O2 supplemetation, titrate as tolerated to maintain 90-92%, still needing 12L still, will increase FiO2 during procedure C/w Lasix at 20 mg daily, lowered dose given hyponatremia c/w bronchodilators and nebs He doesnot qualify per current medicare criteria for Trilogy inspite of severe COPD and recurrent hospitalizations as he doesnot have signficant hypercapnia
[2017-04-18] MEDS ORDERED: Lidocaine 2% JELLY* 6 ML JELLY TOPICAL ONE (08:54)
[2017-04-18] MEDS ORDERED: Lidocaine 2% (CARDIAC)* 20 MG/ML 5 ML SYRINGE (100 MG) ONE (08:54)
[2017-04-18] MEDS ORDERED: Lidocaine 1% INJ* 10 MG/ML 30 ML SDV ONE (08:54)
[2017-04-18] MEDS: Albuterol/Ipratropium NEB.SOL* Albuterol 2.5 MG/Ipratropium 0.5 MG 3 ML INH PRN (09:00)
[2017-04-18] MEDS: traMADol TAB* 50 MG PO SCH ×2 (10:32→15:08)
[2017-04-18] MEDS: Omeprazole CAP* 20 MG PO SCH ×2 (10:33→20:35)
[2017-04-18] MEDS: Cholecalciferol TAB* 1000 UNITS PO SCH (10:33)
[2017-04-18] MEDS: guaiFENesin ER TAB 600 MG PO SCH ×2 (10:33→20:35)
[2017-04-18] MEDS: Montelukast Sodium TAB* 10 MG PO SCH (10:33)
[2017-04-18] MEDS: Aspirin EC Low Dose* 81 MG TAB.EC PO SCH (10:33)
[2017-04-18] MEDS: Furosemide TAB* 20 MG PO SCH (10:33)
[2017-04-18] MEDS: amLODIPine TAB* 5 MG PO SCH (10:33)
[2017-04-18] MEDS: VORICONAZOLE 50 MG PO SCH ×2 (10:33→20:35)
[2017-04-18] MEDS: Senna TAB PO PRN (10:39)
--- NOTE | 2017-04-18 10:51 | PN ---
Subjective Date of Service: 04/18/17 Interval History: Patient seen this morning, underwent bronchoscopy. A bit drowsy from medications but states he feels a bit clearer. Family History: Unchanged from Admission Social History: Unchanged from Admission Past Medical History: Unchanged from Admission Objective Active Medications: Albuterol/Ipratropium (Duoneb (Albuterol 2.5 Mg/Ipratropium 0.5 Mg)) 1 neb INH [id number] AWAKE SHAUNA Albuterol/Ipratropium (Duoneb (Albuterol 2.5 Mg/Ipratropium 0.5 Mg)) 1 neb INH Q4H PRN Amlodipine Besylate (Norvasc Tab*) 10 mg PO DAILY [facility]AUNA Aspirin (Aspirin Ec Low Dose*) 81 mg PO DAILY SHAUNA Atorvastatin Calcium (Lipitor*) 20 mg PO QPM SHAUNA Benzonatate (Tessalon Cap*) 200 mg PO Q8H [facility]AUNA Calcium Carbonate (Tums*) 500 mg PO TID PRN Cholecalciferol (Vitamin D Tab*) 1,000 units PO DAILY [facility]AUNA Codeine Sulfate (Codeine Tab*) 15 mg PO Q4H PRN Cyclobenzaprine HCl (Flexeril Tab*) 10 mg PO TID PRN Docusate Sodium (Colace Cap*) 100 mg PO BID PRN Furosemide (Lasix Tab*) 20 mg PO DAILY [facility]AUNA Guaifenesin (Robitussin*) 10 ml PO Q4H PRN Guaifenesin (Mucinex*) 1,200 mg PO BID SHAUNA Cefazolin Sodium 1 gm/ Sodium (Chloride) 50 mls @ 200 mls/hr IVPB Q8H [facility]AU[facility] Magnesium Hydroxide (Milk Of Magnesia Liq*) 30 ml PO Q6H PRN Mometasone Furoate/Formoterol Fumar (Dulera 200/5 Mdi*) 2 puff INH BID SHAUNA Montelukast Sodium (Singulair Tab*) 10 mg PO DAILY [facility]AUNA Omeprazole (Prilosec Cap*) 20 mg PO BID SHAUNA Oxycodone/Acetaminophen (Percocet 5/325 Tab*) 1 tab PO Q4H PRN Pharmacy Profile Note (Coumadin Daily Reminder*) 0 note FOLLOW UP 1700 [facility] Pharmacy Profile Note (Coumadin Per Pharmacy*) 1 note FOLLOW UP .PER PHARMACY PROTOC [facility] Polyethylene Glycol/Electrolytes (Miralax*) 17 gm PO DAILY PRN Senna (Senokot Tab*) 1 tab PO BEDTIME PRN Sodium Chloride (Sodium Chloride 0.65% Nasal Drops*) 1 drop BOTH NARES Q4H PRN Tiotropium [place] (Spiriva Cap.Inh*) 1 cap INH DAILY [facility]AUNA Tramadol HCl (Ultram*) 50 mg PO TID [facility]AUNA Voriconazole (Vfend (Nf)) 200 mg PO BID SHAUNA Vital Signs 04/17/17 04/17/17 04/17/17 11:00 11:43 12:00 Temperature 99.2 F Pulse Rate 84 Respiratory 13 18 Rate Blood Pressure (mmHg) O2 Sat by Pulse 95 Oximetry 04/18/17 04/18/17 04/18/17 03:00 04:00 07:51 Temperature 97.3 F Pulse Rate 88 Respiratory 17 15 20 Rate Blood Pressure 99/69 (mmHg) O2 Sat by Pulse 93 95 96 Oximetry Oxygen Devices in Use Now: Simple Face Mask - 12L Appearance: Elderly, M, laying in bed in mild respiratory distress Eyes: No Scleral Icterus Ears/Nose/Mouth/Throat: - - Dry MM Neck: NL Appearance and Movements; NL JVP Respiratory: - - Mild tachypnea, no wheezing, diminished BS in bases with rales present Cardiovascular: NL Sounds; No Murmurs; No JVD, RRR Abdominal: NL Sounds; No Tenderness; No Distention Lymphatic: No Cervical Adenopathy Extremities: - - Mild pedal and B/L ankle edema Skin: No Rash or Ulcers Neurological: - - Alert, oriented, no focal deficits Result Diagrams: 04/18/17 05:22 04/18/17 04:51 Additional Lab and Data: Microbiology and Other Data: Microbiology 04/07/17 15:34 Gram Stain - Final Sputum Expectorated Sputum Culture - Preliminary Staphylococcus Aureus Assess/Plan/Problems-Billing Mr Celis is a 71 yo M with a h/o chronic hypoxic respiratory failure secondary to COPD on O2, 3.5L continuously, invasive pulmonary aspergillosis, recent dx for PE and CAD who presented to the ER with c/o progressive SOB, gurgling respirations and hypoxia found to have staph aureus PNA - Patient Problems (1) Acute and chronic respiratory failure with hypoxia Current Visit: Yes Comment: Improved, patient has been weaned from vapotherm and is on 12L with [place] Secondary to pneumonia, invasive aspergillosis, and PE in the setting of COPD CT from 04/14 showed worsening bibabasilar consolidation. Appreciate pulmonology and ID consults. Underwent bronchoscopy with Dr. Israel this morning, will discuss results with her Diuretics (2) Hyponatremia Current Visit: Yes Comment: Improved Continue fluid restriction Urine studies unreliable with Lasix dosing Continue to follow. (3) Pneumonia Current Visit: Yes Comment: Sputum has now grown S. aureus and stenotrophomonas multophilia. Continue cefazolin, per Dr. Means's recommendations. Additonal cultures sent from bronchoscopy (4) Pulmonary embolism Current Visit: Yes Comment: Continue coumadin, dosed by pharmacy (5) Cor pulmonale Current Visit: Yes Comment: Likely due to combination of PNA, PE, COPD, hypoxia (6) Aspergillosis Current Visit: Yes Comment: Continue voriconazole. Follow up with Dr. Means as outpatient. (7) Atrial fibrillation Current Visit: No Comment: Hx of paroxysmal afib Currently in sinus rhythm Continue to monitor Anticoagulated with warfarin (8) HTN (hypertension) Current Visit: No Comment: BPs soft, hold Amlodipine. Continue furosemide. (9) DVT prophylaxis Current Visit: Yes Comment: Coumadin, dose per pharmacy Status and Disposition: Inpatient with expected LOS > 2 days. Anticipate discharge to home when medically stable.
--- NOTE | 2017-04-18 11:30 | RAD ---
Indication: Follow-up pneumonia. Single frontal view of the chest performed at 0730 hours was reviewed. Comparison is made with previous exam dated April 11, 2017. No mediastinal shift is noted. Heart is of normal size and configuration. Bibasilar atelectasis is noted. Early pneumonia in the left base cannot BE excluded. Findings are similar to that seen on April 11, 2017. IMPRESSION: BIBASILAR AIRSPACE DISEASE MAY REPRESENT PNEUMONIA UNCHANGED SINCE APRIL 11, 2017.
[2017-04-18] MEDS: Atorvastatin* 20 MG TAB PO SCH (16:45)
[2017-04-18] MEDS ORDERED: Warfarin TAB(*) 2.5 MG PO ONE (17:00)
[2017-04-19] MEDS: Benzonatate CAP* 100 MG PO SCH ×3 (00:21→17:54)
[2017-04-19] MEDS: oxyCODONE/Acetamin 5/325 MG* TAB PO PRN ×3 (00:25→18:56)
[2017-04-19] MEDS: Albuterol/Ipratropium NEB.SOL* Albuterol 2.5 MG/Ipratropium 0.5 MG 3 ML INH SCH ×4 (01:26→19:52)
--- NOTE | 2017-04-19 02:21 | PRO ---
BRONCHOSCOPY REPORT: DATE OF PROCEDURE: 04/18/17 PROCEDURE PERFORMED: Bronchoscopy and bronchial washings. PREPROCEDURAL DIAGNOSIS: Pneumonia, lower lobe atelectasis bilaterally. POSTPROCEDURAL DIAGNOSIS: Pneumonia, thick secretions and mucus plugs. ANESTHESIA: Conscious sedation, patient received 3 mg of Versed and 25 mcg of fentanyl during the procedure. The patient also received local anesthesia with 1% lidocaine, 2 cc on the vocal cords and nebulization with 5 mL of 1% lidocaine. PROCEDURE IN DETAIL: Informed consent was obtained from the patient prior to the procedure after all the risks and benefits were thoroughly explained. The patient with multiple comorbidities and multiple hospitalizations, recently being treated for bilateral lower lobe pneumonia, presumed to be secondary to staph aureus. Appropriate time-out was performed and was agreed on by attending staff prior to the procedure. Necessary requirements for conscious sedation were completed. The patient was sitting at 45 degrees angle and procedure was performed at bedside. An ambulatory scope was utilized. Left naris was anesthetized with viscous lidocaine and he also received lidocaine nebulization prior to the procedure. Ambu bronchoscope was inserted through the left naris. Vocal cords were examined. Vocal cords were moving normally with inspiration, no lesions were noted. A 2 cc of 1% lidocaine was instilled on the vocal cords. When adequate anesthesia was achieved, bronchoscope was inserted through the vocal cords into the trachea which was then inspected. No lesions were noted in the trachea. Thick secretions were noted to be seeping into the trachea and they were suctioned out. Bronchoscope was then inserted into left bronchial tree which was inspected. Thick secretions and mucus plus were noted , which were suctioned out. Bronchoscope was then advanced into the right bronchial tree which was inspected. No endobronchial lesions were noted. Thick secretions and mucus plugs were noted which were suctioned out. All airways appeared to be patent with no endobronchial lesions. No bleeding occurred during the procedure. The patient was placed on 100% FiO2 prior to the procedure and was then transitioned to his regular FiO2 after the procedure. The patient also received nebulizer treatment at the end of the procedure. Bronchial washings were obtained and were sent into the lab for microbiological, fungal and viral cultures. The patient was seen postprocedure in optimal condition in no distress. His vital signs remained stable throughout the procedure. [id number]/[facility] #: [id number] [facility] CENTERMainor
[2017-04-19] MEDS: ceFAZolin 1 GM VIAL(*) 1 GM in NS 0.9% 50 ML* 50 ML IVPB SCH ×2 (05:15→16:10)
[2017-04-19 06:39] LABS: Hematocrit 28 % (42-52); Hemoglobin 8.9 g/dl (14.0-18.0)
[2017-04-19] MEDS ORDERED: Furosemide IV* 10 MG/ML VIAL (40 MG) IV ONE (07:20)
[2017-04-19] MEDS: Tiotropium CAP.INH* CAP.INH/18 MCG INH SCH (07:37)
[2017-04-19] MEDS: Mometasone/Formoter 200/5 MDI INH SCH ×2 (07:44→20:21)
[2017-04-19] MEDS: Aspirin EC Low Dose* 81 MG TAB.EC PO SCH (08:15)
[2017-04-19] MEDS: Montelukast Sodium TAB* 10 MG PO SCH (08:15)
[2017-04-19] MEDS: VORICONAZOLE 50 MG PO SCH ×2 (08:15→20:53)
[2017-04-19] MEDS: Omeprazole CAP* 20 MG PO SCH ×2 (08:16→20:54)
[2017-04-19] MEDS: Cholecalciferol TAB* 1000 UNITS PO SCH (08:18)
[2017-04-19] MEDS: guaiFENesin ER TAB 600 MG PO SCH ×2 (08:18→20:53)
[2017-04-19] MEDS: Docusate CAP* 100 MG PO PRN (08:28)
--- NOTE | 2017-04-19 08:56 | PN ---
Subjective Date of Service: 04/19/17 Interval History: Patient seen this morning. Says he feels like he is improving. Still with cough , occasionally productive. Feels better after bronchoscopy. Family History: Unchanged from Admission Social History: Unchanged from Admission Past Medical History: Unchanged from Admission Objective Active Medications: Albuterol/Ipratropium (Duoneb (Albuterol 2.5 Mg/Ipratropium 0.5 Mg)) 1 neb INH [id number] AWAKE SHAUNA Albuterol/Ipratropium (Duoneb (Albuterol 2.5 Mg/Ipratropium 0.5 Mg)) 1 neb INH Q4H PRN Aspirin (Aspirin Ec Low Dose*) 81 mg PO DAILY SHAUNA Atorvastatin Calcium (Lipitor*) 20 mg PO QPM SHAUNA Benzonatate (Tessalon Cap*) 200 mg PO Q8H SHAUNA Calcium Carbonate (Tums*) 500 mg PO TID PRN Cholecalciferol (Vitamin D Tab*) 1,000 units PO DAILY SHAUNA Cyclobenzaprine HCl (Flexeril Tab*) 10 mg PO TID PRN Docusate Sodium (Colace Cap*) 100 mg PO BID PRN Guaifenesin (Robitussin*) 10 ml PO Q4H PRN Guaifenesin (Mucinex*) 1,200 mg PO BID SHAUNA Cefazolin Sodium 1 gm/ Sodium (Chloride) 50 mls @ 200 mls/hr IVPB Q8H SHAUNA Magnesium Hydroxide (Milk Of Magnesia Liq*) 30 ml PO Q6H PRN Mometasone Furoate/Formoterol Fumar (Dulera 200/5 Mdi*) 2 puff INH BID SHAUNA Montelukast Sodium (Singulair Tab*) 10 mg PO DAILY SHAUNA Omeprazole (Prilosec Cap*) 20 mg PO BID SHAUNA Oxycodone/Acetaminophen (Percocet 5/325 Tab*) 1 tab PO Q4H PRN Pharmacy Profile Note (Coumadin Daily Reminder*) 0 note FOLLOW UP 1700 [facility] Pharmacy Profile Note (Coumadin Per Pharmacy*) 1 note FOLLOW UP .PER PHARMACY PROTOC SHAUNA Polyethylene Glycol/Electrolytes (Miralax*) 17 gm PO DAILY PRN Senna (Senokot Tab*) 1 tab PO BEDTIME PRN Sodium Chloride (Sodium Chloride 0.65% Nasal Drops*) 1 drop BOTH NARES Q4H PRN Tiotropium [place] (Spiriva Cap.Inh*) 1 cap INH DAILY SHAUNA Voriconazole (Vfend (Nf)) 200 mg PO BID SHAUNA Warfarin Sodium (Coumadin Tab(*)) 2.5 mg PO ONCE@1700 ONE Vital Signs 04/18/17 04/18/17 04/18/17 08:56 09:00 09:05 Temperature Pulse Rate 101 95 94 Respiratory 22 19 19 Rate Blood Pressure 162/69 126/65 116/70 (mmHg) O2 Sat by Pulse 96 97 97 Oximetry 04/18/17 04/18/17 04/18/17 14:30 14:35 14:40 Temperature Pulse Rate 82 77 86 Respiratory 17 15 24 Rate Blood Pressure 109/60 103/62 112/66 (mmHg) O2 Sat by Pulse 96 95 84 Oximetry 04/19/17 04/19/17 04/19/17 04:41 07:25 07:53 Temperature 97.4 F 97.4 F Pulse Rate 88 89 91 Respiratory 16 14 18 Rate Blood Pressure 122/54 109/54 (mmHg) O2 Sat by Pulse 90 94 94 Oximetry Oxygen Devices in Use Now: Nasal Cannula - 6L Appearance: Elderly, M, sitting in NAD Eyes: No Scleral Icterus Ears/Nose/Mouth/Throat: Mucous Membranes Moist Neck: NL Appearance and Movements; NL JVP Respiratory: Symmetrical Chest Expansion and Respiratory Effort, - - Diminished BS in bases but slightly improved, mild L basilar rales Cardiovascular: NL Sounds; No Murmurs; No JVD, RRR Abdominal: NL Sounds; No Tenderness; No Distention Lymphatic: No Cervical Adenopathy Extremities: - - B/L LE pitting edema to mid-shins Skin: No Rash or Ulcers Neurological: Alert and Oriented x 3 Result Diagrams: 04/19/17 06:10 04/18/17 04:51 Additional Lab and Data: Assess/Plan/Problems-Billing Mr Celis is a 71 yo M with a h/o chronic hypoxic respiratory failure secondary to COPD on O2, 3.5L continuously, invasive pulmonary aspergillosis, recent dx for PE and CAD who presented to the ER with c/o progressive SOB, gurgling respirations and hypoxia found to have staph aureus PNA - Patient Problems (1) Acute and chronic respiratory failure with hypoxia Current Visit: Yes Comment: Improved, patient has been weaned from vapotherm and is currently on 6L NC. Secondary to pneumonia, invasive aspergillosis, and PE in the setting of COPD CT from 04/14 showed worsening bibabasilar consolidation. Appreciate pulmonology and ID consults. S/P bronchoscopy with suction of significant amounts of mucous on 04/18 IV Lasix 40 mg x 1 today (2) Hyponatremia Current Visit: Yes Comment: BMP 04/20 Continue fluid restriction (3) Pneumonia Current Visit: Yes Comment: Sputum has now grown S. aureus and stenotrophomonas multophilia. Continue cefazolin, per Dr. Means's recommendations, will check procalcitonin in AM, review ABx with Dr. Means, this is Day 12 Additonal cultures sent from bronchoscopy (4) Pulmonary embolism Current Visit: Yes Comment: Continue coumadin, dosed by pharmacy (5) Cor pulmonale Current Visit: Yes Comment: Likely due to combination of PNA, PE, COPD, hypoxia (6) Aspergillosis Current Visit: Yes Comment: Continue voriconazole. Follow up with Dr. Means as outpatient. (7) Atrial fibrillation Current Visit: No Comment: Hx of paroxysmal afib Currently in sinus rhythm Continue to monitor Anticoagulated with warfarin (8) HTN (hypertension) Current Visit: No Comment: BPs OK, continue to hold Amlodipine. Continue furosemide. (9) DVT prophylaxis Current Visit: Yes Comment: Coumadin, dose per pharmacy Status and Disposition: Inpatient with expected LOS > 2 days. Anticipate discharge to home when medically stable.
--- NOTE | 2017-04-19 10:43 | RAD ---
Indication: Right basilar pneumonia status post bronchoscopy. Single frontal view of the chest performed at 0635 hours was reviewed. Comparison is made with previous exam dated April 18, 2017. No mediastinal shift is noted. Heart is of normal size and configuration. Bibasilar airspace disease is noted. No pneumothorax is noted. IMPRESSION: BIBASILAR AIRSPACE DISEASE UNCHANGED FROM APRIL 18, 2017.
[2017-04-19] MEDS ORDERED: Warfarin TAB(*) 2.5 MG PO ONE (17:00)
[2017-04-19] MEDS: Atorvastatin* 20 MG TAB PO SCH (18:57)
[2017-04-19] MEDS: Acetylcysteine INHALATION SOL* 200 MG/ML NEB.SOLN 10 ML INH SCH (19:53)
[2017-04-20] MEDS: ceFAZolin 1 GM VIAL(*) 1 GM in NS 0.9% 50 ML* 50 ML IVPB SCH ×2 (00:18→07:51)
[2017-04-20] MEDS: Benzonatate CAP* 100 MG PO SCH ×3 (00:22→16:48)
[2017-04-20] MEDS: Acetylcysteine INHALATION SOL* 200 MG/ML NEB.SOLN 10 ML INH SCH ×4 (01:35→19:42)
[2017-04-20] MEDS: Albuterol/Ipratropium NEB.SOL* Albuterol 2.5 MG/Ipratropium 0.5 MG 3 ML INH SCH ×4 (01:35→19:42)
[2017-04-20 07:33] LABS: BUN/Creatinine Ratio 35.7 (8-20); Calcium 8.9 mg/dL (8.6-10.3); EGFR African American 185.5 (>60); EGFR Non-African American 144.2 (>60); Potassium 4.2 mmol/L (3.5-5.0)
[2017-04-20] MEDS: oxyCODONE/Acetamin 5/325 MG* TAB PO PRN ×3 (07:48→19:34)
[2017-04-20] MEDS: Montelukast Sodium TAB* 10 MG PO SCH (07:48)
[2017-04-20] MEDS: Aspirin EC Low Dose* 81 MG TAB.EC PO SCH (07:49)
[2017-04-20] MEDS: Cholecalciferol TAB* 1000 UNITS PO SCH (07:49)
[2017-04-20] MEDS: Omeprazole CAP* 20 MG PO SCH ×2 (07:49→22:09)
[2017-04-20] MEDS: guaiFENesin ER TAB 600 MG PO SCH ×2 (07:49→22:11)
[2017-04-20] MEDS: Mometasone/Formoter 200/5 MDI INH SCH ×2 (07:53→19:44)
[2017-04-20] MEDS: Tiotropium CAP.INH* CAP.INH/18 MCG INH SCH (07:54)
[2017-04-20] MEDS: Docusate CAP* 100 MG PO PRN ×2 (09:16→16:48)
[2017-04-20] MEDS: Polyethylene Glycol 3350* 17 GM PACKET PO PRN (09:17)
[2017-04-20] MEDS: VORICONAZOLE 50 MG PO SCH ×2 (09:17→22:10)
[2017-04-20] MEDS ORDERED: Furosemide IV* 10 MG/ML VIAL (40 MG) IV ONE (10:25)
--- NOTE | 2017-04-20 10:34 | PN ---
Subjective Date of Service: 04/20/17 Interval History: Patient seen this morning. Says he's "coming along". Continues to feel chest congestion, some difficulty expectorating sputum. No fever or chills. Says he has been ambulating, feeling steadier on his feet. Family History: Unchanged from Admission Social History: Unchanged from Admission Past Medical History: Unchanged from Admission Objective Active Medications: Acetylcysteine (Mucomyst Inhalation Mariella*) 400 mg INH [id number] AWAKE SHAUNA Albuterol/Ipratropium (Duoneb (Albuterol 2.5 Mg/Ipratropium 0.5 Mg)) 1 neb INH [id number] AWAKE SHAUNA Albuterol/Ipratropium (Duoneb (Albuterol 2.5 Mg/Ipratropium 0.5 Mg)) 1 neb INH Q4H PRN Aspirin (Aspirin Ec Low Dose*) 81 mg PO DAILY SHAUNA Atorvastatin Calcium (Lipitor*) 20 mg PO QPM SHAUNA Benzonatate (Tessalon Cap*) 200 mg PO Q8H SHAUNA Calcium Carbonate (Tums*) 500 mg PO TID PRN Cholecalciferol (Vitamin D Tab*) 1,000 units PO DAILY SHAUNA Cyclobenzaprine HCl (Flexeril Tab*) 10 mg PO TID PRN Docusate Sodium (Colace Cap*) 100 mg PO BID PRN Guaifenesin (Robitussin*) 10 ml PO Q4H PRN Guaifenesin (Mucinex*) 1,200 mg PO BID SHAUNA Cefazolin Sodium 1 gm/ Sodium (Chloride) 50 mls @ 200 mls/hr IVPB Q8H SHAUNA Magnesium Hydroxide (Milk Of Magnesia Liq*) 30 ml PO Q6H PRN Mometasone Furoate/Formoterol Fumar (Dulera 200/5 Mdi*) 2 puff INH BID SHAUNA Montelukast Sodium (Singulair Tab*) 10 mg PO DAILY SHAUNA Omeprazole (Prilosec Cap*) 20 mg PO BID SHAUNA Oxycodone/Acetaminophen (Percocet 5/325 Tab*) 1 tab PO Q4H PRN Pharmacy Profile Note (Coumadin Daily Reminder*) 0 note FOLLOW UP 1700 [facility] Pharmacy Profile Note (Coumadin Per Pharmacy*) 1 note FOLLOW UP .PER PHARMACY PROTOC SHAUNA Polyethylene Glycol/Electrolytes (Miralax*) 17 gm PO DAILY PRN Senna (Senokot Tab*) 1 tab PO BEDTIME PRN Sodium Chloride (Sodium Chloride 0.65% Nasal Drops*) 1 drop BOTH NARES Q4H PRN Tiotropium [place] (Spiriva Cap.Inh*) 1 cap INH DAILY SHAUNA Voriconazole (Vfend (Nf)) 200 mg PO BID SHAUNA Vital Signs 04/19/17 04/19/17 04/19/17 11:35 11:42 13:41 Temperature 97.9 F Pulse Rate 88 91 Respiratory 18 16 16 Rate Blood Pressure 138/51 (mmHg) O2 Sat by Pulse 88 90 Oximetry 04/20/17 04/20/17 04/20/17 04:20 07:24 07:48 Temperature 97.7 F 97.6 F Pulse Rate 84 84 Respiratory 16 18 20 Rate Blood Pressure 122/50 124/55 (mmHg) O2 Sat by Pulse 97 93 Oximetry Oxygen Devices in Use Now: Nasal Cannula - 6L Appearance: Elderly, M, sitting in chair in NAD Eyes: No Scleral Icterus Ears/Nose/Mouth/Throat: Mucous Membranes Moist Neck: NL Appearance and Movements; NL JVP Respiratory: Symmetrical Chest Expansion and Respiratory Effort, - - Mild rales and diminished BS in bases Cardiovascular: NL Sounds; No Murmurs; No JVD, RRR Abdominal: NL Sounds; No Tenderness; No Distention Lymphatic: No Cervical Adenopathy Extremities: - - B/L ankle edema Skin: No Rash or Ulcers Neurological: Alert and Oriented x 3 Result Diagrams: 04/19/17 06:10 04/20/17 06:54 Additional Lab and Data: Microbiology and Other Data: Microbiology 04/07/17 15:34 Gram Stain - Final Sputum Expectorated Sputum Culture - Preliminary Staphylococcus Aureus Assess/Plan/Problems-Billing Mr Celis is a 71 yo M with a h/o chronic hypoxic respiratory failure secondary to COPD on O2, 3.5L continuously, invasive pulmonary aspergillosis, recent dx for PE and CAD who presented to the ER with c/o progressive SOB, gurgling respirations and hypoxia found to have staph aureus PNA - Patient Problems (1) Acute and chronic respiratory failure with hypoxia Current Visit: Yes Comment: Improved, patient has been weaned from vapotherm and is currently on 6L NC. Secondary to pneumonia, invasive aspergillosis, and PE in the setting of COPD Appreciate pulmonology and ID consults. S/P bronchoscopy with suction of significant amounts of mucous on 04/18 Redose with IV Lasix again today (2) Hyponatremia Current Visit: Yes Comment: Stable BMP 04/20 Continue fluid restriction (3) Pneumonia Current Visit: Yes Comment: Sputum has now grown S. aureus and stenotrophomonas multophilia. Will change to PO Keflex, Dr. Means recommends additional 2 weeks of ABx ( thru 05/04) Additonal cultures sent from bronchoscopy (4) Pulmonary embolism Current Visit: Yes Comment: Continue coumadin, dosed by pharmacy (5) Cor pulmonale Current Visit: Yes Comment: Likely due to combination of PNA, PE, COPD, hypoxia (6) Aspergillosis Current Visit: Yes Comment: Continue voriconazole. Follow up with Dr. Means as outpatient. (7) Atrial fibrillation Current Visit: No Comment: Hx of paroxysmal afib Currently in sinus rhythm Continue to monitor Anticoagulated with warfarin (8) HTN (hypertension) Current Visit: No Comment: BPs OK, continue to hold Amlodipine. Continue furosemide. (9) DVT prophylaxis Current Visit: Yes Comment: Coumadin, dose per pharmacy Status and Disposition: Anticipate discharge to home when medically stable and O2 weaned down
[2017-04-20] MEDS: Cephalexin CAP* 500 MG PO SCH ×3 (12:44→22:10)
[2017-04-20] MEDS: Atorvastatin* 20 MG TAB PO SCH (16:48)
[2017-04-20] MEDS: Warfarin TAB(*) 2.5 MG PO SCH (16:48)
[2017-04-20] MEDS: Magnesium Hydroxide LIQ* 30 ML UDC PO PRN (16:49)
--- NOTE | 2017-04-20 17:00 | PN ---
Progress Note - Progress Note Date of Service: 04/20/17 - Pulm consult f/u note Note: Pt seen and examined at bedside this afternoon. Pt reports improvement in breathing. he was able to participate in PT. Still continues to have cough however is much improved after bronchoscopy. Is using flutter valve. Active Medications Generic Name Dose Route Start Last Admin Trade Name Freq PRN Reason Stop Dose Admin Acetylcysteine 400 mg 04/19/17 19:00 04/20/17 13:17 Mucomyst Inhalation Mariella* INH 400 mg [id number] AWAKE SHAUNA Administration Albuterol/Ipratropium 1 neb 04/10/17 19:00 04/20/17 13:15 Duoneb (Albuterol 2.5 Mg/Ipratropium 0.5 Mg) INH 1 neb [id number] AWAKE SHAUNA Administration Albuterol/Ipratropium 1 neb 04/13/17 03:33 04/18/17 09:00 Duoneb (Albuterol 2.5 Mg/Ipratropium 0.5 Mg) INH 1 neb Q4H PRN Administration SOB/WHEEZING Aspirin 81 mg 04/07/17 09:00 04/20/17 07:49 Aspirin Ec Low Dose* PO 81 mg DAILY SHAUNA Administration Atorvastatin Calcium 20 mg 04/07/17 18:00 04/20/17 16:48 Lipitor* PO 20 mg QPM SHAUNA Administration Benzonatate 200 mg 04/12/17 01:00 04/20/17 16:48 Tessalon Cap* PO 200 mg Q8H SHAUNA Administration Calcium Carbonate 500 mg 04/13/17 17:25 Tums* PO TID PRN DYSPEPSIA Cephalexin HCl 500 mg 04/20/17 13:00 04/20/17 16:48 Keflex Cap* PO 500 mg QID SHAUNA Administration Cholecalciferol 1,000 units 04/07/17 09:00 04/20/17 07:49 Vitamin D Tab* PO 1,000 units DAILY SHAUNA Administration Cyclobenzaprine HCl 10 mg 04/07/17 08:59 04/11/17 08:05 Flexeril Tab* PO 10 mg TID PRN Administration PAIN Docusate Sodium 100 mg 04/09/17 15:35 04/20/17 16:48 Colace Cap* PO 100 mg BID PRN Administration CONSTIPATION Guaifenesin 10 ml 04/10/17 12:32 04/15/17 01:31 Robitussin* PO 10 ml Q4H PRN Administration COUGH Guaifenesin 1,200 mg 04/15/17 09:00 04/20/17 07:49 Mucinex* PO 1,200 mg BID SHAUNA Administration Magnesium Hydroxide 30 ml 04/09/17 15:35 04/20/17 16:49 Milk Of Magnesia Liq* PO 30 ml Q6H PRN Administration CONSTIPATION Mometasone Furoate/Formoterol Fumar 2 puff 04/07/17 09:00 04/20/17 07:53 Dulera 200/5 Mdi* INH 2 puff BID SHAUNA Administration Protocol Montelukast Sodium 10 mg 04/07/17 09:00 04/20/17 07:48 Singulair Tab* PO 10 mg DAILY SHAUNA Administration Omeprazole 20 mg 04/07/17 09:00 04/20/17 07:49 Prilosec Cap* PO 20 mg BID SHAUNA Administration Oxycodone/Acetaminophen 1 tab 04/07/17 08:59 04/20/17 14:15 Percocet 5/325 Tab* PO 1 tab Q4H PRN Administration Pain Pharmacy Profile Note 0 note 04/07/17 17:00 04/20/17 16:50 Coumadin Daily Reminder* FOLLOW UP 1 note 1700 [facility] Administration Pharmacy Profile Note 1 note 04/17/17 18:00 Coumadin Per Pharmacy* FOLLOW UP .PER PHARMACY PROTOC [facility] Protocol Polyethylene Glycol/Electrolytes 17 gm 04/09/17 15:35 04/20/17 09:17 Miralax* PO 17 gm DAILY PRN Administration CONSTIPATION Senna 1 tab 04/09/17 15:35 04/18/17 10:39 Senokot Tab* PO 1 tab BEDTIME PRN Administration CONSTIPATION Sodium Chloride 1 drop 04/11/17 11:33 04/18/17 07:02 Sodium Chloride 0.65% Nasal Drops* BOTH NARES 1 drop Q4H PRN Administration nasal congestion Tiotropium [place] 1 cap 04/07/17 09:00 04/20/17 07:54 Spiriva Cap.Inh* INH 1 cap DAILY SHAUNA Administration Voriconazole 200 mg 04/07/17 21:00 04/20/17 09:17 Vfend (Nf) PO 200 mg BID SHAUNA Administration Protocol Warfarin Sodium 2.5 mg 04/20/17 17:00 04/20/17 16:48 Coumadin Tab(*) PO 04/21/17 23:00 2.5 mg 1700 SHAUNA Administration Vital Signs Temp Pulse Resp BP Pulse Ox 98.1 F 90 20 115/46 89 04/20/17 15:15 04/20/17 15:15 04/20/17 16:15 04/20/17 15:15 04/20/17 15:15 Gen: Pt sitting in chair in NAD, alert, awake, no distress, able to talk full sentences HEENT: PERRLA, No accessory muscle usage Lungs: Diminished a/e at bases, No wheeze, crackles at bases CVS; S1, S2+, no new murmers Abd: Soft, BS+ Skin: Multiple bruises present from blood draws and IVs Neuro: No focal defecits Ext: Normal ROM, no fractures, no cyanosis Laboratory Results - last 24 hr 04/18/17 04/18/17 04/18/17 04:51 05:22 05:22 Hgb 8.7 L Hct 28 L INR (Anticoag Therapy) 2.32 H Sodium 132 L Potassium 4.4 Chloride 94 L Carbon Dioxide 31 Anion Gap 7 BUN 20 Creatinine 0.55 L Est GFR ( Amer) 189.4 Est GFR (Non-Af Amer) 147.3 BUN/Creatinine Ratio 36.4 H Glucose 114 H Calcium 8.5 L CXR 04/18/17: Patchy air space opacities at bases b/l, slightly improved aeration ECHO: Interval worsening of RV function with increased wall thickness and pressure overload, diastolic dysfunction and normal EF CT chest- dense consolidations b/l, signifciant emphysema, resolution of previously noted cavitary opacity I/R: 71 y o m with severe emphysema, Apergillus PNA, hypoxia, anemia, GI bleed with worsening SOB, hypoxia, clinical picture consistent with cor pulmonale secondary to chronic hypoxia being treated for pneumonia 1. Staph PNA, improving clinically 2. Emphysema 3. Aspergillus PNA 4. Acute on chronic hypoxic resp failure, improving 5. Anemia 6. Hyponatremia- SIADH versus sec to diuretics Pt with low reserve to begin with & with acute worsening secondary to PNA and recent PE, off high flow, down to 5L S/p bronchoscopy for air way clearance, cultures pending Abx as per ID Pt reponded well to Voriconazole for fungal PNA with resolution of cavitary lesion C/w O2 supplemetation, titrate as tolerated to maintain 90-92% C/w Lasix c/w bronchodilators and nebs He doesnot qualify per current medicare criteria for Trilogy inspite of severe COPD and recurrent hospitalizations as he doesnot have signficant hypercapnia
[2017-04-21] MEDS: Magnesium Hydroxide LIQ* 30 ML UDC PO PRN ×3 (00:57→13:30)
[2017-04-21] MEDS: Senna TAB PO PRN (00:57)
[2017-04-21] MEDS: Benzonatate CAP* 100 MG PO SCH ×3 (00:57→16:05)
[2017-04-21] MEDS: Acetylcysteine INHALATION SOL* 200 MG/ML NEB.SOLN 10 ML INH SCH ×4 (01:10→19:37)
[2017-04-21] MEDS: Albuterol/Ipratropium NEB.SOL* Albuterol 2.5 MG/Ipratropium 0.5 MG 3 ML INH SCH ×4 (01:10→19:36)
[2017-04-21] MEDS: Mometasone/Formoter 200/5 MDI INH SCH ×2 (07:20→19:36)
[2017-04-21] MEDS: oxyCODONE/Acetamin 5/325 MG* TAB PO PRN ×2 (07:20→17:27)
[2017-04-21] MEDS: Tiotropium CAP.INH* CAP.INH/18 MCG INH SCH (07:20)
[2017-04-21] MEDS: Cephalexin CAP* 500 MG PO SCH ×4 (07:20→20:55)
[2017-04-21] MEDS: Cholecalciferol TAB* 1000 UNITS PO SCH (07:21)
[2017-04-21] MEDS: guaiFENesin ER TAB 600 MG PO SCH ×2 (07:21→20:56)
[2017-04-21] MEDS: Aspirin EC Low Dose* 81 MG TAB.EC PO SCH (07:21)
[2017-04-21] MEDS: Montelukast Sodium TAB* 10 MG PO SCH (07:21)
[2017-04-21] MEDS: Omeprazole CAP* 20 MG PO SCH ×2 (07:22→20:55)
[2017-04-21 07:51] LABS: BUN/Creatinine Ratio 44.8 (8-20); Calcium 8.9 mg/dL (8.6-10.3); EGFR African American 178.1 (>60); EGFR Non-African American 138.5 (>60); Potassium 3.9 mmol/L (3.5-5.0)
[2017-04-21] MEDS ORDERED: Furosemide IV* 10 MG/ML VIAL (40 MG) IV ONE (10:12)
[2017-04-21] MEDS: VORICONAZOLE 50 MG PO SCH ×2 (10:29→20:54)
[2017-04-21] MEDS: Polyethylene Glycol 3350* 17 GM PACKET PO PRN (12:21)
--- NOTE | 2017-04-21 14:15 | PN ---
Subjective Date of Service: 04/21/17 Interval History: HOSPITALIST PROGRESS NOTE Patient seen and examined at bedside. He feels his breathing is quite improved, but not yet at baseline. Supplemental O2 down to 5 liters, but was wearing 2 liters at home prior to admission. feels he's very weak and would not be able to manage at home, interested in rehab at [facility]. Family History: Unchanged from Admission Social History: Unchanged from Admission Past Medical History: Unchanged from Admission Objective Active Medications: Acetylcysteine (Mucomyst Inhalation Mariella*) 400 mg INH [id number] AWAKE PENDING SALE TO [facility] Last Admin: 04/21/17 07:18 Dose: 400 mg Albuterol/Ipratropium (Duoneb (Albuterol 2.5 Mg/Ipratropium 0.5 Mg)) 1 neb INH [id number] AWAKE PENDING SALE TO [facility] Last Admin: 04/21/17 07:18 Dose: 1 neb Albuterol/Ipratropium (Duoneb (Albuterol 2.5 Mg/Ipratropium 0.5 Mg)) 1 neb INH Q4H PRN PRN Reason: SOB/WHEEZING Last Admin: 04/18/17 09:00 Dose: 1 neb Aspirin (Aspirin Ec Low Dose*) 81 mg PO DAILY [facility] Last Admin: 04/21/17 07:21 Dose: 81 mg Atorvastatin Calcium (Lipitor*) 20 mg PO QPM [facility] Last Admin: 04/20/17 16:48 Dose: 20 mg Benzonatate (Tessalon Cap*) 200 mg PO Q8H [facility] Last Admin: 04/21/17 07:20 Dose: 200 mg Calcium Carbonate (Tums*) 500 mg PO TID PRN PRN Reason: DYSPEPSIA Cephalexin HCl (Keflex Cap*) 500 mg PO QID [facility] Last Admin: 04/21/17 12:21 Dose: 500 mg Cholecalciferol (Vitamin D Tab*) 1,000 units PO DAILY [facility] Last Admin: 04/21/17 07:21 Dose: 1,000 units Cyclobenzaprine HCl (Flexeril Tab*) 10 mg PO TID PRN PRN Reason: PAIN Last Admin: 04/11/17 08:05 Dose: 10 mg Docusate Sodium (Colace Cap*) 100 mg PO BID PRN PRN Reason: CONSTIPATION Last Admin: 04/20/17 16:48 Dose: 100 mg Guaifenesin (Robitussin*) 10 ml PO Q4H PRN PRN Reason: COUGH Last Admin: 04/15/17 01:31 Dose: 10 ml Guaifenesin (Mucinex*) 1,200 mg PO BID [facility] Last Admin: 04/21/17 07:21 Dose: 1,200 mg Magnesium Hydroxide (Milk Of Magnesia Liq*) 30 ml PO Q6H PRN PRN Reason: CONSTIPATION Last Admin: 04/21/17 13:30 Dose: 30 ml Mometasone Furoate/Formoterol Fumar (Dulera 200/5 Mdi*) 2 puff INH BID [facility] PRN Reason: Protocol Last Admin: 04/21/17 07:20 Dose: 2 puff Montelukast Sodium (Singulair Tab*) 10 mg PO DAILY [facility] Last Admin: 04/21/17 07:21 Dose: 10 mg Omeprazole (Prilosec Cap*) 20 mg PO BID [facility] Last Admin: 04/21/17 07:22 Dose: 20 mg Oxycodone/Acetaminophen (Percocet 5/325 Tab*) 1 tab PO Q4H PRN PRN Reason: Pain Last Admin: 04/21/17 07:20 Dose: 1 tab Pharmacy Profile Note (Coumadin Daily Reminder*) 0 note FOLLOW UP 1700 [facility] Last Admin: 04/20/17 16:50 Dose: 1 note Pharmacy Profile Note (Coumadin Per Pharmacy*) 1 note FOLLOW UP .PER PHARMACY PROTOC [facility] PRN Reason: Protocol Polyethylene Glycol/Electrolytes (Miralax*) 17 gm PO DAILY PRN PRN Reason: CONSTIPATION Last Admin: 04/21/17 12:21 Dose: 17 gm Senna (Senokot Tab*) 1 tab PO BEDTIME PRN PRN Reason: CONSTIPATION Last Admin: 04/21/17 00:57 Dose: 1 tab Sodium Chloride (Sodium Chloride 0.65% Nasal Drops*) 1 drop BOTH NARES Q4H PRN PRN Reason: nasal congestion Last Admin: 04/18/17 07:02 Dose: 1 drop Tiotropium [place] (Spiriva Cap.Inh*) 1 cap INH DAILY [facility] Last Admin: 04/21/17 07:20 Dose: 1 cap Voriconazole (Vfend (Nf)) 200 mg PO BID [facility] PRN Reason: Protocol Last Admin: 04/21/17 10:29 Dose: 200 mg Warfarin Sodium (Coumadin Tab(*)) 2.5 mg PO 1700 SHAUNA Stop: 04/21/17 23:00 Last Admin: 04/20/17 16:48 Dose: 2.5 mg Vital Signs 04/21/17 04/21/17 09:20 11:03 Temperature 97.4 F Pulse Rate 82 Respiratory 22 20 Rate Blood Pressure 133/61 (mmHg) O2 Sat by Pulse 91 Oximetry Oxygen Devices in Use Now: Nasal Cannula - 5L Appearance: Elderly male sitting on a recliner in NAD. Eyes: No Scleral Icterus Ears/Nose/Mouth/Throat: Mucous Membranes Moist Neck: Trachea Midline Respiratory: Symmetrical Chest Expansion and Respiratory Effort, - - BS+ bilaterally coarse with bibasilar crackles, no rhonchi or wheezes Cardiovascular: RRR - Normal S1 and S2 Abdominal: NL Sounds; No Tenderness; No Distention Extremities: - - Bilateral LE moderate pitting edema Neurological: Alert and Oriented x 3, NL Muscle Strength and Tone Nutrition: Taking PO's Result Diagrams: 04/19/17 06:10 04/21/17 04:06 Assess/Plan/Problems-Billing Mr Celis is a 71 yo M with a h/o chronic hypoxic respiratory failure secondary to COPD on O2, 3.5L continuously, invasive pulmonary aspergillosis, recent dx of PE and CAD who presented to the ER with c/o progressive SOB, gurgling respirations and hypoxia found to have staph aureus PNA. - Patient Problems (1) Acute and chronic respiratory failure with hypoxia Comment: - Improving. - Patient has been weaned from vapotherm and is currently on 5L NC, but does not feel back to his respiratory baseline. - Secondary to pneumonia, invasive aspergillosis, and PE in the setting of COPD - Appreciate pulmonology and ID consults. - S/P bronchoscopy with suction of significant amounts of mucous on 04/18. (2) Acute diastolic CHF (congestive heart failure) Comment: - Echo showed EF 60-65%, no wall motion abnormalities. - Has LE edema and bibasilar crackles. - Will give another dose of Furosemide IV and monitor. (3) Hyponatremia Comment: - Resolved. (4) Pneumonia Comment: - Sputum grew S. aureus and stenotrophomonas multophilia. - Dr. Means recommended additional 2 weeks of cephalexin (until 05/04) - Additonal cultures sent from bronchoscopy - no growth so far. (5) Pulmonary embolism Comment: - INR 2.1. - Continue Warfarin as per pharmacy. (6) Cor pulmonale Comment: - Likely due to combination of PNA, PE, COPD, hypoxia. (7) Aspergillosis Comment: - Continue voriconazole. - Follow up with Dr. Means as outpatient. (8) Atrial fibrillation Comment: - Hx of paroxysmal afib. - Currently in sinus rhythm. - Anticoagulated with warfarin. (9) HTN (hypertension) Comment: - BP has been controlled off Amlodipine. (10) DVT prophylaxis Comment: - Warfarin dose per pharmacy. (11) Full code status Status and Disposition: Patient/ feel he's too weak. Will request PT/OT re-evaluation.
[2017-04-21] MEDS ORDERED: Sodium Phosphate ADULT ENEMA* 118 ml bottle PR PRN (14:39)
[2017-04-21] MEDS: Warfarin TAB(*) 2.5 MG PO SCH (16:05)
[2017-04-21] MEDS: Atorvastatin* 20 MG TAB PO SCH (16:05)
--- NOTE | 2017-04-21 17:27 | PN ---
Progress Note - Progress Note Date of Service: 04/21/17 - Pulm f/u Note: Pt seen and examined at bedside. In good spirits, feels metanebs are helping to bring phleghm out. Participating in PT. Active Medications Generic Name Dose Route Start Last Admin Trade Name Freq PRN Reason Stop Dose Admin Acetylcysteine 400 mg 04/19/17 19:00 04/21/17 14:28 Mucomyst Inhalation Mariella* INH 400 mg [id number] AWAKE SHAUNA Administration Albuterol/Ipratropium 1 neb 04/10/17 19:00 04/21/17 14:29 Duoneb (Albuterol 2.5 Mg/Ipratropium 0.5 Mg) INH 1 neb [id number] AWAKE SHAUNA Administration Albuterol/Ipratropium 1 neb 04/13/17 03:33 04/18/17 09:00 Duoneb (Albuterol 2.5 Mg/Ipratropium 0.5 Mg) INH 1 neb Q4H PRN Administration SOB/WHEEZING Aspirin 81 mg 04/07/17 09:00 04/21/17 07:21 Aspirin Ec Low Dose* PO 81 mg DAILY SHAUNA Administration Atorvastatin Calcium 20 mg 04/07/17 18:00 04/21/17 16:05 Lipitor* PO 20 mg QPM SHAUNA Administration Benzonatate 200 mg 04/12/17 01:00 04/21/17 16:05 Tessalon Cap* PO 200 mg Q8H SHAUNA Administration Calcium Carbonate 500 mg 04/13/17 17:25 Tums* PO TID PRN DYSPEPSIA Cephalexin HCl 500 mg 04/20/17 13:00 04/21/17 16:05 Keflex Cap* PO 500 mg QID SHAUNA Administration Cholecalciferol 1,000 units 04/07/17 09:00 04/21/17 07:21 Vitamin D Tab* PO 1,000 units DAILY SHAUNA Administration Cyclobenzaprine HCl 10 mg 04/07/17 08:59 04/11/17 08:05 Flexeril Tab* PO 10 mg TID PRN Administration PAIN Docusate Sodium 100 mg 04/09/17 15:35 04/20/17 16:48 Colace Cap* PO 100 mg BID PRN Administration CONSTIPATION Guaifenesin 10 ml 04/10/17 12:32 04/15/17 01:31 Robitussin* PO 10 ml Q4H PRN Administration COUGH Guaifenesin 1,200 mg 04/15/17 09:00 04/21/17 07:21 Mucinex* PO 1,200 mg BID SHAUNA Administration Magnesium Hydroxide 30 ml 04/09/17 15:35 04/21/17 13:30 Milk Of Magnesia Liq* PO 30 ml Q6H PRN Administration CONSTIPATION Mometasone Furoate/Formoterol Fumar 2 puff 04/07/17 09:00 04/21/17 07:20 Dulera 200/5 Mdi* INH 2 puff BID SHAUNA Administration Protocol Montelukast Sodium 10 mg 04/07/17 09:00 04/21/17 07:21 Singulair Tab* PO 10 mg DAILY SHAUNA Administration Omeprazole 20 mg 04/07/17 09:00 04/21/17 07:22 Prilosec Cap* PO 20 mg BID SHAUNA Administration Oxycodone/Acetaminophen 1 tab 04/07/17 08:59 04/21/17 07:20 Percocet 5/325 Tab* PO 1 tab Q4H PRN Administration Pain Pharmacy Profile Note 0 note 04/07/17 17:00 04/21/17 16:05 Coumadin Daily Reminder* FOLLOW UP 2.5 note 1700 SHAUNA Administration Pharmacy Profile Note 1 note 04/17/17 18:00 Coumadin Per Pharmacy* FOLLOW UP .PER PHARMACY [facility] Protocol Polyethylene Glycol/Electrolytes 17 gm 04/09/17 15:35 04/21/17 12:21 Miralax* PO 17 gm DAILY PRN Administration CONSTIPATION Senna 1 tab 04/09/17 15:35 04/21/17 00:57 Senokot Tab* PO 1 tab BEDTIME PRN Administration CONSTIPATION Sodium Biphosphate/Sodium Phosphate 1 bottle 04/21/17 14:39 04/21/17 16:06 Fleet Enema* OR 1 bottle DAILY PRN Administration CONSTIPATION Sodium Chloride 1 drop 04/11/17 11:33 04/18/17 07:02 Sodium Chloride 0.65% Nasal Drops* BOTH NARES 1 drop Q4H PRN Administration nasal congestion Tiotropium [place] 1 cap 04/07/17 09:00 04/21/17 07:20 Spiriva Cap.Inh* INH 1 cap DAILY SHAUNA Administration Voriconazole 200 mg 04/07/17 21:00 04/21/17 10:29 Vfend (Nf) PO 200 mg BID SHAUNA Administration Protocol Warfarin Sodium 2.5 mg 04/20/17 17:00 04/21/17 16:05 Coumadin Tab(*) PO 04/21/17 23:00 2.5 mg 1700 SHAUNA Administration Vital Signs Temp Pulse Resp BP Pulse Ox 97.4 F 83 16 126/59 92 04/21/17 15:56 04/21/17 15:56 04/21/17 15:56 04/21/17 15:56 04/21/17 15:56 Gen: Pt in NAD, alert, awake, no distress HEENT: PERRLA, No accessory muscle usage Lungs: Diminished a/e at bases, No wheeze, fine crackles at bases CVS; S1, S2+, no new murmurs Abd: Soft, BS+ Skin: Multiple bruises present from blood draws and IVs Neuro: No focal deficits Ext: Normal ROM, no fractures, no cyanosis Laboratory Results - last 24 hr 04/21/17 04/21/17 04:06 04:06 INR (Anticoag Therapy) 2.11 H Sodium 137 Potassium 3.9 Chloride 97 L Carbon Dioxide 34 H Anion Gap 6 BUN 26 H Creatinine 0.58 L Est GFR ( Amer) 178.1 Est GFR (Non-Af Amer) 138.5 BUN/Creatinine Ratio 44.8 H Glucose 114 H Calcium 8.9 CXR 04/18/17: Patchy air space opacities at bases b/l, slightly improved aeration ECHO: Interval worsening of RV function with increased wall thickness and pressure overload, diastolic dysfunction and normal EF CT chest- dense consolidations b/l, signifciant emphysema, resolution of previously noted cavitary opacity I/R: 71 y o m with severe emphysema, Apergillus PNA, hypoxia, anemia, GI bleed with worsening SOB, hypoxia, clinical picture consistent with cor pulmonale secondary to chronic hypoxia being treated for pneumonia Pt with low reserve to begin with & with acute worsening secondary to PNA and recent PE, off high flow, down to 5L S/p bronchoscopy for air way clearance, cultures negative to date Abx as per ID Pt reponded well to Voriconazole for fungal PNA with resolution of cavitary lesion C/w O2 supplemetation, titrate as tolerated to maintain 90-92% C/w Lasix c/w bronchodilators and metanebs He doesnot qualify per current medicare criteria for Trilogy inspite of severe COPD and recurrent hospitalizations as he doesnot have signficant hypercapnia Pt will benefit from PT and rehab upon d/c
[2017-04-22] MEDS: Benzonatate CAP* 100 MG PO SCH ×3 (00:44→17:46)
[2017-04-22] MEDS: Acetylcysteine INHALATION SOL* 200 MG/ML NEB.SOLN 10 ML INH SCH ×4 (01:07→19:47)
[2017-04-22] MEDS: Albuterol/Ipratropium NEB.SOL* Albuterol 2.5 MG/Ipratropium 0.5 MG 3 ML INH SCH ×4 (01:07→19:46)
[2017-04-22] MEDS: Albuterol/Ipratropium NEB.SOL* Albuterol 2.5 MG/Ipratropium 0.5 MG 3 ML INH PRN (05:03)
[2017-04-22] MEDS: oxyCODONE/Acetamin 5/325 MG* TAB PO PRN ×3 (05:58→17:45)
[2017-04-22] MEDS: Mometasone/Formoter 200/5 MDI INH SCH ×2 (09:20→19:49)
[2017-04-22] MEDS: Tiotropium CAP.INH* CAP.INH/18 MCG INH SCH (09:20)
[2017-04-22] MEDS: Aspirin EC Low Dose* 81 MG TAB.EC PO SCH (09:33)
[2017-04-22] MEDS: Cephalexin CAP* 500 MG PO SCH ×4 (09:34→20:40)
[2017-04-22] MEDS: Omeprazole CAP* 20 MG PO SCH ×2 (09:35→20:41)
[2017-04-22] MEDS: Cholecalciferol TAB* 1000 UNITS PO SCH (09:35)
[2017-04-22] MEDS: Montelukast Sodium TAB* 10 MG PO SCH (09:35)
[2017-04-22] MEDS: guaiFENesin ER TAB 600 MG PO SCH ×2 (09:35→20:40)
[2017-04-22] MEDS: VORICONAZOLE 50 MG PO SCH ×2 (09:36→20:37)
[2017-04-22] MEDS: Docusate CAP* 100 MG PO PRN ×2 (09:45→23:37)
--- NOTE | 2017-04-22 13:39 | PN ---
Subjective Date of Service: 04/22/17 Interval History: HOSPITALIST PROGRESS NOTE Patient seen and examined at bedside. In good spirits today, have more energy and fells his breathing is easier. He thinks he would be okay with VNS and outpatient PT at home, and willing to hire aide help. Family History: Unchanged from Admission Social History: Unchanged from Admission Past Medical History: Unchanged from Admission Objective Active Medications: Acetylcysteine (Mucomyst Inhalation Mariella*) 400 mg INH [id number] AWAKE [facility] Last Admin: 04/22/17 09:06 Dose: 400 mg Albuterol/Ipratropium (Duoneb (Albuterol 2.5 Mg/Ipratropium 0.5 Mg)) 1 neb INH [id number] AWAKE [facility] Last Admin: 04/22/17 09:06 Dose: 1 neb Albuterol/Ipratropium (Duoneb (Albuterol 2.5 Mg/Ipratropium 0.5 Mg)) 1 neb INH Q4H PRN PRN Reason: SOB/WHEEZING Last Admin: 04/22/17 05:03 Dose: 1 neb Aspirin (Aspirin Ec Low Dose*) 81 mg PO DAILY [facility] Last Admin: 04/22/17 09:33 Dose: 81 mg Atorvastatin Calcium (Lipitor*) 20 mg PO QPM [facility] Last Admin: 04/21/17 16:05 Dose: 20 mg Benzonatate (Tessalon Cap*) 200 mg PO Q8H [facility] Last Admin: 04/22/17 09:36 Dose: Not Given Calcium Carbonate (Tums*) 500 mg PO TID PRN PRN Reason: DYSPEPSIA Cephalexin HCl (Keflex Cap*) 500 mg PO QID [facility] Last Admin: 04/22/17 13:29 Dose: 500 mg Cholecalciferol (Vitamin D Tab*) 1,000 units PO DAILY [facility] Last Admin: 04/22/17 09:35 Dose: 1,000 units Cyclobenzaprine HCl (Flexeril Tab*) 10 mg PO TID PRN PRN Reason: PAIN Last Admin: 04/11/17 08:05 Dose: 10 mg Docusate Sodium (Colace Cap*) 100 mg PO BID PRN PRN Reason: CONSTIPATION Last Admin: 04/22/17 09:45 Dose: 100 mg Guaifenesin (Robitussin*) 10 ml PO Q4H PRN PRN Reason: COUGH Last Admin: 04/15/17 01:31 Dose: 10 ml Guaifenesin (Mucinex*) 1,200 mg PO BID [facility] Last Admin: 04/22/17 09:35 Dose: 1,200 mg Magnesium Hydroxide (Milk Of Magnesia Liq*) 30 ml PO Q6H PRN PRN Reason: CONSTIPATION Last Admin: 04/21/17 13:30 Dose: 30 ml Mometasone Furoate/Formoterol Fumar (Dulera 200/5 Mdi*) 2 puff INH BID [facility] PRN Reason: Protocol Last Admin: 04/21/17 19:36 Dose: 2 puff Montelukast Sodium (Singulair Tab*) 10 mg PO DAILY [facility] Last Admin: 04/22/17 09:35 Dose: 10 mg Omeprazole (Prilosec Cap*) 20 mg PO BID [facility] Last Admin: 04/22/17 09:35 Dose: 20 mg Oxycodone/Acetaminophen (Percocet 5/325 Tab*) 1 tab PO Q4H PRN PRN Reason: Pain Last Admin: 04/22/17 13:27 Dose: 1 tab Pharmacy Profile Note (Coumadin Daily Reminder*) 0 note FOLLOW UP 1700 [facility] Last Admin: 04/21/17 16:05 Dose: 2.5 note Pharmacy Profile Note (Coumadin Per Pharmacy*) 1 note FOLLOW UP .PER PHARMACY [facility] PRN Reason: Protocol Polyethylene Glycol/Electrolytes (Miralax*) 17 gm PO DAILY PRN PRN Reason: CONSTIPATION Last Admin: 04/21/17 12:21 Dose: 17 gm Senna (Senokot Tab*) 1 tab PO BEDTIME PRN PRN Reason: CONSTIPATION Last Admin: 04/21/17 00:57 Dose: 1 tab Sodium Biphosphate/Sodium Phosphate (Fleet Enema*) 1 bottle OR DAILY PRN PRN Reason: CONSTIPATION Last Admin: 04/21/17 16:06 Dose: 1 bottle Sodium Chloride (Sodium Chloride 0.65% Nasal Drops*) 1 drop BOTH NARES Q4H PRN PRN Reason: nasal congestion Last Admin: 04/18/17 07:02 Dose: 1 drop Tiotropium Banco (Spiriva Cap.Inh*) 1 cap INH DAILY [facility] Last Admin: 04/21/17 07:20 Dose: 1 cap Voriconazole (Vfend (Nf)) 200 mg PO BID [facility] PRN Reason: Protocol Last Admin: 04/22/17 09:36 Dose: 200 mg Warfarin Sodium (Coumadin Tab(*)) 2.5 mg PO DAILY@1700 [facility] Stop: 04/23/17 17:01 Vital Signs 04/22/17 04/22/17 04/22/17 05:03 05:58 07:29 Temperature 97.6 F Pulse Rate 78 78 Respiratory 20 18 18 Rate Blood Pressure 121/54 (mmHg) O2 Sat by Pulse 97 92 Oximetry Oxygen Devices in Use Now: Nasal Cannula - 5L Appearance: Pleasant gentleman sitting up in a chair in NAD. Eyes: No Scleral Icterus Ears/Nose/Mouth/Throat: Mucous Membranes Moist Neck: Trachea Midline Respiratory: Symmetrical Chest Expansion and Respiratory Effort, Clear to Auscultation Cardiovascular: RRR - Normal S1 and S2 Abdominal: NL Sounds; No Tenderness; No Distention Extremities: - - Bilateral mild to moderate LE pitting edema Neurological: Alert and Oriented x 3, NL Muscle Strength and Tone Lines/Tubes/Other Access: Clean, Dry and Intact Peripheral IV Nutrition: Taking PO's Result Diagrams: 04/19/17 06:10 04/21/17 04:06 Assess/Plan/Problems-Billing Mr Celis is a 71 yo M with a h/o chronic hypoxic respiratory failure secondary to COPD on O2, 3.5L continuously, invasive pulmonary aspergillosis, recent dx of PE and CAD who presented to the ER with c/o progressive SOB, gurgling respirations and hypoxia found to have staph aureus PNA. - Patient Problems (1) Acute and chronic respiratory failure with hypoxia Comment: - Improving. - Patient has been weaned from vapotherm and is currently on 5L NC, but does not feel back to his respiratory baseline yet. - Secondary to pneumonia, invasive aspergillosis, and PE in the setting of COPD - Appreciate pulmonology and ID consults. - S/P bronchoscopy with suction of significant amounts of mucous on 04/18. (2) Acute diastolic CHF (congestive heart failure) Comment: - Echo showed EF 60-65%, no wall motion abnormalities. - Still has LE edema and but bibasilar crackles are improved. Suspect residual edema is associated with cor pulmonale. - Continue Furosemide, but change to PO. (3) Hyponatremia Comment: - Resolved. (4) Pneumonia Comment: - Sputum grew S. aureus and stenotrophomonas multophilia. - Dr. Means recommended additional 2 weeks of cephalexin (until 05/04) - Additonal cultures sent from bronchoscopy - no growth so far. (5) Pulmonary embolism Comment: - INR 2.3. - Continue Warfarin as per pharmacy. (6) Cor pulmonale Comment: - Likely due to combination of PNA, PE, COPD, hypoxia. (7) Aspergillosis Comment: - Continue voriconazole. - Follow up with Dr. Means as outpatient. (8) Atrial fibrillation Comment: - Hx of paroxysmal afib. - Currently in sinus rhythm. - Anticoagulated with warfarin. (9) HTN (hypertension) Comment: - BP has been controlled off Amlodipine. (10) DVT prophylaxis Comment: - Warfarin dose per pharmacy. (11) Full code status Status and Disposition: Patient still feels weak, but thinks he would be able to manage at home with VNS and aides service. CM to assist with discharge plan.
[2017-04-22] MEDS ORDERED: Warfarin TAB(*) 2.5 MG PO SCH (17:00)
[2017-04-22] MEDS: Atorvastatin* 20 MG TAB PO SCH (17:45)
[2017-04-23] MEDS: Albuterol/Ipratropium NEB.SOL* Albuterol 2.5 MG/Ipratropium 0.5 MG 3 ML INH SCH ×3 (01:27→13:02)
[2017-04-23] MEDS: Acetylcysteine INHALATION SOL* 200 MG/ML NEB.SOLN 10 ML INH SCH ×3 (01:27→13:02)
[2017-04-23] MEDS: Benzonatate CAP* 100 MG PO SCH ×2 (01:51→11:26)
[2017-04-23] MEDS: Albuterol/Ipratropium NEB.SOL* Albuterol 2.5 MG/Ipratropium 0.5 MG 3 ML INH PRN (05:05)
[2017-04-23 07:33] LABS: Hematocrit 30 % (42-52); Hemoglobin 9.3 g/dl (14.0-18.0); Mean Corpuscular HGB Conc 31 g/dl (31-36); Mean Corpuscular Hemoglobin 27 pg (27-31); Mean Corpuscular Volume 86 fL (80-94); Mean Platelet Volume 7 um3 (7.4-10.4); Red Blood Count 3.44 10^6/ul (4.0-5.4); Red Cell Distribution Width 19 % (10.5-15); White Blood Count 9.2 10^3/ul (3.5-10.8)
[2017-04-23 07:43] LABS: BUN/Creatinine Ratio 37.3 (8-20); Calcium 9.2 mg/dL (8.6-10.3); EGFR African American 206.6 (>60); EGFR Non-African American 160.7 (>60); Potassium 4.8 mmol/L (3.5-5.0)
[2017-04-23 07:58] VITALS: BP 129/54
[2017-04-23] MEDS: Cephalexin CAP* 500 MG PO SCH ×2 (08:36→13:20)
[2017-04-23] MEDS: Omeprazole CAP* 20 MG PO SCH (08:36)
[2017-04-23] MEDS: oxyCODONE/Acetamin 5/325 MG* TAB PO PRN (08:36)
[2017-04-23] MEDS: Cholecalciferol TAB* 1000 UNITS PO SCH (08:36)
[2017-04-23] MEDS: Aspirin EC Low Dose* 81 MG TAB.EC PO SCH (08:36)
[2017-04-23] MEDS: guaiFENesin ER TAB 600 MG PO SCH (08:37)
[2017-04-23] MEDS: Montelukast Sodium TAB* 10 MG PO SCH (08:37)
[2017-04-23] MEDS: Docusate CAP* 100 MG PO PRN (08:37)
[2017-04-23] MEDS: VORICONAZOLE 50 MG PO SCH (08:38)
[2017-04-23] MEDS: Tiotropium CAP.INH* CAP.INH/18 MCG INH SCH (08:48)
[2017-04-23] MEDS: Mometasone/Formoter 200/5 MDI INH SCH (08:48)
--- NOTE | 2017-04-23 17:22 | DS ---
CC: Dr. Garcia; Dr. Means; Dr. Israel; Dr. Salgado at [facility]; Dr. Gonzalez * DISCHARGE SUMMARY: DATE OF ADMISSION: 04/07/17 DATE OF DISCHARGE: 04/23/17 PRIMARY CARE PROVIDER: Dr. Garcia. INFECTIOUS DISEASE SPECIALIST: Dr. Means. SOLO TRUCK DRIVER: Dr. Israel and Dr. Salgado COMPUTER SYSTEMS SOFTWARE ARCHITECT: Dr. Gonzalez. Dr. Salgado DISCHARGE DIAGNOSES: 1. Acute on chronic respiratory failure with hypoxia. 2. Methicillin-resistant Staphylococcus aureus/Stenotrophomonas maltophilia pneumonia. 3. Acute diastolic congestive heart failure exacerbation. 4. Hyponatremia, likely associated with his pulmonary processes. 5. Cor pulmonale. 6. Pulmonary embolism. SECONDARY DIAGNOSES: 1. Chronic obstructive pulmonary disease with chronic respiratory failure. 2. Invasive pulmonary aspergillosis. 3. Coronary artery disease. 4. Hypertension. 5. Hyperlipidemia. 6. Paroxysmal atrial fibrillation. 7. Remote history of prostate cancer, status post prostatectomy. MEDICATION LIST: 1. Potassium chloride 20 mEq p.o. daily. 2. Montelukast 10 mg p.o. daily. 3. Xopenex 1.25 mg inhale four times a day p.r.n. shortness of breath. 4. Cyclobenzaprine 10 mg p.o. t.i.d. as needed for muscle spasm and pain. 5. Symbicort 160/4.5 two puffs inhaled b.i.d. 6. Atorvastatin 20 mg p.o. at bedtime. 7. Aspirin 81 mg p.o. daily. 8. Combivent Respimat two puffs inhale four times a day p.r.n. shortness of breath. 9. Albuterol HFA two puffs inhaled four times a day p.r.n. shortness of breath. 10. Albuterol 2.5 mg inhaled four times a day p.r.n. shortness of breath. 11. Voriconazole 200 mg p.o. b.i.d. 12. Spiriva one capsule inhale daily. 13. Omeprazole 20 mg p.o. b.i.d. 14. Cholecalciferol 1000 units p.o. daily. 15. Percocet 5/325 mg one tablet p.o. q. 4 hours p.r.n. pain, MDD 4. 16. Guaifenesin 1200 mg p.o. b.i.d. New Medications: 1. Warfarin 2.5 mg p.o. daily. 2. Senna one tablet p.o. at bedtime as needed for constipation. 3. MiraLax 17 g p.o. daily as needed for constipation. 4. Furosemide 40 mg p.o. daily. 5. Cephalexin 500 mg p.o. four times a day to be completed on May 04. 6. Benzonatate 100 mg p.o. q. 8 hours p.r.n. severe cough. 7. Albuterol/ipratropium nebulized one neb q. 6 hours while awake. 8. Mucomyst 400 mg inhaled q. 6 hours while awake. HOSPITAL COURSE: Mr. Celis is a 71-year-old male with a complex past medical history as stated above that had been recently hospitalized from 03/31 to 04/02 with small burden of pulmonary embolism. He was discharged home but states that his breathing never recovered, so he presented again to the emergency room on 04/07 with complaints of dyspnea "gurgling respirations" and despite using his usual amount of oxygen, his oxygen saturation was 88%. For more details about his presentation, I refer you to his history and physical. The patient was admitted in the impression of acute on chronic hypoxemic respiratory failure and it was felt it was multifactorial possibly. A combination of congestive heart failure as well as possible pneumonia. Initially, the patient required BIPAP and he was initially admitted to the intensive care unit and started on broad spectrum antibiotics. Initial chest x-ray showed interval worsening of patchy density at the bilateral lower lungs, which could represent pneumonia. A transthoracic echocardiogram showed mild concentric LVH with ejection fraction of 60 to 65, septal flattening of the interventricular septum consistent with right ventricular volume or pressure overload. RV wall thickness is mildly increased. RV is moderately dilated and systolic function is low normal. Evidence of aortic sclerosis, trace aortic regurgitation, trace mitral regurgitation, and trace tricuspid regurgitation. When compared to his prior echo from November 2016, the LV function is not significantly changed but the RV findings are new. The patient was seen in consultation by Infectious Disease (Dr. Means) and his impression was the patient likely had a right lower lung field pneumonia that is suspected bacterial in the setting of recent rib fractures and splinting. His recommendation was to continue broad spectrum antibiotic. Continue voriconazole for his invasive pulmonary aspergillosis and he recommended changing Xarelto to warfarin due to interactions between voriconazole and his oral anticoagulant and at least with warfarin, we could monitor his INR and understand his actual anticoagulation while on voriconazole. The patient was also seen in consultation by lap checker, Dr. Israel and her impression was the patient is a 71-year-old male with severe emphysema, aspergillosis, hypoxia, anemia, GI bleed, who presented with worsening shortness of breath and hypoxia and a clinical picture consistent with cor pulmonale secondary to chronic hypoxia and right heart strain. The patient has low reserve to begin with and has acute worsening secondary to pneumonia and recent PE. Dr. Israel felt that his pneumonia was likely staphylococcal. She felt that he does not qualify for current Medicare criteria for trilogy in spite of severe COPD and recurrent hospitalization as he does not have significant hypercapnia. The patient had progressive improvement of his respiratory symptoms, although his oxygen requirements continue to be elevated. Sputum cultures sent on admission grew MSSA and Stenotrophomonas maltophilia. The patient was seen in followup by Dr. Means. They recommended changing his broad spectrum antibiotics to Ancef to cover MSSA and stenotrophomonas. The patient continued to improve slowly but as he still had high oxygen requirements including requiring Vapotherm that was difficult to wean. He had a CT of the chest that showed new bibasilar consolidative changes and emphysematous changes. Dr. Israel saw the patient in followup and recommended MetaNebs to assist with his secretion. She also performed a bronchoscopy on 04/18 that showed no endobronchial lesions, but thick secretions and mucous plugs were noted, which were suctioned out. All airways appeared to be patent with no endobronchial lesions. There was no bleeding during the procedure. Cultures from the bronchial washings grew only normal lisa. After the procedure, the patient had improvement of his respiratory status and they were able to wean him down from Vapotherm to cannula 12 L. His respiratory status continued to improve and today on the day of discharge, he required 5 L at rest, 7 L with exertion and feels much improved. The patient is anxious to return home, as he states "it has been 16 days since I being outside". The patient was noted to have hyponatremia, felt to be secondary to his multiple respiratory problems. Serum osmolality was 265. 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 He was advised to continue the fluid restriction and his sodium should be monitored as outpatient. The patient was also found to have acute diastolic CHF exacerbation and he responded well to diuresis. I believe his crackles secondary to CHF resolved. He still has some lower extremity edema that I think are more associated with his cor pulmonale at this point. So I believe further aggressive diuresis is not going to improve his respiratory status any further and I am concerned aggressive diuresis could cause hypotension, lightheadedness, and acute kidney injury. So at this point, the patient advised to continue oral furosemide at home. This was changed from 20 twice a day to 40 mg in the morning and also to continue to use his compression stockings. The patient has been on a stable dose of 2.5 mg of warfarin with an INR that has been stable. Last one was 2.3 and the plan is to check it weekly for now especially as he continues to be on voriconazole. He will follow up with Dr. Means, as of this time is not clear for how long he is going to be on voriconazole but the patient would like to return to [facility] when his voriconazole treatment is completed. The patient was found to be deconditioned and he was followed by Physical Therapy while in the hospital. Initially, there were plans for possible rehab placement but the patient made great progress with physical therapy and at this point, he feels ready to be discharged home to receive services from [facility] including outpatient physical therapy. His was also present during our conversation and she is comfortable with this discharge plan. The patient's amlodipine was held during discharge and his blood pressure has been controlled off this medication. As he goes home and return to his usual diet and activities, he may need the medication again but at this point, it does not appear to be necessary. The patient is medically stable for discharge at this time. PHYSICAL EXAMINATION: Vital Signs: Temperature 97.9, heart rate is 86, respiratory rate is 18, oxygen saturation is 91% on 5 L, blood pressure is 129/ 54. General: Patient is a pleasant elderly male, sitting up in a chair, in no acute distress. CVS: Normal S1, S2. Irregularly irregular. Chest: Breath sounds present bilaterally, coarse. No rhonchi or wheezing. Abdomen is soft. Bowel sounds are present. Extremities: [id number] bilateral lower extremity pitting edema. Neuro: He is alert, awake, oriented x3. Able to move all 4 extremities. DIET: Heart healthy diet with 1.5 L fluid restriction. ACTIVITIES: As tolerated. DISPOSITION: To home. STATUS WHILE IN THE HOSPITAL: Inpatient. Please keep in mind, this is a summarized version of this patient's prolonged and complex hospital stay. If you need more information, please feel free to call me at [phone] or please obtain the full medical records. TIME SPENT: Approximately 50 minutes was spent to complete the discharge. [id number]/CPS #: [id number] [id number]
== END 2017-04-23 13:45 | disposition home health service (06) | DRG 189 ==
LOC: ED 06:43 → ICU 08:40 → MED 04-09 07:46 → ICU 04-12 07:55 → MEDTELE 04-18 15:01
PROVIDERS: ADMIT Hospitalist; ATTEND Internal Medicine
PROC: 5A09357 Assistance with Respiratory Ventilation, Less than 24 Consecutive Hours, Continuous Positive Airway Pressure (ICD-10-PCS; 2017-04-07)
PROC: 0BC78ZZ Extirpation of Matter from Left Main Bronchus, Via Natural or Artificial Opening Endoscopic (ICD-10-PCS; principal; 2017-04-18)
PROC: 0BC18ZZ Extirpation of Matter from Trachea, Via Natural or Artificial Opening Endoscopic (ICD-10-PCS; 2017-04-18)
PROC: 0BC38ZZ Extirpation of Matter from Right Main Bronchus, Via Natural or Artificial Opening Endoscopic (ICD-10-PCS; 2017-04-18)
DX: J96.21 Acute and chronic respiratory failure with hypoxia (principal); I26.09 Other pulmonary embolism with acute cor pulmonale; B44.0 Invasive pulmonary aspergillosis; I50.33 Acute on chronic diastolic (congestive) heart failure; J15.6 Pneumonia due to other Gram-negative bacteria; J15.212 Pneumonia due to Methicillin resistant Staphylococcus aureus; I11.0 Hypertensive heart disease with heart failure; I42.9 Cardiomyopathy, unspecified; J44.0 Chronic obstructive pulmonary disease with (acute) lower respiratory infection; E22.2 Syndrome of inappropriate secretion of antidiuretic hormone; I48.0 Paroxysmal atrial fibrillation; R60.0 Localized edema; H26.9 Unspecified cataract; I25.10 Atherosclerotic heart disease of native coronary artery without angina pectoris; E87.5 Hyperkalemia; I08.3 Combined rheumatic disorders of mitral, aortic and tricuspid valves; E78.5 Hyperlipidemia, unspecified; Z85.46 Personal history of malignant neoplasm of prostate; Z82.2 Family history of deafness and hearing loss; Z82.49 Family history of ischemic heart disease and other diseases of the circulatory system; Z99.81 Dependence on supplemental oxygen; I25.2 Old myocardial infarction; Z88.8 Allergy status to other drugs, medicaments and biological substances; Z90.79 Acquired absence of other genital organ(s); Z87.891 Personal history of nicotine dependence; Z79.52 Long term (current) use of systemic steroids; Z79.82 Long term (current) use of aspirin; Z79.01 Long term (current) use of anticoagulants; D64.9 Anemia, unspecified; R79.1 Abnormal coagulation profile; R74.8 Abnormal levels of other serum enzymes; K21.9 Gastro-esophageal reflux disease without esophagitis
CPT/HCPCS: 31622; 36415; 36600; 71010; 71250; 80048; 80051; 80053; 80202; 81003; 82803; 83605; 83880; 83930; 83935; 84145; 84300; 84484; 85014; 85018; 85025; 85027; 85060; 85610; 85730; 86140; 87040; 87070; 87077; 87102; 87186; 87205; 87252; 93005; 93306; 94640; 94660; 94667; 94668; 94669; 94760; 99285; A9270-GY; J0456; J0690; J0692; J0696; J1650; J1940; J2001; J2250; J2270; J2310; J2930; J3010; J3370

== ENCOUNTER 2017-05-12 16:26 | Inpatient (IN) | payer MEDICARE ==
[2017-05-12] MEDS ORDERED: methylPREDNISolone 125 MG* 2 ML VIAL IV ONE (17:32)
[2017-05-12] MEDS ORDERED: Albuterol/Ipratropium NEB.SOL* Albuterol 2.5 MG/Ipratropium 0.5 MG 3 ML INH ONE (17:32)
[2017-05-12 18:17] LABS: Hematocrit 29 % (42-52); Hemoglobin 9.3 g/dl (14.0-18.0); Mean Corpuscular HGB Conc 32 g/dl (31-36); Mean Corpuscular Hemoglobin 28 pg (27-31); Mean Corpuscular Volume 86 fL (80-94); Mean Platelet Volume 7 um3 (7.4-10.4); Red Blood Count 3.39 10^6/ul (4.0-5.4); Red Cell Distribution Width 19 % (10.5-15); White Blood Count 7.1 10^3/ul (3.5-10.8)
--- NOTE | 2017-05-12 18:20 | RAD ---
Indication: Shortness of breath. Onset 3 days ago. Chronic respiratory failure. COPD. Comparison: April 19, 2017 Technique: Upright AP 1733 hours Report: Mild prominence and patchy mid to upper lung zone rarefaction of the interstitial markings. Mild alveolar consolidation at the lung bases less marked than on the April 19, 2017 exam. Grossly clear pleural spaces. Negative for pneumothorax. The heart, pulmonary vasculature, and mediastinal contours are unremarkable. Grossly nondisplaced LEFT eighth rib fracture noted laterally unchanged the prior exam. IMPRESSION: While less prominent than on the prior exam consolidation at the lung bases may represent residual or recurrent pneumonia.
[2017-05-12 18:30] LABS: Troponin I 0.01 ng/mL (<0.04)
[2017-05-12 18:53] LABS: Albumin 3.4 g/dL (3.2-5.2); BUN/Creatinine Ratio 20.7 (8-20); Calcium 8.8 mg/dL (8.6-10.3); EGFR African American 178.1 (>60); EGFR Non-African American 138.5 (>60); Globulin 3.1 g/dL (2-4); Potassium 3.9 mmol/L (3.5-5.0); Total Bilirubin 0.4 mg/dL (0.2-1.0); Total Protein 6.5 g/dL (6.4-8.9)
[2017-05-12] MEDS ORDERED: Vancomycin(*) 1,000 MG in NS 0.9% 250 ML* 250 ML IVPB ONE (19:32)
[2017-05-12] MEDS ORDERED: Ipratropium 0.5MG/2.5ML NEB* 0.5 MG/2.5 ML NEB.SOLN INH SCH (20:00)
[2017-05-12] MEDS ORDERED: Albuterol 2.5 MG/3 ML NEB.SOL* (0.083%) INH SCH (20:00)
[2017-05-12] MEDS ORDERED: Vancomycin(*) 0 MG in NS 0.9% 250 ML* 250 ML IVPB SCH (20:00)
[2017-05-12] MEDS ORDERED: Albuterol 0.5% CONC NEB.SOL* 5 MG/ML 20 ml BOT INH ONE (20:37)
[2017-05-12] MEDS ORDERED: Albuterol 0.5% CONC NEB.SOL* 5 MG/ML 20 ml BOT ONE (20:49)
[2017-05-12] MEDS ORDERED: Ipratropium 0.5MG/2.5ML NEB* 0.5 MG/2.5 ML NEB.SOLN ONE (21:12)
[2017-05-12] MEDS ORDERED: Vancomycin per Pharmacy* NOTE FOLLOW UP PRN (21:27)
[2017-05-12] MEDS: Furosemide IV* 10 MG/ML VIAL (40 MG) IV SCH (21:44)
[2017-05-12] MEDS: Omeprazole CAP* 20 MG PO SCH (21:45)
[2017-05-12] MEDS: guaiFENesin ER TAB 600 MG PO SCH (21:45)
[2017-05-12] MEDS: Atorvastatin* 20 MG TAB PO SCH (21:45)
[2017-05-12] MEDS: methylPREDNISolone SOD 40 MG* 1 ML VIAL IV SCH (21:45)
[2017-05-12] MEDS: Cyclobenzaprine TAB* 10 MG PO PRN (21:59)
[2017-05-12] MEDS: CMCS Voriconazole (NF) 50 MG TAB PO SCH (23:23)
[2017-05-12] MEDS: Warfarin TAB(*) 2.5 MG PO SCH (23:23)
[2017-05-12] MEDS: Cefepime(*) 1 GM in NS 0.9% 50 ML* 50 ML IVPB SCH (23:24)
[2017-05-12] MEDS: Ipratropium 0.5MG/2.5ML NEB* 0.5 MG/2.5 ML NEB.SOLN INH SCH (23:34)
[2017-05-13] MEDS ORDERED: LORazepam INJ* 2 MG/ML 1 ML VIAL IV PUSH ONE (00:07)
[2017-05-13] MEDS ORDERED: LORazepam INJ* 2 MG/ML 1 ML VIAL ONE (00:13)
--- NOTE | 2017-05-13 00:57 | HP ---
HISTORY AND PHYSICAL: DATE OF ADMISSION: 05/12/17 CHIEF COMPLAINT: Shortness of breath. HISTORY OF PRESENT ILLNESS: This is a 71-year-old man with a history of chronic hypoxic respiratory failure due to COPD, chronic aspergillosis, recent pulmonary embolism, and recent admission for acute hypoxic respiratory failure earlier this month, presenting with 3 days of worsening dyspnea on exertion. He usually wears 3 to 4 L of home oxygen; however, over the past few days, has had to turn up the oxygen to about 5 L due to worsening shortness of breath and dyspnea on exertion. On a good day, he is able to walk a city block; however, over the past few days, he could not walk 20 feet and noticed increased recovery time after exertion. He denies change in his baseline cough or sputum. He denies any fevers, but noted some chills this morning. He denies sore throat, rhinorrhea, runny eyes or sick contacts. He has not yet had the flu shot, but he is up-to-date on his pneumonia shot. He has not run out of any medications. He finished his course of Ancef last Thursday for his recent MSSA pneumonia. He has been continued on voriconazole for his chronic aspergillosis. He and his report medication adherence. He quit smoking years ago and has not had any recent environmental exposures. He denies chest pain and he does not believe that he had gained any weight; however, he does endorse worsening lower extremity edema over the past few days. He sleeps sitting up in a recliner because he is unable to lie flat due to shortness of breath. He tried to use his home nebulizers without any relief. PAST MEDICAL HISTORY: Pulmonary embolus, diagnosed 2 months ago, on warfarin; diastolic heart failure; COPD; invasive pulmonary aspergillosis; coronary artery disease; hypertension; hyperlipidemia; paroxysmal AFib; remote prostate cancer, status post prostatectomy. HOME MEDICATIONS: 1. Potassium chloride 20 mEq p.o. daily. 2. Montelukast 10 mg p.o. daily. 3. Xopenex 1.25 mg inhaled 4 times daily p.r.n. shortness of breath. 4. Cyclobenzaprine 10 mg p.o. t.i.d. p.r.n. muscle spasm. 5. Symbicort 2 puffs inhaled b.i.d. 6. Atorvastatin 20 mg p.o. q.h.s. 7. Aspirin 81 p.o. daily. 8. Combivent 2 puffs 4 times daily p.r.n. shortness of breath. 9. Albuterol 2 puffs 4 times daily p.r.n. shortness of breath. 10. Voriconazole 200 mg p.o. b.i.d. 11. Spiriva once daily. 12. Omeprazole 20 mg p.o. b.i.d. 13. Cholecalciferol 1000 units p.o. daily. 14. Percocet 1 tab p.o. q.4 p.r.n. pain. 15. Guaifenesin 1200 mg p.o. b.i.d. 16. Warfarin 2.5 mg p.o. daily. 17. Senna 1 tab daily q.h.s. p.r.n. constipation. 18. MiraLAX 17 g p.o. daily p.r.n. constipation. 19. Lasix 40 mg p.o. daily. 20. Cephalexin 500 mg p.o. 4 times a day was completed on May 04. 21. Mucomyst 400 mg inhaled q.6. SOCIAL HISTORY: He lives at home with his . He is a nonsmoker, nondrinker , and denies illicit drug use. He quit smoking years ago. REVIEW OF SYSTEMS: General: Denies weight loss or weight gain. Denies fevers or chills. HEENT: Denies congestion, sore throat, rhinorrhea. Chest: Denies chest pain, palpitations, but does endorse shortness of breath, dyspnea on exertion, cough productive of thin white sputum that is unchanged from baseline. Abdomen: Denies nausea, vomiting, constipation or diarrhea. Extremities: Denies weakness. Notes swelling bilaterally. Skin: Complains of erythematous rash on left lower quadrant of his abdomen. PHYSICAL EXAMINATION GENERAL: Alert, in mild respiratory distress, unable to speak full sentences. No accessory muscles in use. VITAL SIGNS: Temperature 100.1 degrees, heart rate 93, respiratory rate 26, pulse ox 98% on 25 L high flow nasal cannula at 40% FiO2, blood pressure 139/60. HEENT: Pupils equal, round, and reactive to light. Extraocular muscles intact. No nystagmus. Moist mucosa. NECK: JVP is noted at 10 cm. No cervical lymphadenopathy. CHEST: Regular rate and rhythm. A 2/6 systolic murmur at the right upper sternal border without radiation. Very poor air movement noted in all lung jules. No crackles or rhonchi are noted. Prolonged expiratory phase and tachypnea. ABDOMEN: Soft, nontender, nondistended. Bowel sounds in 4 quadrants. EXTREMITIES: 2+ pitting edema to the knees bilaterally, right equal to left. No clubbing. SKIN: Patchy erythematous plaques over left hip and under pannus. DIAGNOSTIC STUDIES/LAB DATA: White blood cell 7.1, hemoglobin 9.3, platelets 418, no bands. Sodium 129, potassium 3.9, chloride 92, bicarb 27, BUN 12, creatinine 0.58, glucose 87. Imaging: A chest x-ray shows consolidations at the lung bases that while less prominent than on prior exam, may represent residual or recurrent pneumonia. ED COURSE: In the ED, he received DuoNeb and Medrol 125 mg IV. ASSESSMENT AND PLAN: Mr. Vargas is a 71-year-old man with a recent medical history of methicillin-susceptible Staphylococcus aureus pneumonia with a course of Ancef completed approximately a week ago, and recent pulmonary embolism in combination with emphysema and heart failure, who is presenting with worsening shortness of breath and dyspnea on exertion and is found to be hypoxic. 1. Acute on chronic hypoxic respiratory failure. He has a marked increase in his oxygen requirement from 3 L at baseline to 25 L at this time. Continue high flow nasal cannula. Admit to the ICU. He has never been intubated; however , I did discuss intubation with him and his . If this is necessary, he is willing to undergo intubation. The etiology of his decompensation at this time is unclear; however, based on my physical exam, I suspect an acute exacerbation of his chronic obstructive pulmonary disease. This is most likely caused by infection. Begin IV Solu-Medrol. Continue with albuterol and q.4 Atrovent. Wean O2 as able. Check sputum cultures. Check ABG. Given his recent frequent hospitalizations, he may benefit from daily azithromycin going forward, it does not appear that his chronic obstructive pulmonary disease has been staged. 2. Healthcare-associated pneumonia. While his chest x-ray is equivocal, given his recent known pneumonia and the consolidations, may be resolving prior pneumonia, I cannot rule out recurrent or superimposed pneumonia as the etiology of this decompensation. I will treat him for healthcare-associated pneumonia with vancomycin and cefepime and follow up sputum cultures. 3. Recent pulmonary embolism with cor pulmonale. He reports that VNS checked his INR this morning at home and it was therapeutic at 2.5. I will continue his home dose of warfarin at 2.5 mg daily and recheck an INR in the morning. Of note, warfarin was chosen due to NOACs' interaction with voriconazole. 4. [id number] diastolic heart failure. We will await the weight to confirm my suspicion that he is in acute decompensated heart failure; however, my physical exam suggests that he may be. I will change his home p.o. Lasix to IV Lasix. 5. Chronic pulmonary aspergillosis. Continue home dose of voriconazole indefinitely. 6. Coronary artery disease. Continue atorvastatin. 7. Hyponatremia, chronic and likely related to his underlying pulmonary disease. [id number]/[facility] #: [id number] MTDD
--- NOTE | 2017-05-13 01:53 | PN ---
Progress Note - Progress Note Date of Service: 05/13/17 Note: Noted to be refusing continuos nebulizer and removing from face. Changed to q2hr albuterol nebulizers at 0200.
[2017-05-13] MEDS: methylPREDNISolone SOD 40 MG* 1 ML VIAL IV SCH ×4 (02:25→20:00)
[2017-05-13] MEDS: Vancomycin(*) 1,000 MG in NS 0.9% 250 ML* 250 ML IVPB SCH ×3 (05:05→22:24)
[2017-05-13 05:35] LABS: Hematocrit 37 % (42-52); Hemoglobin 11.8 g/dl (14.0-18.0); Mean Corpuscular HGB Conc 32 g/dl (31-36); Mean Corpuscular Hemoglobin 27 pg (27-31); Mean Corpuscular Volume 85 fL (80-94); Mean Platelet Volume 7 um3 (7.4-10.4); Red Blood Count 4.33 10^6/ul (4.0-5.4); Red Cell Distribution Width 19 % (10.5-15); White Blood Count 1.9 10^3/ul (3.5-10.8)
[2017-05-13 05:39] LABS: Comments Flag Yes
[2017-05-13 05:40] LABS: Add Diff/Slide Review? Slide Review Added
[2017-05-13] MEDS: Ipratropium 0.5MG/2.5ML NEB* 0.5 MG/2.5 ML NEB.SOLN INH SCH (05:49)
[2017-05-13 05:53] LABS: BUN/Creatinine Ratio 21.2 (8-20); Calcium 8.7 mg/dL (8.6-10.3); EGFR African American 202.1 (>60); EGFR Non-African American 157.1 (>60); Potassium 3.7 mmol/L (3.5-5.0)
[2017-05-13] MEDS: Albuterol/Ipratropium NEB.SOL* Albuterol 2.5 MG/Ipratropium 0.5 MG 3 ML INH SCH ×3 (07:27→20:22)
[2017-05-13 07:28] LABS: FIO2 40
[2017-05-13 07:31] LABS: PCO2 Arterial 40 mmHg (35-45)
[2017-05-13] MEDS: Furosemide IV* 10 MG/ML VIAL (40 MG) IV SCH (08:42)
[2017-05-13] MEDS: Aspirin Low Dose CHEW TAB* 81 MG PO SCH (08:44)
[2017-05-13] MEDS: Montelukast Sodium TAB* 10 MG PO SCH (08:44)
[2017-05-13] MEDS: guaiFENesin ER TAB 600 MG PO SCH ×2 (08:44→20:00)
[2017-05-13] MEDS: Omeprazole CAP* 20 MG PO SCH ×2 (08:44→20:00)
[2017-05-13] MEDS: Cholecalciferol TAB* 1000 UNITS PO SCH (08:44)
[2017-05-13] MEDS: CMCS Voriconazole (NF) 50 MG TAB PO SCH ×2 (08:45→20:00)
[2017-05-13] MEDS: Potassium Chlor TAB* 20 MEQ TAB.ER PO SCH (08:45)
[2017-05-13] MEDS: Cefepime(*) 1 GM in NS 0.9% 50 ML* 50 ML IVPB SCH ×2 (11:08→21:43)
--- NOTE | 2017-05-13 16:29 | PN ---
Subjective Date of Service: 05/13/17 Interval History: No overnight events. Feeling better this morning. Much less shortness of breath with minimal exertion. He is sitting up in the bed. Complains of a cough but denies sputum. No fevers, chills, chest pain, nausea, vomiting. Family History: Unchanged from Admission Social History: Unchanged from Admission Past Medical History: Unchanged from Admission Objective Active Medications: Albuterol (Ventolin 2.5 Mg/3 Ml Neb.Mariella*) 2.5 mg INH Q2H PRN PRN Reason: SOB/WHEEZING Albuterol/Ipratropium (Duoneb (Albuterol 2.5 Mg/Ipratropium 0.5 Mg)) 1 neb INH [id number] AWAKE [facility] Last Admin: 05/13/17 12:45 Dose: 1 neb Aspirin (Aspirin Low Dose Tab*) 81 mg PO DAILY [facility] Last Admin: 05/13/17 08:44 Dose: 81 mg Atorvastatin Calcium (Lipitor*) 20 mg PO 2100 [facility] Last Admin: 05/12/17 21:45 Dose: 20 mg Cholecalciferol (Vitamin D Tab*) 1,000 units PO DAILY [facility] Last Admin: 05/13/17 08:44 Dose: 1,000 units Cyclobenzaprine HCl (Flexeril Tab*) 10 mg PO TID PRN PRN Reason: SPASMS Last Admin: 05/12/17 21:59 Dose: 10 mg Furosemide (Lasix Iv*) 40 mg IV DAILY [facility] Last Admin: 05/13/17 08:42 Dose: 40 mg Guaifenesin (Mucinex*) 1,200 mg PO BID [facility] Last Admin: 05/13/17 08:44 Dose: 1,200 mg Cefepime HCl 1 gm/ Sodium (Chloride) 50 mls @ 100 mls/hr IVPB Q12H [facility] Last Admin: 05/13/17 11:08 Dose: 100 mls/hr Vancomycin HCl 1,000 mg/ (Sodium Chloride) 250 mls @ 166.667 mls/hr IVPB Q8H [facility] Last Admin: 05/13/17 13:51 Dose: 166.667 mls/hr Methylprednisolone Sodium Succinate (Solu-Medrol 40 Mg) 40 mg IV Q6H [facility] Last Admin: 05/13/17 14:43 Dose: 40 mg Montelukast Sodium (Singulair Tab*) 10 mg PO DAILY [facility] Last Admin: 05/13/17 08:44 Dose: 10 mg Omeprazole (Prilosec Cap*) 20 mg PO BID [facility] Last Admin: 05/13/17 08:44 Dose: 20 mg Oxycodone/Acetaminophen (Percocet 5/325 Tab*) 1 tab PO Q4H PRN PRN Reason: PAIN Pharmacy Consult (Vancomycin Per Pharmacy*) 1 note FOLLOW UP . PRN PRN Reason: PER PROTOCOL Pharmacy Profile Note (Vancomycin Trough Check) 1 note FOLLOW UP 0530 ONE Stop: 05/14/17 05:31 Polyethylene Glycol/Electrolytes (Miralax*) 17 gm PO DAILY PRN PRN Reason: CONSTIPATION Potassium Chloride (Klor Con Er Tab*) 20 meq PO DAILY [facility] Last Admin: 05/13/17 08:45 Dose: 20 meq Voriconazole (Vfend (Nf)) 200 mg PO BID [facility] Last Admin: 05/13/17 08:45 Dose: 200 mg Warfarin Sodium (Coumadin Tab(*)) 2.5 mg PO DAILY@1700 [facility] PRN Reason: Protocol Last Admin: 05/12/17 23:23 Dose: 2.5 mg Vital Signs 05/12/17 05/12/17 05/12/17 19:30 20:00 20:01 Temperature 99.8 F Pulse Rate 95 89 99 Respiratory 18 19 Rate Blood Pressure 136/69 153/78 (mmHg) O2 Sat by Pulse 95 97 92 Oximetry 05/12/17 05/12/17 05/12/17 20:07 20:16 20:31 Temperature Pulse Rate 100 93 98 Respiratory 24 17 25 Rate Blood Pressure 153/78 152/69 130/66 (mmHg) O2 Sat by Pulse 93 94 93 Oximetry 05/12/17 05/12/17 05/12/17 20:34 20:45 21:00 Temperature 97.9 F Pulse Rate 98 101 92 Respiratory 20 30 20 Rate Blood Pressure 115/95 122/66 138/77 (mmHg) O2 Sat by Pulse 93 94 Oximetry 05/12/17 05/12/17 05/12/17 21:26 21:30 22:00 Temperature Pulse Rate 93 96 99 Respiratory 16 18 22 Rate Blood Pressure 121/62 (mmHg) O2 Sat by Pulse 97 96 97 Oximetry 05/12/17 05/12/17 05/12/17 22:01 22:03 22:30 Temperature Pulse Rate 94 95 99 Respiratory 21 17 19 Rate Blood Pressure 134/90 136/69 (mmHg) O2 Sat by Pulse 98 97 94 Oximetry 05/12/17 05/12/17 05/12/17 23:00 23:01 23:02 Temperature Pulse Rate 101 109 105 Respiratory 17 23 20 Rate Blood Pressure 162/85 (mmHg) O2 Sat by Pulse 97 97 97 Oximetry 05/12/17 05/12/17 05/13/17 23:31 23:34 00:00 Temperature 100.0 F Pulse Rate 102 100 101 Respiratory 23 23 20 Rate Blood Pressure 138/73 (mmHg) O2 Sat by Pulse 98 98 94 Oximetry 05/13/17 05/13/17 05/13/17 00:01 00:16 00:18 Temperature Pulse Rate 99 Respiratory 21 19 19 Rate Blood Pressure 112/73 (mmHg) O2 Sat by Pulse 96 Oximetry 05/13/17 05/13/17 05/13/17 00:30 01:00 01:31 Temperature Pulse Rate 100 96 101 Respiratory 21 22 20 Rate Blood Pressure 123/62 118/84 115/71 (mmHg) O2 Sat by Pulse 93 94 97 Oximetry 05/13/17 05/13/17 05/13/17 02:00 02:30 03:00 Temperature Pulse Rate 94 96 92 Respiratory 20 17 18 Rate Blood Pressure 113/77 125/62 115/64 (mmHg) O2 Sat by Pulse 95 92 95 Oximetry 05/13/17 05/13/17 05/13/17 03:30 04:00 04:30 Temperature 99.3 F Pulse Rate 96 90 88 Respiratory 18 22 20 Rate Blood Pressure 139/87 136/73 142/70 (mmHg) O2 Sat by Pulse 94 94 96 Oximetry 05/13/17 05/13/17 05/13/17 05:00 05:30 06:00 Temperature Pulse Rate 118 89 87 Respiratory 18 18 17 Rate Blood Pressure 121/69 134/71 (mmHg) O2 Sat by Pulse 84 96 96 Oximetry 05/13/17 05/13/17 05/13/17 06:39 07:00 07:30 Temperature 99.3 F Pulse Rate 90 92 90 Respiratory 23 14 18 Rate Blood Pressure 134/71 134/80 (mmHg) O2 Sat by Pulse 96 95 96 Oximetry 05/13/17 05/13/17 05/13/17 08:00 09:00 10:00 Temperature Pulse Rate 94 92 101 Respiratory 21 21 22 Rate Blood Pressure 137/71 128/70 118/62 (mmHg) O2 Sat by Pulse 97 95 95 Oximetry 05/13/17 05/13/17 05/13/17 11:00 12:00 12:46 Temperature 100.4 F Pulse Rate 98 94 90 Respiratory 16 16 17 Rate Blood Pressure 116/81 134/79 (mmHg) O2 Sat by Pulse 92 96 94 Oximetry 05/13/17 05/13/17 05/13/17 13:00 13:01 14:00 Temperature Pulse Rate 100 100 Respiratory 20 20 22 Rate Blood Pressure 122/81 117/67 (mmHg) O2 Sat by Pulse 93 94 Oximetry 05/13/17 05/13/17 15:00 15:49 Temperature Pulse Rate 89 Respiratory 18 22 Rate Blood Pressure 128/64 (mmHg) O2 Sat by Pulse 95 Oximetry Oxygen Devices in Use Now: High Flow Nasal Cannula - 40% FiO2 Appearance: alert, mildly dyspneic while speaking, no distress Eyes: No Scleral Icterus, PERRLA Ears/Nose/Mouth/Throat: NL Teeth, Lips, Gums, Clear Oropharnyx Neck: NL Appearance and Movements; NL JVP, Trachea Midline Respiratory: - - improved aeration, no rhonchi, prolonged expiratory phase Cardiovascular: NL Sounds; No Murmurs; No JVD, RRR Abdominal: NL Sounds; No Tenderness; No Distention, No Hepatosplenomegaly, - - erythematous patches on llq Lymphatic: No Cervical Adenopathy, No Axillary Adenopathy Extremities: - - pitting edema to shins Neurological: Alert and Oriented x 3 Result Diagrams: 05/13/17 05:19 05/13/17 05:19 Assess/Plan/Problems-Billing Assessment: 1. Acute on chronic hypoxic respiratory failure Continues to be hypoxic on this morning's ABG on 25lpm High flow nasal cannula at 40% FiO2. Likely secondary to an acute exacerbation of COPD--continue albuterol, ipratropium, solumedrol, and abx. Consult pulmonology. Wean O2 as able. No need for mechanical ventilation at this time. 2. HCAP Unclear if an infectious source was the etiology of his exacerbation, though this is most likely. His CXR is equivocal since he had a recent staph pneumonia within the past month and the consolidations may be resolving pneumonia or a recurrent/superimposed pneumonia. I am treating for hcap with vanc and cefepime; awaiting sputum cultures. 3. Recent PE Not likely to be contributing to hypoxia, as he has reportedly been therapeutic on warfarin. Continue 2.5mg warfarin daily. RV dysfunction noted on most recent TTE. 4. Acute on chronic diastolic heart failure. responded well to IV lasix; continue for now. Can likely switch back to po lasix tomorrow.
[2017-05-13] MEDS: Warfarin TAB(*) 2.5 MG PO SCH (17:45)
--- NOTE | 2017-05-13 19:06 | CONS ---
PULMONARY CONSULTATION REPORT: DATE OF CONSULTATION: 05/13/17 CONSULTATION REQUESTED BY: Janet Lara DO REASON FOR CONSULTATION: Evaluation of shortness of breath. HISTORY OF PRESENT ILLNESS: The patient is a 71-year-old male with history of severe COPD with recurrent exacerbations, multiple hospitalizations recently, pulmonary aspergillosis on antifungals, recent pulmonary embolism on anticoagulation, recent admission for acute hypoxemic respiratory failure earlier last month who presented with worsening shortness of breath over the past 3 days. The patient is on chronic oxygen therapy and has increased his oxygen to 5 L with no significant improvement in shortness of breath. The patient also reported cough productive of light brown phlegm. The patient denies fevers, had some chills prior to admission. He denies sore throat, rhinorrhea, sick contacts, chest pain, palpitations, dizziness. He also reports worsening lower extremity swelling. The patient's symptoms did not improve and he decided to come to the emergency room for further evaluation. The patient was noted to be hypoxemic in the emergency room on his baseline O2 of 3 L per minute. The patient was admitted to ICU for close monitoring and was also started on high flow O2. The patient was admitted for acute COPD exacerbation. The patient was seen and examined at bedside by me. Pulmonary consultation was requested for management of hypoxemia and shortness of breath. The patient reports slight improvement in breathing today. The patient reported significant constipation for the past week and had bowel movement today with improvement in breathing. The patient reported improvement in cough. He is not able to move much phlegm with the flatter device. The patient reported feeling congested in his chest. The patient reported that he has not been compliant with his Lasix at home. The patient denies dietary noncompliance. The patient is currently on high low at 40% FiO2 on 25 L. PAST MEDICAL HISTORY: 1. Pulmonary embolism, diagnosed 2 months ago, on warfarin. 2. Diastolic heart failure. 3. Severe COPD. 4. Recurrent bronchitis. 5. Invasive pulmonary aspergillosis. 6. Coronary artery disease. 7. Hypertension. 8. Hyperlipidemia. 9. Paroxysmal AFib. 10. Prostate cancer. 11. Status post prostatectomy. HOME MEDICATIONS: 1. Potassium chloride 20 mEq daily. 2. Montelukast 10 mg daily. 3. Xopenex p.r.n. 4. Cyclobenzaprine 10 mg t.i.d. p.r.n. 5. Symbicort 2 puffs b.i.d. 6. Atorvastatin 20 mg p.o. q.h.s. 7. Aspirin 81 mg daily. 8. Combivent 2 puffs 4 times a day p.r.n. 9. Albuterol 2 puffs 4 times p.r.n. 10. Voriconazole 200 mg b.i.d. 11. Spiriva daily. 12. Omeprazole 20 mg p.o. b.i.d. 13. Cholecalciferol 1000 units p.o. daily. 14. Percocet 1 tablet daily. 15. Guaifenesin 1200 mg p.o. b.i.d. 16. Warfarin 2.5 mg p.o. daily. 17. Senna 1 tablet daily as needed. 18. MiraLax 17 g p.o. daily as needed. 19. Lasix 40 mg p.o. daily. 20. Cephalexin 500 mg p.o. q.4 hours. 21. Mucomyst 400 mg q.6 hours. SOCIAL HISTORY: He lives at home with his . He is a former smoker, quit smoking in the past. No drug abuse. REVIEW OF SYSTEMS: All 14 systems reviewed and as per HPI. PHYSICAL EXAMINATION: The patient is sitting in the chair, in no apparent distress, mildly dyspneic. HEENT: Pupils are equal and reactive to light, mucous membranes moist. Neck: Supple. No JVD. Lymphatic: No palpable cervical or supraclavicular adenopathy. Cardiovascular: Systolic murmur, S1 and S2 present. Chest: Diminished air entry bilaterally, mild rhonchi present. Abdomen: Soft, nontender, nondistended. Bowel sounds present. Extremities: 2+ pitting edema up to the knees bilaterally. Skin: Erythematous plaques over upper extremities and over the left hip. LABORATORY DATA: Chest x-ray was personally reviewed by me, evidence of lower basal atelectasis. IMPRESSION AND RECOMMENDATIONS: 71-year-old male with multiple comorbidities, recurrent admissions, recently admitted with worsening shortness of breath and hypoxemia, is currently on high flow and is being treated for acute chronic obstructive pulmonary disease exacerbation. The patient with minimally improved symptoms. He has minimal reserve in his lungs with significant deterioration very quickly Hypoxemia, on high flow, will titrate as tolerated. Would recommend metanebs. Continue with prednisone, will taper the steroids. I do not think that this could be recurrence of pulmonary embolism as he is on therapeutic doses of Coumadin. He does have lower extremity swelling due cor pulmonale and has not been compliant with his Lasix. He has hyponatremia, which also probably is indicative of congestive heart failure with poor prognosis. Would continue with Lasix. I agree with the current antibiotic coverage. Thank you for allowing me to participate in care of your patient. Will follow up with you. [id number]/[facility] #: [id number] NIKKY
[2017-05-13] MEDS: Hydrocortisone 1% CREAM* 30 GM TUBE TOPICAL SCH (20:00)
[2017-05-13] MEDS: Atorvastatin* 20 MG TAB PO SCH (20:00)
[2017-05-13] MEDS: Polyethylene Glycol 3350* 17 GM PACKET PO PRN (20:02)
[2017-05-14] MEDS: Albuterol/Ipratropium NEB.SOL* Albuterol 2.5 MG/Ipratropium 0.5 MG 3 ML INH SCH ×4 (01:00→20:24)
[2017-05-14] MEDS: methylPREDNISolone SOD 40 MG* 1 ML VIAL IV SCH ×4 (02:27→18:19)
[2017-05-14] MEDS: Albuterol 2.5 MG/3 ML NEB.SOL* (0.083%) INH PRN (04:49)
[2017-05-14] MEDS ORDERED: Vancomycin Trough Check NOTE FOLLOW UP ONE (05:30)
[2017-05-14 05:57] LABS: Hematocrit 29 % (42-52); Hemoglobin 9.7 g/dl (14.0-18.0); Mean Corpuscular HGB Conc 33 g/dl (31-36); Mean Corpuscular Hemoglobin 28 pg (27-31); Mean Corpuscular Volume 84 fL (80-94); Mean Platelet Volume 7 um3 (7.4-10.4); Red Blood Count 3.48 10^6/ul (4.0-5.4); Red Cell Distribution Width 18 % (10.5-15); White Blood Count 3.5 10^3/ul (3.5-10.8)
[2017-05-14 06:08] LABS: BUN/Creatinine Ratio 30.4 (8-20); Calcium 8.8 mg/dL (8.6-10.3); EGFR African American 232.8 (>60); Potassium 3.8 mmol/L (3.5-5.0); Vancomycin Trough 14.6 mcg/mL
[2017-05-14 06:43] LABS: FIO2 40; PCO2 Arterial 48 mmHg (35-45)
[2017-05-14] MEDS: Vancomycin(*) 1,000 MG in NS 0.9% 250 ML* 250 ML IVPB SCH ×3 (06:48→22:44)
[2017-05-14] MEDS: Furosemide IV* 10 MG/ML VIAL (40 MG) IV SCH (08:29)
[2017-05-14] MEDS: Cholecalciferol TAB* 1000 UNITS PO SCH (08:30)
[2017-05-14] MEDS: Omeprazole CAP* 20 MG PO SCH ×2 (08:30→20:45)
[2017-05-14] MEDS: Aspirin Low Dose CHEW TAB* 81 MG PO SCH (08:30)
[2017-05-14] MEDS: guaiFENesin ER TAB 600 MG PO SCH ×2 (08:30→20:45)
[2017-05-14] MEDS: Montelukast Sodium TAB* 10 MG PO SCH (08:30)
[2017-05-14] MEDS: CMCS Voriconazole (NF) 50 MG TAB PO SCH ×2 (08:33→20:46)
[2017-05-14] MEDS: Potassium Chlor TAB* 20 MEQ TAB.ER PO SCH (08:34)
[2017-05-14] MEDS: Hydrocortisone 1% CREAM* 30 GM TUBE TOPICAL SCH (08:40)
--- NOTE | 2017-05-14 10:03 | PN ---
Subjective Date of Service: 05/14/17 Interval History: This is a 71 yo male with severe COPD and multiple hospital admissions for PNA and COPD exacerbation, most recent ~1 month ago with MSSA PNA discharged from the hospital 04/23 with Keflex thru 05/04. He returned to the hospital with increased dyspnea over several days prior. His CXR at admission showed bilateral infiltrated, but improved from prior study. He required ICU admission for high flow oxygen. He has been started on broad spectrum abx for HCAP with Cefepime and Vanco and treatment for COPD exacerbation with metanebs and solumedrol. Patient reports improvement in his dyspnea. He has a productive cough and able to produce a sputum sample this am. He also reports a rash noted the day prior to admission that covers his L hip and continues down his leg. He reports it is not painful apart from some irritation where it meets his underwear line. He has been started on hydrocortisone cream with some subjective improvement. Objective Active Medications: Albuterol (Ventolin 2.5 Mg/3 Ml Neb.Mariella*) 2.5 mg INH Q2H PRN PRN Reason: SOB/WHEEZING Last Admin: 05/14/17 04:49 Dose: 2.5 mg Albuterol/Ipratropium (Duoneb (Albuterol 2.5 Mg/Ipratropium 0.5 Mg)) 1 neb INH [id number] AWAKE [facility] Last Admin: 05/14/17 09:16 Dose: 1 neb Aspirin (Aspirin Low Dose Tab*) 81 mg PO DAILY [facility] Last Admin: 05/14/17 08:30 Dose: 81 mg Atorvastatin Calcium (Lipitor*) 20 mg PO 2100 [facility] Last Admin: 05/13/17 20:00 Dose: 20 mg Cholecalciferol (Vitamin D Tab*) 1,000 units PO DAILY [facility] Last Admin: 05/14/17 08:30 Dose: 1,000 units Cyclobenzaprine HCl (Flexeril Tab*) 10 mg PO TID PRN PRN Reason: SPASMS Last Admin: 05/12/17 21:59 Dose: 10 mg Furosemide (Lasix Iv*) 40 mg IV DAILY [facility] Last Admin: 05/14/17 08:29 Dose: 40 mg Guaifenesin (Mucinex*) 1,200 mg PO BID [facility] Last Admin: 05/14/17 08:30 Dose: 1,200 mg Hydrocortisone (Hytone Cream 1%*) 1 applic TOPICAL BID [facility] Last Admin: 05/14/17 08:40 Dose: 1 applic Cefepime HCl 1 gm/ Sodium (Chloride) 50 mls @ 100 mls/hr IVPB Q12H [facility] Last Admin: 05/13/17 21:43 Dose: 100 mls/hr Vancomycin HCl 1,000 mg/ (Sodium Chloride) 250 mls @ 166.667 mls/hr IVPB Q8H [facility] Last Admin: 05/14/17 06:48 Dose: 166.667 mls/hr Acyclovir Sodium 650 mg/ (Sodium Chloride) 113 mls @ 100 mls/hr IVPB Q8H [facility] Methylprednisolone Sodium Succinate (Solu-Medrol 40 Mg) 40 mg IV Q8H [facility] Montelukast Sodium (Singulair Tab*) 10 mg PO DAILY [facility] Last Admin: 05/14/17 08:30 Dose: 10 mg Omeprazole (Prilosec Cap*) 20 mg PO BID [facility] Last Admin: 05/14/17 08:30 Dose: 20 mg Oxycodone/Acetaminophen (Percocet 5/325 Tab*) 1 tab PO Q4H PRN PRN Reason: PAIN Pharmacy Consult (Vancomycin Per Pharmacy*) 1 note FOLLOW UP . PRN PRN Reason: PER PROTOCOL Polyethylene Glycol/Electrolytes (Miralax*) 17 gm PO DAILY PRN PRN Reason: CONSTIPATION Last Admin: 05/13/17 20:02 Dose: 17 gm Potassium Chloride (Klor Con Er Tab*) 20 meq PO DAILY [facility] Last Admin: 05/14/17 08:34 Dose: 20 meq Voriconazole (Vfend (Nf)) 200 mg PO BID [facility] Last Admin: 05/14/17 08:33 Dose: 200 mg Warfarin Sodium (Coumadin Tab(*)) 2.5 mg PO DAILY@1700 [facility] PRN Reason: Protocol Last Admin: 05/13/17 17:45 Dose: 2.5 mg Vital Signs: Temp Pulse Resp BP Pulse Ox 99.6 F 93 22 141/81 96 05/14/17 07:40 05/14/17 09:17 05/14/17 09:17 05/14/17 09:00 05/14/17 09:17 Oxygen Devices in Use Now: High Flow Nasal Cannula - 40% FiO2 Appearance: Chronically ill appearing, but alert and pleasant up in a chair speaking in full sentences. Respiratory: Symmetrical Chest Expansion and Respiratory Effort, - - crackles at lung bases bilaterally, no wheezing or rhonchi Cardiovascular: NL Sounds; No Murmurs; No JVD, RRR Abdominal: NL Sounds; No Tenderness; No Distention Extremities: - - 2+ bilateral LE edema which pt reports is improved over admission Skin: - - rash in a band like distribution covering his L posterior pelvis wrapping around his anterior leg, clear vesicles on an erythematous base and does not cross midline Neurological: Alert and Oriented x 3 Result Diagrams: 05/14/17 05:35 05/14/17 05:35 Diagnostic Imaging: CXR - bilateral basilar infiltrate L>R improved over 04/19 Assess/Plan/Problems-Billing Assessment: This is a 71 yo gentleman with severe COPD, pulm aspergillosis, recent PE, CAD, HTN, HLD and pafib who presents with increasing dyspnea after recent hospitalization for MSSA PNA. Admitted to ICU for high flow O2. - Patient Problems (1) Acute and chronic respiratory failure with hypoxia Comment: Improving, but still requiring high flow Oxygenation improved on am ABG Secondary to COPD exacerbation and suspected HCAP Sputum pending, blood cultures neg at this time Appreciate pulm consult Cont Cefepime and Vanco for broad spectrum coverage Cont voriconazole for aspergillosis suppression Cont Solumedrol, start to taper slightly with improved dyspnea Will attempt to wean from high flow as tolerated Cont inhaled therapies, deliver nebulized solution via metaneb (2) Acute diastolic CHF (congestive heart failure) Comment: Improving with IV Lasix Recent echo shows perserved EF with some diastolic dysfunction Also element of cor pulmonale (3) Herpes zoster Comment: Rash over his L hip is concerning for herpes zoster Vesicular fluid sent for PCR Empirically started acyclovir IV due to immunocompromised status with chronic steroids and acute illness (4) Hyponatremia Comment: Improving Likely secondary to hypervolemia from HF exacerbation Cont diuresis with IV Lasix (5) History of pulmonary embolism Comment: Therapeutic INR Unlikely to be contributing to acute presentation (6) Atrial fibrillation Comment: Hx of paroxysmal afib. Currently in sinus rhythm. Anticoagulated with warfarin. (7) HLD (hyperlipidemia) Comment: Continue atorvastatin. (8) HTN (hypertension) Comment: Normotensive (9) Full code status (10) DVT prophylaxis Comment: Coumadin with therapeutic INR Status and Disposition: Inpatient. Cont ICU level care. Anticipate prolonged hospital stay
[2017-05-14 10:23] LABS: C Reactive Protein 32.11 mg/L (< 5.00)
[2017-05-14] MEDS: Cefepime(*) 1 GM in NS 0.9% 50 ML* 50 ML IVPB SCH ×2 (10:42→21:35)
[2017-05-14] MEDS ORDERED: Influenza VAC *QUAD* 2017-18* 0.5 ML SYRINGE IM ONE (12:00)
--- NOTE | 2017-05-14 17:10 | PN ---
Progress Note - Progress Note Date of Service: 05/14/17 - Pulm consult f/u note Note: Pt seen and examined at bedside. Pt reports improvement in breathing today. Cough is improved. Was found to have herpes zoster rash and was started on Acyclovir. Was able to ambulate few steps.O2 flow being lowered. Active Medications Generic Name Dose Route Start Last Admin Trade Name Freq PRN Reason Stop Dose Admin Albuterol 2.5 mg 05/13/17 01:52 05/14/17 04:49 Ventolin 2.5 Mg/3 Ml Neb.Mariella* INH 2.5 mg Q2H PRN Administration SOB/WHEEZING Albuterol/Ipratropium 1 neb 05/13/17 07:00 05/14/17 13:43 Duoneb (Albuterol 2.5 Mg/Ipratropium 0.5 Mg) INH 1 neb [id number] AWAKE [facility] Administration Aspirin 81 mg 05/13/17 09:00 05/14/17 08:30 Aspirin Low Dose Tab* PO 81 mg DAILY [facility] Administration Atorvastatin Calcium 20 mg 05/12/17 21:00 05/13/17 20:00 Lipitor* PO 20 mg 2100 [facility] Administration Cholecalciferol 1,000 units 05/13/17 09:00 05/14/17 08:30 Vitamin D Tab* PO 1,000 units DAILY [facility] Administration Citalopram Hydrobromide 10 mg 05/15/17 09:00 Celexa Tab* PO DAILY [facility] Cyclobenzaprine HCl 10 mg 05/12/17 19:32 05/12/17 21:59 Flexeril Tab* PO 10 mg TID PRN Administration SPASMS Furosemide 40 mg 05/12/17 20:00 05/14/17 08:29 Lasix Iv* IV 40 mg DAILY [facility] Administration Guaifenesin 1,200 mg 05/12/17 21:00 05/14/17 08:30 Mucinex* PO 1,200 mg BID [facility] Administration Heparin Sodium (Porcine) 1 - 3 ml 05/14/17 18:00 Heparin Flush Picc/Ml/Cvc(*) FLUSH 0600,1800 [facility] Protocol Cefepime HCl 1 gm/ Sodium 50 mls @ 100 mls/hr 05/12/17 22:00 05/14/17 10:42 Chloride IVPB 100 mls/hr Q12H [facility] Administration Vancomycin HCl 1,000 mg/ 250 mls @ 166.667 mls/hr 05/13/17 06:00 05/14/17 13: 40 Sodium Chloride IVPB 166.667 mls/hr Q8H [facility] Administration Acyclovir Sodium 650 mg/ 113 mls @ 100 mls/hr 05/14/17 10:00 05/14/17 11:47 Sodium Chloride IVPB 100 mls/hr Q8H [facility] Administration Lactobacillus Rhamnosus 1 cap 05/14/17 21:00 Culturelle* PO BID [facility] Methylprednisolone Sodium Succinate 40 mg 05/14/17 10:00 05/14/17 10:42 Solu-Medrol 40 Mg IV 40 mg Q8H [facility] Administration Montelukast Sodium 10 mg 05/13/17 09:00 05/14/17 08:30 Singulair Tab* PO 10 mg DAILY [facility] Administration Omeprazole 20 mg 05/12/17 21:00 05/14/17 08:30 Prilosec Cap* PO 20 mg BID [facility] Administration Oxycodone/Acetaminophen 1 tab 05/12/17 19:32 Percocet 5/325 Tab* PO Q4H PRN PAIN Pharmacy Consult 1 note 05/12/17 21:27 Vancomycin Per Pharmacy* FOLLOW UP . PRN PER PROTOCOL Polyethylene Glycol/Electrolytes 17 gm 05/12/17 19:32 05/13/17 20:02 Miralax* PO 17 gm DAILY PRN Administration CONSTIPATION Potassium Chloride 20 meq 05/13/17 09:00 05/14/17 08:34 Klor Con Er Tab* PO 20 meq DAILY [facility] Administration Voriconazole 200 mg 05/12/17 22:00 05/14/17 08:33 Vfend (Nf) PO 200 mg BID [facility] Administration Warfarin Sodium 2.5 mg 05/12/17 23:00 05/13/17 17:45 Coumadin Tab(*) PO 2.5 mg DAILY@1700 [facility] Administration Protocol Vital Signs Temp Pulse Resp BP Pulse Ox 100.1 F 88 16 138/86 97 05/14/17 15:35 05/14/17 15:01 05/14/17 15:01 05/14/17 15:01 05/14/17 15:01 Gen: Sitting in chair in NAD, alert, awake, not using accessory muscles. Respiratory: Diminished air entry, no wheeze,crackles at lung bases bilaterally Cardiovascular: NL Sounds; No Murmurs; No JVD, RRR Abdominal: NL Sounds; No Tenderness; No Distention Extremities: 2+ bilateral LE edema, improved Skin: clear vesicles on an erythematous base around his anterior leg and waist in dermatomal distribution Neurological: Alert and Oriented x 3, no focal defecits Laboratory Results - last 24 hr 05/14/17 05/14/17 05/14/17 05:35 05:35 05:35 WBC 3.5 RBC 3.48 L Hgb 9.7 L Hct 29 L MCV 84 MCH 28 MCHC 33 RDW 18 H Plt Count 411 MPV 7 L Neut % (Auto) 78.6 Lymph % (Auto) 8.0 L Archuleta % (Auto) 13.2 H Eos % (Auto) 0 Baso % (Auto) 0.2 Absolute Neuts (auto) 2.8 Absolute Lymphs (auto) 0.3 L Absolute Monos (auto) 0.5 Absolute Eos (auto) 0 Absolute Basos (auto) 0 Absolute Nucleated RBC 0 Nucleated RBC % 0 INR (Anticoag Therapy) 2.73 H Patient Temperature ABG pH ABG pCO2 ABG pO2 ABG HCO3 ABG O2 Saturation ABG Base Excess Respiration Rate O2 Delivery Device Ventilator Type Vent Mode FiO2 Inspiratory Time PEEP Pressure Support Pressure Control EPAP IPAP BiPAP Sodium 132 L Potassium 3.8 Chloride 97 L Carbon Dioxide 30 Anion Gap 5 BUN 14 Creatinine 0.46 L Est GFR ( Amer) 232.8 Est GFR (Non-Af Amer) 181.0 BUN/Creatinine Ratio 30.4 H Glucose 168 H Calcium 8.8 C-Reactive Protein 32.11 H Procalcitonin Vancomycin Trough 14.6 05/14/17 05/14/17 05:35 06:25 WBC RBC Hgb Hct MCV MCH MCHC RDW Plt Count MPV Neut % (Auto) Lymph % (Auto) Archuleta % (Auto) Eos % (Auto) Baso % (Auto) Absolute Neuts (auto) Absolute Lymphs (auto) Absolute Monos (auto) Absolute Eos (auto) Absolute Basos (auto) Absolute Nucleated RBC Nucleated RBC % INR (Anticoag Therapy) Patient Temperature Not Reportable ABG pH 7.41 ABG pCO2 48 H ABG pO2 82 ABG HCO3 28.9 ABG O2 Saturation 96.1 ABG Base Excess 5.1 H Respiration Rate Not Reportable O2 Delivery Device vapotherm Ventilator Type Not Reportable Vent Mode Not Reportable FiO2 40 Inspiratory Time Not Reportable PEEP Not Reportable Pressure Support Not Reportable Pressure Control Not Reportable EPAP Not Reportable IPAP Not Reportable BiPAP Not Reportable Sodium Potassium Chloride Carbon Dioxide Anion Gap BUN Creatinine Est GFR ( Amer) Est GFR (Non-Af Amer) BUN/Creatinine Ratio Glucose Calcium C-Reactive Protein Procalcitonin 0.1 Vancomycin Trough I/R: 71 y o m with multipls comorbidities with recurrent admissions recently a/ w worsening SOB, hypoxia being treated for acute COPD exacerbation Pt has required high flow, which is being tapered currently ABG reviewed, showed improvement in PO2 Pt reports improvement in breathing Will c/w prednisone taper Will taper FiO2 as tolerated Was started on Acyclovir for rash Is also on broad spectrum abx PT/OT
[2017-05-14] MEDS: Warfarin TAB(*) 2.5 MG PO SCH (18:19)
[2017-05-14] MEDS: Lactobacillus Acidophilu (GG)* 1 CAP CAP PO SCH (20:46)
[2017-05-14] MEDS: Atorvastatin* 20 MG TAB PO SCH (20:46)
[2017-05-15] MEDS: Albuterol/Ipratropium NEB.SOL* Albuterol 2.5 MG/Ipratropium 0.5 MG 3 ML INH SCH ×5 (00:50→20:17)
[2017-05-15] MEDS: methylPREDNISolone SOD 40 MG* 1 ML VIAL IV SCH ×3 (02:06→22:29)
[2017-05-15] MEDS: Albuterol 2.5 MG/3 ML NEB.SOL* (0.083%) INH PRN (03:22)
[2017-05-15] MEDS: Polyethylene Glycol 3350* 17 GM PACKET PO PRN (05:56)
[2017-05-15] MEDS: Vancomycin(*) 1,000 MG in NS 0.9% 250 ML* 250 ML IVPB SCH ×3 (05:56→23:19)
[2017-05-15 06:06] LABS: Hematocrit 27 % (42-52); Hemoglobin 8.8 g/dl (14.0-18.0); Mean Corpuscular HGB Conc 33 g/dl (31-36); Mean Corpuscular Hemoglobin 28 pg (27-31); Mean Corpuscular Volume 86 fL (80-94); Mean Platelet Volume 7 um3 (7.4-10.4); Red Blood Count 3.09 10^6/ul (4.0-5.4); Red Cell Distribution Width 18 % (10.5-15)
[2017-05-15 06:14] LABS: BUN/Creatinine Ratio 39.6 (8-20); Calcium 8.5 mg/dL (8.6-10.3); EGFR African American 197.7 (>60); EGFR Non-African American 153.7 (>60); Potassium 3.7 mmol/L (3.5-5.0)
[2017-05-15] MEDS: Cyclobenzaprine TAB* 10 MG PO PRN ×2 (06:45→22:35)
[2017-05-15] MEDS: Cholecalciferol TAB* 1000 UNITS PO SCH (07:19)
[2017-05-15] MEDS: Citalopram TAB* 10 MG PO SCH (07:19)
[2017-05-15] MEDS: Furosemide IV* 10 MG/ML VIAL (40 MG) IV SCH (07:19)
[2017-05-15] MEDS: Aspirin Low Dose CHEW TAB* 81 MG PO SCH (07:19)
[2017-05-15] MEDS: Montelukast Sodium TAB* 10 MG PO SCH (07:19)
[2017-05-15] MEDS: Potassium Chlor TAB* 20 MEQ TAB.ER PO SCH (07:19)
[2017-05-15] MEDS: Lactobacillus Acidophilu (GG)* 1 CAP CAP PO SCH ×2 (07:19→22:29)
[2017-05-15] MEDS: guaiFENesin ER TAB 600 MG PO SCH ×2 (07:19→22:29)
[2017-05-15] MEDS: Omeprazole CAP* 20 MG PO SCH ×2 (07:19→22:29)
[2017-05-15] MEDS: CMCS Voriconazole (NF) 50 MG TAB PO SCH ×2 (07:20→22:30)
[2017-05-15] MEDS: Cefepime(*) 1 GM in NS 0.9% 50 ML* 50 ML IVPB SCH ×2 (09:41→22:22)
--- NOTE | 2017-05-15 11:01 | PN ---
Progress Note - Progress Note Date of Service: 05/15/17 - Pulmonary f/u note Note: Pt seen and examined at bedside. No acute events o/n. Pt reports significant improvement in breathing today. Cough is improved, less productive. Was able to ambulate in room and anticipate to work with PT today.FiO2 requirements improving Active Medications Generic Name Dose Route Start Last Admin Trade Name Freq PRN Reason Stop Dose Admin Albuterol 2.5 mg 05/13/17 01:52 05/15/17 03:22 Ventolin 2.5 Mg/3 Ml Neb.Mariella* INH 2.5 mg Q2H PRN Administration SOB/WHEEZING Albuterol/Ipratropium 1 neb 05/13/17 07:00 05/15/17 10:41 Duoneb (Albuterol 2.5 Mg/Ipratropium 0.5 Mg) INH 1 neb [id number] AWAKE [facility] Administration Aspirin 81 mg 05/13/17 09:00 05/15/17 07:19 Aspirin Low Dose Tab* PO 81 mg DAILY [facility] Administration Atorvastatin Calcium 20 mg 05/12/17 21:00 05/14/17 20:46 Lipitor* PO 20 mg 2100 [facility] Administration Cholecalciferol 1,000 units 05/13/17 09:00 05/15/17 07:19 Vitamin D Tab* PO 1,000 units DAILY [facility] Administration Citalopram Hydrobromide 10 mg 05/15/17 09:00 05/15/17 07:19 Celexa Tab* PO 10 mg DAILY [facility] Administration Cyclobenzaprine HCl 10 mg 05/12/17 19:32 05/15/17 06:45 Flexeril Tab* PO 10 mg TID PRN Administration SPASMS Furosemide 40 mg 05/16/17 09:00 Lasix Tab* PO DAILY [facility] Guaifenesin 1,200 mg 05/12/17 21:00 05/15/17 07:19 Mucinex* PO 1,200 mg BID [facility] Administration Heparin Sodium (Porcine) 1 - 3 ml 05/14/17 18:00 05/15/17 06:44 Heparin Flush Picc/Ml/Cvc(*) FLUSH Not Given 0600,1800 [facility] Protocol Cefepime HCl 1 gm/ Sodium 50 mls @ 100 mls/hr 05/12/17 22:00 05/15/17 09:41 Chloride IVPB 100 mls/hr Q12H [facility] Administration Vancomycin HCl 1,000 mg/ 250 mls @ 166.667 mls/hr 05/13/17 06:00 05/15/17 05: 56 Sodium Chloride IVPB 166.667 mls/hr Q8H [facility] Administration Acyclovir Sodium 650 mg/ 113 mls @ 100 mls/hr 05/14/17 10:00 05/15/17 09:40 Sodium Chloride IVPB 100 mls/hr Q8H [facility] Administration Lactobacillus Rhamnosus 1 cap 05/14/17 21:00 05/15/17 07:19 Culturelle* PO 1 cap BID [facility] Administration Methylprednisolone Sodium Succinate 40 mg 05/14/17 10:00 05/15/17 09:40 Solu-Medrol 40 Mg IV 40 mg Q8H [facility] Administration Montelukast Sodium 10 mg 05/13/17 09:00 05/15/17 07:19 Singulair Tab* PO 10 mg DAILY [facility] Administration Omeprazole 20 mg 05/12/17 21:00 05/15/17 07:19 Prilosec Cap* PO 20 mg BID [facility] Administration Oxycodone/Acetaminophen 1 tab 05/12/17 19:32 Percocet 5/325 Tab* PO Q4H PRN PAIN Pharmacy Consult 1 note 05/12/17 21:27 Vancomycin Per Pharmacy* FOLLOW UP . PRN PER PROTOCOL Polyethylene Glycol/Electrolytes 17 gm 05/12/17 19:32 05/15/17 05:56 Miralax* PO 17 gm DAILY PRN Administration CONSTIPATION Potassium Chloride 20 meq 05/13/17 09:00 05/15/17 07:19 Klor Con Er Tab* PO 20 meq DAILY [facility] Administration Voriconazole 200 mg 05/12/17 22:00 05/15/17 07:20 Vfend (Nf) PO 200 mg BID [facility] Administration Warfarin Sodium 2.5 mg 05/12/17 23:00 05/14/17 18:19 Coumadin Tab(*) PO 2.5 mg DAILY@1700 [facility] Administration Protocol Vital Signs Temp Pulse Resp BP Pulse Ox 98.9 F 99 18 129/85 95 05/15/17 07:25 05/15/17 10:41 05/15/17 10:41 05/15/17 07:34 05/15/17 10:41 Gen: Sitting in chair in NAD, alert, awake, not using accessory muscles, in good spirits. Respiratory: Diminished air entry, no wheeze,crackles at lung bases bilaterally improved Cardiovascular: NL Sounds; No Murmurs; No JVD, RRR Abdominal: Bowel sounds present, no tenderness Extremities: 1+ bilateral LE edema, improved since admission Skin: clear vesicles on an erythematous base around his anterior leg and waist in dermatomal distribution Neurological: Alert and Oriented x 3, no focal defecits Laboratory Results - last 24 hr 05/15/17 05/15/17 05:35 05:35 WBC 4.0 RBC 3.09 L Hgb 8.8 L Hct 27 L MCV 86 MCH 28 MCHC 33 RDW 18 H Plt Count 372 MPV 7 L Neut % (Auto) 76.4 Lymph % (Auto) 5.1 L Payne % (Auto) 18.5 H Eos % (Auto) 0 Baso % (Auto) 0 Absolute Neuts (auto) 3.0 Absolute Lymphs (auto) 0.2 L Absolute Monos (auto) 0.7 Absolute Eos (auto) 0 Absolute Basos (auto) 0 Absolute Nucleated RBC 0 Nucleated RBC % 0 Sodium 134 Potassium 3.7 Chloride 101 Carbon Dioxide 31 Anion Gap 2 BUN 21 Creatinine 0.53 L Est GFR ( Amer) 197.7 Est GFR (Non-Af Amer) 153.7 BUN/Creatinine Ratio 39.6 H Glucose 189 H Calcium 8.5 L I/R: 71 y o m with multipls comorbidities with recurrent admissions recently a/ w worsening SOB, hypoxia being treated for acute COPD exacerbation Pt has required high flow, which is being tapered currently, transitioned to salter today Will taper FiO2 to maintain sats around 92% Will c/w prednisone taper, will lower to 40 mg q 12 today Was started on Acyclovir for rash On Voriconoazole for Aspergillosis On Coumadin for PE Is also on broad spectrum abx, will complete 7 day course PT/OT Might benefit from rehab Can be down graded to regular medical floor when bed available D/w Mateo Rodriguez NP
--- NOTE | 2017-05-15 12:52 | PN ---
Subjective Date of Service: 05/15/17 Interval History: Patient continues to report improvement. Cough is less productive. No dyspnea at rest, improved dyspnea with activity. Energy is good, he believes his exercise tolerance is improving. Denies new complaints. Objective Active Medications: Albuterol (Ventolin 2.5 Mg/3 Ml Neb.Mariella*) 2.5 mg INH Q2H PRN PRN Reason: SOB/WHEEZING Last Admin: 05/15/17 03:22 Dose: 2.5 mg Albuterol/Ipratropium (Duoneb (Albuterol 2.5 Mg/Ipratropium 0.5 Mg)) 1 neb INH [id number] AWAKE [facility] Last Admin: 05/15/17 10:41 Dose: 1 neb Aspirin (Aspirin Low Dose Tab*) 81 mg PO DAILY [facility] Last Admin: 05/15/17 07:19 Dose: 81 mg Atorvastatin Calcium (Lipitor*) 20 mg PO 2100 [facility] Last Admin: 05/14/17 20:46 Dose: 20 mg Cholecalciferol (Vitamin D Tab*) 1,000 units PO DAILY [facility] Last Admin: 05/15/17 07:19 Dose: 1,000 units Citalopram Hydrobromide (Celexa Tab*) 10 mg PO DAILY [facility] Last Admin: 05/15/17 07:19 Dose: 10 mg Cyclobenzaprine HCl (Flexeril Tab*) 10 mg PO TID PRN PRN Reason: SPASMS Last Admin: 05/15/17 06:45 Dose: 10 mg Furosemide (Lasix Tab*) 40 mg PO DAILY [facility] Guaifenesin (Mucinex*) 1,200 mg PO BID [facility] Last Admin: 05/15/17 07:19 Dose: 1,200 mg Heparin Sodium (Porcine) (Heparin Flush Picc/Ml/Cvc(*)) 1 - 3 ml FLUSH 0600, 1800 [facility] PRN Reason: Protocol Last Admin: 05/15/17 06:44 Dose: Not Given Cefepime HCl 1 gm/ Sodium (Chloride) 50 mls @ 100 mls/hr IVPB Q12H [facility] Last Admin: 05/15/17 09:41 Dose: 100 mls/hr Vancomycin HCl 1,000 mg/ (Sodium Chloride) 250 mls @ 166.667 mls/hr IVPB Q8H [facility] Last Admin: 05/15/17 05:56 Dose: 166.667 mls/hr Acyclovir Sodium 650 mg/ (Sodium Chloride) 113 mls @ 100 mls/hr IVPB Q8H [facility] Last Admin: 05/15/17 09:40 Dose: 100 mls/hr Lactobacillus Rhamnosus (Culturelle*) 1 cap PO BID [facility] Last Admin: 05/15/17 07:19 Dose: 1 cap Montelukast Sodium (Singulair Tab*) 10 mg PO DAILY [facility] Last Admin: 05/15/17 07:19 Dose: 10 mg Omeprazole (Prilosec Cap*) 20 mg PO BID [facility] Last Admin: 05/15/17 07:19 Dose: 20 mg Oxycodone/Acetaminophen (Percocet 5/325 Tab*) 1 tab PO Q4H PRN PRN Reason: PAIN Pharmacy Consult (Vancomycin Per Pharmacy*) 1 note FOLLOW UP . PRN PRN Reason: PER PROTOCOL Polyethylene Glycol/Electrolytes (Miralax*) 17 gm PO DAILY PRN PRN Reason: CONSTIPATION Last Admin: 05/15/17 05:56 Dose: 17 gm Potassium Chloride (Klor Con Er Tab*) 20 meq PO DAILY [facility] Last Admin: 05/15/17 07:19 Dose: 20 meq Voriconazole (Vfend (Nf)) 200 mg PO BID [facility] Last Admin: 05/15/17 07:20 Dose: 200 mg Warfarin Sodium (Coumadin Tab(*)) 2.5 mg PO DAILY@1700 [facility] PRN Reason: Protocol Last Admin: 05/14/17 18:19 Dose: 2.5 mg Vital Signs: Temp Pulse Resp BP Pulse Ox 99.1 F 99 18 129/85 95 05/15/17 12:00 05/15/17 10:41 05/15/17 10:41 05/15/17 07:34 05/15/17 10:41 Oxygen Devices in Use Now: Nasal Cannula - 10L Appearance: Well appearing elderly gentleman in NAD Respiratory: Symmetrical Chest Expansion and Respiratory Effort, - - few crackles at bases, no wheezing or rhonchi Cardiovascular: NL Sounds; No Murmurs; No JVD, RRR Extremities: - - 1-2+ LE edema Skin: - - rash was not re-examined today Neurological: Alert and Oriented x 3 Result Diagrams: 05/15/17 05:35 05/15/17 05:35 Microbiology and Other Data: Microbiology 05/13/17 16:57 Aerobic Blood Culture - Preliminary Blood Venous No Growth Day 1 Anaerobic Blood Culture - Preliminary No Growth Day 1 05/14/17 09:00 Gram Stain - Final Sputum Induced Diagnostic Imaging: CXR - bilateral basilar infiltrate L>R improved over 04/19 Assess/Plan/Problems-Billing Assessment: This is a 71 yo gentleman with severe COPD, pulm aspergillosis, recent PE, CAD, HTN, HLD and pafib who presents with increasing dyspnea after recent hospitalization for MSSA PNA. Admitted to ICU for high flow O2. - Patient Problems (1) Acute and chronic respiratory failure with hypoxia Comment: Improving, titrated down to 8L NC Secondary to COPD exacerbation and suspected HCAP Sputum pending, blood cultures neg at this time Appreciate pulm consult Cont Cefepime and Vanco for broad spectrum coverage Cont voriconazole for aspergillosis suppression Cont Solumedrol, with continuing taper Cont inhaled therapies, deliver nebulized solution via metaneb (2) Acute diastolic CHF (congestive heart failure) Comment: Improving with IV Lasix Transition to oral Lasix for tomorrow Recent echo shows perserved EF with some diastolic dysfunction Also element of cor pulmonale (3) Herpes zoster Comment: Rash over his L hip is concerning for herpes zoster Vesicular fluid sent for PCR, results are still pending Empirically started acyclovir IV due to immunocompromised status with chronic steroids and acute illness (4) Hyponatremia Comment: Resolved Likely secondary to hypervolemia from HF exacerbation Cont diuresis with IV Lasix (5) History of pulmonary embolism Comment: Therapeutic INR Unlikely to be contributing to acute presentation (6) Atrial fibrillation Comment: Hx of paroxysmal afib. Currently in sinus rhythm. Anticoagulated with warfarin. (7) HLD (hyperlipidemia) Comment: Continue atorvastatin. (8) HTN (hypertension) Comment: Normotensive (9) Full code status (10) DVT prophylaxis Comment: Coumadin with therapeutic INR Status and Disposition: Inpatient. Transfer to medical unit, no longer requires ICU level care. Anticipate prolonged hospital stay
[2017-05-15] MEDS: Warfarin TAB(*) 2.5 MG PO SCH (17:52)
[2017-05-15 19:18] LABS: HS/VZ Source RASH LEFT HIP; Varicella Zoster Result Positive (Negative); Varicella Zoster Source RASH LEFT HIP
[2017-05-15] MEDS: Atorvastatin* 20 MG TAB PO SCH (22:29)
[2017-05-16] MEDS: Albuterol/Ipratropium NEB.SOL* Albuterol 2.5 MG/Ipratropium 0.5 MG 3 ML INH SCH ×4 (01:05→20:00)
[2017-05-16] MEDS: Vancomycin(*) 1,000 MG in NS 0.9% 250 ML* 250 ML IVPB SCH (06:02)
[2017-05-16] MEDS: Aspirin Low Dose CHEW TAB* 81 MG PO SCH (08:06)
[2017-05-16] MEDS: Cholecalciferol TAB* 1000 UNITS PO SCH (08:07)
[2017-05-16] MEDS: Furosemide TAB* 40 MG PO SCH (08:07)
[2017-05-16] MEDS: Citalopram TAB* 10 MG PO SCH (08:07)
[2017-05-16] MEDS: guaiFENesin ER TAB 600 MG PO SCH ×2 (08:08→20:32)
[2017-05-16] MEDS: Montelukast Sodium TAB* 10 MG PO SCH (08:09)
[2017-05-16] MEDS: Lactobacillus Acidophilu (GG)* 1 CAP CAP PO SCH ×2 (08:09→20:33)
[2017-05-16] MEDS: Omeprazole CAP* 20 MG PO SCH ×2 (08:09→20:33)
[2017-05-16] MEDS: CMCS Voriconazole (NF) 50 MG TAB PO SCH ×2 (08:10→20:33)
[2017-05-16] MEDS: Potassium Chlor TAB* 20 MEQ TAB.ER PO SCH (08:10)
--- NOTE | 2017-05-16 08:21 | PN ---
Progress Note - Progress Note Date of Service: 05/16/17 - Pulm f/u note Note: Pt seen and examined at bedside. Pt reported episode of cough and SOB last night resolved quickly. He also reports that he caught muscle while coughing. Pt reports significant improvement in breathing today. Cough is less productive. Active Medications Generic Name Dose Route Start Last Admin Trade Name Freq PRN Reason Stop Dose Admin Albuterol 2.5 mg 05/13/17 01:52 05/15/17 03:22 Ventolin 2.5 Mg/3 Ml Neb.Mariella* INH 2.5 mg Q2H PRN Administration SOB/WHEEZING Albuterol/Ipratropium 1 neb 05/13/17 07:00 05/16/17 07:25 Duoneb (Albuterol 2.5 Mg/Ipratropium 0.5 Mg) INH 1 neb [id number] AWAKE SHAUNA Administration Aspirin 81 mg 05/13/17 09:00 05/16/17 08:06 Aspirin Low Dose Tab* PO 81 mg DAILY SHAUNA Administration Atorvastatin Calcium 20 mg 05/12/17 21:00 05/15/17 22:29 Lipitor* PO 20 mg 2100 SHAUNA Administration Cholecalciferol 1,000 units 05/13/17 09:00 05/16/17 08:07 Vitamin D Tab* PO 1,000 units DAILY SHAUNA Administration Citalopram Hydrobromide 10 mg 05/15/17 09:00 05/16/17 08:07 Celexa Tab* PO 10 mg DAILY SHAUNA Administration Cyclobenzaprine HCl 10 mg 05/12/17 19:32 05/15/17 22:35 Flexeril Tab* PO 10 mg TID PRN Administration SPASMS Furosemide 40 mg 05/16/17 09:00 05/16/17 08:07 Lasix Tab* PO 40 mg DAILY SHAUNA Administration Guaifenesin 1,200 mg 05/12/17 21:00 05/16/17 08:08 Mucinex* PO 1,200 mg BID SHAUNA Administration Heparin Sodium (Porcine) 1 - 3 ml 05/14/17 18:00 05/16/17 05:24 Heparin Flush Picc/Ml/Cvc(*) FLUSH Not Given 0600,1800 SHAUNA Protocol Cefepime HCl 1 gm/ Sodium 50 mls @ 100 mls/hr 05/12/17 22:00 05/15/17 22:22 Chloride IVPB 100 mls/hr Q12H SHAUNA Administration Acyclovir Sodium 650 mg/ 113 mls @ 100 mls/hr 05/14/17 10:00 05/16/17 02:05 Sodium Chloride IVPB 100 mls/hr Q8H SHAUNA Administration Lactobacillus Rhamnosus 1 cap 05/14/17 21:00 05/16/17 08:09 Culturelle* PO 1 cap BID SHAUNA Administration Methylprednisolone Sodium Succinate 40 mg 05/15/17 22:00 05/15/17 22:29 Solu-Medrol 40 Mg IV 40 mg Q12H SHAUNA Administration Montelukast Sodium 10 mg 05/13/17 09:00 05/16/17 08:09 Singulair Tab* PO 10 mg DAILY SHAUNA Administration Omeprazole 20 mg 05/12/17 21:00 05/16/17 08:09 Prilosec Cap* PO 20 mg BID SHAUNA Administration Oxycodone/Acetaminophen 1 tab 05/12/17 19:32 Percocet 5/325 Tab* PO Q4H PRN PAIN Polyethylene Glycol/Electrolytes 17 gm 05/12/17 19:32 05/15/17 05:56 Miralax* PO 17 gm DAILY PRN Administration CONSTIPATION Potassium Chloride 20 meq 05/13/17 09:00 05/16/17 08:10 Klor Con Er Tab* PO 20 meq DAILY SHAUNA Administration Voriconazole 200 mg 05/12/17 22:00 05/16/17 08:10 Vfend (Nf) PO 200 mg BID SHAUNA Administration Warfarin Sodium 2.5 mg 05/17/17 17:00 Coumadin Tab(*) PO DAILY@1700 [facility] Protocol Vital Signs Temp Pulse Resp BP Pulse Ox 98.1 F 80 17 131/72 99 05/16/17 03:17 05/16/17 07:27 05/16/17 07:27 05/16/17 03:17 05/16/17 07:27 Physical exam: Gen: Sitting in chair in NAD, alert, awake, not using accessory muscles, appears comfortable Respiratory: Diminished air entry, no wheeze Cardiovascular: S, S2+, No Murmurs, No JVD Abdominal: Bowel sounds present, no tenderness, not distended Extremities: 1+ bilateral LE edema, improving Skin: clear vesicles on an erythematous base around his anterior leg and waist in dermatomal distribution, scabbing Neurological: Alert and Oriented x 3, no focal defecits Laboratory Results - last 24 hr 05/14/17 05/16/17 10:49 05:34 INR (Anticoag Therapy) 3.77 H HSV I DNA PCR Negative HSV II DNA PCR Negative Dermal HSV & VZV Source Rash left hip Varicella-Zoster Source Rash left hip VZV DNA (PCR) Positive I/R: 71 y o m with multipls comorbidities with recurrent admissions recently a/ w worsening SOB, hypoxia being treated for acute COPD exacerbation Pt has required high flow, transitioned to nasal cannula Will taper FiO2 to maintain sats around 92%. He is currently on 5L, O2 sat 98% Will c/w prednisone taper, will lower to 40 mg q daily to avoid myopathy Sputum cx grew Pseudomonas, currently on Cefepime, susceptibilities pending Was started on Acyclovir for rash On Voriconoazole for Aspergillosis On Coumadin for PE, INR therapeutic PT/OT Might benefit from rehab
--- NOTE | 2017-05-16 09:56 | PN ---
Subjective Date of Service: 05/16/17 Interval History: Patient reports continued improvement in dyspnea. Occasional cough. No c/o pain, n/v. LE edema improving. Objective Active Medications: Albuterol (Ventolin 2.5 Mg/3 Ml Neb.Mariella*) 2.5 mg INH Q2H PRN PRN Reason: SOB/WHEEZING Last Admin: 05/15/17 03:22 Dose: 2.5 mg Albuterol/Ipratropium (Duoneb (Albuterol 2.5 Mg/Ipratropium 0.5 Mg)) 1 neb INH [id number] AWAKE [facility] Last Admin: 05/16/17 07:25 Dose: 1 neb Aspirin (Aspirin Low Dose Tab*) 81 mg PO DAILY [facility] Last Admin: 05/16/17 08:06 Dose: 81 mg Atorvastatin Calcium (Lipitor*) 20 mg PO 2100 [facility] Last Admin: 05/15/17 22:29 Dose: 20 mg Cholecalciferol (Vitamin D Tab*) 1,000 units PO DAILY [facility] Last Admin: 05/16/17 08:07 Dose: 1,000 units Citalopram Hydrobromide (Celexa Tab*) 10 mg PO DAILY [facility] Last Admin: 05/16/17 08:07 Dose: 10 mg Cyclobenzaprine HCl (Flexeril Tab*) 10 mg PO Q6H PRN PRN Reason: SPASMS Furosemide (Lasix Tab*) 40 mg PO DAILY [facility] Last Admin: 05/16/17 08:07 Dose: 40 mg Guaifenesin (Mucinex*) 1,200 mg PO BID [facility] Last Admin: 05/16/17 08:08 Dose: 1,200 mg Heparin Sodium (Porcine) (Heparin Flush Picc/Ml/Cvc(*)) 1 - 3 ml FLUSH 0600, 1800 SHAUNA PRN Reason: Protocol Last Admin: 05/16/17 05:24 Dose: Not Given Cefepime HCl 1 gm/ Sodium (Chloride) 50 mls @ 100 mls/hr IVPB Q12H [facility] Last Admin: 05/15/17 22:22 Dose: 100 mls/hr Acyclovir Sodium 650 mg/ (Sodium Chloride) 113 mls @ 100 mls/hr IVPB Q8H [facility] Last Admin: 05/16/17 09:30 Dose: 100 mls/hr Lactobacillus Rhamnosus (Culturelle*) 1 cap PO BID [facility] Last Admin: 05/16/17 08:09 Dose: 1 cap Methylprednisolone Sodium Succinate (Solu-Medrol 40 Mg) 40 mg IV Q12H [facility] Stop: 05/16/17 12:00 Last Admin: 05/15/17 22:29 Dose: 40 mg Montelukast Sodium (Singulair Tab*) 10 mg PO DAILY [facility] Last Admin: 05/16/17 08:09 Dose: 10 mg Omeprazole (Prilosec Cap*) 20 mg PO BID [facility] Last Admin: 05/16/17 08:09 Dose: 20 mg Oxycodone/Acetaminophen (Percocet 5/325 Tab*) 1 tab PO Q4H PRN PRN Reason: PAIN Polyethylene Glycol/Electrolytes (Miralax*) 17 gm PO DAILY PRN PRN Reason: CONSTIPATION Last Admin: 05/15/17 05:56 Dose: 17 gm Potassium Chloride (Klor Con Er Tab*) 20 meq PO DAILY [facility] Last Admin: 05/16/17 08:10 Dose: 20 meq Prednisone (Deltasone Tab*) 40 mg PO DAILY [facility] Voriconazole (Vfend (Nf)) 200 mg PO BID [facility] Last Admin: 05/16/17 08:10 Dose: 200 mg Warfarin Sodium (Coumadin Tab(*)) 2.5 mg PO DAILY@1700 [facility] PRN Reason: Protocol Vital Signs: Temp Pulse Resp BP Pulse Ox 98.1 F 80 17 131/72 99 05/16/17 03:17 05/16/17 07:27 05/16/17 07:27 05/16/17 03:17 05/16/17 07:27 Oxygen Devices in Use Now: Nasal Cannula - 10L Appearance: Elderly gentleman in NAD accompanied by his . Appears relatively well. Respiratory: Symmetrical Chest Expansion and Respiratory Effort, - - crackles and rhonchi at lung bases Cardiovascular: NL Sounds; No Murmurs; No JVD, RRR Abdominal: NL Sounds; No Tenderness; No Distention Extremities: - - 1-2+ LE edema Skin: - - rash over the L hip not re-examined Neurological: Alert and Oriented x 3 Result Diagrams: 05/15/17 05:35 05/15/17 05:35 Microbiology and Other Data: Microbiology 05/14/17 09:00 Gram Stain - Final Sputum Induced Sputum Culture - Preliminary Pseudomonas Aeruginosa Normal Cinthia 05/12/17 18:00 Aerobic Blood Culture - Preliminary Blood Venous No Growth Day 3 Anaerobic Blood Culture - Preliminary No Growth Day 3 Blood Culture - Final 05/13/17 16:57 Aerobic Blood Culture - Preliminary Blood Venous No Growth Day 2 Anaerobic Blood Culture - Preliminary No Growth Day 2 Blood Culture - Final Diagnostic Imaging: CXR - bilateral basilar infiltrate L>R improved over 04/19 Assess/Plan/Problems-Billing Assessment: This is a 71 yo gentleman with severe COPD, pulm aspergillosis, recent PE, CAD, HTN, HLD and pafib who presents with increasing dyspnea after recent hospitalization for MSSA PNA. Admitted to ICU for high flow O2, now on medical floor. - Patient Problems (1) Acute and chronic respiratory failure with hypoxia Comment: Secondary to COPD exacerbation and suspected HCAP Improving, titrated down to 5L NC with instructions to RT to continue to titrate to saturations of ~92% Sputum isolated Pseudomonas, sensitivities pending Blood cultures neg at this time Appreciate pulm consult Cont Cefepime, but Vanco stopped now that Pseudomonas has been ID'd Cont voriconazole for aspergillosis suppression Cont corticosteroids with tapering doses Cont inhaled therapies, deliver nebulized solution via metaneb (2) Acute diastolic CHF (congestive heart failure) Comment: Improving Now on oral Lasix Recent echo shows perserved EF with some diastolic dysfunction Also element of cor pulmonale (3) Herpes zoster Comment: VZV PCR positive from vesicular fluid Cont IV acyclovir due to immunocompromised status with chronic steroids and acute illness, will need total of 7d of therapy (4) Hyponatremia Comment: Resolved Likely secondary to hypervolemia from HF exacerbation Cont diuresis with IV Lasix (5) History of pulmonary embolism Comment: Therapeutic INR Unlikely to be contributing to acute presentation (6) Atrial fibrillation Comment: Hx of paroxysmal afib. Currently in sinus rhythm. Anticoagulated with warfarin. (7) HLD (hyperlipidemia) Comment: Continue atorvastatin. (8) HTN (hypertension) Comment: Normotensive (9) Full code status (10) DVT prophylaxis Comment: Coumadin with therapeutic INR Status and Disposition: Inpatient. Anticipate prolonged hospital stay
[2017-05-16] MEDS: methylPREDNISolone SOD 40 MG* 1 ML VIAL IV SCH (10:40)
[2017-05-16] MEDS: Cefepime(*) 1 GM in NS 0.9% 50 ML* 50 ML IVPB SCH ×2 (10:40→20:44)
[2017-05-16] MEDS: Polyethylene Glycol 3350* 17 GM PACKET PO PRN (14:35)
[2017-05-16] MEDS: Atorvastatin* 20 MG TAB PO SCH (20:32)
[2017-05-16] MEDS: Cyclobenzaprine TAB* 10 MG PO PRN (20:32)
--- NOTE | 2017-05-16 22:14 | PN ---
Progress Note - Progress Note Date of Service: 05/16/17 Note: Nursing called reporting hypoxia to the low 80s if not on metaneb. RT had evaluated. Upon my arrival Mr Celis is sitting on the edge of the bed objectively mildly SOB, but reporting feeling reasonably well. He denies chest pain, reports productive cough. He completed a metaneb, set it down with an saO2 in the mid-90s and immediately dropped to the high 80s drifting more slowly to the low 80s. Initially decision was made to transfer to ICU for VapoTherm, but upon re-evaluation via RT it was noted his Salter was plugged into a bubbler whose line had occluded effectively leaving him on room air. As such, this was corrected with resulting saO2 increasing to the mid-90s & transfer was cancelled. LUNGS: diminished B, poor to fair aeration, no fine cellophane crackles, mild accessory muscle use CV: RR/RR, no JVD abdomen: SNTND assessment: plan hypoxia acutely 2nd occluded secondary line complicating COPD/CHF : air line corrected with good result : continue current management otherwise
[2017-05-17] MEDS: Albuterol/Ipratropium NEB.SOL* Albuterol 2.5 MG/Ipratropium 0.5 MG 3 ML INH SCH ×4 (00:30→19:02)
[2017-05-17] MEDS: Cholecalciferol TAB* 1000 UNITS PO SCH (08:10)
[2017-05-17] MEDS: Citalopram TAB* 10 MG PO SCH (08:11)
[2017-05-17] MEDS: Furosemide TAB* 40 MG PO SCH ×2 (08:11→15:18)
[2017-05-17] MEDS: guaiFENesin ER TAB 600 MG PO SCH ×2 (08:11→21:03)
[2017-05-17] MEDS: Potassium Chlor TAB* 20 MEQ TAB.ER PO SCH (08:12)
[2017-05-17] MEDS: Montelukast Sodium TAB* 10 MG PO SCH (08:12)
[2017-05-17] MEDS: Omeprazole CAP* 20 MG PO SCH ×2 (08:12→21:04)
[2017-05-17] MEDS: predniSONE TAB* 20 MG PO SCH (08:13)
[2017-05-17] MEDS: Lactobacillus Acidophilu (GG)* 1 CAP CAP PO SCH ×2 (08:15→21:03)
[2017-05-17] MEDS: CMCS Voriconazole (NF) 50 MG TAB PO SCH ×2 (08:15→21:03)
[2017-05-17] MEDS: Aspirin Low Dose CHEW TAB* 81 MG PO SCH (08:15)
--- NOTE | 2017-05-17 09:38 | PN ---
Subjective Date of Service: 05/17/17 Interval History: Patient had sudden onset of SOB and hypoxia overnight, responded to metaneb treatment. O2 supply malfunction identified and he is now comfortable and O2 saturations have returned to normal. Other than fatigue from the episode overnight he offers no new concerns Objective Active Medications: Albuterol (Ventolin 2.5 Mg/3 Ml Neb.Mariella*) 2.5 mg INH Q2H PRN PRN Reason: SOB/WHEEZING Last Admin: 05/15/17 03:22 Dose: 2.5 mg Albuterol/Ipratropium (Duoneb (Albuterol 2.5 Mg/Ipratropium 0.5 Mg)) 1 neb INH [id number] AWAKE [facility] Last Admin: 05/17/17 07:50 Dose: 1 neb Aspirin (Aspirin Low Dose Tab*) 81 mg PO DAILY [facility] Last Admin: 05/17/17 08:15 Dose: 81 mg Atorvastatin Calcium (Lipitor*) 20 mg PO 2100 [facility] Last Admin: 05/16/17 20:32 Dose: 20 mg Cholecalciferol (Vitamin D Tab*) 1,000 units PO DAILY SHAUNA Last Admin: 05/17/17 08:10 Dose: 1,000 units Citalopram Hydrobromide (Celexa Tab*) 10 mg PO DAILY [facility] Last Admin: 05/17/17 08:11 Dose: 10 mg Cyclobenzaprine HCl (Flexeril Tab*) 10 mg PO Q6H PRN PRN Reason: SPASMS Last Admin: 05/16/17 20:32 Dose: 10 mg Furosemide (Lasix Tab*) 40 mg PO DAILY [facility] Last Admin: 05/17/17 08:11 Dose: 40 mg Guaifenesin (Mucinex*) 1,200 mg PO BID SHAUNA Last Admin: 05/17/17 08:11 Dose: 1,200 mg Heparin Sodium (Porcine) (Heparin Flush Picc/Ml/Cvc(*)) 1 - 3 ml FLUSH 0600, 1800 SHAUNA PRN Reason: Protocol Last Admin: 05/17/17 06:00 Dose: 1 ml Cefepime HCl 1 gm/ Sodium (Chloride) 50 mls @ 100 mls/hr IVPB Q12H SHAUNA Last Admin: 05/16/17 20:44 Dose: 100 mls/hr Acyclovir Sodium 650 mg/ (Sodium Chloride) 113 mls @ 100 mls/hr IVPB Q8H [facility] Last Admin: 05/17/17 01:35 Dose: 100 mls/hr Lactobacillus Rhamnosus (Culturelle*) 1 cap PO BID [facility] Last Admin: 05/17/17 08:15 Dose: 1 cap Montelukast Sodium (Singulair Tab*) 10 mg PO DAILY [facility] Last Admin: 05/17/17 08:12 Dose: 10 mg Omeprazole (Prilosec Cap*) 20 mg PO BID [facility] Last Admin: 05/17/17 08:12 Dose: 20 mg Oxycodone/Acetaminophen (Percocet 5/325 Tab*) 1 tab PO Q4H PRN PRN Reason: PAIN Polyethylene Glycol/Electrolytes (Miralax*) 17 gm PO DAILY PRN PRN Reason: CONSTIPATION Last Admin: 05/16/17 14:35 Dose: 17 gm Potassium Chloride (Klor Con Er Tab*) 20 meq PO DAILY [facility] Last Admin: 05/17/17 08:12 Dose: 20 meq Prednisone (Deltasone Tab*) 40 mg PO DAILY [facility] Last Admin: 05/17/17 08:13 Dose: 40 mg Voriconazole (Vfend (Nf)) 200 mg PO BID [facility] Last Admin: 05/17/17 08:15 Dose: 200 mg Warfarin Sodium (Coumadin Tab(*)) 2.5 mg PO DAILY@1700 [facility] PRN Reason: Protocol Vital Signs: Temp Pulse Resp BP Pulse Ox 98.5 F 78 16 143/68 99 05/17/17 07:42 05/17/17 07:54 05/17/17 08:00 05/17/17 07:42 05/17/17 08:00 Oxygen Devices in Use Now: Nasal Cannula Appearance: Relatively well appearing, in NAD Respiratory: Symmetrical Chest Expansion and Respiratory Effort, - - faint wheeze in RLL, otherwise clear Cardiovascular: NL Sounds; No Murmurs; No JVD, RRR Extremities: - - 2+ LE edema Neurological: Alert and Oriented x 3 Result Diagrams: 05/15/17 05:35 05/15/17 05:35 Microbiology and Other Data: Microbiology 05/14/17 09:00 Gram Stain - Final Sputum Induced Sputum Culture - Preliminary Pseudomonas Aeruginosa Normal Cinthia 05/12/17 18:00 Aerobic Blood Culture - Preliminary Blood Venous No Growth Day 3 Anaerobic Blood Culture - Preliminary No Growth Day 3 Blood Culture - Final 05/13/17 16:57 Aerobic Blood Culture - Preliminary Blood Venous No Growth Day 2 Anaerobic Blood Culture - Preliminary No Growth Day 2 Blood Culture - Final Diagnostic Imaging: CXR - bilateral basilar infiltrate L>R improved over 04/19 Assess/Plan/Problems-Billing Assessment: This is a 71 yo gentleman with severe COPD, pulm aspergillosis, recent PE, CAD, HTN, HLD and pafib who presents with increasing dyspnea after recent hospitalization for MSSA PNA. Admitted to ICU for high flow O2, now on medical floor. - Patient Problems (1) Acute and chronic respiratory failure with hypoxia Comment: Secondary to COPD exacerbation and suspected HCAP Improving, acute hypoxia overnight due to O2 supply malfunction but now asx Sputum isolated Pseudomonas, C&S show good sensitivities to quinolones which gives us an oral option Blood cultures neg at this time Appreciate pulm consult Cont Cefepime, Vanco stopped, can transition to Levaquin at discharge Cont voriconazole for aspergillosis suppression Cont corticosteroids with tapering doses Cont inhaled therapies, deliver nebulized solution via metaneb (2) Acute diastolic CHF (congestive heart failure) Comment: Some reaccumulation of LE edema since switching back to home dose of Lasix Increase Lasix to 40mg bid Recent echo shows perserved EF with some diastolic dysfunction Also element of cor pulmonale (3) Herpes zoster Comment: VZV PCR positive from vesicular fluid Cont IV acyclovir due to immunocompromised status with chronic steroids and acute illness, will need total of 7d of therapy (4) Hyponatremia Comment: Resolved Likely secondary to hypervolemia from HF exacerbation Cont diuresis (5) History of pulmonary embolism Comment: Therapeutic INR Unlikely to be contributing to acute presentation (6) Atrial fibrillation Comment: Hx of paroxysmal afib. Currently in sinus rhythm. Anticoagulated with warfarin. (7) HLD (hyperlipidemia) Comment: Continue atorvastatin. (8) HTN (hypertension) Comment: Normotensive (9) Full code status (10) DVT prophylaxis Comment: Coumadin with therapeutic INR Status and Disposition: Inpatient. Anticipate readiness for dc tomorrow to [facility].
[2017-05-17 09:44] LABS: BUN/Creatinine Ratio 43.8 (8-20); Blood Urea Nitrogen 21 mg/dL (6-24); CO2 Carbon Dioxide 40 mmol/L (22-32); Calcium 8.7 mg/dL (8.6-10.3); Chloride 94 mmol/L (101-111); EGFR African American 221.6 (>60); EGFR Non-African American 172.3 (>60); Glucose 174 mg/dL (70-100); Potassium 3.7 mmol/L (3.5-5.0); Sodium 134 mmol/L (133-145)
[2017-05-17] MEDS: Polyethylene Glycol 3350* 17 GM PACKET PO PRN (09:44)
--- NOTE | 2017-05-17 10:01 | RAD ---
Indication: Hypoxia, on oxygen at home. Chronic obstructive pulmonary disease. Comparison: May 12, 2017 chest radiograph and April 14, 2017 CT. Technique: Upright AP 0640 hours Report: Elevated lung volumes and both diffuse mild prominence of the interstitial markings and patchy rarefaction of the mid to upper lung zone interstitial markings. Bibasilar airspace consolidation without change compared with the May 12, 2017 exam or gross change compared with the April 14, 2017 CT. Probable small subpulmonic pleural effusions. Negative for pneumothorax. Negative for cardiomegaly. Unremarkable central pulmonary vasculature. IMPRESSION: Persistent bibasilar airspace consolidation concerning for pneumonia. Probable small pleural effusions similar to the prior exams.
[2017-05-17] MEDS: Cefepime(*) 1 GM in NS 0.9% 50 ML* 50 ML IVPB SCH ×2 (10:39→22:03)
[2017-05-17] MEDS: Cyclobenzaprine TAB* 10 MG PO PRN (11:30)
--- NOTE | 2017-05-17 12:01 | ED ---
Dipti Mckeon Alfonso, scribed for Nithin Slater MD on 05/12/17 at 1718 . Shortness of Breath - HPI Summary HPI Summary: This patient is a 71 year old M BIBA to [facility] accompanied by family with a chief complaint of SOB since 3 days ago. The SOB became gradually worse today. The patient rates the pain 0/10 in severity. Symptoms aggravated by nothing. Patient reports chills, productive cough (clear phlegm), rash (erythematous and sore with a previous diagnosis of shingles per ), and calf swelling. Patient denies weight gain, fever, and diaphoresis. He was admitted to [facility] from 04/07/17 to 04/23/17 with primary diagnoses of 1. Acute on chronic respiratory failure with hypoxia. 2. Methicillin-resistant Staphylococcus aureus/ Stenotrophomonas maltophilia pneumonia. 3. Acute diastolic congestive heart failure exacerbation. 4. Hyponatremia, likely associated with his pulmonary processes. 5. Cor pulmonale. 6. Pulmonary embolism. He has been sleeping in a recliner. PMHx includes COPD, PE, CHF, CAD, and HTN. - History of Current Complaint Time Seen by Provider: 05/12/17 17:11 Hx Obtained From: Patient Onset/Duration: Gradual Onset, Lasting Days - 3, Worse Since - today Current Severity: Moderate Aggrevating Factors: Nothing Associated Signs & Symptoms: Cough (Productive), Chills, Calf Pain/Swelling Related History: Similar Episode - Allergy/Home Medications Allergies/Adverse Reactions: Allergies Allergy/AdvReac Type Severity Reaction Status Date / Time Adhesive Tape [Plastic Tape] Allergy Intermediate Bleeding Verified 03/31/17 16: 39 Simvastatin Allergy See Comment Verified 03/31/17 16:39 PMH/Surg Hx/FS Hx/Imm Hx Endocrine/Hematology History: Reports: Hx Anemia Denies: Hx Diabetes, Hx Thyroid Disease Cardiovascular History: Reports: Hx Cardiomegaly, Hx Congestive Heart Failure, Hx Coronary Artery Disease, Hx Hypercholesterolemia, Hx Hypertension, Other Cardiovascular Problems/Disorders - Afib Denies: Hx Pacemaker/ICD Respiratory History: Reports: Hx Asthma, Hx Chronic Obstructive Pulmonary Disease (COPD) - chronic resp failure, 2L O2 at home, Hx Pneumonia, Hx Pulmonary Embolism, Other Respiratory Problems/Disorders - COPD GI History: Reports: Hx Gastrointestinal Bleed - December 2016 Denies: Hx Ulcer History: Reports: Other Problems/Disorders - prostatectomy Denies: Hx Dialysis Musculoskeletal History: Reports: Hx Orthopedic Injury - broken left ankle ( many years ago), Other Musculoskeletal History - rotator cuff surgery Denies: Hx Back Problems Sensory History: Reports: Hx Cataracts, Hx Contacts or Glasses Denies: Hx Hearing Aid, Hx Hearing Problem Opthamlomology History: Reports: Hx Cataracts, Hx Contacts or Glasses Neurological History: Denies: Hx Dementia, Hx Seizures Psychiatric History: Denies: Hx Panic Disorder - Cancer History Cancer Type, Location and Year: PROSTATE - Surgical History Surgery Procedure, Year, and Place: PROSTATECTOMY,TONSILLECTOMY; CARDIAC CATH- - NO STENTS PLACED Hx Anesthesia Reactions: No Infectious Disease History: No Infectious Disease History: Denies: Hx Clostridium Difficile, Hx Hepatitis, Hx Human Immunodeficiency Virus (HIV), Hx of Known/Suspected MRSA, Hx Shingles, Hx Tuberculosis, Hx Known/ Suspected VRE, Hx Known/Suspected VRSA, History Other Infectious Disease, Traveled Outside the [place] in Last 30 Days - Family History Known Family History: Positive: Cardiac Disease, Hypertension, Respiratory Disease - COPD - Social History Alcohol Use: None Hx Substance Use: No Substance Use Type: Reports: None Hx Tobacco Use: No Smoking Status (MU): Former Smoker Type: Cigarettes Amount Used/How Often: 30 +years Review of Systems Positive: Chills. Negative: Fever Negative: Erythema Negative: Chest Pain Positive: Shortness Of Breath, Cough - Productive Negative: Abdominal Pain, Vomiting, Nausea Negative: dysuria, hematuria Positive: Edema, Other - Negative weight gain. Negative: Myalgia Positive: Rash Neurological: Other - Negative dizziness All Other Systems Reviewed And Are Negative: Yes Physical Exam Triage Information Reviewed: Yes Vital Signs On Initial Exam: Initial Vitals Temp Pulse Resp BP Pulse Ox 100.1 F 93 24 139/60 100 05/12/17 16:53 05/12/17 16:53 05/12/17 16:53 05/12/17 16:53 05/12/17 16:53 Vital Signs Reviewed: Yes Appearance: Positive: Well-Appearing, No Pain Distress, Well-Nourished Skin: Positive: Warm, Dry, Other - L5-S1 dermatome rash with vesicles from his back to groin on the left side. Head/Face: Positive: Normal Head/Face Inspection Eyes: Positive: Conjunctiva Clear ENT: Positive: Normal ENT inspection Neck: Positive: Other: - Musculoskeletal ROM normal neck. (-) JVD, (-) Stridor, (-) Tracheal deviation Lymph: (-) Cervical adenopathy Respiratory/Lung Sounds: Positive: Other - Respiratory distress. Tachypnea. Prolonged expiratory phase. Expiratory wheezes. (-) Rales Cardiovascular: Positive: Other - Rhythm regular, rate normal, Heart sounds normal; Intact distal pulses; The pedal pulses are 2+ and symmetric. Radial pulses are 2+ and symmetric. (-) Murmur Abdomen Description: Positive: Other: - Soft, (-) Tenderness, (-) Distension, (- ) Guarding, (-) Rebound Musculoskeletal: Negative: Edema Left, Edema Right Neurological: Positive: Alert, Oriented to Person Place, Time Psychiatric: Positive: Affect/Mood Appropriate Diagnostics - Vital Signs Vital Signs Temp Pulse Resp BP Pulse Ox 05/12/17 16:53 100.1 F 93 24 139/60 100 - Laboratory Result Diagrams: 05/12/17 18:00 05/12/17 18:00 Lab Statement: Any lab studies that have been ordered have been reviewed, and results considered in the medical decision making process. - Radiology CXR Radiology Interpretation Completed By: Radiologist - While less prominent than on the prior exam consolidation at the lung bases may represent residual or recurrent pneumonia. ED physician has reviewed this radiology report and agrees. Course/Dx - Course Assessment/Plan: This patient is a 71 year old M BIBA to [facility] accompanied by family with a chief complaint of SOB since 3 days ago. The SOB became gradually worse today. The patient rates the pain 0/10 in severity. Symptoms aggravated by nothing. Patient reports chills, productive cough (clear phlegm), rash ( erythematous and sore with a previous diagnosis of shingles per ), and calf swelling. Patient denies weight gain, fever, and diaphoresis. He was admitted to [facility] from 04/07/17 to 04/23/17 with primary diagnoses of 1. Acute on chronic respiratory failure with hypoxia. 2. Methicillin-resistant Staphylococcus aureus/Stenotrophomonas maltophilia pneumonia. 3. Acute diastolic congestive heart failure exacerbation. 4. Hyponatremia, likely associated with his pulmonary processes. 5. Cor pulmonale. 6. Pulmonary embolism. He has been sleeping in a recliner. PMHx includes COPD, PE, CHF, CAD, and HTN. CXR reveals While less prominent than on the prior exam consolidation at the lung bases may represent residual or recurrent pneumonia. ED physician has reviewed this radiology report and agrees. Consulted Dr. Lara (hospitalist) who agrees to admit. Patient will be admitted with follow up from Dr. Lara. The patient is agreeable with this plan. 35 MINUTES OF CRITICAL CARE TIME. - Diagnoses Provider Diagnoses: SOB (shortness of breath) - Physician Notifications Discussed Care of Patient With: Janet Lara Time Discussed With Above Provider: 19:15 Instructed by Provider To: Other - Consulted Dr. Lara (hospitalist) who agrees to admit. - Critical Care Time Critical Care Time: 30-74 min - 35 MINUTES OF CRITICAL CARE TIME Discharge - Discharge Plan Condition: Stable Disposition: ADMITTED TO [facility] The documentation as recorded by the Dipti davis Alfonso accurately reflects the service I personally performed and the decisions made by Bryon orellana Jerry, MD.
--- NOTE | 2017-05-17 14:54 | PN ---
Progress Note - Progress Note Date of Service: 05/17/17 - Pulm consult f/u note Note: Pt seen and examined at bedside. Pt had episode of hypoxia and SOB attributed to malfunctioning of O2 delivery unit. Pt otherwise feels better and denies any issues. Cough is less productive. Active Medications Generic Name Dose Route Start Last Admin Trade Name Freq PRN Reason Stop Dose Admin Albuterol 2.5 mg 05/13/17 01:52 05/15/17 03:22 Ventolin 2.5 Mg/3 Ml Neb.Mariella* INH 2.5 mg Q2H PRN Administration SOB/WHEEZING Albuterol/Ipratropium 1 neb 05/13/17 07:00 05/17/17 13:04 Duoneb (Albuterol 2.5 Mg/Ipratropium 0.5 Mg) INH 1 neb [id number] AWAKE SHAUNA Administration Aspirin 81 mg 05/13/17 09:00 05/17/17 08:15 Aspirin Low Dose Tab* PO 81 mg DAILY SHAUNA Administration Atorvastatin Calcium 20 mg 05/12/17 21:00 05/16/17 20:32 Lipitor* PO 20 mg 2100 SHAUNA Administration Cholecalciferol 1,000 units 05/13/17 09:00 05/17/17 08:10 Vitamin D Tab* PO 1,000 units DAILY SHAUNA Administration Citalopram Hydrobromide 10 mg 05/15/17 09:00 05/17/17 08:11 Celexa Tab* PO 10 mg DAILY SHAUNA Administration Cyclobenzaprine HCl 10 mg 05/16/17 09:49 05/17/17 11:30 Flexeril Tab* PO 10 mg Q6H PRN Administration SPASMS Furosemide 40 mg 05/17/17 16:00 Lasix Tab* PO 0900,1600 SHAUNA Guaifenesin 1,200 mg 05/12/17 21:00 05/17/17 08:11 Mucinex* PO 1,200 mg BID SHAUNA Administration Heparin Sodium (Porcine) 1 - 3 ml 05/14/17 18:00 05/17/17 06:00 Heparin Flush Picc/Ml/Cvc(*) FLUSH 1 ml 0600,1800 SHAUNA Administration Protocol Cefepime HCl 1 gm/ Sodium 50 mls @ 100 mls/hr 05/12/17 22:00 05/17/17 10:39 Chloride IVPB 100 mls/hr Q12H SHAUNA Administration Acyclovir Sodium 650 mg/ 113 mls @ 100 mls/hr 05/14/17 10:00 05/17/17 09:44 Sodium Chloride IVPB 100 mls/hr Q8H SHAUNA Administration Lactobacillus Rhamnosus 1 cap 05/14/17 21:00 05/17/17 08:15 Culturelle* PO 1 cap BID SHAUNA Administration Montelukast Sodium 10 mg 05/13/17 09:00 05/17/17 08:12 Singulair Tab* PO 10 mg DAILY SHAUNA Administration Omeprazole 20 mg 05/12/17 21:00 05/17/17 08:12 Prilosec Cap* PO 20 mg BID SHAUNA Administration Oxycodone/Acetaminophen 1 tab 05/12/17 19:32 Percocet 5/325 Tab* PO Q4H PRN PAIN Polyethylene Glycol/Electrolytes 17 gm 05/12/17 19:32 05/17/17 09:44 Miralax* PO 17 gm DAILY PRN Administration CONSTIPATION Potassium Chloride 20 meq 05/13/17 09:00 05/17/17 08:12 Klor Con Er Tab* PO 20 meq DAILY SHAUNA Administration Prednisone 40 mg 05/17/17 09:00 05/17/17 08:13 Deltasone Tab* PO 40 mg DAILY SHAUNA Administration Voriconazole 200 mg 05/12/17 22:00 05/17/17 08:15 Vfend (Nf) PO 200 mg BID SHAUNA Administration Warfarin Sodium 2.5 mg 05/18/17 17:00 Coumadin Tab(*) PO DAILY@1700 [facility] Protocol Vital Signs Temp Pulse Resp BP Pulse Ox 98.5 F 93 16 143/68 97 05/17/17 07:42 05/17/17 13:07 05/17/17 13:30 05/17/17 07:42 05/17/17 13:07 Physical exam: Gen: Sitting in chair in NAD, alert, awake, not using accessory muscles, appears comfortable Respiratory: Diminished air entry, no wheeze Cardiovascular: S, S2+, No Murmurs, No JVD Abdominal: Bowel sounds present, no tenderness, not distended Extremities: 1+ bilateral LE edema, improving Skin: clear vesicles on an erythematous base around his anterior leg and waist in dermatomal distribution, scabbing Neurological: Alert and Oriented x 3, no focal defecits Laboratory Results - last 24 hr 05/15/17 05/17/17 05/17/17 05:35 09:24 09:24 INR (Anticoag Therapy) 3.22 H Sodium 134 Potassium 3.7 Chloride 94 L Carbon Dioxide 40 H BUN 21 Creatinine 0.48 L Est GFR ( Amer) 221.6 Est GFR (Non-Af Amer) 172.3 BUN/Creatinine Ratio 43.8 H Glucose 174 H Hemoglobin A1c 5.9 Calcium 8.7 Microbiology: Sputum cx positive for Pseudomonas multi drug resistance I/R: 71 y o m with multipls comorbidities with recurrent admissions recently a/ w worsening SOB, hypoxia being treated for acute COPD exacerbation Pt has required high flow, transitioned to nasal cannula Taper FiO2 to maintain sats around 92%. He is currently on 5L, O2 sat 98% Will c/w prednisone taper, will send home on longer taper over 10 days Sputum cx grew Pseudomonas, currently on Cefepime, susceptible eventhough resistant to other cephalosporins Clinically better, will continue and transition to Levaquin at time of d/c Was started on Acyclovir for rash, to be d/koki after completion of 5 days On Voriconoazole for Aspergillosis, course as per ID On Coumadin for PE, INR therapeutic PT/OT For D/c to rehab tomorrow
[2017-05-17] MEDS ORDERED: Warfarin TAB(*) 2.5 MG PO SCH (17:00)
[2017-05-17] MEDS: Atorvastatin* 20 MG TAB PO SCH (21:05)
[2017-05-17 21:17] LABS: Hematocrit 27 % (42-52); Hemoglobin 8.8 g/dl (14.0-18.0); Mean Corpuscular HGB Conc 33 g/dl (31-36); Mean Corpuscular Hemoglobin 28 pg (27-31); Mean Corpuscular Volume 85 fL (80-94); Mean Platelet Volume 7 um3 (7.4-10.4); Red Blood Count 3.15 10^6/ul (4.0-5.4); Red Cell Distribution Width 18 % (10.5-15); White Blood Count 6.9 10^3/ul (3.5-10.8)
[2017-05-18] MEDS: Albuterol/Ipratropium NEB.SOL* Albuterol 2.5 MG/Ipratropium 0.5 MG 3 ML INH SCH ×4 (00:48→20:22)
[2017-05-18] MEDS: Cyclobenzaprine TAB* 10 MG PO PRN (01:06)
[2017-05-18] MEDS: oxyCODONE/Acetamin 5/325 MG* TAB PO PRN (05:59)
[2017-05-18] MEDS: guaiFENesin ER TAB 600 MG PO SCH ×2 (10:30→22:24)
[2017-05-18] MEDS: Cefepime(*) 1 GM in NS 0.9% 50 ML* 50 ML IVPB SCH ×2 (10:44→22:19)
[2017-05-18] MEDS: predniSONE TAB* 20 MG PO SCH (10:45)
[2017-05-18] MEDS: Cholecalciferol TAB* 1000 UNITS PO SCH (10:46)
[2017-05-18] MEDS: Furosemide TAB* 40 MG PO SCH ×2 (10:46→16:53)
[2017-05-18] MEDS: Citalopram TAB* 10 MG PO SCH (10:46)
[2017-05-18] MEDS: Aspirin Low Dose CHEW TAB* 81 MG PO SCH (10:46)
[2017-05-18] MEDS: Lactobacillus Acidophilu (GG)* 1 CAP CAP PO SCH ×2 (10:48→22:23)
[2017-05-18] MEDS: Omeprazole CAP* 20 MG PO SCH ×2 (10:48→22:24)
[2017-05-18] MEDS: Montelukast Sodium TAB* 10 MG PO SCH (10:48)
[2017-05-18] MEDS: Potassium Chlor TAB* 20 MEQ TAB.ER PO SCH (10:48)
[2017-05-18] MEDS: CMCS Voriconazole (NF) 50 MG TAB PO SCH ×2 (10:48→22:23)
--- NOTE | 2017-05-18 12:19 | PN ---
Subjective Date of Service: 05/18/17 Interval History: Patient offers no new complaints. No dyspnea at rest or with minimal activity. Objective Active Medications: Albuterol (Ventolin 2.5 Mg/3 Ml Neb.Mariella*) 2.5 mg INH Q2H PRN PRN Reason: SOB/WHEEZING Last Admin: 05/15/17 03:22 Dose: 2.5 mg Albuterol/Ipratropium (Duoneb (Albuterol 2.5 Mg/Ipratropium 0.5 Mg)) 1 neb INH [id number] AWAKE [facility] Last Admin: 05/18/17 11:21 Dose: 1 neb Aspirin (Aspirin Low Dose Tab*) 81 mg PO DAILY [facility] Last Admin: 05/18/17 10:46 Dose: 81 mg Atorvastatin Calcium (Lipitor*) 20 mg PO 2100 [facility] Last Admin: 05/17/17 21:05 Dose: 20 mg Cholecalciferol (Vitamin D Tab*) 1,000 units PO DAILY [facility] Last Admin: 05/18/17 10:46 Dose: 1,000 units Citalopram Hydrobromide (Celexa Tab*) 10 mg PO DAILY [facility] Last Admin: 05/18/17 10:46 Dose: 10 mg Cyclobenzaprine HCl (Flexeril Tab*) 10 mg PO Q6H PRN PRN Reason: SPASMS Last Admin: 05/18/17 01:06 Dose: 10 mg Furosemide (Lasix Tab*) 40 mg PO 0900,1600 [facility] Last Admin: 05/18/17 10:46 Dose: 40 mg Guaifenesin (Mucinex*) 1,200 mg PO BID [facility] Last Admin: 05/18/17 10:30 Dose: 1,200 mg Heparin Sodium (Porcine) (Heparin Flush Picc/Ml/Cvc(*)) 1 - 3 ml FLUSH 0600, 1800 SHAUNA PRN Reason: Protocol Last Admin: 05/18/17 06:00 Dose: 1 ml Cefepime HCl 1 gm/ Sodium (Chloride) 50 mls @ 100 mls/hr IVPB Q12H [facility] Last Admin: 05/18/17 10:44 Dose: 100 mls/hr Acyclovir Sodium 650 mg/ (Sodium Chloride) 113 mls @ 100 mls/hr IVPB Q8H [facility] Last Admin: 05/18/17 11:42 Dose: 100 mls/hr Lactobacillus Rhamnosus (Culturelle*) 1 cap PO BID [facility] Last Admin: 05/18/17 10:48 Dose: 1 cap Montelukast Sodium (Singulair Tab*) 10 mg PO DAILY [facility] Last Admin: 05/18/17 10:48 Dose: 10 mg Omeprazole (Prilosec Cap*) 20 mg PO BID [facility] Last Admin: 05/18/17 10:48 Dose: 20 mg Oxycodone/Acetaminophen (Percocet 5/325 Tab*) 1 tab PO Q4H PRN PRN Reason: PAIN Last Admin: 05/18/17 05:59 Dose: 1 tab Polyethylene Glycol/Electrolytes (Miralax*) 17 gm PO DAILY PRN PRN Reason: CONSTIPATION Last Admin: 05/17/17 09:44 Dose: 17 gm Potassium Chloride (Klor Con Er Tab*) 20 meq PO DAILY [facility] Last Admin: 05/18/17 10:48 Dose: 20 meq Prednisone (Deltasone Tab*) 40 mg PO DAILY [facility] Last Admin: 05/18/17 10:45 Dose: 40 mg Voriconazole (Vfend (Nf)) 200 mg PO BID [facility] Last Admin: 05/18/17 10:48 Dose: 200 mg Warfarin Sodium (Coumadin Tab(*)) 2.5 mg PO DAILY@1700 [facility] PRN Reason: Protocol Vital Signs: Temp Pulse Resp BP Pulse Ox 97.8 F 79 97 143/72 19 05/18/17 07:54 05/18/17 11:24 05/18/17 11:24 05/18/17 07:54 05/18/17 11:24 Oxygen Devices in Use Now: Nasal Cannula Appearance: Chronically ill, but relatively well appearing in NAD Respiratory: Symmetrical Chest Expansion and Respiratory Effort, - - few rhonchi in RLL Cardiovascular: NL Sounds; No Murmurs; No JVD, RRR Extremities: - - 1-2+ edema Skin: - - resolving rash, dried vesicles, hyperpigmentation, but no erythema along L hip and inguinal region Neurological: Alert and Oriented x 3 Result Diagrams: 05/17/17 21:00 05/17/17 09:24 Microbiology and Other Data: Microbiology 05/14/17 09:00 Gram Stain - Final Sputum Induced Sputum Culture - Preliminary Pseudomonas Aeruginosa Normal Cinthia 05/12/17 18:00 Aerobic Blood Culture - Preliminary Blood Venous No Growth Day 3 Anaerobic Blood Culture - Preliminary No Growth Day 3 Blood Culture - Final 05/13/17 16:57 Aerobic Blood Culture - Preliminary Blood Venous No Growth Day 2 Anaerobic Blood Culture - Preliminary No Growth Day 2 Blood Culture - Final Diagnostic Imaging: CXR - bilateral basilar infiltrate L>R improved over 04/19 Assess/Plan/Problems-Billing Assessment: This is a 71 yo gentleman with severe COPD, pulm aspergillosis, recent PE, CAD, HTN, HLD and pafib who presents with increasing dyspnea after recent hospitalization for MSSA PNA. Admitted to ICU for high flow O2, now on medical floor. - Patient Problems (1) Acute and chronic respiratory failure with hypoxia Comment: Secondary to COPD exacerbation and suspected HCAP Improving Sputum isolated Pseudomonas, C&S show good sensitivities to quinolones which gives us an oral option for dc Blood cultures neg Appreciate pulm consult Cont Cefepime, Vanco stopped, can transition to Levaquin at discharge Cont voriconazole for aspergillosis suppression Cont corticosteroids with tapering doses Cont inhaled therapies, deliver nebulized solution via metaneb (2) Acute diastolic CHF (congestive heart failure) Comment: Cont Lasix to 40mg bid Recent echo shows perserved EF with some diastolic dysfunction Also element of cor pulmonale (3) Herpes zoster Comment: VZV PCR positive from vesicular fluid Cont IV acyclovir due to immunocompromised status with chronic steroids and acute illness, will need total of 7d of therapy (4) Hyponatremia Comment: Resolved Likely secondary to hypervolemia from HF exacerbation Cont diuresis (5) History of pulmonary embolism Comment: Therapeutic INR Unlikely to be contributing to acute presentation (6) Atrial fibrillation Comment: Hx of paroxysmal afib. Currently in sinus rhythm. Anticoagulated with warfarin. (7) HLD (hyperlipidemia) Comment: Continue atorvastatin. (8) HTN (hypertension) Comment: Normotensive (9) Full code status (10) DVT prophylaxis Comment: Coumadin with therapeutic INR Status and Disposition: Inpatient. Awaiting [facility] referrals
[2017-05-18] MEDS ORDERED: Warfarin TAB(*) 2.5 MG PO SCH (17:00)
[2017-05-18] MEDS: Atorvastatin* 20 MG TAB PO SCH (22:24)
[2017-05-19] MEDS: Albuterol/Ipratropium NEB.SOL* Albuterol 2.5 MG/Ipratropium 0.5 MG 3 ML INH SCH ×3 (00:48→13:37)
[2017-05-19] MEDS: Cyclobenzaprine TAB* 10 MG PO PRN (05:49)
[2017-05-19 07:26] VITALS: BP 151/80
[2017-05-19] MEDS: Aspirin Low Dose CHEW TAB* 81 MG PO SCH (08:48)
[2017-05-19] MEDS: Montelukast Sodium TAB* 10 MG PO SCH (08:48)
[2017-05-19] MEDS: Omeprazole CAP* 20 MG PO SCH (08:48)
[2017-05-19] MEDS: Citalopram TAB* 10 MG PO SCH (08:48)
[2017-05-19] MEDS: Cholecalciferol TAB* 1000 UNITS PO SCH (08:48)
[2017-05-19] MEDS: Furosemide TAB* 40 MG PO SCH (08:48)
[2017-05-19] MEDS: predniSONE TAB* 20 MG PO SCH (08:49)
[2017-05-19] MEDS: guaiFENesin ER TAB 600 MG PO SCH (08:49)
[2017-05-19] MEDS: Lactobacillus Acidophilu (GG)* 1 CAP CAP PO SCH (08:49)
[2017-05-19] MEDS: CMCS Voriconazole (NF) 50 MG TAB PO SCH (08:50)
[2017-05-19] MEDS: Potassium Chlor TAB* 20 MEQ TAB.ER PO SCH (08:50)
[2017-05-19] MEDS: oxyCODONE/Acetamin 5/325 MG* TAB PO PRN (09:45)
[2017-05-19] MEDS: Polyethylene Glycol 3350* 17 GM PACKET PO PRN (11:03)
[2017-05-19] MEDS: Cefepime(*) 1 GM in NS 0.9% 50 ML* 50 ML IVPB SCH (11:07)
--- NOTE | 2017-05-19 12:49 | DS ---
CC: [facility]; Dr. Jelly Garcia; Dr. Israel* DATE OF ADMISSION: 05/12/2017. DATE OF DISCHARGE: 05/19/2017. PRIMARY CARE PROVIDER: Dr. Jelly Garcia. 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 Israel. DISCHARGING PROVIDER: SANTHOS[facility]. SUPERVISING PHYSICIAN: Dr. Burak Wilson* (dictated by SANTH[facility]). PRIMARY DISCHARGE DIAGNOSES: 1. Acute respiratory failure secondary to pseudomonal pneumonia and COPD exacerbation. 2. Acute diastolic heart failure. 3. Herpes zoster. 4. Hyponatremia secondary to hypervolemia related to heart failure exacerbation , resolved. SECONDARY DISCHARGE DIAGNOSES: 1. Severe COPD. 2. History of PE, anticoagulated on Coumadin with therapeutic INR. 3. Atrial fibrillation, anticoagulated on Coumadin. 4. Hypertension. 5. Hyperlipidemia. 6. 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 DISCHARGE MEDICATIONS: 1. Mucomyst 400 mg inhaled q.6 hours while awake. 2. Albuterol inhaler two puffs inhaled q.i.d. as needed for shortness of breath. 3. DuoNeb one neb q.4 hours as needed for shortness of breath. 4. Combivent inhaler two puffs inhaled 4 times daily as needed for shortness of breath. 5. Aspirin 81 mg p.o. daily. 6. Atorvastatin 20 mg p.o. daily. 7. Tessalon 100 mg p.o. q.8 hours as needed for cough. 8. Symbicort 160/4.5 two puffs inhaled twice daily. 9. Vitamin D 1000 units p.o. daily. 10. Celexa 10 mg p.o. daily. 11. Flexeril 10 mg p.o. t.i.d. as needed for back spasm. 12. Lasix 40 mg p.o. b.i.d. 13. Lactobacillus Acidophilus one capsule p.o. twice daily. 14. Xopenex one neb inhaled 4 times daily as needed for shortness of breath. 15. Levaquin 750 mg p.o. daily times 7 days. 16. Singulair 10 mg p.o. daily. 17. Prilosec 20 mg p.o. twice daily. 18. MiraLax 17 gm p.o. daily. 19. Potassium Chloride 20 mEq p.o. daily. 20. Senna one tablet p.o. at bedtime as needed for constipation. 21. Spiriva one capsule inhaled daily. 22. Valacyclovir 1000 mg p.o. t.i.d. times 2 days. 23. Voriconazole 200 mg p.o. b.i.d. 24. Coumadin 2.5 mg p.o. daily. 25. Mucinex 1200 mg p.o. twice daily. 26. Percocet 5/325 one tablet p.o. q.4 hours as needed for pain. 27. Prednisone with instructions to take 40 mg times 3 days, followed by 20 mg times 3 days, followed by 10 mg times 3 days. Medication changes: 1. Levaquin times 7 days. 2. Prednisone on tapering dose. 3. Valacyclovir times 2 additional days. 4. Start Celexa. 5. Increase Lasix. HOSPITAL IMAGIN. Chest x-ray, 05/12/2017, shows bilateral infiltrates at the lung bases which appears to be improved over prior exam of April 19, but unsure if it represents new pneumonia or improving pneumonia. 2. Chest x-ray, 05/17/2017, shows persistent bibasilar air space consolidation concerning for pneumonia and probable small bibasilar effusions. HOSPITAL COURSE: This is a 71-year-old gentleman who unfortunately has had multiple recent hospital admissions for respiratory failure. He has severe COPD , as well as a history of pulmonary aspergillosis who was hospitalized just about a month ago with an MSSA pneumonia. The patient completed therapy with Keflex as prescribed and reported that he began with increasing shortness of breath. He subsequently returned to the emergency department for evaluation. The patient at the time of admission had no leukocytosis. He had stable normocytic anemia. His blood gases showed mild alkalosis and chemistry showed some mild hyponatremia. He had severe severe dyspnea and increased work of breathing and was initially admitted to the ICU for high flow oxygen therapy. His chest x-ray at the time of admission showed bibasilar infiltrates, but compared to his last x-ray from the middle of April looked somewhat improved. It was difficult to differentiate whether this represented a new pneumonia or simply a COPD exacerbation with a prior resolving pneumonia. The patient was empirically treated for hospital acquired pneumonia on Cefepime and Vancomycin. Sputum was induced and eventually grew pseudomonas with good sensitivity to Cefepime, which he had been empirically started on as well as fluoroquinolones. The patient was also treated for COPD exacerbation with corticosteroids and inhaled therapies delivered via MetaNeb. During the patient's hospital stay, his complaints of dyspnea and FIO2 needs improved. At the time of discharge, he is satting in the mid to upper 90s with 3.5 liters of supplemental oxygen. This can probably be titrated down further with a goal of about 92 percent. The patient was also noted to have significant lower extremity edema and hyponatremia and was subsequently diuresed with IV Lasix with an improvement in his hyponatremia and his lower extremity edema, although still has 1 to 2+ pitting edema at the gardiner at the time of discharge, which is not terribly unusual for him. Also of note, the patient had noticed a rash on his left hip coming around anteriorly to the inguinal region that had developed a day or two prior to admission. This is an erythematous rash with fine vesicles surrounding it in a dermatomal distribution and for this reason was highly suspicious for herpes zoster. The patient was empirically treated with Acyclovir and PCR testing of the vesicular fluid later confirmed this diagnosis. Rash improved significantly during his hospital stay and he completed five of the seven recommended days of treatment. He will be continued on an additional two days of oral Valacyclovir at the time of discharge. DISPOSITION AND FOLLOW-UP PLAN: The patient is being discharged to [facility] for subacute rehab. Recommend an additional seven days of Levaquin as well as tapering Prednisone dose and continuing all of his usual maintenance inhalers as listed above. He requires two additional days of Valacyclovir to complete treatment for herpes zoster. Continue Voriconazole for aspergillosis suppression per Infectious Disease recommendation. Recommend that he follow-up with primary care provider upon discharge from [facility], but Dr. Israel, group leader wafer polishing, in approximately one week from discharge. The patient is leaving the hospital with supplemental O2 at approximately three liters via nasal cannula. Last saturations were documented at 98 percent. Would recommend keeping saturations closer to 92 percent. SANTHOSH [facility]TH [id number]/[facility] #: [id number] [facility] HOSPITALMainor
== END 2017-05-19 14:05 | DRG 189 ==
LOC: ED 16:26 → ICU 19:26 → MED 05-15 13:59
PROVIDERS: ADMIT Internal Medicine; ATTEND Hospitalist
DX: J96.00 Acute respiratory failure, unspecified whether with hypoxia or hypercapnia (principal); J15.1 Pneumonia due to Pseudomonas; I50.31 Acute diastolic (congestive) heart failure; B44.1 Other pulmonary aspergillosis; E87.1 Hypo-osmolality and hyponatremia; I11.0 Hypertensive heart disease with heart failure; I27.81 Cor pulmonale (chronic); I48.0 Paroxysmal atrial fibrillation; J44.1 Chronic obstructive pulmonary disease with (acute) exacerbation; B02.9 Zoster without complications; I25.10 Atherosclerotic heart disease of native coronary artery without angina pectoris; D64.9 Anemia, unspecified; E78.5 Hyperlipidemia, unspecified; Z85.46 Personal history of malignant neoplasm of prostate; Z90.79 Acquired absence of other genital organ(s); Z87.891 Personal history of nicotine dependence; Z86.19 Personal history of other infectious and parasitic diseases; Z86.711 Personal history of pulmonary embolism; Z79.82 Long term (current) use of aspirin; Z79.01 Long term (current) use of anticoagulants
CPT/HCPCS: 36415; 36600; 71010; 80048; 80053; 80202; 82803; 83036; 83605; 84145; 84484; 85025; 85610; 86140; 87040; 87070; 87077; 87186; 87205; 87529; 87798; 90686; 94640; 94667; 94668; 94760; A9270-GY; J0133; J0692; J1940; J2060; J2920; J2930; J3370; J7512; J7611; J7644

== ENCOUNTER 2017-12-23 13:20 | Inpatient (IN) | payer MEDICARE ==
--- OUTSIDE RECORDS SUMMARY | 2017-12-23 13:31 | XMS REPORT ---
:1945 External Reference #:[id number] Author Organization [facility] Address [address] [place] [address] Phone [phone] Care Team Providers Name Role Phone Jelly Garcia M.D., R.D. Primary Care Physician Unavailable Payers Type Date Identification Numbers Payment Provider Subscriber Commercial Effective: Policy Number: Kamla [facility] Lisa Pickard Vargas 2007 [id number] Expires: 2011 Group Name: [place] [address] PayID: [id number] INDERJIT Ortiz 70954 Medigap Part B Effective: Policy Number: Kamla [facility] Lisa Pickard Vargas 2011 [id number] Expires: 2011 Group Name: [employer] [address] PayID: [id number] INDERJIT Ortiz 50848 Commercial Effective: Policy Number: [employer] Lisa Pickard Vargas 2011 [id number] [employer] Expires: 2012 Group Number: [id number] [address] PayID: [id number] INDERJIT Ortiz 89040 Commercial Effective: Policy Number: [employer] Lisa Pickard Vargas 2012 [id number] [employer] Group Number: [id number] [address] PayID: [id number] INDERJIT Ortiz 92132 Problems Date Description Provider Status Onset: 12/16/2010 Chronic obstructive lung disease Jelly Garcia M.D., R.D. Active Onset: 12/16/2010 Essential hypertension Jelly Garcia M.D., R.D. Active Onset: 12/16/2010 Mixed hyperlipidemia Jelly Garcia M.D., R.D. Active Family History Date Family Member(s) Problem(s) Comments General Prostate CA No colon CA. No CAD. No DM. Father due to CVA () - at age 77 Mother due to CVA () - age 68 Children 2 First Son Healthy First Daughter Healthy Social History Type Date Description Comments Marital Status Diet Healthy, Well Balanced Avoids salt. Fruits, vegetables. 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 ETOH Use Denies alcohol use Smoking Patient is a former smoker Daily Caffeine Consumes on average 2 cups of coffee per day Exercise Type/Frequency 09/2010 Exercises regularly [place] the mall in fall and winter. Allergies, Adverse Reactions, Alerts Date Description Reaction Status Severity Comments 10/07/2010 Simvastatin active elevated liver function tests Medications Medication Date Status Form Strength Qnty SIG Indications Ordering Provider Alprazolam 12/04 Active Tablets 0.25mg 10tab take one to s two tablets Radha by mouth M.D., twice daily R.D. for anxiety max/day--2 tablets Azithromycin 11/30 Active Tablets 250mg 30tab take 1 a s day Otis Garcia, R.D. Prednisone 07/28 Active Tablets 10mg QS 6 by mouth J44.1 daily for 3 Radha, days, then M.D., 4 by mouth R.D. every day for 3 days, then decrease by 1 pill every 3 days Levalbuterol HCL 06/09 Active Nebulizer 1.25mg/3M 270ml Use as L directed in Radha nebulizer Otis, qid unit R.D. dose for one month with 5 refills Levofloxacin 05/27 Active Tablets 750mg 7tabs 1 tab by mouth daily Radha for 7 days M.D., R.D. Potassium 12/31 Active Tablets ER 20Meq 180ta take one Jelly Chloride bs tablet by Radha mouth twice M.D., per day R.D. Omeprazole 12/[address] 20mg 60cap Take One Jelly s Capsule By Radha, Mouth Twice M.D., A Day R.D. Combivent 02/06 Active Aerosol 20-100mcg 12uni inhale 1 Jelly Respimat /2013 /Act ts puff into Radha, lungs 4 M.D., times a day R.D. as needed Montelukast 05/16 Active Tablets 10mg 90tab Take One J44.9 Jelly Sodium s Tablet By Radha, Mouth At M.D., Bedtime R.D. Symbicort 04/07 Active Aerosol 160-4.5mc 10.2u Inhale Two Jelly /2011 g/Act nits Puffs Into Radha, Lungs Twice M.D., A Day R.D. Atorvastatin 03/24 Active Tablets 20mg 90tab Take One Jelly Calcium s Tablet By Radha, Mouth At M.D., Bedtime R.D. Flonase 08/06 Active Suspension 50mcg/Act 32gm inhale two sprays in [facility], each M.D., nostril R.D. qd-bid Amlodipine 10/07 Active Tablets 10mg 90tab Take One Keny Besylate s Tablet By Hector Mouth Every III, Day KNITTER OPERATOR-C Spiriva 10/07 Active Capsules 18mcg 90cap Inhale Jelly Handihaler s Contents Of Radha, One Capsule M.D., Via R.D. Handihaler Device Once Daily Aspir-[address] 81mg 1 by mouth Unknown /0000 every day Voriconazole Active Tablets 200mg Unknown /0000 Xarelto Active Tablets 20mg Take One Unknown /0000 Tablet By Mouth Every Day Citalopram Active Tablets 10mg 30tab Take One Jelly Hydrobromide s Tablet By Radha, Mouth Every M.D., Day R.D. Furosemide Active Tablets 20mg 60tab Take Two Jelly / s Tablets By Radha, Mouth Every M.D., Day R.D. Nystatin-Triamci 03/11 Hx Cream 183688-5. 30uni Apply To Jelly 1Unit/GM- ts Affected Radha, - % Area(S) Two M.D., 07/04 Times A Day R.D. For 2 Weeks Prednisone 03/09 Hx Tablets 10mg QS 4 by mouth Rad.Francis every day Yoel Garcia for 3 days, M.D., 07/04 then R.D. decrease by 1 pill every 3 days Tramadol HCL 03/09 Hx Tablets 50mg 45tab take 1 Rad.Francis s tablet by Radha - mouth up to M.D., 06/17 three times R.D. a day as needed for pain; maximum daily dose=3 Cyclobenzaprine 03/09 Hx Tablets 5mg 30tab 1 Tablet By Jaiden Nathaniel s Mouth Up To [place] - Three Times MD 06/17 A Day Discontinue 01/14 Hx Jelly Yoel Garcia M.D., 03/16 R.D. Xopenex 12/31 Hx Nebulizer 1.25mg/3M 72ml 2 puffs L every 6 Yoel Garcia hours as M.D., 03/16 needed R.D. Asmanex HFA 12/31 Hx Aerosol 200mcg/Ac 3 puffs qd t Yoel Garcia M.D., 07/28 R.D. Augmentin 10/02 Hx Tablets 875-125mg 28tab 1 take by Jaiden s mouth Yoel Garcia tablet Arvin.DLanre, 11/02 every 12 R.D. /2018 hours for 10 days for infection Nystatin-Triamci 08/11 Hx Cream 991514-8. 30uni Apply To Jelly Unit/GM- ts Affected Radha, - % Area(S) Two M.D., 11/10 Times A Day R.D. For 2 Weeks Prednisone 04/07 Hx Tablets 20mg 21tab take 3 tabs Jaiden Nathaniel s by mouth x [place] - 3 days, MD 11/10 then 2 tabs by mouth x 3 days, then 1 tab by mouth x 3 days, then 1/2 tab by mouth x 3 days Prednisone 12/12 Hx Tablets 50mg 3tabs 1 tab by Jaiden Armstrong mouth daily [place] - for 3 days , 01/14 Augmentin 12/12 Hx Tablets 875-125mg 20tab 1 take by Jaiden s mouth [place] - tablet , 01/14 every hours for 10 days for infection Nystatin-Triamci 12/04 Hx Cream 454420-2. 30uni Apply To Jelly lo 1Unit/GM- ts Affected Radha, - % Area(S) Two M.D., 02/19 Times A Day R.D. For 2 Weeks Proair 09/06 Hx Aerosol 108(90Bas 1unit 1-2 puffs Amparo Respiclick e) s every 4-6 P. - mcg/Act hours as Blegen, 04/07 needed for M.D. cough or shortness of breath (instead of combivent) Prednisone 09/06 Hx Tablets 20mg 14tab 2 by mouth J44.9 s every day x Radha, - 7 days, M.DLanre, 04/07 take with R.D. /2015 food Azithromycin 08/28 Hx Tablets 250mg 6tabs take 2 J44.0 tablets [place], - today then KNITTER OPERATOR-C 09/06 1 tablet /2014 daily for the next 4 days Prednisone 07/28 Hx Tablets 20mg QS take 3 J44.9 tablets [place], - every day x KNITTER OPERATOR-C 09/06 4 days, 2 tablets every day x 3 days,then 1 tablet every day X 3days, then 1/2 tab X 3 days Prednisone 06/15 Hx Tablets 20mg 10tab take 2 tabs 491.22 Kusum s po qd X 5 [place], - days. KNITTER OPERATOR-C 07/28 Prednisone 04/10 Hx Tablets 20mg 21tab take 3 491.22 Kusum s tablets x 3 [place], - days, then KNITTER OPERATOR-C 06/15 2 tablets x 3 days,then 1 tablet x 3 days, then 1/2 tablet x 3 days. Levofloxacin 04/10 Hx Tablets 750mg 10tab 1 tablet by J44.0 s mouth every [place], - day x 10 KNITTER OPERATOR-C J44.1 Nystatin-Triamcinolone 03/13/2014 Hx Cream 362641-9.1Unit/GM-% 30units Apply To Jelly - Affected Radha, 07/30/2015 Area(S) Otis, RRachel Two Times A Day For 2 Weeks Pulmicort Flexhaler 12/21/2013 Hx Aeroso 90mcg/Act 1units 3 puff Jelly - l qhs Per Radha, 12/31/2016 Pularvin Berg RQuinton. Please Administer The 12/21/2013 Hx Jelly Shingles Vaccine - Radha, 10/10/2015 Otis R.D. Terbinafine HCL 11/03/2013 Hx Tablet 250mg 126tabs Take One Jelly - s Tablet By Radha, 03/16/2017 Mouth Otis RRachel Once Daily For One Week Of Each Month Levofloxacin 05/16/2013 Hx Tablet 750mg 10tabs 1 tablet J Jelly - s by mouth 4 Radha, 09/06/2015 every day 4 Otis RRachel x 10 days . 9 Prednisone 05/16/2013 Hx Tablet 20mg QS Take 3 4 Jelly - s tablets 9 Radha, 12/21/2013 qd x 4 6 M.Sri R.D. days,then 2 tablets qd x 3 days, then 1 tablet qd for 3 days then 1/2 tablet daily x4 days, then stop Combivent 04/20/2013 Hx Aeroso 18-103mcg/Act 1units Inhale Jelly - l Two Puffs Radha, 02/06/2014 Into Otis RRachel Lungs Four Times A Day Levofloxacin 03/28/2013 Hx Tablet 750mg 10tabs 1 tablet 4 Kusum - s po qd x 9 [place], 05/16/2013 10 days 1 KNITTER OPERATOR-C . 2 2 Daliresp 03/14/2013 Hx Tablet 500mcg 30tabs 1 po 4 Shawnti R. - s daily for 9 [facility], 05/16/2013 COPD 1 KNITTER OPERATOR-C . 2 2 Azithromycin 03/14/2013 Hx Tablet 250mg 6tabs 2 po 4 Shawnti R. - s today 9 , 03/28/2013 then 1 po 1 KNITTER OPERATOR-C daily for . 4 days 2 2 Augmentin 12/08/2012 Hx Tablet 875-125mg 20tabs 1 po bid 4 Jelly - s for 9 Radha, 08/08/2013 infection 1 M.D., R.D. . 2 2 Augmentin 11/27/2012 Hx Tablet 875-125mg 20tabs 1 po bid Shawnti R. - s for [facility], 12/07/2012 infection KNITTER OPERATOR-C Prednisone 11/23/2012 Hx Tablet 20mg QS Take 3 V Kusum - s tablets 7 [place], 05/16/2013 qd x 4 0 KNITTER OPERATOR-C days,then . 2 tablets 0 qd x 3 days, then 1 tablet qd for 3 days then 1/2 tablet daily x4 days, then stop Azithromycin 11/23/2012 Hx Tablet 250mg 6tabs take 2 V Kusum - s tablets 7 [place], 11/27/2012 today 0 KNITTER OPERATOR-C then 1 . tablet 0 daily for the next 4 days Prednisone 10/11/2012 Hx Tablet 20mg QS take 2 Jelly - s tablets x Radha, 11/23/2012 3 M.D., R.D. days,then 1 tablet x 3 days, then 1/2 tablet x 3 days. Prednisone 10/07/2012 Hx Tablet 20mg 21tabs take 3 Jelly - s tablets x Radha, 10/07/2012 3 days, M.D., R.D. then 2 tablets x 3 days,then 1 tablet x 3 days, then 1/2 tablet x 3 days. Nebulizer Tubing 10/06/2012 Hx 1units and mask Jelly Garcia, 12/20/2012 Livia., R.D. Lamisil 05/03/2012 Hx Tablet 125mg 21tabs 1 po qd 1 Jelly - s for one 1 Radha, 05/03/2012 week 0 M.Mainor., R.D. every . month 1 Lamisil 05/03/2012 Hx Tablet 250mg 21tabs 1 po q 1 Jelly alexandra day for 1 Radha, 12/20/2012 one week 0 Otis, R.D. of each . month 1 Azithromycin 04/07/2012 Hx Tablet 250mg 15tabs 1 po 3 Jelly - s times per Radha, 11/27/2012 week Otis, R.D. Amoxicillin/Clavulanate 12/09/2011 Hx Tablet 875-125mg 20tabs 1 tablet 6 Kusum Potassium - s twice 8 [place], 11/23/2012 daily x 5 KNITTER OPERATOR-C 10 days . 0 Aspir-81 12/01/2011 Hx Tablet 81mg 90tabs 1 by Jelly Garcia, 02/20/2016 every day MRachel, R.D. Amoxicillin 10/17/2011 Hx Tablet 875mg 20tabs 1 tablet 4 Kusum - s bid x 10 6 [place], 11/28/2011 days 1 KNITTER OPERATOR-C . 8 Azithromycin 10/08/2011 Hx Tablet 250mg 6tabs 3 times Jelly - nasrin per week Radha, 11/28/2011 Otis, R.D. Symbicort 10/08/2011 Hx Aeroso 3units Jelly Garcia, 04/07/2012 Otis, R.D. Avelox 10/08/2011 Hx Tablet 400mg 7tabs one po Jelly alexandra daily Radha, 12/08/2012 Otis, R.D. Veramyst 08/06/2011 Hx Suspen 27.5mcg/Mascot 1units 1 whiff q Jelly Garcia, 12/09/2011 daily Otis, R.D. Cefuroxime Axetil 07/18/2011 Hx Tablet 500mg 20tabs 1 po bid Jelly Garcia, 10/23/2011 Otis, R.D. Nystatin/Triamcinolone 06/02/2011 Hx Cream 763274-3.1Unit/GM-% 30g apply to Jelly Yoel Garcia, 12/20/2012 area bid M.Sri, R.D. for 1-2 weeks. Augmentin 06/02/2011 Hx Tablet 875-125mg 20tabs 1 po bid Jelly - s Radha, 10/08/2011 Otis, R.D. Clarithromycin ER 12/16/2010 Hx Tablet 500mg 20tabs 2 po V Shawnti R. - s ER daily for 7 [place], 03/11/2011 24HR 10 days 0 KNITTER OPERATOR-C for . pneumonia 0 Flovent HFA 10/07/2010 Hx Aeroso 220mcg/Act 1units 2 puff Jelly - l bid Radha, 10/08/2011 Otis, R.D. Combivent 10/07/2010 Hx Aeroso 18-103mcg/Act 1units 2 puffs Jelly - l qid prn Radha, 10/08/2011 Otis, RRachel Albuterol Sulfate 10/07/2010 Hx Nebuli (2.5mg/3ML) 0.083% 2boxes use bid Jelly - zer as needed Radha, 12/31/2016 for Otis, R.DLanre shortness of breath Lipitor 10/07/2010 Hx Tablet 20mg 30tabs Take One Jelly - s Tablet By Radha, 03/24/2012 Mouth At Otis, R.D. Bedtime Combivent Hx Aeroso 18-103mcg/Act 1units 2 puffs Jelly - l qid Radha, 12/20/2012 Otis, R.D. Fluticasone Propionate Hx Suspen 50mcg/Act Unknown - abimael 11/23/2012 Nystatin/Triamcinolone Hx Cream 936436-6.1Unit/GM-% 30gm Apply bid Jelly - to Radha, 08/08/2013 affected Otis, R.D. area prn Terbinafine HCL Hx Tablet 250mg 42tabs 1 po qd Jelly - s for one Radha, 08/08/2013 week of Otis R.D. each month Nystatin/Triamcinolone Hx Cream 105785-7.1Unit/GM-% 30gm Apply to Jelly - affected Radha, 12/21/2013 area bid Justino Berg for 2 weeks Levalbuterol HCL Hx Nebuli 1.25mg/3ML Unknown - zer 03/16/2017 Metoprolol Succinate ER Hx Tablet 25mg 45tabs 1/2 tab Jelly - s ER daily Radha, 03/16/2017 24HR Otis RLanreD. Valsartan Hx Tablet 80mg Unknown - s 07/28/2017 Xarelto Hx Tablet 15mg Take One Unknown - s Tablet By 04/23/2017 Mouth Twice A Day Oxycodone-Acetaminophen Hx Tablet 5-325mg 15tabs 1 tab po Kusum - s q 8 hours [place], 07/28/2017 prn rib KNITTER OPERATOR-C pain Warfarin Sodium Hx Tablet 2.5mg 90tabs take one Keny - s tablet by [place] 06/17/2017 mouth III, KNITTER OPERATOR-C every day at 5pm Levofloxacin Hx Tablet 750mg Take One Unknown - s Tablet By 04/16/2017 Mouth Once Daily For 6 Days Valacyclovir HCL Hx Tablet 1gm Take One Unknown - s Tablet By 04/26/2017 Mouth Three Times A Day For 2 Days Azithromycin Hx Tablet 200mg 30tabs take 1 a Unknown - s day 11/30/2017 Immunizations CPT Code Status Date Vaccine Lot # [id number] Given 05/22/2017 [place] [address] Given 06/21/2016 [place] [address] Given 06/19/2015 Influenza Virus Vaccine, Quadrivalent, 3 Yr > Quad, Preserv Free 51815 Given 07/28/2014 Prevnar-13 Pneumococcal Conjugate Vaccine [id number] 79483 Given 01/12/2014 Zoster Vaccine 57903 Given 05/16/2013 Influenza Vaccine High Dose PF [id number] 89366 Given 06/02/2011 Pneumovax 23 (PPSV23) 65+ years or high risk 2 to [id number] 65 year old 65952 Given 06/02/2011 Influenza Vaccine-Preservative Free 3 Yrs And [id number] Above 61608 Given 03/09/2006 Tetanus Vital Signs Date Vital Result Comment 12/04/2017 Heart Rate 68 /min Body Temperature 99.0 F Respiratory Rate 15 /min O2 % BldC Oximetry 95 % 11/02/2017 Weight 133.00 lb Weight in kg's 60.329 BP Systolic 130 mmHg BP Diastolic 56 mmHg Heart Rate 63 /min Body Temperature 95.8 F Respiratory Rate 18 /min O2 % BldC Oximetry 96 % with o2 at 5L 10/07/2017 Weight 136.00 lb Weight in kg's 61.690 BP Systolic 120 mmHg BP Diastolic 60 mmHg Heart Rate 64 /min Body Temperature 97.5 F tylenol at 6 am Respiratory Rate 20 /min O2 % BldC Oximetry 93 % 4lt 07/28/2017 Weight 142.00 lb Weight in kg's 64.411 BP Systolic 120 mmHg BP Diastolic 60 mmHg Body Temperature 99.9 F Respiratory Rate 80 /min O2 % BldC Oximetry 91 % 06/17/2017 Weight 142.00 lb Weight in kg's 64.411 BP Systolic 138 mmHg BP Diastolic 56 mmHg Heart Rate 83 /min Body Temperature 97.4 F Respiratory Rate 26 /min O2 % BldC Oximetry 93 % 05/27/2017 Weight 139.00 lb Weight in kg's 63.050 BP Systolic 158 mmHg BP Diastolic 76 mmHg Heart Rate 110 /min Body Temperature 97.5 F Respiratory Rate 28 /min O2 % BldC Oximetry 93 % 4 liters O2 03/16/2017 Weight 161.00 lb Weight in kg's 73.030 BP Systolic 132 mmHg BP Diastolic 64 mmHg Heart Rate 98 /min Body Temperature 98.4 F Respiratory Rate 18 /min O2 % BldC Oximetry 93 % 03/09/2017 Weight 162.00 lb Weight in kg's 73.483 BP Systolic 146 mmHg BP Diastolic 65 mmHg Heart Rate 84 /min O2 % BldC Oximetry 90 % 12/31/2016 Weight 157.00 lb Weight in kg's 71.215 BP Systolic 136 mmHg BP Diastolic 68 mmHg Heart Rate 88 /min Body Temperature 98.6 F Respiratory Rate 24 /min O2 % BldC Oximetry 93 % Room air 11/28/2016 Weight 165.00 lb Weight in kg's 74.844 BP Systolic 160 mmHg BP Diastolic 80 mmHg Heart Rate 56 /min Body Temperature 97.1 F O2 % BldC Oximetry 87 % 11/10/2016 Weight 173.00 lb Weight in kg's 78.473 BP Systolic 140 mmHg BP Diastolic 80 mmHg Heart Rate 63 /min Body Temperature 96.7 F Respiratory Rate 16 /min O2 % BldC Oximetry 92 % 10/02/2016 Weight 173.00 lb Weight in kg's 78.473 BP Systolic 120 mmHg BP Diastolic 60 mmHg Heart Rate 64 /min Body Temperature 98.8 F Respiratory Rate 20 /min O2 % BldC Oximetry 96 % 04/07/2016 Weight 166.00 lb Weight in kg's 75.298 BP Systolic 148 mmHg BP Diastolic 68 mmHg Heart Rate 76 /min Body Temperature 97.1 F Respiratory Rate 18 /min O2 % BldC Oximetry 97 % 02/20/2016 Weight 166.00 lb Weight in kg's 75.298 BP Systolic 150 mmHg 145/80 recheck L BP Diastolic 70 mmHg 145/80 recheck L Heart Rate 62 /min Height 66 inches 5'6" BMI (Body Mass Index) 26.8 kg/m2 01/15/2016 Weight 169.00 lb Weight in kg's 76.658 BP Systolic 142 mmHg BP Diastolic 64 mmHg Heart Rate 78 /min Body Temperature 97.2 F O2 % BldC Oximetry 94 % Room air 12/13/2015 Weight 165.00 lb Weight in kg's 74.844 BP Systolic 128 mmHg BP Diastolic 60 mmHg Heart Rate 72 /min Body Temperature 98.6 F O2 % BldC Oximetry 96 % 09/06/2015 Weight 159.00 lb Weight in kg's 72.122 BP Systolic 130 mmHg BP Diastolic 64 mmHg Heart Rate 68 /min Body Temperature 99.0 F 09/04/2015 Weight 160.00 lb Weight in kg's 72.576 BP Systolic 140 mmHg BP Diastolic 82 mmHg Heart Rate 67 /min Body Temperature 97.4 F O2 % BldC Oximetry 97 % Room air 08/28/2015 Weight 158.00 lb Weight in kg's 71.669 BP Systolic 130 mmHg BP Diastolic 72 mmHg Heart Rate 72 /min O2 % BldC Oximetry 96 % 08/20/2015 Weight 158.00 lb Weight in kg's 71.669 BP Systolic 132 mmHg BP Diastolic 60 mmHg Heart Rate 76 /min O2 % BldC Oximetry 93 % 07/30/2015 Weight 158.00 lb Weight in kg's 71.669 BP Systolic 132 mmHg BP Diastolic 60 mmHg Heart Rate 70 /min Body Temperature 98.4 F O2 % BldC Oximetry 96 % 07/02/2015 Weight 160.00 lb Weight in kg's 72.576 BP Systolic 120 mmHg BP Diastolic 60 mmHg Heart Rate 76 /min O2 % BldC Oximetry 96 % 06/19/2015 Weight 163.00 lb Weight in kg's 73.937 BP Systolic 152 mmHg BP Diastolic 64 mmHg Heart Rate 70 /min Body Temperature 97.2 F Height 66 inches 5'6" With shoes BMI (Body Mass Index) 26.3 kg/m2 O2 % BldC Oximetry 95 % Room air 07/28/2014 Weight 175.00 lb Weight in kg's 79.380 BP Systolic 150 mmHg BP Diastolic 70 mmHg Heart Rate 62 /min Body Temperature 97.6 F O2 % BldC Oximetry 96 % On Room Air 06/15/2014 Weight 184.00 lb Weight in kg's 83.462 BP Systolic 124 mmHg BP Diastolic 62 mmHg Heart Rate 64 /min Body Temperature 96.9 F O2 % BldC Oximetry 97 % 04/10/2014 Weight 186.00 lb Weight in kg's 84.370 BP Systolic 120 mmHg BP Diastolic 62 mmHg Heart Rate 69 /min Body Temperature 96.5 F O2 % BldC Oximetry 96 % 12/21/2013 Weight 182.00 lb Weight in kg's 82.555 BP Systolic 140 mmHg BP Diastolic 76 mmHg Heart Rate 74 /min Height 65.25 inches 5'5.25" without shoes BMI (Body Mass Index) 30.1 kg/m2 O2 % BldC Oximetry 95 % Room Air 07/18/2013 Weight 182.00 lb Weight in kg's 82.555 BP Systolic 120 mmHg BP Diastolic 72 mmHg Heart Rate 64 /min Body Temperature 97.0 F O2 % BldC Oximetry 96 % Level At Rest 05/16/2013 Weight 178.00 lb Weight in kg's 80.741 BP Systolic 132 mmHg BP Diastolic 78 mmHg Heart Rate 76 /min O2 % BldC Oximetry 97 % level at rest 03/28/2013 Weight 180.00 lb Weight in kg's 81.648 BP Systolic 140 mmHg BP Diastolic 70 mmHg Heart Rate 76 /min Body Temperature 97.0 F O2 % BldC Oximetry 96 % level at rest 03/14/2013 Weight 184.00 lb Weight in kg's 83.462 BP Systolic 150 mmHg BP Diastolic 60 mmHg Heart Rate 72 /min Body Temperature 97.6 F O2 % BldC Oximetry 96 % at room air 02/22/2013 Weight 186.00 lb Weight in kg's 84.370 BP Systolic 140 mmHg BP Diastolic 66 mmHg Heart Rate 66 /min Body Temperature 96.6 F O2 % BldC Oximetry 97 % 12/20/2012 Weight 183.00 lb Weight in kg's 83.009 BP Systolic 144 mmHg BP Diastolic 66 mmHg Heart Rate 84 /min 12/08/2012 Weight 180.00 lb Weight in kg's 81.648 BP Systolic 120 mmHg BP Diastolic 60 mmHg Heart Rate 76 /min Body Temperature 97.4 F 11/29/2012 Weight 182.00 lb Weight in kg's 82.555 BP Systolic 130 mmHg BP Diastolic 56 mmHg Heart Rate 82 /min Body Temperature 96.3 F Height 66 inches 5'6" BMI (Body Mass Index) 29.4 kg/m2 O2 % BldC Oximetry 94 % 11/27/2012 Weight 181.00 lb Weight in kg's 82.102 BP Systolic 120 mmHg BP Diastolic 70 mmHg Heart Rate 80 /min Body Temperature 96.1 F O2 % BldC Oximetry 95 % 11/23/2012 Weight 182.00 lb Weight in kg's 82.555 BP Systolic 138 mmHg BP Diastolic 70 mmHg Heart Rate 65 /min Body Temperature 96.7 F O2 % BldC Oximetry 94 % Ra 10/06/2012 Weight 185.00 lb Weight in kg's 83.916 BP Systolic 112 mmHg BP Diastolic 70 mmHg Heart Rate 72 /min Body Temperature 97.7 F O2 % BldC Oximetry 98 % 05/03/2012 Weight 186.00 lb Weight in kg's 84.370 BP Systolic 132 mmHg BP Diastolic 68 mmHg Heart Rate 76 /min 12/09/2011 Weight 180.00 lb Weight in kg's 81.648 BP Systolic 160 mmHg BP Diastolic 70 mmHg Heart Rate 76 /min Body Temperature 97.2 F 12/01/2011 Weight 184.00 lb Weight in kg's 83.462 BP Systolic 148 mmHg BP Diastolic 62 mmHg Heart Rate 76 /min 10/17/2011 Weight 182.00 lb Weight in kg's 82.555 BP Systolic 132 mmHg BP Diastolic 68 mmHg Heart Rate 68 /min Body Temperature 96.9 F O2 % BldC Oximetry 98 % 10/08/2011 Weight 181.00 lb Weight in kg's 82.102 BP Systolic 152 mmHg BP Diastolic 72 mmHg Heart Rate 72 /min Body Temperature 97.4 F O2 % BldC Oximetry 97 % At Room Air 06/02/2011 Weight 179.00 lb Weight in kg's 81.194 BP Systolic 140 mmHg BP Diastolic 60 mmHg Heart Rate 64 /min Body Temperature 97.6 F Height 66 inches 5'6" BMI (Body Mass Index) 28.9 kg/m2 O2 % BldC Oximetry 95 % 01/08/2011 Weight 177.00 lb Weight in kg's 80.287 BP Systolic 122 mmHg BP Diastolic 72 mmHg Heart Rate 76 /min O2 % BldC Oximetry 97 % 12/16/2010 Weight 179.00 lb Weight in kg's 81.194 BP Systolic 142 mmHg BP Diastolic 68 mmHg Heart Rate 72 /min Body Temperature 98.0 F O2 % BldC Oximetry 96 % 10/30/2010 Weight 176.00 lb Weight in kg's 79.834 BP Systolic 122 mmHg BP Diastolic 64 mmHg Heart Rate 72 /min Body Temperature 96.7 F O2 % BldC Oximetry 97 % 10/07/2010 Weight 177.00 lb Weight in kg's 80.287 BP Systolic 132 mmHg BP Diastolic 60 mmHg Heart Rate 72 /min Height 66.25 inches 5'6.25" BMI (Body Mass Index) 28.4 kg/m2 Results Test Date Test Result H/L Range Note Flu Test A, B, Or A & 11/02/2017 Influenza A Antigen neg B,Binaxn Influenza B Antigen neg Laboratory test finding 07/20/2017 Inr 1.14 High 0.89-1.11 1 Laboratory test finding 07/08/2017 Inr/Protime 1.17 High 0.89-1.11 2 Comp Metabolic Panel 07/08/2017 Sodium 137 mmol/L 133-145 Potassium 4.2 mmol/L 3.5-5.0 Chloride 100 mmol/L Low 101-111 Co2 Carbon Dioxide 29 mmol/L 22-32 Anion Gap 8 mmol/L 2-11 Glucose 106 mg/dL High 70-100 Blood Urea Nitrogen 19 mg/dL 6-24 Creatinine 0.65 mg/dL Low 0.67-1.17 BUN/Creatinine Ratio 29.2 High 8-20 Calcium 9.7 mg/dL 8.6-10.3 Total Protein 6.7 g/dL 6.4-8.9 Albumin 4.1 g/dL 3.2-5.2 Globulin 2.6 g/dL 2-4 Albumin/Globulin Ratio 1.6 1-3 Total Bilirubin 0.30 mg/dL 0.2-1.0 Alkaline Phosphatase 81 U/L 34-104 Alt 8 U/L 7-52 Ast 13 U/L 13-39 Egfr Non- 121.4 >60 Egfr 156.2 >60 3 Laboratory test finding 06/03/2017 Inr 1.90 High 0.89-1.11 4 Inr/Protime 06/01/2017 Inr 4.49 High 0.89-1.11 Laboratory test finding 05/29/2017 Inr 6.00 High 0.89-1.11 CBC Auto Diff 05/25/2017 White Blood Count 12.5 10^3/uL High 3.5-10.8 Red Blood Count 3.43 10^6/uL Low 4.0-5.4 Hemoglobin 9.7 g/dL Low 14.0-18.0 Hematocrit 30 % Low 42-52 Mean Corpuscular Volume 88 fL 80-94 Mean Corpuscular Hemoglobin 28 pg 27-31 Mean Corpuscular HGB Conc 32 g/dL 31-36 Red Cell Distribution Width 19 % High 10.5-15 Platelet Count 482 10^3/uL High 150-450 Mean Platelet Volume 8 um3 7.4-10.4 Abs Neutrophils 11.5 10^3/uL High 1.5-7.7 Abs Lymphocytes 0.3 10^3/uL Low 1.0-4.8 Abs Monocytes 0.6 10^3/uL 0-0.8 Abs Eosinophils 0 10^3/uL 0-0.6 Abs Basophils 0 10^3/uL 0-0.2 Abs Nucleated RBC 0.02 10^3/uL Granulocyte % 92.2 % High 38-83 Lymphocyte % 2.7 % Low 25-47 Monocyte % 4.8 % 1-9 Eosinophil % 0 % 0-6 Basophil % 0.3 % 0-2 Nucleated Red Blood Cells % 0.1 Basic Metabolic Panel 05/25/2017 Sodium 134 mmol/L 133-145 Potassium 4.4 mmol/L 3.5-5.0 Chloride 96 mmol/L Low 101-111 Co2 Carbon Dioxide 32 mmol/L 22-32 Anion Gap 6 mmol/L 2-11 Glucose 145 mg/dL High 70-100 Blood Urea Nitrogen 18 mg/dL 6-24 Creatinine 0.54 mg/dL Low 0.67-1.17 BUN/Creatinine Ratio 33.3 High 8-20 Calcium 9.1 mg/dL 8.6-10.3 Egfr Non- 150.4 >60 Egfr 193.4 >60 5 Laboratory test finding 05/25/2017 Magnesium 2.0 mg/dL 1.9-2.7 Manual Differential 05/25/2017 Immature Granulocytes 7 % 0-9 Neutrophil % 84 % High 38-83 Band % 6 % 0-8 Lymphocytes % 2 % Low 25-47 Monocytes % 7 % 0-13 Myelocytes % 1 % 0-1 Polychromasia 2+ Laboratory test finding 05/25/2017 Inr 1.67 High 0.89-1.11 CBC Auto Diff 05/12/2017 White Blood Count 7.1 10^3/uL 3.5-10.8 Red Blood Count 3.39 10^6/uL Low 4.0-5.4 Hemoglobin 9.3 g/dL Low 14.0-18.0 Hematocrit 29 % Low 42-52 Mean Corpuscular Volume 86 fL 80-94 Mean Corpuscular Hemoglobin 28 pg 27-31 Mean Corpuscular HGB Conc 32 g/dL 31-36 Red Cell Distribution Width 19 % High 10.5-15 Platelet Count 418 10^3/uL 150-450 Mean Platelet Volume 7 um3 Low 7.4-10.4 Abs Neutrophils 4.9 10^3/uL 1.5-7.7 Abs Lymphocytes 0.6 10^3/uL Low 1.0-4.8 Abs Monocytes 1.4 10^3/uL High 0-0.8 Abs Eosinophils 0.1 10^3/uL 0-0.6 Abs Basophils 0.1 10^3/uL 0-0.2 Abs Nucleated RBC 0.01 10^3/uL Granulocyte % 69.6 % 38-83 Lymphocyte % 8.4 % Low 25-47 Monocyte % 19.4 % High 1-9 Eosinophil % 1.3 % 0-6 Basophil % 1.3 % 0-2 Nucleated Red Blood Cells % 0.1 Laboratory test finding 05/12/2017 Troponin I 0.01 ng/mL <0.04 Comp Metabolic Panel 05/12/2017 Sodium 129 mmol/L Low 133-145 Potassium 3.9 mmol/L 3.5-5.0 Chloride 92 mmol/L Low 101-111 Co2 Carbon Dioxide 27 mmol/L 22-32 Anion Gap 10 mmol/L 2-11 Glucose 87 mg/dL 70-100 Blood Urea Nitrogen 12 mg/dL 6-24 Creatinine 0.58 mg/dL Low 0.67-1.17 BUN/Creatinine Ratio 20.7 High 8-20 Calcium 8.8 mg/dL 8.6-10.3 Total Protein 6.5 g/dL 6.4-8.9 Albumin 3.4 g/dL 3.2-5.2 Globulin 3.1 g/dL 2-4 Albumin/Globulin Ratio 1.1 1-3 Total Bilirubin 0.40 mg/dL 0.2-1.0 Alkaline Phosphatase 125 U/L High 34-104 Alt 9 U/L 7-52 Ast 18 U/L 13-39 Egfr Non- 138.5 >60 Egfr 178.1 >60 6 Laboratory test finding 05/12/2017 Lactic Acid 0.9 mmol/L 0.5-2.0 7 Blood Culture SEE RESULT BELOW 8 Laboratory test finding 05/12/2017 International Normalized Ratio 2.5 Laboratory test finding 05/04/2017 International Normalized Ratio 2.8 Laboratory test finding 04/27/2017 International Normalized Ratio 3.3 Laboratory test finding 04/07/2017 B-Type Natriuretic Peptide BNP 128 pg/mL High 9 Blood Culture SEE RESULT BELOW 10 CBC Auto Diff 04/07/2017 White Blood Count 13.6 10^3/uL High 3.5-10.8 Red Blood Count 3.78 10^6/uL Low 4.0-5.4 Hemoglobin 10.6 g/dL Low 14.0-18.0 Hematocrit 33 % Low 42-52 Mean Corpuscular Volume 88 fL 80-94 Mean Corpuscular Hemoglobin 28 pg 27-31 Mean Corpuscular HGB Conc 32 g/dL 31-36 Red Cell Distribution Width 19 % High 10.5-15 Platelet Count 530 10^3/uL High 150-450 Mean Platelet Volume 8 um3 7.4-10.4 Abs Neutrophils 10.5 10^3/uL High 1.5-7.7 Abs Lymphocytes 0.9 10^3/uL Low 1.0-4.8 Abs Monocytes 2.1 10^3/uL High 0-0.8 Abs Eosinophils 0.1 10^3/uL 0-0.6 Abs Basophils 0 10^3/uL 0-0.2 Abs Nucleated RBC 0.01 10^3/uL Granulocyte % 76.8 % 38-83 Lymphocyte % 6.8 % Low 25-47 Monocyte % 15.3 % High 1-9 Eosinophil % 1.0 % 0-6 Basophil % 0.1 % 0-2 Nucleated Red Blood Cells % 0 Laboratory test finding 04/07/2017 Troponin I 0.04 ng/mL High <0.04 11 Comp Metabolic Panel 04/07/2017 Sodium 124 mmol/L Low 133-145 Chloride 89 mmol/L Low 101-111 Co2 Carbon Dioxide 26 mmol/L 22-32 Glucose 92 mg/dL 70-100 Blood Urea Nitrogen 24 mg/dL 6-24 Creatinine 0.74 mg/dL 0.67-1.17 BUN/Creatinine Ratio 32.4 High 8-20 Calcium 9.4 mg/dL 8.6-10.3 Total Protein 6.8 g/dL 6.4-8.9 Albumin 3.2 g/dL 3.2-5.2 Globulin 3.6 g/dL 2-4 Albumin/Globulin Ratio 0.9 Low 1-3 Total Bilirubin 0.40 mg/dL 0.2-1.0 Alkaline Phosphatase 118 U/L High 34-104 Alt 24 U/L 7-52 Ast 33 U/L 13-39 Egfr Non- 104.6 >60 Egfr 134.5 >60 12 Potassium 6.1 mmol/L High 3.5-5.0 13 Anion Gap 9 mmol/L 2-11 Laboratory test finding 04/07/2017 Partial Thrombo Time 33.5 seconds 26.0 -36.3 PTT Inr/Protime 04/07/2017 Inr 1.44 High 0.89-1.11 Laboratory test finding 04/07/2017 Lactic Acid 1.2 mmol/L 0.5-2.0 14 Arterial Blood Gas 04/07/2017 O2 Device bipap Fio2 50 Vent Mode s/t Resp Rate 12 Inspiratory Time 1.0 Ipap 12 Epap 6 PH Arterial 7.41 7.35-7.45 Pco2 Arterial 43 mmHg 35-45 Po2 Arterial 79 mmHg Low 80-100 O2 Saturation Arterial 94.2 % Low 95-98 Base Excess Arterial 2.3 High -2.0-2.0 15 Hco3 Arterial 26.6 mmol/L 19-31 CBC Auto Diff 03/31/2017 White Blood Count 10.2 10^3/uL 3.5-10.8 Red Blood Count 4.24 10^6/uL 4.0-5.4 Hemoglobin 12.2 g/dL Low 14.0-18.0 Hematocrit 38 % Low 42-52 Mean Corpuscular Volume 89 fL 80-94 Mean Corpuscular Hemoglobin 29 pg 27-31 Mean Corpuscular HGB Conc 32 g/dL 31-36 Red Cell Distribution Width 19 % High 10.5-15 Platelet Count 446 10^3/uL 150-450 Mean Platelet Volume 7 um3 Low 7.4-10.4 Abs Neutrophils 9.2 10^3/uL High 1.5-7.7 Abs Lymphocytes 0.2 10^3/uL Low 1.0-4.8 Abs Monocytes 0.7 10^3/uL 0-0.8 Abs Eosinophils 0 10^3/uL 0-0.6 Abs Basophils 0 10^3/uL 0-0.2 Abs Nucleated RBC 0.01 10^3/uL Granulocyte % 90.6 % High 38-83 Lymphocyte % 2.3 % Low 25-47 Monocyte % 7.1 % 1-9 Eosinophil % 0 % 0-6 Basophil % 0 % 0-2 Nucleated Red Blood Cells % 0.1 Laboratory test 03/31/2017 B-Type Natriuretic 77 pg/mL 16 finding Peptide BNP Inr/Protime 03/31/2017 Inr 0.82 Low 0.89-1.11 Laboratory test 03/31/2017 Partial Thrombo Time 26.1 seconds 26.0-36.3 finding PTT D Dimer Quantitative 690 ng/mL High Less Than 230 17 Lactic Acid 1.4 mmol/L 0.5-2.0 18 Troponin-I (TnI) 0.02 ng/mL <0.04 CKMB 03/31/2017 CKMB ng/mL 3.6 ng/mL 0.6-6.3 Comp Metabolic Panel 03/31/2017 Sodium 133 mmol/L 133-145 Potassium 5.3 mmol/L High 3.5-5.0 Chloride 99 mmol/L Low 101-111 Co2 Carbon Dioxide 27 mmol/L 22-32 Anion Gap 7 mmol/L 2-11 Glucose 133 mg/dL High 70-100 Blood Urea Nitrogen 39 mg/dL High 6-24 Creatinine 0.99 mg/dL 0.67-1.17 BUN/Creatinine Ratio 39.4 High 8-20 Calcium 9.0 mg/dL 8.6-10.3 Total Protein 7.0 g/dL 6.4-8.9 Albumin 3.7 g/dL 3.2-5.2 Globulin 3.3 g/dL 2-4 Albumin/Globulin Ratio 1.1 1-3 Total Bilirubin 0.30 mg/dL 0.2-1.0 Alkaline Phosphatase 111 U/L High 34-104 Alt 17 U/L 7-52 Ast 15 U/L 13-39 Egfr Non- 74.7 >60 Egfr 96.1 >60 19 Laboratory test finding 03/31/2017 Magnesium 2.4 mg/dL 1.9-2.7 Lipase < 10 U/L Low 11.0-82.0 Creatine Kinase 30 U/L 10-223 C Reactive Protein 46.36 mg/L High < 5.00 20 TSH (Thyroid Stimulating Horm) 0.37 mcIU/mL 0.34-5.60 Urinalysis Profile 03/31/2017 Urine Color Yellow Urine Appearance Clear Urine Specific [place] 1.028 1.010-1.030 Urine pH 5.0 5-9 Urine Urobilinogen Negative Negative Urine Ketones Negative Negative Urine Protein Negative Negative Urine Leukocytes Negative Negative Urine Blood Negative Negative Urine Nitrite Negative Negative Urine Bilirubin Negative Negative Urine Glucose Negative Negative Laboratory test finding 03/31/2017 Blood Culture SEE RESULT BELOW 21 Laboratory test finding 03/01/2017 Inr 0.89 0.89-1.11 CBC Auto Diff 03/01/2017 White Blood Count 9.8 10^3/uL 3.5-10.8 Red Blood Count 3.87 10^6/uL Low 4.0-5.4 Hemoglobin 11.0 g/dL Low 14.0-18.0 Hematocrit 34 % Low 42-52 Mean Corpuscular Volume 87 fL 80-94 Mean Corpuscular Hemoglobin 29 pg 27-31 Mean Corpuscular HGB Conc 33 g/dL 31-36 Red Cell Distribution Width 17 % High 10.5-15 Platelet Count 425 10^3/uL 150-450 Mean Platelet Volume 8 um3 7.4-10.4 Abs Neutrophils 6.9 10^3/uL 1.5-7.7 Abs Lymphocytes 1.3 10^3/uL 1.0-4.8 Abs Monocytes 1.2 10^3/uL High 0-0.8 Abs Eosinophils 0.3 10^3/uL 0-0.6 Abs Basophils 0.1 10^3/uL 0-0.2 Abs Nucleated RBC 0 10^3/uL Granulocyte % 70.3 % 38-83 Lymphocyte % 12.9 % Low 25-47 Monocyte % 12.7 % High 1-9 Eosinophil % 2.9 % 0-6 Basophil % 1.2 % 0-2 Nucleated Red Blood Cells % 0 Laboratory test finding 03/01/2017 Lactic Acid 0.7 mmol/L 0.5-2.0 22 Laboratory test finding 03/01/2017 Magnesium 1.8 mg/dL Low 1.9-2.7 Troponin-I (TnI) 0.02 ng/mL <0.04 Comp Metabolic Panel 03/01/2017 Sodium 133 mmol/L 133-145 Potassium 4.2 mmol/L 3.5-5.0 Chloride 103 mmol/L 101-111 Co2 Carbon Dioxide 26 mmol/L 22-32 Anion Gap 4 mmol/L 2-11 Glucose 101 mg/dL High 70-100 Blood Urea Nitrogen 24 mg/dL 6-24 Creatinine 0.77 mg/dL 0.67-1.17 BUN/Creatinine Ratio 31.2 High 8-20 Calcium 9.2 mg/dL 8.6-10.3 Total Protein 6.8 g/dL 6.4-8.9 Total Bilirubin 0.30 mg/dL 0.2-1.0 Alkaline Phosphatase 99 U/L 34-104 Alt 19 U/L 7-52 Ast 22 U/L 13-39 Egfr Non- 99.9 >60 Egfr 128.4 >60 23 Albumin 3.6 g/dL 3.2-5.2 Globulin 3.2 g/dL 2-4 Albumin/Globulin Ratio 1.1 1-3 CBC Auto Diff 02/23/2017 White Blood Count 13.0 10^3/uL High 3.5-10.8 24 Red Blood Count 4.15 10^6/uL 4.0-5.4 24 Hemoglobin 11.7 g/dL Low 14.0-18.0 24 Hematocrit 37 % Low 42-52 24 Mean Corpuscular Volume 89 fL 80-94 24 Mean Corpuscular Hemoglobin 28 pg 27-31 24 Mean Corpuscular HGB Conc 32 g/dL 31-36 24 Red Cell Distribution Width 16 % High 10.5-15 24 Platelet Count 311 10^3/uL 150-450 24 Mean Platelet Volume 7 um3 Low 7.4-10.4 24 Abs Neutrophils 10.3 10^3/uL High 1.5-7.7 24 Abs Lymphocytes 0.9 10^3/uL Low 1.0-4.8 24 Abs Monocytes 1.5 10^3/uL High 0-0.8 24 Abs Eosinophils 0.2 10^3/uL 0-0.6 24 Abs Basophils 0.1 10^3/uL 0-0.2 24 Abs Nucleated RBC 0.01 10^3/uL 24 Granulocyte % 79.1 % 38-83 24 Lymphocyte % 7.1 % Low 25-47 24 Monocyte % 11.8 % High 1-9 24 Eosinophil % 1.4 % 0-6 24 Basophil % 0.6 % 0-2 24 Nucleated Red Blood Cells % 0 24 Laboratory test 02/23/2017 Surgical Interface SEE RESULT BELOW 25 finding Order Laboratory test 02/04/2017 Ferritin 75.2 ng/mL 24-336 finding Iron & Iron 02/04/2017 Iron 41 g/dL Low 50-212 Binding Capacity Unsaturated Iron Binding 340 g/dL Total Iron Binding Capacity 381 g/dL 250-450 % Iron Saturation 11 % Low 15-55 CBC Auto Diff 02/04/2017 White Blood Count 7.3 10^3/uL 3.5-10.8 Red Blood Count 4.16 10^6/uL 4.0-5.4 Hemoglobin 12.2 g/dL Low 14.0-18.0 Hematocrit 38 % Low 42-52 Mean Corpuscular Volume 91 fL 80-94 Mean Corpuscular Hemoglobin 29 pg 27-31 Mean Corpuscular HGB Conc 32 g/dL 31-36 Red Cell Distribution Width 16 % High 10.5-15 Platelet Count 494 10^3/uL High 150-450 Mean Platelet Volume 8 um3 7.4-10.4 Abs Neutrophils 5.2 10^3/uL 1.5-7.7 Abs Lymphocytes 1.1 10^3/uL 1.0-4.8 Abs Monocytes 0.9 10^3/uL High 0-0.8 Abs Eosinophils 0 10^3/uL 0-0.6 Abs Basophils 0.1 10^3/uL 0-0.2 Abs Nucleated RBC 0 10^3/uL Granulocyte % 71.3 % 38-83 Lymphocyte % 14.5 % Low 25-47 Monocyte % 12.6 % High 1-9 Eosinophil % 0.3 % 0-6 Basophil % 1.3 % 0-2 Nucleated Red Blood Cells % 0 Comp Metabolic Panel 01/06/2017 Sodium 136 mmol/L 133-145 Potassium 4.3 mmol/L 3.5-5.0 Chloride 101 mmol/L 101-111 Co2 Carbon Dioxide 25 mmol/L 22-32 Anion Gap 10 mmol/L 2-11 Glucose 96 mg/dL 70-100 Blood Urea Nitrogen 14 mg/dL 6-24 Creatinine 0.70 mg/dL 0.67-1.17 BUN/Creatinine Ratio 20.0 8-20 Calcium 9.0 mg/dL 8.6-10.3 Total Protein 6.5 g/dL 6.4-8.9 Albumin 3.7 g/dL 3.2-5.2 Globulin 2.8 g/dL 2-4 Albumin/Globulin Ratio 1.3 1-3 Total Bilirubin 0.40 mg/dL 0.2-1.0 Alkaline Phosphatase 64 U/L 34-104 Alt 15 U/L 7-52 Ast 17 U/L 13-39 Egfr Non- 111.5 >60 Egfr 143.4 >60 26 CBC Auto Diff 12/31/2016 White Blood Count 8.6 10^3/uL 3.5-10.8 Red Blood Count 3.52 10^6/uL Low 4.0-5.4 Hemoglobin 10.5 g/dL Low 14.0-18.0 Hematocrit 33 % Low 42-52 Mean Corpuscular Volume 94 fL 80-94 Mean Corpuscular Hemoglobin 30 pg 27-31 Mean Corpuscular HGB Conc 32 g/dL 31-36 Red Cell Distribution Width 17 % High 10.5-15 Platelet Count 495 10^3/uL High 150-450 Mean Platelet Volume 7 um3 Low 7.4-10.4 Abs Neutrophils 6.0 10^3/uL 1.5-7.7 Abs Lymphocytes 1.3 10^3/uL 1.0-4.8 Abs Monocytes 1.1 10^3/uL High 0-0.8 Abs Eosinophils 0.1 10^3/uL 0-0.6 Abs Basophils 0.1 10^3/uL 0-0.2 Abs Nucleated RBC 0.01 10^3/uL Granulocyte % 70.3 % 38-83 Lymphocyte % 14.8 % Low 25-47 Monocyte % 13.1 % High 1-9 Eosinophil % 0.9 % 0-6 Basophil % 0.9 % 0-2 Nucleated Red Blood Cells % 0.1 Laboratory test finding 12/31/2016 Ferritin 243.5 ng/mL 24-336 27 Manual Differential 12/31/2016 Immature Granulocytes 5 % 0-9 Neutrophil % 71 % 38-83 Band % 1 % 0-8 Lymphocytes % 17 % Low 25-47 Monocytes % 5 % 0-13 Eosinophils % 1 % 0-6 Basophil % 1 % 0-2 Metamyelocytes % 1 % 0-2 Myelocytes % 3 % High 0-1 Macrocytosis 1+ Hypochromasia 1+ Polychromasia 1+ [place] Cells 1+ Laboratory test 12/09/2016 D Dimer Quantitative < 200 ng/mL Less Than 230 28 finding Manual Differential 12/09/2016 Immature Granulocytes 8 % 0-9 Neutrophil % 82 % 38-83 Band % 1 % 0-8 Lymphocytes % 3 % Low 25-47 Monocytes % 7 % 0-13 Metamyelocytes % 3 % High 0-2 Myelocytes % 4 % High 0-1 Nucleated Red Blood Cells/100 1 High 0-0 Toxic Granulation 2+ Laboratory test finding 12/09/2016 B Type Natriuretic 104 pg/mL High 29 Peptide Comp Metabolic Panel 12/09/2016 Sodium 131 mmol/L Low 133-145 Potassium 4.9 mmol/L 3.5-5.0 Chloride 96 mmol/L Low 101-111 Co2 Carbon Dioxide 27 mmol/L 22-32 Anion Gap 8 mmol/L 2-11 Glucose 251 mg/dL High 70-100 Blood Urea Nitrogen 81 mg/dL High 6-24 Creatinine 1.25 mg/dL High 0.67-1.17 BUN/Creatinine Ratio 64.8 High 8-20 Calcium 8.5 mg/dL Low 8.6-10.3 Total Protein 5.3 g/dL Low 6.4-8.9 Albumin 2.7 g/dL Low 3.2-5.2 Globulin 2.6 g/dL 2-4 Albumin/Globulin Ratio 1.0 1-3 Total Bilirubin 0.40 mg/dL 0.2-1.0 Alkaline Phosphatase 29 U/L Low 34-104 Alt 28 U/L 7-52 Ast 17 U/L 13-39 Egfr Non- 57.1 >60 Egfr 73.4 >60 30 Laboratory test finding 12/09/2016 Troponin I 0.06 ng/mL High <0.04 31 CBC Auto Diff 12/09/2016 White Blood Count 26.2 10^3/uL High 3.5-10.8 Red Blood Count 2.71 10^6/uL Low 4.0-5.4 Hemoglobin 8.3 g/dL Low 14.0-18.0 Hematocrit 25 % Low 42-52 Mean Corpuscular Volume 92 fL 80-94 Mean Corpuscular Hemoglobin 31 pg 27-31 Mean Corpuscular HGB Conc 33 g/dL 31-36 Red Cell Distribution Width 14 % 10.5-15 Platelet Count 221 10^3/uL 150-450 Mean Platelet Volume 8 um3 7.4-10.4 Abs Neutrophils 22.8 10^3/uL High 1.5-7.7 Abs Lymphocytes 0.8 10^3/uL Low 1.0-4.8 Abs Monocytes 2.4 10^3/uL High 0-0.8 Abs Eosinophils 0 10^3/uL 0-0.6 Abs Basophils 0.1 10^3/uL 0-0.2 Abs Nucleated RBC 0.11 10^3/uL Granulocyte % 87.2 % High 38-83 Lymphocyte % 3.2 % Low 25-47 Monocyte % 9.3 % High 1-9 Eosinophil % 0 % 0-6 Basophil % 0.3 % 0-2 Nucleated Red Blood Cells % 0.4 Laboratory test finding 12/09/2016 Inr/Protime 1.55 High 0.89-1.11 Lactic Acid 3.6 mmol/L High 0.5-2.0 32 Laboratory test finding 12/09/2016 Packed Cells SEE RESULTS BELO 33, 34 <SEE NOTE> Type & Screen 12/09/2016 Patient Blood Type A Positive 33 Antibody Screen NEGATIVE 33 Laboratory test finding 12/04/2016 Lactic Acid 0.8 mmol/L 0.5-2.0 35 Comp Metabolic Panel 12/04/2016 Sodium 126 mmol/L Low 133-145 Potassium 4.3 mmol/L 3.5-5.0 Chloride 94 mmol/L Low 101-111 Co2 Carbon Dioxide 25 mmol/L 22-32 Anion Gap 7 mmol/L 2-11 Glucose 90 mg/dL 70-100 Blood Urea Nitrogen 29 mg/dL High 6-24 Creatinine 0.66 mg/dL Low 0.67-1.17 BUN/Creatinine Ratio 43.9 High 8-20 Calcium 9.2 mg/dL 8.6-10.3 Total Protein 6.3 g/dL Low 6.4-8.9 Albumin 3.4 g/dL 3.2-5.2 Globulin 2.9 g/dL 2-4 Albumin/Globulin Ratio 1.2 1-3 Total Bilirubin 0.80 mg/dL 0.2-1.0 Alkaline Phosphatase 44 U/L 34-104 Alt 27 U/L 7-52 Ast 19 U/L 13-39 Egfr Non- 119.3 >60 Egfr 153.5 >60 36 Laboratory test finding 12/04/2016 Troponin I 0.04 ng/mL High <0.04 37 CBC Auto Diff 12/04/2016 White Blood Count 19.5 10^3/uL High 3.5-10.8 Red Blood Count 4.91 10^6/uL 4.0-5.4 Hemoglobin 15.0 g/dL 14.0-18.0 Hematocrit 45 % 42-52 Mean Corpuscular Volume 91 fL 80-94 Mean Corpuscular Hemoglobin 30 pg 27-31 Mean Corpuscular HGB Conc 33 g/dL 31-36 Red Cell Distribution Width 14 % 10.5-15 Platelet Count 241 10^3/uL 150-450 Mean Platelet Volume 8 um3 7.4-10.4 Abs Neutrophils 17.3 10^3/uL High 1.5-7.7 Abs Lymphocytes 0.5 10^3/uL Low 1.0-4.8 Abs Monocytes 1.8 10^3/uL High 0-0.8 Abs Eosinophils 0 10^3/uL 0-0.6 Abs Basophils 0 10^3/uL 0-0.2 Abs Nucleated RBC 0.01 10^3/uL Granulocyte % 88.3 % High 38-83 Lymphocyte % 2.3 % Low 25-47 Monocyte % 9.1 % High 1-9 Eosinophil % 0.1 % 0-6 Basophil % 0.2 % 0-2 Nucleated Red Blood Cells % 0.1 Laboratory test 12/04/2016 Blood Culture SEE RESULT BELOW 38 finding CBC Auto Diff 11/28/2016 White Blood Count 11.8 10^3/uL High 3.5-10.8 Red Blood Count 4.92 10^6/uL 4.0-5.4 Hemoglobin 14.9 g/dL 14.0-18.0 Hematocrit 45 % 42-52 Mean Corpuscular Volume 92 fL 80-94 Mean Corpuscular Hemoglobin 30 pg 27-31 Mean Corpuscular HGB Conc 33 g/dL 31-36 Red Cell Distribution Width 15 % 10.5-15 Platelet Count 199 10^3/uL 150-450 Mean Platelet Volume 7 um3 Low 7.4-10.4 Abs Neutrophils 10.7 10^3/uL High 1.5-7.7 Abs Lymphocytes 0.2 10^3/uL Low 1.0-4.8 Abs Monocytes 0.8 10^3/uL 0-0.8 Abs Eosinophils 0 10^3/uL 0-0.6 Abs Basophils 0 10^3/uL 0-0.2 Abs Nucleated RBC 0.01 10^3/uL Granulocyte % 91.3 % High 38-83 Lymphocyte % 1.7 % Low 25-47 Monocyte % 6.6 % 1-9 Eosinophil % 0 % 0-6 Basophil % 0.4 % 0-2 Nucleated Red Blood Cells % 0.1 Laboratory test finding 11/28/2016 B-Type Natriuretic Peptide BNP 81 pg/mL 39 Rapid Influenza A & B Antigen SEE RESULT BELOW 40 Lactic Acid 1.3 mmol/L 0.5-2.0 41 Comp Metabolic Panel 11/28/2016 Sodium 128 mmol/L Low 133-145 Potassium 5.1 mmol/L High 3.5-5.0 Chloride 96 mmol/L Low 101-111 Co2 Carbon Dioxide 24 mmol/L 22-32 Anion Gap 8 mmol/L 2-11 Glucose 108 mg/dL High 70-100 Blood Urea Nitrogen 27 mg/dL High 6-24 Creatinine 0.82 mg/dL 0.67-1.17 BUN/Creatinine Ratio 32.9 High 8-20 Calcium 8.8 mg/dL 8.6-10.3 Total Protein 6.6 g/dL 6.4-8.9 Albumin 3.6 g/dL 3.2-5.2 Globulin 3.0 g/dL 2-4 Albumin/Globulin Ratio 1.2 1-3 Total Bilirubin 0.60 mg/dL 0.2-1.0 Alkaline Phosphatase 46 U/L 34-104 Alt 32 U/L 7-52 Ast 26 U/L 13-39 Egfr Non- 92.9 >60 Egfr 119.5 >60 42 Laboratory test finding 11/28/2016 Troponin I 0.03 ng/mL <0.04 43 D Dimer Quantitative 254 ng/mL High Less Than 230 44 C Reactive Protein 1.39 mg/L < 5.00 45 Blood Culture SEE RESULT BELOW 46 Rapid Influenza A & B 11/28/2016 Influenza A Molecular POSITIVE Negative 47 Molecular Influenza B Molecular NEGATIVE Negative CBC Auto Diff 11/19/2016 White Blood Count 22.2 10^3/uL High 3.5-10.8 Red Blood Count 4.80 10^6/uL 4.0-5.4 Hemoglobin 14.9 g/dL 14.0-18.0 Hematocrit 44 % 42-52 Mean Corpuscular Volume 92 fL 80-94 Mean Corpuscular Hemoglobin 31 pg 27-31 Mean Corpuscular HGB Conc 34 g/dL 31-36 Red Cell Distribution Width 15 % 10.5-15 Platelet Count 201 10^3/uL 150-450 Mean Platelet Volume 8 um3 7.4-10.4 Abs Neutrophils 19.7 10^3/uL High 1.5-7.7 Abs Lymphocytes 0.8 10^3/uL Low 1.0-4.8 Abs Monocytes 1.4 10^3/uL High 0-0.8 Abs Eosinophils 0 10^3/uL 0-0.6 Abs Basophils 0.3 10^3/uL High 0-0.2 Abs Nucleated RBC 0 10^3/uL Granulocyte % 88.9 % High 38-83 Lymphocyte % 3.6 % Low 25-47 Monocyte % 6.4 % 1-9 Eosinophil % 0 % 0-6 Basophil % 1.1 % 0-2 Nucleated Red Blood Cells % 0 Comp Metabolic Panel 11/19/2016 Sodium 135 mmol/L 133-145 Potassium 3.6 mmol/L 3.5-5.0 Chloride 100 mmol/L Low 101-111 Co2 Carbon Dioxide 31 mmol/L 22-32 Anion Gap 4 mmol/L 2-11 Glucose 144 mg/dL High 70-100 Blood Urea Nitrogen 16 mg/dL 6-24 Creatinine 0.58 mg/dL Low 0.67-1.17 BUN/Creatinine Ratio 27.6 High 8-20 Calcium 9.1 mg/dL 8.6-10.3 Total Protein 6.6 g/dL 6.4-8.9 Albumin 3.6 g/dL 3.2-5.2 Globulin 3.0 g/dL 2-4 Albumin/Globulin Ratio 1.2 1-3 Total Bilirubin 0.90 mg/dL 0.2-1.0 Alkaline Phosphatase 41 U/L 34-104 Alt 27 U/L 7-52 Ast 13 U/L 13-39 Egfr Non- 138.5 >60 Egfr 178.1 >60 48 Laboratory test finding 11/19/2016 C Reactive Protein 81.59 mg/L High &lt ; 5.00 49 Troponin I 0.04 ng/mL High <0.04 50 Lactic Acid 1.9 mmol/L 0.5-2.0 51 Lipid Profile (Trig/Chol/HDL) 12/13/2015 Triglycerides 94 mg/dL 52 Cholesterol 209 mg/dL 53 HDL Cholesterol 83.8 mg/dL 54 LDL Cholesterol 106 mg/dL 55 Basic Metabolic Panel 12/13/2015 Sodium 137 mmol/L 133-145 Potassium 3.9 mmol/L 3.5-5.0 Chloride 101 mmol/L 101-111 Co2 Carbon Dioxide 30 mmol/L 22-32 Anion Gap 6 mmol/L 2-11 Glucose 89 mg/dL 70-100 Blood Urea Nitrogen 22 mg/dL 6-24 Creatinine 0.84 mg/dL 0.67-1.17 BUN/Creatinine Ratio 26.2 High 8-20 Calcium 9.1 mg/dL 8.6-10.3 Egfr Non- 90.6 >60 Egfr 116.5 >60 56 Basic Metabolic Panel 08/20/2015 Sodium 137 mmol/L 133-145 Potassium 3.8 mmol/L 3.5-5.0 Chloride 102 mmol/L 101-111 Co2 Carbon Dioxide 25 mmol/L 22-32 Anion Gap 10 mmol/L 2-11 Glucose 131 mg/dL High 70-100 Blood Urea Nitrogen 17 mg/dL 6-24 Creatinine 0.66 mg/dL Low 0.67-1.17 BUN/Creatinine Ratio 25.8 High 8-20 Calcium 9.1 mg/dL 8.6-10.3 Egfr Non- 120.0 >60 Egfr 154.4 >60 57 Basic Metabolic Panel 07/30/2015 Sodium 135 mmol/L 133-145 Potassium 3.8 mmol/L 3.5-5.0 Chloride 101 mmol/L 101-111 Co2 Carbon Dioxide 27 mmol/L 22-32 Anion Gap 7 mmol/L 2-11 Glucose 98 mg/dL 70-100 Blood Urea Nitrogen 19 mg/dL 6-24 Creatinine 0.70 mg/dL 0.67-1.17 BUN/Creatinine Ratio 27.1 High 8-20 Calcium 9.1 mg/dL 8.6-10.3 Egfr Non- 112.1 >60 Egfr 144.2 >60 58 Electrolytes 07/02/2015 Sodium 132 mmol/L Low 133-145 Potassium 4.1 mmol/L 3.5-5.0 Chloride 99 mmol/L Low 101-111 Co2 Carbon Dioxide 25 mmol/L 22-32 Anion Gap 8 mmol/L 2-11 Basic Metabolic Panel 06/25/2015 Sodium 133 mmol/L 133-145 Potassium 4.4 mmol/L 3.5-5.0 Chloride 97 mmol/L Low 101-111 Co2 Carbon Dioxide 30 mmol/L 22-32 Anion Gap 6 mmol/L 2-11 Glucose 92 mg/dL 70-100 Blood Urea Nitrogen 15 mg/dL 6-24 Creatinine 0.75 mg/dL 0.67-1.17 BUN/Creatinine Ratio 20.0 8-20 Calcium 9.2 mg/dL 8.6-10.3 Egfr Non- 103.6 >60 Egfr 133.2 >60 59 Basic Metabolic Panel 06/22/2015 Sodium 132 mmol/L Low 133-145 Potassium 4.3 mmol/L 3.5-5.0 Chloride 98 mmol/L Low 101-111 Co2 Carbon Dioxide 28 mmol/L 22-32 Anion Gap 6 mmol/L 2-11 Glucose 87 mg/dL 70-100 Blood Urea Nitrogen 16 mg/dL 6-24 Creatinine 0.76 mg/dL 0.67-1.17 BUN/Creatinine Ratio 21.1 High 8-20 Calcium 8.9 mg/dL 8.6-10.3 Egfr Non- 102.0 >60 Egfr 131.2 >60 60 Basic Metabolic Panel 06/20/2015 Potassium 4.1 mmol/L 3.5-5.0 Chloride 88 mmol/L Low 101-111 Co2 Carbon Dioxide 21 mmol/L Low 22-32 Glucose 97 mg/dL 70-100 Blood Urea Nitrogen 10 mg/dL 6-24 Creatinine 0.51 mg/dL Low 0.67-1.17 BUN/Creatinine Ratio 19.6 8-20 Calcium 7.7 mg/dL Low 8.6-10.3 Egfr Non- 161.6 >60 Egfr 207.9 >60 61 Sodium 118 mmol/L Low 133-145 Anion Gap 9 mmol/L 2-11 Laboratory test finding 06/19/2015 TSH (Thyroid Stim Horm) 2.19 ?IU/mL 0.34-5.60 62 Magnesium 1.7 mg/dL Low 1.9-2.7 63 Comp Metabolic Panel 06/19/2015 Potassium 3.9 mmol/L 3.5-5.0 Chloride 83 mmol/L Low 101-111 Co2 Carbon Dioxide 24 mmol/L 22-32 Glucose 76 mg/dL 70-100 Blood Urea Nitrogen 10 mg/dL 6-24 Creatinine 0.50 mg/dL Low 0.67-1.17 BUN/Creatinine Ratio 20.0 8-20 Calcium 8.6 mg/dL 8.6-10.3 Total Protein 6.9 g/dL 6.4-8.9 Albumin 4.0 g/dL 3.2-5.2 Globulin 2.9 g/dL 2-4 Albumin/Globulin Ratio 1.4 1-3 Total Bilirubin 1.00 mg/dL 0.2-1.0 Alkaline Phosphatase 62 U/L 34-104 Alt 11 U/L 7-52 Ast 21 U/L 13-39 Egfr Non- 165.4 >60 Egfr 212.7 >60 64 Sodium 118 mmol/L Low 133-145 Anion Gap 11 mmol/L 2-11 Laboratory test finding 06/19/2015 Sodium Random Urine 71 mmol/L Potassium Random Urine 24.5 mmol/L Urine Random Chloride 69 mmol/L Urine Osmolality 270 mOsm/kg 150-1150 CBC Auto Diff 06/19/2015 White Blood Count 9.8 10^3/uL 4.8-10.8 Red Blood Count 4.77 10^6/uL 4.0-5.4 Hemoglobin 14.7 g/dL 14.0-18.0 Hematocrit 43 % 42-52 Mean Corpuscular Volume 91 fL 80-94 Mean Corpuscular Hemoglobin 31 pg 27-31 Mean Corpuscular HGB Conc 34 g/dL 31-36 Red Cell Distribution Width 13 % 10.5-15 Platelet Count 354 10^3/uL 150-450 Mean Platelet Volume 7 um3 Low 7.4-10.4 Abs Neutrophils 9.0 10^3/uL High 1.5-7.7 Abs Lymphocytes 0.5 10^3/uL Low 1.0-4.8 Abs Monocytes 0.2 10^3/uL 0-0.8 Abs Eosinophils 0 10^3/uL 0-0.6 Abs Basophils 0 10^3/uL 0-0.2 Abs Nucleated RBC 0.01 10^3/uL Granulocyte % 91.7 % High 38-83 Lymphocyte % 5.3 % Low 25-47 Monocyte % 2.4 % 1-9 Eosinophil % 0.3 % 0-6 Basophil % 0.3 % 0-2 Nucleated Red Blood Cells % 0.1 Comp Metabolic Panel 06/19/2015 Potassium 4.1 mmol/L 3.5-5.0 Chloride 81 mmol/L Low 101-111 Co2 Carbon Dioxide 21 mmol/L Low 22-32 Glucose 91 mg/dL 70-100 Blood Urea Nitrogen 11 mg/dL 6-24 Creatinine 0.61 mg/dL Low 0.67-1.17 BUN/Creatinine Ratio 18.0 8-20 Calcium 9.1 mg/dL 8.6-10.3 Total Protein 7.5 g/dL 6.4-8.9 Albumin 4.0 g/dL 3.2-5.2 Globulin 3.5 g/dL 2-4 Albumin/Globulin Ratio 1.1 1-3 Total Bilirubin 1.10 mg/dL High 0.2-1.0 Alkaline Phosphatase 72 U/L 34-104 Alt 12 U/L 7-52 Ast 22 U/L 13-39 Egfr Non- 131.5 >60 Egfr 169.1 >60 65 Sodium 114 mmol/L Low 133-145 66 Anion Gap 12 mmol/L High 2-11 Laboratory test finding 06/19/2015 Magnesium 1.8 mg/dL Low 1.9-2.7 Urinalysis Profile 06/19/2015 Urine Color Straw Urine Appearance Clear Urine Specific [place] 1.006 Low 1.010-1.030 Urine pH 6.0 5-9 Urine Urobilinogen Negative Negative Urine Ketones 1+ Negative Urine Protein Negative Negative Urine Leukocytes Negative Negative Urine Blood Negative Negative Urine Nitrite Negative Negative Urine Bilirubin Negative Negative Urine Glucose Negative Negative CBC Auto Diff 06/19/2015 White Blood Count 8.8 10^3/uL 4.8-10.8 Red Blood Count 4.71 10^6/uL 4.0-5.4 Hemoglobin 14.1 g/dL 14.0-18.0 Hematocrit 43 % 42-52 Mean Corpuscular Volume 92 fL 80-94 Mean Corpuscular Hemoglobin 30 pg 27-31 Mean Corpuscular HGB Conc 33 g/dL 31-36 Red Cell Distribution Width 13 % 10.5-15 Platelet Count 390 10^3/uL 150-450 Mean Platelet Volume 8 um3 7.4-10.4 Abs Neutrophils 6.1 10^3/uL 1.5-7.7 Abs Lymphocytes 1.3 10^3/uL 1.0-4.8 Abs Monocytes 1.1 10^3/uL High 0-0.8 Abs Eosinophils 0.3 10^3/uL 0-0.6 Abs Basophils 0.1 10^3/uL 0-0.2 Abs Nucleated RBC 0 10^3/uL Granulocyte % 69.4 % 38-83 Lymphocyte % 14.5 % Low 25-47 Monocyte % 12.4 % High 1-9 Eosinophil % 3.0 % 0-6 Basophil % 0.7 % 0-2 Nucleated Red Blood Cells % 0 Rapid Influenza A B 09/14/2014 Rapid Influenza A B (SEE NOTE) 67 Antigen Antigen CBC Auto Diff 12/28/2013 White Blood Count 6.1 10^3/uL 4.8-10.8 Red Blood Count 4.53 10^6/uL 4.0-5.4 Hemoglobin 14.4 g/dL 14.0-18.0 Hematocrit 42 % 42-52 Mean Corpuscular Volume 93 fL 80-94 Mean Corpuscular Hemoglobin 32 pg High 27-31 Mean Corpuscular HGB Conc 34 g/dL 31-36 Red Cell Distribution Width 14 % 10.5-15 Platelet Count 282 10^3/uL 150-450 Mean Platelet Volume 8 um3 7.4-10.4 Abs Neutrophils 3.6 10^3/uL 1.5-7.7 Abs Lymphocytes 1.5 10^3/uL 1.0-4.8 Abs Monocytes 0.9 10^3/uL High 0-0.8 Abs Eosinophils 0.2 10^3/uL 0-0.6 Abs Basophils 0.1 10^3/uL 0-0.2 Abs Nucleated RBC 0 10^3/uL Granulocyte % 57.8 % 38-83 Lymphocyte % 24.6 % Low 25-47 Monocyte % 14.0 % High 1-9 Eosinophil % 2.5 % 0-6 Basophil % 1.1 % 0-2 Nucleated Red Blood Cells % 0 Comp Metabolic Panel 12/28/2013 Sodium 134 mmol/L 133-145 Potassium 4.2 mmol/L 3.7-5.6 Chloride 101 mmol/L 101-111 Co2 Carbon Dioxide 29 mmol/L 22-32 Anion Gap 4 mmol/L 2-11 Glucose 89 mg/dL 70-100 Blood Urea Nitrogen 18 mg/dL 6-24 Creatinine 0.83 mg/dL 0.67-1.17 BUN/Creatinine Ratio 21.7 High 8-20 Calcium 8.9 mg/dL 8.6-10.3 Total Protein 6.4 g/dL 6.4-8.9 Albumin 4.3 g/dL 3.2-5.2 Globulin 2.1 g/dL 2-4 Albumin/Globulin Ratio 2.0 1-3 Total Bilirubin 0.60 mg/dL 0.2-1.0 Alkaline Phosphatase 44 U/L 34-104 Alt 14 U/L 7-52 Ast 16 U/L 13-39 Egfr Non- 92.4 >60 Egfr 118.8 >60 68 Lipid Profile (Trig/Chol/HDL) 12/28/2013 Triglycerides 48 mg/dL 69 Cholesterol 187 mg/dL 70 HDL Cholesterol 64.2 mg/dL 71 LDL Cholesterol 113 mg/dL 72 Laboratory test finding 12/28/2013 Creatine Kinase 109 U/L 10-223 73 Urine DIP 12/21/2013 Specific [place] 1.015 1.01-1.02 Urine pH 5 5-6 Leukocytes NEG Neg Urine Nitrites NEG Neg Total Protein, Urine NEG Neg Urine Glucose NORM Norm Urine Ketones NEG Neg Urobilinogen NORM Norm Urine Bilirubin NEG Neg Urine Blood NEG Neg Lipid Profile (Trig/Chol/HDL) 03/21/2013 Triglycerides 75 mg/dL 40-200 Cholesterol 206 mg/dL High Less than 200 HDL Cholesterol 92 mg/dL High 40-60 74 Cholesterol/HDL Ratio 2.2 Average 1-4.44 LDL Cholesterol 99.0 Less Than 100 75 Comp Metabolic Panel 03/21/2013 Sodium 133 mmol/L 133-145 Potassium 4.4 mmol/L 3.5-5.0 Chloride 99 mmol/L Low 101-111 Co2 Carbon Dioxide 29.0 mmol/L 22-32 Anion Gap 5.0 mmol/L 2-11 Glucose 98 mg/dL 70-100 Blood Urea Nitrogen 14 mg/dL 6-24 Creatinine 0.80 mg/dL 0.50-1.40 BUN/Creatinine Ratio 17.5 8-20 Calcium 9.3 mg/dL 8.1-9.9 Total Protein 6.5 g/dL 6.2-8.1 Albumin 4.0 g/dL 3.2-5.2 Globulin 2.5 g/dL 2-4 Albumin/Globulin Ratio 1.6 1-3 Total Bilirubin 0.9 mg/dL 0.4-1.5 Alkaline Phosphatase 48 U/L 30-110 Alt 15 U/L 14-54 Ast 18 U/L 12-42 Egfr Non- 96.7 >60 Egfr 124.4 >60 76 Laboratory test finding 03/21/2013 Creatine Kinase 55 U/L 0-200 77 Surgical Pathology 01/12/2013 S RUN DATE: <SEE NOTE> Laboratory test finding 12/29/2012 PSA Diagnostic 0.00 ng/mL 0-4.0 79 Flu Test A, B, Or A & 10/06/2012 Influenza A Antigen NEG B,Binaxn Influenza B Antigen NEG Liver Panel 08/02/2012 Total Protein 6.3 GM/DL 6.2-8.1 Albumin 4.0 GM/DL 3.2-5.2 Globulin 2.3 GM/DL 2-4 Albumin/Globulin Ratio 1.7 1-3 Total Bilirubin 0.7 mg/dL 0.1-1.0 80 Direct Bilirubin 0.1 mg/dL 0.1-0.5 Indirect Bilirubin 0.6 mg/dL 0.3-1.0 Alkaline Phosphatase 41 U/L 30-110 Alt 17 U/L 14-54 Ast 21 U/L 12-42 Laboratory test 05/03/2012 Fungus Culture 81 finding Skin/Nails <SEE NOTE> Fungal Identification 05/03/2012 M 82 - Corley <SEE NOTE> Fungus Culture Skin 05/03/2012 M 83 <SEE NOTE> Lipid Panel 04/30/2012 Triglyceride 54 mg/dL 40-200 Cholesterol 185 mg/dL Less Than 200 84 High Density Lipoprotein 76 mg/dL High 40-60 85 Cholesterol/HDL Ratio 2.43 AVERAGE 1-4.97 Low Density Lipoprotein 98 mg/dL Less Than 100 86 Laboratory test finding 04/30/2012 CPK (Creatine Kinase) 130 U/L 0-200 Laboratory test finding 12/09/2011 Culture 87 Sensitivity/Gram St - <SEE NOTE> Laboratory test finding 05/29/2011 PSA Screening 0.00 NG/ML 0-4 88 Comp Metabolic Panel 05/29/2011 Sodium 133 mmol/L Low 135-145 Potassium 4.5 mmol/L 3.5-5.0 Chloride 98 mmol/L Low 101-111 Co2 (Carbon Dioxide) 27.0 mmol/L 22-32 Anion Gap 8.0 mmol/L 2-11 89 Glucose 92 mg/dL 70-100 BUN 16 mg/dL 6-24 Creatinine 0.8 mg/dL 0.50-1.40 One Over Creatinine 1.25 BUN/Creatinine Ratio 20.0 8-20 Calcium 9.0 mg/dL 8.1-9.9 Total Protein 6.7 GM/DL 6.2-8.1 Albumin 3.3 GM/DL 3.2-5.2 Globulin 3.4 GM/DL 2-4 Albumin/Globulin Ratio 1.0 1-3 Bilirubin Total 1.0 mg/dL 0.4-1.5 90 Alkaline Phosphatase 44 U/L 39-117 Alt (SGPT) 16 U/L Low 17-63 Ast (Sgot) 15 U/L 12-42 eGFR Non- 97.3 > 60 eGFR 125.2 > 60 91 Lipid Profile (Trig/Chol/HDL) 05/29/2011 Triglyceride 65 mg/dL 40-200 Cholesterol 186 mg/dL Less Than 200 92 High Density Lipoprotein 46 mg/dL 40-60 93 Cholesterol/HDL Ratio 4.04 AVERAGE 1-4.97 Low Density Lipoprotein 127 mg/dL High Less Than 100 94 Laboratory test finding 05/29/2011 CPK (Creatine Kinase) 45 U/L 0-200 Lipid Profile (Trig/Chol/HDL) 01/15/2011 Triglyceride 64 mg/dL 40-200 Cholesterol 211 mg/dL High Less Than 200 95 High Density Lipoprotein 75 mg/dL High 40-60 96 Cholesterol/HDL Ratio 2.81 AVERAGE 1-4.97 Low Density Lipoprotein 123 mg/dL High Less Than 100 97 Laboratory test finding 01/15/2011 CPK (Creatine Kinase) 66 U/L 0-200 Comp Metabolic Panel 01/15/2011 Sodium 137 mmol/L 135-145 Potassium 4.3 mmol/L 3.5-5.0 Chloride 102 mmol/L 101-111 Co2 (Carbon Dioxide) 28.0 mmol/L 22-32 Anion Gap 7.0 mmol/L 2-11 98 Glucose 86 mg/dL 70-100 BUN 16 mg/dL 6-24 Creatinine 0.90 mg/dL 0.50-1.40 One Over Creatinine 1.10 BUN/Creatinine Ratio 17.8 8-20 Calcium 9.4 mg/dL 8.1-9.9 Total Protein 6.8 GM/DL 6.2-8.1 Albumin 4.3 GM/DL 3.2-5.2 Globulin 2.5 GM/DL 2-4 Albumin/Globulin Ratio 1.7 1-3 Bilirubin Total 0.9 mg/dL 0.4-1.5 99 Alkaline Phosphatase 53 U/L 39-117 Alt (SGPT) 13 U/L Low 17-63 Ast (Sgot) 15 U/L 12-42 eGFR Non- 85.0 > 60 eGFR 109.3 > 60 100 Laboratory test finding 10/28/2010 Blood Culture NG5 101, 102 Anaerobic Culture Bottle NG5 101, 103 CBC With Manual Diff 10/28/2010 White Blood Count 7.6 CUMM 4.8-10.8 101 Red Cell Count 4.86 CUMM 4.6-6.2 101 Hemoglobin 14.9 g/dL 14.0-18.0 101 Hematocrit 45 % 42-52 101 Mean Corpuscular Volume 93 um3 80-94 101 Mean Corpuscular Hemoglob 31 pg 27-31 101 Mean Corpuscular HGB Cone 33 g/dL 32-36 101 Redcell Distribution WDTH 14 % 10.5-15 101 Platelet Count 396 CUMM 150-450 101 Mean Platelet Volume 7.9 um3 7.4-10.4 101 Polysegmented Neutrophil 60 % 38-83 101 Band Neutrophil 1 % 0-8 101 Lymphocyte 19 % Low 25-47 101 Monocyte 16 % High 0-13 101 Eosinophil 2 % 0-6 101 Atypical Lymph 2 % 0-6 101 Absolute Neutrophil Count 4.6 101 RBC Morphology NORMAL 101 Laboratory test 10/28/2010 C Reactive Protein 0.9 mg/dL High Less Than 0.5 101 finding Basic Metabolic Panel 10/28/2010 Sodium 134 mmol/L Low 135-145 101 Potassium 3.6 mmol/L 3.5-5.0 101 Chloride 97 mmol/L Low 101-111 101 Co2 (Carbon Dioxide) 28.0 mmol/L 22-32 101 Anion Gap 9.0 mmol/L 2-11 101, 104 Glucose 84 mg/dL 70-100 101 BUN 10 mg/dL 6-24 101 Creatinine 0.75 mg/dL 0.50-1.40 101 One Over Creatinine 1.30 101 BUN/Creatinine Ratio 13.3 8-20 101 Calcium 9.0 mg/dL 8.1-9.9 101 eGFR Non- 105.2 > 60 101 eGFR 135.3 > 60 101, 105 Blood Culture 10/21/2010 Aerobic Culture Bottle NG5 106 Anaerobic Culture Bottle 10/21/2010 Anaerobic Culture Bottle NG5 107 Comp Metabolic Panel 10/21/2010 Sodium 136 mmol/L 135-145 Potassium 3.7 mmol/L 3.5-5.0 Chloride 101 mmol/L 101-111 Co2 (Carbon Dioxide) 28.0 mmol/L 22-32 Anion Gap 7.0 mmol/L 2-11 108 Glucose 104 mg/dL High 70-100 BUN 17 mg/dL 6-24 Creatinine 0.95 mg/dL 0.50-1.40 One Over Creatinine 1.00 BUN/Creatinine Ratio 17.9 8-20 Calcium 9.2 mg/dL 8.1-9.9 Total Protein 7.4 GM/DL 6.2-8.1 Albumin 4.1 GM/DL 3.2-5.2 Globulin 3.3 GM/DL 2-4 Albumin/Globulin Ratio 1.2 1-3 Bilirubin Total 0.8 mg/dL 0.4-1.5 109 Alkaline Phosphatase 52 U/L 39-117 Alt (SGPT) 15 U/L Low 17-63 Ast (Sgot) 17 U/L 12-42 eGFR Non- 80.1 > 60 eGFR 103.0 > 60 110 Laboratory test finding 10/21/2010 Troponin-I 0.01 NG/ML 0-0.06 111 CBC With Electronic Diff 10/21/2010 White Blood Count 16.2 CUMM High 4.8- 10.8 Red Cell Count 4.95 CUMM 4.6-6.2 Hemoglobin 15.6 g/dL 14.0-18.0 Hematocrit 46 % 42-52 Mean Corpuscular Volume 93 um3 80-94 Mean Corpuscular Hemoglob 32 pg High 27-31 Mean Corpuscular HGB Cone 34 g/dL 32-36 Redcell Distribution WDTH 14 % 10.5-15 Platelet Count 299 CUMM 150-450 Mean Platelet Volume 7.6 um3 7.4-10.4 Manual Differential 10/21/2010 Polysegmented Neutrophil 79 % 38-83 Band Neutrophil 6 % 0-8 Lymphocyte 10 % Low 25-47 Monocyte 5 % 0-13 Absolute Neutrophil Count 13.7 RBC Morphology NORMAL 1 STANDING ORDER ORDERED 05/26/17 ENTERED 05/29/17 EXPIRES 11/23/17 2 STANDING ORDER ORDERED 05/26/17 ENTERED 05/29/17 EXPIRES 11/23/17 3 Because ethnic data is not always readily available, this report includes an eGFR for both -Americans and non- Americans. The National Kidney Disease Education Program (NKDEP) does not endorse the use of the MDRD equation for patients that are not between the ages of 18 and 70, are , have extremes of body size, muscle mass, or nutritional status, or are non- or non-. According to the National Kidney Foundation, irrespective of diagnosis, the stage of the disease is based on the level of kidney function: Stage Description GFR(mL/min/1.73 m(2)) 1 Kidney damage with normal or decreased GFR 90 2 Kidney damage with mild decrease in GFR 60-89 3 Moderate decrease in GFR 30-59 4 Severe decrease in GFR 15-29 5 Kidney failure <15 (or dialysis) 4 STANDING ORDER ORDERED 05/26/17 ENTERED 05/29/17 EXPIRES 11/23/17 5 Because ethnic data is not always readily available, this report includes an eGFR for both -Americans and non- Americans. The National Kidney Disease Education Program (NKDEP) does not endorse the use of the MDRD equation for patients that are not between the ages of 18 and 70, are , have extremes of body size, muscle mass, or nutritional status, or are non- or non-. According to the National Kidney Foundation, irrespective of diagnosis, the stage of the disease is based on the level of kidney function: Stage Description GFR(mL/min/1.73 m(2)) 1 Kidney damage with normal or decreased GFR 90 2 Kidney damage with mild decrease in GFR 60-89 3 Moderate decrease in GFR 30-59 4 Severe decrease in GFR 15-29 5 Kidney failure <15 (or dialysis) 6 Because ethnic data is not always readily available, this report includes an eGFR for both -Americans and non- Americans. The National Kidney Disease Education Program (NKDEP) does not endorse the use of the MDRD equation for patients that are not between the ages of 18 and 70, are , have extremes of body size, muscle mass, or nutritional status, or are non- or non-. According to the National Kidney Foundation, irrespective of diagnosis, the stage of the disease is based on the level of kidney function: Stage Description GFR(mL/min/1.73 m(2)) 1 Kidney damage with normal or decreased GFR 90 2 Kidney damage with mild decrease in GFR 60-89 3 Moderate decrease in GFR 30-59 4 Severe decrease in GFR 15-29 5 Kidney failure <15 (or dialysis) 7 [place] Severe Sepsis and Septic Shock Management Bundle Measure requires all lactic acids initially measuring >2.0 mmol/L be repeated. 8 SEE RESULT BELOW Name: ALANALISA : [address]: Janet Lara DO Acct: [id number] Unit: [id number] AGE: 71 Location: ICU [id number] Re05/12/17 SEX: M Status: ADM IN SPEC: [id number] ORTIZ: 05/12/17-[address] [facility] [address]: Nithin Slater MD REQ: [id number] RECD: 05/12/17 STATUS: RES OTHR DR: Jelly Garcia MD _ SOURCE: BLOOD,VENO SPDESC: ORDERED: Blood Cult COMMENTS: Patient is On Antibiotics? NO Procedure Result Reported Site Aerobic Culture Bottle Preliminary 05/13/17- 1808 ML No Growth Day 1 Anaerobic Culture Bottle Preliminary 05/13/17- 1808 ML No Growth Day 1 * ML - MAIN LAB ([facility]) . END OF REPORT * ML=Testing performed at Main Lab DEPARTMENT OF PATHOLOGY, [address] [place] [address] Axel Morales M.D. Director [facility] # [id number] 9 >100 to <200 pg/mL: likely compensated congestive heart failure (CHF) 200 to 400 pg/mL: likely moderate CHF >400 pg/mL: likely moderate to severe CHF 10 SEE RESULT BELOW Name: LISA VARGAS : [address]: Lima Correa MD Acct: [id number] Unit: [id number] AGE: 71 Location: [place] [address] Re04/07/17 SEX: M Status: ADM IN SPEC: [id number] ORTIZ: 04/07/[address] [facility] [address]: Austin Lockhart DO REQ: [id number] RECD: 04/07/17 STATUS: JIMMY OSMAN DR: [facility] Jelly Garcia MD _ SOURCE: BLOOD,VENO SPDESC: ORDERED: Blood Cult Procedure Result Reported Site Aerobic Culture Bottle Final 04/12/17741 ML No Growth Day 5 Anaerobic Culture Bottle Final 04/12/17741 ML No Growth Day 5 * ML - MAIN LAB ([facility]) . END OF REPORT * ML=Testing performed at Main Lab DEPARTMENT OF PATHOLOGY, [address] [place] [address] Axel Morales M.D. Director [facility] # [id number] 11 Result TnIDx:0.04 Called to [id number] at: 07:45:14 by:[id number] Read back by: [id number] 12 Because ethnic data is not always readily available, this report includes an eGFR for both -Americans and non- Americans. The National Kidney Disease Education Program (NKDEP) does not endorse the use of the MDRD equation for patients that are not between the ages of 18 and 70, are , have extremes of body size, muscle mass, or nutritional status, or are non- or non-. According to the National Kidney Foundation, irrespective of diagnosis, the stage of the disease is based on the level of kidney function: Stage Description GFR(mL/min/1.73 m(2)) 1 Kidney damage with normal or decreased GFR 90 2 Kidney damage with mild decrease in GFR 60-89 3 Moderate decrease in GFR 30-59 4 Severe decrease in GFR 15-29 5 Kidney failure <15 (or dialysis) 13 Critical Result K:6.1 Called to [id number] at: 07:45:40 by:[id number] Read back by:[id number] 14 [facility] Severe Sepsis and Septic Shock Management Bundle Measure requires all lactic acids initially measuring >2.0 mmol/L be repeated. 15 Reference ranges based on room air. 16 >100 to <200 pg/mL: likely compensated congestive heart failure (CHF) 200 to 400 pg/mL: likely moderate CHF >400 pg/mL: likely moderate to severe CHF 17 Please note: The following may produce a false positive D Dimer test: - Rheumatoid factor greater than 60 IU/ml - Plasma hemoglobin greater than 0.05 gm/dl - Bilirubin greater than 50 mg/dl - Lipids greater than 1000 mg/dl - FDP greater than 20 ug/ml 18 [facility] Severe Sepsis and Septic Shock Management Bundle Measure requires all lactic acids initially measuring >2.0 mmol/L be repeated. 19 Because ethnic data is not always readily available, this report includes an eGFR for both -Americans and non- Americans. The National Kidney Disease Education Program (NKDEP) does not endorse the use of the MDRD equation for patients that are not between the ages of 18 and 70, are , have extremes of body size, muscle mass, or nutritional status, or are non- or non-. According to the National Kidney Foundation, irrespective of diagnosis, the stage of the disease is based on the level of kidney function: Stage Description GFR(mL/min/1.73 m(2)) 1 Kidney damage with normal or decreased GFR 90 2 Kidney damage with mild decrease in GFR 60-89 3 Moderate decrease in GFR 30-59 4 Severe decrease in GFR 15-29 5 Kidney failure <15 (or dialysis) 20 Acute inflammation: >10.00 21 SEE RESULT BELOW Name: LISA VARGAS : [address]: Alberto Asencio MD Acct: [id number] Unit: [id number] AGE: 71 Location: [place] [id number] Re03/31/17 Dis: 04/02/17 SEX: M Status: DIS IN SPEC: [id number] ORTIZ: 03/31/[address] [facility] [address]: Eran Ibarra MD REQ: [id number] RECD: 03/31/17 STATUS: JIMMY OSMAN DR: Jelly Garcia MD _ SOURCE: BLOOD,VENO SPDESC: ORDERED: Blood Cult COMMENTS: Patient is On Antibiotics? NO Procedure Result Reported Site Aerobic Culture Bottle Final 04/05/17- 1619 ML No Growth Day 5 Anaerobic Culture Bottle Final 04/05/17- 1619 ML No Growth Day 5 * ML - MAIN LAB ([facility]) . END OF REPORT * ML=Testing performed at Main Lab DEPARTMENT OF PATHOLOGY, [address] [place] [address] Axel Morales M.D. Director [facility] # [id number] 22 Specimen hemolyzed. Result may not be valid. [facility] Severe Sepsis and Septic Shock Management Bundle Measure requires all lactic acids initially measuring >2.0 mmol/L be repeated. 23 Because ethnic data is not always readily available, this report includes an eGFR for both -Americans and non- Americans. The National Kidney Disease Education Program (NKDEP) does not endorse the use of the MDRD equation for patients that are not between the ages of 18 and 70, are , have extremes of body size, muscle mass, or nutritional status, or are non- or non-. According to the National Kidney Foundation, irrespective of diagnosis, the stage of the disease is based on the level of kidney function: Stage Description GFR(mL/min/1.73 m(2)) 1 Kidney damage with normal or decreased GFR 90 2 Kidney damage with mild decrease in GFR 60-89 3 Moderate decrease in GFR 30-59 4 Severe decrease in GFR 15-29 5 Kidney failure <15 (or dialysis) 24 [id number] 25 SEE RESULT BELOW Name: LISA VARGAS : [address]: Vignesh Wahl MD Acct: [id number] Unit: [id number] AGE: 71 Location: ENDO Re02/23/17 SEX: M Status: DEP REF SPEC: [id number] ORTIZ: 02/23/17-[address] [facility] [address]: Vignesh Wahl MD REQ: [id number] RECD: 02/23/17-1441 STATUS: VIKY OSMAN DR: Natalia Garcia MD _ ORDERED: LEVEL 4/2, IMMUNO-FIRST FINAL DIAGNOSIS 1. Small bowel, duodenum, biopsy: -- Small bowel mucosa with normal villous architecture and no specific pathologic abnormality. 2. Stomach, antrum, biopsy: -- Mild to moderate chronic active gastritis. See comment. Comment: An immunohistochemical stain for Helicobacter pylori-like organisms was performed with appropriate controls on part 2 is negative. CLINICAL HISTORY No history given POST-OPERATIVE DIAGNOSIS Esophagus - normal; stomach - ulcer, 98% healed gastritis; duodenum - duodenitis, no visible ulcer; low risk with colorectal cancer GROSS DESCRIPTION 1. The specimen is received in formalin labeled, Biopsy Duodenum, and consists of a 0.4 x 0.2 x 0.2 cm vallecillo-pink irregular soft tissue fragment which is submitted entirely in one cassette. 2. The specimen is received in formalin labeled, Biopsy Gastric Antrum, and consists of a 0.3 x 0.2 x 0.2 cm vallecillo-pink irregular soft tissue fragment which is submitted entirely in one cassette. CONTINUED ON NEXT PAGE * ML=Testing performed at Main Lab DEPARTMENT OF PATHOLOGY, [address] [place] [address] Axel Morales M.D. Director [facility] # [id number] RUN DATE: 02/25/17 [facility] LAB LIVE PAGE 2 Patient: LISA VARGAS Melly [id number] (Continued) GROSS DESCRIPTION (Continued) Signed (signature on file) Axel Morales MD [id number] END OF REPORT * ML=Testing performed at Main Lab DEPARTMENT OF PATHOLOGY, [address] [place] [address] Axel Morales M.D. Director [facility] # [id number] 26 Because ethnic data is not always readily available, this report includes an eGFR for both -Americans and non- Americans. The National Kidney Disease Education Program (NKDEP) does not endorse the use of the MDRD equation for patients that are not between the ages of 18 and 70, are , have extremes of body size, muscle mass, or nutritional status, or are non- or non-. According to the National Kidney Foundation, irrespective of diagnosis, the stage of the disease is based on the level of kidney function: Stage Description GFR(mL/min/1.73 m(2)) 1 Kidney damage with normal or decreased GFR 90 2 Kidney damage with mild decrease in GFR 60-89 3 Moderate decrease in GFR 30-59 4 Severe decrease in GFR 15-29 5 Kidney failure <15 (or dialysis) 27 [id number] 28 Please note: The following may produce a false positive D Dimer test: - Rheumatoid factor greater than 60 IU/ml - Plasma hemoglobin greater than 0.05 gm/dl - Bilirubin greater than 50 mg/dl - Lipids greater than 1000 mg/dl - FDP greater than 20 ug/ml 29 >100 to <200 pg/mL: likely compensated congestive heart failure (CHF) 200 to 400 pg/mL: likely moderate CHF >400 pg/mL: likely moderate to severe CHF 30 Because ethnic data is not always readily available, this report includes an eGFR for both -Americans and non- Americans. The National Kidney Disease Education Program (NKDEP) does not endorse the use of the MDRD equation for patients that are not between the ages of 18 and 70, are , have extremes of body size, muscle mass, or nutritional status, or are non- or non-. According to the National Kidney Foundation, irrespective of diagnosis, the stage of the disease is based on the level of kidney function: Stage Description GFR(mL/min/1.73 m(2)) 1 Kidney damage with normal or decreased GFR 90 2 Kidney damage with mild decrease in GFR 60-89 3 Moderate decrease in GFR 30-59 4 Severe decrease in GFR 15-29 5 Kidney failure <15 (or dialysis) 31 Result TnIDx:0.06 Called to [id number] at: 22:13:58 by:[id number] Read back by: [id number] 99th percentile=0.04 ng/mL Troponin results at [facility] and [facility] are not interchangeable. 32 Critical Result LACT:3.6 Called to [id number] at: 22:11:24 by:[id number] Read back by:[id number] [facility] Severe Sepsis and Septic Shock Management Bundle Measure requires all lactic acids initially measuring >2.0 mmol/L be repeated. 33 SOB 34 SEE RESULTS BELOW [id number] AP PC TRANSFUSED 12/10/16 0423 [id number] AP PC TRANSFUSED 12/10/16 1533 35 [facility] Severe Sepsis and Septic Shock Management Bundle Measure requires all lactic acids initially measuring >2.0 mmol/L be repeated. 36 Because ethnic data is not always readily available, this report includes an eGFR for both -Americans and non- Americans. The National Kidney Disease Education Program (NKDEP) does not endorse the use of the MDRD equation for patients that are not between the ages of 18 and 70, are , have extremes of body size, muscle mass, or nutritional status, or are non- or non-. According to the National Kidney Foundation, irrespective of diagnosis, the stage of the disease is based on the level of kidney function: Stage Description GFR(mL/min/1.73 m(2)) 1 Kidney damage with normal or decreased GFR 90 2 Kidney damage with mild decrease in GFR 60-89 3 Moderate decrease in GFR 30-59 4 Severe decrease in GFR 15-29 5 Kidney failure <15 (or dialysis) 37 Result TnIDx:0.04 Called to [id number] at: 09:15:28 by:[id number] Read back by: [id number] 99th percentile=0.04 ng/mL Troponin results at [facility] and [facility] are not interchangeable. 38 SEE RESULT BELOW Name: LISA VARGAS : [address]: Alberto Asencio MD Acct: [id number] Unit: [id number] AGE: 71 Location: [facility] 439- Re12/05/16 Dis: 12/07/16 SEX: M Status: DIS IN SPEC: [id number] ORTIZ: 12/04/[address]: Nithin Slater MD REQ: [id number] RECD: 12/04/16 STATUS: JIMMY OSMAN DR: [facility] Jelly Garcia MD _ SOURCE: BLOOD,VENO SPDESC: ORDERED: Blood Cult Procedure Result Reported Site Aerobic Culture Bottle Final 12/09/16- 0844 ML No Growth Day 5 Anaerobic Culture Bottle Final 12/09/16- 0844 ML No Growth Day 5 * ML - MAIN LAB ([facility]) . END OF REPORT * ML=Testing performed at Main Lab DEPARTMENT OF PATHOLOGY, [address] [place] [address] Axel Morales M.D. Director [facility] [facility] # [id number] 39 >100 to <200 pg/mL: likely compensated congestive heart failure (CHF) 200 to 400 pg/mL: likely moderate CHF >400 pg/mL: likely moderate to severe CHF 40 SEE RESULT BELOW Name: LISA VARGAS : [address]: Marcelle Pearce MD Acct: [id number] Unit: [id number] AGE: 71 Location: ED Re11/28/16 SEX: M Status: REG ER SPEC: [id number] ORTIZ: 11/28/16-[address] [facility] [address]: Marcelle Pearce MD REQ: [id number] RECD: 11/28/16 STATUS: JIMMY OSMAN DR: Jelly Garcia MD _ SOURCE: [facility]: ORDERED: Flu A B Request Procedure Result Reported Site Rapid Influenza A B Request Final 11/28/16- 1329 ML Specimen received for Influenza A/B Molecular testing * ML - MAIN LAB ([facility]) . END OF REPORT * ML=Testing performed at Main Lab DEPARTMENT OF PATHOLOGY, [address] [place] [address] Axel Morales M.D. Director [facility] # [id number] [facility] Severe Sepsis and Septic Shock Management Bundle Measure requires all lactic acids initially measuring >2.0 mmol/L be repeated. 42 Because ethnic data is not always readily available, this report includes an eGFR for both -Americans and non- Americans. The National Kidney Disease Education Program (NKDEP) does not endorse the use of the MDRD equation for patients that are not between the ages of 18 and 70, are , have extremes of body size, muscle mass, or nutritional status, or are non- or non-. According to the National Kidney Foundation, irrespective of diagnosis, the stage of the disease is based on the level of kidney function: Stage Description GFR(mL/min/1.73 m(2)) 1 Kidney damage with normal or decreased GFR 90 2 Kidney damage with mild decrease in GFR 60-89 3 Moderate decrease in GFR 30-59 4 Severe decrease in GFR 15-29 5 Kidney failure <15 (or dialysis) 43 99th percentile=0.04 ng/mL Troponin results at [facility] and [facility] are not interchangeable. 44 Please note: The following may produce a false positive D Dimer test: - Rheumatoid factor greater than 60 IU/ml - Plasma hemoglobin greater than 0.05 gm/dl - Bilirubin greater than 50 mg/dl - Lipids greater than 1000 mg/dl - FDP greater than 20 ug/ml 45 Acute inflammation: >10.00 46 SEE RESULT BELOW Name: LISA VARGAS Melly : [address]: Marco Kevin MD Acct: [id number] Unit: [id number] AGE: 71 Location: [place] [address] Re11/28/16 Dis: 11/29/16 SEX: M Status: DIS IN SPEC: [id number] ORTIZ: 11/28/16-[address]: Marcelle Pearce MD REQ: [id number] RECD: 11/28/16 STATUS: COMP DAWSON DR: [facility] Jelly Garcia MD _ SOURCE: BLOOD,VENO SPDES: ORDERED: Blood Cult Procedure Result Reported Site Aerobic Culture Bottle Final 12/03/16- 1353 ML No Growth Day 5 Anaerobic Culture Bottle Final 12/03/16- 1353 ML No Growth Day 5 * ML - MAIN LAB ([facility]) . END OF REPORT * ML=Testing performed at Main Lab DEPARTMENT OF PATHOLOGY, [address] [place] [address] Axel Morales M.D. Director [facility] # [id number] [facility]: [id number] JIM Guthrie Because ethnic data is not always readily available, this report includes an eGFR for both -Americans and non- Americans. The National Kidney Disease Education Program (NKDEP) does not endorse the use of the MDRD equation for patients that are not between the ages of 18 and 70, are , have extremes of body size, muscle mass, or nutritional status, or are non- or non-. According to the National Kidney Foundation, irrespective of diagnosis, the stage of the disease is based on the level of kidney function: Stage Description GFR(mL/min/1.73 m(2)) 1 Kidney damage with normal or decreased GFR 90 2 Kidney damage with mild decrease in GFR 60-89 3 Moderate decrease in GFR 30-59 4 Severe decrease in GFR 15-29 5 Kidney failure <15 (or dialysis) 49 Acute inflammation: >10.00 50 Result TnIDx:0.04 Called to [id number] at: 15:32:22 by:[id number] Read back by: [id number] 99th percentile=0.04 ng/mL Troponin results at [facility] and [facility] are not interchangeable. 51 [facility] Severe Sepsis and Septic Shock Management Bundle Measure requires all lactic acids initially measuring >2.0 mmol/L be repeated. 52 Desirable <150 Borderline high 150-199 High 200-499 Very High >500 53 Desirable <200 Borderline high 200-239 High >239 54 Low <40 Desirable: 40-60 High: >60 55 Desirable: <100 mg/dL Near Optimal: 100-129 mg/dL Borderline High: 130-159 mg/dL High: 160-189 mg/dL Very High: >189 mg/dL 56 Because ethnic data is not always readily available, this report includes an eGFR for both -Americans and non- Americans. The National Kidney Disease Education Program (NKDEP) does not endorse the use of the MDRD equation for patients that are not between the ages of 18 and 70, are , have extremes of body size, muscle mass, or nutritional status, or are non- or non-. According to the National Kidney Foundation, irrespective of diagnosis, the stage of the disease is based on the level of kidney function: Stage Description GFR(mL/min/1.73 m(2)) 1 Kidney damage with normal or decreased GFR 90 2 Kidney damage with mild decrease in GFR 60-89 3 Moderate decrease in GFR 30-59 4 Severe decrease in GFR 15-29 5 Kidney failure <15 (or dialysis) 57 Because ethnic data is not always readily available, this report includes an eGFR for both -Americans and non- Americans. The National Kidney Disease Education Program (NKDEP) does not endorse the use of the MDRD equation for patients that are not between the ages of 18 and 70, are , have extremes of body size, muscle mass, or nutritional status, or are non- or non-. According to the National Kidney Foundation, irrespective of diagnosis, the stage of the disease is based on the level of kidney function: Stage Description GFR(mL/min/1.73 m(2)) 1 Kidney damage with normal or decreased GFR 90 2 Kidney damage with mild decrease in GFR 60-89 3 Moderate decrease in GFR 30-59 4 Severe decrease in GFR 15-29 5 Kidney failure <15 (or dialysis) 58 Because ethnic data is not always readily available, this report includes an eGFR for both -Americans and non- Americans. The National Kidney Disease Education Program (NKDEP) does not endorse the use of the MDRD equation for patients that are not between the ages of 18 and 70, are , have extremes of body size, muscle mass, or nutritional status, or are non- or non-. According to the National Kidney Foundation, irrespective of diagnosis, the stage of the disease is based on the level of kidney function: Stage Description GFR(mL/min/1.73 m(2)) 1 Kidney damage with normal or decreased GFR 90 2 Kidney damage with mild decrease in GFR 60-89 3 Moderate decrease in GFR 30-59 4 Severe decrease in GFR 15-29 5 Kidney failure <15 (or dialysis) 59 Because ethnic data is not always readily available, this report includes an eGFR for both -Americans and non- Americans. The National Kidney Disease Education Program (NKDEP) does not endorse the use of the MDRD equation for patients that are not between the ages of 18 and 70, are , have extremes of body size, muscle mass, or nutritional status, or are non- or non-. According to the National Kidney Foundation, irrespective of diagnosis, the stage of the disease is based on the level of kidney function: Stage Description GFR(mL/min/1.73 m(2)) 1 Kidney damage with normal or decreased GFR 90 2 Kidney damage with mild decrease in GFR 60-89 3 Moderate decrease in GFR 30-59 4 Severe decrease in GFR 15-29 5 Kidney failure <15 (or dialysis) 60 Because ethnic data is not always readily available, this report includes an eGFR for both -Americans and non- Americans. The National Kidney Disease Education Program (NKDEP) does not endorse the use of the MDRD equation for patients that are not between the ages of 18 and 70, are , have extremes of body size, muscle mass, or nutritional status, or are non- or non-. According to the National Kidney Foundation, irrespective of diagnosis, the stage of the disease is based on the level of kidney function: Stage Description GFR(mL/min/1.73 m(2)) 1 Kidney damage with normal or decreased GFR 90 2 Kidney damage with mild decrease in GFR 60-89 3 Moderate decrease in GFR 30-59 4 Severe decrease in GFR 15-29 5 Kidney failure <15 (or dialysis) 61 Because ethnic data is not always readily available, this report includes an eGFR for both -Americans and non- Americans. The National Kidney Disease Education Program (NKDEP) does not endorse the use of the MDRD equation for patients that are not between the ages of 18 and 70, are , have extremes of body size, muscle mass, or nutritional status, or are non- or non-. According to the National Kidney Foundation, irrespective of diagnosis, the stage of the disease is based on the level of kidney function: Stage Description GFR(mL/min/1.73 m(2)) 1 Kidney damage with normal or decreased GFR 90 2 Kidney damage with mild decrease in GFR 60-89 3 Moderate decrease in GFR 30-59 4 Severe decrease in GFR 15-29 5 Kidney failure <15 (or dialysis) 62 Verbal to answering service at 1930 on 06/19/15 by [id number]. Doctor to return call. 63 Verbal to answering service at 1930 on 06/19/15 by [id number]. Doctor to return call. 64 Because ethnic data is not always readily available, this report includes an eGFR for both -Americans and non- Americans. The National Kidney Disease Education Program (NKDEP) does not endorse the use of the MDRD equation for patients that are not between the ages of 18 and 70, are , have extremes of body size, muscle mass, or nutritional status, or are non- or non-. According to the National Kidney Foundation, irrespective of diagnosis, the stage of the disease is based on the level of kidney function: Stage Description GFR(mL/min/1.73 m(2)) 1 Kidney damage with normal or decreased GFR 90 2 Kidney damage with mild decrease in GFR 60-89 3 Moderate decrease in GFR 30-59 4 Severe decrease in GFR 15-29 5 Kidney failure <15 (or dialysis) 65 Because ethnic data is not always readily available, this report includes an eGFR for both -Americans and non- Americans. The National Kidney Disease Education Program (NKDEP) does not endorse the use of the MDRD equation for patients that are not between the ages of 18 and 70, are , have extremes of body size, muscle mass, or nutritional status, or are non- or non-. According to the National Kidney Foundation, irrespective of diagnosis, the stage of the disease is based on the level of kidney function: Stage Description GFR(mL/min/1.73 m(2)) 1 Kidney damage with normal or decreased GFR 90 2 Kidney damage with mild decrease in GFR 60-89 3 Moderate decrease in GFR 30-59 4 Severe decrease in GFR 15-29 5 Kidney failure <15 (or dialysis) 66 Critical Result NA:114 Called to [id number] at: 21:10:56 by:[id number] Read back by:[id number] 67 RUN DATE: 09/14/14 [facility] LAB LIVE PAGE 1 RUN TIME: [address] [place] [address] Specimen Inquiry Name: VARGASLISA : [address]: Phoebe Posada MD Acct: [id number] Unit: [id number] AGE: 68 Location: [facility] Re09/14/14 SEX: M Status: DEP ER SPEC: [id number] ORTIZ: 09/14/[address] [facility] [address]: Phoebe Posada MD REQ: [id number] RECD: 09/14/14 STATUS: JIMMY OSMAN DR: Jelly Garcia MD _ SOURCE: [facility]: ORDERED: Rapid Flu A B Procedure Result Verified Site Rapid Influenza A B Antigen Final 09/14/14- 1251 ML Organism 1 Negative Influenza A B Antigen testing by enzyme immunoassay. Cell culture testing can be performed to confirm negative test results and to assist in detecting other viruses that can produce similar clinical symptoms. Please notify Microbiology Lab if further testing is desired. END OF REPORT * ML=Testing performed at Main Lab DEPARTMENT OF PATHOLOGY, [address] [place] [address] Axel Morales M.D. Director [facility] # [id number] 68 Because ethnic data is not always readily available, this report includes an eGFR for both -Americans and non- Americans. The National Kidney Disease Education Program (NKDEP) does not endorse the use of the MDRD equation for patients that are not between the ages of 18 and 70, are , have extremes of body size, muscle mass, or nutritional status, or are non- or non-. According to the National Kidney Foundation, irrespective of diagnosis, the stage of the disease is based on the level of kidney function: Stage Description GFR(mL/min/1.73 m(2)) 1 Kidney damage with normal or decreased GFR 90 2 Kidney damage with mild decrease in GFR 60-89 3 Moderate decrease in GFR 30-59 4 Severe decrease in GFR 15-29 5 Kidney failure <15 (or dialysis) 69 Desirable <150 Borderline high 150-199 High 200-499 Very High >500 70 Desirable <200 Borderline high 200-239 High >239 71 Low <40 Desirable: 40-60 High: >60 72 Desirable <100 Near Optimal 100-129 Borderline high 130-159 High 160-189 Very High >189 73 PT IS FASTING 74 HDL Interpretation: Undesirable: High Risk: Less than 40 mg/dL Desirable: Low Risk: Greater than 60 mg/dL 75 LDL Interpretation: Low Risk Optimal Level: LDL Less than 100 mg/dL Near or Above Optimal: LDL 100-129 mg/dL Borderline High Risk: LDL 130-159 mg/dL High Risk: LDL 160-189 mg/dL Very High Risk: LDL Greater than 189 mg/dL 76 Because ethnic data is not always readily available, this report includes an eGFR for both -Americans and non- Americans. The National Kidney Disease Education Program (NKDEP) does not endorse the use of the MDRD equation for patients that are not between the ages of 18 and 70, are , have extremes of body size, muscle mass, or nutritional status, or are non- or non-. According to the National Kidney Foundation, irrespective of diagnosis, the stage of the disease is based on the level of kidney function: Stage Description GFR(mL/min/1.73 m(2)) 1 Kidney damage with normal or decreased GFR 90 2 Kidney damage with mild decrease in GFR 60-89 3 Moderate decrease in GFR 30-59 4 Severe decrease in GFR 15-29 5 Kidney failure <15 (or dialysis) 77 PT IS FASTING 78 RUN DATE: 01/13/13 [facility] LAB LIVE PAGE 1 RUN TIME: [address] [place], [place] [address] Specimen Inquiry Name: LISA VARAGS : [address]: Keven Julio MD Acct: [id number] Unit: [id number] AGE: 67 Location: [facility] Re01/12/13 SEX: M Status: REG REF SPEC: [id number] ORTIZ: 01/12/13- [facility] DR: Keven Julio MD REQ: [id number] RECD: 01/12/131155 STATUS: VIKY OSMAN DR: Jelly Garcia MD _ ORDERED: LEVEL IV FINAL DIAGNOSIS Colon, 45 cm., biopsy: A. Tubular adenoma. B. No high grade dysplasia or malignancy. CLINICAL HISTORY Routine screening. POST-OPERATIVE DIAGNOSIS Diverticulosis, polyps GROSS DESCRIPTION The specimen is received in formalin labeled Lisa Celis, Colon Polyp at 45 cm. and consists of a vallecillo, soft tissue fragment measuring 0.4 x 0.2 x 0.2 cm. Submitted entirely, one cassette. Signed (signature on file) Axel Morales MD 1234 END OF REPORT * ML=Testing performed at Main Lab DEPARTMENT OF PATHOLOGY, [address] [place] [address] Axel Morales M.D. Director [facility] Permit #[id number] 79 Serum levels of PSA measured using the Timothy [place] DXI Hybritech immunoassay should not be interpreted as absolute evidence of the presence or absence of disease. The PSA value should be used in conjunction with other pertinent clinical diagnostic procedures. A PSA value in the range of 0.1 to 0.6 ng/ml is indeterminate if being used as an indicator of recurrent or residual disease. The values obtained with different assay methods or kits cannot be used interchangeably. 80 A metabolite of Naproxen, O-desmethylnaproxen, has been shown to interfere with the Jenkacyik-Leighton method for measuring total bilirubin. Samples from patients who have taken Naproxen have shown spurious elevation in total bilirubin levels. 81 RUN DATE: 05/12/12 [facility] NMI LIVE PAGE 1 RUN TIME: 1146 Specimen Inquiry RUN USER: INTERFACE Name: LISA VARGAS Acckat#: [id number] Status: REG REF Re05/03/12 Age/Sex: 66/M Unit#: [id number] Location: [facility] : [birth year] SPEC #: [id number] ORTIZ: 05/03/12 STATUS: RES REQ #: [id number] RECD: 05/03/[address] [facility] [address]: Radha CARSON,Jelly Ace SOURCE: MYCOSES ENTR: 05/03/[address]: VERNON: NAIL ORDERED: FUNGUS CULT SKI QUERIES: MEDENT REQUISITION # [id number] Procedure Result Verified Site > FUNGUS CULTURE SKIN/NAILS Preliminary ML Organism 1 MYCOTIC ORGANISM - ID TO FOLLOW UNDER SEPARATE REPORT - [facility] State Permit #[id number] [address] [place] [address] DEPARTMENT OF PATHOLOGY, [address] [place] [address] [facility] Permit #[id number] Otis Bartlett M.D. Record Label Intern 82 RUN DATE: 05/18/12 [facility] NMI LIVE PAGE 1 RUN TIME: 941 Specimen Inquiry RUN USER: INTERFACE Name: LISA VARGAS#: [id number] Status: REG REF Re05/03/12 Age/Sex: 66/M Unit#: [id number] Location: [facility] : 47 SPEC #: [id number] ORTIZ: 05/03/12 STATUS: COMP REQ #: [id number] RECD: 05/03/[address] [facility] [address]: Radha CARSON,Jelly Ace SOURCE: MYCOSES ENTR: 05/12/12 [facility] DR: BRIAN: NAIL ORDERED: FUNGAL ID FORTINO COMMENTS: TOENAIL Procedure Result Verified Site > FUNGAL IDENTIFICATION - LA VERNE Final ML FUSARIUM SP. Test performed by: Corley [place] [address] [place] [address] ML - [facility] State Permit #[id number] [address] [place] [address] DEPARTMENT OF PATHOLOGY, [address] [place] [address] [facility] Permit #[id number] Otis Bartlett M.D. Record Label Intern 83 RUN DATE: 05/24/12 [facility] NMI LIVE PAGE 1 RUN TIME: 1245 Specimen Inquiry RUN USER: INTERFACE Name: LISA VARGAS#: [id number] Status: REG REF Re05/03/12 Age/Sex: 66/M Unit#: [id number] Location: [facility] : 47 SPEC #: [id number] ORTIZ: 05/03/12 STATUS: COMP REQ #: [id number] RECD: 05/03/[address] [facility] [address]: Radha CARSON,Jelly Ace SOURCE: MYCOSES ENTR: 05/03/12-[address]: BRIANC: NAIL ORDERED: FUNGUS CULT SKI QUERIES: MEDENT REQUISITION # [id number] ACT WKST: 05/24/12 #1 Procedure Result Verified Site > FUNGUS CULTURE SKIN/NAILS Final -1245 ML Organism 1 MYCOTIC ORGANISM - ID TO FOLLOW UNDER SEPARATE REPORT NO ADDITIONAL GROWTH AFTER 3 WEEKS [facility] Permit #[id number] [address] [place], [place] [id number] DEPARTMENT OF PATHOLOGY, [address] [place] [address] [facility] Permit #[id number] Otis Bartlett M.D. Record Label Intern 84 CHOLESTEROL INTERPRETATION: Desirable: Less than 200 MG/DL Borderline-High Risk: 200-239 MG/DL High-Risk: 240 MG/DL and over 85 HDL INTERPRETATION: Undesirable: High Risk: Less than 40 MG/DL Desirable: Low Risk: Greater than 60 MG/DL 86 LDL INTERPRETATION: Low Risk Optimal Level: LDL Less than 100 MG/DL Near or Above Optimal: LDL 100-129 MG/DL Borderline High Risk: LDL 130-159 MG/DL High Risk: LDL 160-189 MG/DL Very High Risk: LDL Greater than 189 MG/DL 87 RUN DATE: 12/13/11 [facility] NMI LIVE PAGE 1 RUN TIME: 1018 Specimen Inquiry RUN USER: INTERFACE Name: LISA VARGAS Melly Status: REG REF Re12/09/11 Age/Sex: 66/M Unit#: [id number] Location: [facility] : 47 SPEC #: [id number] ORTIZ: 12/09/117 STATUS: COMP REQ #: [id number] RECD: 12/09/11-[address]: [place]ino RIVET TOSSER,Kusum Fallon SOURCE: WOUND ENTR: 12/09/11-[address]: BRINA: SeeComment ORDERED: CULT SENS/GS COMMENTS: Specimen Description: CYST ON TAILBONE QUERIES: [email or web address] MEDENT REQUISITION # [id number] ACT WKST: B 12/13/11 #1 Procedure Result Verified Site > CULTURE SENSITIVITY Final -1018 ML Organism 1 CLOSTRIDIUM RAMOSUM Anaerobic sensitivities are not routinely performed. Positive isolates will be saved for one week. Please call the Microbiology Laboratory if susceptibility testing is needed. QUANTITY MODERATE Organism 2 NORMAL PARRIS QUANTITY FEW > GRAM STAIN SMEAR Final -0801 ML POLYS FEW SMEAR: MANY GRAM NEGATIVE BACILLI MANY GRAM POSITIVE COCCI MANY GRAM NEGATIVE DIPLOCOCCI - [facility] Permit #[id number] [facility] [place] [place] [address] DEPARTMENT OF PATHOLOGY, [facility] [place] [facility] [place], [place] [address] [facility] Permit #[id number] Axel Morales M.D. Director Bryan Vail M.D. Record Label Intern 88 * SERUM LEVELS OF PSA MEASURED USING THE TIMOTHY InVivioLink ACCESS HYBRITECH IMMUNOASSAY SHOULD NOT BE INTERPRETED ABSOLUTE EVIDENCE OF THE PRESENCE OR ABSENCE OF DISEASE. THE PSA VALUE SHOULD BE USED IN CONJUNCTION WITH OTHER PERTINENT CLINICAL DIAGNOSTIC PROCEDURES. A PSA value in the range of 0.1 to 0.6 ng/ml is indeterminate if being used as an indicator of recurrent or residual disease. . 89 Anion gap measurement may be of limited value in the presence of any alkalosis, especially in a combined acid base disorder. . 90 A metabolite of Naproxen, O-desmethylnaproxen, has been shown to interfere with the Jendrassik-Leighton method for measuring total bilirubin. Samples from patients who have taken Naproxen have shown spurious elevation in total bilirubin levels. 91 Because ethnic data is not always readily available, this report includes an eGFR for both -Americans and non- Americans. The National Kidney Disease Education Program (NKDEP) does not endorse the use of the MDRD equation for patients that are not between the ages of 18 and 70, are , have extremes of body size, muscle mass, or nutritional status, or are non- or non-. According to the National Kidney Foundation, irrespective of diagnosis, the stage of the disease is based on the level of kidney function: Stage Description GFR(mL/min/1.73 m(2)) 1 Kidney damage with normal or decreased GFR 90 2 Kidney damage with mild decrease in GFR 60-89 3 Moderate decrease in GFR 30-59 4 Severe decrease in GFR 15-29 5 Kidney failure <15 (or dialysis) 92 CHOLESTEROL INTERPRETATION: Desirable: Less than 200 MG/DL Borderline-High Risk: 200-239 MG/DL High-Risk: 240 MG/DL and over 93 HDL INTERPRETATION: Undesirable: High Risk: Less than 40 MG/DL Desirable: Low Risk: Greater than 60 MG/DL 94 LDL INTERPRETATION: Low Risk Optimal Level: LDL Less than 100 MG/DL Near or Above Optimal: LDL 100-129 MG/DL Borderline High Risk: LDL 130-159 MG/DL High Risk: LDL 160-189 MG/DL Very High Risk: LDL Greater than 189 MG/DL 95 CHOLESTEROL INTERPRETATION: Desirable: Less than 200 MG/DL Borderline-High Risk: 200-239 MG/DL High-Risk: 240 MG/DL and over 96 HDL INTERPRETATION: Undesirable: High Risk: Less than 40 MG/DL Desirable: Low Risk: Greater than 60 MG/DL 97 LDL INTERPRETATION: Low Risk Optimal Level: LDL Less than 100 MG/DL Near or Above Optimal: LDL 100-129 MG/DL Borderline High Risk: LDL 130-159 MG/DL High Risk: LDL 160-189 MG/DL Very High Risk: LDL Greater than 189 MG/DL 98 Anion gap measurement may be of limited value in the presence of any alkalosis, especially in a combined acid base disorder. . 99 A metabolite of Naproxen, O-desmethylnaproxen, has been shown to interfere with the Jendrassik-Leighton method for measuring total bilirubin. Samples from patients who have taken Naproxen have shown spurious elevation in total bilirubin levels. 100 Because ethnic data is not always readily available, this report includes an eGFR for both -Americans and non- Americans. The National Kidney Disease Education Program (NKDEP) does not endorse the use of the MDRD equation for patients that are not between the ages of 18 and 70, are , have extremes of body size, muscle mass, or nutritional status, or are non- or non-. According to the National Kidney Foundation, irrespective of diagnosis, the stage of the disease is based on the level of kidney function: Stage Description GFR(mL/min/1.73 m(2)) 1 Kidney damage with normal or decreased GFR 90 2 Kidney damage with mild decrease in GFR 60-89 3 Moderate decrease in GFR 30-59 4 Severe decrease in GFR 15-29 5 Kidney failure <15 (or dialysis) 101 PT ON DOXYCYCLINE 102 NO GROWTH AFTER 5 DAYS 103 NO GROWTH AFTER 5 DAYS 104 Anion gap measurement may be of limited value in the presence of any alkalosis, especially in a combined acid base disorder. . 105 Because ethnic data is not always readily available, this report includes an eGFR for both -Americans and non- Americans. The National Kidney Disease Education Program (NKDEP) does not endorse the use of the MDRD equation for patients that are not between the ages of 18 and 70, are , have extremes of body size, muscle mass, or nutritional status, or are non- or non-. According to the National Kidney Foundation, irrespective of diagnosis, the stage of the disease is based on the level of kidney function: Stage Description GFR(mL/min/1.73 m(2)) 1 Kidney damage with normal or decreased GFR 90 2 Kidney damage with mild decrease in GFR 60-89 3 Moderate decrease in GFR 30-59 4 Severe decrease in GFR 15-29 5 Kidney failure <15 (or dialysis) 106 NO GROWTH AFTER 5 DAYS 107 NO GROWTH AFTER 5 DAYS 108 Anion gap measurement may be of limited value in the presence of any alkalosis, especially in a combined acid base disorder. . 109 A metabolite of Naproxen, O-desmethylnaproxen, has been shown to interfere with the Jendrassik-Leighton method for measuring total bilirubin. Samples from patients who have taken Naproxen have shown spurious elevation in total bilirubin levels. 110 Because ethnic data is not always readily available, this report includes an eGFR for both -Americans and non- Americans. The National Kidney Disease Education Program (NKDEP) does not endorse the use of the MDRD equation for patients that are not between the ages of 18 and 70, are , have extremes of body size, muscle mass, or nutritional status, or are non- or non-. According to the National Kidney Foundation, irrespective of diagnosis, the stage of the disease is based on the level of kidney function: Stage Description GFR(mL/min/1.73 m(2)) 1 Kidney damage with normal or decreased GFR 90 2 Kidney damage with mild decrease in GFR 60-89 3 Moderate decrease in GFR 30-59 4 Severe decrease in GFR 15-29 5 Kidney failure <15 (or dialysis) 111 New Reference Range and Interpretation effective 06/10/2002 TnI (ng/ml) INTERPRETATION Less Than 0.06 ng/mL NOT SUPPORTIVE OF DIAGNOSIS OF IN 0.06 - 0.50 ng/ml INDETERMINATE: SUGGEST SERIAL STUDIES IF CLINICALLY INDICATED. Greater than 0.5 ng/mL CONSISTENT WITH DIAGNOSIS OF IN . Procedures Date CPT Code Description Status Comment 04/10/2014 74211 Nebulizer Treatment Completed 05/16/2013 54690 Spirometry Completed 03/14/2013 90114 Spirometry Completed 01/12/2013 Colonoscopy Completed Normal 12/01/2011 45751 EKG, at Least 12 Leads w/Interpretation and Completed Report 06/02/2011 97734 EKG, at Least 12 Leads w/Interpretation and Completed Report Encounters Type Date Location Provider CPT E/M Dx Office Visit 11/20/2017 9:15a Main Office Jelly Garcia M.D., R.D. 89084 J44.1 Office Visit 11/02/2017 9:15a Main Office Jelly Garcia M.D., R.D. 69724 J44.1 Office Visit 10/07/2017 10:15a Main Office Jelly Garcia M.D., R.D. 91264 J44.1 Office Visit 07/28/2017 4:30p Main Office Jelly Garcia M.D., R.DLanre 17059 J44.1 Office Visit 06/17/2017 3:15p Main Office Jelly Garcia M.D., Emily.D. 45075 J44.1 I48.91 K25.0 B02.9 Office Visit 05/27/2017 4:45p Main Office Jelly Garcia M.D., R.D. 06437 J44.1 J18.8 I48.91 D64.9 B02.9 Office Visit 03/16/2017 10:15a Main Office Jelly Garcia M.D., R.D. 32125 J44.1 J18.8 I48.91 Office Visit 03/09/2017 11:30a Main Office Jelly Garcia M.D., R.D. 40326 J44.1 J18.8 I48.91 Office Visit 12/31/2016 11:45a Main Office Jelly Garcia M.D., R.D. 13604 J18.8 D64.9 I48.91 K25.0 Office Visit 11/28/2016 10:45a Main Office [facility] 42529 J44.1 Office Visit 11/10/2016 10:15a Main Office Jelly Garcia M.D., R.Sri 89561 I48.91 J18.9 Office Visit 10/02/2016 9:15a [place] [address] J44.1 Office Visit 04/07/2016 9:45a Main Office [facility] 87650 J44.1 Office Visit 02/20/2016 9:30a Main Office Jelly Garcia M.D., R.Sri 44756 Z00.00 J44.9 I10 E78.2 Office Visit 01/15/2016 1:30p Main Office Keny Proctornasrin [facility]- 33539 J44.1 Office Visit 12/13/2015 3:30p [place] [address] J44.1 Office Visit 09/06/2015 10:00a Main Office Amparo Borrego M.D. 72863 J44.1 Office Visit 09/04/2015 8:45a Main Office [facility] 03718 J44.0 Office Visit 08/28/2015 11:30a [facility] [address] J44.0 Office Visit 08/20/2015 3:00p Main Office Jelly Garcia M.D., R.DLanre 01400 J44.0 J20.9 E87.1 Office Visit 07/30/2015 4:00p Main Office Jelly Garcia M.D., R.DLanre 24503 J44.0 E87.1 Office Visit 07/02/2015 10:45a [facility] 10843 E87.1 Office Visit 06/19/2015 2:00p [facility] 80592 J44.0 R42 Office Visit 07/28/2014 9:30a Main Office [facility] 41368 491.22 V03.82 Office Visit 06/15/2014 10:45a Main Office [facility] MARYJANE Capps-C 13910 491.22 Office Visit 04/10/2014 1:45p Main Office MANAN Martinez 57908 491.22 Office Visit 12/21/2013 9:30a Main Office Jelly Garcia M.D., R.Sri G0439 V70.0 496 401.9 272.2 782.7 Office Visit 07/18/2013 2:45p Main Office Jelly Garcia M.D., Emily.Sri 06552 496 Office Visit 05/16/2013 11:00a Main Office Jelly Garcia M.D., R.Sri 37138 496 V04.81 Office Visit 03/28/2013 9:30a Main Office MARYJANE Martinez-Melly 99106 491.22 Office Visit 03/14/2013 9:00a Main Office MARYJANE Bhatti-C 03023 491.22 Office Visit 02/22/2013 11:45a Main Office MARYJANE Bhatti-C 91416 491.22 Office Visit 12/20/2012 1:45p Main Office Jelly Garcia M.D., R.Sri 32678 V70.0 V70.0 496 496 401.9 401.9 272.2 272.2 238.2 Office Visit 12/08/2012 12:00p Main Office Jelly Garcia M.D., R.DLanre 12609 486 465.9 496 Office Visit 11/29/2012 10:00a Main Office MARYJANE Bhatti-C 32989 486 Office Visit 11/27/2012 11:00a Main Office MARYJANE Bhatti-C 50754 486 Office Visit 11/23/2012 9:15a Main Office MARYJANE Martinez-C 41851 465.9 Office Visit 10/06/2012 10:30a Main Office Jelly Garcia M.D., R.Sri 76527 465.9 496 Office Visit 05/03/2012 2:45p Main Office Jelly Garcia M.D., R.DLanre 54613 110.1 Office Visit 12/09/2011 12:00p Main Office [facility] 79646 685.0 Office Visit 12/01/2011 2:00p Main Office Jelly Garcia M.D., R.DLanre 04178 496 272.2 401.9 Office Visit 10/17/2011 9:00a Main Office JUAN J MartinezPRonald 69255 461.8 Office Visit 10/08/2011 11:00a Main Office Jelly Garcia M.D., R.DLanre 18930 496 465.9 995.3 Office Visit 06/02/2011 1:30p Main Office Jelly Garcia M.D., R.DLanre 66475 V70.0 496 401.9 272.2 V10.46 461.1 794.31 V04.81 Office Visit 01/08/2011 10:45a Main Office Jelly Garcia M.D., R.D. 50944 486 496 Office Visit 12/16/2010 9:30a Main Office Tashia Richey [facility] 51225 486 Office Visit 10/30/2010 12:15p Main Office Jelly Garcia M.D., R.D. 58475 496 Office Visit 10/07/2010 10:00a Main Office Jelly Garcia M.D., R.DLanre 42397 401.9 272.2 496 Plan of Care 12/04/2017 - Jelly Garcia M.D., R.D.J44.1 Chronic obstructive pulmonary disease w (acute) exacerbationRecommendations:Continue the Levaquin. Take 60 mg prednisone daily for 3 days, then 40 mg daily for 3 days, then decrease by 10 mg every 3 days. If you do not start to feel better in a day or 2 or if you have any newor worsening symptoms at any time, please call the office or go to the hospital.M79.602 Pain in left armNew Therapy:Physical Therapy-Evaluate And UvinxE21.1 WeaknessNew Therapy:Physical Therapy-Evaluate And Treat
--- OUTSIDE RECORDS SUMMARY | 2017-12-23 13:33 | XMS REPORT ---
:1945 External Reference #:[id number] Author Organization [facility] Address [address] [place] [address] Phone [phone] Care Team Providers Name Role Phone Jelly Garcia M.D., R.D. Primary Care Physician Unavailable Payers Type Date Identification Numbers Payment Provider Subscriber Commercial Effective: Policy Number: Kamla [facility] Lisa Pickard Vargas 2007 [id number] Expires: 2011 Group Name: [place] [address] PayID: [id number] INDERJIT Ortiz 11322 Medigap Part B Effective: Policy Number: Kamla [facility] Lisa Pickard Vargas 2011 [id number] Expires: 2011 Group Name: [employer] [address] PayID: [id number] INDERJIT Ortiz 79253 Commercial Effective: Policy Number: [employer] Lisa Pickard Vargas 2011 [id number] [employer] Expires: 2012 Group Number: [id number] [address] PayID: [id number] INDERJIT Ortiz 83414 Commercial Effective: Policy Number: [employer] Lisa Pickard Vargas 2012 [id number] [employer] Group Number: [id number] [address] PayID: [id number] INDERJIT Ortiz 44697 Problems Date Description Provider Status Onset: 12/16/2010 [...] Form Strength Qnty SIG Indications Ordering Provider Azithromycin 11/30 Active Tablets 250mg 30tab take 1 a s day Otis Garcia, R.D. Prednisone 07/28 Active Tablets 10mg QS 4 by mouth J44.1 every day Radha for 3 days, MRachel, then R.D. decrease by 1 pill every 3 days Levalbuterol HCL 06/09 Active Nebulizer 1.25mg/3M 270ml Use as L directed in Radha nebulizer Otis, qid unit R.D. dose for one month with 5 refills Levofloxacin 05/27 Active Tablets 750mg 7tabs 1 tab by mouth daily Radha for 7 days M.D., R.D. Potassium 12/31 Active Tablets ER 20Meq 180ta take one Jelly Chloride ER bs tablet by Radha mouth twice M.D., per day R.D. Omeprazole 12/[address] 20mg 60cap Take One s Capsule By Radha Mouth Twice M.D., A Day R.D. Combivent 02/06 Active Aerosol 20-100mcg 12uni inhale 1 Jelly Respimat /2013 ts puff into Radha, lungs 4 M.D., times a day R.D. as needed Montelukast 05/16 Active Tablets 10mg 90tab Take One J44.9 Jelly Sodium s Tablet By Radha, Mouth At M.D., Bedtime R.D. Symbicort 04/07 Active Aerosol 160-4.5mc 10.2u Inhale Two Kusum /2011 g/Act nits Puffs Into [facility], Lungs Twice [employer] A Day Atorvastatin 03/24 Active Tablets 20mg 90tab Take One Jelly Calcium s Tablet By Radha, Mouth At M.D., Bedtime R.D. Flonase 08/06 Active Suspension 50mcg/Act 32gm inhale two Jelly sprays in [facility], each M.D., nostril R.D. qd-bid Amlodipine 10/07 Active Tablets 10mg 90tab Take One Keny Besylate s Tablet By Hector Mouth Every III, Day [employer] Spiriva 10/07 Active Capsules 18mcg 90cap Inhale Jelly Handihaler s Contents Of Radha, One Capsule M.D., Via R.D. Handihaler Device Once Daily Aspir-[address] 81mg 1 by mouth Unknown /0000 every day Voriconazole Active Tablets 200mg Unknown /0000 Xarelto Active Tablets 20mg Take One Unknown /0000 Tablet By Mouth Every Day Citalopram Active Tablets 10mg 30tab Take One Jelly Hydrobromide / s Tablet By Radha, Mouth Every M.D., Day R.D. Furosemide Active Tablets 20mg 60tab Take Two Jelly / s Tablets By Radha, Mouth Every M.D., Day R.D. Nystatin-Triamci 03/11 Hx Cream 861543-2. 30uni Apply To Jelly 1Unit/GM- ts Affected Yoel Garcia % Area(S) Two M.D., 07/04 Times A Day R.D. /2017 For 2 Weeks Prednisone 03/09 Hx Tablets 10mg QS 4 by mouth J44.1 every day Radha, - for 3 days, M.D., 07/04 then R.D. decrease by 1 pill every 3 days Tramadol HCL 03/09 Hx Tablets 50mg 45tab take 1 J44.1 s tablet by Radha - mouth up to M.DLanre, 06/17 three times R.D. a day as needed for pain; maximum daily dose=3 Cyclobenzaprine 03/09 Hx Tablets 5mg 30tab 1 Tablet By Jaiden Nathaniel s Mouth Up To Nathanielks - Three Times , 06/17 A Day /2016 Discontinue 01/14 Hx Jelly Yoel Garcia M.D., 03/16 R.D. Xopenex 12/31 Hx Nebulizer 1.25mg/3M 72ml 2 puffs L every Yoel Garcia hours as MRachel, 03/16 needed R.D. Asmanex HFA 12/31 Hx Aerosol 200mcg/Ac 3 puffs qd t Yoel Garcia M.D., 07/28 R.D. Augmentin 10/02 Hx Tablets 875-125mg 28tab 1 take by Jaiden s mouth Yoel Garcia tablet Otis, 11/02 every 12 R.D. /2018 hours for 10 days for infection Nystatin-Triamci 08/11 Hx Cream 742405-5. 30uni Apply To Jelly 1Unit/GM- ts Affected Yoel Garcia % Area(S) Two M.DLanre, 11/10 Times A Day R.D. For 2 Weeks Prednisone 04/07 Hx Tablets 20mg 21tab take 3 tabs Jaiden Nathaniel s by mouth x [place] - 3 days, , 11/10 then 2 tabs by mouth x 3 days, then 1 tab by mouth x 3 days, then 1/2 tab by mouth x 3 days Prednisone 12/12 Hx Tablets 50mg 3tabs 1 tab by Jaiden Nathaniel mouth daily [place] - for 3 days , 01/14 Augmentin 04/07 Hx Tablets 875-125mg 20tab 1 take by J44.1 Nathaniel s mouth Pilar - MD tracy 01/14 every hours for 10 days for infection Nystatin-Triamci 12/04 Hx Cream 833188-1. 30uni Apply To Jelly 1Unit/GM- ts Affected [...] 2 J44.0 tablets [place], - today then [employer] 09/06 1 tablet /2014 daily for the next 4 days Prednisone 07/28 Hx Tablets 20mg QS take 3 J44.9 Kusum tablets [place], - every day x [employer] 09/06 4 days, 2 tablets every day x 3 days,then 1 tablet every day X 3days, then 1/2 tab X 3 days Prednisone 06/15 Hx Tablets 20mg 10tab take 2 tabs 491.22 s po qd X 5 [place], - days. [employer] 07/28 Prednisone 04/10 Hx Tablets 20mg 21tab take 3 491.22 Kusum s tablets x 3 [place], - days, then [employer] 06/15 2 tablets x 3 days,then 1 tablet x 3 days, then 1/2 tablet x 3 days. Levofloxacin 04/10 Hx Tablets 750mg 10tab 1 tablet by J44.0 s mouth every [place], - day x 10 [employer] J44.1 Nystatin-Triamcinolone 03/13/2014 Hx Cream 408685-6.1Unit/GM-% 30units Apply To Jelly - Affected Radha, 07/30/2015 Area(S) Justino Berg Two Times A Day For 2 Weeks Pulmicort Flexhaler 12/21/2013 Hx Aeroso 90mcg/Act 1units 3 puff Jelly - l qhs Per Radha, 12/31/2016 Pularvin Berg R.D. Please Administer The 12/21/2013 Hx Jelly Shingles Vaccine - Radha, 10/10/2015 Otis RRachel Terbinafine HCL 11/03/2013 Hx Tablet 250mg 126tabs Take One Jelly - s Tablet By Radha, 03/16/2017 Mouth Justino Berg Once Daily For One Week Of Each Month Levofloxacin 05/16/2013 Hx Tablet 750mg 10tabs 1 tablet J Jelly - s by mouth 4 Radha, 09/06/2015 every day 4 Justino Berg x 10 days . 9 Prednisone 05/16/2013 Hx Tablet 20mg QS Take 3 4 Jelly - s tablets 9 [facility], 12/21/2013 qd x 4 6 M.Sri R.DLanre days,then 2 tablets qd x 3 days, then 1 tablet qd for 3 days then 1/2 tablet daily x4 days, then stop Combivent 04/20/2013 Hx Aeroso 18-103mcg/Act 1units Inhale Jelly - l Two Puffs Radha, 02/06/2014 Into Emily Berg.Sri Lungs Four Times A Day Levofloxacin 03/28/2013 Hx Tablet 750mg 10tabs 1 tablet 4 Kusum - s po qd x 9 [place], 05/16/2013 10 days 1 [employer] . 2 2 Daliresp 03/14/2013 Hx Tablet 500mcg 30tabs 1 po 4 Shawnti R. - s daily for 9 , 05/16/2013 COPD 1 [employer] . 2 2 Azithromycin 03/14/2013 Hx Tablet 250mg 6tabs 2 po 4 Shawnti R. - s today , 03/28/2013 then 1 po 1 [employer] daily for . 4 days 2 2 Augmentin 12/08/2012 Hx Tablet 875-125mg 20tabs 1 po bid 4 Jelly - s for 9 Radha, 08/08/2013 infection 1 M.D., R.D. . 2 2 Augmentin 11/27/2012 Hx Tablet 875-125mg 20tabs 1 po bid Shawnti R. - s for Storm, 12/07/2012 infection [employer] Prednisone 11/23/2012 Hx Tablet 20mg QS Take 3 V Kusum - s tablets 7 [place], 05/16/2013 qd x 4 0 [employer] days,then . 2 tablets 0 qd x 3 days, then 1 tablet qd for 3 days then 1/2 tablet daily x4 days, then stop Azithromycin 11/23/2012 Hx Tablet 250mg 6tabs take 2 V Kusum - s tablets 7 [place], 11/27/2012 today 0 [employer] then 1 . tablet 0 daily for [...] Hx 1units and mask Jelly Garcia, 12/20/2012 M.D., R.D. Lamisil 05/03/2012 Hx Tablet 125mg 21tabs 1 po qd 1 Jelly - s for one 1 Radha, 05/03/2012 week 0 M.D., R.D. every . month 1 Lamisil 05/03/2012 Hx Tablet 250mg 21tabs 1 po q 1 Jelly - s day for 1 Radha, 12/20/2012 one week 0 M.D., R.D. of each . month 1 Azithromycin 04/07/2012 Hx Tablet 250mg 15tabs 1 po 3 Jelly - s times per Radha, 11/27/2012 week Otis, R.D. Amoxicillin/Clavulanate 12/09/2011 Hx Tablet 875-125mg 20tabs 1 tablet 6 Kusum Potassium - s twice 8 [place], 11/23/2012 daily x 5 [employer] 10 days . 0 Aspir-81 12/01/2011 Hx Tablet 81mg 90tabs 1 by Jelly Garcia, 02/20/2016 every day Otis, R.D. Amoxicillin 10/17/2011 Hx Tablet 875mg 20tabs 1 tablet 4 Kusum - s bid x 10 6 [place], 11/28/2011 days 1 [employer] . 8 Azithromycin 10/08/2011 Hx Tablet 250mg 6tabs 3 times Jelly alexandra per week Radha, 11/28/2011 Otis, R.D. Symbicort 10/08/2011 Hx Aeroso 3units Jelly Garcia, 04/07/2012 Otis, R.D. Avelox 10/08/2011 Hx Tablet 400mg 7tabs one po Jelly alexandra daily Radha, 12/08/2012 Otis, R.D. Veramyst 08/06/2011 Hx Suspen 27.5mcg/[place] 1units 1 whiff q Jelly Garcia, 12/09/2011 daily Otis, R.D. Cefuroxime Axetil 07/18/2011 Hx Tablet 500mg 20tabs 1 po bid Jelly Garcia, 10/23/2011 Otis, R.D. Nystatin/Triamcinolone 06/02/2011 Hx Cream 684437-6.1Unit/GM-% 30g apply to Jelly Yoel Garcia, 12/20/2012 area bid Otis, R.D. for 1-2 weeks. Augmentin 06/02/2011 Hx Tablet 875-125mg 20tabs 1 po bid Jelly Garcia, 10/08/2011 Otis, R.D. Clarithromycin ER 12/16/2010 Hx Tablet 500mg 20tabs 2 po V Shawnti R. - s ER daily for 7 Storm, 03/11/2011 24HR 10 days 0 [employer] for . pneumonia 0 Flovent HFA 10/07/2010 Hx Aeroso 220mcg/Act 1units 2 puff Jelly - l bid Radha, 10/08/2011 Otis, R.D. Combivent 10/07/2010 Hx Aeroso 18-103mcg/Act 1units 2 puffs Jelly - l qid prn Radha, 10/08/2011 Otis, R.DLanre Albuterol Sulfate 10/07/2010 Hx Nebuli (2.5mg/3ML) 0.083% 2boxes use bid Jelly - zer as needed Radha, 12/31/2016 for Otis RQuinton. shortness of breath Lipitor 10/07/2010 Hx Tablet 20mg 30tabs Take One Jelly - s Tablet By Radha, 03/24/2012 Mouth At Otis, RQuinton. Bedtime Combivent Hx Aeroso 18-103mcg/Act 1units 2 puffs Jelly - l qid Radha, 12/20/2012 Otis, R.D. Fluticasone Propionate Hx Suspen 50mcg/Act Unknown - abimael 11/23/2012 Nystatin/Triamcinolone Hx Cream 807744-3.1Unit/GM-% 30gm Apply bid Jelly - to Radha, 08/08/2013 affected Otis, R.D. area prn Terbinafine HCL Hx Tablet 250mg 42tabs 1 po qd Jelly - s for one Radha, 08/08/2013 week of Otis, R.D. each month Nystatin/Triamcinolone Hx Cream 547918-6.1Unit/GM-% 30gm Apply to Jelly - affected Radha, 12/21/2013 area bid Otis, R.D. for 2 weeks Levalbuterol HCL Hx Nebuli 1.25mg/3ML Unknown - zer 03/16/2017 Metoprolol Succinate ER Hx Tablet 25mg 45tabs 1/2 tab Jelly - s ER daily Radha, 03/16/2017 24HR Otis RRachel Valsartan Hx Tablet 80mg Unknown - s 07/28/2017 Xarelto Hx Tablet 15mg Take One Unknown - s Tablet By 04/23/2017 Mouth Twice A Day Oxycodone-Acetaminophen Hx Tablet 5-325mg 15tabs 1 tab po Kusum - s q 8 hours [place], 07/28/2017 prn rib [employer] pain Warfarin Sodium Hx Tablet 2.5mg 90tabs take one Keyn - s tablet by Hector 06/17/2017 mouth III, [employer] every day at 5pm Levofloxacin Hx Tablet [...] CPT Code Status Date Vaccine Lot # 61303 Given 05/22/2017 [place] [address] Given 06/21/2016 [place] [address] Given 06/19/2015 Influenza Virus Vaccine, Quadrivalent, 3 Yr > Quad, Preserv Free 54192 Given 07/28/2014 Prevnar-13 Pneumococcal Conjugate Vaccine [id number] 94316 Given 01/12/2014 Zoster Vaccine 88103 Given 05/16/2013 Influenza Vaccine High Dose PF [id number] 39378 Given 06/02/2011 Pneumovax 23 (PPSV23) 65+ years or high risk 2 to [id number] 65 year old 42722 Given 06/02/2011 Influenza Vaccine-Preservative Free 3 Yrs And [id number] Above 34619 Given 03/09/2006 Tetanus Vital Signs Date Vital Result Comment 11/02/2017 Weight 133.00 lb Weight in kg's [...] Color Yellow Urine Appearance Clear Urine Specific [place] 1.028 1.010-1.030 Urine pH 5.0 5-9 Urine [...] 0-1 Macrocytosis 1+ Hypochromasia 1+ Polychromasia 1+ Clifford Cells 1+ Laboratory test 12/09/2016 D Dimer [...] Color Straw Urine Appearance Clear Urine Specific [place] 1.006 Low 1.010-1.030 Urine pH 6.0 5-9 [...] U/L 10-223 73 Urine DIP 12/21/2013 Specific [place] 1.015 1.01-1.02 Urine pH 5 5-6 Leukocytes [...] finding Skin/Nails <SEE NOTE> Fungal Identification 05/03/2012 82 - Corley <SEE NOTE> Fungus Culture [...] 5 Kidney failure <15 (or dialysis) 7 [facility] Severe Sepsis and Septic Shock Management Bundle Measure requires all lactic acids initially measuring >2.0 mmol/L be repeated. 8 SEE RESULT BELOW Name: LISA VARGAS : [address]: Janet Lara DO Acct: [id number] Unit: [id number] AGE: 71 Location: ICU Re05/12/17 SEX: M Status: ADM IN SPEC: [id number] ORTIZ: 05/12/[address]: Nithin Slater MD REQ: [id number] RECD: 05/12/17 STATUS: RES OTHR DR: Jelly Garcia MD _ SOURCE: BLOOD,VENO SPDESC: ORDERED: Blood Cult COMMENTS: Patient is On Antibiotics? NO Procedure Result Reported Site Aerobic Culture Bottle Preliminary 05/13/17- 1807 ML No Growth Day 1 Anaerobic Culture Bottle Preliminary 05/13/17- 1807 ML No Growth Day 1 * ML - MAIN LAB ([facility]) . END OF REPORT * ML=Testing performed at Main Lab DEPARTMENT OF PATHOLOGY, [address] [place] [address] Axel Morales M.D. Director [facility] # [id number] 9 >100 to <200 pg/mL: likely compensated congestive heart failure (CHF) 200 to 400 pg/mL: likely moderate CHF >400 pg/mL: likely moderate to severe CHF 10 SEE RESULT BELOW Name: LISA VARGAS : [address]: Lima Correa MD Acct: [id number] Unit: [id number] AGE: 71 Location: [place] [address] Re04/07/17 SEX: M Status: ADM IN SPEC: [id number] ORTIZ: 04/07/[address] [facility] [address]: Austin Lockhart DO REQ: [id number] RECD: 04/07/17 STATUS: COMP [facility] DR: [facility] Jelly Garcia MD _ SOURCE: BLOOD,VENO SPDESC: ORDERED: Blood Cult Procedure Result Reported Site Aerobic Culture Bottle Final 04/12/17- 741 ML No Growth Day 5 Anaerobic Culture Bottle Final 04/12/17- 741 ML No Growth Day 5 * ML - MAIN LAB ([facility]) . END OF REPORT * ML=Testing performed at Main Lab DEPARTMENT OF PATHOLOGY, [address] [place] [address] Axel Morales M.D. Director [facility] # [id number] 11 Result TnIDx:0.04 Called to [id number] at: 07:45:14 by: Read back by: [id number] 12 Because ethnic data is not always [...] dialysis) 13 Critical Result K:6.1 Called to [id number] at: 07:45:40 by:[id number] Read back by:[id number] 14 [facility] Severe Sepsis and Septic Shock Management [...] - FDP greater than 20 ug/ml 18 [facility] Severe Sepsis and Septic Shock Management [...] [address]: Alberto Asencio MD Acct: [id number] Unit: [id number] AGE: 71 Location: [address] Re03/31/17 Dis: 04/02/17 SEX: M Status: DIS IN SPEC: [id number] ORTIZ: 03/31/[address]: Eran Ibarra MD REQ: [id number] RECD: 03/31/17 STATUS: JIMMY OSMAN DR: Jelly [...] performed at Main Lab DEPARTMENT OF PATHOLOGY, [address] [place] [address] Axel Morales M.D. Director [facility] # [id number] 22 Specimen hemolyzed. Result may not be valid. [facility] Severe Sepsis and Septic Shock Management [...] [address]: Vignesh Wahl MD Acct: [id number] Unit: [id number] AGE: 71 Location: [facility] Re02/23/17 SEX: M Status: DEP REF SPEC: [id number] ORTIZ: 02/23/17-[address]: Vignesh Wahl MD REQ: [id number] RECD: 02/23/178014 STATUS: VIKY OSMAN DR: Natalia Garcia MD [...] performed at Main Lab DEPARTMENT OF PATHOLOGY, [facility] [place], [place] [address] Axel Morales M.D. Director [facility] # [id number] RUN DATE: 02/25/17 [facility] LAB LIVE PAGE 2 Patient: VARGASLISA [id number] (Continued) GROSS DESCRIPTION (Continued) Signed (signature on file) Axel Morales MD 1107 END OF REPORT * ML=Testing performed at Main Lab DEPARTMENT OF PATHOLOGY, [facility] [place], [place] [address] Axel Morales M.D. Director [facility] # [id number] 26 Because ethnic data is not always [...] 5 Kidney failure <15 (or dialysis) 27 [id number] 28 Please note: The following may produce [...] (or dialysis) 31 Result TnIDx:0.06 Called to [id number] at: 22:13:58 by:[id number] Read back by: [id number] 99th percentile=0.04 ng/mL Troponin results at [facility] and [facility] are not interchangeable. 32 Critical Result LACT:3.6 Called to [id number] at: 22:11:24 by:[id number] Read back by:[id number] [facility] Severe Sepsis and Septic Shock Management Bundle Measure requires all lactic acids initially measuring >2.0 mmol/L be repeated. 33 SOB 34 SEE RESULTS BELOW [id number] AP PC TRANSFUSED 12/10/16 0423 [id number] AP PC TRANSFUSED 12/10/16 1533 35 [facility] Severe Sepsis and Septic Shock Management [...] (or dialysis) 37 Result TnIDx:0.04 Called to [id number] at: 09:15:28 by:[id number] Read back by: [id number] 99th percentile=0.04 ng/mL Troponin results at [facility] and [facility] are not interchangeable. 38 SEE RESULT BELOW Name: LISA VARGAS : [address]: Alberto Asencio MD Acct: [id number] Unit: [id number] AGE: 71 Location: [place] [address]- Re12/05/16 Dis: 12/07/16 SEX: M Status: DIS IN SPEC: [id number] ORTIZ: 12/04/[address] [facility] [address]: Nithin Slater MD REQ: [id number] RECD: 12/04/16 STATUS: JIMMY OSMAN DR: [facility] Jelly Garcia MD _ SOURCE: BLOOD,VENO SPDESC: ORDERED: Blood Cult Procedure Result Reported Site Aerobic Culture Bottle Final 12/09/16- 843 ML No Growth Day 5 Anaerobic Culture Bottle Final 12/09/16- 843 ML No Growth Day 5 * ML - [facility] ([facility]) . END OF REPORT * ML=Testing performed at Main Lab DEPARTMENT OF PATHOLOGY, [address] [place] [address] Axel Morales M.D. Director [facility] # [id number] 39 >100 to <200 pg/mL: likely compensated congestive heart failure (CHF) 200 to 400 pg/mL: likely moderate CHF >400 pg/mL: likely moderate to severe CHF 40 SEE RESULT BELOW Name: LISA VARGAS Melly : [address]: Marcelle Pearce MD Acct: [id number] Unit: [id number] AGE: 71 Location: ED Re11/28/16 SEX: M Status: REG ER SPEC: [id number] ORTIZ: 11/28/16-[address] [facility] [address]: Marcelle Pearce MD REQ: [id number] RECD: 11/28/16 STATUS: JIMMY OSMAN DR: Jelly Garcia MD _ SOURCE: [facility]: ORDERED: Flu A B Request Procedure Result Reported Site Rapid Influenza A B Request Final 11/28/16- 1329 ML Specimen received for Influenza A/B Molecular testing * ML - MAIN LAB ([facility]) . END OF REPORT * ML=Testing performed at Main Lab DEPARTMENT OF PATHOLOGY, [address] [place] [address] Axel Morales M.D. Director [facility] # [id number] 41 [facility] Severe Sepsis and Septic Shock Management [...] 43 99th percentile=0.04 ng/mL Troponin results at [facility] and [facility] are not interchangeable. 44 Please note: The following may produce a false positive D Dimer test: - Rheumatoid factor greater than 60 IU/ml - Plasma hemoglobin greater than 0.05 gm/dl - Bilirubin greater than 50 mg/dl - Lipids greater than 1000 mg/dl - FDP greater than 20 ug/ml 45 Acute inflammation: >10.00 46 SEE RESULT BELOW Name: LISA VARGAS : [address]: Marco Kevin MD Acct: [id number] Unit: [id number] AGE: 71 Location: [place] [address] Re11/28/16 Dis: 11/29/16 SEX: M Status: DIS IN SPEC: [id number] ORTIZ: 11/28/16-[address] [facility] [address]: Marcelle Pearce MD REQ: [id number] RECD: 11/28/16 STATUS: JIMMY OSMAN DR: [facility] Jelly Garcia MD _ SOURCE: BLOOD,VENO SPDES: ORDERED: Blood Cult Procedure Result Reported Site Aerobic Culture Bottle Final 12/03/161353 ML No Growth Day 5 Anaerobic Culture Bottle Final 12/03/161353 ML No Growth Day 5 * ML - MAIN LAB ([facility]) . END OF REPORT * ML=Testing performed at Main Lab DEPARTMENT OF PATHOLOGY, [address] [place] [address] Axel Morales M.D. Director [facility] # [id number] 47 [employer]ist: [id number] JIM Guthrie Because ethnic data is not [...] inflammation: >10.00 50 Result TnIDx:0.04 Called to [id number] at: 15:32:22 by:[id number] Read back by: [id number] 99th percentile=0.04 ng/mL Troponin results at [facility] and [facility] are not interchangeable. 51 [facility] Severe Sepsis and Septic Shock Management [...] answering service at 1930 on 06/19/15 by [id number]. Doctor to return call. 63 Verbal to answering service at 1930 on 06/19/15 by [id number]. Doctor to return call. 64 Because ethnic [...] dialysis) 66 Critical Result NA:114 Called to [id number] at: 21:10:56 by:[id number] Read back by:[id number] 67 RUN DATE: 09/14/14 [facility] LAB LIVE PAGE 1 RUN TIME: [address] [place] [address] Specimen Inquiry Name: LISA VARGAS : [address]: Phoebe Posada MD Acct: [id number] Unit: [id number] AGE: 68 Location: [facility] Re09/14/14 SEX: M Status: DEP ER SPEC: [id number] ORTIZ: 09/14/[address] [facility] [address]: Phoebe Posada MD REQ: [id number] RECD: 09/14/14 STATUS: JIMMY OSMAN DR: Jelly Garcia MD _ [facility] ORDERED: Rapid Flu A B Procedure Result [...] performed at Main Lab DEPARTMENT OF PATHOLOGY, [address] [place] [address] Axel Morales M.D. Director [facility] # [id number] 68 Because ethnic data is not always [...] PT IS FASTING 78 RUN DATE: 01/13/13 [facility] LAB LIVE PAGE 1 RUN TIME: 5405 [address] [place], [place] [address] Specimen Inquiry Name: LISA VARGAS : [address]: Keven Julio MD Acct: [id number] Unit: [id number] AGE: 67 Location: [facility] Re01/12/13 SEX: M Status: REG REF SPEC: [id number] ORTIZ: 01/12/13- SUBM DR: Keven Julio MD REQ: [id number] RECD: 01/12/13-1155 STATUS: VIKY OSMAN DR: Jelly Garcia MD [...] performed at Main Lab DEPARTMENT OF PATHOLOGY, [address] [place] [address] Axel Morales M.D. Director [facility] Permit #[id number] 79 Serum levels of PSA measured using the Timothy Jana DXI Hybritech immunoassay should not be interpreted [...] has been shown to interfere with the Jendrzakiaik-Blair method for measuring total bilirubin. Samples from patients who have taken Naproxen have shown spurious elevation in total bilirubin levels. 81 RUN DATE: 05/12/12 [facility] NMI LIVE PAGE 1 RUN TIME: 1146 Specimen Inquiry RUN USER: INTERFACE Name: LISA VARGAS Status: REG REF Re05/03/12 Age/Sex: 66/M Unit#: [id number] Location: [facility] : 47 SPEC #: [id number] ORTIZ: 05/03/126623 STATUS: JAKE REQ #: [id number] RECD: 05/03/12-[address]: Radha CARSON,Jelly Ace SOURCE: MYCOSES ENTR: 05/03/12-[address]: VERNON: NAIL ORDERED: FUNGUS CULT SKI QUERIES: MEDENT REQUISITION # [id number] Procedure Result Verified Site > FUNGUS CULTURE SKIN/NAILS Preliminary -1145 ML Organism 1 MYCOTIC ORGANISM - ID TO FOLLOW UNDER SEPARATE REPORT - [facility] Permit #[id number] [facility] [place] [id number] DEPARTMENT OF PATHOLOGY, [facility] [place], [place] [address] [facility] Permit #[id number] Axel Morales M.D. Director Bryan Vail M.D. Certified Diabetes Educator 82 RUN DATE: 05/18/12 [facility] NMI LIVE PAGE 1 RUN TIME: 941 Specimen Inquiry RUN USER: INTERFACE Name: LISA VARGAS Status: REG REF Re05/03/12 Age/Sex: 66/M Unit#: [id number] Location: [place] : 47 SPEC #: [id number] ORTIZ: 05/03/12-306 STATUS: JIMMY REQ #: [id number] RECD: 05/03/[address] [facility] [address]: Radha CARSON,Jelly Ace SOURCE: MYCOSES ENTR: 05/12/121146 [facility] DR: VERNON: NAIL ORDERED: FUNGAL ID FORTINO COMMENTS: TOENAIL Procedure Result Verified Site > FUNGAL IDENTIFICATION - [place] Final ML FUSARIUM SP. Test performed by: [address] [address] ML - [facility] Permit #[id number] [address] [place] [address] DEPARTMENT OF PATHOLOGY, [address] [place] [address] [facility] Permit #[id number] Axel Morales M.D. Director Bryan Vail M.D. Certified Diabetes Educator 83 RUN DATE: 05/24/12 [facility] NMI LIVE PAGE 1 RUN TIME: 1245 Specimen Inquiry RUN USER: INTERFACE Name: LISA VARGAS Status: REG REF Re05/03/12 Age/Sex: 66/M Unit#: [id number] Location: [facility] : 46 SPEC #: [id number] ORTIZ: 05/03/12 STATUS: JIMMY REQ #: [id number] RECD: 05/03/[address] [facility] [address]: Radha CARSON,Jelly Ace SOURCE: MYCOSES ENTR: 05/03/12 [facility] [address]: VERNON: NAIL ORDERED: FUNGUS CULT SKI QUERIES: MEDENT REQUISITION # [id number] ACT WKST: 05/24/12 #1 Procedure Result Verified Site > FUNGUS CULTURE SKIN/NAILS Final -1245 ML Organism 1 MYCOTIC ORGANISM - ID TO FOLLOW UNDER SEPARATE REPORT NO ADDITIONAL GROWTH AFTER 3 WEEKS ML - [facility] Permit #[id number] [address] [place] [address] DEPARTMENT OF PATHOLOGY, [address] [place] [address] [facility] Permit #[id number] Axel Morales M.D. Director Bryan Vail M.D. Certified Diabetes Educator 84 CHOLESTEROL INTERPRETATION: Desirable: Less than 200 [...] than 189 MG/DL 87 RUN DATE: 12/13/11 [facility] NMI LIVE PAGE 1 RUN TIME: 1018 Specimen Inquiry RUN USER: INTERFACE Name: LISA VARGAS Status: REG REF Re12/09/11 Age/Sex: 66/M Unit#: [id number] Location: [facility] : 46 SPEC #: [id number] ORTIZ: 12/09/11-7 STATUS: COMP REQ #: [id number] RECD: 12/09/[address] [facility] [address]: Chino PATEL,Kusum Fallon SOURCE: WOUND ENTR: 12/09/[address]: BRIAN: SeeComment ORDERED: CULT SENS/GS COMMENTS: Specimen Description: CYST ON TAILBONE QUERIES: MEDENT MEDENT REQUISITION # [id number] ACT WKST: B 12/13/11 #1 Procedure Result [...] GRAM POSITIVE COCCI MANY GRAM NEGATIVE DIPLOCOCCI ML - [facility] Permit #[id number] [address] [place] [address] DEPARTMENT OF PATHOLOGY, [address] [place] [address] [facility] Permit #[id number] Axel Morales M.D. Director Bryan Vail M.D. Certified Diabetes Educator 88 * SERUM LEVELS OF PSA MEASURED USING THE TIMOTHY JANA ACCESS HYBRITECH IMMUNOASSAY SHOULD NOT BE INTERPRETED [...] has been shown to interfere with the Jendrassik-Blair method for measuring total bilirubin. Samples from [...] has been shown to interfere with the Jendrassik-Blair method for measuring total bilirubin. Samples from [...] has been shown to interfere with the Jendrassik-[place] method for measuring total bilirubin. Samples from [...] 0.06 ng/mL NOT SUPPORTIVE OF DIAGNOSIS OF CO 0.06 - 0.50 ng/ml INDETERMINATE: SUGGEST SERIAL STUDIES IF CLINICALLY INDICATED. Greater than 0.5 ng/mL CONSISTENT WITH DIAGNOSIS OF CO . Procedures Date CPT Code Description Status Comment 04/10/2014 53454 Nebulizer Treatment Completed 05/16/2013 17404 Spirometry Completed 03/14/2013 79624 Spirometry Completed 01/12/2013 Colonoscopy Completed Normal 12/01/2011 04018 EKG, at Least 12 Leads w/Interpretation and Completed Report 06/02/2011 55523 EKG, at Least 12 Leads w/Interpretation and Completed Report Encounters Type Date Location Provider CPT E/M Dx Office Visit 11/20/2017 9:15a Main Office Jelly Garcia M.D., R.D. 07392 J44.1 Office Visit 11/02/2017 9:15a Main Office Jelly Garcia M.D., R.D. 29023 J44.1 Office Visit 10/07/2017 10:15a Main Office Jelly Garcia M.D., R.D. 21876 J44.1 Office Visit 07/28/2017 4:30p Main Office Jelly Garcia M.D., R.DLanre 00480 J44.1 Office Visit 06/17/2017 3:15p Main Office Jelly Garcia M.D., R.D. 69398 J44.1 I48.91 K25.0 B02.9 Office Visit 05/27/2017 4:45p Main Office Jelly Garcia M.D., R.D. 71157 J44.1 J18.8 I48.91 D64.9 B02.9 Office Visit 03/16/2017 10:15a Main Office Jelly Garcia M.D., R.D. 67520 J44.1 J18.8 I48.91 Office Visit 03/09/2017 11:30a Main Office Jelly Garcia M.D., R.D. 23597 J44.1 J18.8 I48.91 Office Visit 12/31/2016 11:45a Main Office Jelly Garcia M.D., R.D. 54222 J18.8 D64.9 I48.91 K25.0 Office Visit 11/28/2016 10:45a Main Office MANAN Martinez 53375 J44.1 Office Visit 11/10/2016 10:15a Main Office Jelly Garcia M.D., R.D. 74587 I48.91 J18.9 Office Visit 10/02/2016 9:15a [place] [address] J44.1 Office Visit 04/07/2016 9:45a Main Office JUAN J MartinezP-Melly 91582 J44.1 Office Visit 02/20/2016 9:30a Main Office Jelly Garcia M.D., R.Sri 45578 Z00.00 J44.9 I10 E78.2 Office Visit 01/15/2016 1:30p Main Office Keny Proctornasrin KIM, [facility]- [address] J44.1 Office Visit 12/13/2015 3:30p [place] [address] J44.1 Office Visit 09/06/2015 10:00a Main Office Amparo Borrego M.D. 20891 J44.1 Office Visit 09/04/2015 8:45a Main Office MANAN Martinez 42251 J44.0 Office Visit 08/28/2015 11:30a Main Office MANAN Martinez 18548 J44.0 Office Visit 08/20/2015 3:00p Main Office Jelly Garcia M.D., R.DLanre 58476 J44.0 J20.9 E87.1 Office Visit 07/30/2015 4:00p Main Office Jelly Garcia M.D., R.DLanre 64085 J44.0 E87.1 Office Visit 07/02/2015 10:45a Main Office MANAN Martinez 99371 E87.1 Office Visit 06/19/2015 2:00p Main Office MANAN Martinez 94557 J44.0 R42 Office Visit 07/28/2014 9:30a Main Office MANAN Martinez 14902 491.22 V03.82 Office Visit 06/15/2014 10:45a Main Office MANAN Martinez 25408 491.22 Office Visit 04/10/2014 1:45p Main Office MANAN Martinez 37466 491.22 Office Visit 12/21/2013 9:30a Main Office Jelly Garcia M.D., R.D. G0439 V70.0 496 401.9 272.2 782.7 Office Visit 07/18/2013 2:45p Main Office Jelly Garcia M.D., R.Sri 06795 496 Office Visit 05/16/2013 11:00a Main Office Jelly Garcia M.D., Emily.Sri 20746 496 V04.81 Office Visit 03/28/2013 9:30a Main Office MANAN Martinez 18619 491.22 Office Visit 03/14/2013 9:00a Main Office MARYJANE Bhatti-C 26090 491.22 Office Visit 02/22/2013 11:45a Main Office MARYJANE Bhatti-C 33686 491.22 Office Visit 12/20/2012 1:45p Main Office Jelly Garcia M.D., R.Sri 37992 V70.0 V70.0 496 496 401.9 401.9 272.2 272.2 238.2 Office Visit 12/08/2012 12:00p Main Office Jelly Garcia M.D., R.Sri 56566 486 465.9 496 Office Visit 11/29/2012 10:00a Main Office MARYJANE Bhatti-C 84755 486 Office Visit 11/27/2012 11:00a Main Office MARYJANE Bhatti-C 81508 486 Office Visit 11/23/2012 9:15a Main Office MANAN Martinez 91812 465.9 Office Visit 10/06/2012 10:30a Main Office Jelly Garcia M.D., R.Sri 01181 465.9 496 Office Visit 05/03/2012 2:45p Main Office Jelly Garcia M.D., R.Sri 90557 110.1 Office Visit 12/09/2011 12:00p Main Office MANAN Martinez 26489 685.0 Office Visit 12/01/2011 2:00p Main Office Jelly Garcia M.D., R.Sri 38158 496 272.2 401.9 Office Visit 10/17/2011 9:00a Main Office RENETTA MartinezC 54293 461.8 Office Visit 10/08/2011 11:00a Main Office Jelly Garcia M.D., R.DLanre 58760 496 465.9 995.3 Office Visit 06/02/2011 1:30p Main Office Jelly Garcia M.D., R.DLanre 13074 V70.0 496 401.9 272.2 V10.46 461.1 794.31 V04.81 Office Visit 01/08/2011 10:45a Main Office Jelly Garcia M.D., R.D. 32435 486 496 Office Visit 12/16/2010 9:30a Main Office Tashia Richey [facility]-C 97976 486 Office Visit 10/30/2010 12:15p Main Office Jelly Garcia M.D., R.D. 85750 496 Office Visit 10/07/2010 10:00a Main Office Jelly Garcia M.D., R.D. 49630 401.9 272.2 496 Plan of Care No Information Available
--- NOTE | 2017-12-23 14:34 | RAD ---
INDICATION: Short of breath COMPARISON: September 28, 2017 TECHNIQUE: An AP portable view obtained at 1357 hours is submitted. FINDINGS: Bones/Soft Tissues: There are no acute bony findings. There are old right-sided rib fractures Cardiomediastinal: The cardiomediastinal silhouette is normal. Lungs: There is hyperinflation with chronic interstitial change. There is infiltrate left lung base with mild worsening. Pleura: Small bilateral pleural effusions. Other: None IMPRESSION: CHRONIC LUNG FINDINGS WITH HYPERINFLATION. LEFT BASE INFILTRATE. SMALL BILATERAL PLEURAL EFFUSIONS
[2017-12-23] MEDS ORDERED: NS 0.9% 1000 ML* 1,000 ML IV ONE (14:36)
[2017-12-23] MEDS ORDERED: Levofloxacin 750 MG IVPREMIX(* 750 MG/150 ML BAG IVPB ONE (14:36)
[2017-12-23 15:30] LABS: INR 3.81 (0.77-1.02)
[2017-12-23 15:32] LABS: Hematocrit 13 % (42-52); Hemoglobin 3.8 g/dl (14.0-18.0); Mean Corpuscular HGB Conc 29 g/dl (31-36); Mean Corpuscular Hemoglobin 19 pg (27-31); Mean Corpuscular Volume 65 fL (80-94); Mean Platelet Volume 8.7 um3 (7.4-10.4); Platelet Count 289 10^3/ul (150-450); Red Blood Count 2.05 10^6/ul (4.0-5.4); Red Cell Distribution Width 20 % (10.5-15); White Blood Count 8.9 10^3/ul (3.5-10.8)
[2017-12-23 15:36] LABS: EGFR Non-African American 52.5 (>60)
[2017-12-23 15:57] LABS: ABS Basophils 0 10^3/ul (0-0.2); ABS Eosinophils 0 10^3/ul (0-0.6); ABS Lymphocytes 0.1 10^3/ul (1.0-4.8); ABS Monocytes 0.9 10^3/ul (0-0.8); ABS Neutrophils 7.8 10^3/ul (1.5-7.7); ABS Nucleated RBC 0.2 10^3/ul; Eosinophil % 0 % (0-6); Lymphocyte % 0.7 % (25-47); Nucleated Red Blood Cells % 2.2
--- NOTE | 2017-12-23 16:46 | HP ---
H&P (Free Text) History and Physical: History and Physical - Critical Care Requesting Physician: Dr Peewee Garner Reason for admission: acute blood loss anemia, suspected GI hemorrhage Limitations in history/physical: none HPI: 72y M pmhx of COPD on home O2 4L, Afib, h/o PE 2017 on Xarelto, CAD, HLD, HTN, CHF, h/o GI hemorrhage 12/2016, Prostate Ca s/p prostatectomy. Patient reports increasing shortness of breath for days now, requiring increased NC to 8L at home. Difficulty performing tasks. Reports no chest pain. No cough/sputum production/sick contacts/fever/chills. No increased LE swelling, but improving compared to prior. He denies dark stools or bleeding from stools, denies vomiting at all. Brought to ER, was tachycardic, BP 100-110s systolic, tachypneic mild, placed on 50% VM and more with improved sats, afebrile. CXR unchanged as prior. Labs demonstrating coagulopathy, acute blood loss anemic with hg 3.8, elevated Creatinine and LFTs. ROS: negative except for pertinent positives mentioned above. PMHx: COPD on home O2 4L, Afib, h/o PE 2017 on Xarelto, CAD, HLD, HTN, CHF, h/o GI hemorrhage 12/2016, Prostate Ca s/p prostatectomy PSHx: prostatectomy Family History: history of cardiac disease, HTN, COPD in family Social History: Alcohol-none, Smoking-former smoker, Drug use-none Allergies: Allergies Allergy/AdvReac Type Severity Reaction Status Date / Time Adhesive Tape [Plastic Tape] Allergy Intermediate Bleeding Verified 12/23/17 14: 25 simvastatin Allergy See Comment Verified 12/23/17 14:25 Home Medications: Tiotropium CAP.INH* [Spiriva CAP.INH*] 1 cap INH DAILY 08/06/13 [History Confirmed 12/23/17] Albuterol HFA INHALER* [Ventolin HFA Inhaler*] 2 puff INH QID PRN #0 05/11/14 [ History Confirmed 12/23/17] Albuterol/Ipratropium RESP(NF) [Combivent Respimat (NF)] 2 puff INH QID PRN [History Confirmed 12/23/17] Budesonide/Formote 160/4.5(NF) [Symbicort 160/4.5 (NF)] 2 puff INH BID 03/31/17 [History Confirmed 12/23/17] Montelukast Sodium TAB* [Singulair 10 MG TAB*] 10 mg PO DAILY 03/31/17 [History Confirmed 12/23/17] Citalopram TAB* [Celexa TAB*] 10 mg PO DAILY tab 05/19/17 [Rx Confirmed ] Furosemide TAB* [Lasix TAB*] 40 mg PO BID #30 tab 05/19/17 [Rx Confirmed ] Azithromycin TAB* [Zithromax TAB (Z-SUSAN) 250 mg #6 tabs] 250 mg PO DAILY [History Confirmed 12/23/17] Omeprazole CAP* [Prilosec CAP* 20 MG] 20 mg PO BID 11/16/17 [History Confirmed 12/23/17] Rivaroxaban TAB(*) [Xarelto 20 mg] 20 mg PO DAILY 11/16/17 [History Confirmed ] Cholecalciferol (Vitamin D3) [Vitamin D3] 1,000 unit PO DAILY 11/17/17 [History Confirmed 12/23/17] Aspirin EC TAB* [Ecotrin EC Low Dose 81 MG*] 81 mg PO DAILY 12/23/17 [History Confirmed 12/23/17] amLODIPine TAB* [Norvasc 5 mg TAB*] 10 mg PO DAILY 12/23/17 [History Confirmed 12/23/17] Tele: Afib, rate controlled Vitals: Vital Signs Temp 98.9 F 12/23/17 14:22 Pulse 84 12/23/17 16:23 Resp 17 12/23/17 16:23 BP 107/60 12/23/17 16:23 Pulse Ox 100 12/23/17 16:23 Intake & Output 12/22/17 12/23/17 12/23/17 18:59 06:59 18:59 Weight 140 lb O2/Vent: aerosol mask Infusions: heplock Current Medications: Albuterol (Ventolin 2.5 Mg/3 Ml Neb.Mariella*) 2.5 mg INH Q4H PRN PRN Reason: SOB/WHEEZING Ipratropium Ribera (Atrovent 0.5 Mg Neb.Mariella*) 0.5 mg INH Q4H PRN PRN Reason: SOB/WHEEZING Montelukast Sodium (Singulair Tab*) 10 mg PO DAILY SHAUNA Pantoprazole Sodium (Protonix Iv*) 80 mg IV ONCE ONE Stop: 12/23/17 16:51 Pantoprazole Sodium (Protonix Iv*) 40 mg IV Q12H SHAUNA Tiotropium Ribera (Spiriva Cap.Inh*) 1 cap INH DAILY SHAUNA Physical Exam: General: awake, alert, mild distress, no diaphoresis Head: normocephalic, atraumatic HEENT: ++pallor, no icterus, dry mucous membranes Neck: soft, supple, no jvd, no stridor CVS: normal rate, irregular, no murmur Resp: bilateral air entry but diminshed, no rhales, no wheeze, no rhonchi, no acc muscle use Abdomen: soft, nontender, nondistended, bowel sounds present Ext: pulses+, cool, 2+ bilateral LE edema with chronic skin changes Skin: intact Neuro: awake, alert, orientedx3, moving all extremities, no gross focal deficit Labs: Laboratory Results - last 24 hr 12/23/17 12/23/17 12/23/17 14:53 14:53 14:53 WBC RBC Hgb Hct MCV MCH MCHC RDW Plt Count MPV Neut % (Auto) Lymph % (Auto) Dougherty % (Auto) Eos % (Auto) Baso % (Auto) Absolute Neuts (auto) Absolute Lymphs (auto) Absolute Monos (auto) Absolute Eos (auto) Absolute Basos (auto) Absolute Nucleated RBC Nucleated RBC % Hypochromasia Target Cells Elliptocytes INR (Anticoag Therapy) 3.81 H Sodium 138 L Chloride 101 Carbon Dioxide 21 L BUN 47 H Creatinine 1.34 H Est GFR ( Amer) 67.6 Est GFR (Non-Af Amer) 52.5 BUN/Creatinine Ratio 35.1 H Glucose 118 H Calcium 8.8 Total Bilirubin 0.80 AST 465 H Alkaline Phosphatase 49 Troponin I 0.20 H* C-Reactive Protein 14.70 H B-Natriuretic Peptide 1157 H Total Protein 6.0 L Albumin 4.0 Globulin 2.0 Albumin/Globulin Ratio 2.0 Blood Type Antibody Screen Crossmatch 12/23/17 12/23/17 14:53 14:53 WBC 8.9 RBC 2.05 L Hgb 3.8 L* Hct 13 L MCV 65 L MCH 19 L MCHC 29 L RDW 20 H Plt Count 289 MPV 8.7 Neut % (Auto) 88.6 H Lymph % (Auto) 0.7 L Dougherty % (Auto) 10.6 H Eos % (Auto) 0 Baso % (Auto) 0.1 Absolute Neuts (auto) 7.8 H Absolute Lymphs (auto) 0.1 L Absolute Monos (auto) 0.9 H Absolute Eos (auto) 0 Absolute Basos (auto) 0 Absolute Nucleated RBC 0.2 Nucleated RBC % 2.2 Hypochromasia 3+ Target Cells 1+ Elliptocytes 1+ INR (Anticoag Therapy) Sodium Chloride Carbon Dioxide BUN Creatinine Est GFR ( Amer) Est GFR (Non-Af Amer) BUN/Creatinine Ratio Glucose Calcium Total Bilirubin AST Alkaline Phosphatase Troponin I C-Reactive Protein B-Natriuretic Peptide Total Protein Albumin Globulin Albumin/Globulin Ratio Blood Type A Positive Antibody Screen Negative Crossmatch See Detail Imaging: cxr 12/23 hyperinflated lungs, mild interstitial changes as prior cxr, left basal atelectasis +/- infiltrate similar as prior EKG 12/23 nsr, V5-V6 mild ST depressions+ Assessment: 72y M pmhx of COPD on home O2 4L, Afib, h/o PE 2017 on Xarelto, CAD , HLD, HTN, CHF, h/o GI hemorrhage 12/2016, Prostate Ca s/p prostatectomy. Patient reports increasing shortness of breath for days now, requiring increased NC to 8L at home. Difficulty performing tasks. Reports no chest pain. No cough/sputum production/sick contacts/fever/chills. No increased LE swelling , but improving compared to prior. He denies dark stools or bleeding from stools , denies vomiting at all. Brought to ER, was tachycardic, BP 100-110s systolic, tachypneic mild, placed on 50% VM and more with improved sats, afebrile. CXR unchanged as prior. Labs demonstrating coagulopathy, acute blood loss anemic with hg 3.8, elevated Creatinine and LFTs. -Acute Blood loss anemia -acute hypoxic respiratory failure 2/2 to acute anemia -LOLY -Shock Liver -Coagulopathy 2/2 to shock liver/hypoperfusion/anemia -metabolic acidosis Plan: Neuro- stable CVS- not hypotensive. clinically dry appearing, has peripheral edema. acute anemia, hg 3.8, for PRBC. FFP for coagulopathy, though pt on xarelto, likely has shock liver component causing rise in INR. will probably need more central access for transfusions of products. IVF NS as needed PRN. follow urine output. hold antihypertensives for now. Afib, rate controlled. Hold all further AC for now. Resp- resp distress likely from poor oxygen carrying capacity as a result of acute anemia in setting of COPD and chronic hypoxia. supplemental o2, keep sats 90-92%. Bronchodilators PRN. CXR no sig new infiltrate. will hold abx, afebrile. ID- afebrile. wbc 9. CXR appears similar, no acute findings or symptoms of pneumonia/bronchitis or other source. Hold abx and monitor. GI- no vomitting or dark stools. send fobt. start PPI IV bid. NPO for now. GI consulted. No AC. PRBC and FFP. trend LFTs, suspect shock liver from hypoperfusion/anemia. Renal- LOLY, likely from hypoperfusion/anemia. IVF as needed. monitor urine output. pending K level. Metabolic acidosis+ also. Julian as needed. Xarelto likely in his body longer due to renal insuff. Heme- acute blood loss anemia. coagulopathy 2/2 to Xarelto as well as shock liver causing INR rise. Will give FFP for reversal. PRBC transfusion 3 units. Unclear source of bleeding, suspect GI, history of GI bleed. Endo- fingersticks as needed Musculsk- bedrest Wounds- none Nutrition- NPO for now DVT prophylaxis: SCDs; hold AC GI prophylaxis: PPI IV Central Line: no Arterial Line: no Julian Cathetor: no Disposition: admit to ICU; expected length of stay >2midnights Code Status: full code Total Critical Care time is 60 minutes, excluding procedures/teaching Jose Spear MD Marketing Professor (Electronically Signed)
[2017-12-23] MEDS ORDERED: Pantoprazole IV* 40 MG IV ONE (16:50)
--- NOTE | 2017-12-23 17:03 | PN ---
Progress Note - Progress Note Date of Service: 12/23/17 Note: correction: assessment ; acute on chronic hypoxic resp failure
[2017-12-23] MEDS ORDERED: Calcium Gluconate INJ* 2 GM in NS 0.9% 100 ML* 100 ML IV ONE (18:55)
[2017-12-23] MEDS ORDERED: Dextrose 50% Syringe 50 ML* 25 GM/50 ML SYRINGE IV PUSH PRN (18:56)
[2017-12-23] MEDS ORDERED: Insulin REGULAR(*) 1 UNITS UNIT IV PUSH ONE (18:56)
[2017-12-23] MEDS: Ipratropium 0.5MG/2.5ML NEB* 0.5 MG/2.5 ML NEB.SOLN INH PRN (20:02)
[2017-12-23] MEDS: Albuterol 2.5 MG/3 ML NEB.SOL* (0.083%) INH PRN (20:02)
--- NOTE | 2017-12-23 21:09 | ED ---
Beatrice Mckeon Nilda, scribed for Peewee Garner MD on 12/23/17 at 1407 . Shortness of Breath - HPI Summary HPI Summary: This patient is a 72 year old M BIBA with a chief complaint of constant respiratory distress waking up this morning. The patient rates the pain 0/10 in severity. Symptoms aggravated by nothing and alleviated by O2. PMHx includes COPD and AFib. - History of Current Complaint Time Seen by Provider: 12/23/17 13:31 Hx Obtained From: Patient Onset/Duration: Sudden Onset, Lasting Hours, Still Present Timing: Constant Current Severity: Severe Dyspnea At: Rest Aggrevating Factors: Nothing Alleviating Factors: Oxygen - Allergy/Home Medications Allergies/Adverse Reactions: Allergies Allergy/AdvReac Type Severity Reaction Status Date / Time Adhesive Tape [Plastic Tape] Allergy Intermediate Bleeding Verified 12/23/17 14: 25 simvastatin Allergy See Comment Verified 12/23/17 14:25 Home Medications: Home Medications Aspirin EC TAB* [Ecotrin EC Low Dose 81 MG*] 81 mg PO DAILY 12/23/17 [History Confirmed 12/23/17] amLODIPine TAB* [Norvasc 5 mg TAB*] 10 mg PO DAILY 12/23/17 [History Confirmed 12/23/17] PMH/Surg Hx/FS Hx/Imm Hx Endocrine/Hematology History: Reports: Hx Anticoagulant Therapy - Coumadin, Hx Anemia Denies: Hx Diabetes, Hx Thyroid Disease Cardiovascular History: Reports: Hx Cardiomegaly, Hx Congestive Heart Failure, Hx Coronary Artery Disease, Hx Hypercholesterolemia, Hx Hypertension, Other Cardiovascular Problems/Disorders - Afib Denies: Hx Pacemaker/ICD Respiratory History: Reports: Hx Chronic Obstructive Pulmonary Disease (COPD) - chronic resp failure, 3-4L O2 at home per H&P, Hx Pneumonia, Hx Pulmonary Embolism, Other Respiratory Problems/Disorders - COPD Denies: Hx Asthma GI History: Reports: Hx Gastrointestinal Bleed - December 2016 Denies: Hx Ulcer History: Reports: Other Problems/Disorders - prostatectomy Denies: Hx Dialysis Musculoskeletal History: Reports: Hx Orthopedic Injury - broken left ankle ( many years ago), Other Musculoskeletal History - rotator cuff surgery Denies: Hx Back Problems Sensory History: Reports: Hx Cataracts, Hx Contacts or Glasses Denies: Hx Hearing Aid, Hx Hearing Problem Opthamlomology History: Reports: Hx Cataracts, Hx Contacts or Glasses Neurological History: Denies: Hx Dementia, Hx Seizures Psychiatric History: Denies: Hx Panic Disorder - Cancer History Cancer Type, Location and Year: PROSTATE yrs ago - Surgical History Surgery Procedure, Year, and Place: PROSTATECTOMY,TONSILLECTOMY; CARDIAC CATH- - NO STENTS PLACED Hx Anesthesia Reactions: No Infectious Disease History: Denies: Hx Clostridium Difficile, Hx Hepatitis, Hx Human Immunodeficiency Virus (HIV), Hx of Known/Suspected MRSA, Hx Shingles, Hx Tuberculosis, Hx Known/ Suspected VRE, Hx Known/Suspected VRSA, History Other Infectious Disease, Traveled Outside the [place] in Last 30 Days - Family History Known Family History: Positive: Cardiac Disease, Hypertension, Respiratory Disease - COPD - Social History Alcohol Use: None Hx Substance Use: No Substance Use Type: Reports: None Hx Tobacco Use: No Smoking Status (MU): Former Smoker Type: Cigarettes Amount Used/How Often: 30 +years Review of Systems Negative: Fever Positive: Shortness Of Breath All Other Systems Reviewed And Are Negative: Yes Physical Exam - Summary Physical Exam Summary: Appearance: The patient is well-nourished in no acute distress and in no acute pain. Skin: The skin is warm and dry and skin color reflects adequate perfusion. HEENT: The head is normocephalic and atraumatic. The pupils are equal and reactive. The conjunctivae are clear and without drainage. Nares are patent and without drainage. Mouth reveals moist mucous membranes and the throat is without erythema and exudate. The external ears are intact. The ear canals are patent and without drainage. The tympanic membranes are intact. Neck: the neck is supple with full range of motion and non-tender. There are no carotid bruits. There is no neck vein distension. Respiratory: Chest is non-tender. Decreased breath sounds, Tachypnea. Cardiovascular: Heart is tachycardic. There is no murmur or rub auscultated. There is no peripheral edema and pulses are symmetrical and equal. Abdomen: The abdomen is soft and non-tender. There are normal bowel sounds heard in all four quadrants and there is no organomegaly palpated. Musculoskeletal: There is no back tenderness noted. Extremities are non-tender with full range of motion. There is good capillary refill. There is no peripheral edema or calf tenderness elicited. Neurological: Patient is alert and oriented to person, place and time. The patient has symmetrical motor strength in all four extremities. Cranial nerves are grossly intact. Deep tendon reflexes are symmetrical and equal in all four extremities. Psychiatric: The patient has an appropriate affect and does not exhibit any anxiety or depression. Triage Information Reviewed: Yes Vital Signs On Initial Exam: Initial Vitals Pulse Resp Pulse Ox 106 23 100 12/23/17 13:32 12/23/17 13:32 12/23/17 13:32 Vital Signs Reviewed: Yes Diagnostics - Vital Signs Vital Signs Temp Pulse Resp BP Pulse Ox 12/23/17 16:18 93 20 107/62 100 12/23/17 16:13 87 18 103/69 100 12/23/17 16:08 88 14 106/59 97 12/23/17 16:03 86 19 103/59 100 12/23/17 16:00 86 24 98 12/23/17 15:58 86 17 108/59 100 12/23/17 15:53 90 20 108/69 100 12/23/17 15:48 92 26 110/65 100 12/23/17 15:43 97 16 111/69 100 12/23/17 15:38 86 17 103/69 100 12/23/17 15:33 31 105/62 12/23/17 15:28 91 16 109/60 100 12/23/17 15:23 96 19 103/64 100 12/23/17 15:18 90 21 102/56 100 12/23/17 15:13 88 19 109/61 100 12/23/17 15:08 91 16 104/66 100 12/23/17 15:03 95 18 116/68 100 12/23/17 15:01 98 20 100 12/23/17 15:00 104 24 100/62 100 12/23/17 14:37 94 17 110/68 100 12/23/17 14:32 93 17 112/66 99 12/23/17 14:27 93 18 110/72 100 12/23/17 14:23 94 20 114/63 100 12/23/17 14:22 98.9 F 92 15 114/63 100 12/23/17 14:17 93 19 109/64 98 12/23/17 14:12 92 3 111/67 100 12/23/17 14:07 92 16 112/66 100 12/23/17 14:02 101 17 113/71 100 04/18/18 14:00 102 22 100 12/23/17 13:58 103 17 107/74 100 12/23/17 13:52 102 20 110/71 100 12/23/17 13:47 101 25 112/70 100 12/23/17 13:42 101 20 123/71 100 12/23/17 13:37 104 16 107/72 94 12/23/17 13:33 104 20 116/80 100 12/23/17 13:32 106 23 100 - Laboratory Lab Results: Lab Results 12/23/17 12/23/17 12/23/17 Range/Units 14:53 14:53 14:53 WBC (3.5-10.8) 10^3/ul RBC (4.0-5.4) 10^6/ul Hgb (14.0-18.0) g/dl Hct (42-52) % MCV (80-94) fL MCH (27-31) pg MCHC (31-36) g/dl RDW (10.5-15) % Plt Count (150-450) 10^3/ul MPV (7.4-10.4) um3 Neut % (Auto) (38-83) % Lymph % (Auto) (25-47) % [place] % (Auto) (0-7) % Eos % (Auto) (0-6) % Baso % (Auto) (0-2) % Absolute Neuts (auto) (1.5-7.7) 10^3/ul Absolute Lymphs (auto) (1.0-4.8) 10^3/ul Absolute Monos (auto) (0-0.8) 10^3/ul Absolute Eos (auto) (0-0.6) 10^3/ul Absolute Basos (auto) (0-0.2) 10^3/ul Absolute Nucleated RBC 10^3/ul Nucleated RBC % Hypochromasia Target Cells Elliptocytes Hem Pathologist Commnt INR (Anticoag Therapy) 3.81 H (0.77-1.02) Sodium 138 L (139-145) mmol/L Potassium 6.5 H* (3.5-5.0) mmol/L Chloride 101 (101-111) mmol/L Carbon Dioxide 21 L (22-32) mmol/L Anion Gap 16 H (2-11) mmol/L BUN 47 H (6-24) mg/dL Creatinine 1.34 H (0.67-1.17) mg/dL Est GFR ( Amer) 67.6 (>60) Est GFR (Non-Af Amer) 52.5 (>60) BUN/Creatinine Ratio 35.1 H (8-20) Glucose 118 H (70-100) mg/dL Lactic Acid (0.5-2.0) mmol/L Calcium 8.8 (8.6-10.3) mg/dL Total Bilirubin 0.80 (0.2-1.0) mg/dL AST 465 H (13-39) U/L ALT 560 H (7-52) U/L Alkaline Phosphatase 49 (34-104) U/L Troponin I 0.20 H* (<0.04) ng/mL C-Reactive Protein 14.70 H (< 5.00) mg/L B-Natriuretic Peptide 1157 H ( - 100) pg/mL Total Protein 6.0 L (6.4-8.9) g/dL Albumin 4.0 (3.2-5.2) g/dL Globulin 2.0 (2-4) g/dL Albumin/Globulin Ratio 2.0 (1-3) Blood Type Antibody Screen Crossmatch 12/23/17 12/23/17 12/23/17 Range/Units 14:53 14:53 14:53 WBC 8.9 (3.5-10.8) 10^3/ul RBC 2.05 L (4.0-5.4) 10^6/ul Hgb 3.8 L* (14.0-18.0) g/dl Hct 13 L (42-52) % MCV 65 L (80-94) fL MCH 19 L (27-31) pg MCHC 29 L (31-36) g/dl RDW 20 H (10.5-15) % Plt Count 289 (150-450) 10^3/ul MPV 8.7 (7.4-10.4) um3 Neut % (Auto) 88.6 H (38-83) % Lymph % (Auto) 0.7 L (25-47) % [place] % (Auto) 10.6 H (0-7) % Eos % (Auto) 0 (0-6) % Baso % (Auto) 0.1 (0-2) % Absolute Neuts (auto) 7.8 H (1.5-7.7) 10^3/ul Absolute Lymphs (auto) 0.1 L (1.0-4.8) 10^3/ul Absolute Monos (auto) 0.9 H (0-0.8) 10^3/ul Absolute Eos (auto) 0 (0-0.6) 10^3/ul Absolute Basos (auto) 0 (0-0.2) 10^3/ul Absolute Nucleated RBC 0.2 10^3/ul Nucleated RBC % 2.2 Hypochromasia 3+ Target Cells 1+ Elliptocytes 1+ Hem Pathologist Commnt Pending INR (Anticoag Therapy) (0.77-1.02) Sodium (139-145) mmol/L Potassium (3.5-5.0) mmol/L Chloride (101-111) mmol/L Carbon Dioxide (22-32) mmol/L Anion Gap (2-11) mmol/L BUN (6-24) mg/dL Creatinine (0.67-1.17) mg/dL Est GFR ( Amer) (>60) Est GFR (Non-Af Amer) (>60) BUN/Creatinine Ratio (8-20) Glucose (70-100) mg/dL Lactic Acid 6.5 H* (0.5-2.0) mmol/L Calcium (8.6-10.3) mg/dL Total Bilirubin (0.2-1.0) mg/dL AST (13-39) U/L ALT (7-52) U/L Alkaline Phosphatase (34-104) U/L Troponin I (<0.04) ng/mL C-Reactive Protein (< 5.00) mg/L B-Natriuretic Peptide ( - 100) pg/mL Total Protein (6.4-8.9) g/dL Albumin (3.2-5.2) g/dL Globulin (2-4) g/dL Albumin/Globulin Ratio (1-3) Blood Type A Positive Antibody Screen Negative Crossmatch See Detail Result Diagrams: 12/23/17 14:53 12/23/17 14:53 Lab Statement: Any lab studies that have been ordered have been reviewed, and results considered in the medical decision making process. - Radiology CXR Radiology Interpretation Completed By: Radiologist - CXR, per radiologist, reveals CHRONIC LUNG FINDINGS WITH HYPERINFLATION. LEFT BASE INFILTRATE. SMALL BILATERAL PLEURAL EFFUSIONS. Dr. Garner reviewed this report. - EKG 1349 Cardiac Rate: NL EKG Rhythm: Sinus Rhythm - 98 bpm EKG Comparison: Other - ST depressions anterolaterally new from 04/07/17. Re-Evaluation - Re-Evaluation First Eval Re-Evaluation Time: 14:58 Comment: Pt feels better. Course/Dx - Course Course Of Treatment: Mr. Vargas presented on C-Pap with SOB of several days duration getting worse. Reportedly his SPO2 was 86% on 6 liters. He had no wheezes on arrival and was put on a face mask at 10 liters and maintained his sats. He was found to be quite anemic and blood was ordered for him and the onshore diver was contacted. He is being admitted to the ICU at this time. - Diagnoses Provider Diagnoses: Severe anemia, Hyperkalemia - Physician Notifications Discussed Care of Patient With: Lima Alvares - Hospitalist Time Discussed With Above Provider: 14:45 Instructed by Provider To: Admit As Inpatient Discharge - Sign-Out/Discharge Documenting (check all that apply): Discharge - Discharge Plan Condition: Guarded Disposition: ADMITTED TO [facility] - Billing Disposition and Condition Condition: GUARDED [place] [place] The documentation as recorded by the Beatrice davis Nilda accurately reflects the service I personally performed and the decisions made by me, Peewee Garner MD.
[2017-12-24 00:39] LABS: EGFR Non-African American 51.2 (>60)
[2017-12-24 00:40] LABS: INR 3.39 (0.77-1.02)
[2017-12-24] MEDS: Ipratropium 0.5MG/2.5ML NEB* 0.5 MG/2.5 ML NEB.SOLN INH PRN ×2 (05:49→15:20)
[2017-12-24] MEDS: Albuterol 2.5 MG/3 ML NEB.SOL* (0.083%) INH PRN ×2 (05:49→15:20)
[2017-12-24 06:25] LABS: Hematocrit 18 % (42-52); Hemoglobin 5.5 g/dl (14.0-18.0); Mean Corpuscular HGB Conc 31 g/dl (31-36); Mean Corpuscular Hemoglobin 22 pg (27-31); Mean Corpuscular Volume 70 fL (80-94); Mean Platelet Volume 8.8 um3 (7.4-10.4); Platelet Count 165 10^3/ul (150-450); Red Blood Count 2.52 10^6/ul (4.0-5.4); Red Cell Distribution Width 23 % (10.5-15)
[2017-12-24 06:35] LABS: EGFR Non-African American 63.3 (>60)
[2017-12-24 07:24] LABS: INR 2.25 (0.77-1.02)
[2017-12-24] MEDS ORDERED: Pantoprazole IV* 40 MG IV SCH (08:00)
--- NOTE | 2017-12-24 08:31 | RAD ---
INDICATION: Increased shortness of breath COMPARISON: 2017 TECHNIQUE: An AP portable view obtained at 0800 hours is submitted. FINDINGS: Bones/Soft Tissues: There are no acute bony findings. Cardiomediastinal: The heart is normal in size. Central pulmonary vessels and interstitium are prominent consistent with interstitial congestion with mild worsening. Lungs: Worsening airspace disease in the lung bases left greater than right May represent alveolar edema although infectious infiltrate could also have this appearance. Pleura: Small bilateral pleural effusions, unchanged. Other: None IMPRESSION: INCREASED INTERSTITIAL PROMINENCE CONSISTENT WITH VASCULAR CONGESTION SUPERIMPOSED UPON CHRONIC CHANGE. WORSENING AERATION OF THE LUNG BASES.
[2017-12-24] MEDS: Montelukast Sodium TAB* 10 MG PO SCH (08:41)
[2017-12-24] MEDS ORDERED: Spiriva Inhaler DEVICE* 1 EACH DEVICE INH ONE (09:00)
[2017-12-24] MEDS ORDERED: Furosemide IV* 10 MG/ML 2 ML VIAL (20 MG) IV SLOW PU ONE ×2 (09:41→15:50)
[2017-12-24] MEDS: Tiotropium CAP.INH* CAP.INH/18 MCG (USE ORDER SET !) INH SCH (10:00)
[2017-12-24] MEDS: methylPREDNISolone SOD 40 MG* 1 ML VIAL IV SCH ×2 (10:16→23:31)
[2017-12-24] MEDS: Pantoprazole IV* 80 MG in NS 0.9% 250 ML* 250 ML IVPB SCH ×2 (11:21→20:53)
--- NOTE | 2017-12-24 11:36 | CONS ---
CC: Dr. Jelly Garcia CONSULTATION REPORT: DATE OF CONSULT: 12/24/17 HISTORY OF PRESENT ILLNESS: Thank you for asking me to see Mr. Celis. As you know, he is a 72-ye ar-old male with oxygen-dependent COPD on 4 L at home, also with a history of atrial fibrillation and pulmonary embolism, on Xarelto. The patient did have a prior GI hemorrhage back in December of 2016 an d was noted to have gastric and duodenal ulcers. [facility] of the prior ulcers. His most recent colonoscopy was in January of 2013 remarkable for some tiny polyps and diverticulosis. The patient apparently has been having worsening shortness of breath for several days and had actually increased his O2 sat to 10 L. The patient denies any bl ack stools, rectal bleeding, nausea, vomiting, or hematemesis. In the emergency room, he was mildly hypotensive as well as tachycardic and placed on 50% mask. The patient's hemoglobin on admission was 3.8 with an MCV of 65, white count of 8.9. INR was 3.81 down to 2.25. The patient has received 3 u nits of packed red blood cells and 2 units of FFP. His BUN was elevated at 50. His troponin T has g one from 0.2 to 0.54 and his BNP is 1157. The patient is having significant dyspnea and has difficul ty speaking due to his shortness of breath. Chest x-ray reveals worsening interstitial prominence co nsistent with congestive heart failure and worsening of aeration of the lung bases since his admissio n chest x-ray last evening. PAST MEDICAL HISTORY: Significant for oxygen-dependent COPD, on 4 L; atrial fibrillation; pulmonary embolism in 2017; coronary artery disease; hypertension; duodenal and gastric ulcers; prostate cance r, status post prostatectomy. MEDICATIONS: In the hospital currently include: 1. Albuterol. 2. Atrovent. 3. Singulair. 4. Pantoprazole 40 IV b.i.d. 5. Spiriva. ALLERGIES: To SIMVASTATIN. FAMILY HISTORY: Noncontributory. SOCIAL HISTORY: No tobacco or alcohol. REVIEW OF SYSTEMS: Review of systems is performed and is otherwise negative. PHYSICAL EXAM: Mr. Celis is a 72-year-old male, who is currently having significant shortness of breath and difficulty breathing. He is currently on 10 L. O2 saturation is 99%, temperature is 98.8, heart rate of 84, blood pressure 126/65. HEENT Exam: There is no scleral icterus. Heart: Irregula r rate and rhythm. Lungs have decreased breath sounds throughout. Abdomen is soft. There is no tend erness. Bowel sounds are present. There is no distention. Skin is pale and dry. Extremities are w ithout edema. Neuro Exam: Grossly intact. Alert and oriented x3. LABORATORY DATA: Pertinent laboratory studies as described above with a hemoglobin of 5.5, hematocri t of 18 after 3 units of packed red blood cells. INR of 2.25 after 2 units of FFP. Total bilirubin of 2.4. AST and ALT on admission of 465 and 560, now up to 2415 and 2203. Lactic acid was 6.5 on pr esentation, down to 1.9. Troponin T 0.2 up to 0.54. BNP of 1157. IMPRESSION: Mr. Celis is likely having recurrent upper gastrointestinal bleed secondary to the us e of Xarelto and aspirin. He is on omeprazole 20 mg twice a day at home. He does have a known histo ry of ulcer disease diagnosed back in December of 2016 when he presented with gastrointestinal bleed. [facility] February of 2017 revealed healing of his ulcers. The patient has not had any obviou s significant gastrointestinal bleeding. His numbers look microcytic and hypochromic suggesting he tenzin swain has been oozing for some time. RECOMMENDATIONS: I have switched the patient from pantoprazole 40 IV b.i.d. to pantoprazole drip 8 m g per hour. The patient is clearly not in any condition to undergo upper endoscopy at this time. Hi s respiratory status is very tenuous. His troponin T is going up. I would recommend both Pulmonary and Cardiology consults. Continue to transfuse. Correct INR. Once the patient has been stabilized, we will consider upper endoscopy if there is evidence of ongoing bleeding and we will place the patie nt on clear liquids as he clearly will not be ready for endoscopy today. Hopefully, the bleeding will slow or stop and will not need to intubate the patient for an endoscopy urgently. [id number]/[facility] #: [id number]
[2017-12-24] MEDS ORDERED: ALPRAZolam TAB* 0.25 MG PO ONE (12:00)
--- NOTE | 2017-12-24 12:01 | PN ---
Progress Note - Progress Note Date of Service: 12/24/17 Note: Progress Note - Critical Care 24 hour events: -recieved last PRBC this morning -BP stable overnight -has resp distress, on 10L, switching to hiflow -no cp; sob+. no n/v. no fevers. no bowel movements. -on PPI infusion -s/p 3 prbc, 3 ffp overnight Tele: Afib, rate controlled Vitals: Vital Signs Temp 98.8 F 12/24/17 07:44 Pulse 82 12/24/17 09:01 Resp 22 12/24/17 11:06 BP 131/72 12/24/17 09:00 Pulse Ox 98 12/24/17 09:01 Intake & Output 12/23/17 12/24/17 12/24/17 18:59 06:59 18:59 Intake Total 1420 Output Total 300 500 Balance 1120 -500 Weight 129 lb 10.109 oz 132 lb 15.02 oz Intake: IV Fluids 84 NS (0.9%) 84 Oral 0 Packed Cells 292 Fresh Frozen Plasma 1044 Output: Urine 300 500 O2/Vent: 10L oximask; now to hiflow Infusions: protonix 8mg/hr Current Medications: Albuterol (Ventolin 2.5 Mg/3 Ml Neb.Mariella*) 2.5 mg INH Q4H PRN PRN Reason: SOB/WHEEZING Last Admin: 12/24/17 05:49 Dose: 2.5 mg Alprazolam (Xanax Tab*) 0.25 mg PO ONCE ONE Stop: 12/24/17 12:01 Last Admin: 12/24/17 11:06 Dose: 0.25 mg Dextrose (D50w Syringe 50 Ml*) 25 gm IV PUSH ONCE PRN PRN Reason: FS < 60 Last Admin: 12/23/17 21:37 Dose: 25 gm Pantoprazole Sodium 80 mg/ (Sodium Chloride) 250 mls @ 25 mls/hr IVPB Q10H [facility] Last Admin: 12/24/17 11:21 Dose: 25 mls/hr Phytonadione 3 mg/ Sodium (Chloride) 50.3 mls @ 100 mls/hr IV ONCE ONE Stop: 12/24/17 12:26 Ipratropium [place] (Atrovent 0.5 Mg Neb.Mariella*) 0.5 mg INH Q4H PRN PRN Reason: SOB/WHEEZING Last Admin: 12/24/17 05:49 Dose: 0.5 mg Methylprednisolone Sodium Succinate (Solu-Medrol 40 Mg) 40 mg IV Q12H [facility] Last Admin: 12/24/17 10:16 Dose: 40 mg Montelukast Sodium (Singulair Tab*) 10 mg PO DAILY [facility] Last Admin: 12/24/17 08:41 Dose: 10 mg Tiotropium [place] (Spiriva Cap.Inh*) 1 cap INH DAILY [facility] Last Admin: 12/24/17 10:00 Dose: 1 cap.inh Physical Exam: General: awake, alert, mild resp distress intermittently, no diaphoresis Head: normocephalic, atraumatic HEENT: ++pallor, no icterus, dry mucous membranes Neck: soft, supple, no jvd, no stridor CVS: normal rate, irregular, no murmur Resp: bilateral air entry but diminshed, mild rhales at bases+, no wheeze, no rhonchi, no acc muscle use Abdomen: soft, nontender, nondistended, bowel sounds present Ext: pulses+, cool, 2+ bilateral LE edema with chronic skin changes Skin: intact Neuro: awake, alert, orientedx3, moving all extremities, no gross focal deficit Labs: Laboratory Results - last 24 hr 12/23/17 12/23/17 12/23/17 14:53 14:53 14:53 WBC RBC Hgb Hct MCV MCH MCHC RDW Plt Count MPV Neut % (Auto) Lymph % (Auto) [place] % (Auto) Eos % (Auto) Baso % (Auto) Absolute Neuts (auto) Absolute Lymphs (auto) Absolute Monos (auto) Absolute Eos (auto) Absolute Basos (auto) Absolute Nucleated RBC Nucleated RBC % Hypochromasia Target Cells Elliptocytes Hem Pathologist Commnt INR (Anticoag Therapy) 3.81 H APTT Sodium 138 L Potassium 6.5 H* Chloride 101 Carbon Dioxide 21 L Anion Gap 16 H BUN 47 H Creatinine 1.34 H Est GFR ( Amer) 67.6 Est GFR (Non-Af Amer) 52.5 BUN/Creatinine Ratio 35.1 H Glucose 118 H Lactic Acid Calcium 8.8 Total Bilirubin 0.80 AST 465 H ALT 560 H Alkaline Phosphatase 49 Troponin I 0.20 H* C-Reactive Protein 14.70 H B-Natriuretic Peptide 1157 H Total Protein 6.0 L Albumin 4.0 Globulin 2.0 Albumin/Globulin Ratio 2.0 Blood Type Antibody Screen Crossmatch 12/23/17 12/23/17 12/23/17 14:53 14:53 14:53 WBC 8.9 RBC 2.05 L Hgb 3.8 L* Hct 13 L MCV 65 L MCH 19 L MCHC 29 L RDW 20 H Plt Count 289 MPV 8.7 Neut % (Auto) 88.6 H Lymph % (Auto) 0.7 L [place] % (Auto) 10.6 H Eos % (Auto) 0 Baso % (Auto) 0.1 Absolute Neuts (auto) 7.8 H Absolute Lymphs (auto) 0.1 L Absolute Monos (auto) 0.9 H Absolute Eos (auto) 0 Absolute Basos (auto) 0 Absolute Nucleated RBC 0.2 Nucleated RBC % 2.2 Hypochromasia 3+ Target Cells 1+ Elliptocytes 1+ Hem Pathologist Commnt INR (Anticoag Therapy) APTT Sodium Potassium Chloride Carbon Dioxide Anion Gap BUN Creatinine Est GFR ( Amer) Est GFR (Non-Af Amer) BUN/Creatinine Ratio Glucose Lactic Acid 6.5 H* Calcium Total Bilirubin AST ALT Alkaline Phosphatase Troponin I C-Reactive Protein B-Natriuretic Peptide Total Protein Albumin Globulin Albumin/Globulin Ratio Blood Type A Positive Antibody Screen Negative Crossmatch See Detail 12/24/17 12/24/17 12/24/17 00:10 00:10 00:10 WBC RBC Hgb Hct MCV MCH MCHC RDW Plt Count MPV Neut % (Auto) Lymph % (Auto) [place] % (Auto) Eos % (Auto) Baso % (Auto) Absolute Neuts (auto) Absolute Lymphs (auto) Absolute Monos (auto) Absolute Eos (auto) Absolute Basos (auto) Absolute Nucleated RBC Nucleated RBC % Hypochromasia Target Cells Elliptocytes Hem Pathologist Commnt INR (Anticoag Therapy) 3.39 H APTT Sodium 138 L Potassium 5.4 H Chloride 103 Carbon Dioxide 24 Anion Gap 11 BUN 52 H Creatinine 1.37 H Est GFR ( Amer) 65.9 Est GFR (Non-Af Amer) 51.2 BUN/Creatinine Ratio 38.0 H Glucose 124 H Lactic Acid 1.9 Calcium 9.2 Total Bilirubin AST ALT Alkaline Phosphatase Troponin I 0.54 H* C-Reactive Protein B-Natriuretic Peptide Total Protein Albumin Globulin Albumin/Globulin Ratio Blood Type Antibody Screen Crossmatch 12/24/17 12/24/17 12/24/17 05:55 05:55 05:55 WBC 11.0 H RBC 2.52 L Hgb 5.5 L* Hct 18 L MCV 70 L MCH 22 L MCHC 31 RDW 23 H Plt Count 165 MPV 8.8 Neut % (Auto) Lymph % (Auto) [place] % (Auto) Eos % (Auto) Baso % (Auto) Absolute Neuts (auto) Absolute Lymphs (auto) Absolute Monos (auto) Absolute Eos (auto) Absolute Basos (auto) Absolute Nucleated RBC Nucleated RBC % Hypochromasia Target Cells Elliptocytes Hem Pathologist Commnt INR (Anticoag Therapy) 2.25 H APTT 25.3 L Sodium 140 Potassium 5.0 Chloride 104 Carbon Dioxide 28 Anion Gap 8 BUN 50 H Creatinine 1.14 Est GFR ( Amer) 81.4 Est GFR (Non-Af Amer) 63.3 BUN/Creatinine Ratio 43.9 H Glucose 121 H Lactic Acid Calcium 9.3 Total Bilirubin 2.40 H D AST 2415 H ALT 2203 H Alkaline Phosphatase 64 Troponin I C-Reactive Protein B-Natriuretic Peptide Total Protein 6.1 L Albumin 4.1 Globulin 2.0 Albumin/Globulin Ratio 2.1 Blood Type Antibody Screen Crossmatch Imaging: cxr 12/23 hyperinflated lungs, mild interstitial changes as prior cxr, left basal atelectasis +/- infiltrate similar as prior EKG 12/23 nsr, V5-V6 mild ST depressions+ cxr 12/24 - bibasilar infiltrates, mild interstitial congestion+ Assessment: 72y M pmhx of COPD on home O2 4L, Afib, h/o PE 2017 on Xarelto, CAD , HLD, HTN, CHF, h/o GI hemorrhage 12/2016, Prostate Ca s/p prostatectomy. Patient reports increasing shortness of breath for days now, requiring increased NC to 8L at home. Difficulty performing tasks. Reports no chest pain. No cough/sputum production/sick contacts/fever/chills. No increased LE swelling , but improving compared to prior. He denies dark stools or bleeding from stools , denies vomiting at all. Brought to ER, was tachycardic, BP 100-110s systolic, tachypneic mild, placed on 50% VM and more with improved sats, afebrile. CXR unchanged as prior. Labs demonstrating coagulopathy, acute blood loss anemic with hg 3.8, elevated Creatinine and LFTs. -Acute Blood loss anemia -acute on chronic hypoxic respiratory failure -pulmonary congestion -LOLY -Shock Liver -Coagulopathy 2/2 to shock liver/hypoperfusion/anemia -metabolic acidosis Plan: Neuro- stable. anxiety likely from resp distress also. prn xanax, pt doesnt like morphine. CVS- BP stable. s/p 3 PRBC. pending repeat h/h. Still coagulopathic, given Vit K and FFP x3 again. already s/p 3 ffp. No bowel movements noted. last hg 5.5. Holding AC. Lasix 20mg iv x1 now, will diurese with transfusions. No Xarelto. Resp- Hypoxic, on 10L, now switching to hiflow. awake/alert, mild distress but no sig acc muscle use, not req NIV at this time. No sig wheeze heard. Will trial BID solumedrol for 24 hours. Bronchodilators q4h. Lasix IV. CXR with basil infiltrates, could be worsening congestion; afebrile. ID- afebrile. wbc 11. CXR some bibasilar infitlrates + congestion. holding abx for now. GI- No dark stools or vomitting. send fobt when able. PPI infusion. Clear liquid as per GI. Plan for EGD once resp status stable. h/o gastric/duod ulcers 2017. LFTs elevated, shock liver, coagulopathy+. Vit K and FFP repeat. Renal- LOLY, likely from hypoperfusion/anemia. Cr down, making some urine. IVF as needed. Hyperkalemia improved. Julian as needed. Heme- acute blood loss anemia. coagulopathy 2/2 to Xarelto and shock liver. s/p FFP x3 and PRBC x3. Repeat FFP, Vit K and PRBC to maintain INR <2 and hg >7. Endo- fingersticks as needed Musculsk- bedrest Wounds- none Nutrition- clear liquid? DVT prophylaxis: SCDs GI prophylaxis: PPI IV Central Line: no Arterial Line: no Julian Cathetor: no Disposition: ICU Code Status: full code Total Critical Care time is 45 minutes, excluding procedures/teaching Jose Spear MD Manufacturer (Electronically Signed)
[2017-12-24 12:20] LABS: Hematocrit 21 % (42-52); Hemoglobin 6.6 g/dl (14.0-18.0)
[2017-12-24] MEDS ORDERED: Phytonadione INJ (Adult)* 3 MG in NS 0.9% 50 ML* 50 ML IV ONE (12:30)
[2017-12-24] MEDS ORDERED: Morphine INJ* 2 MG/ML 1 ML CARPUJECT IV PRN (16:08)
[2017-12-24] MEDS: Morphine VIAL* 4 MG/ML VIAL (1 ml vial) IV PRN (20:52)
[2017-12-25] MEDS: Morphine VIAL* 4 MG/ML VIAL (1 ml vial) IV PRN ×3 (04:59→23:45)
[2017-12-25 05:41] LABS: Hematocrit 26 % (42-52); Hemoglobin 8.3 g/dl (14.0-18.0); Mean Corpuscular HGB Conc 33 g/dl (31-36); Mean Corpuscular Hemoglobin 24 pg (27-31); Mean Corpuscular Volume 74 fL (80-94); Mean Platelet Volume 8.9 um3 (7.4-10.4); Platelet Count 74 10^3/ul (150-450); Red Blood Count 3.45 10^6/ul (4.0-5.4); Red Cell Distribution Width 21 % (10.5-15); White Blood Count 5.8 10^3/ul (3.5-10.8)
[2017-12-25 05:47] LABS: INR 1.54 (0.77-1.02)
[2017-12-25 05:50] LABS: EGFR Non-African American 85.4 (>60)
[2017-12-25] MEDS: Tiotropium CAP.INH* CAP.INH/18 MCG (USE ORDER SET !) INH SCH (07:36)
[2017-12-25] MEDS: Pantoprazole IV* 80 MG in NS 0.9% 250 ML* 250 ML IVPB SCH ×2 (07:57→18:35)
--- NOTE | 2017-12-25 08:16 | RAD ---
INDICATION: Hypoxia COMPARISON: December 24, 2017 TECHNIQUE: An AP portable view obtained at 0500 hours is submitted. FINDINGS: Bones/Soft Tissues: There are no acute bony findings. Cardiomediastinal: The cardiomediastinal silhouette is normal. Lungs: There are bibasal infiltrates with mild progression of alveolar change in the right. Suspected interstitial congestion through post on chronic change. Pleura: Small bilateral pleural effusions. Other: None IMPRESSION: SUSPECT MILD VASCULAR CONGESTION. WORSENING ALVEOLAR CHANGE IN LEFT LUNG BASE.
[2017-12-25] MEDS: Montelukast Sodium TAB* 10 MG PO SCH (08:19)
[2017-12-25] MEDS ORDERED: Vancomycin per Pharmacy* NOTE FOLLOW UP PRN (08:47)
[2017-12-25] MEDS ORDERED: Piperacillin/Tazobac ADVAN(*) 3.375 GM in NS 0.9% 100 ML* 100 ML IVPB SCH (09:00)
[2017-12-25] MEDS: Piperacillin/Tazobactam 13.5 GM IV 24 hour continuous infusion IVPB SCH ×2 (09:38)
--- NOTE | 2017-12-25 09:45 | PN ---
Progress Note - Progress Note Date of Service: 12/25/17 Note: Progress Note - Critical Care 24 hour events: -s/p 1 prbc and 2 ffp yesterday -did not tolerate hiflow, on NIV overnight and did better -this morning off NIV on NC and feels much better -s/p lasix 20mg and 40mg yesterday, made urine -afebrile, minimal sputum but has wet cough, swallow sputum; no wheezing -no abd pain, no n/v/cp. no diarrhea -awake, alert, answering questions and calm appearing. less anxious. Tele: Afib, rate controlled Vitals: Vital Signs Temp 98.5 F 12/25/17 08:00 Pulse 78 12/25/17 08:30 Resp 15 12/25/17 08:30 BP 162/82 12/25/17 08:01 Pulse Ox 93 12/25/17 08:30 Intake & Output 12/24/17 12/25/17 12/25/17 18:59 06:59 18:59 Intake Total 1044 680 Output Total 600 1050 300 Balance 444 -370 -300 Weight 138 lb 10.732 oz Intake: IVPB 26 NS (0.9%) 26 Medicated IV 79 355 GEN - Pantoprazole/ 79 355 Protonix Oral 100 Packed Cells 320 199 Fresh Frozen Plasma 645 Output: Urine 600 1050 300 O2/Vent: 10L oximask Infusions: protonix 8mg/hr Current Medications: Albuterol (Ventolin 2.5 Mg/3 Ml Neb.Mariella*) 2.5 mg INH Q4H PRN PRN Reason: SOB/WHEEZING Last Admin: 12/24/17 15:20 Dose: 2.5 mg Dextrose (D50w Syringe 50 Ml*) 25 gm IV PUSH ONCE PRN PRN Reason: FS < 60 Last Admin: 12/23/17 21:37 Dose: 25 gm Pantoprazole Sodium 80 mg/ (Sodium Chloride) 250 mls @ 25 mls/hr IVPB Q10H [facility] Last Admin: 12/25/17 07:57 Dose: 25 mls/hr Vancomycin HCl 1,000 mg/ (Sodium Chloride) 250 mls @ 166.667 mls/hr IVPB Q12H [facility] Piperacillin Sod/Tazobactam (Sod 13.5 gm/ Sodium Chloride) 500 mls @ 20.833 mls /hr IVPB Q24H [facility] Last Admin: 12/25/17 09:38 Dose: 20.833 mls/hr Vancomycin HCl 1,250 mg/ (Sodium Chloride) 250 mls @ 166.667 mls/hr IVPB ONCE ONE Stop: 12/25/17 11:29 Ipratropium [place] (Atrovent 0.5 Mg Neb.Mariella*) 0.5 mg INH Q4H PRN PRN Reason: SOB/WHEEZING Last Admin: 12/24/17 15:20 Dose: 0.5 mg Methylprednisolone Sodium Succinate (Solu-Medrol 40 Mg) 40 mg IV Q12H [facility] Last Admin: 12/24/17 23:31 Dose: 40 mg Montelukast Sodium (Singulair Tab*) 10 mg PO DAILY [facility] Last Admin: 12/25/17 08:19 Dose: 10 mg Morphine Sulfate (Morphine Vial*) 2 mg IV Q6HR PRN PRN Reason: respiratory distress Last Admin: 12/25/17 04:59 Dose: 2 mg Pharmacy Consult (Vancomycin Per Pharmacy*) 1 note FOLLOW UP . PRN PRN Reason: PER PROTOCOL Tiotropium [place] (Spiriva Cap.Inh*) 1 cap INH DAILY [facility] Last Admin: 12/25/17 07:36 Dose: 1 cap.inh Physical Exam: General: awake, alert, no resp distress, no diaphoresis Head: normocephalic, atraumatic HEENT: ++pallor, no icterus, moist mucous membranes Neck: soft, supple, no jvd, no stridor CVS: normal rate, irregular, no murmur Resp: bilateral air entry but diminshed, mild rhales at bases+, no wheeze, no rhonchi, no acc muscle use Abdomen: soft, nontender, nondistended, bowel sounds present Ext: pulses+, cool, 2+ bilateral LE edema with chronic skin changes Skin: intact Neuro: awake, alert, orientedx3, moving all extremities, no gross focal deficit Labs: Laboratory Results - last 24 hr 12/23/17 12/24/17 12/24/17 14:53 12:00 14:45 WBC RBC Hgb 6.6 L Hct 21 L MCV MCH MCHC RDW Plt Count MPV INR (Anticoag Therapy) APTT Patient Temperature Not Reportable ABG pH 7.31 L ABG pH (Temp Correct) Not Reportable ABG pCO2 58 H ABG pCO2 (Temp Corrct Not Reportable ABG pO2 68 L ABG pO2 (Temp Correct Not Reportable ABG HCO3 26.9 ABG O2 Saturation 95.8 ABG Base Excess 2.5 H Respiration Rate Not Reportable O2 Delivery Device vapo Ventilator Type Not Reportable Vent Mode 85 FiO2 40 Inspiratory Time Not Reportable PEEP Not Reportable Pressure Support Not Reportable Pressure Control Not Reportable EPAP Not Reportable IPAP Not Reportable BiPAP Not Reportable Sodium Potassium Chloride Carbon Dioxide Anion Gap BUN Creatinine Est GFR ( Amer) Est GFR (Non-Af Amer) BUN/Creatinine Ratio Glucose Calcium Total Bilirubin AST ALT Alkaline Phosphatase Total Protein Albumin Globulin Albumin/Globulin Ratio Blood Type A Positive Antibody Screen Negative Crossmatch See Detail 12/25/17 12/25/17 12/25/17 05:20 05:20 05:20 WBC 5.8 RBC 3.45 L Hgb 8.3 L Hct 26 L MCV 74 L MCH 24 L MCHC 33 RDW 21 H Plt Count 74 L D MPV 8.9 INR (Anticoag Therapy) 1.54 H APTT 29.0 Patient Temperature ABG pH ABG pH (Temp Correct) ABG pCO2 ABG pCO2 (Temp Corrct ABG pO2 ABG pO2 (Temp Correct ABG HCO3 ABG O2 Saturation ABG Base Excess Respiration Rate O2 Delivery Device Ventilator Type Vent Mode FiO2 Inspiratory Time PEEP Pressure Support Pressure Control EPAP IPAP BiPAP Sodium 143 Potassium 4.3 Chloride 104 Carbon Dioxide 28 Anion Gap 11 BUN 49 H Creatinine 0.88 Est GFR ( Amer) 109.8 Est GFR (Non-Af Amer) 85.4 BUN/Creatinine Ratio 55.7 H Glucose 123 H Calcium 8.9 Total Bilirubin 2.70 H AST 996 H ALT 1835 H Alkaline Phosphatase 74 Total Protein 6.4 Albumin 4.1 Globulin 2.3 Albumin/Globulin Ratio 1.8 Blood Type Antibody Screen Crossmatch Imaging: cxr 12/23 hyperinflated lungs, mild interstitial changes as prior cxr, left basal atelectasis +/- infiltrate similar as prior EKG 12/23 nsr, V5-V6 mild ST depressions+ cxr 12/24 - bibasilar infiltrates, mild interstitial congestion+ cxr 12/25 - increase bibasilar infiltrates, no sig congestion noted now Assessment: 72y M pmhx of COPD on home O2 4L, Afib, h/o PE 2017 on Xarelto, CAD , HLD, HTN, CHF, h/o GI hemorrhage 12/2016, Prostate Ca s/p prostatectomy. Patient reports increasing shortness of breath for days now, requiring increased NC to 8L at home. Difficulty performing tasks. Reports no chest pain. No cough/sputum production/sick contacts/fever/chills. No increased LE swelling , but improving compared to prior. He denies dark stools or bleeding from stools , denies vomiting at all. Brought to ER, was tachycardic, BP 100-110s systolic, tachypneic mild, placed on 50% VM and more with improved sats, afebrile. CXR unchanged as prior. Labs demonstrating coagulopathy, acute blood loss anemic with hg 3.8, elevated Creatinine and LFTs. -Acute Blood loss anemia -acute on chronic hypoxic respiratory failure -pulmonary congestion -LOLY -Shock Liver -Coagulopathy 2/2 to shock liver/hypoperfusion/anemia -suspect bibasilar infiltrates, possible pneumonia? Plan: Neuro- stable. anxiety better. prn xanax as needed. CVS- BP stable. Afib rate controlled. s/p PRBC, hg 8s now. check q12. INR 1.5. No bleeding noted as of yet. Holding AC/Xarelto. Lasix as needed if more product to be transfused. Resp- Hypoxic, on 10L, but resp distress better this morning. off NIV. CXR with basilar infiltrates. Afebrile though, some sputum. Send sputum culture if able. will empirically treat for aspiration vs HCAP given resp distress issues for 24- 48 hours. Wheezing better, cont steroids for 48 hours, dec to daily starting tomorrow. Bronchodilators q4h. ID- afebrile. wbc 6. CXR some bibasilar infitlrates + congestion. Given increasing resp distress, not sure if diuretics helped. Will trial 48 hours abx for suspected aspiration pneumonitis? now on steroids for wheezing. GI- No bleeding noted yet. PPI infusion. Clear liquid as per GI. EGD as per GI. h/o gastric/duod ulcers 2017. Shock liver improving, LFTs downtrend, coagulopathy better. s/p Vit K 5mg IV x1 yesterday. Renal- LOLY, likely from hypoperfusion/anemia. Cr down, making some urine. IVF as needed. K okay. Julian as needed. Heme- acute blood loss anemia. coagulopathy 2/2 to Xarelto and shock liver. s/p prbc x1 and ffp x2. INR 1.5. Hg 8.3. No further transfusion indicated now. Endo- fingersticks as needed Musculsk- oob to chair today Wounds- none Nutrition- clear liquid DVT prophylaxis: SCDs GI prophylaxis: PPI IV Central Line: no Arterial Line: no Julian Cathetor: no Disposition: ICU Code Status: full code Total Critical Care time is 35 minutes, excluding procedures/teaching Jose Spear MD Oil Tester (Electronically Signed)
[2017-12-25] MEDS ORDERED: Vancomycin(*) 1,250 MG IV x ONCE IVPB ONE ×2 (10:00)
[2017-12-25] MEDS: amLODIPine TAB* 5 MG PO SCH (10:34)
[2017-12-25] MEDS: Citalopram TAB* 10 MG PO SCH (10:34)
[2017-12-25] MEDS: methylPREDNISolone SOD 40 MG* 1 ML VIAL IV SCH ×2 (10:34→22:03)
[2017-12-25] MEDS ORDERED: Acetaminophen TAB* 325 MG PO PRN (13:37)
[2017-12-25 18:42] LABS: Hematocrit 23 % (42-52); Hemoglobin 7.6 g/dl (14.0-18.0)
[2017-12-25] MEDS: Vancomycin(*) 1,000 MG in NS 0.9% 250 ML* 250 ML IVPB SCH (22:03)
--- NOTE | 2017-12-25 22:20 | PN ---
CC: GASTROENTEROLOGY PROGRESS NOTE: DATE OF VISIT: 12/25/17 HISTORY: Mr. Celis has received a total of 4 units of packed red blood cells and 5 units of FFP. His current hematocrit has improved significantly from 13 on admission to 26 with an MCV of 74. His INR has been correct and currently is at 1.5. The patient has had no signs of further bleeding. Hi s vital signs have been stable. He is in atrial fibrillation with a heart rate in the low 80s. He r emains on IV pantoprazole drip. His O2 sat is 93% on nasal cannula. He remains afebrile. Chest x-ra y reveals possible pneumonia. He has markedly abnormal liver function test secondary likely to hypop erfusion and are improving from an AST and ALT yesterday of 2415 and 2203 to today of 996 and 1835. At this point, I would not recommend endoscopy given the patient's ongoing breathing issues and the a bsence of obvious continued bleeding. The patient is on clear liquids. The patient has been discuss ed with Dr. Keven Julio, who is compensation consultant for the weekend. [id number]/[facility] #: [id number]
[2017-12-26] MEDS: Albuterol 2.5 MG/3 ML NEB.SOL* (0.083%) INH PRN ×2 (02:36→19:59)
[2017-12-26] MEDS ORDERED: Furosemide IV* 10 MG/ML 10 ML VIAL (100 MG) IV ONE (02:50)
[2017-12-26] MEDS: Pantoprazole IV* 80 MG in NS 0.9% 250 ML* 250 ML IVPB SCH ×2 (04:10→13:31)
[2017-12-26] MEDS: Morphine VIAL* 4 MG/ML VIAL (1 ml vial) IV PRN ×3 (05:28→22:53)
[2017-12-26 05:53] LABS: EGFR Non-African American 105.9 (>60); INR 1.41 (0.77-1.02)
[2017-12-26 06:24] LABS: Hematocrit 26 % (42-52); Hemoglobin 8.3 g/dl (14.0-18.0); Mean Corpuscular HGB Conc 32 g/dl (31-36); Mean Corpuscular Hemoglobin 24 pg (27-31); Mean Corpuscular Volume 75 fL (80-94); Mean Platelet Volume 9.5 um3 (7.4-10.4); Platelet Count 51 10^3/ul (150-450); Red Blood Count 3.45 10^6/ul (4.0-5.4); Red Cell Distribution Width 23 % (10.5-15); White Blood Count 4.8 10^3/ul (3.5-10.8)
[2017-12-26] MEDS: Citalopram TAB* 10 MG PO SCH (07:38)
[2017-12-26] MEDS: amLODIPine TAB* 5 MG PO SCH (07:38)
[2017-12-26] MEDS: Montelukast Sodium TAB* 10 MG PO SCH (07:38)
[2017-12-26] MEDS: methylPREDNISolone SOD 40 MG* 1 ML VIAL IV SCH (07:39)
[2017-12-26] MEDS: Piperacillin/Tazobactam 13.5 GM IV 24 hour continuous infusion IVPB SCH ×2 (07:41)
[2017-12-26] MEDS: Tiotropium CAP.INH* CAP.INH/18 MCG (USE ORDER SET !) INH SCH (09:20)
[2017-12-26] MEDS: Vancomycin(*) 1,000 MG in NS 0.9% 250 ML* 250 ML IVPB SCH ×2 (10:06→21:27)
--- NOTE | 2017-12-26 12:24 | PN ---
Progress Note - Progress Note Date of Service: 12/26/17 Note: Progress Note - Critical Care 24 hour events: -on NC, resp distress improved wtih lasix and steroids/bronchodilators now -decreasing fio2, on 10 L now -no cough, no sputum -no bowel movement yet -no abd pain/n/v Tele: Afib, rate controlled Vitals: Vital Signs Temp 98.3 F 12/26/17 11:17 Pulse 86 12/26/17 12:01 Resp 15 12/26/17 12:01 BP 139/83 12/26/17 12:00 Pulse Ox 89 12/26/17 12:01 Intake & Output 12/25/17 12/26/17 12/26/17 18:59 06:59 18:59 Intake Total 1801 1701 Output Total 600 1800 200 Balance 1201 -99 -200 Weight 138 lb 7.205 oz Intake: IV Fluids 388 710 ABX - VANCOMYCIN 285 256 ABX - ZOSYN 103 314 NS (0.9%) 140 Medicated IV 213 391 GEN - Pantoprazole/ 213 391 Protonix Oral 1200 600 Output: Urine 600 1800 200 O2/Vent: 10L NC -> 6-7L now Infusions: protonix 8mg/hr Current Medications: Acetaminophen (Tylenol Tab*) 650 mg PO Q6H PRN PRN Reason: HEADACHE/PAIN Last Admin: 12/25/17 14:07 Dose: 650 mg Albuterol (Ventolin 2.5 Mg/3 Ml Neb.Mariella*) 2.5 mg INH Q4H PRN PRN Reason: SOB/WHEEZING Last Admin: 12/26/17 02:36 Dose: 2.5 mg Amlodipine Besylate (Norvasc Tab*) 10 mg PO DAILY [facility] Last Admin: 12/26/17 07:38 Dose: 10 mg Citalopram Hydrobromide (Celexa Tab*) 10 mg PO DAILY [facility] Last Admin: 12/26/17 07:38 Dose: 10 mg Dextrose (D50w Syringe 50 Ml*) 25 gm IV PUSH ONCE PRN PRN Reason: FS < 60 Last Admin: 12/23/17 21:37 Dose: 25 gm Heparin Sodium (Porcine) (Heparin Flush Picc/Ml/Cvc(*)) 1 - 3 ml FLUSH 0600, 1800 [facility] PRN Reason: Protocol Last Admin: 12/26/17 07:31 Dose: Not Given Pantoprazole Sodium 80 mg/ (Sodium Chloride) 250 mls @ 25 mls/hr IVPB Q10H [facility] Last Admin: 12/26/17 04:10 Dose: 25 mls/hr Vancomycin HCl 1,000 mg/ (Sodium Chloride) 250 mls @ 166.667 mls/hr IVPB Q12H [facility] Last Admin: 12/26/17 10:06 Dose: 166.667 mls/hr Piperacillin Sod/Tazobactam (Sod 13.5 gm/ Sodium Chloride) 500 mls @ 20.833 mls /hr IVPB Q24H [facility] Last Admin: 12/26/17 07:41 Dose: 20.833 mls/hr Ipratropium [place] (Atrovent 0.5 Mg Neb.Mariella*) 0.5 mg INH Q4H PRN PRN Reason: SOB/WHEEZING Last Admin: 12/24/17 15:20 Dose: 0.5 mg Methylprednisolone Sodium Succinate (Solu-Medrol 40 Mg) 40 mg IV DAILY [facility] Stop: 12/28/17 09:01 Last Admin: 12/26/17 07:39 Dose: 40 mg Montelukast Sodium (Singulair Tab*) 10 mg PO DAILY [facility] Last Admin: 12/26/17 07:38 Dose: 10 mg Morphine Sulfate (Morphine Vial*) 2 mg IV Q6HR PRN PRN Reason: respiratory distress Last Admin: 12/26/17 05:28 Dose: 2 mg Pharmacy Consult (Vancomycin Per Pharmacy*) 1 note FOLLOW UP . PRN PRN Reason: PER PROTOCOL Pharmacy Profile Note (Vancomycin Trough Check) 1 note FOLLOW UP 09 ONE Stop: 12/27/17 09:31 Tiotropium [place] (Spiriva Cap.Inh*) 1 cap INH DAILY [facility] Last Admin: 12/26/17 09:20 Dose: 1 cap.inh Physical Exam: General: awake, alert, no resp distress, no diaphoresis Head: normocephalic, atraumatic HEENT: +pallor, no icterus, moist mucous membranes Neck: soft, supple, no jvd, no stridor CVS: normal rate, irregular, no murmur Resp: bilateral air entry but diminshed, mild rhales at bases+, no wheeze, no rhonchi, no acc muscle use Abdomen: soft, nontender, nondistended, bowel sounds present Ext: pulses+, cool, 2+ bilateral LE edema with chronic skin changes Skin: intact Neuro: awake, alert, orientedx3, moving all extremities, no gross focal deficit Labs: Laboratory Results - last 24 hr 12/25/17 12/26/17 12/26/17 18:15 05:21 05:21 WBC 4.8 RBC 3.45 L Hgb 7.6 L 8.3 L Hct 23 L 26 L MCV 75 L MCH 24 L MCHC 32 RDW 23 H Plt Count 51 L MPV 9.5 INR (Anticoag Therapy) Sodium 145 Potassium 3.5 Chloride 106 Carbon Dioxide 34 H Anion Gap 5 BUN 41 H Creatinine 0.73 Est GFR ( Amer) 136.2 Est GFR (Non-Af Amer) 105.9 BUN/Creatinine Ratio 56.2 H Glucose 171 H Calcium 8.6 Total Bilirubin 1.90 H AST 310 H ALT 1400 H Alkaline Phosphatase 64 Troponin I 0.20 H* Total Protein 5.9 L Albumin 3.7 Globulin 2.2 Albumin/Globulin Ratio 1.7 12/26/17 05:21 WBC RBC Hgb Hct MCV MCH MCHC RDW Plt Count MPV INR (Anticoag Therapy) 1.41 H Sodium Potassium Chloride Carbon Dioxide Anion Gap BUN Creatinine Est GFR ( Amer) Est GFR (Non-Af Amer) BUN/Creatinine Ratio Glucose Calcium Total Bilirubin AST ALT Alkaline Phosphatase Troponin I Total Protein Albumin Globulin Albumin/Globulin Ratio Imaging: cxr 12/23 hyperinflated lungs, mild interstitial changes as prior cxr, left basal atelectasis +/- infiltrate similar as prior EKG 12/23 nsr, V5-V6 mild ST depressions+ cxr 12/24 - bibasilar infiltrates, mild interstitial congestion+ cxr 12/25 - increase bibasilar infiltrates, no sig congestion noted now Assessment: 72y M pmhx of COPD on home O2 4L, Afib, h/o PE 2017 on Xarelto, CAD , HLD, HTN, CHF, h/o GI hemorrhage 12/2016, Prostate Ca s/p prostatectomy. Patient reports increasing shortness of breath for days now, requiring increased NC to 8L at home. Difficulty performing tasks. Reports no chest pain. No cough/sputum production/sick contacts/fever/chills. No increased LE swelling , but improving compared to prior. He denies dark stools or bleeding from stools , denies vomiting at all. Brought to ER, was tachycardic, BP 100-110s systolic, tachypneic mild, placed on 50% VM and more with improved sats, afebrile. CXR unchanged as prior. Labs demonstrating coagulopathy, acute blood loss anemic with hg 3.8, elevated Creatinine and LFTs. -Acute Blood loss anemia -acute on chronic hypoxic respiratory failure -pulmonary congestion -LOLY -Shock Liver -Coagulopathy 2/2 to shock liver/hypoperfusion/anemia -suspect bibasilar infiltrates, possible pneumonia? Plan: Neuro- stable. anxiety better. prn xanax as needed. CVS- BP stable. Afib rate controlled. h/h stable 8s. No bleeding noted as of yet. Holding AC/Xarelto. Lasix as needed. Resp- Hypoxic, but dec fio2 requirements. keep sat 90-92%. Baseline 4-5L at home. CXR with basilar infiltrates. afebrile, no cough/sputum now. IV abx trial for 48 hours. Wean steroids, IV dialy for 3 days. Bronchodilators q4h. ID- afebrile. wbc normal. CXR some bibasilar infitlrates + congestion. Trial 48 hours IV abx. on IV steroids. GI- No bleeding noted yet. PPI infusion. Clear liquid/soft mechanical diet. Plan for EGD tomorrow. FOBT sent this morning. h/o gastric/duod ulcers 2017. Shock liver improving, LFTs downtrend, coagulopathy better Renal- LOLY, likely from hypoperfusion/anemia. Cr down, making some urine. IVF as needed. K okay. Julian as needed. Heme- acute blood loss anemia. coagulopathy 2/2 to Xarelto and shock liver. h/h 8s now, INR 1.4. No further transfusion indicated, monitoring. Endo- fingersticks as needed Musculsk- oob to chair Wounds- none Nutrition- soft mech diet. DVT prophylaxis: SCDs GI prophylaxis: PPI IV Central Line: no Arterial Line: no Julian Cathetor: no Disposition: ICU Code Status: full code Total Critical Care time is 35 minutes, excluding procedures/teaching Jose Spear MD [employer] (Electronically Signed)
[2017-12-26] MEDS: guaiFENesin ER TAB 600 MG PO PRN (13:31)
[2017-12-27] MEDS: Pantoprazole IV* 80 MG in NS 0.9% 250 ML* 250 ML IVPB SCH ×2 (00:27→10:49)
[2017-12-27] MEDS: Albuterol 2.5 MG/3 ML NEB.SOL* (0.083%) INH PRN ×2 (03:03→22:20)
[2017-12-27] MEDS: guaiFENesin ER TAB 600 MG PO PRN ×3 (03:10→19:35)
[2017-12-27] MEDS: Morphine VIAL* 4 MG/ML VIAL (1 ml vial) IV PRN ×3 (05:59→19:30)
[2017-12-27 06:39] LABS: INR 1.31 (0.77-1.02)
[2017-12-27 06:45] LABS: EGFR Non-African American 135.4 (>60)
[2017-12-27 07:06] LABS: Hematocrit 26 % (42-52); Hemoglobin 8.3 g/dl (14.0-18.0); Mean Corpuscular HGB Conc 32 g/dl (31-36); Mean Corpuscular Hemoglobin 24 pg (27-31); Mean Corpuscular Volume 75 fL (80-94); Mean Platelet Volume 9.7 um3 (7.4-10.4); Platelet Count 43 10^3/ul (150-450); Red Blood Count 3.44 10^6/ul (4.0-5.4); Red Cell Distribution Width 23 % (10.5-15); White Blood Count 5.4 10^3/ul (3.5-10.8)
[2017-12-27] MEDS: Citalopram TAB* 10 MG PO SCH (08:52)
[2017-12-27] MEDS: methylPREDNISolone SOD 40 MG* 1 ML VIAL IV SCH (08:52)
[2017-12-27] MEDS: Piperacillin/Tazobactam 13.5 GM IV 24 hour continuous infusion IVPB SCH ×2 (08:52)
[2017-12-27] MEDS: Montelukast Sodium TAB* 10 MG PO SCH (08:53)
[2017-12-27] MEDS: amLODIPine TAB* 5 MG PO SCH (08:53)
[2017-12-27] MEDS ORDERED: Vancomycin Trough Check NOTE FOLLOW UP ONE (09:30)
[2017-12-27] MEDS: Tiotropium CAP.INH* CAP.INH/18 MCG (USE ORDER SET !) INH SCH (09:46)
[2017-12-27] MEDS: Vancomycin(*) 1,000 MG in NS 0.9% 250 ML* 250 ML IVPB SCH (10:17)
[2017-12-27] MEDS ORDERED: fentaNYL* 50 MCG/ML 2 ML VIAL (100 MCG VIAL) ONE (10:43)
[2017-12-27] MEDS ORDERED: Midazolam* 1 MG/ML 10 ML VIAL (10 MG) ONE (10:44)
--- NOTE | 2017-12-27 11:32 | PN ---
Progress Note - Progress Note Date of Service: 12/27/17 Note: Progress Note - Critical Care 24 hour events: -on NC, improved resp distress, occassional sob at night -on NC 6L now -no abd pain/n/v/bowel movements noted -s/p EGD 12/27 morning; no acute source of bleeding, no ulcer or acute erosions identified. Tele: Afib, rate controlled Vitals: Vital Signs Temp 98.5 F 12/27/17 07:41 Pulse 83 12/27/17 10:01 Resp 17 12/27/17 10:01 BP 142/85 12/27/17 10:00 Pulse Ox 93 12/27/17 10:01 Intake & Output 12/26/17 12/27/17 12/27/17 18:59 06:59 18:59 Intake Total 1296 792 Output Total 400 600 Balance 896 192 Weight 142 lb 6.698 oz Intake: IV Fluids 198 418 ABX - VANCOMYCIN 56 ABX - ZOSYN 142 124 NS (0.9%) 294 IVPB 250 ABX - VANCOMYCIN 250 Medicated IV 178 374 GEN - Pantoprazole/ 178 374 Protonix Oral 670 Output: Urine 200 600 Julian 200 Other: # Voids 1 O2/Vent: 6L NC, sat 92% Infusions: protonix 8mg/hr Current Medications: Acetaminophen (Tylenol Tab*) 650 mg PO Q6H PRN PRN Reason: HEADACHE/PAIN Last Admin: 12/25/17 14:07 Dose: 650 mg Albuterol (Ventolin 2.5 Mg/3 Ml Neb.Mariella*) 2.5 mg INH Q4H PRN PRN Reason: SOB/WHEEZING Last Admin: 12/27/17 03:03 Dose: 2.5 mg Amlodipine Besylate (Norvasc Tab*) 10 mg PO DAILY [facility] Last Admin: 12/27/17 08:53 Dose: 10 mg Citalopram Hydrobromide (Celexa Tab*) 10 mg PO DAILY [facility] Last Admin: 12/27/17 08:52 Dose: 10 mg Dextrose (D50w Syringe 50 Ml*) 25 gm IV PUSH ONCE PRN PRN Reason: FS < 60 Last Admin: 12/23/17 21:37 Dose: 25 gm Guaifenesin (Mucinex*) 600 mg PO BID PRN PRN Reason: CONGESTION Last Admin: 12/27/17 03:10 Dose: 600 mg Heparin Sodium (Porcine) (Heparin Flush Picc/Ml/Cvc(*)) 1 - 3 ml FLUSH 0600, 1800 [facility] PRN Reason: Protocol Last Admin: 12/27/17 08:35 Dose: Not Given Pantoprazole Sodium 80 mg/ (Sodium Chloride) 250 mls @ 25 mls/hr IVPB Q10H [facility] Last Admin: 12/27/17 10:49 Dose: 25 mls/hr Vancomycin HCl 1,000 mg/ (Sodium Chloride) 250 mls @ 166.667 mls/hr IVPB Q12H [facility] Last Admin: 12/27/17 10:17 Dose: 166.667 mls/hr Piperacillin Sod/Tazobactam (Sod 13.5 gm/ Sodium Chloride) 500 mls @ 20.833 mls /hr IVPB Q24H [facility] Last Admin: 12/27/17 08:52 Dose: 20.833 mls/hr Ipratropium [place] (Atrovent 0.5 Mg Neb.Mariella*) 0.5 mg INH Q4H PRN PRN Reason: SOB/WHEEZING Last Admin: 12/24/17 15:20 Dose: 0.5 mg Methylprednisolone Sodium Succinate (Solu-Medrol 40 Mg) 40 mg IV DAILY [facility] Stop: 12/28/17 09:01 Last Admin: 12/27/17 08:52 Dose: 40 mg Montelukast Sodium (Singulair Tab*) 10 mg PO DAILY [facility] Last Admin: 12/27/17 08:53 Dose: 10 mg Morphine Sulfate (Morphine Vial*) 2 mg IV Q6HR PRN PRN Reason: respiratory distress Last Admin: 12/27/17 05:59 Dose: 2 mg Pharmacy Consult (Vancomycin Per Pharmacy*) 1 note FOLLOW UP . PRN PRN Reason: PER PROTOCOL Tiotropium [place] (Spiriva Cap.Inh*) 1 cap INH DAILY [facility] Last Admin: 12/27/17 09:46 Dose: 1 cap.inh Physical Exam: General: awake, alert, no resp distress, no diaphoresis Head: normocephalic, atraumatic HEENT: +pallor, no icterus, moist mucous membranes Neck: soft, supple, no jvd, no stridor CVS: normal rate, irregular, no murmur Resp: bilateral air entry but diminshed, mild rhales at bases+, no wheeze, no rhonchi, no acc muscle use Abdomen: soft, nontender, nondistended, bowel sounds present Ext: pulses+, cool, 2+ bilateral LE edema with chronic skin changes Skin: intact Neuro: awake, alert, orientedx3, moving all extremities, no gross focal deficit Labs: Laboratory Results - last 24 hr 12/27/17 12/27/17 12/27/17 06:15 06:15 06:15 WBC 5.4 RBC 3.44 L Hgb 8.3 L Hct 26 L MCV 75 L MCH 24 L MCHC 32 RDW 23 H Plt Count 43 L MPV 9.7 INR (Anticoag Therapy) 1.31 H Sodium 144 Potassium 3.8 Chloride 107 Carbon Dioxide 35 H Anion Gap 2 BUN 32 H Creatinine 0.59 L Est GFR ( Amer) 174.2 Est GFR (Non-Af Amer) 135.4 BUN/Creatinine Ratio 54.2 H Glucose 143 H Calcium 8.5 L Total Bilirubin 1.40 H AST 106 H ALT 1062 H Alkaline Phosphatase 64 Total Protein 5.4 L Albumin 3.5 Globulin 1.9 L Albumin/Globulin Ratio 1.8 Vancomycin Trough 12/27/17 08:45 WBC RBC Hgb Hct MCV MCH MCHC RDW Plt Count MPV INR (Anticoag Therapy) Sodium Potassium Chloride Carbon Dioxide Anion Gap BUN Creatinine Est GFR ( Amer) Est GFR (Non-Af Amer) BUN/Creatinine Ratio Glucose Calcium Total Bilirubin AST ALT Alkaline Phosphatase Total Protein Albumin Globulin Albumin/Globulin Ratio Vancomycin Trough 15.0 Imaging: cxr 12/23 hyperinflated lungs, mild interstitial changes as prior cxr, left basal atelectasis +/- infiltrate similar as prior EKG 12/23 nsr, V5-V6 mild ST depressions+ cxr 12/24 - bibasilar infiltrates, mild interstitial congestion+ cxr 12/25 - increase bibasilar infiltrates, no sig congestion noted now Assessment: 72y M pmhx of COPD on home O2 4L, Afib, h/o PE 2017 on Xarelto, CAD , HLD, HTN, CHF, h/o GI hemorrhage 12/2016, Prostate Ca s/p prostatectomy. Patient reports increasing shortness of breath for days now, requiring increased NC to 8L at home. Difficulty performing tasks. Reports no chest pain. No cough/sputum production/sick contacts/fever/chills. No increased LE swelling , but improving compared to prior. He denies dark stools or bleeding from stools , denies vomiting at all. Brought to ER, was tachycardic, BP 100-110s systolic, tachypneic mild, placed on 50% VM and more with improved sats, afebrile. CXR unchanged as prior. Labs demonstrating coagulopathy, acute blood loss anemic with hg 3.8, elevated Creatinine and LFTs. -Acute Blood loss anemia -suspected GI hemorrhage, unclear source -acute on chronic hypoxic respiratory failure -pulmonary congestion -LOLY -Shock Liver -Coagulopathy 2/2 to shock liver/hypoperfusion/anemia -suspect bibasilar infiltrates, possible pneumonia? Plan: Neuro- stable. anxiety better. prn xanax as needed. CVS- BP stable. Afib rate controlled. h/h stable 8s. No bleeding noted further. Holding AC/Xarelto, plan as per GI that maybe Warfarin may be a better option, plan for resuming warfarin/AC in 2 weeks. Lasix as needed. Resp- Hypoxic but dec fio2 requirements, down to 6L. Check CXR tomorrow. Mild chest congestion but able to cough/clear it. keep sat 90-92%. Baseline 4-5L at home. 12/25 CXR with basilar infiltrates. afebrile. IV abx trial for 48 hours, if cxr improved tomorrow, can prob change zosyn to levaquin/ceftriaxone for 3 more days. Wean steroids, IV dialy for 2 days. Bronchodilators q4h. ID- afebrile, tmax 99. wbc normal. CXR some bibasilar infitlrates + congestion . Trial 48 hours IV abx. on IV steroids. GI- No bleeding noted. s/p EGD 12/27, no acute process or source identifed. Change PPI infusion to PPO PO daily. GI recommends change of xarelto to warfarin in 2 weeks. Cardiac diet. h/o gastric/duod ulcers 2016. Shock liver improving, LFTs downtrend, coagulopathy better. Renal- LOLY, likely from hypoperfusion/anemia. Cr down, making some urine. IVF as needed. K okay. Julian as needed. Heme- acute blood loss anemia. coagulopathy 2/2 to Xarelto and shock liver. h/h 8s now, INR 1.4. No further transfusion indicated, monitoring. Endo- fingersticks as needed Musculsk- oob to chair, ambultate, pt/ot Wounds- none Nutrition- soft mech diet. DVT prophylaxis: SCDs GI prophylaxis: PPI PO Central Line: no Arterial Line: no Julian Cathetor: no Disposition: can transfer to medical floor in evening Code Status: full code Jose Spear MD Manager Of [employer] Resources (Electronically Signed)
[2017-12-27] MEDS: Omeprazole CAP* 20 MG PO SCH (14:50)
--- NOTE | 2017-12-27 16:52 | PRO ---
DATE: 12/27/17 REFERRING PHYSICIAN: Jelly Garcia.* PROCEDURE: Upper gastrointestinal endoscopy with pediatric slim scope INDICATION: This 72-year-old man came in with hemoglobin of 3.8 and progressive shortness of breath and shock liver. He has been transfused. His transaminases have been falling and his INR has come down to 1.31. There has been no clinical bleeding and that he has not had any vomiting or loose stools. Rectal yesterday showed firm, soft impaction in the rectum and was dark and heme positive. Overnight, his hemoglobin has been stable at 8.3. ENDOSCOPIST: Dr Julio MEDICATION: Midazolam 1 in 0.5 mg increments. FINDINGS: He is a chronically ill-appearing man with some air hunger, predominantly mouth breathing and O2 saturation between 88% and 90% on 4 to 6 L nasal cannula. Applying a face mask does raise the O2 to 92%. EGD - using room air. Esophagus - easily entered and the mucosa is normal in the upper, mid, and lower esophagus. Little bit of a desquamated coating in the lower 5 cm of esophagus though no classic monilia. Stomach - generally normal mucosa in the cardia, fundus, and body. There is a little bit of scar in the antrum at 4 o'clock orientation, 4 to 5 cm back from pylorus. There is no blood and no active erosions or ulcer. Duodenum - pylorus, bulb, and second through third portions appear normal. No blood was seen. No AVM was seen. On slow withdrawal, there were no additional findings. No blood was seen at any point. Photodocumentation failed. IMPRESSION: 1. Mild antral scar. 2. Otherwise normal upper endoscopy. 3. Acute anemia with heme-positive stool - no high-risk lesions seen, although idiosyncratically personally he appears to have some accelerated bleeding while taking low-dose aspirin and Xarelto in combination and probably the best plan will be to resume Coumadin as best as can be managed in a couple of weeks hopefully once he has demonstrated to have reverted to heme-negative status. [id number]/[facility] #: [id number] [facility]
[2017-12-27] MEDS: Ferrous Sulfate TAB* 325 MG PO SCH (19:35)
[2017-12-28] MEDS: Morphine VIAL* 4 MG/ML VIAL (1 ml vial) IV PRN ×2 (00:51→07:17)
[2017-12-28] MEDS: Albuterol 2.5 MG/3 ML NEB.SOL* (0.083%) INH PRN ×2 (05:10→19:47)
[2017-12-28 05:53] LABS: INR 1.22 (0.77-1.02)
[2017-12-28 06:09] LABS: Hematocrit 27 % (42-52); Hemoglobin 8.7 g/dl (14.0-18.0); Mean Corpuscular HGB Conc 32 g/dl (31-36); Mean Corpuscular Hemoglobin 24 pg (27-31); Mean Corpuscular Volume 76 fL (80-94); Red Blood Count 3.59 10^6/ul (4.0-5.4); Red Cell Distribution Width 23 % (10.5-15); White Blood Count 6.6 10^3/ul (3.5-10.8)
[2017-12-28 06:16] LABS: EGFR Non-African American 163.9 (>60)
[2017-12-28 07:12] LABS: Mean Platelet Volume 8.8 um3 (7.4-10.4); Platelet Count 45 10^3/ul (150-450)
--- NOTE | 2017-12-28 08:16 | RAD ---
HISTORY: Hypoxia COMPARISONS: December 25, 2017 VIEWS: 1: frontal portable view of the chest at 6:15 AM FINDINGS: LINES AND TUBES: A right-sided PICC line is noted with the tip overlying the cavoatrial junction. CARDIOMEDIASTINAL SILHOUETTE: The cardiomediastinal silhouette is normal for portable technique. PLEURA: There is blunting of the costophrenic angles bilaterally. LUNG PARENCHYMA: Again noted is confluent alveolar opacification of the lung bases bilaterally, progressed on the right compared to the previous examination. ABDOMEN: The upper abdomen is clear. There is no subphrenic gas. BONES AND SOFT TISSUES: No bone or soft tissue abnormalities are noted. IMPRESSION: SMALL BILATERAL PLEURAL EFFUSIONS WITH BILATERAL LOWER LUNG CONSOLIDATION, PROGRESSED ON THE RIGHT COMPARED TO DECEMBER 25, 2017
[2017-12-28] MEDS: Tiotropium CAP.INH* CAP.INH/18 MCG (USE ORDER SET !) INH SCH (08:30)
[2017-12-28] MEDS ORDERED: methylPREDNISolone SOD 40 MG* 1 ML VIAL IV SCH (09:00)
[2017-12-28] MEDS: Piperacillin/Tazobactam 13.5 GM IV 24 hour continuous infusion IVPB SCH ×2 (09:56)
[2017-12-28] MEDS: Montelukast Sodium TAB* 10 MG PO SCH (09:57)
[2017-12-28] MEDS: Citalopram TAB* 10 MG PO SCH (09:57)
[2017-12-28] MEDS: Omeprazole CAP* 20 MG PO SCH (09:58)
[2017-12-28] MEDS: Ferrous Sulfate TAB* 325 MG PO SCH ×3 (09:58→21:30)
[2017-12-28] MEDS: amLODIPine TAB* 5 MG PO SCH (09:59)
--- NOTE | 2017-12-28 10:37 | PN ---
Subjective Date of Service: 12/28/17 Interval History: pt felt SOB in AM and requested morphine. Unsure about code status. Breathing feels better now Objective Active Medications: Acetaminophen (Tylenol Tab*) 650 mg PO Q6H PRN PRN Reason: HEADACHE/PAIN Last Admin: 12/25/17 14:07 Dose: 650 mg Albuterol (Ventolin 2.5 Mg/3 Ml Neb.Mariella*) 2.5 mg INH Q4H PRN PRN Reason: SOB/WHEEZING Last Admin: 12/28/17 05:10 Dose: 2.5 mg Amlodipine Besylate (Norvasc Tab*) 10 mg PO DAILY [facility] Last Admin: 12/28/17 09:59 Dose: 10 mg Citalopram Hydrobromide (Celexa Tab*) 10 mg PO DAILY [facility] Last Admin: 12/28/17 09:57 Dose: 10 mg Dextrose (D50w Syringe 50 Ml*) 25 gm IV PUSH ONCE PRN PRN Reason: FS < 60 Last Admin: 12/23/17 21:37 Dose: 25 gm Ferrous Sulfate (Ferrous Sulfate Tab*) 325 mg PO TID [facility] Last Admin: 12/28/17 09:58 Dose: 325 mg Guaifenesin (Mucinex*) 600 mg PO BID PRN PRN Reason: CONGESTION Last Admin: 12/27/17 19:35 Dose: 600 mg Heparin Sodium (Porcine) (Heparin Flush Picc/Ml/Cvc(*)) 1 - 3 ml FLUSH 0600, 1800 [facility] PRN Reason: Protocol Last Admin: 12/28/17 05:24 Dose: 2 ml Piperacillin Sod/Tazobactam (Sod 13.5 gm/ Sodium Chloride) 500 mls @ 20.833 mls /hr IVPB Q24H [facility] Last Admin: 12/28/17 09:56 Dose: 20.833 mls/hr Sodium Chloride (Ns 0.45% 1000 Ml Bag*) 1,000 mls @ 50 mls/hr IV PER RATE [facility] Stop: 12/28/17 23:55 Ipratropium [place] (Atrovent 0.5 Mg Neb.Mariella*) 0.5 mg INH Q4H PRN PRN Reason: SOB/WHEEZING Last Admin: 12/24/17 15:20 Dose: 0.5 mg Montelukast Sodium (Singulair Tab*) 10 mg PO DAILY [facility] Last Admin: 12/28/17 09:57 Dose: 10 mg Morphine Sulfate (Morphine Vial*) 2 mg IV Q6HR PRN PRN Reason: respiratory distress Last Admin: 12/28/17 07:17 Dose: 2 mg Omeprazole (Prilosec Cap*) 20 mg PO DAILY [facility] Last Admin: 12/28/17 09:58 Dose: 20 mg Tiotropium [place] (Spiriva Cap.Inh*) 1 cap INH DAILY [facility] Last Admin: 12/28/17 08:30 Dose: 1 cap.inh Vital Signs - 8 hr 12/28/17 12/28/17 12/28/17 03:00 05:10 07:12 Temperature 96.8 F 97.6 F Pulse Rate 73 73 80 Respiratory 20 16 13 Rate Blood Pressure 135/70 136/60 (mmHg) O2 Sat by Pulse 97 91 93 Oximetry 12/28/17 12/28/17 07:17 09:59 Temperature Pulse Rate Respiratory 20 20 Rate Blood Pressure (mmHg) O2 Sat by Pulse Oximetry Oxygen Devices in Use Now: Nasal Cannula - at 5L Appearance: 72 yo M in nAD, aAOx3, rather poor historian Eyes: No Scleral Icterus, PERRLA Ears/Nose/Mouth/Throat: NL Teeth, Lips, Gums, Mucous Membranes Moist Neck: NL Appearance and Movements; NL JVP, Trachea Midline Respiratory: Symmetrical Chest Expansion and Respiratory Effort, - - coarse breath sounds b/l, very decreased and prolonged expiratory phase Cardiovascular: NL Sounds; No Murmurs; No JVD, RRR Abdominal: NL Sounds; No Tenderness; No Distention, No Hepatosplenomegaly Lymphatic: No Cervical Adenopathy Extremities: No Clubbing, Cyanosis, - - +1 pitting pedal edema b/l and venous stasis skin changes b/l Skin: No Rash or Ulcers, No Nodules or Sclerosis Neurological: Alert and Oriented x 3, NL Muscle Strength and Tone Result Diagrams: 12/28/17 05:15 12/28/17 05:15 Additional Lab and Data: Lab Results 12/23/17 12/23/17 12/23/17 Range/Units 14:53 14:53 14:53 WBC (3.5-10.8) 10^3/ul RBC (4.0-5.4) 10^6/ul Hgb (14.0-18.0) g/dl Hct (42-52) % MCV (80-94) fL MCH (27-31) pg MCHC (31-36) g/dl RDW (10.5-15) % Plt Count (150-450) 10^3/ul MPV (7.4-10.4) um3 Neut % (Auto) (38-83) % Lymph % (Auto) (25-47) % [place] % (Auto) (0-7) % Eos % (Auto) (0-6) % Baso % (Auto) (0-2) % Absolute Neuts (auto) (1.5-7.7) 10^3/ul Absolute Lymphs (auto) (1.0-4.8) 10^3/ul Absolute Monos (auto) (0-0.8) 10^3/ul Absolute Eos (auto) (0-0.6) 10^3/ul Absolute Basos (auto) (0-0.2) 10^3/ul Absolute Nucleated RBC 10^3/ul Nucleated RBC % Hypochromasia Target Cells Elliptocytes Hem Pathologist Commnt INR (Anticoag Therapy) 3.81 H (0.77-1.02) Sodium 138 L (139-145) mmol/L Potassium 6.5 H* (3.5-5.0) mmol/L Chloride 101 (101-111) mmol/L Carbon Dioxide 21 L (22-32) mmol/L Anion Gap 16 H (2-11) mmol/L BUN 47 H (6-24) mg/dL Creatinine 1.34 H (0.67-1.17) mg/dL Est GFR ( Amer) 67.6 (>60) Est GFR (Non-Af Amer) 52.5 (>60) BUN/Creatinine Ratio 35.1 H (8-20) Glucose 118 H (70-100) mg/dL Lactic Acid (0.5-2.0) mmol/L Calcium 8.8 (8.6-10.3) mg/dL Total Bilirubin 0.80 (0.2-1.0) mg/dL AST 465 H (13-39) U/L ALT 560 H (7-52) U/L Alkaline Phosphatase 49 (34-104) U/L Troponin I 0.20 H* (<0.04) ng/mL C-Reactive Protein 14.70 H (< 5.00) mg/L B-Natriuretic Peptide 1157 H ( - 100) pg/mL Total Protein 6.0 L (6.4-8.9) g/dL Albumin 4.0 (3.2-5.2) g/dL Globulin 2.0 (2-4) g/dL Albumin/Globulin Ratio 2.0 (1-3) Blood Type Antibody Screen Crossmatch 12/23/17 12/23/17 12/23/17 Range/Units 14:53 14:53 14:53 WBC 8.9 (3.5-10.8) 10^3/ul RBC 2.05 L (4.0-5.4) 10^6/ul Hgb 3.8 L* (14.0-18.0) g/dl Hct 13 L (42-52) % MCV 65 L (80-94) fL MCH 19 L (27-31) pg MCHC 29 L (31-36) g/dl RDW 20 H (10.5-15) % Plt Count 289 (150-450) 10^3/ul MPV 8.7 (7.4-10.4) um3 Neut % (Auto) 88.6 H (38-83) % Lymph % (Auto) 0.7 L (25-47) % [place] % (Auto) 10.6 H (0-7) % Eos % (Auto) 0 (0-6) % Baso % (Auto) 0.1 (0-2) % Absolute Neuts (auto) 7.8 H (1.5-7.7) 10^3/ul Absolute Lymphs (auto) 0.1 L (1.0-4.8) 10^3/ul Absolute Monos (auto) 0.9 H (0-0.8) 10^3/ul Absolute Eos (auto) 0 (0-0.6) 10^3/ul Absolute Basos (auto) 0 (0-0.2) 10^3/ul Absolute Nucleated RBC 0.2 10^3/ul Nucleated RBC % 2.2 Hypochromasia 3+ Target Cells 1+ Elliptocytes 1+ Hem Pathologist Commnt Pending INR (Anticoag Therapy) (0.77-1.02) Sodium (139-145) mmol/L Potassium (3.5-5.0) mmol/L Chloride (101-111) mmol/L Carbon Dioxide (22-32) mmol/L Anion Gap (2-11) mmol/L BUN (6-24) mg/dL Creatinine (0.67-1.17) mg/dL Est GFR ( Amer) (>60) Est GFR (Non-Af Amer) (>60) BUN/Creatinine Ratio (8-20) Glucose (70-100) mg/dL Lactic Acid 6.5 H* (0.5-2.0) mmol/L Calcium (8.6-10.3) mg/dL Total Bilirubin (0.2-1.0) mg/dL AST (13-39) U/L ALT (7-52) U/L Alkaline Phosphatase (34-104) U/L Troponin I (<0.04) ng/mL C-Reactive Protein (< 5.00) mg/L B-Natriuretic Peptide ( - 100) pg/mL Total Protein (6.4-8.9) g/dL Albumin (3.2-5.2) g/dL Globulin (2-4) g/dL Albumin/Globulin Ratio (1-3) Blood Type A Positive Antibody Screen Negative Crossmatch See Detail Microbiology and Other Data: Microbiology 12/26/17 12:00 Stool Occult Blood ([facility]AL[facility]) - Final Stool 12/23/17 17:30 Nasal Screen MRSA (PCR)(KALEB) - Final Nasal Mrsa Not Detected Assess/Plan/Problems-Billing Assessment: Assessment: This is a 71 yo gentleman with severe COPD, pulm aspergillosis, PE, CAD (cath in 02/2017 showed occluded RCA with collaterals), HTN, HLD and pafib who was admitted to ICU for respiratory failure and pneumonia. - Patient Problems (1) Acute and chronic respiratory failure with hypoxia Comment: Secondary to pneumonia. cont Zosyn. Vanc discontinued by the service girl on 12/27/17 Improving Blood cultures neg H/o pulm aspergilosis, will ask ID to see Baseline very poor respiratory status and advanced COPD. Pt likes morphine for air hunger. Discussed code status and comfort care , pt unsure about code. will ask palliative care to consult re:code status. (2) Shock liver Comment: due to GI bleed, LFT's improving (3) GI bleed Comment: Appreciate GI assistance. EGD on 12/11/16 showed duodenal ulcer. EGD on 12/27/17 showed no source of bleeding Continue PPI daily. Hb stable Holding Xarelto. Plan to restart Coumadin as outpatient s/p 4 U PRBC and 5 U FFP's transfused this hospital stay (4) Atrial fibrillation Comment: Hx of paroxysmal afib. Currently in sinus rhythm. Anticoagulation held due to GI bleed (5) Hypernatremia Comment: will tx with 1/2 NS today and monitor (6) Troponin level elevated Comment: Likely demand ischemia. echo ordered (7) Thrombocytopenia Comment: secondary to Consumption? cont to monitor pt had been receiving heparin flushes for PICC-held and HIT antibodies ordered (8) HTN (hypertension) Comment: Normotensive on Norvasc (9) DVT prophylaxis Comment: SCD's , holding anticoagulation due to GI bleed Status and Disposition: inpatient
[2017-12-28] MEDS ORDERED: NS 0.45% 1000 ML BAG* 1,000 ML IV SCH (11:00)
[2017-12-28] MEDS ORDERED: Magnesium Hydroxide LIQ* 30 ML UDC PO PRN (11:05)
[2017-12-28] MEDS: Docusate CAP* 100 MG PO SCH ×2 (11:31→21:30)
[2017-12-28] MEDS: Morphine ORAL.SOLN 10 mg* 2 MG/ML UDC 5 ml PO PRN ×2 (12:14→22:50)
[2017-12-28] MEDS: guaiFENesin ER TAB 600 MG PO PRN (21:29)
[2017-12-28] MEDS: Polyethylene Glycol 3350* 17 GM PACKET PO SCH (21:30)
[2017-12-29] MEDS ORDERED: Morphine VIAL* 4 MG/ML VIAL (1 ml vial) IV PRN (00:16)
[2017-12-29] MEDS: Albuterol 2.5 MG/3 ML NEB.SOL* (0.083%) INH PRN ×2 (04:26→08:12)
[2017-12-29 05:39] LABS: Hematocrit 28 % (42-52); Hemoglobin 8.7 g/dl (14.0-18.0); Mean Corpuscular HGB Conc 31 g/dl (31-36); Mean Corpuscular Hemoglobin 24 pg (27-31); Mean Corpuscular Volume 77 fL (80-94); Mean Platelet Volume 8.8 um3 (7.4-10.4); Platelet Count 58 10^3/ul (150-450); Red Blood Count 3.65 10^6/ul (4.0-5.4); Red Cell Distribution Width 24 % (10.5-15); White Blood Count 8.4 10^3/ul (3.5-10.8)
[2017-12-29 05:55] LABS: EGFR Non-African American 167.8 (>60)
[2017-12-29] MEDS: Tiotropium CAP.INH* CAP.INH/18 MCG (USE ORDER SET !) INH SCH (08:11)
[2017-12-29 08:26] LABS: ABS Basophils 0 10^3/ul (0-0.2); ABS Eosinophils 0 10^3/ul (0-0.6); ABS Lymphocytes 0.2 10^3/ul (1.0-4.8); ABS Monocytes 1.7 10^3/ul (0-0.8); ABS Neutrophils 6.5 10^3/ul (1.5-7.7); ABS Nucleated RBC 0 10^3/ul; Eosinophil % 0.1 % (0-6); Lymphocyte % 2.6 % (25-47); Nucleated Red Blood Cells % 0.5
[2017-12-29] MEDS: Omeprazole CAP* 20 MG PO SCH (09:26)
[2017-12-29] MEDS: Docusate CAP* 100 MG PO SCH (09:26)
[2017-12-29] MEDS: Polyethylene Glycol 3350* 17 GM PACKET PO SCH (09:26)
[2017-12-29] MEDS: Ferrous Sulfate TAB* 325 MG PO SCH ×2 (09:26→15:36)
[2017-12-29] MEDS: Montelukast Sodium TAB* 10 MG PO SCH (09:26)
[2017-12-29] MEDS: amLODIPine TAB* 5 MG PO SCH (09:26)
[2017-12-29] MEDS: Citalopram TAB* 10 MG PO SCH (09:27)
[2017-12-29] MEDS: guaiFENesin ER TAB 600 MG PO PRN (09:27)
[2017-12-29] MEDS: Morphine ORAL.SOLN 10 mg* 2 MG/ML UDC 5 ml PO PRN (10:18)
[2017-12-29] MEDS: Piperacillin/Tazobactam 13.5 GM IV 24 hour continuous infusion IVPB SCH ×2 (10:18)
--- NOTE | 2017-12-29 12:17 | CONSULT ---
Palliative / Hospice Consult Ordering Provider: Kathy Acosta - Subjective Code Status: Full Code Advance Directives Location: No Advance Directives MOLST Part A Completed: Yes - DNR Date: 12/29/17 MOLST Part E Completed:: Yes - DNI, CC only, no KARAN Date: 12/29/17 HCP Completed: Yes - Lynnette Cerda - History or Present Illness History or Present Illness: This 72 year old man with severe pulmonary disease had 7 [facility] admissions in 2017 for pulmonary disease. He has ES COPD, chronic respiratory failure, pulmonary hypertension, and chronic aspergillosis, and has had a PE in the past while on Xarelto. Additional PMH includes AF with RVR, HLD, HTN, CAD, CHF, and prostate cancer. His recent repeat ECHO done 12/23/17 showed marked reduction in LV function since 2017, with global hypokinesis and EF decreased to 25-30%. He was admitted 12/23/17 with Hb 3.8 from GI bleeding, with severe hypoxia, acute kidney injury and shock liver. His upper endoscopy yesterday by Dr. Julio showed no evidence of bleeding through the gastric outlet, and he has been stable since then with H/H 8.7/28. Surprisingly, despite multiple hospitalizations for complications of COPD, this patient has never had advance directives addressed while in the hospital, and is a full code at present. His , Lynnette, says he has wanted CPR when they have discussed it in the past. He is becoming confused and palliative consultation was requested to discuss with the patient and his family his options for treatment and goals of care. His anticoagulation has been the subject of discussion with multiple providers, because he has a history of PE and AF, but has also had GI bleeding in the past. With his recent marked decline in LV function on top of his severe COPD, this patient has a very limited prognosis. Lab Values: Abnormal Lab Results 12/29/17 12/29/17 05:00 05:00 WBC 8.4 RBC 3.65 L Hgb 8.7 L Hct 28 L MCV 77 L MCH 24 L MCHC 31 RDW 24 H Plt Count 58 L MPV 8.8 Neut % (Auto) 76.9 Lymph % (Auto) 2.6 L Jack % (Auto) 20.4 H Eos % (Auto) 0.1 Baso % (Auto) 0 Absolute Neuts (auto) 6.5 Absolute Lymphs (auto) 0.2 L Absolute Monos (auto) 1.7 H Absolute Eos (auto) 0 Absolute Basos (auto) 0 Absolute Nucleated RBC 0 Nucleated RBC % 0.5 Polychromasia 1+ Hypochromasia 2+ Microcytosis 1+ Elliptocytes 1+ Sodium 145 Potassium 3.7 Chloride 106 Carbon Dioxide 37 H Anion Gap 2 BUN 22 Creatinine 0.49 L Est GFR ( Amer) 215.8 Est GFR (Non-Af Amer) 167.8 BUN/Creatinine Ratio 44.9 H Glucose 135 H Calcium 8.6 Laboratory Last Values WBC 8.4 10^3/ul (3.5-10.8) 12/29/17 05:00 RBC 3.65 10^6/ul (4.0-5.4) L 12/29/17 05:00 Hgb 8.7 g/dl (14.0-18.0) L 12/29/17 05:00 Hct 28 % (42-52) L 12/29/17 05:00 MCV 77 fL (80-94) L 12/29/17 05:00 MCH 24 pg (27-31) L 12/29/17 05:00 MCHC 31 g/dl (31-36) 12/29/17 05:00 RDW 24 % (10.5-15) H 12/29/17 05:00 Plt Count 58 10^3/ul (150-450) L 12/29/17 05:00 MPV 8.8 um3 (7.4-10.4) 12/29/17 05:00 Neut % (Auto) 76.9 % (38-83) 12/29/17 05:00 Lymph % (Auto) 2.6 % (25-47) L 12/29/17 05:00 Jack % (Auto) 20.4 % (0-7) H 12/29/17 05:00 Eos % (Auto) 0.1 % (0-6) 12/29/17 05:00 Baso % (Auto) 0 % (0-2) 12/29/17 05:00 Absolute Neuts (auto) 6.5 10^3/ul (1.5-7.7) 12/29/17 05:00 Absolute Lymphs (auto) 0.2 10^3/ul (1.0-4.8) L 12/29/17 05:00 Absolute Monos (auto) 1.7 10^3/ul (0-0.8) H 12/29/17 05:00 Absolute Eos (auto) 0 10^3/ul (0-0.6) 12/29/17 05:00 Absolute Basos (auto) 0 10^3/ul (0-0.2) 12/29/17 05:00 Absolute Nucleated RBC 0 10^3/ul 12/29/17 05:00 Nucleated RBC % 0.5 12/29/17 05:00 Polychromasia 1+ 12/29/17 05:00 Hypochromasia 2+ 12/29/17 05:00 Microcytosis 1+ 12/29/17 05:00 Target Cells 1+ 12/23/17 14:53 Elliptocytes 1+ 12/29/17 05:00 Hem Pathologist Commnt 12/23/17 14:53 INR (Anticoag Therapy) 1.22 (0.77-1.02) H 12/28/17 05:15 APTT 29.0 seconds (26.0-36.3) 12/25/17 05:20 Patient Temperature Not Reportable 12/24/17 14:45 ABG pH 7.31 (7.35-7.45) L 12/24/17 14:45 ABG pH (Temp Correct) Not Reportable 12/24/17 14:45 ABG pCO2 58 mmHg (35-45) H 12/24/17 14:45 ABG pCO2 (Temp Corrct Not Reportable 12/24/17 14:45 ABG pO2 68 mmHg (80-100) L 12/24/17 14:45 ABG pO2 (Temp Correct Not Reportable 12/24/17 14:45 ABG HCO3 26.9 mmol/L (19-31) 12/24/17 14:45 ABG O2 Saturation 95.8 % (95-98) 12/24/17 14:45 ABG Base Excess 2.5 (-2.0-2.0) H 12/24/17 14:45 Respiration Rate Not Reportable 12/24/17 14:45 O2 Delivery Device vapo 12/24/17 14:45 Ventilator Type Not Reportable 12/24/17 14:45 Vent Mode 85 12/24/17 14:45 FiO2 40 12/24/17 14:45 Inspiratory Time Not Reportable 12/24/17 14:45 PEEP Not Reportable 12/24/17 14:45 Pressure Support Not Reportable 12/24/17 14:45 Pressure Control Not Reportable 12/24/17 14:45 EPAP Not Reportable 12/24/17 14:45 IPAP Not Reportable 12/24/17 14:45 BiPAP Not Reportable 12/24/17 14:45 Sodium 145 mmol/L (139-145) 12/29/17 05:00 Potassium 3.7 mmol/L (3.5-5.0) 12/29/17 05:00 Chloride 106 mmol/L (101-111) 12/29/17 05:00 Carbon Dioxide 37 mmol/L (22-32) H 12/29/17 05:00 Anion Gap 2 mmol/L (2-11) 12/29/17 05:00 BUN 22 mg/dL (6-24) 12/29/17 05:00 Creatinine 0.49 mg/dL (0.67-1.17) L 12/29/17 05:00 Est GFR ( Amer) 215.8 (>60) 12/29/17 05:00 Est GFR (Non-Af Amer) 167.8 (>60) 12/29/17 05:00 BUN/Creatinine Ratio 44.9 (8-20) H 12/29/17 05:00 Glucose 135 mg/dL (70-100) H 12/29/17 05:00 Lactic Acid 1.9 mmol/L (0.5-2.0) 12/24/17 00:10 Calcium 8.6 mg/dL (8.6-10.3) 12/29/17 05:00 Total Bilirubin 1.40 mg/dL (0.2-1.0) H 12/28/17 05:15 AST 53 U/L (13-39) H 12/28/17 05:15 ALT 696 U/L (7-52) H 12/28/17 05:15 Alkaline Phosphatase 57 U/L (34-104) 12/28/17 05:15 Troponin I 0.20 ng/mL (<0.04) H* 12/26/17 05:21 C-Reactive Protein 14.70 mg/L (< 5.00) H 12/23/17 14:53 B-Natriuretic Peptide 1157 pg/mL (-100) H 12/23/17 14:53 Total Protein 5.3 g/dL (6.4-8.9) L 12/28/17 05:15 Albumin 3.5 g/dL (3.2-5.2) 12/28/17 05:15 Globulin 1.8 g/dL (2-4) L 12/28/17 05:15 Albumin/Globulin Ratio 1.9 (1-3) 12/28/17 05:15 Vancomycin Trough 15.0 mcg/mL 12/27/17 08:45 Blood Type A Positive 12/23/17 14:53 Antibody Screen Negative 12/23/17 14:53 Crossmatch See Detail 12/23/17 14:53 - Objective Active Medications: Acetaminophen (Tylenol Tab*) 650 mg PO Q6H PRN PRN Reason: HEADACHE/PAIN Last Admin: 12/25/17 14:07 Dose: 650 mg Albuterol (Ventolin 2.5 Mg/3 Ml Neb.Mariella*) 2.5 mg INH Q4H PRN PRN Reason: SOB/WHEEZING Last Admin: 12/29/17 08:12 Dose: 2.5 mg Amlodipine Besylate (Norvasc Tab*) 10 mg PO DAILY [facility] Last Admin: 12/29/17 09:26 Dose: 10 mg Citalopram Hydrobromide (Celexa Tab*) 10 mg PO DAILY [facility] Last Admin: 12/29/17 09:27 Dose: 10 mg Dextrose (D50w Syringe 50 Ml*) 25 gm IV PUSH ONCE PRN PRN Reason: FS < 60 Last Admin: 12/23/17 21:37 Dose: 25 gm Docusate Sodium (Colace Cap*) 100 mg PO BID [facility] Last Admin: 12/29/17 09:26 Dose: 100 mg Ferrous Sulfate (Ferrous Sulfate Tab*) 325 mg PO TID [facility] Last Admin: 12/29/17 09:26 Dose: 325 mg Guaifenesin (Mucinex*) 600 mg PO BID PRN PRN Reason: CONGESTION Last Admin: 12/29/17 09:27 Dose: 600 mg Piperacillin Sod/Tazobactam (Sod 13.5 gm/ Sodium Chloride) 500 mls @ 20.833 mls /hr IVPB Q24H [facility] Last Admin: 12/29/17 10:18 Dose: 20.833 mls/hr Ipratropium [place] (Atrovent 0.5 Mg Neb.Mariella*) 0.5 mg INH Q4H PRN PRN Reason: SOB/WHEEZING Last Admin: 12/24/17 15:20 Dose: 0.5 mg Magnesium Hydroxide (Milk Of Magnesia Liq*) 30 ml PO Q6H PRN PRN Reason: CONSTIPATION Montelukast Sodium (Singulair Tab*) 10 mg PO DAILY [facility] Last Admin: 12/29/17 09:26 Dose: 10 mg Morphine Sulfate (Morphine Oral.Soln 10 Mg*) 10 mg PO Q6H PRN PRN Reason: DISCOMFORT Last Admin: 12/29/17 10:18 Dose: 10 mg Morphine Sulfate (Morphine Vial*) 2 mg IV ONCE PRN PRN Reason: air hunger Last Admin: 12/29/17 02:35 Dose: 2 mg Omeprazole (Prilosec Cap*) 20 mg PO DAILY [facility] Last Admin: 12/29/17 09:26 Dose: 20 mg Polyethylene Glycol/Electrolytes (Miralax*) 17 gm PO 0800,2100 [facility] Last Admin: 12/29/17 09:26 Dose: 17 gm Tiotropium [place] (Spiriva Cap.Inh*) 1 cap INH DAILY [facility] Last Admin: 12/29/17 08:11 Dose: 1 cap.inh Vital Signs: Vital Signs: Temp Pulse Resp BP Pulse Ox 97.4 F 92 20 116/52 97 12/29/17 07:33 12/29/17 08:14 12/29/17 10:18 12/29/17 07:33 12/29/17 08:14 Patient Weight: Weight 142 lb 6.698 oz Intake and Output: Intake & Output 12/27/17 12/28/17 12/29/17 12/30/17 06:59 06:59 06:59 06:59 Intake Total 2088 981 540 240 Output Total 1000 0 775 Balance 1088 981 -235 240 Weight 142 lb 6.698 oz Intake: IV Fluids 616 80 ABX - VANCOMYCIN 56 ABX - ZOSYN 266 NS (0.9%) 294 80 IVPB 250 458 ABX - VANCOMYCIN 250 260 ABX - ZOSYN 198 Medicated IV 552 243 GEN - Pantoprazole/ 552 243 Protonix Oral 670 200 540 240 Output: Urine 800 0 775 Julian 200 Other: Estimated Void Small # Bowel Movements 0 0 # Voids 1 1 ADLs: Meal Record Start: 12/23/17 16: 36 Freq: 09,13,18 Status: Complete Protocol: Document 12/23/17 18:40 [id number] (Rec: 12/23/17 18:40 [id number] ICU-C06) Document 12/24/17 09:00 [id number] (Rec: 12/24/17 10:01 [id number] ICU-C06) Document 12/24/17 13:00 [id number] (Rec: 12/24/17 14:18 [id number] ICU-C06) Document 12/24/17 18:00 [id number] (Rec: 12/24/17 18:00 [id number] ICU-C06) Document 12/25/17 09:00 [id number] (Rec: 12/25/17 09:44 [id number] ICU-C06) Document 12/25/17 13:00 [id number] (Rec: 12/25/17 15:09 [id number] ICU-C06) Document 12/26/17 09:00 [id number] (Rec: 12/26/17 09:35 [id number] ICU-C18) Document 12/26/17 13:00 [id number] (Rec: 12/26/17 13:01 [id number] ICU-C18) Document 12/26/17 18:29 [id number] (Rec: 12/26/17 18:29 [id number] ICU-C07) Document 12/27/17 09:00 [id number] (Rec: 12/27/17 14:52 [id number] ICU-C06) ADLs: Meal Record Start: 12/27/17 16: 19 Freq: DAILY@0900,1400,1800 Status: Active Protocol: Created 12/27/17 16:19 [id number] (Rec: 12/27/17 16:19 [id number] ICU-C06) Document 12/27/17 18:00 [id number] (Rec: 12/27/17 18:27 [id number] MED-M01) Document 12/28/17 10:20 [id number] (Rec: 12/28/17 10:25 [id number] MED-M16) Document 12/28/17 14:00 VOZ6231 (Rec: 12/28/17 14:21 [id number] MED-C11) Document 12/28/17 18:00 [id number] (Rec: 12/28/17 18:29 [id number] MED-C11) Document 12/29/17 09:00 [id number] (Rec: 12/29/17 11:23 [id number] MED-C02) Intake and Output Start: 12/23/17 16: 36 Freq: 06,14,22 Status: Complete Protocol: Document 12/23/17 22:00 [id number] (Rec: 12/23/17 22:15 [id number] ICU-C07) Document 12/23/17 22:16 [id number] (Rec: 12/23/17 22:16 [id number] ICU-C07) Document 12/24/17 04:52 [id number] (Rec: 12/24/17 04:52 CSK2482 ICU-C16) Document 12/24/17 06:00 [id number] (Rec: 12/24/17 06:47 [id number] ICU-M15) Document 12/24/17 06:48 [id number] (Rec: 12/24/17 06:48 [id number] ICU-M15) Document 12/24/17 09:11 CYP5058 (Rec: 12/24/17 09:11 MPT8895 ICU-C06) Document 12/24/17 11:04 [id number] (Rec: 12/24/17 11:04 [id number] ICU-M15) Document 12/24/17 15:04 [id number] (Rec: 12/24/17 15:04 WKY2806 ICU-M15) Document 12/24/17 18:13 RMC0365 (Rec: 12/24/17 18:19 HDM3472 ICU-C06) Document 12/24/17 22:00 [id number] (Rec: 12/24/17 23:37 HUW2259 ICU-M15) Document 12/25/17 06:00 FFL1307 (Rec: 12/25/17 06:06 MRH1508 ICU-C25) Document 12/25/17 09:45 [id number] (Rec: 12/26/17 07:15 [id number] ICU-C07) Document 12/25/17 14:00 [id number] (Rec: 12/25/17 14:42 PGL6120 ICU-C08) Document 12/25/17 22:00 [id number] (Rec: 12/25/17 23:06 [id number] ICU-C06) Document 12/26/17 06:00 [id number] (Rec: 12/26/17 06:32 [id number] ICU-C07) Document 12/26/17 12:03 RIJ9783 (Rec: 12/26/17 12:03 RZI6988 ICU-C18) Document 12/26/17 14:00 SSX1332 (Rec: 12/26/17 14:37 [id number] ICU-C06) Document 12/26/17 17:45 EQX7611 (Rec: 12/26/17 17:46 [id number] ICU-C16) Document 12/26/17 22:00 SQI7044 (Rec: 12/26/17 22:30 UWQ4595 ICU-C07) Document 12/26/17 22:31 EPT3491 (Rec: 12/26/17 22:31 [id number] ICU-C07) Document 12/27/17 05:20 [id number] (Rec: 12/27/17 05:21 [id number] ICU-C07) Intake and Output Start: 12/27/17 16: 19 Freq: DAILY@0600,1400,2200 Status: Active Protocol: Created 12/27/17 16:19 [id number] (Rec: 12/27/17 16:19 [id number] ICU-C06) Document 12/28/17 06:00 [id number] (Rec: 12/28/17 06:06 KJS0207 MED-C09) Document 12/28/17 14:00 MHS5242 (Rec: 12/28/17 14:21 TJA0899 MED-C11) Document 12/28/17 19:50 [id number] (Rec: 12/28/17 19:51 [id number] MED-C11) Document 12/29/17 05:44 ALI5155 (Rec: 12/29/17 05:44 IKQ0167 MED-C09) General Impression: Pleasant, confused man who is very dyspneic even at rest, lying in bed, dozing off frequently. Head: Symmetrical Eyes: No Scleral Icterus, PERRLA Ears/Nose/Mouth/Throat: NL Teeth, Lips, Gums, Mucous Membranes Moist Neck: NL Appearance and Movements; NL JVP, Trachea Midline Cardiovascular: NL Sounds; No Murmurs; No JVD, RRR Respiratory: Symmetrical Chest Expansion and Respiratory Effort Abdominal: NL Sounds; No Tenderness; No Distention, No Hepatosplenomegaly Extremities: No Clubbing, Cyanosis, - - +1 pitting pedal edema b/l and venous stasis skin changes b/l Neurological: Alert and Oriented x 3, NL Muscle Strength and Tone - Assessment Assessment: After a brief family meeting, the members present decided unanimously with the patient to accept palliative measures only and to take the patient home on hospice services. Their questions were answered. Lynnette the HCP signed the [facility] form specifying DNR/DNI/no KARAN. They wish to continue antibiotics. The patient is chronically on 4 L O2, currently 6 L O2. 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 His reserves the right to return him to the hospital if he has recurrent GI bleeding or other diagnoses unrelated to his terminal hospice diagnoses, which should be covered by traditional Medicare coverage. - Plan Consult Plan (MU): Hospice - Time On Unit Date of Evaluation: 12/29/17 Hospice Consult Time in: 11:45 Hospice Consult Time Out: 13:45 Hospice Consult Time Total: 120 > 50% of Time Spend In Counseling or Coordinating Care: Yes
[2017-12-29 12:40] VITALS: BP 118/44
[2017-12-29] MEDS ORDERED: Sodium Chloride(INHALANT) 7%* 4 ML NEB.SOLN INH PRN (15:09)
--- NOTE | 2017-12-29 15:09 | CONS ---
PULMONARY CONSULTATION REPORT: DATE OF CONSULT: 12/29/17 REQUESTING PHYSICIAN: Dr. Acosta. REASON FOR CONSULTATION: Evaluation of shortness of breath. HISTORY OF PRESENT ILLNESS: The patient is a 72-year-old male with history of COPD, on home O2 4 L; AFib; history of PE, on Xarelto; coronary artery disease; CHF; history of GI bleed, admission December of 2016 for GI bleed; prostate CA, status post prostatectomy; diagnosed with aspergillus pulmonary infection, completed antifungal therapy with history of recurrent admissions in the past for acute bronchitis and COPD exacerbation. Patient presents for evaluation of worsening shortness of breath. Patient's shortness of breath has been gradually worsening over the past few days, was being treated with 2 courses of antibiotics and prednisone as outpatient by primary care physician with no significant improvement in symptoms. Patient's family brought him for further evaluation. Patient is visibly short of breath even at rest. Patient reports that he becomes significantly dyspneic even with minimal exertion. Reports having moist cough. He is unable to cough of the phlegm. Patient has fevers prior to admission. Patient also apparently had slow GI bleed, was found to be significantly anemic, received transfusion on admission. Patient's hemoglobin is improved currently. Patient reports that he did not have bowel movement since admission. He was also started on morphine for relief of dyspnea. He is on maximal therapy for COPD at this time. Patient's family is wanting to take him home at this time. Patient reports no significant change in shortness of breath since admission. Denies any further episodes of fevers or chills. PAST MEDICAL HISTORY: 1. COPD, on home O2 4 L. 2. AFib. 3. PE in 2017, on Xarelto. 4. CAD. 5. Dyslipidemia. 6. Hypertension. 7. CHF. 8. GI hemorrhage. 9. Prostate cancer, status post prostatectomy. PAST SURGICAL HISTORY: Prostatectomy. MEDICATIONS AT HOME: 1. Spiriva. 2. Albuterol. 3. Combivent. 4. Symbicort. 5. Singulair. 6. Celexa. 7. Lasix. 8. Zithromax. 9. Prilosec. 10. Xarelto. 11. Vitamin D3. 12. Ecotrin. 13. Norvasc. FAMILY HISTORY: Coronary artery disease, hypertension, COPD. SOCIAL HISTORY: Former smoker with significant smoking history, quit a few years ago. No alcohol or drug abuse. REVIEW OF SYSTEMS: All 14 systems reviewed and as per HPI. PHYSICAL EXAM: Patient is in bed, in mild distress with talking, using accessory muscles of respiration. Temperature 97.4, pulse 92 beats per minute, respiratory rate is 17 per minute, O2 sat 97% on 7 L. HEENT: Pupils equal reactive to light. Mucous membranes are moist. Lungs: Diminished air entry bilaterally. No wheeze. Cardiovascular: S1, S2 present, regular. Abdomen: Soft, nontender, nondistended. Bowel sounds present. Extremities: Normal range of motion. DIAGNOSTIC STUDIES/LAB DATA: WBC count 8.4, hemoglobin 8.7, hematocrit 28, hemoglobin on admission was about 3.8, platelet count is low at 58. Blood gas analysis on admission showed, pH of 7.31, pCO2 of 58, pO2 of 68, bicarb of 26.5. Sodium 145, potassium 3.7, chloride 106, bicarb elevated at 37, BUN 22, creatinine 0.48. Chest x-ray performed on admission was personally reviewed by me - evidence of air space opacities bilaterally and pleural effusions bilaterally, and slight progression from admission. IMPRESSION AND RECOMMENDATIONS: 72-year-old male with multiple comorbidities including COPD, significant hypoxemia at rest, history of GI bleed, history of aspergillus infection admitted with worsening shortness of breath, likely secondary to severe GI bleed and severe anemia from blood loss, symptoms slightly improved after transfusion; however, still significantly dyspneic. He also appears to be having pneumonia bilaterally along with pleural effusions, which is likely resulting significant dyspnea in spite of improvement in hemoglobin levels. He is being treated for community acquired pneumonia who is being treated as outpatient by his primary care physician, has been on chronic azithromycin therapy. He is on broad spectrum antibiotics for possible aspiration pneumonia at this point. Agree with current management for COPD. He is also receiving bronchodilators. He has no acute COPD exacerbation, does not need steroids at this time. He was started on morphine, has not had bowel movement since admission, which might be also contributing to his shortness of breath. Would recommend bowel regimen while on morphine. He has history of aspergillus lung infection and pulmonary nodule in the left lung, which was slightly increased on followup scan after completing treatment for aspergillus, was scheduled for CT-guided biopsy at which time, the nodule was decreased in size and biopsy was cancelled. No other suspicious nodules or masses were seen on most recent CT chest from December. He is on anticoagulation for history of PE, with current GI bleed that is being held. Patient with multiple comorbidities with worsening of shortness of breath in spite of being on maximal therapy. Family interested in keeping him comfortable. Agree with palliative care consultation. Thank you for allowing me to participate in the care of your patient. Will follow up with you. [id number]/[facility] #: [id number] NIKKY
--- NOTE | 2017-12-29 20:59 | DS ---
CC: Dr. Garcia; Dr. Ave Harding; Dr. Israel; Dr. Steel* DISCHARGE SUMMARY: DATE OF ADMISSION: 12/23/17 DATE OF DISCHARGE: To home with hospice assistance, 12/29/17. PRIMARY CARE PROVIDER: Dr. Garcia. DISCHARGE DIAGNOSES: 1. Acute presumed upper GI bleed with unremarkable upper endoscopy during the hospital stay in the patient who was on Xarelto when the GI bleed occurred. 2. Shock liver due to likely hypovolemia due to acute GI bleed. 3. Acute hypoxemic respiratory failure on chronic hypoxemic respiratory failure due to pneumonia and exacerbation of chronic pulmonary problems with chronic obstructive pulmonary disease. SECONDARY DIAGNOSES: 1. 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 Means. 2. History of pulmonary embolism, diagnosed in the mid of 2017. 3. History of diastolic congestive heart failure with EF documented at 40% in 2017, down to 25% during this hospital stay. 4. History of coronary artery disease. 5. Hypertension. 6. Hyperlipidemia. 7. History of paroxysmal atrial fibrillation. 8. History of prostate cancer, status post prostatectomy. DISPOSITION: Please note that the patient is being discharged with comfort care orders to home with plan for hospice followup within the next 3 to 4 days. MEDICATIONS: At discharge include: 1. Albuterol inhaler 2 puffs every 6 hours p.r.n. 2. Norvasc 10 mg daily. 3. Symbicort 160/4.5 one puff b.i.d. 4. Cefdinir 300 mg b.i.d. for 4 days total. 5. Vitamin D3, 1000 units daily. 6. Celexa 10 mg daily. 7. Furosemide 40 mg b.i.d. 8. Singulair 10 mg daily. 9. Morphine oral solution 5 mg every 6 hours p.r.n. pain or air hunger. 10. Omeprazole 20 mg daily. 11. Spiriva 1 inhalation daily. 12. The patient's Lasix dose is unchanged at 40 mg twice a day as previously taken. LABORATORY DATA: On 12/29/17, white blood cell count 8.4, hemoglobin 8.7, hematocrit of 28, platelets of 58,000 which is slightly increased from yesterday 's when it was 45,000. Sodium of 145, potassium 3.7, chloride 106, carbon dioxide 37, BUN 22, creatinine 0.49. Portable chest x-ray documented on 12/28/17, impression: Small bilateral pleural effusions with bilateral lower lung consolidation. Progressed on the right compared to 12/25/17 study. The patient's echo on 12/28/17 showed EF 25% to 30%, markedly decreased compared from April 2017. There was diffuse global hypokinesis and evidence of moderate pulmonary hypertension. Microbiology studies showed stool occult blood positive on 12/26/17. CONSULTATIONS: During the hospital stay included Dr. Parham from Gastroenterology and Dr. Ave Harding from Palliative Care. PROCEDURE PERFORMED: Dr. Julio from Gastroenterology, who performed upper endoscopy on 12/27/17, which showed mild antral scar. Otherwise, normal upper endoscopy. HOSPITALIZATION COURSE: Omid Celis is a 72-year-old male with history of invasive pulmonary aspergillosis and chronic hypoxemic respiratory failure due to severe lung disease and COPD, who was at baseline oxygen at 4 to 8 L, who presented to the hospital with GI bleed, presumed upper. The patient overall required 4 packed red blood cell transfusions and 4 units of FFP transfusion during his hospital stay. He was on Xarelto prior to his bleed, which was discontinued. He was seen by Gastroenterology and as mentioned above, his upper endoscopy was unremarkable. He also had marked elevation of liver function tests at admission and was diagnosed with shock liver by the orange peel operator, Dr. Spear, who took care of the patient initially. He also was noted to have pneumonia and was placed on Zosyn by the orange peel operator. On 12/28/17 , in the evening, he was discharged out of the ICU to the medical floor. He continued to require oxygen for air hunger and was uncomfortable due to that. His EF was noted to be 25%, which is new. At this point, I asked Dr. Ave Harding from Palliative Care to see the patient in consultation. He appears to have end-stage pulmonary disease with cardiomyopathy. He had a cardiac catheterization in the first half of the year of 2016, which showed no marked abnormalities that could be treated. He had known RCA occlusion with good collaterals. After the discussion with Dr. Ave Harding, the family and the patient decided for the patient to go on home hospice and be discharged right away. The patient already has home oxygen and has a walker and a wheelchair at home. We will arrange bedside home O2 to be delivered to home. Hospice will likely sign in with the patient in approximately 3 to 4 days. Until then, he is to use morphine concentrate on a p.r.n. basis. I educated the patient's to keep the patient's oxygenations with O2 sat of approximately 90% to 92% and to not increase his oxygen too much due to the possibility of CO2 retention. PHYSICAL EXAMINATION: At the time of discharge, blood pressure 118/44, heart rate of 78 and regular, respiratory rate 13, and oxygen saturation 97% on 6 L of oxygen on nasal cannula, and temperature of 97.4. General: The patient is a very pleasant 72-year-old male, who is in no acute distress. The patient is slightly forgetful, but otherwise alert and oriented x2. HEENT: Head is atraumatic, normocephalic. Eyes: Pupils are equal, reactive to light and accommodation. Oropharynx is clear. Mucosa moist. Neck: Supple. No JVD. No bruits bilaterally. Cardiovascular: Regular rate and rhythm. No murmur. Respiratory: Coarse breath sounds throughout with very decreased expiratory phase. Abdomen: Soft, nontender. Bowel sounds are present in all 4 quadrants. Extremities: There is +1 pitting pedal edema. Pulses are +2 bilaterally. There is no clubbing or cyanosis. On evaluation of the skin, pale. No other abnormalities noted. Neuro Evaluation: Speech clear. Cranial nerves II through XII grossly intact. Motor strength is 5/5 bilaterally. DISCHARGE INSTRUCTIONS: The patient is going to sign in on home hospice within the next 4 days or so. Until then, he is recommended to follow up with his primary care provider as possible. [id number]/[facility] #: [id number] [facility]
== END 2017-12-29 16:30 | disposition hospice, home (50) | DRG 377 ==
LOC: ED 13:20 → ICU 16:23 → MED 12-27 16:58
PROVIDERS: ADMIT Internal Medicine Critical Care Medicine; ATTEND Internal Medicine
PROC: 30233K1 Transfusion of Nonautologous Frozen Plasma into Peripheral Vein, Percutaneous Approach (ICD-10-PCS; 2017-12-23)
PROC: 30233N1 Transfusion of Nonautologous Red Blood Cells into Peripheral Vein, Percutaneous Approach (ICD-10-PCS; 2017-12-23)
PROC: 5A09357 Assistance with Respiratory Ventilation, Less than 24 Consecutive Hours, Continuous Positive Airway Pressure (ICD-10-PCS; 2017-12-24)
PROC: 02HV33Z Insertion of Infusion Device into Superior Vena Cava, Percutaneous Approach (ICD-10-PCS; principal; 2017-12-25)
PROC: 0DJ08ZZ Inspection of Upper Intestinal Tract, Via Natural or Artificial Opening Endoscopic (ICD-10-PCS; 2017-12-27)
DX: K92.2 Gastrointestinal hemorrhage, unspecified (principal); J96.21 Acute and chronic respiratory failure with hypoxia; K72.00 Acute and subacute hepatic failure without coma; D62 Acute posthemorrhagic anemia; J44.0 Chronic obstructive pulmonary disease with (acute) lower respiratory infection; N17.9 Acute kidney failure, unspecified; B44.9 Aspergillosis, unspecified; I42.9 Cardiomyopathy, unspecified; E87.2 Acidosis; E86.1 Hypovolemia; I48.0 Paroxysmal atrial fibrillation; E78.5 Hyperlipidemia, unspecified; I50.9 Heart failure, unspecified; I25.10 Atherosclerotic heart disease of native coronary artery without angina pectoris; H26.9 Unspecified cataract; I11.0 Hypertensive heart disease with heart failure; D69.6 Thrombocytopenia, unspecified; E87.5 Hyperkalemia; K63.5 Polyp of colon; I27.20 Pulmonary hypertension, unspecified; Z66 Do not resuscitate; R91.1 Solitary pulmonary nodule; Z87.11 Personal history of peptic ulcer disease; Z90.79 Acquired absence of other genital organ(s); Z85.46 Personal history of malignant neoplasm of prostate; Z88.8 Allergy status to other drugs, medicaments and biological substances; Z99.81 Dependence on supplemental oxygen; Z86.711 Personal history of pulmonary embolism; Z82.49 Family history of ischemic heart disease and other diseases of the circulatory system; Z82.5 Family history of asthma and other chronic lower respiratory diseases; Z87.891 Personal history of nicotine dependence
CPT/HCPCS: 36415; 36600; 71045; 80048; 80053; 80202; 82270; 82803; 83605; 83880; 84484; 85014; 85018; 85025; 85027; 85060; 85610; 85730; 86022; 86140; 86850; 86900; 86901; 86922; 86927; 87641; 93005; 93306; 94640; 94660; 94760; 99156; 99285; A9270-GY; C1751; J0610; J1940; J2250; J2270; J2543; J2920; J3010; J3370; J3430; P9017; P9040